=== PATIENT | female | born 1935 | race Caucasian/White ===

== ENCOUNTER 2018-06-16 13:49 | Inpatient (IN) | payer MEDICARE, BC ==
--- NOTE | 2018-06-16 14:17 | ED ---
Neurological HPI - HPI Summary HPI Summary: This patient is a 83 year old F BIBA to [facility] s/p fall that occurred at 1130. Pt states she woke up this morning and felt fine, she then went to the [facility] for lunch. Pt was seated when her right eye pulling to the middle, she felt pressure behind the eye, and she had visual changes. She states that when she shut her left eye her right was fine and when she shut her right eye her left eye was fine. She was seated playing cards at this time, without difficulty, and when she stood up to get something she felt off balance and fell over. Patient reports that she still feels off balance and that her right eye is still bothering her. Pt denies feeling light headed or a feeling of near syncope. She also denies LOC and injury on fall. Pt states she had a similar episode years ago and that it resolved quickly. Pt is on on blood thinners. She states that her wooziness is worse when she stands. - History of Current Complaint Chief Complaint: EDSyncope Stated Complaint: DIZZINESS Time Seen by Provider: 06/16/18 14:02 Hx Obtained From: Patient Onset/Duration: Started hours ago, Still Present Timing: Constant Onset Severity: Mild Current Severity: Mild Pain Intensity: 0 Pain Scale Used: 0-10 Numeric Character: Other: - off balance Syncope Context: Loss of Consciousness: No Associated Signs and Symptoms: Positive: Lightheadness. Negative: Loss of Consciousness, Dizziness - Allergy/Home Medications Allergies/Adverse Reactions: Allergies Allergy/AdvReac Type Severity Reaction Status Date / Time prednisone Allergy See Comment Verified 06/16/18 14:07 Home Medications: Home Medications Albuterol HFA INHALER* [Ventolin HFA Inhaler*] 2 puff INH Q4H PRN 06/16/18 [ History Confirmed 06/16/18] Atorvastatin* [Lipitor*] 80 mg PO DAILY 06/16/18 [History Confirmed 06/16/18] Balsalazide Sodium CAP(NF) [Colazal CAP(NF)] 750 mg PO BID 06/16/18 [History Confirmed 06/16/18] Calcium Carbonate/Vitamin D3 [Calcium 600 + Vit D Tablet] 1 tab PO DAILY [History Confirmed 06/16/18] Dofetilide CAP* [Tikosyn CAP*] 125 mcg PO BID 06/16/18 [History Confirmed ] Dulaglutide (NF) [Trulicity (NF)] 0.75 mg SUBCUT WEEKLY 06/16/18 [History Confirmed 06/16/18] Lansoprazole CAP (NF) [Prevacid CAP (NF)] 30 mg PO DAILY 06/16/18 [History Confirmed 06/16/18] Levothyroxine TAB* [Synthroid TAB*] 12.5 mcg PO DAILY 06/16/18 [History Confirmed 06/16/18] Lisinopril TAB* [Prinivil TAB*] 5 mg PO DAILY 06/16/18 [History Confirmed ] Losartan TAB* [Cozaar TAB*] 25 mg PO DAILY 06/16/18 [History Confirmed 06/16/18] Metoprolol Succinate XL TAB* [Toprol XL TAB*] 100 mg PO DAILY 06/16/18 [History Confirmed 06/16/18] Mometasone NASAL (NF) [Nasonex (NF)] 1 spray BOTH NARES DAILY 06/16/18 [History Confirmed 06/16/18] Nitrofurantoin Macrocrystals* [Macrodantin 100 mg*] 100 mg PO BID 06/16/18 [ History Confirmed 06/16/18] SitaGLIPtin (NF) [Januvia (NF)] 100 mg PO DAILY 06/16/18 [History Confirmed 11/02] Spironolactone TAB* [Aldactone TAB*] 25 mg PO DAILY 06/16/18 [History Confirmed 06/16/18] glipiZIDE TAB* [Glucotrol TAB*] 5 mg PO BID 06/16/18 [History Confirmed 06/16/18 ] PMH/Surg Hx/FS Hx/Imm Hx Endocrine/Hematology History: Reports: Hx Diabetes - ON MEDS, Hx Thyroid Disease - HYPOTHYROID, Hx Anemia - SLIGHTLY Denies: Hx Bone Marrow Disease, Hx Sickle Cell Disease Cardiovascular History: Reports: Hx Coronary Artery Disease, Hx Hypercholesterolemia, Hx Hypertension, Hx Valvular Heart Disease - MITRAL VALVE REPLACEMENT 01/2012, Other Cardiovascular Problems/Disorders - cardiac ablation X2, afib,MVR Respiratory History: Reports: Hx Asthma, Hx Pneumonia, Hx Sleep Apnea - CPAP GI History: Reports: Hx Gastroesophageal Reflux Disease, Other GI Disorders - UNCERATIVE COLITIS- IN REMISSION Musculoskeletal History: Reports: Hx Arthritis - HANDS,ELBOWS,BACK,KNEES Sensory History: Reports: Hx Contacts or Glasses - glasses, Hx Glaucoma Denies: Hx Hearing Aid Opthamlomology History: Reports: Hx Contacts or Glasses - glasses, Hx Glaucoma - Surgical History Surgery Procedure, Year, and Place: mitral valve replacement, cardiac ablation x2; hysterectomy 1975, left breast cyst removal 1975, tonsillectomy, Hx Anesthesia Reactions: No Infectious Disease History: No Infectious Disease History: Denies: Traveled Outside the [place] in Last 30 Days - Family History Known Family History: Positive: Hypertension - Social History Alcohol Use: None Substance Use Type: Reports: None Smoking Status (MU): Never Smoked Tobacco Review of Systems Constitutional: Negative - injury , Other - trouble ambulating Positive: Other - fall ENT: Other - right eye pulling to the middle, she felt pressure behind the eye , and she had visual changes Neurological: Negative - light headedness , Other - "feels woozy" Negative: Syncope All Other Systems Reviewed And Are Negative: Yes Physical Exam - Summary Physical Exam Summary: Appearance: Well-appearing, Well-nourished, lying in bed comfortably Skin: Warm, dry, no obvious rash Eyes: sclera anicteric, no conjunctival pallor ENT: mucous membranes moist, pharynx appears normal Neck: Supple, nontender Respiratory: Clear to auscultation, no signs of respiratory distress Cardiovascular: Normal S1, S2. No murmurs. Normal distal pulses in tibial and radial bilaterally. Abdomen: Soft, nontender, normal active bowel sounds present Musculoskeletal: Normal, Strength/ROM Intact Neurological: A&Ox3, there is mild fine motor ataxia as well as truncal ataxia. The fine motor ataxia is most pronounced on the right. The patient notes diplopia when gazing to the left although I do not see any definite gaze paresis. There is some horizontal nystagmus of the left eye. The remainder of the cranial nerve exam is normal. Strength in the extremities is felt to be normal, as are deep tendon reflexes. Heel to dan maneuver is normal bilaterally. The patient was able to get up to sit I needed, but upon standing she immediately became unsteady and had to be supported. She was unable to take a step. Psychiatric: affect is normal, does not appear anxious or depressed Triage Information Reviewed: Yes Vital Signs On Initial Exam: Initial Vitals Temp Pulse Resp BP Pulse Ox 98.5 F 83 16 162/95 98 06/16/18 13:55 06/16/18 13:55 06/16/18 13:55 06/16/18 13:55 06/16/18 13:55 Vital Signs Reviewed: Yes - Mariana Coma Scale Best Eye Response: 4 - Spontaneous Best Motor Response: 6 - Obeys Commands Best Verbal Response: 5 - Oriented Coma Scale Total: 15 Diagnostics - Vital Signs Vital Signs Temp Pulse Resp BP Pulse Ox 06/16/18 13:55 98.5 F 83 16 162/95 98 - Laboratory Result Diagrams: 06/16/18 15:00 06/17/18 06:01 Lab Statement: Any lab studies that have been ordered have been reviewed, and results considered in the medical decision making process. - CT CT brain CT Interpretation Completed By: Radiologist - 1. NO EVIDENCE FOR GROSS ACUTE INFARCT, MASS EFFECT OR HEMORRHAGE. 2. CONSIDER MR IMAGING FOR FURTHER EVALUATION. 3. OLD LACUNAR INFARCTS. ED physician has reviewed this radiology report. - EKG 1513 Cardiac Rate: Other Rate - Atrial- sensed ventricular paced rhythm EKG Interpretation: paced NIH Scale - NIH Scale Level of Consciousness: Alert/Keenly Responsive Ask Patient the Month and His/Her Age: Both Correct Ask Pt to Open/Close Eyes and Reformatory Attendant/Release Non-Paretic Hand: Both Correctly Best Gaze (Only Horizontal Eye Movement): Normal Visual Field Testing: Partial Hemianopia Facial Paresis-Pt to Smile & Close Eyes or Grimace Symmetry: Normal/Symmetrical Motor Function - Right Arm: No Drift-Holds 10 Seconds Motor Function - Left Arm: No Drift-Holds 10 Seconds Motor Function - Right Leg: No Drift-Holds 10 Seconds Motor Function - Left Leg: No Drift-Holds 10 Seconds Limb Ataxia-Must be out of Proportion to Weakness Present: Present in One Limb Sensory (Use Pinprick to Test Arms/Legs/Trunk/Face): Normal Best Language (Describe Picture, Name Items): No Aphasia Dysarthria (Read Several Words): Normal Extinction and Inattention: No Abnormality Total Score: 2 Course/Dx - Course Assessment/Plan: This patient is a 83 year old F BIBA to [facility] s/p fall that occurred at 1130. Pt states she woke up this morning and felt fine, she then went to the [facility] for lunch. Pt was seated when her right eye pulling to the middle, she felt pressure behind the eye, and she had visual changes. She states that when she shut her left eye her right was fine and when she shut her right eye her left eye was fine. She was seated playing cards at this time, without difficulty, and when she stood up to get something she felt off balance and fell over. Patient reports that she still feels off balance and that her right eye is still bothering her. Pt denies feeling light headed or a feeling of near syncope. She also denies LOC and injury on fall. Pt states she had a similar episode years ago and that it resolved quickly. Pt is on on blood thinners. She states that her wooziness is worse when she stands. An EKG reveals paced. CT Brain reveals, per radiologist, 1. NO EVIDENCE FOR GROSS ACUTE INFARCT, MASS EFFECT OR HEMORRHAGE. 2. CONSIDER MR IMAGING FOR FURTHER EVALUATION. 3. OLD LACUNAR INFARCTS. The patient will be admitted for CVA. The patient is agreeable with this plan. - Differential Dx Differential Diagnoses Neuro: Positive: Cerebrovascular Accident, Hypoglycemia, Labyrinthitis, Vasovagal Reaction - Diagnoses Provider Diagnoses: CVA (cerebral vascular accident) - Physician Notifications Discussed Care Of Patient With: Justa Okeefe Time Discussed With Above Provider: 15:01 Instructed by Provider To: Other - Admitted to hospitalist, obtain MRI of the brain. Neurologist will see the patient in the hospital. Discharge - Sign-Out/Discharge Documenting (check all that apply): Patient Departure - Discharge Plan Condition: Guarded Disposition: ADMITTED TO [facility] - Billing Disposition and Condition Condition: GUARDED Disposition: Admitted to [facility] - Attestation Statements Document Initiated by Renetta: Yes Documenting Scribe: Bert Lara Provider For Whom Renetta is Documenting (Include Credential): Chato Aguilera MD Scribe Attestation: Bert Chester , kassyed for Chato Aguilera MD on 06/17/18 at 1024. Scribe Documentation Reviewed: Yes Provider Attestation: The documentation as recorded by the Bert sosa accurately reflects the service I personally performed and the decisions made by me, Chato Aguilera MD
--- NOTE | 2018-06-16 14:51 | RAD ---
INDICATION: Acute ataxia, suspect cerebellar infarct. COMPARISON: There are no relevant prior studies available for comparison. TECHNIQUE: Contiguous axial sections of the brain were obtained from the skull base to the vertex without contrast. FINDINGS: The ventricles, cisterns and sulci are enlarged consistent with diffuse atrophy. There are small areas of decreased density in the subcortical and periventricular white matter suggestive of mild chronic small vessel ischemic changes. There appeared be bilateral lacunar chronic infarcts in the frontal lobes. There is no evidence for hemorrhage. No significant focal osseous abnormality is seen. The visualized portion of the paranasal sinuses and mastoid air cells appear clear. IMPRESSION: 1. NO EVIDENCE FOR GROSS ACUTE INFARCT, MASS EFFECT OR HEMORRHAGE. 2. CONSIDER MR IMAGING FOR FURTHER EVALUATION. 3. OLD LACUNAR INFARCTS.
[2018-06-16 15:16] LABS: ABS Basophils 0 10^3/ul (0-0.2); ABS Eosinophils 0.1 10^3/ul (0-0.6); ABS Monocytes 0.8 10^3/ul (0-0.8); ABS Neutrophils 5.3 10^3/ul (1.5-7.7); ABS Nucleated RBC 0 10^3/ul; Eosinophil % 1.5 % (0-6); Hematocrit 28 % (35-47); Hemoglobin 9.1 g/dl (12.0-16.0); Lymphocyte % 23.9 % (25-47); Mean Corpuscular HGB Conc 33 g/dl (31-36); Mean Corpuscular Hemoglobin 28 pg (27-31); Mean Corpuscular Volume 86 fL (80-97); Mean Platelet Volume 7.5 um3 (7.4-10.4); Nucleated Red Blood Cells % 0; Platelet Count 261 10^3/ul (150-450); Red Blood Count 3.22 10^6/ul (4.00-5.40); Red Cell Distribution Width 16 % (10.5-15); White Blood Count 8.2 10^3/ul (3.5-10.8)
[2018-06-16 15:23] LABS: INR 1.2 (0.77-1.02)
[2018-06-16 15:28] LABS: Urine Appearance Clear; Urine Blood Negative (Negative); Urine Color Yellow; Urine Ketones Negative (Negative); Urine Protein Negative (Negative); Urine Specific Gravity 1.009 (1.010-1.030); Urine Urobilinogen Negative (Negative)
[2018-06-16 15:46] LABS: EGFR Non-African American 44.4 (>60)
[2018-06-16] MEDS ORDERED: Iodixanol* (CONTRAST) 320 MG/ML 100 ML SDV IV ONE (15:53)
[2018-06-16] MEDS ORDERED: Albuterol HFA INHALER* 8 gm MDI INH PRN (16:08)
--- NOTE | 2018-06-16 16:12 | ADMNOTE ---
Subjective Date of Service: 06/16/18 Interval History: ADMISSION HISTORY AND PHYSICAL EXAM: Allergies Allergy/AdvReac Type Severity Reaction Status Date / Time prednisone Allergy See Comment Verified 06/16/18 14:07 Home Medications Medication Instructions Recorded Confirmed Type Multivitamins/Minerals TAB* [Thera 1 tab PO DAILY 08/14/12 06/16/18 History M Plus*] Rivaroxaban TAB(*) [Xarelto 20 mg] 20 mg PO DAILY 09/30/14 06/16/18 History metFORMIN* [Glucophage*] 1 tab PO BID 09/30/14 06/16/18 History Clopidogrel TAB* [Plavix TAB*] 75 mg PO DAILY 01/11/15 06/16/18 History Albuterol HFA INHALER* [Ventolin 2 puff INH Q4H PRN 06/16/18 06/16/18 History HFA Inhaler*] Atorvastatin* [Lipitor*] 80 mg PO DAILY 06/16/18 06/16/18 History Balsalazide Sodium CAP(NF) 750 mg PO BID 06/16/18 06/16/18 History [Colazal CAP(NF)] Calcium Carbonate/Vitamin D3 1 tab PO DAILY 06/16/18 06/16/18 History [Calcium 600 + Vit D Tablet] Dofetilide CAP* [Tikosyn CAP*] 125 mcg PO BID 06/16/18 06/16/18 History Dulaglutide (NF) [Trulicity (NF)] 0.75 mg SUBCUT WEEKLY 06/16/18 06/16/18 History Lansoprazole CAP (NF) [Prevacid 30 mg PO DAILY 06/16/18 06/16/18 History CAP (NF)] Levothyroxine TAB* [Synthroid TAB*] 12.5 mcg PO DAILY 06/16/18 06/16/18 History Lisinopril TAB* [Prinivil TAB*] 5 mg PO DAILY 06/16/18 06/16/18 History Losartan TAB* [Cozaar TAB*] 25 mg PO DAILY 06/16/18 06/16/18 History Metoprolol Succinate XL TAB* 100 mg PO DAILY 06/16/18 06/16/18 History [Toprol XL TAB*] Mometasone NASAL (NF) [Nasonex 1 spray BOTH NARES DAILY 06/16/18 06/16/18 History (NF)] Nitrofurantoin Macrocrystals* 100 mg PO BID 06/16/18 06/16/18 History [Macrodantin 100 mg*] SitaGLIPtin (NF) [Januvia (NF)] 100 mg PO DAILY 06/16/18 06/16/18 History Spironolactone TAB* [Aldactone 25 mg PO DAILY 06/16/18 06/16/18 History TAB*] glipiZIDE TAB* [Glucotrol TAB*] 5 mg PO BID 06/16/18 06/16/18 History HPI: The patient was in her usual state of health until today about 12:30. She was playing cards with some friends. When she got up from the table and walked a few steps she was very dizzy and fell to the left side and fell down. She had diploplia. 911 was called. She never had this feeling before. Family History: Findings - Mother had DM, father had atrial fib. Social History: Findings - No alcohol or tobacco use. . Son Simon Anderson is her SDM. Past Medical History: Findings - Mitral valve bioprosthesis 2011. Coronary stenting 2014. Ablation. Tonsillectomy, breast sx, hysterectomy, LBBB, ischemic cardiomyopathy, Review of Systems - Measurements Intake and Output: Intake and Output Last 24 Hours 06/14/18 06/15/18 06/16/18 06/17/18 06:59 06:59 06:59 06:59 Weight 164 lb - Review of Systems Constitutional Symptoms: Negative: Weight Gain, Weight Loss, Weakness, Fatigue, Fever, Night Sweats, Unexplained Falls, Other Dermatology: Positive: Normal HEENT: Positive: Normal Eyes: Positive: Double Vision Thyroid: Positive: Primary Hypothyroidism Pulmonary: Positive: Normal Cardiology: Positive: Other - PAF Gastroenterology: Positive: Normal Genital - Urinary: Positive: Normal Endocrinology: Positive: Thyroid Problems, Diabetes Mellitus Hematologic/Lymphatic: Positive: Anemia Neurology: Positive: Normal Psychiatry: Positive: Normal Allergic/Immunologic: Negative: Hx Anaphylaxis, Hx Angioedema, Hx Environmental, Hx Seasonal, Athsma, Hx HIV, Immunocompromise, Swollen Glands LymphNodes, Other Objective Vital Signs - 8 hr 06/16/18 06/16/18 06/16/18 13:55 13:56 14:00 Temperature 98.5 F Pulse Rate 83 87 84 Respiratory 16 Rate Blood Pressure 162/95 162/95 (mmHg) O2 Sat by Pulse 98 98 97 Oximetry 06/16/18 06/16/18 06/16/18 14:16 14:37 14:56 Temperature Pulse Rate 86 86 83 Respiratory 15 19 22 Rate Blood Pressure 195/77 166/92 170/69 (mmHg) O2 Sat by Pulse 94 95 95 Oximetry 06/16/18 06/16/18 15:00 15:26 Temperature Pulse Rate 81 80 Respiratory 20 15 Rate Blood Pressure 157/80 (mmHg) O2 Sat by Pulse 94 95 Oximetry Oxygen Devices in Use Now: None Appearance: Alert, partly up in bed. In good spirits. Looks comfortable. Eyes: No Scleral Icterus Ears/Nose/Mouth/Throat: Clear Oropharnyx, Mucous Membranes Moist Neck: NL Appearance and Movements; NL JVP, No Thyroid Enlargement, Masses Respiratory: Symmetrical Chest Expansion and Respiratory Effort, Clear to Auscultation, Clear to Percussion Extremities: No Edema, No Clubbing, Cyanosis, - Skin: No Rash or Ulcers, No Nodules or Sclerosis, - Neurological: Alert and Oriented x 3, NL Sensation Result Diagrams: 06/16/18 15:00 06/16/18 15:00 Assess/Plan/Problems-Billing Assessment: - Patient Problems (1) CVA (cerebral vascular accident) Current Visit: Yes Status: Acute Code(s): I63.9 - CEREBRAL INFARCTION, UNSPECIFIED SNOMED Code(s): 328836271 Comment: Dr. Okeefe to evaluate. CTA head/neck ordered. PT eval. Continue rivaroxaban. (2) Diabetes Current Visit: Yes Status: Acute Code(s): E11.9 - TYPE 2 DIABETES MELLITUS WITHOUT COMPLICATIONS SNOMED Code(s): 96181263 Comment: Continue home dose glargine insulin. Lispro by SS. Hold metformin , continue gipizide and other meds as available. (3) Hypothyroid Current Visit: Yes Status: Acute Code(s): E03.9 - HYPOTHYROIDISM, UNSPECIFIED SNOMED Code(s): 53011705 Comment: Add on TSH. Continue levothyroxine. (4) Atrial fibrillation Current Visit: Yes Status: Acute Code(s): I48.91 - UNSPECIFIED ATRIAL FIBRILLATION SNOMED Code(s): 83454140 Comment: Continue dofetilide, metoprolol, rivaroxaban.
[2018-06-16] MEDS ORDERED: NS 0.9% 1000 ML* 1,000 ML IV SCH (16:15)
--- NOTE | 2018-06-16 17:54 | RAD ---
INDICATION: Ataxia. COMPARISON: Comparison is made with a prior CT of the brain from June 16, 2018. TECHNIQUE: A CT angiogram of the head and neck was performed following intravenous injection of 80 ml of Visipaque 320 nonionic contrast. Contiguous axial sections were obtained from the thoracic inlet through the skull vertex. Images were reconstructed in the coronal and sagittal planes and in a 3-D volume rendered format. The distal cervical internal carotid artery diameter is used as the denominator for stenosis measurement. FINDINGS: RIGHT CAROTID: The common and internal carotid arteries appear patent without evidence for hemodynamically significant stenosis. There is mild calcific plaque within the carotid bulb and proximal internal carotid artery. LEFT CAROTID: The common and internal carotid arteries appear patent without evidence for hemodynamically significant stenosis. There is mild calcific plaque within the carotid bulb and proximal internal carotid artery. VERTEBRALS: The vertebral arteries appear patent without evidence for high-grade stenosis or occlusion. CTA BRAIN: ANTERIOR CIRCULATION: The internal carotid, anterior and middle cerebral arteries appear patent without evidence for high-grade stenosis or occlusion. There is moderate calcific plaque within the petrous and cavernous portions of the internal carotid arteries. POSTERIOR CIRCULATION: The vertebral, basilar and posterior cerebral arteries appear patent without evidence for high-grade stenosis or occlusion. There is moderate to severe calcific plaque present within the intracranial portions of the vertebral arteries. BRAIN PERFUSION: No gross focal perfusion abnormalities are seen. EVALUATION FOR ANEURYSM: No aneurysm or vascular malformation is seen. NECK: No significant enlarged lymph nodes are seen within the neck. The thyroid, parotid and submandibular glands appear to be within normal limits. LUNG APICES: The lung apices appear clear. SINUSES: The paranasal sinuses and mastoid air cells appear clear IMPRESSION: 1. NO EVIDENCE FOR HEMODYNAMICALLY SIGNIFICANT CAROTID STENOSIS. 2. NO EVIDENCE FOR LARGE VESSEL INTRACRANIAL THROMBUS. 3. MODERATE TO SEVERE CALCIFIC PLAQUE WITHIN THE INTRACRANIAL SEGMENT OF THE VERTEBRAL ARTERIES. CPT II Codes: 3100F
[2018-06-16] MEDS ORDERED: Acetaminophen TAB* 325 MG PO PRN (20:22)
[2018-06-16] MEDS: Dofetilide CAP* 125 MCG PO SCH (21:06)
[2018-06-16] MEDS: glipiZIDE TAB* 5 MG PO SCH (21:06)
[2018-06-16] MEDS: Nitrofurantoin Macrocrystals* 100 MG CAP PO SCH (21:06)
[2018-06-16] MEDS: PTO:Balsalazide (NF) 750 MG CAP PO SCH (21:07)
--- NOTE | 2018-06-17 00:48 | CONS ---
NEUROLOGY CONSULTATION REPORT: DATE OF CONSULT: 06/16/18 CONSULTING PROVIDER: Dr. Chato Aguilera. REASON FOR CONSULT: Unsteady gait. CHIEF COMPLAINT: Falling towards the left side. HISTORY OF PRESENT ILLNESS: Ms. Sonal Anderson is a pleasant 83-year-old right- handed who has a history of hypertension; dyslipidemia; diabetes mellitus type 2; atrial fibrillation, on Xarelto; valvular heart disease, status post mitral valve replacement; pacemaker/defibrillator implanted in 2014, who presented to [facility] with sudden onset gait imbalance. The patient was in normal state of health earlier this morning. She was going to the [employer] to play [employer]. She was fine going in at 11:30. She was actually helping set up the snack tables. The patient played for approximately 15-20 minutes. She stood up to change from one table to another when suddenly she fell. She did hit her left knee. She bruised the left knee. She did not hit her head. She did not lose consciousness. She was having trouble standing up as if every time she stood up, she would sway towards the left side. During the same time period, the patient stated that she felt some pulling sensation in the right eye. She felt that her right eye was going towards the medial aspect of her vision instead of looking out. She also had double vision, which she described as horizontal. She did not close one eye to check if the double vision will go away. She denied any double vision at this time, but still has gait imbalance. She has never had any similar episodes in the past, although she did have double vision 5 years ago that seemed to spontaneously resolve. The patient has no history of stroke. She had a CT of the head completed at 1414 that I personally reviewed. There is evidence of old lacunar infarcts. There is no evidence of an acute intracranial process; however, there is calcification involving both left greater than right vertebral arteries. PAST MEDICAL HISTORY: As per HPI and in addition, she has a history of ulcerative colitis. PAST SURGICAL HISTORY: 1. Mitral valve bioprosthesis, 2011. 2. Coronary artery stenting, 2014. 3. Pacemaker/defibrillator placement in 2014. 4. Ablation for atrial fibrillation. 5. Tonsillectomy. 6. Breast biopsy. 7. Hysterectomy. 8. Left bundle-branch block. 9. Ischemic cardiomyopathy. HOME MEDICATIONS: 1. Multivitamins. 2. Rivaroxaban 20 mg p.o. daily. 3. Metformin 1 tablet p.o. b.i.d. 4. Clopidogrel 75 mg p.o. daily. 5. Albuterol 2 puffs inhaled every 4 hours. 6. Atorvastatin 80 mg p.o. daily. 7. Balsalazide 750 mg b.i.d. 8. Calcium carbonate 1 tablet p.o. daily. 9. Dulaglutide 0.75 mg subcutaneously weekly. 10. Lansoprazole 30 mg p.o. daily. 11. Levothyroxine 12.5 mcg daily. 12. Lisinopril 5 mg p.o. daily. 13. Metoprolol 100 mg p.o. daily. 14. Mometasone spray both nares. 15. Nitrofurantoin 100 mg p.o. b.i.d. 16. Sitagliptin 100 mg p.o. daily. 17. Spironolactone 25 mg p.o. daily. 18. Glipizide 5 mg p.o. b.i.d. ALLERGIES: Questionable allergy to PREDNISONE. REVIEW OF SYSTEMS: A 14-point review of systems was obtained, were otherwise negative except for what was mentioned in the HPI. PHYSICAL EXAM: Vital Signs: Temperature 98.5, heart rate 81, respiratory rate of 15, oxygen saturation 95% on room air, blood pressure 157/80. General: Well - nourished, well-developed female, in no acute distress. Normocephalic, atraumatic without any obvious abnormality. Eyes: Conjunctivae/corneas are clear. Neck is supple and symmetrical with no carotid bruits. Lungs are clear to auscultation bilaterally. Irregular rhythm with normal rate. Normal S1, S2. Extremities: Normal range of motion with no cyanosis. There is slight laceration in the left knee region, but no bleeding. Skin: No skin lesions. Psych: Affect is broad. Neurological Examination: Mental status; awake, alert , oriented to person, place and time, and general circumstance. Speech and language including expression, naming, and repetition and comprehension were all assessed and found to be normal. Cranial nerves: Normal confrontation testing bilaterally. Pupils are mid range and reactive to light. Normal consensual response. Extraocular muscles are intact. She has no ptosis. Sensation is intact on the forehead, cheeks, and jaw region. There is a slight upper motor neuron facial droop on the left. This is very mild. Able to hear throughout the history process. Symmetrical palate elevation. Normal strength against resistance. Tongue is symmetrical and midline with no atrophy or fasciculation. Motor: Right/left, no abnormal movements or pronator drift. Normal bulk and tone throughout. No fasciculation. Strength is 5/5 in the upper and lower, distal and proximal motor regions. Reflexes, right/Left: Brachioradialis 1/1, biceps 1/2, triceps 1/2, patella 1/1, ankle 0/0, plantar flexor/flexor. Sensation is intact to light touch and pinprick throughout. There is reduced vibratory sensation, but intact proprioception at the great toes. Coordination: Mild dysmetria at the [id number] and [id number] testing on the left side. Gait and Station: Ataxia. The patient is swaying to the left side. Wide-based gait. DIAGNOSTIC STUDIES/LAB DATA: WBC 8.2, hemoglobin 9.1, hematocrit 28, platelet count 261. INR 1.20. Sodium 136, potassium 4.4, chloride 105, carbon dioxide 24. BUN of 1.16. Troponin of 0.22. Urinalysis, no pyuria. ASSESSMENT AND RECOMMENDATION: Ms. Sonal Anderson is an 83-year-old female with history of hypertension; dyslipidemia; coronary artery disease; atrial fibrillation, on Xarelto, she is also taking Plavix; ischemic cardiomyopathy, who is status post pacemaker defibrillator placement, which we suspect could possibly be MRI compatible, who presented with transient symptoms of horizontal diplopia, which has resolved but still with persistent ataxia towards the left side. The differential diagnosis here is an ischemic stroke involving the left cerebellum, left maxwell, or the right parietal hemisphere involving the right MCA distribution. NIH stroke scale of 2 due to mild left facial droop and dysmetria. She is not a candidate for IV tPA as she is outside the therapeutic window; however, we will need a stat CTA head and neck to evaluate for any posterior circulatory occlusion, especially basal artery occlusion. I doubt that given her clinical examination, but she can deteriorate rapidly if this is the case. In the meantime, I recommend admission to the hospitalist service for further stroke workup and post stroke monitoring. Neuro checks every 4 hours over the next 24 hours. Please order a 2-D transthoracic echo. I discussed this case with the bedside nurse who will call our cardiopulmonary technician and eeg tech to obtain the CTA head and neck as soon as possible. Please place her on telemetry. I will check fasting lipid panel. Continue the Plavix and Xarelto. Given that she is on anticoagulation therapy and antiplatelet therapy, please keep her systolic blood pressure range between 140 to less than 180. PT/OT/AIRCRAFT AVIONICS TECHNICIAN evaluate and treat. Please perform a bedside swallow evaluation. If she passes, then advance her diet as tolerated. Do not place a urinary catheter unless there is evidence of urinary retention. VTE prophylaxis, she is already on Xarelto. 1. Suspect acute ischemic stroke involving the posterior circulation 2. Hypertensive urgency. 3. Chronic atrial fibrillation. 4. History of coronary artery disease. 5. Diabetes. 6. Dyslipidemia. 7. Ischemic cardiomyopathy. Time Spent: 75 minutes of which more than 50% was spent obtaining history, examination, and discussing the treatment plan and recommendation as mentioned above. [id number]/CPS #: [id number] MTDD
[2018-06-17] MEDS: Levothyroxine TAB* 25 MCG TAB PO SCH (05:50)
[2018-06-17 07:21] LABS: EGFR Non-African American 143.4 (>60)
[2018-06-17] MEDS ORDERED: Clopidogrel TAB* 75 MG PO SCH (09:00)
[2018-06-17] MEDS ORDERED: Dextrose 50% Syringe 50 ML* 25 GM/50 ML SYRINGE IV PUSH PRN (09:10)
[2018-06-17] MEDS: CMC:SitaGLIPtin (NF) 100 MG TAB PO SCH (09:32)
[2018-06-17] MEDS: Losartan TAB* 25 MG PO SCH (09:33)
[2018-06-17] MEDS: glipiZIDE TAB* 5 MG PO SCH ×2 (09:33→21:19)
[2018-06-17] MEDS: Lisinopril TAB* 5 MG PO SCH (09:33)
[2018-06-17] MEDS: Dofetilide CAP* 125 MCG PO SCH ×2 (09:33→21:18)
[2018-06-17] MEDS: CMC:Pantoprazole TAB (NF) 40 MG TAB PO SCH (09:33)
[2018-06-17] MEDS: Spironolactone TAB* 25 MG PO SCH (09:33)
[2018-06-17] MEDS: Atorvastatin* 80 MG TAB PO SCH (09:34)
[2018-06-17] MEDS: Nitrofurantoin Macrocrystals* 100 MG CAP PO SCH ×2 (09:34→21:18)
[2018-06-17] MEDS: Metoprolol Succinate XL TAB* 100 MG PO SCH (09:34)
[2018-06-17] MEDS ORDERED: Magnesium Sulfate 1 GM IV* 1 GM/100 ML BAG IV ONE (10:05)
--- NOTE | 2018-06-17 10:31 | PN ---
Subjective Date of Service: 06/17/18 Length of Stay: 1 Days Neurology is following Mrs. Anderson for the evaluation and management of stroke. Interval History: She slept well last night. The TV kept flickering on and off and she thinks her was in the room. Her had past away years ago. She denied any visual or auditory hallucinations. She denied any falls. She walked around the hallway with me and was staggering. She is tolerating Xarelto and Plavix. She does have chronic numbness in her feet. She also stated that she never had a normal gait and always staggers when walking. She doesn't fall much but the times she did fall, it was due to tripping over her feet. CTA head and neck without contrast completed on 06/16/2018: no large vessel occlusion. She has calcification throughout the vertebral arteries bilaterally. Review of Systems: Denied CP, SOB, or palpitations. Family History: Findings - Mother had DM, father had atrial fib. Social History: Findings - No alcohol or tobacco use. . Son Simon Anderson is her SDM. Past Medical History: Findings - Mitral valve bioprosthesis 2011. Coronary stenting 2014. Ablation. Tonsillectomy, breast sx, hysterectomy, LBBB, ischemic cardiomyopathy, Objective Active Medications: Acetaminophen (Tylenol Tab*) 650 mg PO Q4H PRN PRN Reason: FEVER/PAIN Last Admin: 06/16/18 21:05 Dose: 650 mg Albuterol (Ventolin Hfa Inhaler*) 2 puff INH Q4H PRN PRN Reason: SHORTNESS OF BREATH Atorvastatin Calcium (Lipitor*) 80 mg PO DAILY [facility] Last Admin: 06/17/18 09:34 Dose: 80 mg Balsalazide (Balsalazide (Nf)) 750 mg PO BID [facility] Last Admin: 06/16/18 21:07 Dose: Not Given Clopidogrel Bisulfate (Plavix Tab*) 75 mg PO DAILY [facility] Last Admin: 06/17/18 09:33 Dose: 75 mg Dextrose (D50w Syringe 50 Ml*) 12.5 gm IV PUSH .FOR FS < 60 - SS PRN PRN Reason: FS < 60 Dofetilide (Tikosyn Cap*) 125 mcg PO BID [facility] Last Admin: 06/17/18 09:33 Dose: 125 mcg Glipizide (Glucotrol Tab*) 5 mg PO BID [facility] Last Admin: 06/17/18 09:33 Dose: 5 mg Sodium Chloride (Ns 0.9% 1000 Ml*) 1,000 mls @ 60 mls/hr IV .PER RATE [facility] Last Admin: 06/16/18 20:12 Dose: 60 mls/hr Magnesium Sulfate/Dextrose (Magnesium Sulfate 1 Gm Iv*) 1 gm in 100 mls @ 200 mls/hr IV ONCE ONE Stop: 06/17/18 10:34 Insulin Human Lispro (Humalog*) 0 units SUBCUT ACHS [facility]; Protocol Levothyroxine Sodium (Synthroid Tab*) 12.5 mcg PO DAILY@0600 [facility] Last Admin: 06/17/18 05:50 Dose: 12.5 mcg Lisinopril (Prinivil Tab*) 5 mg PO DAILY [facility] Last Admin: 06/17/18 09:33 Dose: 5 mg Losartan Potassium (Cozaar Tab*) 25 mg PO DAILY [facility] Last Admin: 06/17/18 09:33 Dose: 25 mg Metoprolol Succinate (Toprol Xl Tab*) 100 mg PO DAILY [facility] Last Admin: 06/17/18 09:34 Dose: 100 mg Mometasone Furoate (Nasonex (Nf)) 1 spray BOTH NARES DAILY [facility] Nitrofurantoin Macrocrystals (Macrodantin*) 100 mg PO BID [facility] Stop: 06/17/18 21:01 Last Admin: 06/17/18 09:34 Dose: 100 mg Pantoprazole Sodium (Protonix Tab (Nf)) 40 mg PO DAILY@0730 [facility]; Protocol Last Admin: 06/17/18 09:33 Dose: 40 mg Rivaroxaban (Xarelto(*)) 20 mg PO QPM [facility] Sitagliptin Phosphate (Januvia (Nf)) 100 mg PO DAILY [facility]; Protocol Last Admin: 06/17/18 09:32 Dose: 100 mg Spironolactone (Aldactone Tab*) 25 mg PO DAILY [facility] Last Admin: 06/17/18 09:33 Dose: 25 mg Vital Signs 06/16/18 06/16/18 06/16/18 13:55 13:56 14:00 Temperature 98.5 F Pulse Rate 83 87 84 Respiratory 16 Rate Blood Pressure 162/95 162/95 (mmHg) O2 Sat by Pulse 98 98 97 Oximetry 06/16/18 06/16/1818 14:16 14:37 14:56 Temperature Pulse Rate 86 86 83 Respiratory 15 19 22 Rate Blood Pressure 195/77 166/92 170/69 (mmHg) O2 Sat by Pulse 94 95 95 Oximetry 06/16/18 06/16/18 06/16/18 15:00 15:26 17:00 Temperature Pulse Rate 81 80 Respiratory 20 15 20 Rate Blood Pressure 157/80 (mmHg) O2 Sat by Pulse 94 95 Oximetry 06/16/18 06/16/18 06/16/18 18:45 20:00 22:51 Temperature 98 F 98.1 F Pulse Rate 81 76 Respiratory 20 16 16 Rate Blood Pressure 158/68 117/45 (mmHg) O2 Sat by Pulse 99 95 Oximetry 06/17/18 06/17/18 04:13 07:36 Temperature 98.0 F 97.8 F Pulse Rate 78 86 Respiratory 20 18 Rate Blood Pressure 133/54 152/64 (mmHg) O2 Sat by Pulse 95 97 Oximetry Intake and Output Last 24 Hours 06/15/18 06/16/18 06/17/18 06/18/18 06:59 06:59 06:59 06:59 Intake Total 480 Balance 480 Weight 165 lb 4.8 oz Intake: Oral 480 Other: Estimated Void Medium # Bowel Movements 0 # Voids 1 Oxygen Devices in Use Now: None Neurology Exam: General: Well nourished female in no acute distress. HEENT: Normocephelic/atraumatic, sclera anicteric, mucous membranes moist Neck: Supple Chest: Clear to auscultation bilaterally Cardiovascular: Regular rate and rhythm without murmurs, rubs, gallops Abdomen: Soft, nontender/nondistended Extremities: No clubbing, cyanosis, or edema Neurological Findings: Awake, alert and oriented to person, place, time, and situation. Cranial Nerve: PERRL, EOM-I, mild left facial asymmetry. Motor: s/s throughout, proximal and distal extremities x4 tone/bulk normal Sensation: distal to proximal sensory gradient to light-touch and pinprick demarcated at the mid dan region bilaterally. Deep Tendon Reflex: 1+ in upper extremities, 1+ on the right knee, 2+ left knee , and 0 at the ankles Finger to nose, rapid alternating movements intact without tremor Gait: wide based gait. She crosses right over left and vice versa when ambulating. Result Diagrams: 06/16/18 15:00 06/17/18 06:01 Diagnostic Imaging: CT head without contrast: personally reviewed again today. She has multiple small lacunar infarction. She has right frontal, basal ganglia and left frontal ischemic lacunar infarctions that are old. Assessment/Plan Mrs. Anderson is an 83-year-old female with history of DMII x 30 years, atrial fibrillation on Xarelto and s/p pacemaker/ICD, CAD on Plavix, who presented with sudden onset gait imbalance and fall. She was initially ataxic towards the left. She has a left facial droop. She was not a candidate for IV tPA due to being on Xarelto and was outside the window when evaluated by me. She had a STAT CTA head and neck on 06/16/2018 that showed no evidence of large vessel occlusion and chronic calcification in the vertebral arteries. Today, the patient was not lateralizing to one side but still has moderate sensory ataxia. 1. Suspect TIA or small lacunar stroke in the left cerebellar hemisphere- It is unclear if this is a thrombotic or embolic phenomenon. Work-up is still pending. - She is on Xarelto and Plavix and reports compliance - Please send out genetic testing to check for aspirin and clopidogrel resistant testing since she had this incident while on clopidogrel. I spoke with lab and they will be faxing a form to complete. The form will be mailed to [place] for further testing. - Continue Xarelto and Plavix. She is at high risk for bleeding on the combination of therapy, but clearly at a higher risk for a thromboembolic incident. - Repeat CT head without contrast today - PT/OT/FILTER TIP INSPECTOR evaluation and treatment - 2D TTE with Bubble study - Secondary stroke prevention was discussed with the patient - Pt was told to never have an MRI due to her pacemaker. 2. Hx of falls- multifactorial. The patient has evidence of polyneuropathy most likely related to diabetes and has history of lacunar strokes. 3. Diabetic polyneuropathy- B12 and TSH are normal 4. Hx of lacunar strokes- on Plavix. Keep SBP within normal range 5. Hx of atrial fibrillation- on Xarelto. She's in sinus rhythm Time Spent: 40 minutes was spent discussing the treatment plan with the patient , son, and Dr. Ortiz.
[2018-06-17] MEDS: MOMETASONE BOTH NARES SCH (10:42)
[2018-06-17] MEDS: PTO:Balsalazide (NF) 750 MG CAP PO SCH (11:03)
[2018-06-17] MEDS: BALSALAZIDE 750 MG PO SCH ×2 (11:27→21:18)
[2018-06-17] MEDS: Insulin LISPRO* 1 UNITS UNIT SUBCUT SCH ×3 (12:13→21:19)
--- NOTE | 2018-06-17 13:07 | PN ---
Subjective Date of Service: 06/17/18 Interval History: Pt feels " much better". Ataxia is improving. Is only slightly unsteady on her feet Family History: Findings - Mother had DM, father had atrial fib. Social History: Findings - No alcohol or tobacco use. . Son Simon Anderson is her SDM. Past Medical History: Findings - Mitral valve bioprosthesis 2011. Coronary stenting 2014. Ablation. Tonsillectomy, breast sx, hysterectomy, LBBB, ischemic cardiomyopathy, Objective Active Medications: Acetaminophen (Tylenol Tab*) 650 mg PO Q4H PRN PRN Reason: FEVER/PAIN Last Admin: 06/16/18 21:05 Dose: 650 mg Albuterol (Ventolin Hfa Inhaler*) 2 puff INH Q4H PRN PRN Reason: SHORTNESS OF BREATH Aspirin (Aspirin 81 Mg Chew Tab*) 81 mg PO DAILY [facility] Atorvastatin Calcium (Lipitor*) 80 mg PO DAILY [facility] Last Admin: 06/17/18 09:34 Dose: 80 mg Balsalazide (Balsalazide (Nf)) 1,500 mg PO BID [facility] Last Admin: 06/17/18 11:27 Dose: 1,500 mg Dextrose (D50w Syringe 50 Ml*) 12.5 gm IV PUSH .FOR FS < 60 - SS PRN PRN Reason: FS < 60 Dofetilide (Tikosyn Cap*) 125 mcg PO BID [facility] Last Admin: 06/17/18 09:33 Dose: 125 mcg Glipizide (Glucotrol Tab*) 5 mg PO BID [facility] Last Admin: 06/17/18 09:33 Dose: 5 mg Insulin Human Lispro (Humalog*) 0 units SUBCUT [facility]; Protocol Last Admin: 06/17/18 12:13 Dose: 2 units Levothyroxine Sodium (Synthroid Tab*) 12.5 mcg PO DAILY@0600 [facility] Last Admin: 06/17/18 05:50 Dose: 12.5 mcg Lisinopril (Prinivil Tab*) 5 mg PO DAILY [facility] Last Admin: 06/17/18 09:33 Dose: 5 mg Losartan Potassium (Cozaar Tab*) 25 mg PO DAILY [facility] Last Admin: 06/17/18 09:33 Dose: 25 mg Metoprolol Succinate (Toprol Xl Tab*) 100 mg PO DAILY [facility] Last Admin: 06/17/18 09:34 Dose: 100 mg Mometasone Furoate (Nasonex (Nf)) 1 spray BOTH NARES DAILY [facility] Last Admin: 06/17/18 10:42 Dose: 1 spray Nitrofurantoin Macrocrystals (Macrodantin*) 100 mg PO BID [facility] Stop: 06/17/18 21:01 Last Admin: 06/17/18 09:34 Dose: 100 mg Pantoprazole Sodium (Protonix Tab (Nf)) 40 mg PO DAILY@0730 [facility]; Protocol Last Admin: 06/17/18 09:33 Dose: 40 mg Rivaroxaban (Xarelto(*)) 20 mg PO QPM [facility] Sitagliptin Phosphate (Januvia (Nf)) 100 mg PO DAILY [facility]; Protocol Last Admin: 06/17/18 09:32 Dose: 100 mg Spironolactone (Aldactone Tab*) 25 mg PO DAILY [facility] Last Admin: 06/17/18 09:33 Dose: 25 mg Vital Signs - 8 hr 06/17/18 06/17/18 06/17/18 07:36 11:27 11:38 Temperature 97.8 F 97.6 F Pulse Rate 86 71 Respiratory 18 16 16 Rate Blood Pressure 152/64 130/57 (mmHg) O2 Sat by Pulse 97 98 Oximetry Oxygen Devices in Use Now: None Appearance: 83 yo F in nAD, aAOx3 Eyes: No Scleral Icterus, PERRLA Ears/Nose/Mouth/Throat: NL Teeth, Lips, Gums, Mucous Membranes Moist Neck: NL Appearance and Movements; NL JVP, Trachea Midline Respiratory: Symmetrical Chest Expansion and Respiratory Effort, Clear to Auscultation Cardiovascular: NL Sounds; No Murmurs; No JVD, RRR Abdominal: NL Sounds; No Tenderness; No Distention Lymphatic: No Cervical Adenopathy Extremities: No Edema, No Clubbing, Cyanosis Skin: No Rash or Ulcers, No Nodules or Sclerosis Neurological: Alert and Oriented x 3, - - mild flattening of left nasolalbial fold. mild ataxia. Motor 5/5 b/l, speech clear Result Diagrams: 06/16/18 15:00 06/17/18 06:01 Diagnostic Imaging: CT head without contrast: personally reviewed again today. She has multiple small lacunar infarction. She has right frontal, basal ganglia and left frontal ischemic lacunar infarctions that are old. Assess/Plan/Problems-Billing Mrs. Anderson is an 83-year-old female with history of DMII x 30 years, atrial fibrillation on Xarelto and s/p pacemaker/ICD, CAD on Plavix (Dr. Alva), who presented with sudden onset gait imbalance and fall. She was initially ataxic towards the left. She has a left facial droop. She was not a candidate for IV tPA due to being on Xarelto and was outside the window when evaluated by me. She had a STAT CTA head and neck on 06/16/2018 that showed no evidence of large vessel occlusion and chronic calcification in the vertebral arteries. - Patient Problems (1) CVA (cerebral vascular accident) Comment: Appreciate Dr. Okeefe's consult . CTA head/neck as above. Continue rivaroxaban. Unable to do MRI due to pacer. It is possible that pt may have genetic variant and does not respond to Plavix. Unfortunately genetic testing tkes several days and is not covered by insurance (as per d/w lab and DR. Okeefe) . Spoke with pt's shoes salesperson, Dr. Morse who agreed with switching to ASA from Plavix and recommends doing Plavix genetic testing as outpatient cont PT/OT, awaiting Echo with bubble (last echo inn 08/2018) showed EF 45% (2) Atrial fibrillation Comment: Continue dofetilide, metoprolol, rivaroxaban. (3) Diabetes Comment: Continue . Lispro by SS. Hold metformin, continue gipizide and other meds as available. (4) Hypothyroid Comment: TSH 4.2. Continue levothyroxine. (5) Ulcerative colitis Comment: not in exacerbation, cont balsalazide (6) UTI (urinary tract infection) Comment: E. coli UTI dx on 06/10/18, cont nitrofurantoin (7) DVT prophylaxis Comment: Xarelto Status and Disposition: inpatient
--- NOTE | 2018-06-17 13:15 | RAD ---
HISTORY: ataxia to left, resolving COMPARISONS: June 16, 2018 TECHNIQUE: Multiple contiguous axial CT scans were obtained of the head without intravenous contrast. FINDINGS: HEMORRHAGE/INFARCT: There is no hemorrhage or acute infarct. MASSES/SHIFT: There is no mass or shift. EXTRA-AXIAL SPACES: There are no extra-axial fluid collections. SULCI AND VENTRICLES: The sulci and ventricles are normal in size and position for the patient's stated age. CEREBRUM: There is mild hypoattenuation of the periventricular and subcortical white matter. There is stable chronic lacunar infarct of the right hernandez radiata. BRAINSTEM: There are no focal parenchymal abnormalities. CEREBELLUM: There are no focal parenchymal abnormalities. VESSELS: There is calcification of the cavernous segments of the internal carotid arteries bilaterally and of the distal vertebral arteries bilaterally. PARANASAL SINUSES: The paranasal sinuses are clear. ORBITS: The orbits are unremarkable. BONES AND SOFT TISSUE: No bone or soft tissue abnormalities are noted. OTHER: None IMPRESSION: NO ACUTE INTRACRANIAL PATHOLOGY. CHRONIC SMALL VESSEL ISCHEMIC CHANGE
[2018-06-17] MEDS ORDERED: Perflutren Lipid Microsphere* 3 ML VIAL ONE (14:07)
--- NOTE | 2018-06-17 16:14 | ECHO ---
Patient: DANIEL PEARL [facility] Rec#: [id number] : 1935 Date: 06/17/2018 Age: 83y Height: 163 cm / 64.2 in Weight: 75 kg / 165.3 lbs Sex: F BSA: 1.8 Room#: 438 Admit Date#: 06/16/2018 Type: Inpatient Referring: Justa Okeefe Reading: Evelyn Justin MD Kennel Technician: Yajaira Gutierrez RN RDCS CC: Vanessa Gómez Transthoracic Echocardiogram Indication: TIA BP: 152/64 Rhythm: Paced Findings History: A. fib, CAD, bioprosthetic MVR 2011, pacemaker insertion, DM, HTN, dyslipidemia, hypothyroidism, ischemic cardiomyopathy Technical Comments: The study quality is fair. Left Ventricle: The left ventricular chamber size is normal. Mild to moderate concentric left ventricular hypertrophy is observed. Global left ventricular wall motion and contractility are within normal limits. Left ventricular systolic function is at the lower limits of normal. The estimated ejection fraction is 50-55%. Ventricular septal wall motion has a post-operative appearance. There is abnormal ventricular septal wall motion consistent with right ventricular pacemaker. The assessment of diastolic function is non-diagnostic. Left Atrium: The left atrium is slightly dilated. Right Ventricle: The right ventricular cavity size is normal. The right ventricular global systolic function is normal. A pacemaker wire is visualized in the right ventricle. Right Atrium: The right atrial cavity size is normal. A pacemaker wire is visualized in the right atrium. The bubble study is negative. A patent foramen ovale is not demonstrated by agitated contrast. Aortic Valve: The aortic valve structure is not well visualized. There is mild thickening of the right coronary cusp. There is trace to mild aortic regurgitation. There is mild aortic stenosis. The mean gradient of the aortic valve is 6 mmHg. The aortic valve area, by VTI's, is calculated at 1.9 cm2. Mitral Valve: The mitral valve leaflets are mildly thickened. There is no evidence of mitral regurgitation. The mean gradient across the mitral valve is 5 mmHg. The mitral valve area, by pressure half time, is calculated at 2.2 cm2. MVA by continuity equation is 1.1 cm2. A bioprosthetic mitral valve is present. stented valve, leaflets appear thickend with good excursion. Tricuspid Valve: The tricuspid valve leaflets are normal. There is mild to moderate tricuspid regurgitation. No pulmonary hypertension is noted. There is no tricuspid stenosis. Pulmonic Valve: The pulmonic valve structure is not well visualized. There is no evidence of pulmonic regurgitation. There is no pulmonic stenosis. Pericardium: There is no significant pericardial effusion. A pericardial fat pad is visualized. Aorta: There is no dilatation of the ascending aorta. The aortic arch is not well visualized. There is no dilation of the aortic root. Pulmonary Artery: The main pulmonary artery is not well visualized. Venous: The inferior vena cava appears normal in size. There is a greater than 50% respiratory change in the inferior vena cava dimension. Contrast: Normal saline was used as contrast for the bubble study. Images 109 and 110. A total of 2 ml of diluted Definity was given IV to enhance imaging. Conclusions Mild to moderate concentric left ventricular hypertrophy is observed. Global left ventricular wall motion and contractility are within normal limits. The estimated ejection fraction is 50-55%. The right ventricular global systolic function is normal. The bubble study is negative, no evidence of cardiopulmonary shunting. There is mild thickening of the right coronary cusp. There is trace to mild aortic regurgitation. There is mild aortic stenosis: the mean gradient of the aortic valve is 6 mmHg, the aortic valve area, by VTI's, is calculated at 1.9 cm2. A bioprosthetic mitral valve is present. stented valve, leaflets appear thickend with good excursion. The mean gradient across the mitral valve is 5 mmHg. The mitral valve area, by pressure half time, is calculated at 2.2 cm2. MVA by continuity equation is 1.1 cm2. Exact type and size of valve not known limiting estimate of expected vs measured gradients and valve area, but no evidence of severe stenosis. There is mild to moderate tricuspid regurgitation. Compared with prior echo of 12/21/13, EF has improved, AI is stable, bioprosthetic leaflets appear thicker. PA pressure previously 47 mmHg. Prior echo done with HR 130 bpm. Measurements Name Value Normal Range RVIDd (AP) 2D 2.8 cm (0.9 - 2.6) RVIDd (2D) index 1.55 cm/m2 - RVDdMajor (2D) 3.5 cm (2.2 - 4.4) RAd ISD 4CH 4.8 cm (3.4 - 4.9) RA (A4C)W 3.7 cm (2.9 - 4.6) IVSd (2D) 1.4 cm (0.6 - 1) LVPWd (2D) 1.1 cm (0.6 - 1) IVS:LVPW ratio (2D) 1.27 ratio - LVIDd (2D) 4.4 cm (3.6 - 5.4) LVIDs (2D) 3.2 cm - LVIDd (2D) index 2.43 cm/m2 - LVIDs (2D) index 1.77 cm/m2 - LV FS (2D) 27 % (25 - 45) EF Teichholz (2D) 53 % - Aortic Annulus 1.8 cm (1.4 - 2.6) Ao root diameter (2D) 2.8 cm (2.1 - 3.5) Ascending Ao 3.2 cm (2.1 - 3.4) LA dimension (AP) 2D 4.5 cm (2.3 - 3.8) LA:Ao ratio (2D) 1.61 ratio - LAd ISD 4CH 4.8 cm (2.9 - 5.3) LA ISD 4CH W 3.8 cm (2.5 - 4.5) Aortic root diameter (2D1.55 cm/m2 - LA dimension (2D) index 2.49 cm/m2 - Name Value Normal Range LA ESV BP (A/L) index 27.2 ml/m2 - LV mass (2D) 203.05 g - LV mass (2D) index 112.18 g/m2 - Name Value Normal Range MV E-wave Vmax 1.6 m/sec - MV deceleration time 327 msec - MV A-wave Vmax 1.1 m/sec - MV E:A ratio 1.45 ratio - LV septal e' Vmax 0.05 m/sec - LV lateral e' Vmax 0.08 m/sec - LV average e' Vmax 0.06 m/sec - LV E:e' septal ratio 32 ratio - LV E:e' lateral ratio 20 ratio - LV average E:e' ratio 26.67 ratio - Name Value Normal Range AV Vmax 1.6 m/sec - AV VTI 31.4 cm - AV peak gradient 10 mmHg - AV mean gradient 6 mmHg - LVOT diameter 1.9 cm - LVOT Vmax 0.96 m/sec - LVOT VTI 20.5 cm - LVOT peak gradient 4 mmHg - LVOT mean gradient 2 mmHg - DOI (VTI) 0.65 ratio - DOI (Vmax) 0.6 ratio - STEPHANIA (continuity Vmax) 1.7 cm2 - STEPHANIA (continuity VTI) 1.9 cm2 - Name Value Normal Range MV Vmax 2 m/sec - MV VTI 55.1 cm - MV peak gradient 15 mmHg - MV mean gradient 5 mmHg - MV PHT 100 msec - MVA (PHT) 2.2 cm2 - MVA (continuity VTI) 1.1 cm2 - Name Value Normal Range TR Vmax 2.6 m/sec - TR peak gradient 27 mmHg - RAP 3 mmHg - RVSP 30 mmHg - IVC diameter 1.6 cm - Name Value Normal Range PV Vmax 0.81 m/sec -
[2018-06-17] MEDS ORDERED: Rivaroxaban TAB(*) 20 MG TAB PO SCH (18:00)
[2018-06-18] MEDS: Levothyroxine TAB* 25 MCG TAB PO SCH (05:31)
[2018-06-18 06:30] LABS: ABS Basophils 0 10^3/ul (0-0.2); ABS Eosinophils 0.2 10^3/ul (0-0.6); ABS Lymphocytes 2.9 10^3/ul (1.0-4.8); ABS Monocytes 0.9 10^3/ul (0-0.8); ABS Neutrophils 5.1 10^3/ul (1.5-7.7); ABS Nucleated RBC 0 10^3/ul; Eosinophil % 1.7 % (0-6); Hematocrit 27 % (35-47); Lymphocyte % 31.7 % (25-47); Mean Corpuscular HGB Conc 33 g/dl (31-36); Mean Corpuscular Hemoglobin 28 pg (27-31); Mean Corpuscular Volume 85 fL (80-97); Mean Platelet Volume 7.5 um3 (7.4-10.4); Nucleated Red Blood Cells % 0.1; Platelet Count 239 10^3/ul (150-450); Red Blood Count 3.23 10^6/ul (4.00-5.40); Red Cell Distribution Width 16 % (10.5-15); White Blood Count 9.1 10^3/ul (3.5-10.8)
[2018-06-18 06:46] LABS: EGFR Non-African American 52.7 (>60)
[2018-06-18] MEDS: CMC:Pantoprazole TAB (NF) 40 MG TAB PO SCH (07:29)
[2018-06-18] MEDS ORDERED: Aspirin 81 mg CHEW TAB* 81 MG TAB.CHEW PO SCH (09:00)
[2018-06-18] MEDS: Insulin LISPRO* 1 UNITS UNIT SUBCUT SCH ×2 (09:36→12:27)
[2018-06-18] MEDS: Metoprolol Succinate XL TAB* 100 MG PO SCH (09:37)
[2018-06-18] MEDS: Spironolactone TAB* 25 MG PO SCH (09:38)
[2018-06-18] MEDS: glipiZIDE TAB* 5 MG PO SCH (09:38)
[2018-06-18] MEDS: Dofetilide CAP* 125 MCG PO SCH (09:38)
[2018-06-18] MEDS: Lisinopril TAB* 5 MG PO SCH (09:38)
[2018-06-18] MEDS: Atorvastatin* 80 MG TAB PO SCH (09:38)
[2018-06-18] MEDS: CMC:SitaGLIPtin (NF) 100 MG TAB PO SCH (09:39)
[2018-06-18] MEDS: Losartan TAB* 25 MG PO SCH (09:39)
[2018-06-18] MEDS: MOMETASONE BOTH NARES SCH (09:40)
[2018-06-18] MEDS: BALSALAZIDE 750 MG PO SCH (09:40)
--- NOTE | 2018-06-18 10:48 | PN ---
Subjective Date of Service: 06/18/18 Length of Stay: 2 Days Neurology is following Sonal for the evaluation and management of suspected TIA. Interval History: She feels like her gait has improved but still feels off balance at times. She denied any visual disturbance. She denied any headaches, focal weakness, or paresthesias. Her daughter has a walker in which the patient will be using. Her son informed me today that when he picked the patient up to take her to the hospital, her blood glucose was over 500. The patient also informed me that her blood glucose runs extremely high in the 200-300 most of the time. Review of Systems: Denied CP, SOB, or palpitations. Family History: Findings - Mother had DM, father had atrial fib. Social History: Findings - No alcohol or tobacco use. . Son Simon Anderson is her SDM. Past Medical History: Findings - Mitral valve bioprosthesis 2011. Coronary stenting 2014. Ablation. Tonsillectomy, breast sx, hysterectomy, LBBB, ischemic cardiomyopathy, Objective Active Medications: Acetaminophen (Tylenol Tab*) 650 mg PO Q4H PRN PRN Reason: FEVER/PAIN Last Admin: 06/16/18 21:05 Dose: 650 mg Albuterol (Ventolin Hfa Inhaler*) 2 puff INH Q4H PRN PRN Reason: SHORTNESS OF BREATH Aspirin (Aspirin 81 Mg Chew Tab*) 81 mg PO DAILY [facility] Last Admin: 06/18/18 09:38 Dose: 81 mg Atorvastatin Calcium (Lipitor*) 80 mg PO DAILY [facility] Last Admin: 06/18/18 09:38 Dose: 80 mg Balsalazide (Balsalazide (Nf)) 1,500 mg PO BID [facility] Last Admin: 06/18/18 09:40 Dose: 1,500 mg Dextrose (D50w Syringe 50 Ml*) 12.5 gm IV PUSH .FOR FS < 60 - SS PRN PRN Reason: FS < 60 Dofetilide (Tikosyn Cap*) 125 mcg PO BID [facility] Last Admin: 06/18/18 09:38 Dose: 125 mcg Glipizide (Glucotrol Tab*) 5 mg PO BID [facility] Last Admin: 06/18/18 09:38 Dose: 5 mg Insulin Human Lispro (Humalog*) 0 units SUBCUT ACHS [facility]; Protocol Last Admin: 06/18/18 09:36 Dose: 1 units Levothyroxine Sodium (Synthroid Tab*) 12.5 mcg PO DAILY@0600 [facility] Last Admin: 06/18/18 05:31 Dose: 12.5 mcg Lisinopril (Prinivil Tab*) 5 mg PO DAILY [facility] Last Admin: 06/18/18 09:38 Dose: 5 mg Losartan Potassium (Cozaar Tab*) 25 mg PO DAILY [facility] Last Admin: 06/18/18 09:39 Dose: 25 mg Metoprolol Succinate (Toprol Xl Tab*) 100 mg PO DAILY [facility] Last Admin: 06/18/18 09:37 Dose: 100 mg Mometasone Furoate (Nasonex (Nf)) 1 spray BOTH NARES DAILY [facility] Last Admin: 06/18/18 09:40 Dose: 1 spray Pantoprazole Sodium (Protonix Tab (Nf)) 40 mg PO DAILY@0730 [facility]; Protocol Last Admin: 06/18/18 07:29 Dose: 40 mg Rivaroxaban (Xarelto(*)) 20 mg PO QPM [facility] Last Admin: 06/17/18 17:21 Dose: 20 mg Sitagliptin Phosphate (Januvia (Nf)) 100 mg PO DAILY [facility]; Protocol Last Admin: 06/18/18 09:39 Dose: 100 mg Spironolactone (Aldactone Tab*) 25 mg PO DAILY [facility] Last Admin: 06/18/18 09:38 Dose: 25 mg Vital Signs 06/17/18 06/17/18 06/17/18 11:27 11:38 15:40 Temperature 97.6 F 97.9 F Pulse Rate 71 74 Respiratory 16 16 20 Rate Blood Pressure 130/57 114/50 (mmHg) O2 Sat by Pulse 98 99 Oximetry 06/17/18 06/17/18 06/17/18 19:17 20:00 23:56 Temperature 98.1 F 99.0 F Pulse Rate 82 79 Respiratory 20 20 20 Rate Blood Pressure 129/47 127/57 (mmHg) O2 Sat by Pulse 97 95 Oximetry 06/18/18 06/18/18 06/18/18 03:53 07:11 07:30 Temperature 98.6 F 98.3 F Pulse Rate 80 85 Respiratory 18 20 20 Rate Blood Pressure 114/52 113/61 (mmHg) O2 Sat by Pulse 96 95 Oximetry Intake and Output Last 24 Hours 06/16/18 06/17/18 06/18/18/05/18 06:59 06:59 06:59 06:59 Intake Total 480 2644 280 Output Total 0 Balance 480 2644 280 Weight 165 lb 4.8 oz Intake: IV Fluids 846 IVPB 108 Oral 480 1690 280 Output: Urine 0 Other: Estimated Void Medium Medium # Bowel Movements 0 0 # Voids 1 2 Oxygen Devices in Use Now: None Neurology Exam: General: Well nourished female in no acute distress. HEENT: Normocephelic/atraumatic, sclera anicteric, mucous membranes moist Neck: Supple Chest: Clear to auscultation bilaterally Cardiovascular: Regular rate and rhythm without murmurs, rubs, gallops Extremities: No clubbing, cyanosis, or edema Neurological Findings: Awake, alert and oriented to person, place, time, and situation. Cranial Nerve: PERRL, EOM-I, mild left facial asymmetry. Motor: s/s throughout, proximal and distal extremities x4 tone/bulk normal Sensation: distal to proximal sensory gradient to light-touch and pinprick demarcated at the mid dan region bilaterally. Deep Tendon Reflex: 1+ in upper extremities, 1+ on the right knee, 2+ left knee , and 0 at the ankles Finger to nose, rapid alternating movements intact without tremor Gait: wide based gait. She crosses right over left and vice versa when ambulating. Result Diagrams: 06/18/18 06:02 06/18/18 06:02 Microbiology and Other Data: TTE Diagnostic Imaging: CT head without contrast: personally reviewed again today. She has multiple small lacunar infarction. She has right frontal, basal ganglia and left frontal ischemic lacunar infarctions that are old. Repeat CT head without contrast within 24 hours on 06/17/2018: no acute intracranial abnormalities. TTE completed on 06/17/2018: bubble study is negative. EF 50-55%. Mild-moderate LVH. Assessment/Plan Assessment/Plan Mrs. Anderson is an 83-year-old female with history of DMII x 30 years, atrial fibrillation on Xarelto and s/p pacemaker/ICD, CAD on Plavix, who presented with sudden onset gait imbalance and fall. She was initially ataxic towards the left. She has a left facial droop. She was not a candidate for IV tPA due to being on Xarelto and was outside the window when evaluated by me. She had a STAT CTA head and neck on 06/16/2018 that showed no evidence of large vessel occlusion and chronic calcification in the vertebral arteries. The patient's ataxia resolved within <24 hours. Therefore, the diagnosis here is: 1. Suspect TIA to the left cerebellar hemisphere- It is unclear if this is a thrombotic or embolic phenomenon. It may have been an [id number] emboli from proximal vertebral disease on the left. Other differential diagnosis include symptomatic hyperglycemia as she had a blood glucose of >500 when evaluated by EMS. - We agreed to switch Plavix to aspirin 81 mg daily to reduce her risk of hemorrhage and since she may have failed Plavix. Dr. Ortiz discussed this change with her sales warehouse driver and he agreed to do the clopidogrel resistant testing as an outpatient. - She is on Xarelto for atrial fibrillation. - Secondary stroke prevention were discussed with the patient as she has had silent strokes in the past. - Pt was told to never have an MRI due to her pacemaker, thus an MRI brain was never done during this admission. - She is ready for discharge with PT services. 2. Hx of falls- multifactorial. The patient has evidence of polyneuropathy most likely related to diabetes and has history of lacunar strokes. 3. Diabetic polyneuropathy- B12 and TSH are normal 4. Hx of lacunar strokes- will currently be on aspirin. Discontinue Plavix as the patient may have a less response to Plavix compare to aspirin. Keep SBP within normal range. Clopidogrel resistant genetic testing to be done as outpatient. 5. Hx of atrial fibrillation- on Xarelto. She's in sinus rhythm Time Spent: 35 minutes was spent discussing the treatment plan with the patient and her son who was at bedside. Neurology will sign off. She will follow-up with Dr. Baugh in 4 weeks.
--- NOTE | 2018-06-18 10:52 | PN ---
Subjective Date of Service: 06/18/18 Interval History: Pt resting comfortably in chair. Just took a walk around the floor and reports steady gait as long as she does not go too fast. Endorses mild shortness of breath as had not had home asmanex. Denies chest pain or palpitations. Denies N/ V/D. Denies dizziness, headache, or focal abnormalities. Family History: Findings - Mother had DM, father had atrial fib. Social History: Findings - No alcohol or tobacco use. . Son Simon Anderson is her SDM. Past Medical History: Findings - Mitral valve bioprosthesis 2011. Coronary stenting 2014. Ablation. Tonsillectomy, breast sx, hysterectomy, LBBB, ischemic cardiomyopathy, Objective Active Medications: Acetaminophen (Tylenol Tab*) 650 mg PO Q4H PRN PRN Reason: FEVER/PAIN Last Admin: 06/16/18 21:05 Dose: 650 mg Albuterol (Ventolin Hfa Inhaler*) 2 puff INH Q4H PRN PRN Reason: SHORTNESS OF BREATH Aspirin (Aspirin 81 Mg Chew Tab*) 81 mg PO DAILY [facility] Last Admin: 06/18/18 09:38 Dose: 81 mg Atorvastatin Calcium (Lipitor*) 80 mg PO DAILY [facility] Last Admin: 06/18/18 09:38 Dose: 80 mg Balsalazide (Balsalazide (Nf)) 1,500 mg PO BID [facility] Last Admin: 06/18/18 09:40 Dose: 1,500 mg Dextrose (D50w Syringe 50 Ml*) 12.5 gm IV PUSH .FOR FS < 60 - SS PRN PRN Reason: FS < 60 Dofetilide (Tikosyn Cap*) 125 mcg PO BID [facility] Last Admin: 06/18/18 09:38 Dose: 125 mcg Glipizide (Glucotrol Tab*) 5 mg PO BID [facility] Last Admin: 06/18/18 09:38 Dose: 5 mg Insulin Human Lispro (Humalog*) 0 units SUBCUT [facility]; Protocol Last Admin: 06/18/18 09:36 Dose: 1 units Levothyroxine Sodium (Synthroid Tab*) 12.5 mcg PO DAILY@0600 [facility] Last Admin: 06/18/18 05:31 Dose: 12.5 mcg Lisinopril (Prinivil Tab*) 5 mg PO DAILY [facility] Last Admin: 06/18/18 09:38 Dose: 5 mg Losartan Potassium (Cozaar Tab*) 25 mg PO DAILY [facility] Last Admin: 06/18/18 09:39 Dose: 25 mg Metoprolol Succinate (Toprol Xl Tab*) 100 mg PO DAILY [facility] Last Admin: 06/18/18 09:37 Dose: 100 mg Mometasone Furoate (Nasonex (Nf)) 1 spray BOTH NARES DAILY [facility] Last Admin: 06/18/18 09:40 Dose: 1 spray Pantoprazole Sodium (Protonix Tab (Nf)) 40 mg PO DAILY@0730 [facility]; Protocol Last Admin: 06/18/18 07:29 Dose: 40 mg Rivaroxaban (Xarelto(*)) 20 mg PO QPM [facility] Last Admin: 06/17/18 17:21 Dose: 20 mg Sitagliptin Phosphate (Januvia (Nf)) 100 mg PO DAILY [facility]; Protocol Last Admin: 06/18/18 09:39 Dose: 100 mg Spironolactone (Aldactone Tab*) 25 mg PO DAILY [facility] Last Admin: 06/18/18 09:38 Dose: 25 mg Vital Signs - 8 hr 06/18/18 06/18/18 06/18/18 03:53 07:11 07:30 Temperature 98.6 F 98.3 F Pulse Rate 80 85 Respiratory 18 20 20 Rate Blood Pressure 114/52 113/61 (mmHg) O2 Sat by Pulse 96 95 Oximetry Oxygen Devices in Use Now: None Eyes: No Scleral Icterus, PERRLA Ears/Nose/Mouth/Throat: NL Teeth, Lips, Gums, Clear Oropharnyx, Mucous Membranes Moist Neck: NL Appearance and Movements; NL JVP, Trachea Midline Respiratory: Symmetrical Chest Expansion and Respiratory Effort, Clear to Auscultation Cardiovascular: NL Sounds; No Murmurs; No JVD, RRR, No Edema Abdominal: NL Sounds; No Tenderness; No Distention Extremities: No Edema, No Clubbing, Cyanosis Skin: No Rash or Ulcers Neurological: Alert and Oriented x 3, NL Sensation, NL Muscle Strength and Tone , - - No facial droop appreciated Result Diagrams: 06/18/18 06:02 06/18/18 06:02 Diagnostic Imaging: CT head without contrast: personally reviewed again today. She has multiple small lacunar infarction. She has right frontal, basal ganglia and left frontal ischemic lacunar infarctions that are old. Assess/Plan/Problems-Billing Mrs. Anderson is an 83-year-old female with history of DMII x 30 years (on oral medication), Afib on Xarelto and s/p pacemaker/ICD, CAD on Plavix, hx mitral valve replacement, hypothyroidism, Ulcerative collitis who presented with sudden onset gait imbalance and fall. Upon arrival in the ED, she was ataxic towards the left and had a left facial droop. Head CT did not show any acute abnormalities.She was not a candidate for IV tPA as she was outside the window. Admitted for CVA vs TIA. - Patient Problems (1) TIA (transient ischemic attack) Current Visit: Yes Status: Acute Code(s): G45.9 - TRANSIENT CEREBRAL ISCHEMIC ATTACK, UNSPECIFIED SNOMED Code(s): 178113561 Comment: - per neurology, suspect TIA to left cerebellar hemisphere vs CVA - Pt's left facial droop and gait instability have mostly resolved. Modified Michelle score 1 - Initial head CT showed multiple small lacunar infarctions, as well as old right frontal, basal ganglia, and left frontal ischemic lacunar infarts. Repeast head CT 06/17 showed no acute intracranial abnormalities. Pt unable to have MRI as she has pacemaker. - CTA head/neck without evidence of significant carotid stenosis or large vessel intracranial thrombus. Moderate to severe calcific plaque within the intracranial segment of the vertebral arteries. - Echo with bubble study w/o evidence of PFO - Secondary stroke prevention: Continue lipitor 80mg daily (LDL <70). Pt switch from plavix to aspirin 81mg during her stay as pt may be poor plavix responder. Will follow up with cardiology as outpatient for further testing. Pt is also on xarelto for afib. - Per neurology, ready for discharge with outpatient PT services - Pt will follow up with Dr. Baugh as outpatient in 4 weeks (2) Atrial fibrillation Current Visit: Yes Status: Acute Code(s): I48.91 - UNSPECIFIED ATRIAL FIBRILLATION SNOMED Code(s): 41157321 Comment: - Currently in paced sinus rhythm with occasional PVCs. Did have episode of 7 beats of VT overnight, but pt asymptomatic. Electrolytes WNL. Follow up as outpatient - Continue rate control with metoprolol (Rate 70s-80s) - Continue rhythm control with dofetilide - Continue anticoagulation with xarelto. CHADS-VASC 9 (3) Chronic systolic (congestive) heart failure Current Visit: Yes Status: Acute Code(s): I50.22 - CHRONIC SYSTOLIC ( CONGESTIVE) HEART FAILURE SNOMED Code(s): 066064570 Comment: - Pt currently without signs of CHF exacerbation. Not rales, JVD, or lower extremity edema. - Echo from this admission showed EF 50-55% with mild-moderate LV hypertrophy, however has previously had severely reduced EF (20-25% in 2015) - Continue guideline directed management with lisinopril, losatran, metoprolol and spironolactone (4) Diabetes Current Visit: Yes Status: Acute Code(s): E11.9 - TYPE 2 DIABETES MELLITUS WITHOUT COMPLICATIONS SNOMED Code(s): 73998397 Comment: - Per EMS, pt's glucose was >500 when they brought pt in. Possibly could have contributed to pt's presenting symptoms - Glucose range as inpatient has fluctuated between 150-325 - Continue sliding scale lispto. Also continue home oral medications glipizide and januvia. Pt also takes metformin and dulaglutide at home, which are on hold. - Pt also has diabetic neuropathy, not currently on medication for this (5) Hypothyroid Current Visit: Yes Status: Acute Code(s): E03.9 - HYPOTHYROIDISM, UNSPECIFIED SNOMED Code(s): 99346089 Comment: TSH 4.2. Continue levothyroxine. (6) Ulcerative colitis Current Visit: Yes Status: Acute Code(s): K51.90 - ULCERATIVE COLITIS, UNSPECIFIED, WITHOUT COMPLICATIONS SNOMED Code(s): 41346198 Comment: Not in exacerbation- Denies N/V/D/Abdominal pain. Cont Balsalazide. (7) DVT prophylaxis Current Visit: Yes Status: Acute Code(s): XMY5846 - SNOMED Code(s): 189656697 Comment: - Pt anticoagulated with Xarelto for Afib (8) Full code status Current Visit: Yes Status: Acute Code(s): Z78.9 - OTHER SPECIFIED HEALTH STATUS SNOMED Code(s): 336740633 Status and Disposition: Discharge to home Attending: Haley Hill
[2018-06-18 12:14] VITALS: BP 129/46
--- NOTE | 2018-06-19 03:29 | DS ---
CC: Vanessa Gómez MD * DISCHARGE SUMMARY: DATE OF ADMISSION: 06/16/18 DATE OF DISCHARGE: 06/18/18 ATTENDING PHYSICIAN: Haley Hill DO * (dictated by Deepali Mcmanus NP). PRIMARY CARE PROVIDER: Vanessa Gómez MD PRIMARY DIAGNOSIS: Transient ischemic attack. SECONDARY DIAGNOSES: 1. Atrial fibrillation. 2. Congestive heart failure. 3. Diabetes. 4. Hypothyroidism. 5. Ulcerative colitis. DISCHARGE MEDICATIONS: 1. Balsalazide disodium 1500 mg p.o. b.i.d. 2. Calcium carbonate/vitamin D3 1 tab p.o. daily. 3. Trulicity 0.75 mg subcutaneous weekly. 4. Glipizide 5 mg p.o. b.i.d. 5. Losartan 25 mg p.o. daily. 6. Lipitor 80 mg p.o. daily. 7. Lisinopril 5 mg p.o. daily. 8. Dofetilide 125 mcg p.o. b.i.d. 9. Januvia 100 mg p.o. daily. 10. Albuterol 2 puffs INH q.4 h. p.r.n. 11. Prevacid 30 mg p.o. daily. 12. Synthroid 25 mcg tablet, 12.5 mcg p.o. daily. 13. Metoprolol succinate XL tab 100 mg p.o. daily. 14. Nasonex 1 spray both nares daily. 15. Multivitamin/minerals 1 tab p.o. daily. 16. Spironolactone 25 mg p.o. daily. 17. Xarelto 20 mg p.o. daily. 18. Metformin 1 tablet p.o. b.i.d. 19. Aspirin 81 mg 1 tablet p.o. daily. HOSPITAL COURSE: The patient is an 83-year-old female with a history of DM type 2 on oral glucose control medications, atrial fibrillation on Xarelto, status post pacemaker/ICD, CAD on Plavix, CHF, history of mitral valve replacement, hypothyroidism, and ulcerative colitis who presented with sudden onset gait imbalance and fall. Upon arrival in the ED, she was ataxic towards the left and had a left facial droop. Head CT showed multiple small lacunar infarcts as well as old right frontal basal ganglia and left frontal ischemic lacunar infarcts, but did not show any acute bleeding. She was not a candidate for any IV-tPA as she was outside the window. She was admitted to the hospitalist service for CPA versus TIA. Additional workup included CTA head and neck without evidence of significant carotid stenosis or large vessel intracranial thrombus. [id number] calcific plaque within the intracranial segment of the vertebral artery was appreciated. The patient unable to have an MRI as she has a pacemaker. Echo with bubble study was done and did not show any evidence of a PFO. Neurology was consulted and recommended switch from Plavix, which she was already on to aspirin, as suspect the patient could be a poor Plavix responder given she experienced the TIA while receiving treatment with Plavix. She will receive followup Plavix resistance testing with Cardiology. Additional secondary stroke prevention with Lipitor 80 mg daily. The patient states left facial droop pain and gait instability have largely resolved. The patient reports gait is near her baseline. The patient had a modified Michelle Scale of 1. Recommend outpatient PT and followup with Dr. Baugh in 4 weeks. Of note, the patient had 1 episode of 7 beats of VT overnight with heart rate in the low 100s. The patient was asymptomatic, electrolytes were within normal limits. Echo showed EF of 50% to 55% and normal LV wall motion. Recommend followup with outpatient refractory furnace designer. The patient is stable for discharge to home today. DISPOSITION: Discharge to home. DIET: Heart healthy diet recommended. ACTIVITY: As tolerated. FOLLOWUP: Please follow up with primary care provider, Dr. Gómez. An appointment has been made for 06/22/18 at 3:40 p.m. Also, please follow up with outpatient refractory furnace designer. TIME SPENT: Time for this discharge was 35 minutes and half the time was spent [id number] with the patient, discussing discharge plans and instructions. DEEPALI MCMANUS, ELVIE [id number]/[facility] #: [id number] AMNIA
== END 2018-06-18 15:54 | disposition home or self-care (01) | DRG 69 ==
LOC: ED 13:49 → MEDTELE 16:41 → OBSVTOIN 06-17 15:35
PROVIDERS: ADMIT Internal Medicine; ATTEND Hospitalist
DX: G45.9 Transient cerebral ischemic attack, unspecified (principal); K51.90 Ulcerative colitis, unspecified, without complications; N39.0 Urinary tract infection, site not specified; I50.22 Chronic systolic (congestive) heart failure; I47.2 Ventricular tachycardia; I49.3 Ventricular premature depolarization; E03.9 Hypothyroidism, unspecified; I25.10 Atherosclerotic heart disease of native coronary artery without angina pectoris; I11.0 Hypertensive heart disease with heart failure; J45.909 Unspecified asthma, uncomplicated; G47.30 Sleep apnea, unspecified; E11.39 Type 2 diabetes mellitus with other diabetic ophthalmic complication; H42 Glaucoma in diseases classified elsewhere; R40.2362 Coma scale, best motor response, obeys commands, at arrival to emergency department; R40.2142 Coma scale, eyes open, spontaneous, at arrival to emergency department; R40.2252 Coma scale, best verbal response, oriented, at arrival to emergency department; M19.042 Primary osteoarthritis, left hand; M19.041 Primary osteoarthritis, right hand; M19.022 Primary osteoarthritis, left elbow; I48.2 Chronic atrial fibrillation; I16.0 Hypertensive urgency; E11.42 Type 2 diabetes mellitus with diabetic polyneuropathy; R29.702 NIHSS score 2; E11.65 Type 2 diabetes mellitus with hyperglycemia; I44.7 Left bundle-branch block, unspecified; I25.5 Ischemic cardiomyopathy; E78.5 Hyperlipidemia, unspecified; M19.021 Primary osteoarthritis, right elbow; M17.2 Bilateral post-traumatic osteoarthritis of knee; M47.9 Spondylosis, unspecified; Z87.01 Personal history of pneumonia (recurrent); Z82.49 Family history of ischemic heart disease and other diseases of the circulatory system; Z90.710 Acquired absence of both cervix and uterus; Z95.2 Presence of prosthetic heart valve; Z88.8 Allergy status to other drugs, medicaments and biological substances; Z83.3 Family history of diabetes mellitus; Z95.5 Presence of coronary angioplasty implant and graft; Z79.84 Long term (current) use of oral hypoglycemic drugs; Z79.01 Long term (current) use of anticoagulants; Z79.82 Long term (current) use of aspirin
CPT/HCPCS: 36415; 70450; 70496; 70498; 80048; 80053; 80061; 81003; 82607; 83036; 83735; 84443; 84484; 85025; 85610; 93005; 93306; 99284; A9270-GY; C8929; G0378; G8978-GP-CH; G8978-GP-CJ; G8979-GP-CH; G8980-GP-CH; G8987-GO-CH; G8988-GO-CH; G8989-GO-CH; J3475; Q9967

== ENCOUNTER 2018-09-25 14:18 | Inpatient (IN) | payer MEDICARE, BC ==
[2018-09-25] MEDS ORDERED: NS 0.9% 1000 ML* 1,000 ML IV ONE (14:26)
--- OUTSIDE RECORDS SUMMARY | 2018-09-25 14:36 | XMS REPORT | Continuity of Care Document ---
:1935 External Reference #:[id number] Author Name Asad Donald M.D. Address [address] [place] [address] Care Team Providers Name Role Phone Vanessa Gómez MD Primary Care Physician Unavailable Payers Type Date Identification Numbers Payment Provider Subscriber Effective: Policy Number: [id number] Medicare - [facility] Sonal Anderson 2000 PayID: [id number] [facility] [place] [address] Policy Number: [id number] [facility] Sonal Anderson PayID: [id number] [address] [address] [place] [address] Advance Directives Description No Information Available Problems Date Description Provider Status Onset: Atrial fibrillation Active Onset: Essential hypertension Active Onset: Arthritis Active Onset: Gastroesophageal reflux disease Active Onset: Type 2 diabetes mellitus Active Onset: Cardiac pacemaker procedure Active Onset: 07/10/2015 Keratoconjunctivitis sicca, not Asad Donald M.D. Active specified as Sjogren's Onset: 07/10/2015 Presence of intraocular lens Asad Donald M.D. Active Onset: Ulcerative colitis Active Onset: 08/01/2016 Vitreous degeneration Asad Donald M.D. 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 ETOH Use Denies alcohol use Tobacco Use Start: Unknown Patient has never smoked Recreational Drug Use Denies Drug Use Smoking Status Reviewed: 09/22/18 Patient has never smoked Allergies, Adverse Reactions, Alerts Date Description Reaction Status Severity Comments 07/10/2015 Prednisone Active Medications Medication Date Status Form Strength Qnty SIG Indications Ordering Provider Colazal Active Capsules 750mg Unknown 000 Plavix Active Tablets 75mg 1 by Unknown 000 mouth every day @hs Metformin HCL Active Tablets 1000mg Unknown 000 Tikosyn Active Capsules 125mcg Unknown 000 Prevacid Active Capsules 30mg Unknown [address] Multivitamin Active Tablets Unknown Adult 000 Aldactone Active Tablets 25mg Unknown 000 Glyburide Active Tablets 5mg Unknown 000 Xarelto Active Tablets 20mg Unknown 000 Levothyroxine Active Tablets 25mcg Unknown Sodium 000 Calcium 500 + D3 Active Tablets 500-600mg- Unknown 000 Unit Ventolin HFA Active Aerosol 108(90Base Unknown 000 ) mcg/Act Asmanex Active Aerosol 110mcg/Inh Unknown Twisthaler 30 000 Metered Doses Lisinopril Active Tablets 5mg Unknown 000 Atorvastatin Active Tablets 80mg Unknown Calcium 000 Januvia Active Tablets 50mg Unknown 000 Carvedilol Active Tablets 25mg Unknown 000 Systane Active Solution 0.4-0.3% as Asad Donald M.D. Losartan Active Tablets 25mg Unknown Potassium 000 Immunizations Description No Information Available Vital Signs Date Vital Result Comment 08/13/2016 1:41pm BP Systolic 115 mmHg BP Diastolic 58 mmHg Heart Rate 70 /min Respiratory Rate 16 /min Results Description No Information Available Procedures Date Code Description Status 08/21/2017 87536 Scanning Computerized Opthalmic Diagnostic Posterior Seg Completed Retina 08/21/2017 12965 Determination Of Refractive State Completed 08/21/2017 18816 Est Patient Comprehensive Exam Completed 08/13/2016 46154 Remove Secondary Cataract, Laser (Yag) Completed 08/01/2016 97273 Scanning Computerized Opthalmic Diagnostic Posterior Seg Completed Retina 08/01/2016 12675 Est Patient Comprehensive Exam Completed 07/10/2015 93644 Est Patient Comprehensive Exam Completed 04/13/2014 44241 Cataract Surgery Complex Completed 04/06/2014 70705 Cataract Surgery Complex Completed 03/28/2014 24907 Scanning Computerized Opthalmic Diagnostic Posterior Seg Completed Retina 03/28/2014 71926 Ophthalmic Biometry Completed 03/28/2014 76322 Ophthalmic Biometry Completed 12/02/2013 44773 Ophthalmic Biometry Completed 12/02/2013 30912 Ophthalmic Biometry Completed 11/22/2013 68272 Scanning Computerized Opthalmic Diagnostic Posterior Seg Completed Retina 11/22/2013 61267 Est Patient Comprehensive Exam Completed 12/08/2012 55337 Est Patient Comprehensive Exam Completed 12/08/2012 524 C-Pap Goggles Completed 12/09/2011 65240 Est Patient Comprehensive Exam Completed 12/09/2011 07441 Scanning Computerized Opthalmic Diagnostic Posterior Seg Completed Retina 12/04/2010 84340 Fundus Photography With Interpretation And Report Completed 12/04/2010 99418 Determination Of Refractive State Completed 12/04/2010 36817 Est Patient Comprehensive Exam Completed 11/24/2009 89074 Scanning Laser W/Interp And Report Completed 11/24/2009 10138 Determination Of Refractive State Completed 11/24/2009 36021 Est Patient Comprehensive Exam Completed 11/30/2008 80273 Est Patient Comprehensive Exam Completed 11/30/2008 14409 Determination Of Refractive State Completed 11/30/2008 94083 Scanning Laser W/Interp And Report Completed 12/01/2007 73565 Determination Of Refractive State Completed 12/01/2007 55941 Est Patient Comprehensive Exam Completed 11/28/2006 13583 Determination Of Refractive State Completed 11/28/2006 20612 Est Patient Comprehensive Exam Completed 11/19/2005 36470 Determination Of Refractive State Completed 11/19/2005 51687 Est Patient Comprehensive Exam Completed 11/19/2004 22305 Determination Of Refractive State Completed 11/19/2004 91645 Est Patient Comprehensive Exam Completed Encounters Type Date Location Provider Dx Diagnosis Office Visit 03/28/2014 Aasd Simons, 366.16 Senile Nuclear 2:30p diana HUDSON M.D. Sclerosis / Cataract 250.50 Diabetes W/ Ophthalmic Manifestations Type II Controlled 362.01 Background Diabetic Retinopathy Office Visit 12/02/2013 12:00p Asad Simons 366.16 Senile Nuclear diana HUDSON M.D. Sclerosis / Cataract 366.16 Senile Nuclear Sclerosis / Cataract Plan of Treatment 09/22/2018 - Asad Donald M.D.E11.3293 Type 2 diabetes mellitus with mild nonproliferative diabetic retinopathy without macular edema, bilateralComments: Smoking can increase the risk of developing or worsening any eye related disease , as well as affect your overall health. If you are a smoker, we strongly recommend that you quit.If you are not a smoker, we strongly recommend that you do not start. I can detect diabetic changes in your eyes. Proper control of your diabetes is important for the health of your eyes. It is important that you keep all of your follow up appointments. Dr. Donald has sent a report to your primary care doctor, letting them know the current status of your retina.Follow up:1 Year Follow Up You can expect to have your eyes dilated at your next visit. If Dr. Donald orders any additional testing, it may require extra time. We recommend that you bring sunglasses, as dilationdrops often make you light sensitive until they wear off. We always recommend you bring someone to drive you home if you are uncomfortable driving with your eyes dilated. If you have any questions before your next visit, feel free to call our office at [phone].T14.4 Presence of intraocular lensComments:The artificial lens implants in both eyes appear to be stable at this time.H43.813 Vitreous degeneration, bilateralComments:You have a Posterior Vitreous Detachment. If you have any changes in your floaters or flashing lights, please contact this office.
--- OUTSIDE RECORDS SUMMARY | 2018-09-25 14:37 | XMS REPORT | Continuity of Care Document ---
:1935 External Reference #:[id number] Author Name Shanice Oviedoinda Care Team Providers Name Role Phone Vanessa Gómez MD Primary Care Physician Unavailable Payers Type Date Identification Numbers Payment Provider Subscriber Effective: Policy Number: [id number] Medicare Sonal Pearl 1998 PayID: [id number] [address] [place] [address] Effective: 2012 Policy Number: [id number] BS Jack Pearl Expires: 2013 PayID: [id number] [address] [address] [place] [address] Effective: 2010 Policy Number: [id number] BS Of NANDINI Pearl Expires: 2012 Group Number: [id number] [address] [address] PayID: [id number] [place] [address] Effective: 2013 Policy Number: [id number] BS Jack Pearl PayID: [id number] [address] [address] [place] [address] Advance Directives Description No Information Available Problems Date Description Provider Status Onset: 07/10/2011 Benign essential hypertension Maurice Brenner M.D. Active Onset: 11/18/2011 Rheumatic mitral regurgitation Maurice Brenner M.D. Active Onset: 11/18/2011 Atrial fibrillation Maruice Brenner M.D. Active Onset: 11/18/2011 Type 2 diabetes mellitus Maurice Brenner M.D. Active Onset: 01/15/2012 Preoperative cardiovascular Deepali Ponce D.O. Active examination Onset: 01/23/2012 Mitral valve disorder Mirtha Dumont, N.PShraddha Active Onset: 03/30/2012 Atrial flutter Mirtha Dumont N.P. Active Onset: 12/30/2013 Hypothyroidism Maurice Brenner M.D. Active Onset: 12/30/2013 Diabetes mellitus Maurice Brenner M.D. 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- Family History Date Family Member(s) Problem(s) Comments Siblings 3 Social History Type Date Description Comments Sex Unknown Marital Status Lives With Alone Occupation Retired Tobacco Use Start: Unknown Never Smoked Cigarettes Smoking Status Reviewed: 09/17/18 Never Smoked Cigarettes ETOH Use Rarely consumes wine Tobacco Use Start: Unknown Patient has never smoked Recreational Drug Use Denies Drug Use Exercise Type/Frequency Exercises regularly Allergies, Adverse Reactions, Alerts Date Description Reaction Status Severity Comments 12/16/2013 Prednisone anxiety Active at high doses 12/01/2008 NKDA Inactive Medications Medication Date Status Form Strength Qnty SIG Indications Ordering Provider Magnesium Oxide 02/23/ Active Capsules 400mg 90caps 1 by mouth Maurice 2014 every day Nona Brenner M.D. Tikosyn 12/30/ Active Capsules 125mcg 180cap 1 by mouth Maurice 2013 s twice a F. day Cornelius Brenner Levothyroxine 06/21/ Active Tablets 25mcg 30tabs 1/2 po qd Other Sodium 2013 Ordering Provider Calcium 06/21/ Active Tablets 60tabs 1 po qd Other 500/Vitamin D 2013 Ordering Provider Xarelto 06/05/ Active Tablets 20mg 90tabs 1 by mouth Maurice 2011 every day Nona Brenner M.D. Potassium 05/03/ Active Tablets ER 20Meq 30tabs 1 by mouth Maurice Chloride ER 2009 every day Nona Brenner M.D. Colazal 12/01/ Active Capsules 750mg 2 po bid 2008 ECHO Schedule Prevacid / Active Capsules 30mg 90caps 1 po qd Unknown [address] DR Multi Vitamin / Active Tablets 100tab 1 po qd Unknown 0000 s Glyburide / Active Tablets 5mg 1 tablet Unknown 0000 bid Aldactone / Active Tablets 25mg 45tabs 1/2 by Maurice 0000 mouth F. every day Cornelius Brenner Metamucil / Active prn Unknown 0000 Metformin HCL / Active Tablets 500mg 1 by mouth Unknown 0000 twice a day Ventolin HFA / Active Aerosol 108(90Base 2 puffs by Unknown 0000 ) mcg/Act mouth four times a day as needed Asmanex / Active Aerosol 220mcg/Inh inhale 1 Unknown Twisthaler 30 0000 puff once Me Tered Doses daily Losartan / Active Tablets 25mg 1 by mouth Unknown Potassium 0000 every day Carvedilol / Active Tablets 25mg 1 tab by Unknown 0000 mouth twice a day Trulicity / Active Solution 0.75mg/0.5 inject Unknown 0000 Pen-Inject ML 0.75mg once a week Lantus / Active Solution 100Unit/ML 15 units Unknown 0000 sq every in the morning Clopidogrel / Active Tablets 75mg 1 by mouth Unknown Bisulfate 0000 every day Metoprolol 03/17/ Hx Tablets ER 25mg 1/2 by Maurice Succinate ER 2013 - 24HR mouth . 04/22/ every Mauser, 2013 other day M.D. Metoprolol 12/30/ Hx Tablets 25mg 1 by mouth Other Tartrate 2013 - twice a Ordering 01/19/ day Provider 2013 Metoprolol 12/30/ Hx Tablets 25mg 60tabs 1/2 by Maurice Tartrate 2014 - mouth F. 01/20/ twice a Mauser, 2013 day M.D. Metoprolol 12/30/ Hx Tablets ER 25mg 45tabs 1/2 by Maurice Succinate ER 2013 - 24HR mouth . 03/17/ every day Elidia 2013 M.D. Simvastatin 06/21/ Hx Tablets 5mg 90tabs 1 po qd, Maurice 2012 - on hold at F. 12/30/ this time Elidia 2013 M.D. Amiodarone HCL 12/03/ Hx Tablets 200mg 90tabs 1 po qd Maurice 2012 - F. 02/18/ Elidia, 2012 M.D. Lipitor 10/29/ Hx Tablets 5mg. 30tabs 1 tab po Maurice 2012 - F. 02/18/ Elidia, 2012 M.D. Lipitor 10/15/ Hx Tablets 20mg one tab po Maurice 2012 - q hold F. 10/29/ as of use, 2012 1.31.13 M.D. Amiodarone HCL 09/01/ Hx Tablets 200mg 1/2 po qd Maurice 2011 - . user, 2012 M.D. Metoprolol 08/17/ Hx Tablets ER 25mg 60tabs 1/2 po qd. Maurice Succinate ER 2011 - 24HR F. user, 2011 M.D. Amiodarone HCL 08/14/ Hx Tablets 200mg 90tabs one po qd. Maurice 2011 - F. user, 2011 M.D. Xarelto 12/03/ Hx Tablets 20mg 90tabs 1 po qd Maurice 2011 - . user, 2011 M.D. Enoxaparin 11/17/ Hx Solution Unknown subq q12 h Maurice Sodium 2011 - F. user, 2011 M.D. Metoprolol 11/17/ Hx Tablets 25mg 180tab 1/2 po bid Maurice Tartrate 2011 - s F. user, 2011 M.D. Metoprolol 11/17/ Hx Tablets 25mg 45tabs 1 po qam Maurice Tartrate 2011 - and 1/2 po F. 08/17/ qpm user, 2011 M.D. Aspirin 05/03/ Hx Tablets DR 81mg 1 po qd Maurice 2009 - F. user, 2011 M.D. Metoprolol 05/03/ Hx Tablets 25mg 30tabs 1 po qd Maurice Tartrate 2009 - until . 12/04/ /09/07user, 2010 and then M.D. qod until 05/14 and then discontinu e. Lipitor 01/08/ Hx Tablets 20mg 90tabs one tab po Maurice 2009 - qhs . user, 2012 M.D. Lipitor 06/12/ Hx Tablets 10mg 45tabs 1/2 po qhs Maurice 2008 - F. 01/08/ Mauser, 2009 M.D. Verapamil HCL 03/07/ Hx Tablets ER 180mg 1/2 po qd Maurice CR 2008 - F. 03/13/ Agauser, 2008 M.Yong. Covera-hs 02/09/ Hx Tablets ER 180mg 90tabs 1 po qd Maurice 2008 - 24HR F. 02/09/ Agauseeleno, 2008 M.D. Verapamil HCL 02/09/ Hx Tablets ER 180mg 90tabs 1 po qd Maurice CR 2008 - F. 03/07/ Mauseeleno, 2008 MKavita. Cartizem 01/17/ Hx Caps ER 120mg 90caps 1 po qd Maurice 2008 - 24HR F. 02/09/ Agauseeleno, 2008 M.D. Lipitor 01/12/ Hx Tablets 20mg 30tabs one tab po Maurice 2008 - qhs . 06/12/ Elidia, 2008 M.D. Metoprolol 01/04/ Hx Tablets 50mg 60tabs 1/2 po qd Maurice Tartrate 2008 - x 1 week F. d/c Elidia, 200801/24/09 M.DShraddha Aspirin 12/05/ Hx Tablets 325mg 1 po qd Maurice 2008 - F. Elidia, 2009 M.D. Metoprolol 12/05/ Hx Tablets 25mg 180tab 1 po bid Maurice Tartrate 2008 - s . 12/13/ Elidia, 2008 Cornelius Calcium-Vitamin 12/01/ Hx Tablets 600mg 2 daily [place] D 2008 - ECHO 06/21/ Schedule 2013 Warfarin Sodium 12/01/ Hx Tablets 7.5mg 30tabs as [place] 2008 - directed ECHO 12/05/ Schedule 2008 Cardizem CD 12/01/ Hx Caps ER 120mg 30caps 1 po qd Qutaybeh 2008 - 24HR S. 12/05/ Gagan 2009 Cornelius Folic Acid / Hx Tablets 1mg 60tabs 1 po qd Unknown - 2009 Zantac / Hx Tablets 300mg 90tabs 1 po qd Unknown 0000 - prn 2011 Vit. E / Hx 400U 1 po qd Unknown - 2008 Multi-Day /00/ Hx Tablets 1 po qd Unknown Vitamins - 2008 Lopressor / Hx Tablets 50mg 1 po bid Unknown - 2008 Metoprolol / Hx Tablets 50mg 60tabs 1 po bid Unknown Tartrate 0000 - 2008 Toprol / Hx Dose one po bid Unknown 0000 - Unknown 2009 Buspar / Hx Tablets 5mg 30tabs 1 po qd Unknown 0000 - prn 2018 Benefiber / Hx Powder 90unit as ordered Unknown 0000 - s 2013 Onglyza / Hx Tablets 5mg 30tabs once daily Unknown 0000 - 2014 Cordarone / Hx Tablets 200mg 1 po bid Unknown 0000 - then 1 06/05/ tablet x 2 2011 weeks then D/C Altace / Hx Capsules 5mg 90caps 1 po qd Maurice 0000 - F. 12/30/ Elidia, 2013 M.Shyanne Immunizations Description No Information Available Vital Signs Date Vital Result Comment 09/17/2018 8:39am Height 65.5 inches 5'5.50" Weight 165.12 lb Heart Rate 78 /min BP Systolic 140 mmHg BP Diastolic 67 mmHg Respiratory Rate 16 /min Body Temperature 97.2 F O2 % BldC Oximetry 98 % BMI (Body Mass Index) 27.1 kg/m2 10/25/2014 3:21pm Height 65.5 inches 5'5.50" Weight 165.00 lb Heart Rate 88 /min BP Systolic 144 mmHg LA reg BP Diastolic 62 mmHg LA reg BMI (Body Mass Index) 27.0 kg/m2 10/17/2014 2:00pm Height 65.5 inches 5'5.50" Weight 165.00 lb Heart Rate 82 /min BP Systolic 140 mmHg LA reg BP Diastolic 68 mmHg LA reg BMI (Body Mass Index) 27.0 kg/m2 07/15/2014 3:13pm Height 65.5 inches 5'5.50" Weight 172.50 lb Heart Rate 90 /min BP Systolic 128 mmHg la repeat BP Diastolic 72 mmHg la repeat BP Systolic Sitting 150 mmHg LA reg cuff BP Diastolic Sitting 70 mmHg LA reg cuff Respiratory Rate 16 /min BMI (Body Mass Index) 28.3 kg/m2 07/05/2014 3:08pm Height 65.5 inches 5'5.50" Weight 175.00 lb with shoes Heart Rate 90 /min BP Systolic Sitting 150 mmHg La lg cuff BP Diastolic Sitting 80 mmHg La lg cuff Respiratory Rate 18 /min O2 % BldC Oximetry 97 % BMI (Body Mass Index) 28.7 kg/m2 04/28/2014 3:28pm Height 65.5 inches 5'5.50" Weight 174.75 lb Heart Rate 92 /min BP Systolic Sitting 140 mmHg BP Diastolic Sitting 80 mmHg BMI (Body Mass Index) 28.6 kg/m2 03/17/2014 10:57am Height 65.5 inches 5'5.50" Weight 171.50 lb Heart Rate 88 /min BP Systolic Sitting 120 mmHg BP Diastolic Sitting 62 mmHg Respiratory Rate 16 /min BMI (Body Mass Index) 28.1 kg/m2 01/20/2014 2:17pm Height 65.5 inches 5'5.50" Weight 169.00 lb with shoes Heart Rate 88 /min BP Systolic Sitting 134 mmHg LA reg cuff BP Diastolic Sitting 58 mmHg LA reg cuff BP Systolic Standing 138 mmHg LA reg cuff BP Diastolic Standing 62 mmHg LA reg cuff Respiratory Rate 17 /min BMI (Body Mass Index) 27.7 kg/m2 12/30/2013 1:56pm Height 65.5 inches 5'5.50" Heart Rate 76 /min BP Systolic Sitting 116 mmHg BP Diastolic Sitting 52 mmHg 12/16/2013 10:36am Height 65.5 inches 5'5.50" Weight 170.00 lb Heart Rate 88 /min BP Systolic Sitting 142 mmHg left arm, reg cuff BP Diastolic Sitting 56 mmHg left arm, reg cuff BP Systolic Standing 132 mmHg left arm, reg cuff BP Diastolic Standing 54 mmHg left arm, reg cuff Respiratory Rate 16 /min BMI (Body Mass Index) 27.9 kg/m2 06/21/2013 9:10am Height 65.5 inches 5'5.50" Weight 175.00 lb Heart Rate 85 /min BP Systolic 148 mmHg BP Diastolic 70 mmHg BP Systolic Sitting 134 mmHg repeat after resting. BP Diastolic Sitting 61 mmHg repeat after resting. Respiratory Rate 16 /min BMI (Body Mass Index) 28.7 kg/m2 02/18/2013 8:58am Height 65.5 inches 5'5.50" Weight 169.00 lb Heart Rate 88 /min BP Systolic 140 mmHg BP Diastolic 78 mmHg BMI (Body Mass Index) 27.7 kg/m2 12/03/2012 9:08am Height 65.5 inches 5'5.50" Weight 175.00 lb Heart Rate 96 /min BP Systolic 154 mmHg BP Diastolic 74 mmHg Respiratory Rate 16 /min BMI (Body Mass Index) 28.7 kg/m2 10/15/2012 10:14am Height 65.5 inches 5'5.50" Weight 172.00 lb Heart Rate 87 /min BP Systolic 140 mmHg BP Diastolic 74 mmHg Respiratory Rate 16 /min BMI (Body Mass Index) 28.2 kg/m2 08/26/2012 1:37pm Height 65.5 inches 5'5.50" Weight 174.00 lb Heart Rate 76 /min BP Systolic 122 mmHg BP Diastolic 60 mmHg BMI (Body Mass Index) 28.5 kg/m2 08/17/2012 1:51pm Height 65.5 inches 5'5.50" Weight 168.00 lb per pt naked Heart Rate 76 /min BP Systolic 120 mmHg BP Diastolic 60 mmHg BMI (Body Mass Index) 27.5 kg/m2 08/14/2012 11:22am Height 65.5 inches 5'5.50" Heart Rate 126 /min BP Systolic Sitting 100 mmHg BP Diastolic Sitting 80 mmHg 06/05/2012 9:44am Height 65.5 inches 5'5.50" Weight 173.00 lb Heart Rate 85 /min BP Systolic 122 mmHg BP Diastolic 76 mmHg BMI (Body Mass Index) 28.3 kg/m2 03/30/2012 8:50am Height 65.5 inches 5'5.50" Weight 168.25 lb Heart Rate 72 /min Regular BP Systolic Sitting 102 mmHg BP Diastolic Sitting 58 mmHg BMI (Body Mass Index) 27.6 kg/m2 02/26/2012 10:56am Height 65.5 inches 5'5.50" Weight 170.00 lb Heart Rate 109 /min BP Systolic 124 mmHg BP Diastolic 70 mmHg Respiratory Rate 16 /min Body Temperature 98.0 F BMI (Body Mass Index) 27.9 kg/m2 01/23/2012 1:12pm Height 65.5 inches 5'5.50" Weight 177.25 lb Heart Rate 68 /min regular BP Systolic Sitting 118 mmHg BP Diastolic Sitting 62 mmHg BMI (Body Mass Index) 29.0 kg/m2 01/15/2012 10:12am Height 65.5 inches 5'5.50" Weight 178.00 lb Heart Rate 74 /min BP Systolic Sitting 130 mmHg BP Diastolic Sitting 70 mmHg BMI (Body Mass Index) 29.2 kg/m2 12/04/2011 10:23am Height 65.5 inches 5'5.50" Weight 178.00 lb Heart Rate 66 /min BP Systolic 138 mmHg BP Diastolic 70 mmHg Respiratory Rate 16 /min BMI (Body Mass Index) 29.2 kg/m2 07/10/2011 11:15am Height 65.5 inches 5'5.50" Weight 182.00 lb Heart Rate 81 /min BP Systolic 154 mmHg BP Diastolic 70 mmHg BMI (Body Mass Index) 29.8 kg/m2 02/04/2011 1:34pm Weight 184.00 lb Heart Rate 80 /min BP Systolic Sitting 150 mmHg BP Diastolic Sitting 70 mmHg 12/13/2009 10:42am Height 66 inches 5'6" Weight 181.00 lb Heart Rate 79 /min BP Systolic Sitting 140 mmHg BP Diastolic Sitting 62 mmHg BMI (Body Mass Index) 29.2 kg/m2 05/17/2009 10:29am Height 66 inches 5'6" Weight 183.00 lb Heart Rate 83 /min BP Systolic Sitting 134 mmHg BP Diastolic Sitting 70 mmHg BMI (Body Mass Index) 29.5 kg/m2 03/07/2009 9:53am Weight 179.00 lb Heart Rate 75 /min BP Systolic Sitting 132 mmHg BP Diastolic Sitting 80 mmHg 02/09/2009 9:42am Weight 179.00 lb Heart Rate 78 /min BP Systolic Sitting 150 mmHg BP Diastolic Sitting 70 mmHg Respiratory Rate 16 /min 01/04/2009 9:08am Height 66 inches 5'6" Weight 177.00 lb Heart Rate 58 /min BP Systolic Sitting 112 mmHg L BP Diastolic Sitting 60 mmHg L BMI (Body Mass Index) 28.6 kg/m2 Results Test Date Facility Test Result H/L Range Note Basic Metabolic 10/22/2014 [facility] Sodium 132 mmol/L Low 133-145 [address] [place] [address] [phone] Potassium 4.5 mmol/L N 3.5-5.0 Chloride 99 mmol/L Low 101-111 Co2 Carbon Dioxide 26 mmol/L N 22-32 Anion Gap 7 mmol/L N 2-11 Glucose 286 mg/dL High 70-100 Blood Urea Nitrogen 19 mg/dL N 6-24 Creatinine 0.96 mg/dL High 0.51-0.95 BUN/Creatinine Ratio 19.8 N 8-20 Calcium 9.8 mg/dL N 8.6-10.3 Egfr Non- 55.8 N >60 Egfr 71.7 N >60 2 Cath Panel 10/17/2014 [facility] Activated 29.1 N 24.0-36.[address] [address] Thrombo Time [phone] Inr/Protime 10/17/2014 [facility] Inr 1.25 High 0.78-1.[address] [place] [address] [phone] Basic 10/17/2014 [facility] Sodium 136 mmol/L N 133-[address] [place] [address] [phone] Potassium 4.0 mmol/L N 3.5-5.0 Chloride 103 mmol/L N 101-111 Co2 Carbon Dioxide 24 mmol/L N 22-32 Anion Gap 9 mmol/L N 2-11 Glucose 102 mg/dL High 70-100 Blood Urea Nitrogen 21 mg/dL N 6-24 Creatinine 0.88 mg/dL N 0.51-0.95 BUN/Creatinine Ratio 23.9 High 8-20 Calcium 10.5 mg/dL High 8.6-10.3 Egfr Non- 61.7 N >60 Egfr 79.3 N >60 4 CBC Auto Diff 10/17/2014 [facility] White Blood 9.2 10^3/uL N 4.8-10.[address] [place] [address] [phone] Red Blood Count 4.21 10^6/uL N 4.0-5.4 Hemoglobin 12.0 g/dL N 12.0-16.0 Hematocrit 36 % N 35-47 Mean Corpuscular Volume 86 fL N 80-97 Mean Corpuscular Hemoglobin 28 pg N 27-31 Mean Corpuscular HGB Conc 33 g/dL N 31-36 Red Cell Distribution Width 16 % High 10.5-15 Platelet Count 267 10^3/uL N 150-450 Mean Platelet Volume 8 um3 N 7.4-10.4 Abs Neutrophils 4.9 10^3/uL N 1.5-7.7 Abs Lymphocytes 3.3 10^3/uL N 1.0-4.8 Abs Monocytes 0.9 10^3/uL High 0-0.8 Abs Eosinophils 0.1 10^3/uL N 0-0.6 Abs Basophils 0 10^3/uL N 0-0.2 Abs Nucleated RBC 0.01 10^3/uL N Granulocyte % 53.1 % N 38-83 Lymphocyte % 35.6 % N 25-47 Monocyte % 10.1 % High 1-9 Eosinophil % 0.7 % N 0-6 Basophil % 0.5 % N 0-2 Nucleated Red Blood Cells % 0.1 N Order 08/30/2014 [facility] Echocardiogram <pending> [address] [place] [address] [phone] CBC Auto 01/19/2014 [facility] White Blood Count 8.1 10^3/uL N 4.8-10. [address] [place] [address] [phone] Red Blood Count 3.80 10^6/uL Low 4.0-5.4 Hemoglobin 11.6 g/dL Low 12.0-16.0 Hematocrit 34 % Low 35-47 Mean Corpuscular Volume 88 fL N 80-97 Mean Corpuscular Hemoglobin 30 pg N 27-31 Mean Corpuscular HGB Conc 35 g/dL N 31-36 Red Cell Distribution Width 16 % High 10.5-15 Platelet Count 244 10^3/uL N 150-450 Mean Platelet Volume 8 um3 N 7.4-10.4 Abs Neutrophils 4.4 10^3/uL N 1.5-7.7 Abs Lymphocytes 2.9 10^3/uL N 1.0-4.8 Abs Monocytes 0.6 10^3/uL N 0-0.8 Abs Eosinophils 0.1 10^3/uL N 0-0.6 Abs Basophils 0 10^3/uL N 0-0.2 Abs Nucleated RBC 0 10^3/uL N Granulocyte % 54.6 % N 38-83 Lymphocyte % 36.4 % N 25-47 Monocyte % 7.9 % N 1-9 Eosinophil % 0.9 % N 0-6 Basophil % 0.2 % N 0-2 Nucleated Red Blood Cells % 0 N Basic Metabolic Panel 01/19/2014 [facility] Sodium 137 mmol/L N 133-[address] [place] [address] [phone] Potassium 4.4 mmol/L N 3.7-5.6 Chloride 102 mmol/L N 101-111 Co2 Carbon Dioxide 26 mmol/L N 22-32 Anion Gap 9 mmol/L N 2-11 Glucose 250 mg/dL High 70-100 Blood Urea Nitrogen 21 mg/dL N 6-24 Creatinine 0.95 mg/dL N 0.51-0.95 BUN/Creatinine Ratio 22.1 High 8-20 Calcium 9.8 mg/dL N 8.6-10.3 Egfr Non- 56.6 N >60 Egfr 72.8 N >60 6 Laboratory test 12/20/2013 [facility] Troponin I 0.02 ng/mL N <0.03 [address] [place] [address] [phone] Comp Metabolic 08/25/2013 [facility] Sodium 136 mmol/L 133- 145 Panel [address] [place] [address] [phone] Potassium 4.7 mmol/L 3.5-5.0 Chloride 104 mmol/L 101-111 Co2 Carbon Dioxide 23.0 mmol/L 22-32 Anion Gap 9.0 mmol/L 2-11 Glucose 174 mg/dL High 70-100 Blood Urea Nitrogen 25 mg/dL High 6-24 Creatinine 1.00 mg/dL 0.50-1.40 BUN/Creatinine Ratio 25.0 High 8-20 Calcium 10.0 mg/dL High 8.1-9.9 Total Protein 7.1 g/dL 6.2-8.1 Albumin 4.1 g/dL 3.2-5.2 Globulin 3.0 g/dL 2-4 Albumin/Globulin Ratio 1.4 1-3 Total Bilirubin 0.7 mg/dL 0.4-1.5 Alkaline Phosphatase 82 U/L 30-110 Alt 19 U/L 14-54 Ast 27 U/L 12-42 Egfr Non- 53.3 >60 Egfr 68.6 >60 8 Lipid Profile 08/25/2013 [facility] Triglycerides 144 mg/dL 40-200 (Trig/Chol/HDL) [address] [place] [address] [phone] Cholesterol 172 mg/dL Less than 200 HDL Cholesterol 46 mg/dL 40-60 9 Cholesterol/HDL Ratio 3.7 Average 1-4.44 LDL Cholesterol 97.2 Less Than 100 10 Laboratory test 08/25/2013 [facility] Creatine Kinase 75 U/L 0-200 [address] [place] [address] [phone] TSH (Thyroid Stimulating Horm) 3.35 miu/mL 0.34-5.60 12 CBC Auto Diff 08/25/2013 [facility] White Blood 9.0 10^3/uL 4.8-10.[address] [place] [address] [phone] Red Blood Count 3.96 10^6/uL Low 4.0-5.4 Hemoglobin 11.8 g/dL Low 12.0-16.0 Hematocrit 35 % 35-47 Mean Corpuscular Volume 87 fL 80-97 Mean Corpuscular Hemoglobin 30 pg 27-31 Mean Corpuscular HGB Conc 34 g/dL 31-36 Red Cell Distribution Width 15 % 10.5-15 Platelet Count 251 10^3/uL 150-450 Mean Platelet Volume 8 um3 7.4-10.4 Abs Neutrophils 5.4 10^3/uL 1.5-7.7 Abs Lymphocytes 2.6 10^3/uL 1.0-4.8 Abs Monocytes 0.8 10^3/uL 0-0.8 Abs Eosinophils 0.1 10^3/uL 0-0.6 Abs Basophils 0 10^3/uL 0-0.2 Abs Nucleated RBC 0.01 10^3/uL Granulocyte % 60.4 % 38-83 Lymphocyte % 28.8 % 25-47 Monocyte % 9.0 % 1-9 Eosinophil % 1.5 % 0-6 Basophil % 0.3 % 0-2 Nucleated Red Blood Cells % 0.1 Lipid Panel - 12/22/2012 [facility] Creatine Kinase 60 U/L 0- 200 [address] [place] [address] [phone] Lipid Profile 12/22/2012 [facility] Triglycerides 100 mg/dL 40-200 (Trig/Chol/HDL) [address] [place] [address] [phone] Cholesterol 205 mg/dL High Less than 200 HDL Cholesterol 46 mg/dL 40-60 14 Cholesterol/HDL Ratio 4.5 Average High 1-4.44 LDL Cholesterol 139.0 mg/dL High Less Than 100 15 Comp Metabolic Panel 12/22/2012 [facility] Sodium 139 mmol/L 133-[address] [place], [place] [id number] [phone] Potassium 4.4 mmol/L 3.5-5.0 Chloride 104 mmol/L 101-111 Co2 Carbon Dioxide 24.0 mmol/L 22-32 Anion Gap 11.0 mmol/L 2-11 Glucose 145 mg/dL High 70-100 Blood Urea Nitrogen 21 mg/dL 6-24 Creatinine 1.20 mg/dL 0.50-1.40 BUN/Creatinine Ratio 17.5 8-20 Calcium 9.9 mg/dL 8.1-9.9 Total Protein 6.8 g/dL 6.2-8.1 Albumin 3.8 g/dL 3.2-5.2 Globulin 3.0 g/dL 2-4 Albumin/Globulin Ratio 1.3 1-3 Total Bilirubin 0.5 mg/dL 0.4-1.5 Alkaline Phosphatase 74 U/L 30-110 Alt 15 U/L 14-54 Ast 21 U/L 12-42 Egfr Non- 43.3 >60 Egfr 55.7 >60 16 Laboratory 12/22/2012 [facility] TSH (Thyroid 7.22 High 0.34- 5.60 [address] Stimulating miu/[place] [address] Horm) [phone] Free T4 0.69 ng/mL 0.61-1.24 18 Laboratory 08/14/2012 [facility] TSH (Thyroid 8.09 High 0.34- 5.60 test finding Stimulating MIU/[place] [address] Horm) [phone] Comp Metabolic 08/14/2012 [facility] Sodium 138 mmol/L 133- 145 Panel [address] [place] [address] [phone] Potassium 4.0 mmol/L 3.5-5.0 Chloride 106 mmol/L 101-111 Co2 Carbon Dioxide 23.0 mmol/L 22-32 Anion Gap 9.0 mmol/L 2-11 Glucose 95 mg/dL 70-100 Blood Urea Nitrogen 25 mg/dL High 6-24 Creatinine 0.90 mg/dL 0.50-1.40 BUN/Creatinine Ratio 27.8 High 8-20 Calcium 10.1 mg/dL High 8.1-9.9 Total Protein 7.0 GM/DL 6.2-8.1 Albumin 4.1 GM/DL 3.2-5.2 Globulin 2.9 GM/DL 2-4 Albumin/Globulin Ratio 1.4 1-3 Total Bilirubin 0.8 mg/dL 0.4-1.5 Alkaline Phosphatase 77 U/L 30-110 Alt 17 U/L 14-54 Ast 24 U/L 12-42 Egfr Non- 60.4 >60 Egfr 77.7 >60 19 CBC No Diff 08/14/2012 [facility] White Blood 9.6 10^3/uL 4.8 -10.[address] [place] [address] [phone] Red Blood Count 4.10 10^6/uL 4.0-5.4 Hemoglobin 12.7 g/dL 12.0-16.0 Hematocrit 38 % 35-47 Mean Corpuscular Volume 93 fL 80-97 Mean Corpuscular Hemoglobin 31 pg 27-31 Mean Corpuscular HGB Conc 34 g/dL 31-36 Red Cell Distribution Width 14 % 10.5-15 Platelet Count 234 10^3/uL 150-450 Mean Platelet Volume 8 um3 7.4-10.4 CBC Auto Diff 06/11/2012 [facility] White Blood 7.6 CUMM 4.8- 10.[address] [place] [address] [phone] Red Cell Count 3.92 CUMM Low 4.2-5.4 Hemoglobin 12.0 g/dL 12.0-16.0 Hematocrit 37 % 35-47 Mean Corpuscular Volume 93 um3 79-97 Mean Corpuscular Hemoglob 31 pg 27-31 Mean Corpuscular HGB Cone 33 g/dL 32-36 Redcell Distribution WDTH 16 % High 10.5-15 Platelet Count 209 CUMM 150-450 Mean Platelet Volume 8.1 um3 7.4-10.4 Gran % 59.6 % 38-83 Lymph % 31.3 % 20-45 Mononuclear % 6.5 % 1-9 Eosinophil % 2.3 % 0-6 Basophil % 0.3 % 0-2 Abs Lymphs 2.4 1.0-4.8 Abs Mononuclear 0.5 0-0.8 Absolute Neutrophil Count 4.5 1.5-7.7 Abs Eosinophils 0.2 0-0.6 Abs Basophils 0 0-0.2 Laboratory test 06/11/2012 [facility] CPK (Creatine 65 U/L 0- [address] Kinase) [place] [address] [phone] Lipid Profile 06/11/2012 [facility] Triglyceride 119 mg/dL 40 -200 (Trig/Chol/HDL) [address] [place] [address] [phone] Cholesterol 154 mg/dL Less Than 200 21 High Density Lipoprotein 49 mg/dL 40-60 22 Cholesterol/HDL Ratio 3.14 AVERAGE 1-4.44 Low Density Lipoprotein 81 mg/dL Less Than 100 23 Comp Metabolic Panel 06/11/2012 [facility] Sodium 140 mmol/L 135-145 [address] [place] [address] [phone] Potassium 4.3 mmol/L 3.5-5.0 Chloride 105 mmol/L 101-111 Co2 (Carbon Dioxide) 27.0 mmol/L 22-32 Anion Gap 8.0 mmol/L 2-11 24 Glucose 157 mg/dL High 70-100 BUN 20 mg/dL 6-24 Creatinine 1.1 mg/dL 0.50-1.40 One Over Creatinine 0.90 BUN/Creatinine Ratio 18.2 8-20 Calcium 10.0 mg/dL High 8.1-9.9 Total Protein 6.3 GM/DL 6.2-8.1 Albumin 4.0 GM/DL 3.2-5.2 Globulin 2.3 GM/DL 2-4 Albumin/Globulin Ratio 1.7 1-3 Bilirubin Total 0.7 mg/dL 0.4-1.5 25 Alkaline Phosphatase 80 U/L 30-110 Alt (SGPT) 19 U/L 14-54 Ast (Sgot) 26 U/L 12-42 eGFR Non- 47.9 > 60 eGFR 61.6 > 60 26 Arterial Blood Gas 01/17/2012 [facility] PH 7.34 Low 7.35- 7.[address] [place] [address] [phone] Pco2 43 mmHg 35-45 Po2 49 mmHg Low 80-100 28 O2 Saturation 85.1 % Low 95-98 Base Excess -2.6 Low -2.0-2.0 Bicarbonate 22.6 mmol/L Arterial Blood Gas 01/17/2012 [facility] PH 7.40 7.35-7.[address] [place] [address] [phone] Pco2 37 mmHg 35-45 Po2 100 mmHg 80-100 O2 Saturation 98.8 % High 95-98 Base Excess -1.6 -2.0-2.0 Bicarbonate 23.7 mmol/L Venous Blood Gas 01/17/2012 [facility] PH 7.33 Low 7.35-7.[address] [place] [address] [phone] Pco2 44 mmHg 35-45 Po2 40 mmHg Low 80-100 O2 Saturation 74.1 % Low 95-98 Base Excess -2.8 Low -2.0-2.0 31 Bicarbonate 22.2 mmol/L CBC Auto Diff 01/15/2012 [facility] White Blood 8.2 CUMM 4.8- 10.[address] [place] [address] [phone] Red Cell Count 3.93 CUMM Low 4.2-5.4 Hemoglobin 12.5 g/dL 12.0-16.0 Hematocrit 36 % 35-47 Mean Corpuscular Volume 92 um3 79-97 Mean Corpuscular Hemoglob 32 pg High 27-31 Mean Corpuscular HGB Cone 35 g/dL 32-36 Redcell Distribution WDTH 14 % 10.5-15 Platelet Count 232 CUMM 150-450 Mean Platelet Volume 9.2 um3 7.4-10.4 Gran % 59.1 % 38-83 Lymph % 30.8 % 25-47 Mononuclear % 8.1 % 1-9 Eosinophil % 1.6 % 0-6 Basophil % 0.4 % 0-2 Abs Lymphs 2.5 1.0-4.8 Abs Mononuclear 0.7 0-0.8 Absolute Neutrophil Count 4.9 1.5-7.7 Abs Eosinophils 0.1 0-0.6 Abs Basophils 0 0-0.2 Basic Metabolic Panel 01/15/2012 [facility] Sodium 137 mmol/L 135-[address] [place] [address] [phone] Potassium 4.5 mmol/L 3.5-5.0 Chloride 104 mmol/L 101-111 Co2 (Carbon Dioxide) 29.0 mmol/L 22-32 Anion Gap 4.0 mmol/L 2-11 32 Glucose 268 mg/dL High 70-100 BUN 22 mg/dL 6-24 Creatinine 0.9 mg/dL 0.50-1.40 One Over Creatinine 1.11 BUN/Creatinine Ratio 24.4 High 8-20 Calcium 9.8 mg/dL 8.1-9.9 eGFR Non- 60.6 > 60 eGFR 77.9 > 60 33 Protime 01/15/2012 [facility] Inr 1.07 0.88-1.[address] [place], [place] [id number] [phone] Protime 12.8 SEC 10.3-13.5 35 Laboratory test 01/15/2012 [facility] TSH 2.77 MIU/ML 0.34- 5.[address] [place] [address] [phone] Lipid Panel - 12/25/2011 [facility] CPK 55 U/L 0-[address] ([place] [address] Kinase) [phone] Comp Metabolic 12/25/2011 [facility] Sodium 139 mmol/L 135- [address] [place], [place] [id number] [phone] Potassium 4.2 mmol/L 3.5-5.0 Chloride 104 mmol/L 101-111 Co2 (Carbon Dioxide) 27.0 mmol/L 22-32 Anion Gap 8.0 mmol/L 2-11 36 Glucose 218 mg/dL High 70-100 BUN 17 mg/dL 6-24 Creatinine 0.8 mg/dL 0.50-1.40 One Over Creatinine 1.25 BUN/Creatinine Ratio 21.3 High 8-20 Calcium 9.8 mg/dL 8.1-9.9 Total Protein 7.0 GM/DL 6.2-8.1 Albumin 4.1 GM/DL 3.2-5.2 Globulin 2.9 GM/DL 2-4 Albumin/Globulin Ratio 1.4 1-3 Bilirubin Total 0.8 mg/dL 0.4-1.5 37 Alkaline Phosphatase 83 U/L 30-110 Alt (SGPT) 31 U/L 14-54 Ast (Sgot) 43 U/L High 12-42 eGFR Non- 69.4 > 60 eGFR 89.2 > 60 38 Lipid Profile 12/25/2011 [facility] Triglyceride 149 mg/dL 40 -200 (Trig/Chol/HDL) [address] [place] [address] [phone] Cholesterol 169 mg/dL Less Than 200 39 High Density Lipoprotein 44 mg/dL 40-60 40 Cholesterol/HDL Ratio 3.84 AVERAGE 1-4.44 Low Density Lipoprotein 95 mg/dL Less Than 100 41 CBC Auto Diff 12/25/2011 [facility] White Blood 8.1 CUMM 4.8- 10.[address] [place] [address] [phone] Red Cell Count 4.12 CUMM Low 4.2-5.4 Hemoglobin 13.0 g/dL 12.0-16.0 Hematocrit 38 % 35-47 Mean Corpuscular Volume 91 um3 79-97 Mean Corpuscular Hemoglob 32 pg High 27-31 Mean Corpuscular HGB Cone 35 g/dL 32-36 Redcell Distribution WDTH 14 % 10.5-15 Platelet Count 237 CUMM 150-450 Mean Platelet Volume 9.1 um3 7.4-10.4 Gran % 52.0 % 38-83 Lymph % 38.4 % 25-47 Mononuclear % 7.2 % 1-9 Eosinophil % 2.0 % 0-6 Basophil % 0.4 % 0-2 Abs Lymphs 3.1 1.0-4.8 Abs Mononuclear 0.6 0-0.8 Absolute Neutrophil Count 4.2 1.5-7.7 Abs Eosinophils 0.2 0-0.6 Abs Basophils 0 0-0.2 MRSA/Vre Screen 10/22/2011 [facility] M <SEE [address] NOTE> [place] [address] [phone] Comp Metabolic 08/20/2011 [facility] Sodium 139 mmol/L 135-[address] [place] [address] [phone] Potassium 4.4 mmol/L 3.5-5.0 Chloride 104 mmol/L 101-111 Co2 (Carbon Dioxide) 27.0 mmol/L 22-32 Anion Gap 8.0 mmol/L 2-11 43 Glucose 212 mg/dL High 70-100 BUN 18 mg/dL 6-24 Creatinine 0.9 mg/dL 0.50-1.40 One Over Creatinine 1.11 BUN/Creatinine Ratio 20.0 8-20 Calcium 9.6 mg/dL 8.1-9.9 Total Protein 6.6 GM/DL 6.2-8.1 Albumin 4.0 GM/DL 3.2-5.2 Globulin 2.6 GM/DL 2-4 Albumin/Globulin Ratio 1.5 1-3 Bilirubin Total 0.7 mg/dL 0.4-1.5 44 Alkaline Phosphatase 80 U/L 30-110 Alt (SGPT) 29 U/L 14-54 Ast (Sgot) 38 U/L 12-42 eGFR Non- 60.6 > 60 eGFR 77.9 > 60 45 Lipid Profile 08/20/2011 [facility] Triglyceride 134 mg/dL 40 -200 (Trig/Chol/HDL) [address] [place] [address] [phone] Cholesterol 158 mg/dL Less Than 200 46 High Density Lipoprotein 45 mg/dL 40-60 47 Cholesterol/HDL Ratio 3.51 AVERAGE 1-4.44 Low Density Lipoprotein 86 mg/dL Less Than 100 48 Laboratory test 08/20/2011 [facility] CPK (Creatine 80 U/L 0- [address] Kinase) [place] [address] [phone] CBC Auto Diff 08/20/2011 [facility] White Blood 7.5 CUMM 4.8- 10.[address] [place] [address] [phone] Red Cell Count 3.93 CUMM Low 4.2-5.4 Hemoglobin 12.4 g/dL 12.0-16.0 Hematocrit 36 % 35-47 Mean Corpuscular Volume 92 um3 79-97 Mean Corpuscular Hemoglob 32 pg High 27-31 Mean Corpuscular HGB Cone 34 g/dL 32-36 Redcell Distribution WDTH 14 % 10.5-15 Platelet Count 205 CUMM 150-450 Mean Platelet Volume 9.4 um3 7.4-10.4 Gran % 51.2 % 38-83 Lymph % 38.6 % 25-47 Mononuclear % 7.8 % 1-9 Eosinophil % 2.3 % 0-6 Basophil % 0.1 % 0-2 Abs Lymphs 2.9 1.0-4.8 Abs Mononuclear 0.6 0-0.8 Absolute Neutrophil Count 3.8 1.5-7.7 Abs Eosinophils 0.2 0-0.6 Abs Basophils 0 0-0.2 Laboratory test 08/20/2011 [facility] TSH 4.42 MIU/ML 0.34- 5.60 finding [address] [place] [address] [phone] Magnesium 2.2 mg/dL 1.7-2.6 Lipid Panel 03/12/2011 [facility] Triglyceride 125 mg/dL 40- 200 [address] [place] [address] [phone] Cholesterol 158 mg/dL Less Than 200 49 High Density Lipoprotein 48 mg/dL 40-60 50 Cholesterol/HDL Ratio 3.29 AVERAGE 1-4.44 Low Density Lipoprotein 85 mg/dL Less Than 100 51 CMP Panel 03/12/2011 [facility] Sodium 139 mmol/L 135-145 [address] [place] [address] [phone] Potassium 4.3 mmol/L 3.5-5.0 Chloride 105 mmol/L 101-111 Co2 (Carbon Dioxide) 27.0 mmol/L 22-32 Anion Gap 7.0 mmol/L 2-11 52 Glucose 200 mg/dL High 70-100 BUN 21 mg/dL 6-24 Creatinine 0.90 mg/dL 0.50-1.40 One Over Creatinine 1.10 BUN/Creatinine Ratio 23.3 High 8-20 Calcium 10.1 mg/dL High 8.1-9.9 Total Protein 6.7 GM/DL 6.2-8.1 Albumin 4.2 GM/DL 3.2-5.2 Globulin 2.5 GM/DL 2-4 Albumin/Globulin Ratio 1.7 1-3 Bilirubin Total 0.9 mg/dL 0.4-1.5 53 Alkaline Phosphatase 85 U/L 30-110 Alt (SGPT) 27 U/L 14-54 Ast (Sgot) 39 U/L 12-42 eGFR Non- 60.7 > 60 eGFR 78.1 > 60 54 Lipid Panel - 03/12/2011 [facility] CPK (Creatine 104 U/L 0- [address] Kinase) [place] [address] [phone] Basic Metabolic 12/04/2010 [facility] Sodium 135 135-[address] mmol/L [place], [place] [id number] [phone] Potassium 4.2 mmol/L 3.5-5.0 Chloride 102 mmol/L 101-111 Co2 (Carbon Dioxide) 27.0 mmol/L 22-32 Anion Gap 6.0 mmol/L 2-11 55 Glucose 306 mg/dL High 70-100 BUN 20 mg/dL 6-24 Creatinine 1.00 mg/dL 0.50-1.40 One Over Creatinine 1.00 BUN/Creatinine Ratio 20.0 8-20 Calcium 9.7 mg/dL 8.1-9.9 eGFR Non- 53.8 > 60 eGFR 69.1 > 60 56 Basic Metabolic Panel 11/10/2010 [facility] Sodium 136 mmol/L 135-[address] [place] [address] [phone] Potassium 4.1 mmol/L 3.5-5.0 Chloride 101 mmol/L 101-111 Co2 (Carbon Dioxide) 27.0 mmol/L 22-32 Anion Gap 8.0 mmol/L 2-11 57 Glucose 174 mg/dL High 70-100 BUN 22 mg/dL 6-24 Creatinine 0.80 mg/dL 0.50-1.40 One Over Creatinine 1.20 BUN/Creatinine Ratio 27.5 High 8-20 Calcium 9.6 mg/dL 8.1-9.9 eGFR Non- 69.6 > 60 eGFR 89.4 > 60 58 Laboratory test 11/10/2010 [facility] Magnesium 2.1 mg/dL 1.7 -2.[address] [place] [address] [phone] Lipid Panel - 08/22/2010 [facility] CPK (Creatine 121 U/L 0- [address] Kinase) [place] [address] [phone] CMP Panel 08/22/2010 [facility] Sodium 138 mmol/L 135-[address] [place] [address] [phone] Potassium 4.4 mmol/L 3.5-5.0 Chloride 105 mmol/L 101-111 Co2 (Carbon Dioxide) 27.0 mmol/L 22-32 Anion Gap 6.0 mmol/L 2-11 59 Glucose 165 mg/dL High 70-100 60 BUN 21 mg/dL 6-24 Creatinine 0.90 mg/dL 0.50-1.40 One Over Creatinine 1.10 BUN/Creatinine Ratio 23.3 High 8-20 Calcium 9.6 mg/dL 8.1-9.9 Total Protein 7.0 GM/DL 6.2-8.1 Albumin 4.0 GM/DL 3.2-5.2 Globulin 3.0 GM/DL 2-4 Albumin/Globulin Ratio 1.3 1-3 Bilirubin Total 0.6 mg/dL 0.4-1.5 61 Alkaline Phosphatase 82 U/L 30-110 Alt (SGPT) 20 U/L 14-54 Ast (Sgot) 32 U/L 12-42 eGFR Non- 64.5 > 60 eGFR 78.1 > 60 62 Lipid Panel 08/22/2010 [facility] Triglyceride 89 mg/dL 40- 200 [address] [place] [address] [phone] Cholesterol 148 mg/dL Less Than 200 63 High Density Lipoprotein 49 mg/dL 40-60 64 Cholesterol/HDL Ratio 3.02 AVERAGE 1-4.44 Low Density Lipoprotein 81 mg/dL Less Than 100 65 Basic Metabolic Panel 06/05/2010 [facility] Sodium 139 mmol/L 135-145 [address] [place] [address] [phone] Potassium 4.2 mmol/L 3.5-5.0 Chloride 105 mmol/L 101-111 Co2 (Carbon Dioxide) 24.0 mmol/L 22-32 Anion Gap 10.0 mmol/L 2-11 66 Glucose 161 mg/dL High 70-100 67 BUN 18 mg/dL 6-24 Creatinine 0.80 mg/dL 0.50-1.40 One Over Creatinine 1.20 BUN/Creatinine Ratio 22.5 High 8-20 Calcium 9.2 mg/dL 8.1-9.9 eGFR Non- 73.9 > 60 eGFR 89.4 > 60 68 Protime 04/07/2010 [facility] Inr 2.79 High 0.97-1.03 69 [address] [place] [address] [phone] Protime 33.3 SEC High 11.5-12.2 70 CBC With 04/05/2010 [facility] White Blood 8.5 CUMM 4.8-10.8 Electronic Diff [address] [place] [address] [phone] Red Cell Count 4.01 CUMM Low 4.2-5.4 Hemoglobin 12.4 g/dL 12.0-16.0 Hematocrit 37 % 35-47 Mean Corpuscular Volume 91 um3 79-97 Mean Corpuscular Hemoglob 31 pg 27-31 Mean Corpuscular HGB Cone 34 g/dL 32-36 Redcell Distribution WDTH 15 % 10.5-15 Platelet Count 236 CUMM 150-450 Mean Platelet Volume 8.3 um3 7.4-10.4 71 Manual 04/05/2010 [facility] Polysegmented 36 % Low 38-[address] [place] [address] [phone] Lymphocyte 56 % High 25-47 Monocyte 7 % 0-13 Eosinophil 1 % 0-6 Absolute Neutrophil Count 3.0 Manual Diff Comments (SEE NOTE) 72 RBC Morphology NORMAL MRSA/Vre 04/04/2010 [facility] MRSA/Vre Culture [facility] 73, [address] [place] [address] [phone] Lipid Profile 02/16/2010 [facility] Triglyceride 84 mg/dL 40- 20 (Trig/Chol/HDL [address] 0 ) [place] [address] [phone] Cholesterol 150 mg/dL Less Than 200 75 High Density Lipoprotein 51 mg/dL 40-60 76 Cholesterol/HDL Ratio 2.94 AVERAGE 1-4.44 Low Density Lipoprotein 82 mg/dL Less Than 100 77 Comp Metabolic Panel 02/16/2010 [facility] Sodium 142 mmol/L 135-[address] [place] [address] [phone] Potassium 4.1 mmol/L 3.5-5.0 Chloride 108 mmol/L 101-111 Co2 (Carbon Dioxide) 27.0 mmol/L 22-32 Anion Gap 7.0 mmol/L 2-11 78 Glucose 154 mg/dL High 70-100 79 BUN 16 mg/dL 6-24 Creatinine 1.00 mg/dL 0.50-1.40 One Over Creatinine 1.00 BUN/Creatinine Ratio 16.0 8-20 Calcium 9.4 mg/dL 8.1-9.9 80 Total Protein 6.8 GM/DL 6.2-8.1 Albumin 4.0 GM/DL 3.2-5.2 Globulin 2.8 GM/DL 2-4 Albumin/Globulin Ratio 1.4 1-3 Bilirubin Total 0.6 mg/dL 0.4-1.5 81 Alkaline Phosphatase 74 U/L 30-110 Alt (SGPT) 18 U/L 14-54 Ast (Sgot) 35 U/L 12-42 eGFR Non- 57.3 > 60 eGFR 69.3 > 60 82 Lipid Panel - 02/16/2010 [facility] CPK (Creatine 101 U/L 0- [address] Kinase) [place] [address] [phone] Lipid Profile 08/16/2009 [facility] Triglyceride 122 mg/dL 40 -200 (Trig/Chol/HDL [address] ) [place] [address] [phone] Cholesterol 182 mg/dL Less Than 200 83 High Density Lipoprotein 48 mg/dL 40-60 84 Cholesterol/HDL Ratio 3.79 AVERAGE 1-4.44 Low Density Lipoprotein 110 mg/dL High Less Than 100 85 Comp Metabolic Panel 08/16/2009 [facility] Sodium 139 mmol/L 135-[address] [place] [address] [phone] Potassium 3.9 mmol/L 3.5-5.0 Chloride 105 mmol/L 101-111 Co2 (Carbon Dioxide) 26.0 mmol/L 22-32 Anion Gap 8.0 mmol/L 2-11 86 Glucose 149 mg/dL High 70-100 87 BUN 19 mg/dL 6-24 Creatinine 0.80 mg/dL 0.50-1.40 One Over Creatinine 1.20 BUN/Creatinine Ratio 23.8 High 8-20 Calcium 9.5 mg/dL 8.1-9.9 88 Total Protein 6.6 GM/DL 6.2-8.1 Albumin 3.9 GM/DL 3.2-5.2 Globulin 2.7 GM/DL 2-4 Albumin/Globulin Ratio 1.4 1-3 Bilirubin Total 0.6 mg/dL 0.4-1.5 89 Alkaline Phosphatase 86 U/L 30-110 Alt (SGPT) 17 U/L 14-54 Ast (Sgot) 26 U/L 12-42 eGFR Non- 74.1 > 60 eGFR 89.7 > 60 90 Lipid Panel - 08/16/2009 [facility] CPK (Creatine 105 U/L 0- [address] Kinase) [place] [address] [phone] Lipid Profile 03/15/2009 [facility] Triglyceride 147 mg/dL 40 -200 (Trig/Chol/HDL [address] ) [place], [place] [id number] [phone] Cholesterol 169 mg/dL Less Than 200 91 High Density Lipoprotein 46 mg/dL 40-60 92 Cholesterol/HDL Ratio 3.67 AVERAGE 1-4.44 Low Density Lipoprotein 94 mg/dL Less Than 100 93 Comp Metabolic Panel 03/15/2009 [facility] Sodium 139 mmol/L 135-[address] [place] [address] [phone] Potassium 4.3 mmol/L 3.5-5.0 Chloride 106 mmol/L 101-111 Co2 (Carbon Dioxide) 25.0 mmol/L 22-32 Anion Gap 8.0 mmol/L 2-11 94 Glucose 136 mg/dL High 70-100 95 BUN 16 mg/dL 6-24 Creatinine 0.80 mg/dL 0.50-1.40 One Over Creatinine 1.20 BUN/Creatinine Ratio 20.0 8-20 Calcium 9.6 mg/dL 8.1-9.9 96 Total Protein 6.6 GM/DL 6.2-8.1 Albumin 3.9 GM/DL 3.2-5.2 Globulin 2.7 GM/DL 2-4 Albumin/Globulin Ratio 1.4 1-3 Bilirubin Total 0.7 mg/dL 0.4-1.5 97 Alkaline Phosphatase 90 U/L 30-110 Alt (SGPT) 14 U/L 14-54 Ast (Sgot) 24 U/L 12-42 Lipid Panel - 03/15/2009 [facility] CPK (Creatine 74 U/L 0- [address] Kinase) [place] [address] [phone] Laboratory test 01/11/2009 [facility] Magnesium 2.1 mg/dL 1.7 -2.[address] [place] [address] [phone] CBC With Manual 01/11/2009 [facility] White Blood 6.8 CUMM 4.8-10.[address] [place] [address] [phone] Red Cell Count 3.91 CUMM Low 4.2-5.4 Hemoglobin 11.9 g/dL Low 12.0-16.0 Hematocrit 35 % 35-47 Mean Corpuscular Volume 90 um3 79-97 Mean Corpuscular Hemoglob 31 pg 27-31 Mean Corpuscular HGB Cone 34 g/dL 32-36 Redcell Distribution WDTH 15 % 10.5-15 Platelet Count 254 CUMM 150-450 Mean Platelet Volume 8.8 um3 7.4-10.4 Polysegmented Neutrophil 58 % 38-83 Lymphocyte 28 % 25-47 Monocyte 9 % 0-13 Eosenophil 4 % 0-6 Atypical Lymph 1 % 0-6 Absolute Neutrophil Count 3.9 Anisocytosis SLIGHT Laboratory test 01/11/2009 [facility] CPK (Creatine 97 U/L 0- [address] Kinase) [place] [address] [phone] Lipid Profile 01/11/2009 [facility] Triglyceride 141 mg/dL 40 -200 (Trig/Chol/HDL) [address] [place] [address] [phone] Cholesterol 215 mg/dL High Less Than 200 98 High Density Lipoprotein 44 mg/dL 40-60 99 Cholesterol/HDL Ratio 4.89 AVERAGE High 1-4.44 Low Density Lipoprotein 143 mg/dL High Less Than 100 100 Comp Metabolic Panel 01/11/2009 [facility] Sodium 141 mmol/L 135-145 [address] [place] [address] [phone] Potassium 4.2 mmol/L 3.5-5.0 Chloride 108 mmol/L 101-111 Co2 (Carbon Dioxide) 26.0 mmol/L 22-32 Anion Gap 7.0 mmol/L 2-11 101 Glucose 137 mg/dL High 70-100 102 BUN 19 mg/dL 6-24 Creatinine 0.80 mg/dL 0.50-1.40 One Over Creatinine 1.20 BUN/Creatinine Ratio 23.8 High 8-20 Calcium 9.4 mg/dL 8.1-9.9 103 Total Protein 6.5 GM/DL 6.2-8.1 Albumin 3.7 GM/DL 3.2-5.2 Globulin 2.8 GM/DL 2-4 Albumin/Globulin Ratio 1.3 1-3 Bilirubin Total 0.5 mg/dL 0.4-1.5 Alkaline Phosphatase 72 U/L 30-110 Alt (SGPT) 17 U/L 14-54 Ast (Sgot) 25 U/L 12-42 CBC With Manual 12/05/2008 [facility] White Blood 8.7 CUMM 4.8-10.8 [address] [place] [address] [phone] Red Cell Count 4.11 CUMM Low 4.2-5.4 Hemoglobin 12.5 g/dL 12.0-16.0 Hematocrit 37 % 35-47 Mean Corpuscular Volume 89 um3 79-97 Mean Corpuscular Hemoglob 30 pg 27-31 Mean Corpuscular HGB Cone 34 g/dL 32-36 Redcell Distribution WDTH 14 % 10.5-15 Platelet Count 280 CUMM 150-450 Mean Platelet Volume 8.6 um3 7.4-10.4 Polysegmented Neutrophil 77 % 38-83 Band Neutrophil 1 % 0-8 Lymphocyte 20 % Low 25-47 Monocyte 1 % 0-13 Basophil 1 % 0-2 Absolute Neutrophil Count 6.7 RBC Morphology NORMAL Comp Metabolic Panel 12/05/2008 [facility] Sodium 140 mmol/L 135-[address] [place] [address] [phone] Potassium 4.4 mmol/L 3.5-5.0 Chloride 104 mmol/L 101-111 Co2 (Carbon Dioxide) 27.0 mmol/L 22-32 Anion Gap 9.0 mmol/L 2-11 105 Glucose 144 mg/dL High 70-100 106 BUN 23 mg/dL 6-24 Creatinine 0.90 mg/dL 0.50-1.40 One Over Creatinine 1.10 BUN/Creatinine Ratio 25.6 High 8-20 Calcium 9.8 mg/dL 8.1-9.9 107 Total Protein 6.8 GM/DL 6.2-8.1 Albumin 3.9 GM/DL 3.2-5.2 Globulin 2.9 GM/DL 2-4 Albumin/Globulin Ratio 1.3 1-3 Bilirubin Total 0.6 mg/dL 0.4-1.5 Alkaline Phosphatase 75 U/L 30-110 Alt (SGPT) 15 U/L 14-54 Ast (Sgot) 25 U/L 12-[address] FARAH WITH RESULTS.. NUMBER [phone]. THANK YOU! PLEASE CALL RESULTS TO DR FARAH AT [phone] 2 Because ethnic data is not always readily available, this report includes an eGFR for both -Americans and non- Americans. The National Kidney Disease Education Program (NKDEP) does not endorse the use of the MDRD equation for patients that are not between the ages of 18 and 70, are , have extremes of body size, muscle mass, or nutritional status, or are non- or non-. According to the National Kid[employer] Foundation, irrespective of diagnosis, the stage of the disease is based on the level of kidney function: Stage Description GFR(mL/min/1.73 m(2)) 1 Kidney damage with normal or decreased GFR 90 2 Kidney damage with mild decrease in GFR 60-89 3 Moderate decrease in GFR 30-59 4 Severe decrease in GFR 15-29 5 Kidney failure <15 (or dialysis) 3 Please note: Effective October 12, 2014, the reference value for this test has changed due to the validation and activation of a new reagent lot number. 4 Because ethnic data is not always readily available, this report includes an eGFR for both -Americans and non- Americans. The National Kidney Disease Education Program (NKDEP) does not endorse the use of the MDRD equation for patients that are not between the ages of 18 and 70, are , have extremes of body size, muscle mass, or nutritional status, or are non- or non-. According to the National Kid[employer] Foundation, irrespective of diagnosis, the stage of the disease is based on the level of kidney function: Stage Description GFR(mL/min/1.73 m(2)) 1 Kidney damage with normal or decreased GFR 90 2 Kidney damage with mild decrease in GFR 60-89 3 Moderate decrease in GFR 30-59 4 Severe decrease in GFR 15-29 5 Kidney failure <15 (or dialysis) 5 fsting in 2-3 weeks ccpmd 6 Because ethnic data is not always readily available, this report includes an eGFR for both -Americans and non- Americans. The National Kidney Disease Education Program (NKDEP) does not endorse the use of the MDRD equation for patients that are not between the ages of 18 and 70, are , have extremes of body size, muscle mass, or nutritional status, or are non- or non-. According to the National Kidney Foundation, irrespective of diagnosis, the stage of the disease is based on the level of kidney function: Stage Description GFR(mL/min/1.73 m(2)) 1 Kidney damage with normal or decreased GFR 90 2 Kidney damage with mild decrease in GFR 60-89 3 Moderate decrease in GFR 30-59 4 Severe decrease in GFR 15-29 5 Kidney failure <15 (or dialysis) 7 Reference Range and Interpretation: TnI (ng/mL) Interpretation Less Than 0.03 ng/mL Not supportive of diagnosis of SD 0.03 - 0.50 ng/mL Indeterminate: suggest serial studies if clinically indicated. Greater than 0.5 ng/mL Consistent with diagnosis of SD 8 Because ethnic data is not always readily available, this report includes an eGFR for both -Americans and non- Americans. The National Kidney Disease Education Program (NKDEP) does not endorse the use of the MDRD equation for patients that are not between the ages of 18 and 70, are , have extremes of body size, muscle mass, or nutritional status, or are non- or non-. According to the National Kidney Foundation, irrespective of diagnosis, the stage of the disease is based on the level of kidney function: Stage Description GFR(mL/min/1.73 m(2)) 1 Kidney damage with normal or decreased GFR 90 2 Kidney damage with mild decrease in GFR 60-89 3 Moderate decrease in GFR 30-59 4 Severe decrease in GFR 15-29 5 Kidney failure <15 (or dialysis) 9 HDL Interpretation: Undesirable: High Risk: Less than 40 mg/dL Desirable: Low Risk: Greater than 60 mg/dL 10 LDL Interpretation: Low Risk Optimal Level: LDL Less than 100 mg/dL Near or Above Optimal: LDL 100-129 mg/dL Borderline High Risk: LDL 130-159 mg/dL High Risk: LDL 160-189 mg/dL Very High Risk: LDL Greater than 189 mg/dL 11 FASTING 12 FASTING 13 FASTING 14 HDL Interpretation: Undesirable: High Risk: Less than 40 MG/DL Desirable: Low Risk: Greater than 60 MG/DL 15 LDL Interpretation: Low Risk Optimal Level: LDL Less than 100 MG/DL Near or Above Optimal: LDL 100-129 MG/DL Borderline High Risk: LDL 130-159 MG/DL High Risk: LDL 160-189 MG/DL Very High Risk: LDL Greater than 189 MG/DL 16 Because ethnic data is not always readily available, this report includes an eGFR for both -Americans and non- Americans. The National Kidney Disease Education Program (NKDEP) does not endorse the use of the MDRD equation for patients that are not between the ages of 18 and 70, are , have extremes of body size, muscle mass, or nutritional status, or are non- or non-. According to the National Kidney Foundation, irrespective of diagnosis, the stage of the disease is based on the level of kidney function: Stage Description GFR(mL/min/1.73 m(2)) 1 Kidney damage with normal or decreased GFR 90 2 Kidney damage with mild decrease in GFR 60-89 3 Moderate decrease in GFR 30-59 4 Severe decrease in GFR 15-29 5 Kidney failure <15 (or dialysis) 17 Fasting 18 Fasting 19 Because ethnic data is not always readily available, this report includes an eGFR for both -Americans and non- Americans. The National Kidney Disease Education Program (NKDEP) does not endorse the use of the MDRD equation for patients that are not between the ages of 18 and 70, are , have extremes of body size, muscle mass, or nutritional status, or are non- or non-. According to the National Kid[employer] Foundation, irrespective of diagnosis, the stage of the disease is based on the level of kidney function: Stage Description GFR(mL/min/1.73 m(2)) 1 Kidney damage with normal or decreased GFR 90 2 Kidney damage with mild decrease in GFR 60-89 3 Moderate decrease in GFR 30-59 4 Severe decrease in GFR 15-29 5 Kidney failure <15 (or dialysis) 20 FASTING 21 CHOLESTEROL INTERPRETATION: Desirable: Less than 200 MG/DL Borderline-High Risk: 200-239 MG/DL High-Risk: 240 MG/DL and over 22 HDL INTERPRETATION: Undesirable: High Risk: Less than 40 MG/DL Desirable: Low Risk: Greater than 60 MG/DL 23 LDL INTERPRETATION: Low Risk Optimal Level: LDL Less than 100 MG/DL Near or Above Optimal: LDL 100-129 MG/DL Borderline High Risk: LDL 130-159 MG/DL High Risk: LDL 160-189 MG/DL Very High Risk: LDL Greater than 189 MG/DL 24 Anion gap measurement may be of limited value in the presence of any alkalosis, especially in a combined acid base disorder. . 25 A metabolite of Naproxen, O-desmethylnaproxen, has been shown to interfere with the [facility] method for measuring total bilirubin. Samples from patients who have taken Naproxen have shown spurious elevation in total bilirubin levels. 26 Because ethnic data is not always readily available, this report includes an eGFR for both -Americans and non- Americans. The National Kidney Disease Education Program (NKDEP) does not endorse the use of the MDRD equation for patients that are not between the ages of 18 and 70, are , have extremes of body size, muscle mass, or nutritional status, or are non- or non-. According to the National Kidney Foundation, irrespective of diagnosis, the stage of the disease is based on the level of kidney function: Stage Description GFR(mL/min/1.73 m(2)) 1 Kidney damage with normal or decreased GFR 90 2 Kidney damage with mild decrease in GFR 60-89 3 Moderate decrease in GFR 30-59 4 Severe decrease in GFR 15-29 5 Kidney failure <15 (or dialysis) 27 PA 28 VERBAL TO AIRAM BY BM at 1037 on 01/17/12 that panic result(s) have been read back accurately. 29 AORTA 30 PULMONARY ARTERY 31 REFERENCE RANGES BASED ON ROOM AIR 32 Anion gap measurement may be of limited value in the presence of any alkalosis, especially in a combined acid base disorder. . 33 Because ethnic data is not always readily available, this report includes an eGFR for both -Americans and non- Americans. The National Kidney Disease Education Program (NKDEP) does not endorse the use of the MDRD equation for patients that are not between the ages of 18 and 70, are , have extremes of body size, muscle mass, or nutritional status, or are non- or non-. According to the National Kidney Foundation, irrespective of diagnosis, the stage of the disease is based on the level of kidney function: Stage Description GFR(mL/min/1.73 m(2)) 1 Kidney damage with normal or decreased GFR 90 2 Kidney damage with mild decrease in GFR 60-89 3 Moderate decrease in GFR 30-59 4 Severe decrease in GFR 15-29 5 Kidney failure <15 (or dialysis) 34 Recommended INR for Patients on Oral Anticoagulants Prophylaxis 2.0 - 3.0 Treatment of thrombosis 2.0 - 3.0 Prevention of embolism 2.0 - 3.0 Prevention of embolism from prosthetic heart valves 2.5 - 3.5 35 DIAGNOSIS,TREATMENT,AND THERAPY MUST BE BASED ON THE INR VALUE ALONE. 36 Anion gap measurement may be of limited value in the presence of any alkalosis, especially in a combined acid base disorder. . 37 A metabolite of Naproxen, O-desmethylnaproxen, has been shown to interfere with the [facility] method for measuring total bilirubin. Samples from patients who have taken Naproxen have shown spurious elevation in total bilirubin levels. 38 Because ethnic data is not always readily available, this report includes an eGFR for both -Americans and non- Americans. The National Kidney Disease Education Program (NKDEP) does not endorse the use of the MDRD equation for patients that are not between the ages of 18 and 70, are , have extremes of body size, muscle mass, or nutritional status, or are non- or non-. According to the National Kidney Foundation, irrespective of diagnosis, the stage of the disease is based on the level of kidney function: Stage Description GFR(mL/min/1.73 m(2)) 1 Kidney damage with normal or decreased GFR 90 2 Kidney damage with mild decrease in GFR 60-89 3 Moderate decrease in GFR 30-59 4 Severe decrease in GFR 15-29 5 Kidney failure <15 (or dialysis) 39 CHOLESTEROL INTERPRETATION: Desirable: Less than 200 MG/DL Borderline-High Risk: 200-239 MG/DL High-Risk: 240 MG/DL and over 40 HDL INTERPRETATION: Undesirable: High Risk: Less than 40 MG/DL Desirable: Low Risk: Greater than 60 MG/DL 41 LDL INTERPRETATION: Low Risk Optimal Level: LDL Less than 100 MG/DL Near or Above Optimal: LDL 100-129 MG/DL Borderline High Risk: LDL 130-159 MG/DL High Risk: LDL 160-189 MG/DL Very High Risk: LDL Greater than 189 MG/DL 42 RUN DATE: 10/24/11 [facility] NMI LIVE PAGE 1 RUN TIME: 1211 Specimen Inquiry RUN USER: INTERFACE Name: SONAL PEARL Status: DIS IN Re10/22/11 Age/Sex: 76/F Unit#: [id number] Location: ICU : 33 SPEC #: [id number] ANIVAL: 10/22/11 STATUS: DELROY REQ #: [id number] RECD: 10/22/[address] [facility] [address]SE ENTR: 10/22/11 [facility] DR: Tiffany HUDSON,Asad [facility]: ORDERED: MRSA/VRE CULT ACT WKST: B 10/24/11 #1 Procedure Result Verified Site > MRSA/VRE CULTURE Final 10/24/11- 121 ML NO MRSA ISOLATED - [facility] Permit #[id number] [facility] [employer] [place] [address] DEPARTMENT OF PATHOLOGY, [facility] [address] [place], [place] [address] [facility] Permit #[id number] Han Ayala M.D. Director Susanne Jerry M.D. Lumber Inspector 43 Anion gap measurement may be of limited value in the presence of any alkalosis, especially in a combined acid base disorder. . 44 A metabolite of Naproxen, O-desmethylnaproxen, has been shown to interfere with the [facility] method for measuring total bilirubin. Samples from patients who have taken Naproxen have shown spurious elevation in total bilirubin levels. 45 Because ethnic data is not always readily available, this report includes an eGFR for both -Americans and non- Americans. The National Kidney Disease Education Program (NKDEP) does not endorse the use of the MDRD equation for patients that are not between the ages of 18 and 70, are , have extremes of body size, muscle mass, or nutritional status, or are non- or non-. According to the National Kidney Foundation, irrespective of diagnosis, the stage of the disease is based on the level of kidney function: Stage Description GFR(mL/min/1.73 m(2)) 1 Kidney damage with normal or decreased GFR 90 2 Kidney damage with mild decrease in GFR 60-89 3 Moderate decrease in GFR 30-59 4 Severe decrease in GFR 15-29 5 Kidney failure <15 (or dialysis) 46 CHOLESTEROL INTERPRETATION: Desirable: Less than 200 MG/DL Borderline-High Risk: 200-239 MG/DL High-Risk: 240 MG/DL and over 47 HDL INTERPRETATION: Undesirable: High Risk: Less than 40 MG/DL Desirable: Low Risk: Greater than 60 MG/DL 48 LDL INTERPRETATION: Low Risk Optimal Level: LDL Less than 100 MG/DL Near or Above Optimal: LDL 100-129 MG/DL Borderline High Risk: LDL 130-159 MG/DL High Risk: LDL 160-189 MG/DL Very High Risk: LDL Greater than 189 MG/DL 49 CHOLESTEROL INTERPRETATION: Desirable: Less than 200 MG/DL Borderline-High Risk: 200-239 MG/DL High-Risk: 240 MG/DL and over 50 HDL INTERPRETATION: Undesirable: High Risk: Less than 40 MG/DL Desirable: Low Risk: Greater than 60 MG/DL 51 LDL INTERPRETATION: Low Risk Optimal Level: LDL Less than 100 MG/DL Near or Above Optimal: LDL 100-129 MG/DL Borderline High Risk: LDL 130-159 MG/DL High Risk: LDL 160-189 MG/DL Very High Risk: LDL Greater than 189 MG/DL 52 Anion gap measurement may be of limited value in the presence of any alkalosis, especially in a combined acid base disorder. . 53 A metabolite of Naproxen, O-desmethylnaproxen, has been shown to interfere with the [facility] method for measuring total bilirubin. Samples from patients who have taken Naproxen have shown spurious elevation in total bilirubin levels. 54 Because ethnic data is not always readily available, this report includes an eGFR for both -Americans and non- Americans. The National Kidney Disease Education Program (NKDEP) does not endorse the use of the MDRD equation for patients that are not between the ages of 18 and 70, are , have extremes of body size, muscle mass, or nutritional status, or are non- or non-. According to the National Kidney Foundation, irrespective of diagnosis, the stage of the disease is based on the level of kidney function: Stage Description GFR(mL/min/1.73 m(2)) 1 Kidney damage with normal or decreased GFR 90 2 Kidney damage with mild decrease in GFR 60-89 3 Moderate decrease in GFR 30-59 4 Severe decrease in GFR 15-29 5 Kidney failure <15 (or dialysis) 55 Anion gap measurement may be of limited value in the presence of any alkalosis, especially in a combined acid base disorder. . 56 Because ethnic data is not always readily available, this report includes an eGFR for both -Americans and non- Americans. The National Kidney Disease Education Program (NKDEP) does not endorse the use of the MDRD equation for patients that are not between the ages of 18 and 70, are , have extremes of body size, muscle mass, or nutritional status, or are non- or non-. According to the National Kidney Foundation, irrespective of diagnosis, the stage of the disease is based on the level of kidney function: Stage Description GFR(mL/min/1.73 m(2)) 1 Kidney damage with normal or decreased GFR 90 2 Kidney damage with mild decrease in GFR 60-89 3 Moderate decrease in GFR 30-59 4 Severe decrease in GFR 15-29 5 Kidney failure <15 (or dialysis) 57 Anion gap measurement may be of limited value in the presence of any alkalosis, especially in a combined acid base disorder. . 58 Because ethnic data is not always readily available, this report includes an eGFR for both -Americans and non- Americans. The National Kidney Disease Education Program (NKDEP) does not endorse the use of the MDRD equation for patients that are not between the ages of 18 and 70, are , have extremes of body size, muscle mass, or nutritional status, or are non- or non-. According to the National Kidney Foundation, irrespective of diagnosis, the stage of the disease is based on the level of kidney function: Stage Description GFR(mL/min/1.73 m(2)) 1 Kidney damage with normal or decreased GFR 90 2 Kidney damage with mild decrease in GFR 60-89 3 Moderate decrease in GFR 30-59 4 Severe decrease in GFR 15-29 5 Kidney failure <15 (or dialysis) 59 Anion gap measurement may be of limited value in the presence of any alkalosis, especially in a combined acid base disorder. . 60 Note change in reference range as of 05/05/08. The change was based on recommendations from the [place] [employer]. 61 A metabolite of Naproxen, O-desmethylnaproxen, has been shown to interfere with the [facility] method for measuring total bilirubin. Samples from patients who have taken Naproxen have shown spurious elevation in total bilirubin levels. 62 Because ethnic data is not always readily available, this report includes an eGFR for both -Americans and non- Americans. The National Kidney Disease Education Program (NKDEP) does not endorse the use of the MDRD equation for patients that are not between the ages of 18 and 70, are , have extremes of body size, muscle mass, or nutritional status, or are non- or non-. According to the National Kidney Foundation, irrespective of diagnosis, the stage of the disease is based on the level of kidney function: Stage Description GFR(mL/min/1.73 m(2)) 1 Kidney damage with normal or decreased GFR 90 2 Kidney damage with mild decrease in GFR 60-89 3 Moderate decrease in GFR 30-59 4 Severe decrease in GFR 15-29 5 Kidney failure <15 (or dialysis) 63 CHOLESTEROL INTERPRETATION: Desirable: Less than 200 MG/DL Borderline-High Risk: 200-239 MG/DL High-Risk: 240 MG/DL and over 64 HDL INTERPRETATION: Undesirable: High Risk: Less than 40 MG/DL Desirable: Low Risk: Greater than 60 MG/DL 65 LDL INTERPRETATION: Low Risk Optimal Level: LDL Less than 100 MG/DL Near or Above Optimal: LDL 100-129 MG/DL Borderline High Risk: LDL 130-159 MG/DL High Risk: LDL 160-189 MG/DL Very High Risk: LDL Greater than 189 MG/DL 66 Anion gap measurement may be of limited value in the presence of any alkalosis, especially in a combined acid base disorder. . 67 Note change in reference range as of 05/05/08. The change was based on recommendations from the [place] [employer]. 68 Because ethnic data is not always readily available, this report includes an eGFR for both -Americans and non- Americans. The National Kidney Disease Education Program (NKDEP) does not endorse the use of the MDRD equation for patients that are not between the ages of 18 and 70, are , have extremes of body size, muscle mass, or nutritional status, or are non- or non-. According to the National Kidney Foundation, irrespective of diagnosis, the stage of the disease is based on the level of kidney function: Stage Description GFR(mL/min/1.73 m(2)) 1 Kidney damage with normal or decreased GFR 90 2 Kidney damage with mild decrease in GFR 60-89 3 Moderate decrease in GFR 30-59 4 Severe decrease in GFR 15-29 5 Kidney failure <15 (or dialysis) 69 Recommended INR for Patients on Oral Anticoagulants Prophylaxis 2.0 - 3.0 Treatment of thrombosis 2.0 - 3.0 Prevention of embolism 2.0 - 3.0 Prevention of embolism from prosthetic heart valves 2.5 - 3.5 70 DIAGNOSIS,TREATMENT,AND THERAPY MUST BE BASED ON THE INR VALUE ALONE. 71 Neutropenia % Lymphocytosis % 72 REVIEWED BY SUSANNE JERRY MD 73 COMMENTS: ICU ADMIT 74 NO MRSA ISOLATED 75 CHOLESTEROL INTERPRETATION: Desirable: Less than 200 MG/DL Borderline-High Risk: 200-239 MG/DL High-Risk: 240 MG/DL and over 76 HDL INTERPRETATION: Undesirable: High Risk: Less than 40 MG/DL Desirable: Low Risk: Greater than 60 MG/DL 77 LDL INTERPRETATION: Low Risk Optimal Level: LDL Less than 100 MG/DL Near or Above Optimal: LDL 100-129 MG/DL Borderline High Risk: LDL 130-159 MG/DL High Risk: LDL 160-189 MG/DL Very High Risk: LDL Greater than 189 MG/DL 78 Anion gap measurement may be of limited value in the presence of any alkalosis, especially in a combined acid base disorder. . 79 Note change in reference range as of 05/05/08. The change was based on recommendations from the [place] [employer]. 80 Please note change in reference range effective 08 . 81 A metabolite of Naproxen, O-desmethylnaproxen, has been shown to interfere with the [facility] method for measuring total bilirubin. Samples from patients who have taken Naproxen have shown spurious elevation in total bilirubin levels. 82 Because ethnic data is not always readily available, this report includes an eGFR for both -Americans and non- Americans. The National Kidney Disease Education Program (NKDEP) does not endorse the use of the MDRD equation for patients that are not between the ages of 18 and 70, are , have extremes of body size, muscle mass, or nutritional status, or are non- or non-. According to the National Kidney Foundation, irrespective of diagnosis, the stage of the disease is based on the level of kidney function: Stage Description GFR(mL/min/1.73 m(2)) 1 Kidney damage with normal or decreased GFR 90 2 Kidney damage with mild decrease in GFR 60-89 3 Moderate decrease in GFR 30-59 4 Severe decrease in GFR 15-29 5 Kidney failure <15 (or dialysis) 83 CHOLESTEROL INTERPRETATION: Desirable: Less than 200 MG/DL Borderline-High Risk: 200-239 MG/DL High-Risk: 240 MG/DL and over 84 HDL INTERPRETATION: Undesirable: High Risk: Less than 40 MG/DL Desirable: Low Risk: Greater than 60 MG/DL 85 LDL INTERPRETATION: Low Risk Optimal Level: LDL Less than 100 MG/DL Near or Above Optimal: LDL 100-129 MG/DL Borderline High Risk: LDL 130-159 MG/DL High Risk: LDL 160-189 MG/DL Very High Risk: LDL Greater than 189 MG/DL 86 Anion gap measurement may be of limited value in the presence of any alkalosis, especially in a combined acid base disorder. . 87 Note change in reference range as of 05/05/08. The change was based on recommendations from the [place] [employer]. 88 Please note change in reference range effective 08 . 89 A metabolite of Naproxen, O-desmethylnaproxen, has been shown to interfere with the [facility] method for measuring total bilirubin. Samples from patients who have taken Naproxen have shown spurious elevation in total bilirubin levels. 90 Because ethnic data is not always readily available, this report includes an eGFR for both -Americans and non- Americans. The National Kidney Disease Education Program (NKDEP) does not endorse the use of the MDRD equation for patients that are not between the ages of 18 and 70, are , have extremes of body size, muscle mass, or nutritional status, or are non- or non-. According to the National Kidney Foundation, irrespective of diagnosis, the stage of the disease is based on the level of kidney function: Stage Description GFR(mL/min/1.73 m(2)) 1 Kidney damage with normal or decreased GFR 90 2 Kidney damage with mild decrease in GFR 60-89 3 Moderate decrease in GFR 30-59 4 Severe decrease in GFR 15-29 5 Kidney failure <15 (or dialysis) 91 CHOLESTEROL INTERPRETATION: Desirable: Less than 200 MG/DL Borderline-High Risk: 200-239 MG/DL High-Risk: 240 MG/DL and over 92 HDL INTERPRETATION: Undesirable: High Risk: Less than 40 MG/DL Desirable: Low Risk: Greater than 60 MG/DL 93 LDL INTERPRETATION: Low Risk Optimal Level: LDL Less than 100 MG/DL Near or Above Optimal: LDL 100-129 MG/DL Borderline High Risk: LDL 130-159 MG/DL High Risk: LDL 160-189 MG/DL Very High Risk: LDL Greater than 189 MG/DL 94 Anion gap measurement may be of limited value in the presence of any alkalosis, especially in a combined acid base disorder. . 95 Note change in reference range as of 05/05/08. The change was based on recommendations from the [place] [employer]. 96 Please note change in reference range effective 08 . 97 A metabolite of Naproxen, O-desmethylnaproxen, has been shown to interfere with the [facility] method for measuring total bilirubin. Samples from patients who have taken Naproxen have shown spurious elevation in total bilirubin levels. 98 CHOLESTEROL INTERPRETATION: Desirable: Less than 200 MG/DL Borderline-High Risk: 200-239 MG/DL High-Risk: 240 MG/DL and over 99 HDL INTERPRETATION: Undesirable: High Risk: Less than 40 MG/DL Desirable: Low Risk: Greater than 60 MG/DL 100 LDL INTERPRETATION: Low Risk Optimal Level: LDL Less than 100 MG/DL Near or Above Optimal: LDL 100-129 MG/DL Borderline High Risk: LDL 130-159 MG/DL High Risk: LDL 160-189 MG/DL Very High Risk: LDL Greater than 189 MG/DL 101 Anion gap measurement may be of limited value in the presence of any alkalosis, especially in a combined acid base disorder. . 102 Note change in reference range as of 05/05/08. The change was based on recommendations from the [place] [employer]. 103 Please note change in reference range effective 08 . 104 FAX RESULTS TO HAN BYRNE MD AT FAX NUMBER [phone] 105 Anion gap measurement may be of limited value in the presence of any alkalosis, especially in a combined acid base disorder. . 106 Note change in reference range as of 05/05/08. The change was based on recommendations from the [place] [employer]. 107 Please note change in reference range effective 08 . Procedures Date Code Description Status 06/17/2018 75959 ECHO Transthorasic Realtime 2D W Doppler & Color Flow Hosp Completed 10/20/2014 64830 Left Heart Cath. Incl S/I Coronaries, Angio S/I V Gram If Completed Done 10/17/2014 90618 EKG Tracing & Interpretation Completed 09/30/2014 64924 Treadmill Interp/Report Only Completed 09/30/2014 59747 Stress Test Supervsn W/Out I/R Completed 08/30/2014 40869 ECHO Transthoracic, Real-Time 2D With Doppler And Color Completed Flow 07/15/2014 71980 EKG Tracing & Interpretation Completed 03/17/2014 66250 EKG Tracing & Interpretation Completed 02/11/2014 39751 EKG Tracing & Interpretation Completed 01/12/2014 73011 Holter Monitoring 24 HR New Completed 01/10/2014 28650 ECHO Transthoracic, Real-Time 2D With Doppler And Color Completed Flow 12/30/2013 72955 EKG Tracing & Interpretation Completed 12/24/2013 34766 EKG, Interpretation Only Completed 12/23/2013 83250 EKG, Interpretation Only Completed 12/22/2013 26885 EKG, Interpretation Only Completed 12/21/2013 74977 Cardioversion Completed 12/21/2013 94629 EKG, Interpretation Only Completed 12/21/2013 05838 ECHO Transthoracic, Real-Time 2D With Doppler And Color Completed Flow 12/16/2013 21195 EKG Tracing & Interpretation Completed 12/04/2013 28945 Cardioversion Completed 07/01/2013 40891 ECHO Transthoracic, Real-Time 2D With Doppler And Color Completed Flow 06/21/2013 54476 EKG Tracing & Interpretation Completed 02/18/2013 98372 EKG Tracing & Interpretation Completed 12/03/2012 19094 EKG Tracing & Interpretation Completed 12/01/2012 65770 Cardioversion Completed 10/15/2012 65431 EKG Tracing & Interpretation Completed 09/03/2012 54355 EKG Tracing & Interpretation Completed 08/26/2012 98964 EKG Tracing & Interpretation Completed 08/17/2012 69604 EKG Tracing & Interpretation Completed 08/14/2012 77089 EKG Tracing & Interpretation Completed 08/14/2012 02798 Cardioversion Completed 06/22/2012 50018 Mobile Cardiovascular Telemetry Over 24 HR Up To 30 Days Completed 06/05/2012 59469 EKG Tracing & Interpretation Completed 05/12/2012 14151 Mobile Cardiovascular Telemetry Over 24 HR Up To 30 Days Completed 04/30/2012 27261 Holter Monitoring 24 HR New Completed 03/13/2012 35315 EKG Tracing & Interpretation Completed 02/26/2012 01902 EKG Tracing & Interpretation Completed 01/17/2012 83146 RT & LT HRT Cath W/Inj For Ventriculography I/S And Interp Completed If Don 01/17/2012 75589 EKG, Interpretation Only Completed 01/15/2012 91582 EKG Tracing & Interpretation Completed 12/04/2011 65794 EKG Tracing & Interpretation Completed 11/18/2011 45295 ECHO Stress Test Incl Perf Contiuous ekg Monitoring W/Phys Completed Superv 10/31/2011 87606 ECHO Transthoracic, Real-Time 2D With Doppler And Color Completed Flow 10/23/2011 23182 Color Flow Doppler/Interp & Reprt Completed 10/23/2011 60203 Pulse Wave/Continuous-Interp.RPT Completed 10/23/2011 50625 Echocardiography, Transesophageal, Real Time W/Image 2D Completed W/W/O M-M 10/23/2011 41785 EKG, Interpretation Only Completed 10/23/2011 38867 Cardioversion Completed 07/10/2011 37668 EKG Tracing & Interpretation Completed 04/08/2011 45033 ECHO Transthoracic, Real-Time 2D With Doppler And Color Completed Flow 02/04/2011 79539 EKG Tracing & Interpretation Completed 02/04/2011 96968 EKG, Interpretation Only Completed 12/18/2010 68244 Treadmill Interp/Report Only Completed 12/18/2010 05760 Stress Test Supervsn W/Out I/R Completed 11/07/2010 59421 ECHO Transthoracic, Real-Time 2D With Doppler And Color Completed Flow 11/06/2010 16290 EKG, Interpretation Only Completed 05/03/2010 50382 EKG Tracing & Interpretation Completed 04/04/2010 66105 Cardioversion Completed 04/04/2010 73434 Echocardiography, Transesophageal, Real Time W/Image 2D Completed W/W/O M-M 04/04/2010 00907 Pulse Wave/Continuous-Interp.RPT Completed 04/04/2010 15857 Color Flow Doppler/Interp & Reprt Completed 12/13/2009 09697 EKG Tracing & Interpretation Completed 05/17/2009 94177 EKG Tracing & Interpretation Completed 03/07/2009 84874 EKG Tracing & Interpretation Completed 01/04/2009 07211 EKG Tracing & Interpretation Completed 12/05/2008 38207 ECHO Stress Test Incl Perf Contiuous ekg Monitoring W/Phys Completed Superv 12/01/2008 15372 EKG Tracing & Interpretation Completed 11/30/2008 36947 Holter Monitor Completed 11/27/2008 21208 ECHO Transthorasic Realtime 2D W Doppler & Color Flow Hosp Completed Encounters Type Date Location Provider Dx Diagnosis Office Visit 06/18/2018 [facility] Justa Okeefe MD G45.9 Transient 7:00a cerebral ischemic attack, unspecified I16.0 Hypertensive urgency R29.6 Repeated falls Z79.01 care home (current) use of anticoagulants Office Visit 06/18/2018 [facility] Deepali G45.9 Transient 11:46a Assoc,diana Hope NP cerebral ischemic Hospitalists attack, unspecified I48.91 Unspecified atrial fibrillation E11.9 Type 2 diabetes mellitus without complications E03.9 Hypothyroidism, unspecified Office Visit 06/17/2018 [facility] Okeefe G45.9 Transient 7:00a Clinic cerebral ischemic attack, unspecified I16.0 Hypertensive urgency R29.6 Repeated falls Z79.01 care home (current) use of anticoagulants Office Visit 06/17/2018 [facility] Ellie Ortiz, I63.9 Cerebral 11:46a Assdiana wilkins M.D. infarction, Hospitalists unspecified I48.91 Unspecified atrial fibrillation E11.9 Type 2 diabetes mellitus without complications E03.9 Hypothyroidism, unspecified Office Visit 06/16/2018 Neurohospitalist Justa Okeefe G45.9 Transient 7:00a Clinic cerebral ischemic attack, unspecified I16.0 Hypertensive urgency R29.702 Nihss score 2 Z79.01 care home (current) use of anticoagulants Office Visit 06/16/2018 11:45a [facility] Espinoza I63.9 Cerebral Assoc,diana Oquendo M.D. infarction, Hospitalists unspecified I48.91 Unspecified atrial fibrillation E11.9 Type 2 diabetes mellitus without complications E03.9 Hypothyroidism, unspecified Office Visit 10/25/2014 3:40p [facility] Qutaybeh S. 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 786.09 Dyspnea & Respiratory Abnormalities Other 414.01 Coronary Atherosclerosis [place] Office Visit 09/30/2014 9:30a [facility] Maurice Castellano 786.05 Shortness Of Cornelius Brenner Breath Office Visit 07/15/2014 3:20p [facility] Maurice Castellano 780.4 Dizziness & Cornelius Brenner Giddiness 327.23 Obstructive Sleep Apnea Adult & Pediatric 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 786.09 Dyspnea & Respiratory Abnormalities Other 135 Sarcoidosis Office 07/05/2014 Pulmonology And Cir[place] 327.23 Obstructive Sleep Visit 3:15p Sleep Services SULMA Humphrey, Apnea Adult & Of [facility] RN, ASSISTANT SCIENTIST-BC Pediatric Office 04/28/2014 KAYLA Peter 794.31 Electrocardiogram Visit 3:00p Cardiology (ECG) (EKG) Abnormal 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 250.90 Diabetes W/ Unspec Compl Type II Or Unspec Controlled 427.31 Atrial Fibrillation 424.0 Mitral Valve Disorder Office Visit 03/17/2014 11:00a [facility] Maurice Castellano 424.0 Mitral Valve Cornelius Brenner Disorder 427.31 Atrial Fibrillation 250.90 Diabetes W/ Unspec Compl Type II Or Unspec Controlled 401.1 Hypertension Benign Office Visit 01/20/2014 2:30p KAYLA Peter 427.31 Atrial Cardiology Fibrillation Office Visit 12/30/2013 2:00p [place] Maurice Castellano 427.31 Atrial Cardiology Cornelius Brenner Fibrillation 244.9 Hypothyroidism Other Unspec 250.90 Diabetes W/ Unspec Compl Type II Or Unspec Controlled 401.1 Hypertension Benign 424.0 Mitral Valve Disorder 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 Office Visit 12/25/2013 [facility] Ellie Ortiz, 427.31 Atrial 3:43p Assoc,diana Shields Fibrillation Hospitalists 244.9 Hypothyroidism Other Unspec 250.90 Diabetes W/ Unspec Compl Type II Or Unspec Controlled Office Visit 12/25/2013 Ildefonso Hannon 427.31 Atrial Fibrillation 10:14a Cardiology Kenny Gee M.D., [facility] FACC, FASNC Office Visit 12/24/2013 [place] Charmaine Ulrich 794.31 Electrocardiogram 10:46a Cardiology Gagan (ECG) (EKG) Abnormal MJelena 427.31 Atrial Fibrillation 401.1 Hypertension Benign 272.4 Hyperlipidemia Other Unspec Office Visit 12/24/2013 [facility] Ellie Hohn, 427.31 Atrial 3:42p diana Duke M.D. Fibrillation Hospitalists 244.9 Hypothyroidism Other Unspec 250.90 Diabetes W/ Unspec Compl Type II Or Unspec Controlled Office 12/23/2013 [place] Carlos Eduardoybeh S. 794.31 Electrocardiogram Visit 10:38a Cardiology Cornelius Farah (ECG) (EKG) Abnormal 427.31 Atrial Fibrillation 424.0 Mitral Valve Disorder Office Visit 12/23/2013 [facility] Ellie Hohn, 427.31 Atrial 3:42p diana Duke M.D. Fibrillation Hospitalists 244.9 Hypothyroidism Other Unspec 250.90 Diabetes W/ Unspec Compl Type II Or Unspec Controlled Office 12/22/2013 [place] Homabessy S. 794.31 Electrocardiogram Visit 9:47a Alondra Farah M.D. (ECG) (EKG) Abnormal 427.31 Atrial Fibrillation 401.1 Hypertension Benign Office Visit 12/22/2013 [facility] Ellie Hohn, 427.31 Atrial 3:42p diana Duke M.D. Fibrillation Hospitalists 244.9 Hypothyroidism Other Unspec 250.90 Diabetes W/ Unspec Compl Type II Or Unspec Controlled Office Visit 12/21/2013 [facility] Ellie Hohn, 427.31 Atrial 3:41p diana Duke M.D. Fibrillation Hospitalists 244.9 Hypothyroidism Other Unspec 250.90 Diabetes W/ Unspec Compl Type II Or Unspec Controlled Office Visit 12/21/2013 [facility] Miguel Ángel Kimble 427.31 Atrial 11:17a Of Benitez Yanez M.D. Fibrillation Office Visit 12/20/2013 [facility] Carlos 427.31 Atrial 3:40p Assdiana wilkins Fibrillation Hospitalists N.P. 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 Office Visit 12/04/2011 10:20a Alexandru Castellano 394.1 Rheumatic Mitral Cardiology Cornelius Brenner Insufficiency 424.0 Mitral Valve Disorder 394.0 Mitral Stenosis Office Visit 11/18/2011 10:30a Alexandru Castellano 394.1 Rheumatic Mitral Cardiology Cornelius Brenner Insufficiency 427.31 Atrial Fibrillation 250.00 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 414.01 Coronary Atherosclerosis [place] Office Visit 10/23/2011 2:22p Alexandru Castellano 427.31 Atrial Cardiology Cornelius Brenner Fibrillation 427.32 Atrial Flutter 394.0 Mitral Stenosis 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 250.00 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 Office Visit 10/22/2011 Alexandru Castellano 427.32 Atrial Flutter 2:31p Cardiology Cornelius Brenner Office Visit 07/10/2011 Alexandru Castellano 414.01 Coronary 11:40a Cardiology Cornelius Brenner Atherosclerosis [place] 427.31 Atrial Fibrillation 401.1 Hypertension Benign 272.0 Hypercholesterolemia Pure Office Visit 02/04/2011 1:40p Alexandru Castellano 427.31 Atrial Cardiology Cornelius Brenner Fibrillation 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 401.9 Hypertension Unspec Office Visit 11/06/2010 10:47a [place] Alondra Castellano 250.00 Diabetes Cornelius Brenner Mellitus W/O Compl Type II Or Unspec Controlled 427.31 Atrial Fibrillation Office Visit 05/03/2010 10:40a [place] Maurice Castellano 427.31 Atrial Cardiology Cornelius Brenner Fibrillation 401.1 Hypertension Benign 414.01 Coronary Atherosclerosis [place] 250.00 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 Office Visit 04/04/2010 12:30p [place] Maurice Castellano 427.31 Atrial Cardiology Cornelius Brenner Fibrillation 414.01 Coronary Atherosclerosis [place] 394.2 Mitral Stenosis W/ Insufficiency 250.00 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 Office Visit 12/13/2009 10:40a [place] Maurice Castellano 427.31 Atrial Cardiology Cornelius Brenner Fibrillation 401.1 Hypertension Benign 414.01 Coronary Atherosclerosis [place] Office Visit 05/17/2009 10:10a [place] Maurice Castellano 427.31 Atrial Cardiology Cornelius Brenner Fibrillation 401.1 Hypertension Benign 414.01 Coronary Atherosclerosis [place] 250.00 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 Office Visit 03/07/2009 9:30a [facility] Nurse Visit 427.31 Atrial Fibrillation cc 401.1 Hypertension Benign 414.01 Coronary Atherosclerosis [place] Office Visit 02/09/2009 9:40a [facility] Maurice Castellano 250.00 Diabetes Cornelius Brenner Mellitus W/O Compl Type II Or Unspec Controlled 427.31 Atrial Fibrillation 401.1 Hypertension Benign 414.01 Coronary Atherosclerosis [place] Office Visit 01/04/2009 9:10a [facility] Maurice Castellano 250.00 Diabetes Cornelius Brenner Mellitus W/O Compl Type II Or Unspec Controlled 427.31 Atrial Fibrillation 401.1 Hypertension Benign 414.01 Coronary Atherosclerosis [place] Plan of Treatment Future Appointment(s):12/17/2018 11:00 am - Lukas Cedeno MD at [facility] [id number]/05/2019 8:30 am - Virgilio Baugh M.D. 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
--- NOTE | 2018-09-25 14:54 | ED ---
Neurological HPI - HPI Summary HPI Summary: This patient is a 83 year old F brought in by EMS with a chief complaint of stroke symptoms since 13:30. At about 13:00, the patient noticed facial droop, LEGGETT, and slurred speech. Denies fever. She was brought in as a code carmichael at 14: 17. The patient rates the pain 8/10 in severity. Upon arrival at the ED, no facial droop is detected. The doctor first saw the patient at 14:19. She was taken to get a CT at 14:22. She returned at 14:31. NIH: 1 for extinction on the left side - History of Current Complaint Chief Complaint: EDAltMentalStatus Stated Complaint: POSSIBEL CODE CARMICHAEL Time Seen by Provider: 09/25/18 14:22 Hx Obtained From: Patient Onset/Duration: Sudden Onset Pain Intensity: 8 Pain Scale Used: 0-10 Numeric Character: Impaired Speech Aggravating: Headaches Associated Signs and Symptoms: Positive: Impaired Speech - Additional Pertinent History Primary Care Physician: NELY - Allergy/Home Medications Allergies/Adverse Reactions: Allergies Allergy/AdvReac Type Severity Reaction Status Date / Time prednisone Allergy See Comment Verified 06/16/18 14:07 Home Medications: Home Medications Albuterol HFA INHALER* [Ventolin HFA Inhaler*] 2 puff INH Q4H PRN 09/25/18 [ History Confirmed 09/25/18] Aspirin EC TAB* [Ecotrin EC Low Dose 81 MG*] 81 mg PO DAILY 09/25/18 [History Confirmed 09/25/18] Balsalazide Sodium CAP(NF) [Colazal CAP(NF)] 1,500 mg PO BID 09/25/18 [History Confirmed 09/25/18] Carvedilol TAB* [Coreg TAB*] 25 mg PO BID WITH MEALS 09/25/18 [History Confirmed 09/25/18] Dulaglutide (NF) [Trulicity (NF)] 0.75 mg SUBCUT WEEKLY 09/25/18 [History Confirmed 09/25/18] Insulin Glargine,Hum.rec.anlog [Michaelaglmaribel Phelan U-100] 15 unit SUBCUT QAM 09/25 [History Confirmed 09/25/18] Lansoprazole SOLUTAB* [Prevacid Solutab*] 30 mg SL DAILY 09/25/18 [History Confirmed 09/25/18] Mometasone 220 MCG MDI * [Asmanex 220 MCG MDI *] 2 puff INH BID 09/25/18 [ History Confirmed 09/25/18] Mometasone NASAL (NF) [Nasonex (NF)] 2 spray BOTH NARES BID 09/25/18 [History Confirmed 09/25/18] Rivaroxaban TAB(*) [Xarelto 20 mg] 20 mg PO DAILY 09/25/18 [History Confirmed ] Spironolactone TAB* [Aldactone TAB*] 25 mg PO DAILY 09/25/18 [History Confirmed 09/25/18] glipiZIDE TAB* [Glucotrol TAB*] 10 mg PO BID 09/25/18 [History Confirmed ] metFORMIN* [Glucophage 500 MG TAB *] 500 mg PO BID 09/25/18 [History Confirmed 09/25/18] PMH/Surg Hx/FS Hx/Imm Hx Endocrine/Hematology History: Reports: Hx Diabetes, Hx Thyroid Disease - HYPOTHYROID, Hx Anemia - SLIGHTLY Denies: Hx Bone Marrow Disease, Hx Sickle Cell Disease Cardiovascular History: Reports: Hx Auto Implanted Cardiovert Defib - 2014, Hx Coronary Artery Disease, Hx Hypercholesterolemia, Hx Hypertension, Hx Valvular Heart Disease - MITRAL VALVE REPLACEMENT 01/2012, Other Cardiovascular Problems/ Disorders - cardiac ablation X2, afib,MVR Respiratory History: Reports: Hx Asthma, Hx Pneumonia, Hx Sleep Apnea - CPAP GI History: Reports: Hx Gastroesophageal Reflux Disease, Other GI Disorders - UNCERATIVE COLITIS- IN REMISSION Musculoskeletal History: Reports: Hx Arthritis - HANDS,ELBOWS,BACK,KNEES Sensory History: Reports: Hx Contacts or Glasses - glasses, Hx Glaucoma Denies: Hx Hearing Aid Opthamlomology History: Reports: Hx Contacts or Glasses - glasses, Hx Glaucoma - Surgical History Surgery Procedure, Year, and Place: mitral valve replacement, cardiac ablation x2; hysterectomy 1975, left breast cyst removal 1975, tonsillectomy, Hx Anesthesia Reactions: No Infectious Disease History: No Infectious Disease History: Denies: Traveled Outside the [place] in Last 30 Days - Family History Known Family History: Positive: Hypertension - Social History Alcohol Use: None Substance Use Type: Reports: None Smoking Status (MU): Never Smoked Tobacco Review of Systems Negative: Fever Neurological: Other - facial droop Positive: Headache, Slurred Speech All Other Systems Reviewed And Are Negative: Yes Physical Exam - Summary Physical Exam Summary: Appearance: The patient is well-nourished in no acute distress and in no acute pain. Skin: The skin is warm and dry and skin color reflects adequate perfusion. HEENT: The head is normocephalic and atraumatic. The pupils are equal and reactive. The conjunctivae are clear and without drainage. Nares are patent and without drainage. Mouth reveals moist mucous membranes and the throat is without erythema and exudate. The external ears are intact. The ear canals are patent and without drainage. The tympanic membranes are intact. Neck: The neck is supple with full range of motion and non-tender. There are no carotid bruits. There is no neck vein distension. Respiratory: Chest is non-tender. Lungs are clear to auscultation and breath sounds are symmetrical and equal. Cardiovascular: Heart is regular rate and rhythm. There is no murmur or rub auscultated. There is no peripheral edema and pulses are symmetrical and equal. Abdomen: The abdomen is soft and non-tender. There are normal bowel sounds heard in all four quadrants and there is no organomegaly palpated. Musculoskeletal: There is no back tenderness noted. Extremities are non-tender with full range of motion. There is good capillary refill. There is no peripheral edema or calf tenderness elicited. Neurological: Patient is alert and oriented to person, place and time. The patient has symmetrical motor strength in all four extremities. Cranial nerves are grossly intact. Deep tendon reflexes are symmetrical and equal in all four extremities. Psychiatric: The patient has an appropriate affect and does not exhibit any anxiety or depression. NIH: 1 for extinction on the left side GCS: 15 Triage Information Reviewed: Yes Vital Signs On Initial Exam: Initial Vitals Temp Pulse Resp BP Pulse Ox 98.1 F 72 16 150/96 96 09/25/18 14:44 09/25/18 14:44 09/25/18 14:44 09/25/18 14:44 09/25/18 14:44 Vital Signs Reviewed: Yes Diagnostics - Vital Signs Vital Signs Temp Pulse Resp BP Pulse Ox 09/25/18 14:44 98.1 F 72 16 150/96 96 - Laboratory Result Diagrams: 09/25/18 14:45 09/25/18 14:45 Lab Statement: Any lab studies that have been ordered have been reviewed, and results considered in the medical decision making process. - Radiology CXR Radiology Interpretation Completed By: Radiologist Summary of Radiographic Findings: Stigmata of obstructive lung disease and cardiac disease. No acute pulmonary or cardiac process evident. ED physician has reviewed this report. - CT Brain CT Interpretation Completed By: Radiologist Summary of CT Findings: Chronic ischemic White matter change with no evidence of intracranial mass or hemorrhage is noted. ED physician has reviewed this report - EKG 15:38 Cardiac Rate: NL - 85 bpm EKG Rhythm: Atrial Fibrillation NIH Scale - NIH Scale Level of Consciousness: Alert/Keenly Responsive Ask Patient the Month and His/Her Age: Both Correct Ask Pt to Open/Close Eyes and Staffing Director/Release Non-Paretic Hand: Both Correctly Best Gaze (Only Horizontal Eye Movement): Normal Visual Field Testing: No Visual Loss Facial Paresis-Pt to Smile & Close Eyes or Grimace Symmetry: Normal/Symmetrical Motor Function - Right Arm: No Drift-Holds 10 Seconds Motor Function - Left Arm: No Drift-Holds 10 Seconds Motor Function - Right Leg: No Drift-Holds 10 Seconds Motor Function - Left Leg: No Drift-Holds 10 Seconds Limb Ataxia-Must be out of Proportion to Weakness Present: Absent Sensory (Use Pinprick to Test Arms/Legs/Trunk/Face): Normal Best Language (Describe Picture, Name Items): No Aphasia Dysarthria (Read Several Words): Normal Extinction and Inattention: Inattention Total Score: 1 Course/Dx - Course Course Of Treatment: Ms. Anderson presented by EMS as a code carmichael. The only thing I found on my initial NIH stroke scale was a mild extinction on the right. Nevertheless the code was continued and she immediately went to CT scan. She returned to room 17. Dr. Okeefe met her and began his evaluation in the CT scanner and continued in room 17. At that point she was complaining of a headache and a the only thing he found was some dysarthria. He recommended continued workup and admission to the hospitalists service. I spoke with who agreed to evaluate her. - Diagnoses Provider Diagnoses: CVA (cerebral vascular accident) - Physician Notifications Discussed Care Of Patient With: Justa Okeefe Time Discussed With Above Provider: 15:05 Instructed by Provider To: Admit As Inpatient Discharge - Sign-Out/Discharge Documenting (check all that apply): Patient Departure - admission - Discharge Plan Condition: Fair Disposition: ADMITTED TO [facility] Referrals: Vanessa Gómez MD [Primary Care Provider] - - Billing Disposition and Condition Condition: FAIR Disposition: Admitted to [facility] - Attestation Statements Document Initiated by Renetta: Yes Documenting Scribe: Ish Colin Provider For Whom Krystae is Documenting (Include Credential): Chato Pruitt MD Scribe Attestation: IIsh, scribed for Chato Pruitt MD on 09/25/18 at 1747. Scribe Documentation Reviewed: Yes Provider Attestation: The documentation as recorded by the Ish sosa accurately reflects the service I personally performed and the decisions made by me, Chato Pruitt MD Status of Scribe Document: Viewed Consult Consult: Discussed patient care at 15:[address] Guzman, hospitalist, and they recommended admission
[2018-09-25 14:59] LABS: ABS Basophils 0 10^3/ul (0-0.2); ABS Eosinophils 0.1 10^3/ul (0-0.6); ABS Lymphocytes 2.2 10^3/ul (1.0-4.8); ABS Monocytes 0.8 10^3/ul (0-0.8); ABS Neutrophils 4.5 10^3/ul (1.5-7.7); ABS Nucleated RBC 0 10^3/ul; Eosinophil % 1.5 %; Hematocrit 26 % (35-47); Hemoglobin 8.7 g/dl (12.0-16.0); Lymphocyte % 29.3 %; Mean Corpuscular HGB Conc 34 g/dl (31-36); Mean Corpuscular Hemoglobin 29 pg (27-31); Mean Corpuscular Volume 86 fL (80-97); Mean Platelet Volume 7.4 fL (7.4-10.4); Nucleated Red Blood Cells % 0; Platelet Count 235 10^3/ul (150-450); Red Blood Count 2.99 10^6/ul (4.00-5.40); Red Cell Distribution Width 17 % (10.5-15); White Blood Count 7.6 10^3/ul (3.5-10.8)
[2018-09-25] MEDS ORDERED: Acetaminophen TAB* 325 MG PO ONE (14:59)
[2018-09-25] MEDS ORDERED: Magnesium Sulfate 1 GM IV* 1 GM/100 ML BAG IV ONE ×2 (14:59→15:00)
[2018-09-25 15:13] LABS: Activated Partial Thrombo Time 28.4 seconds (26.0-36.3); INR 1.28 (0.77-1.02)
[2018-09-25 15:26] LABS: Albumin 4.2 g/dL (3.2-5.2); Albumin/Globulin Ratio 1.5 (1-3); BUN/Creatinine Ratio 21.2 (8-20); Calcium 9.7 mg/dL (8.6-10.3); EGFR Non-African American 36.6 (>60); Globulin 2.8 g/dL (2-4); HDL Cholesterol 44.5 mg/dL; Total Bilirubin 0.3 mg/dL (0.2-1.0)
[2018-09-25] MEDS ORDERED: ED ONCE IVPB ONE (16:00)
[2018-09-25] MEDS ORDERED: MAGNESIUM SULFATE 2 GM IVPB ONE (16:00)
[2018-09-25 17:08] LABS: C Reactive Protein 8.59 mg/L (<8.01)
[2018-09-25 17:30] LABS: Erythrocyte Sed Rate 48 mm/Hr (0-40)
[2018-09-25 18:03] LABS: Urine Appearance Clear; Urine Bilirubin Negative (Negative); Urine Blood Negative (Negative); Urine Color Straw; Urine Glucose 2+(150 mg/dL) (Negative); Urine Ketones Negative (Negative); Urine Nitrite Negative (Negative); Urine Protein Negative (Negative); Urine Specific Gravity 1.009 (1.010-1.030); Urine Urobilinogen Negative (Negative)
[2018-09-25] MEDS ORDERED: Albuterol HFA INHALER* 8 gm MDI INH PRN (18:22)
[2018-09-25] MEDS ORDERED: Dextrose 50% Syringe 50 ML* 25 GM/50 ML SYRINGE IV PUSH PRN (18:28)
--- NOTE | 2018-09-25 18:52 | CONS ---
CONSULTATION REPORT: DATE OF CONSULT: 09/25/18 CONSULTING PROVIDER: Dr. Chato Pruitt. REASON FOR CONSULT: Stroke like symptoms. CHIEF COMPLAINT: Headache. HISTORY OF PRESENT ILLNESS: Mrs. Sonal Anderson is an 83-year-old female with a complicated medical history who is known to me from a previous admission on 11/02. In June 2018, the patient presented with falling towards the left side. She was diagnosed with possible left cerebellar TIA. The patient has a past medical history of hypertension; dyslipidemia; diabetes mellitus, type 2; atrial fibrillation, on Xarelto; valvular heart disease, status post mitral valve replacement; pacemaker/defibrillator implanted in 2014, who has an MRI compatible pacemaker, but has cardiac leads that are not compatible with MRI. Therefore, we were unable to obtain an MRI during the June admission. However, her symptoms resolved. I did change the Plavix that she was taking to aspirin to reduce her risk of any possible complications including bleeding on Plavix and Xarelto. Her blood glucose during the previous admission on June 2018 was over 500 and it seems like after correcting that blood glucose, her symptoms slowly improved. Therefore, again she was diagnosed with possible TIA, possible metabolic causes of her neurological disturbance. However, today, the patient was in normal state of health. She does complain of chronic headaches, which she gets every other day for years. She was walking in [place] with her brother shopping when approximately at 1-1:30 when she went home, she noticed a sudden onset of left frontal headache. The headache was 8/10 in severity. The headache did not radiate. It was a sharp pulsating pain. It was associated with photophobia, but no phonophobia or nausea. Sneezing, straining, or coughing did not worsen the headache. She did have some lacrimation associated with the headache. According to her [id number] , the patient had mild left facial droop and slurred speech that was new and very similar to a previous admission for possible stroke. A stroke call was activated. The patient was immediately assessed in the emergency room. A stat CT head showed no evidence of acute intracranial abnormality, but there was some evidence of an old lacunar stroke specifically located at the left frontal periventricular area. She has no evidence of intracranial hemorrhage. A CTA was not done today as it was recently done on June 2018 and it showed no large vessel stenosis or occlusion in the intracranial or extracranial vasculature. The patient stated complete compliance to Xarelto. Her main complaints today are the headaches. PAST MEDICAL HISTORY: Mitral valve prosthesis in 2011, coronary artery disease , stent in 2014, pacemaker/defibrillator placement in 2014, ablation for atrial fibrillation, tonsillectomy, breast biopsy, hysterectomy, left bundle branch block, ischemic cardiomyopathy. HOME MEDICATIONS: 1. Multivitamin. 2. Losartan 25 mg p.o. daily. 3. Atorvastatin 80 mg p.o. daily. 4. Tikosyn 125 mcg p.o. b.i.d. 5. Levothyroxine 12.5 mcg p.o. q.a.m. 6. Spironolactone 25 mg p.o. daily. 7. Xarelto 20 mg p.o. daily. 8. Lansoprazole 30 mg daily. 9. Metformin 500 mg p.o. b.i.d. 10. Nasonex 2 sprays both nares b.i.d. 11. Insulin 15 units subcutaneous in the morning. 12. Glipizide 10 mg p.o. b.i.d. 13. Carvedilol 25 mg p.o. b.i.d. 14. Aspirin 81 mg daily. 15. Albuterol 2 puffs inhale every 4 hours p.r.n. ALLERGIES: Questionable allergy to PREDNISONE. SOCIAL HISTORY: The patient denied any alcohol or tobacco use. The patient lives with other family members. REVIEW OF SYSTEMS: A 14-point review of systems was obtained and otherwise negative except for what was mentioned in the HPI. PHYSICAL EXAM: Vitals: Temperature 98.1, pulse of 89, respiratory rate of 17, oxygen saturation of 97%, blood pressure of 151/72. General: Slightly ill- appearing elderly female, in no acute distress. Head: Normal superficial temporalis artery pulsation, but slight tenderness in the left frontotemporal region. Eyes: Conjunctivae/corneas are clear. She does have lacrimation. Undilated fundoscopic examination revealed sharp disc margin with no areas of disc edema. Neck is supple and symmetrical with no carotid bruit. Negative Brudzinski and Kernig's signs bilaterally. Lungs are clear to auscultation bilaterally. Cardiovascular: Regular rate and rhythm. Pacemaker/defibrillator in place. Extremities: Normal range of motion with no cyanosis, no hammertoes. Skin: No skin lesions or lacerations. Psych: Affect is broad and normal mood. The patient was having trouble with naming objects. She did require her bifocal lenses, but still was having trouble naming. Neurological Examination: The patient is awake, alert, and oriented to person, place, time, and general circumstances. She does have slight mild dysarthria. Cranial Nerves: Normal confrontation testing bilaterally. Pupils are mid range and reactive to light. Normal consensual response. Sensation is intact on the forehead, cheeks, and jaw region bilaterally. There is no facial droop. She is able to hear throughout the history process. Symmetrical palatal elevation. Normal strength against resistance. Tongue is symmetrical and midline with no atrophy or fasciculation. Motor Strength: She is able to elevate all 4 extremities against resistance and gravity. There is no focal area of weakness. Reflexes: 1+ throughout with 0 at the ankles bilaterally. Flexor plantar response bilaterally. Sensation is intact to light touch throughout. Coordination: Normal [id number]-ca-[id number] bilaterally. Gait and Station: Narrow based. NIH stroke scale of 2, 1 for dysarthria and 1 for naming difficulty. DIAGNOSTIC STUDIES/LAB DATA: Labs, imaging, and diagnostic testing. CT head as mentioned above. Labs are WBC of 7.6, hemoglobin 8.7, hematocrit of 26, platelet count of 235. INR 1.28. Sodium 137, potassium 5, chloride 104, BUN 29 , creatinine 1.37. Cholesterol 131, LDL is 38. ESR and C-reactive protein were ordered. ASSESSMENT: Mrs. Sonal Anderson is an 83-year-old female with a complicated medical history that includes diabetes mellitus, type 2; atrial fibrillation, on Xarelto; coronary artery disease, on aspirin, who presented with new symptoms of headaches and reported slurred speech and facial droop. I was unable to appreciate a facial droop; however, she does have mild slurred speech and naming difficulty. The patient's main complaint today are headaches. 1. Headaches. There is a concern that the patient given her age may have possible giant cell arteritis. She has no visual disturbance. We will check an ESR and CRP. The patient is allergic to PREDNISONE. This will be need to be confirmed and recheck, especially if the ESR is high and we would need to start her on PREDNISONE for possibly suspected giant cell arteritis. However, she has had chronic headaches in the past, which sounds like tension like headaches that improve with acetaminophen. Therefore, other differential diagnosis include tension-like headache and rarely especially for her age cluster headaches given the lacrimation. I do not suspect subarachnoid hemorrhage given the negative CT head within the first few hours of her symptoms onset. 2. Slurred speech and reported left facial droop. It is unclear and unlikely that the patient would have a stroke on both Xarelto and aspirin, but it is not impossible. She cannot have an MRI due to the pacer wires and the pacemaker is compatible, but not the wires. We will continue therapy and control her blood pressure and blood glucose given there is no other interventions to be done. She is not a candidate for IV TPA given she is on Xarelto. She is not a candidate for thrombectomy because I do not suspect she has large vessel occlusion, especially given her low NIH stroke scale. 3. Chronic atrial fibrillation, on Xarelto. 4. Hypertension. 5. Remote history of lacunar infarct. 6. Diabetic polyneuropathy. 7. History of falls, this is multifactorial and it is likely related to her history of lacunar stroke as well as the polyneuropathy. 8. Coronary artery disease. The patient was supposed to have clopidogrel- resistant genetic testing to be done as an outpatient. The patient's daughter in law will obtain records from the trimmer and reinforcer's office. RECOMMENDATIONS: Please start magnesium 2 g x1 for her headache. Please do a swallow evaluation. If she passes, provide acetaminophen 650 mg x1. Please order ESR and CRP. Continue neuro checks every 4 hours. Admit to the hospitalists service. No need for DVT prophylaxis as she is on Xarelto. Consult speech therapist, PT/OT. Keep her blood glucose less than 200. Allow for slight permissive hypertension, but less than systolic blood pressure less than 160 since she is on anticoagulation therapy. TIME SPENT: Sixty minutes of critical care time was spent interviewing the patient, examining the patient, reviewing the previous history as well as current history and discussing the treatment plan with the patient, her daughter -in-law, and Dr. Pruitt at bedside. [id number]/[facility] #: [id number] AMINA
[2018-09-25 19:01] LABS: TSH (Thyroid Stimulating Horm) 3.92 mcIU/mL (0.34-5.60)
[2018-09-25] MEDS: Acetaminophen TAB* 325 MG PO PRN (19:55)
[2018-09-25] MEDS: BALSALAZIDE SODIUM 750 MG PO SCH (21:21)
[2018-09-25] MEDS: Insulin LISPRO* 1 UNITS UNIT SUBCUT SCH (21:22)
[2018-09-25] MEDS: Dofetilide CAP* 125 MCG PO SCH (21:22)
--- NOTE | 2018-09-26 00:17 | HP ---
AMENDED REPORT NOW INCLUDES DESIGNATED COSIGNER CC: Dr. Morse * HISTORY AND PHYSICAL: DATE OF ADMISSION: 09/25/18. PRIMARY CARE PROVIDER: Dr. Gómez.* ATTENDING WHILE IN THE HOSPITAL: Dr Hill, (DICTATED BY IRWIN VALENCIA, COMMUNICATIONS DEPARTMENT CHAIR) OUTPATIENT SENIOR FINANCE MANAGER: Dr. Morse with [facility]. CHIEF COMPLAINT: Gait disturbances, facial droop, headache, slurred speech. HISTORY OF PRESENT ILLNESS: Ms. Anderson is an 83-year-old female, who was brought in by EMS with a chief complaint of stroke symptoms since about 1300. Per report, around 1300, the patient was noted to have a facial droop, complaining of headache, and also had slurred speech. In addition, her brother who was with her noticed a gait disturbance. She was brought to the emergency room and a Code Brown was called. Per ED report, upon arrival to the ED, there was no facial droop detected. The patient was evaluated further with a brain CT , which revealed chronic ischemic white matter change with no evidence of intracranial mass or hemorrhage noted. The patient was further evaluated by Dr. Okeefe from Neurology, who also was unable to appreciate a facial droop, but did note mild slurred speech and naming difficulty. Due to the patient's symptoms and previous medical history, we were asked to evaluate for admission. PAST MEDICAL HISTORY: 1. Diabetes. 2. Thyroid disorder. 3. Anemia. 4. Defib/pacer. 5. CAD. 6. History of ND x1. 7. Hypertension. 8. Hyperlipidemia. 9. Mitral valve replacement. 10. Ablation x2. 11. Asthma. 12. Pneumonia. 13. Sleep apnea with CPAP. 14. GERD. 15. Ulcerative colitis. 16. Arthritis. 17. TIA. MEDICATIONS: 1. Aldactone 25 mg p.o. daily. 2. Xarelto 20 mg p.o. daily. 3. Multivitamin 1 tab p.o. daily. 4. Prevacid SoluTab 30 mg p.o. daily. 5. Metformin 500 mg p.o. b.i.d. 6. Nasonex 2 sprays both nares b.i.d. 7. Asmanex 2 puffs inhalation b.i.d. 8. Losartan 25 mg p.o. daily. 9. Levothyroxine 12.5 mg p.o. q.a.m. 10. Insulin glargine 15 units subcu q.a.m. 11. Glipizide 10 mg p.o. b.i.d. 13. Trulicity 0.75 mg subcu weekly. 14. Tikosyn 125 mg p.o. b.i.d. 15. Coreg 25 mg p.o. b.i.d. with meals. 16. Colazal 1500 mg p.o. b.i.d. 17. Calcium carbonate/vitamin D3 one tab p.o. daily. 18. Lipitor 80 mg p.o. daily. 19. Aspirin 81 mg p.o. daily. 20. Albuterol inhaler 2 puffs inhalation q.4 hours p.r.n. ALLERGIES: PREDNISONE: The patient's son, who is a bacteriology technician reports that the patient had a reaction to "very high doses" of PREDNISONE. He reports his reaction was her converting into AFib. FAMILY HISTORY: Mother had a history of diabetes. Father had a history of atrial fibrillation. SOCIAL HISTORY: The patient denies tobacco use. Reports she smoked socially as a teenager. The patient denies alcohol use. The patient denies drug use. The patient is retired. The patient lives alone with her dog. Her adult children are involved in her care. The patient does her ADLs independently, and her son and pnfyblcw-on-ryl check on her frequently. REVIEW OF SYSTEMS: Constitutional: No fevers, no anorexia. Cardiac: No chest pain, no edema, no palpitations, no shortness of breath with exertion. Respiratory: No cough, no hemoptysis, no shortness of breath. GI: No nausea or vomiting, no diarrhea, no abdominal pain. : No gross hematuria. No dysuria. No increase in frequency. Neuro: No focal weakness or sensory loss. The patient does report trouble finding words. Eyes: No visual complaints. ENT: No difficulty swallowing, no pain with swallowing, no nasal congestion. Musculoskeletal: No arthralgias or myalgias. Skin: No rashes or lesions. Psych: No psychosis, anxiety or depression. PHYSICAL EXAMINATION GENERAL APPEARANCE: Alert, pleasant, in no distress. VITAL SIGNS: BP 150/96, HR 72, RR 16, O2 saturation 96% on room air, temp 98.1. HEENT: Eyes: PERRLA. EOMs intact. Conjunctivae pink. ENT: External ears and nose are normal. Lips within normal limits. Dentition good. Oropharynx is clear. Mucous membranes moist without lesions. LYMPHATIC: No cervical or supraclavicular lymphadenopathy. RESPIRATORY: No accessory muscle use. Lungs are clear to auscultation. CARDIAC: S1, S2 present. No murmurs, rubs or gallops. ABDOMEN: Soft, nontender, nondistended. Bowel sounds x4. EXTREMITIES: No lower extremity edema. Pedal pulses 2+ bilaterally. MUSCULOSKELETAL: No clubbing or cyanosis. No abnormalities, full range of motion. SKIN: No rashes or abnormalities. NEUROLOGIC: Cranial nerves II through XII are intact. Moves all extremities. Sensation intact to light touch. Coordination intact. No slurred speech noted. The patient is observed having difficulty finding correct words at times and/or recalling history. PSYCH: Alert and oriented x3. No anxiety or depression. DIAGNOSTIC STUDIES/LAB DATA: WBC 7.6, hemoglobin 8.7, hematocrit 26, platelets 235,000. ESR 48. Chemistry: Sodium 137, potassium 5.0, chloride 104 , BUN 29, creatinine 1.37, glucose 135, CRP 1.59. Urine specific gravity 1.009. Positive for glucose. All others are negative. EKG: Atrial fibrillation with a rate of 85. Brain CT: Chronic ischemic white matter change with no evidence of intracranial mass or hemorrhages noted. Chest x-ray: Stigmata of obstructive lung disease and no cardiac disease, no acute pulmonary or cardiac process evident. ASSESSMENT AND PLAN: 1. Neuro deficits: The patient was brought in by ambulance due to onset of gait disturbance, slurred speech, headache. As previously mentioned, there is no appreciation of a facial droop by evaluating providers. There is some slurred speech noted. The patient continues to complain of the headache, which is responding mildly to Tylenol. It was also noted that the patient is having some difficulty naming/finding words/recalling history. The patient was evaluated by Neurology and we very much appreciate his input. 2. CRP and ESR are mildly elevated. The patient is nontender to the left side of her temporal area. 3. TIA: Transient ischemic attack remains on the differential. It should be mentioned that the patient was previously on Plavix and had a transient ischemic attack in June and therefore, was switched to aspirin. The patient' s [id number] states that she contacted the patient's airplane cabin attendant and they state the patient did not have the genetic tests completed regarding Plavix. The patient underwent a brain CT as mentioned above. She did not undergo a CTA as this was completed in June and showed no large vessel stenosis or occlusion. In addition in June the patient had a TTE and with negative bubble study. We were hoping to get an MRI, but per reports from [facility], the patient's pacemaker is MRI compatible, but the leads are not. I personally contacted [facility], who verified that the patient's atrial lead is not compatible with an MRI. 4. Headaches: As previously mentioned, the patient's rated headache as an 8/ 10 on presentation. After Tylenol she reports headache as 6/10 Differential includes tension headache and cluster headache as she reported lacrimation to Dr. Okeefe. 5. Diabetes: I will hold the patient's oral medications to have tighter control of her diabetes and placed her on sliding scale insulin. In addition, I will hold the patient's long-acting insulin of 15 units q.a.m. until I can trend her blood sugars further. She will be placed on a consistent carb diet with thickened liquids until she is evaluated by Speech. 6. Thyroid disorder: Continue the patient's levothyroxine 12.5 mcg p.o. daily. The patient's TSH is 3.92. 7. Anemia: The patient is noted to be normocytic anemia at 8.7 and 26. This appears to be around the patient's baseline. I have ordered a stool guaiac to rule out any other causes. 8. Coronary artery disease: The patient is to continue aspirin and statin. 9. Hypertension: We are to allow some permissive hypertension but keep systolic blood pressure less than 160. I have continued the patient's Coreg. I have held her Aldactone and losartan as she is near goal systolic blood pressure. Those could be added back in as the patient tolerates. 10. High cholesterol: The patient to continue statin. 11. Mitral valve replacement: The patient will be on telemetry and is to continue cardiac medications. 12. Atrial fibrillation: The patient will be on telemetry. She is to continue Xarelto at a renal dose of 15 mg p.o. daily. In addition, the patient to continue Tikosyn 125 mg p.o. b.i.d. 13. Asthma: The patient will have Ventolin inhaler 2 puffs inhalation q.4 hours p.r.n. 14. Sleep apnea: I have ordered the patient use of CPAP. 15. Ulcerative colitis: The patient may continue Colazal as previously ordered. 16. FEN: The patient passed a nursing bedside swallow evaluation, therefore she has been taking pills without difficulty. I have ordered the patient a consistent carb diet with thickened liquids until she can be evaluated by Speech Therapy. 17. Code status: The patient is a full code. 18. DVT prophylaxis: The patient is currently on Xarelto. 19. Therapy: I have ordered PT/OT to evaluate the patient. 20. Disposition: The patient will remain on inpatient status for further evaluation and treatment. I have discussed this plan with my attending, Dr. Hill, who agrees with my plan. TIME SPENT: Approximately 60 minutes were spent on this admission, greater than half of the time was spent [id number] with the patient completing my assessment and obtaining history IRWIN VALENCIA, ELVIE [id number]/[facility] #: [id number] AMINA
[2018-09-26] MEDS: Acetaminophen TAB* 325 MG PO PRN ×2 (02:35→08:38)
[2018-09-26 05:19] LABS: ABS Basophils 0 10^3/ul (0-0.2); ABS Eosinophils 0.1 10^3/ul (0-0.6); ABS Lymphocytes 2.5 10^3/ul (1.0-4.8); ABS Monocytes 0.8 10^3/ul (0-0.8); ABS Nucleated RBC 0 10^3/ul; Eosinophil % 1.6 %; Hematocrit 23 % (35-47); Hemoglobin 7.6 g/dl (12.0-16.0); Lymphocyte % 29.8 %; Mean Corpuscular HGB Conc 33 g/dl (31-36); Mean Corpuscular Hemoglobin 28 pg (27-31); Mean Corpuscular Volume 84 fL (80-97); Mean Platelet Volume 7.3 fL (7.4-10.4); Nucleated Red Blood Cells % 0; Platelet Count 209 10^3/ul (150-450); Red Blood Count 2.72 10^6/ul (4.00-5.40); Red Cell Distribution Width 17 % (10.5-15); White Blood Count 8.5 10^3/ul (3.5-10.8)
[2018-09-26] MEDS: Levothyroxine TAB* 25 MCG TAB PO SCH (05:26)
[2018-09-26 05:39] LABS: Anion Gap 5 mmol/L (2-11); Blood Urea Nitrogen 22 mg/dL (6-24); CO2 Carbon Dioxide 25 mmol/L (22-32); Calcium 9.1 mg/dL (8.6-10.3); Chloride 109 mmol/L (101-111); Cholesterol 117 mg/dL; EGFR Non-African American 44.4 (>60); Glucose 108 mg/dL (70-100); HDL Cholesterol 40.4 mg/dL; LDL Cholesterol 58 mg/dL; Magnesium 2.2 mg/dL (1.9-2.7); Potassium 4.3 mmol/L (3.5-5.0); Sodium 139 mmol/L (135-145); Triglycerides 95 mg/dL
[2018-09-26] MEDS ORDERED: NS 0.9% 1000 ML* 1,000 ML IV SCH (08:15)
[2018-09-26] MEDS: Insulin LISPRO* 1 UNITS UNIT SUBCUT SCH ×4 (08:32→21:44)
[2018-09-26] MEDS: Carvedilol TAB* 25 MG PO SCH ×2 (08:33→18:21)
[2018-09-26] MEDS: Calcium/Vitamin D TAB 250/125* TAB PO SCH (08:34)
[2018-09-26] MEDS: Aspirin EC TAB* 81 MG TAB.EC PO SCH (08:34)
[2018-09-26] MEDS: Multivitamins/Minerals TAB PO SCH (08:34)
[2018-09-26] MEDS: Pantoprazole TAB * 40 MG TAB PO SCH (08:35)
[2018-09-26] MEDS: Atorvastatin* 80 MG TAB PO SCH (08:35)
[2018-09-26] MEDS: BALSALAZIDE SODIUM 750 MG PO SCH ×2 (08:36→21:44)
[2018-09-26] MEDS: Dofetilide CAP* 125 MCG PO SCH ×2 (08:39→21:44)
[2018-09-26] MEDS ORDERED: Rivaroxaban TAB(*) 15 MG PO SCH (09:00)
[2018-09-26 09:28] LABS: Corrected Retic Count 0.7 % (0.5-1.5); Hematocrit for Retic CNT 23 % (35-47); Immature Retic Fraction 0.53; RBC Retic Count 2.76 10^6/ul (4.6-6.2)
[2018-09-26 09:35] LABS: Iron 24 ug/dL (50-212); Total Iron Binding Capacity 388 mcg/dL (250-450); Transferrin 277 mg/dL (203-362)
[2018-09-26] MEDS ORDERED: Cyclobenzaprine TAB* 10 MG PO ONE (09:37)
[2018-09-26] MEDS ORDERED: HYDROcodone/ACETAMIN 5-325 MG* 1 TAB PO PRN (09:39)
[2018-09-26 09:57] LABS: Ferritin 8.9 ng/mL (11-307)
[2018-09-26 10:00] LABS: Folate > 20.00 ng/mL (>3.99)
[2018-09-26] MEDS ORDERED: HYDROcodone/ACETAMIN 5-325 MG* 1 TAB ONE (10:38)
[2018-09-26] MEDS ORDERED: Iodixanol* (CONTRAST) 320 MG/ML 100 ML SDV IV ONE (11:49)
[2018-09-26] MEDS ORDERED: Iodixanol 320 (CONTRAST) 100 ML SDV IV ONE ×2 (12:21→13:06)
--- NOTE | 2018-09-26 12:48 | PN ---
Subjective Date of Service: 09/26/18 Length of Stay: 1 Days Interval History: Admission H&P as well as Neurology consult reviewed. The patient is an 83 year old, admitted previously in June 2018 with possible TIA, work up at that time was negative for acute stroke, although the patient cannot have MRI due to PM with incompatible leads. She has multiple risk factors including DM, AF on Xarelto and Coumadin, HTN. She notes being compliant with her medications. She does have a long history of headaches, typically frontal in nature which she states she gets quite frequently. Yesterday, after returning home from [facility] , she developed an intense LEGGETT, left side above the eye, deep, sharp, 8/10, no vision loss but phonophobia. Valsalva did not worsen symptoms. Her family felt she might have a left facial droop and slurred speech was was similar to prior presentation for TIA. Head CT in the ER showed no acute changes. She was given conservative therapy and Magnesium. There was some concern for TA although ESR, CRP only slightly elevated and she denies any tenderness in the voodoo area. This morning, she reports a similar headache, rated 7/10, dull aching, no photophonia or phonophobia. She denies any neck pain or tenderness and denies any vision loss, N/V or focal numbness, tingling weakness. The nurse noted that she seemed slightly confused this am and could not recall three words she had been given. She is alert and oriented with me this morning. The nurse also reported some peripheral vision loss bilaterally. Otherwise, there have been no acute changes overnight and her headache persists Objective Active Medications: Acetaminophen (Tylenol Tab*) 650 mg PO Q4H PRN PRN Reason: FEVER/PAIN Last Admin: 09/26/18 08:38 Dose: 650 mg Albuterol (Ventolin Hfa Inhaler*) 2 puff INH Q4H PRN PRN Reason: SHORTNESS OF BREATH Aspirin (Aspirin Ec Tab*) 81 mg PO DAILY [facility] Last Admin: 09/26/18 08:34 Dose: 81 mg Atorvastatin Calcium (Lipitor*) 80 mg PO DAILY [facility] Last Admin: 09/26/18 08:35 Dose: 80 mg Balsalazide (Colazal Cap(Nf)) 1,500 mg PO BID [facility]; Protocol Last Admin: 09/26/18 08:36 Dose: Not Given Calcium/Vitamin D (Oscal D Tab 250/125*) 1 tab PO DAILY [facility] Last Admin: 09/26/18 08:34 Dose: 1 tab Carvedilol (Coreg Tab*) 25 mg PO BID WITH MEALS [facility] Last Admin: 09/26/18 08:33 Dose: 25 mg Dextrose (D50w Syringe 50 Ml*) 12.5 gm IV PUSH .FOR FS < 60 - SS PRN PRN Reason: FS < 60 Dofetilide (Tikosyn Cap*) 125 mcg PO BID [facility] Last Admin: 09/26/18 08:39 Dose: 125 mcg Insulin Human Lispro (Humalog*) 0 units SUBCUT ACHS [facility]; Protocol Last Admin: 09/26/18 08:32 Dose: 2 unit Levothyroxine Sodium (Synthroid Tab*) 12.5 mcg PO 0600 [facility] Last Admin: 09/26/18 05:26 Dose: 12.5 mcg Multivitamins/Minerals (Theragran/Minerals Tab*) 1 tab PO DAILY [facility] Last Admin: 09/26/18 08:34 Dose: 1 tab Pantoprazole Sodium (Protonix Tab (Nf)) 40 mg PO DAILY [facility] Last Admin: 09/26/18 08:35 Dose: 40 mg Rivaroxaban (Xarelto(*)) 15 mg PO DAILY [facility] Last Admin: 09/26/18 08:35 Dose: 15 mg Vital Signs 09/25/18 09/25/18 09/25/18 14:42 14:44 14:46 Temperature 98.1 F Pulse Rate 81 72 75 Respiratory 21 16 20 Rate Blood Pressure 150/96 150/96 (mmHg) O2 Sat by Pulse 96 96 97 Oximetry 09/25/18 09/25/18 09/25/18 15:00 15:17 15:46 Temperature Pulse Rate 79 84 Respiratory 18 17 12 Rate Blood Pressure 151/72 170/67 (mmHg) O2 Sat by Pulse 97 100 Oximetry 09/25/18 09/25/18 09/25/18 16:00 16:16 16:46 Temperature Pulse Rate 76 74 73 Respiratory 12 15 14 Rate Blood Pressure 143/63 129/57 (mmHg) O2 Sat by Pulse 96 100 100 Oximetry 09/25/18 09/25/18 09/25/18 17:00 17:16 17:46 Temperature Pulse Rate 70 74 74 Respiratory 16 16 14 Rate Blood Pressure 135/66 143/60 (mmHg) O2 Sat by Pulse 99 100 100 Oximetry 09/25/18 09/25/18 09/25/18 18:00 18:16 18:46 Temperature Pulse Rate 75 72 70 Respiratory 17 12 18 Rate Blood Pressure 147/89 150/66 (mmHg) O2 Sat by Pulse 100 100 100 Oximetry 09/25/18 09/25/18 09/25/18 18:59 19:15 19:20 Temperature 98.9 F 97.4 F 97.4 F Pulse Rate 77 74 74 Respiratory 16 16 16 Rate Blood Pressure 150/66 166/67 166/67 (mmHg) O2 Sat by Pulse 99 97 97 Oximetry 09/25/18 09/25/18 09/26/18 20:00 23:05 03:10 Temperature 97.9 F 98.2 F Pulse Rate 81 76 Respiratory 16 16 16 Rate Blood Pressure 138/51 121/45 (mmHg) O2 Sat by Pulse 97 99 98 Oximetry 09/26/18 09/26/18 07:41 07:55 Temperature 97.7 F Pulse Rate 73 Respiratory 16 16 Rate Blood Pressure 136/57 (mmHg) O2 Sat by Pulse 92 98 Oximetry Intake and Output Last 24 Hours 09/24/18 09/25/18 09/26/18 09/27/18 06:59 06:59 06:59 06:59 Intake Total 0 360 Balance 0 360 Weight 166 lb Intake: Oral 0 360 Other: Estimated Void Medium # Bowel Movements 1 Estimated Stool Amount Medium # Voids 0 1 Oxygen Devices in Use Now: None Neurology Exam: General: HEENT: Normocephalic/atraumatic, sclera anicteric, mucous membranes moist, no palpable cords in the temples, no pain with palpation, no erythema Neck: Supple, no meningismus, Negative Kernigs Chest: Clear to auscultation bilaterally Cardiovascular: Irreg irreg, no M/G/R Abdomen: Soft, nontender/nondistended Extremities: No clubbing, cyanosis, or edema, skin is warm and dry Neurological Findings: Awake, Alert, Oriented x3, recall of recent and remote events appears intact Speech: fluent without dysarthria, repetition intact, recall intact Cranial Nerve: PEERL, EOM intact, no nystagmus, Mild left lower asymmetry, facial sensation intact, hearing intact to finger rub bilaterally, palate elevates symmetrically, tongue midline, SCM and Trapezius 5/5. VF: On confrontation, she notes some difficulty seeing movement in all visual jose on the right but when I moved my fingers toward the midline, she was unable to see in all right quadrants. Blink is intact to threat. Motor: 5/5 throughout, proximal and distal extremities x4 tone/bulk normal Sensation: intact to LT/PP bilaterally upper and lower extremities Deep Tendon Reflex: 1+ symmetric in the upper/lower extremities, Babinski - down going Finger to nose, rapid alternating movements intact without tremor, no ataxia, past-pointing Gait: Not tested Result Diagrams: 09/27/18 07:14 09/27/18 07:14 Microbiology and Other Data: Microbiology 09/26/18 07:35 Stool Occult Blood ([facility]) - Final Stool Assessment/Plan 83 year old with multiple stroke risk factors including AF on Xarelto and ASA, valvular heart disease s/p MV repair, HTN, DM, Hypercholesterolemia. History of chronic headaches, typically frontal in nature presents with 8/10-->now 7/10 headache over the left eye, negative tenderness in the area. She typically gets a headache every other day responsive to Tylenol. She received Magnesium in the ER without benefit. Family reports possible left facial droop with slurred speech. Exam is generally non-focal with some apparent visual field loss on the right side, difficult exam, and some mild left lower facial weakness. No palpable cords, tenderness or erythema over the left voodoo. ESR , CRP only slightly elevated. 1. Headaches: She has a long history of headaches but this is somewhat atypical for her normal pattern. My suspicion for Temporal Arteritis is very low with only slight elevation in ESR, CRP and no tenderness. She is allergic to steroids but I see no indication to give them at this point. The headaches are not characteristically migrainous in nature and her typical headache pattern is more tension-type in nature. DDX also includes an unusual presentation of TGN is always possible but this would be very atypical and is more diagnosis of exclusion. Tension type headache, although again, atypical given presentation, Hemicrania continua, SUNCT, LUI (reported lacrimation) but treatment for these typically consists of Indomethacin which I would not want to give her due to vascular history and possible TIA. CTA in June was negative for acute issues, my suspicion for aneurysm is very low. Presentation would be very unusual for SAH and initially CT negative (plan to repeat CT today ). My suspicion for infectious cause is very low (afebrile, normal WBC, no meningisms) and there is no indication for LP at this point. I suspect this headache is likely an atypical presentation of her normal headaches. Would treat conservatively. We are limited in what we can give. We could try some low dose narcotic for several doses to see how she responds. Could also consider low dose muscle relaxant fo her headache. 2. TIA/Stroke: Facial droop and question vision loss. She had previously noted left NLF flattening in June. My suspicion for acute stroke is low. Will repeat CT to look for evolution. If negative, continue secondary stroke risk factor reduction. Possible right HH? Could indicate new stroke. Repeat CT pending. Watch BP, DM, follow cholesterol, continue Xarelto and ASA for now
--- NOTE | 2018-09-26 13:14 | PN ---
Subjective Date of Service: 09/26/18 Interval History: Pt c/o left temporal headache, that is now "not so bad". She is nauseated. Feels that her vision is impaired when looking to right. Gait unsteady, leaning to left Had 12 beats of V. tach -asymptomatic Objective Active Medications: Acetaminophen (Tylenol Tab*) 650 mg PO Q4H PRN PRN Reason: FEVER/PAIN Last Admin: 09/26/18 08:38 Dose: 650 mg Albuterol (Ventolin Hfa Inhaler*) 2 puff INH Q4H PRN PRN Reason: SHORTNESS OF BREATH Aspirin (Aspirin Ec Tab*) 81 mg PO DAILY [facility] Last Admin: 09/26/18 08:34 Dose: 81 mg Atorvastatin Calcium (Lipitor*) 80 mg PO DAILY [facility] Last Admin: 09/26/18 08:35 Dose: 80 mg Balsalazide (Colazal Cap(Nf)) 1,500 mg PO BID [facility]; Protocol Last Admin: 09/26/18 08:36 Dose: Not Given Calcium/Vitamin D (Oscal D Tab 250/125*) 1 tab PO DAILY [facility] Last Admin: 09/26/18 08:34 Dose: 1 tab Carvedilol (Coreg Tab*) 25 mg PO BID WITH MEALS [facility] Last Admin: 09/26/18 08:33 Dose: 25 mg Dextrose (D50w Syringe 50 Ml*) 12.5 gm IV PUSH .FOR FS < 60 - SS PRN PRN Reason: FS < 60 Dofetilide (Tikosyn Cap*) 125 mcg PO BID [facility] Last Admin: 09/26/18 08:39 Dose: 125 mcg Insulin Human Lispro (Humalog*) 0 units SUBCUT ACHS [facility]; Protocol Last Admin: 09/26/18 12:42 Dose: 4 unit Iodixanol (Visipaque 320 (Contrast)) 80 ml IV ONCE ONE Stop: 09/26/18 13:07 Last Admin: 09/26/18 13:07 Dose: 80 ml Levothyroxine Sodium (Synthroid Tab*) 12.5 mcg PO 0600 [facility] Last Admin: 09/26/18 05:26 Dose: 12.5 mcg Multivitamins/Minerals (Theragran/Minerals Tab*) 1 tab PO DAILY [facility] Last Admin: 09/26/18 08:34 Dose: 1 tab Pantoprazole Sodium (Protonix Tab (Nf)) 40 mg PO DAILY [facility] Last Admin: 09/26/18 08:35 Dose: 40 mg Rivaroxaban (Xarelto(*)) 15 mg PO DAILY [facility] Last Admin: 09/26/18 08:35 Dose: 15 mg Vital Signs - 8 hr 09/26/18 09/26/18 09/26/18 07:41 07:55 12:59 Temperature 97.7 F Pulse Rate 73 Respiratory 16 16 16 Rate Blood Pressure 136/57 (mmHg) O2 Sat by Pulse 92 98 Oximetry Oxygen Devices in Use Now: None Appearance: 83 yo F in nAD, AAOx3 Eyes: No Scleral Icterus, PERRLA Ears/Nose/Mouth/Throat: NL Teeth, Lips, Gums, Mucous Membranes Moist Neck: NL Appearance and Movements; NL JVP, Trachea Midline Respiratory: Symmetrical Chest Expansion and Respiratory Effort, Clear to Auscultation Cardiovascular: NL Sounds; No Murmurs; No JVD, - - irregular Abdominal: NL Sounds; No Tenderness; No Distention, No Hepatosplenomegaly Lymphatic: No Cervical Adenopathy Extremities: No Edema, No Clubbing, Cyanosis Skin: No Rash or Ulcers, No Nodules or Sclerosis Neurological: Alert and Oriented x 3, - - left facial droop, R hemianopsia, ataxia. Motor 5/5 b/l, speech clear, flat affect Result Diagrams: 09/26/18 05:01 09/26/18 05:01 Microbiology and Other Data: Microbiology 09/26/18 07:35 Stool Occult Blood ([facility]) - Final Stool Assess/Plan/Problems-Billing 83 year old with multiple stroke risk factors including AF on Xarelto and ASA, valvular heart disease s/p MV repair, HTN, DM, Hypercholesterolemia. History of chronic headaches, typically frontal in nature presents with 8/10-->now 7/10 headache over the left eye, negative tenderness in the area. She typically gets a headache every other day responsive to Tylenol. Family reports possible left facial droop with slurred speech. - Patient Problems (1) CVA (cerebral vascular accident) Comment: Appreciate Dr. Baugh's consult . CTA head/neck pending. Continue rivaroxaban/ASA Unable to do MRI due to pacer. Echo with bubble neg in 07/02 cont PT/OT LDL optimal at 58-cont lipitor (2) Atrial fibrillation Comment: - Currently in paced sinus rhythm with occasional PVCs. - Continue rate control with metoprolol (Rate 70s-80s) - Continue rhythm control with dofetilide - Continue anticoagulation with xarelto. CHADS-VASC 9 (3) Diabetes Comment: - Continue sliding scale lispro. Holding metformin/ glipizide .Restart Lantus at a lower home dose (4) Hypothyroid Comment: TSH 3.9. Continue levothyroxine. (5) Chronic systolic (congestive) heart failure Comment: - Pt currently without signs of CHF exacerbation. - Echo from 07/02 showed EF 50-55% with mild-moderate LV hypertrophy, however has previously had severely reduced EF (20-25% in 2015) (6) Ulcerative colitis Comment: Not in exacerbation- Denies N/V/D/Abdominal pain. Cont Balsalazide. (7) Ventricular tachycardia Comment: had 12 beats on 09/26/18, lytes WNL, cont telem. (8) Normocytic anemia Comment: stool heme- liklely ACD, but will tx with iron also (9) DVT prophylaxis Comment: - Pt anticoagulated with Xarelto for Afib Status and Disposition: inpatient
[2018-09-26] MEDS ORDERED: PROCHLORPERAZINE INJ 5 MG/ML 2 ML VIAL IV PRN (14:01)
[2018-09-26] MEDS: Scopolamine 1.5 mg* PATCH TRANSDERM SCH (15:39)
[2018-09-26] MEDS: Insulin GLARGINE(*) 1 UNITS UNIT SUBCUT SCH (15:39)
[2018-09-26] MEDS: Ferrous Sulfate TAB* 325 MG PO SCH (21:44)
[2018-09-27] MEDS: Levothyroxine TAB* 25 MCG TAB PO SCH (05:22)
[2018-09-27 07:38] LABS: ABS Basophils 0 10^3/ul (0-0.2); ABS Eosinophils 0 10^3/ul (0-0.6); ABS Monocytes 0.7 10^3/ul (0-0.8); ABS Neutrophils 6.9 10^3/ul (1.5-7.7); ABS Nucleated RBC 0 10^3/ul; Eosinophil % 0.1 %; Hematocrit 24 % (35-47); Hemoglobin 7.7 g/dl (12.0-16.0); Lymphocyte % 20.6 %; Mean Corpuscular HGB Conc 33 g/dl (31-36); Mean Corpuscular Hemoglobin 27 pg (27-31); Mean Corpuscular Volume 84 fL (80-97); Mean Platelet Volume 7.6 fL (7.4-10.4); Nucleated Red Blood Cells % 0; Platelet Count 210 10^3/ul (150-450); Red Cell Distribution Width 17 % (10.5-15); White Blood Count 9.6 10^3/ul (3.5-10.8)
[2018-09-27] MEDS: Pantoprazole TAB * 40 MG TAB PO SCH (08:21)
[2018-09-27] MEDS: Atorvastatin* 80 MG TAB PO SCH (08:21)
[2018-09-27] MEDS: Insulin LISPRO* 1 UNITS UNIT SUBCUT SCH ×4 (08:21→22:07)
[2018-09-27] MEDS: Carvedilol TAB* 25 MG PO SCH ×2 (08:21→16:53)
[2018-09-27] MEDS: Ferrous Sulfate TAB* 325 MG PO SCH ×2 (08:21→22:07)
[2018-09-27] MEDS: Calcium/Vitamin D TAB 250/125* TAB PO SCH (08:21)
[2018-09-27] MEDS: Multivitamins/Minerals TAB PO SCH (08:21)
[2018-09-27] MEDS: Dofetilide CAP* 125 MCG PO SCH ×2 (08:21→22:07)
[2018-09-27] MEDS: Aspirin EC TAB* 81 MG TAB.EC PO SCH (08:21)
[2018-09-27 08:23] LABS: Calcium 9.6 mg/dL (8.6-10.3); EGFR Non-African American 40.7 (>60); Potassium 4.5 mmol/L (3.5-5.0)
[2018-09-27] MEDS: BALSALAZIDE SODIUM 750 MG PO SCH ×2 (08:24→22:12)
--- NOTE | 2018-09-27 09:28 | PN ---
Subjective Date of Service: 09/27/18 Length of Stay: 2 Days Neurology is following for Headache, stroke Interval History: Overnight she fell, hit her head on the bathroom door, some emesis and bowel movement. She was confused overnight as well. Repeat head CT showed no evidence of hemorrhagic conversion. This morning she seems back to baseline with no real confusion. She notes that her headache is 4/10 down from 7/10 yesterday, remains in the left frontal region. She is unaware of any vision loss on the right side until it is brought to her attention. She denies any new issues or complaints this am. She knows not to get out of bed without assistance and is wearing bed alarm. Xarelto was stopped yesterday due to the size of the posterior stroke. Aspirin was continued CT last night: Stable hypodensity in the left occipital lobe, no hemorrhage. C /W subacute infarct. CTA: Left P4 segment dimunition, no acute occlusion. 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 Objective Active Medications: Acetaminophen (Tylenol Tab*) 650 mg PO Q4H PRN PRN Reason: FEVER/PAIN Last Admin: 09/26/18 08:38 Dose: 650 mg Hydrocodone Bitart/Acetaminophen (Ossian 5-325 Tab*) 1 tab PO Q6H PRN PRN Reason: PAIN Albuterol (Ventolin Hfa Inhaler*) 2 puff INH Q4H PRN PRN Reason: SHORTNESS OF BREATH Aspirin (Aspirin Ec Tab*) 81 mg PO DAILY [facility] Last Admin: 09/27/18 08:21 Dose: 81 mg Atorvastatin Calcium (Lipitor*) 80 mg PO DAILY [facility] Last Admin: 09/27/18 08:21 Dose: 80 mg Balsalazide (Colazal Cap(Nf)) 1,500 mg PO BID [facility]; Protocol Last Admin: 09/27/18 08:24 Dose: Not Given Calcium/Vitamin D (Oscal D Tab 250/125*) 1 tab PO DAILY [facility] Last Admin: 09/27/18 08:21 Dose: 1 tab Carvedilol (Coreg Tab*) 25 mg PO BID WITH MEALS [facility] Last Admin: 09/27/18 08:21 Dose: 25 mg Dextrose (D50w Syringe 50 Ml*) 12.5 gm IV PUSH .FOR FS < 60 - SS PRN PRN Reason: FS < 60 Dofetilide (Tikosyn Cap*) 125 mcg PO BID [facility] Last Admin: 09/27/18 08:21 Dose: 125 mcg Ferrous Sulfate (Ferrous Sulfate Tab*) 325 mg PO BID [facility] Last Admin: 09/27/18 08:21 Dose: 325 mg Heparin Sodium (Porcine) (Heparin Vial(*)) 5,000 units SUBCUT Q8HR [facility] Insulin Glargine (Lantus(*)) 10 units SUBCUT Q24H [facility] Last Admin: 09/26/18 15:39 Dose: 10 unit Insulin Human Lispro (Humalog*) 0 units SUBCUT ACHS [facility]; Protocol Last Admin: 09/27/18 08:21 Dose: 1 unit Levothyroxine Sodium (Synthroid Tab*) 12.5 mcg PO 0600 [facility] Last Admin: 09/27/18 05:22 Dose: 12.5 mcg Multivitamins/Minerals (Theragran/Minerals Tab*) 1 tab PO DAILY [facility] Last Admin: 09/27/18 08:21 Dose: 1 tab Pantoprazole Sodium (Protonix Tab (Nf)) 40 mg PO DAILY [facility] Last Admin: 09/27/18 08:21 Dose: 40 mg Scopolamine (Transderm-Scop 1.5 Mg Patch*) 1 patch TRANSDERM Q72H [facility] Last Admin: 09/26/18 15:39 Dose: 1 patch Vital Signs 09/26/18 09/26/18 09/26/18 11:31 12:59 15:10 Temperature 97.8 F 97.6 F Pulse Rate 72 70 Respiratory 18 16 16 Rate Blood Pressure 123/51 127/50 (mmHg) O2 Sat by Pulse 94 96 Oximetry 09/26/18 09/26/18 09/26/18 16:29 19:31 20:00 Temperature 97.4 F 98.3 F Pulse Rate 71 80 Respiratory 16 16 16 Rate Blood Pressure 159/63 139/48 (mmHg) O2 Sat by Pulse 97 100 100 Oximetry 09/26/18 09/27/18 09/27/18 23:12 00:36 03:17 Temperature 100.0 F 99.5 F 99.8 F Pulse Rate 80 88 Respiratory 16 16 Rate Blood Pressure 141/51 144/51 (mmHg) O2 Sat by Pulse 91 95 Oximetry 09/27/18 09/27/18 09/27/18 04:33 04:49 05:03 Temperature 98.3 F 98.8 F 98.6 F Pulse Rate 83 80 76 Respiratory 16 14 Rate Blood Pressure 177/58 141/50 132/49 (mmHg) O2 Sat by Pulse 94 92 92 Oximetry 09/27/18 09/27/18 09/27/18 05:19 05:47 06:22 Temperature 98.7 F 98.5 F 98.9 F Pulse Rate 78 78 74 Respiratory 16 14 16 Rate Blood Pressure 136/46 132/53 122/50 (mmHg) O2 Sat by Pulse 90 92 91 Oximetry 09/27/18 09/27/18 07:26 07:50 Temperature 99.1 F Pulse Rate 79 Respiratory 18 16 Rate Blood Pressure 140/49 (mmHg) O2 Sat by Pulse 97 Oximetry Intake and Output Last 24 Hours 09/25/18 09/26/18 09/27/18 09/28/18 06:59 06:59 06:59 06:59 Intake Total 0 1799 Output Total 0 Balance 0 1799 Weight 166 lb Intake: IV Fluids 999 NS (0.9%) 999 Oral 0 800 Output: Urine 0 Other: Estimated Void Medium # Bowel Movements 1 Estimated Stool Amount Medium # Voids 0 1 Oxygen Devices in Use Now: None Neurology Exam: General: HEENT: Normocephalic/atraumatic, sclera anicteric, mucous membranes moist Neck: Supple, no meningismus Chest: Clear to auscultation bilaterally Cardiovascular: Regular this am Abdomen: Soft, nontender/nondistended Extremities: No clubbing, cyanosis, or edema, skin is warm and dry Neurological Findings: Awake, Alert, Oriented x3 Speech: fluent without dysarthria, repetition intact, recall intact Cranial Nerve: PEERL, EOM intact, Right HH, no nystagmus, Mild left lower asymmetry, facial sensation intact, hearing intact to finger rub bilaterally, palate elevates symmetrically, tongue midline, SCM and Trapezius 5/5. VF: Motor: No focal weakness, good resistance, tone normal Sensation: intact to LT/PP bilaterally upper and lower extremities Deep Tendon Reflex: 1+ symmetric in the upper/lower extremities, Babinski - down going Finger to nose, rapid alternating movements intact without tremor, no ataxia, past-pointing No neglect Gait: wide based, slow, using walker Result Diagrams: 09/27/18 07:14 09/27/18 07:14 Microbiology and Other Data: Microbiology 09/26/18 07:35 Stool Occult Blood ([facility]) - Final Stool Assessment/Plan 83 year old with multiple stroke risk factors including AF on Xarelto and ASA, valvular heart disease s/p MV repair, HTN, DM, Hypercholesterolemia. History of chronic headaches, typically frontal in nature presents with 8/10--> 7/10-->4 /10 headache over the left eye, negative tenderness in the area. She typically gets a headache every other day responsive to Tylenol. She received Magnesium in the ER without benefit. Family reports possible left facial droop with slurred speech. Exam is generally non-focal with some apparent visual field loss on the right side, difficult exam, and some mild left lower facial weakness. No palpable cords, tenderness or erythema over the left roman catholic. ESR , CRP only slightly elevated. 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 Fall last night with repeat Head CT negative for bleed. Now off of Xarelto. 1. Stroke: New stroke on CT, looks last acute, early subacute. --I discontinued Xarelto yesterday give the relative size of the stroke and the fact that it is posterior circulation. --We will continue ASA for now. --Given the relative narrowing of P4 segment as well as vertebral artery disease , I would allow her blood pressure to run no the higher end of normal: goal 130s /80s. --Continue cholesterol control with goal LDL < 70. --Continue DM control. --She is a non smoker --Plan to repeat Echo to make sure there is no evidence of thrombus --I would hold Xarelto for 2 weeks prior to starting. The patient is aware of the risk of bleeding on Xarelto vs. risk of stroke with A.fib but I think at this point, the risks of Xarelto outweigh the risk off of medication for several weeks. I do not think this stroke is cardioembolic but likely perfusion related. --She will need PT/OT, may be a good candidate for inpatient rehab --If she has any change in her condition, repeat CT to rule out any changes in her stroke 2. Headache: This is improving. I suspect this is an atypical presentation of her normal, baseline headaches. Concern for secondary headache is very low. Would continue conservative management, avoiding narcotics as much as possible. 3. Confusion: Likely some mild multifactorial delirium. No evidence of stroke extension or hemorrhagic conversion. She did get hydrocodone yesterday which may have contributed. --minimize pain meds as much as possible --Bed alarm, ambulate with I will continue to follow along
--- NOTE | 2018-09-27 09:31 | PN ---
Subjective Date of Service: 09/27/18 Interval History: Pt fell last night when she was trying to go to the bathroom. Appeared more confused last night. Repeat CT head -no change. this AM left sided headache is at 4/10. Pt has no more nausea and stated that she ate breakfast. appears much more comfortable Objective Active Medications: Acetaminophen (Tylenol Tab*) 650 mg PO Q4H PRN PRN Reason: FEVER/PAIN Last Admin: 09/26/18 08:38 Dose: 650 mg Hydrocodone Bitart/Acetaminophen ([place] 5-325 Tab*) 1 tab PO Q6H PRN PRN Reason: PAIN Albuterol (Ventolin Hfa Inhaler*) 2 puff INH Q4H PRN PRN Reason: SHORTNESS OF BREATH Aspirin (Aspirin Ec Tab*) 81 mg PO DAILY [facility] Last Admin: 09/27/18 08:21 Dose: 81 mg Atorvastatin Calcium (Lipitor*) 80 mg PO DAILY [facility] Last Admin: 09/27/18 08:21 Dose: 80 mg Balsalazide (Colazal Cap(Nf)) 1,500 mg PO BID [facility]; Protocol Last Admin: 09/27/18 08:24 Dose: Not Given Calcium/Vitamin D (Oscal D Tab 250/125*) 1 tab PO DAILY [facility] Last Admin: 09/27/18 08:21 Dose: 1 tab Carvedilol (Coreg Tab*) 25 mg PO BID WITH MEALS [facility] Last Admin: 09/27/18 08:21 Dose: 25 mg Dextrose (D50w Syringe 50 Ml*) 12.5 gm IV PUSH .FOR FS < 60 - SS PRN PRN Reason: FS < 60 Dofetilide (Tikosyn Cap*) 125 mcg PO BID [facility] Last Admin: 09/27/18 08:21 Dose: 125 mcg Ferrous Sulfate (Ferrous Sulfate Tab*) 325 mg PO BID [facility] Last Admin: 09/27/18 08:21 Dose: 325 mg Heparin Sodium (Porcine) (Heparin Vial(*)) 5,000 units SUBCUT Q8HR [facility] Sodium Chloride (Ns 0.9% 1000 Ml*) 1,000 mls @ 75 mls/hr IV PER RATE [facility] Insulin Glargine (Lantus(*)) 10 units SUBCUT Q24H [facility] Last Admin: 09/26/18 15:39 Dose: 10 unit Insulin Human Lispro (Humalog*) 0 units SUBCUT ACHS [facility]; Protocol Last Admin: 09/27/18 08:21 Dose: 1 unit Levothyroxine Sodium (Synthroid Tab*) 12.5 mcg PO 0600 [facility] Last Admin: 09/27/18 05:22 Dose: 12.5 mcg Multivitamins/Minerals (Theragran/Minerals Tab*) 1 tab PO DAILY [facility] Last Admin: 09/27/18 08:21 Dose: 1 tab Pantoprazole Sodium (Protonix Tab (Nf)) 40 mg PO DAILY [facility] Last Admin: 09/27/18 08:21 Dose: 40 mg Scopolamine (Transderm-Scop 1.5 Mg Patch*) 1 patch TRANSDERM Q72H [facility] Last Admin: 09/26/18 15:39 Dose: 1 patch Vital Signs - 8 hr 09/27/18 09/27/18 09/27/18 03:17 04:33 04:49 Temperature 99.8 F 98.3 F 98.8 F Pulse Rate 88 83 80 Respiratory 16 16 14 Rate Blood Pressure 144/51 177/58 141/50 (mmHg) O2 Sat by Pulse 95 94 92 Oximetry 09/27/18 09/27/18 09/27/18 05:03 05:19 05:47 Temperature 98.6 F 98.7 F 98.5 F Pulse Rate 76 78 78 Respiratory 16 14 Rate Blood Pressure 132/49 136/46 132/53 (mmHg) O2 Sat by Pulse 92 90 92 Oximetry 09/27/18 09/27/18 09/27/18 06:22 07:26 07:50 Temperature 98.9 F 99.1 F Pulse Rate 74 79 Respiratory 16 18 16 Rate Blood Pressure 122/50 140/49 (mmHg) O2 Sat by Pulse 91 97 Oximetry Oxygen Devices in Use Now: None Appearance: 83 yo F in nAD, aAOx3 Eyes: No Scleral Icterus, PERRLA Ears/Nose/Mouth/Throat: NL Teeth, Lips, Gums, Mucous Membranes Moist Neck: NL Appearance and Movements; NL JVP, Trachea Midline Respiratory: Symmetrical Chest Expansion and Respiratory Effort, Clear to Auscultation Cardiovascular: NL Sounds; No Murmurs; No JVD, No Edema Abdominal: NL Sounds; No Tenderness; No Distention Lymphatic: No Cervical Adenopathy Extremities: No Clubbing, Cyanosis Skin: No Rash or Ulcers, No Nodules or Sclerosis Neurological: Alert and Oriented x 3, NL Muscle Strength and Tone, - - left facial droop appears to have resolved, still R homonymous hemianopsia Result Diagrams: 09/27/18 07:14 09/27/18 07:14 Microbiology and Other Data: Microbiology 09/26/18 07:35 Stool Occult Blood ([facility]) - Final Stool Assess/Plan/Problems-Billing 83 year old with multiple stroke risk factors including AF on Xarelto and ASA, valvular heart disease s/p MV repair, HTN, DM, Hypercholesterolemia. History of chronic headaches, typically frontal in nature presents with 8/10-headache over the left eye, negative tenderness in the area. Family reported possible left facial droop with slurred speech. CT shows subacute [employer]ER CVA. - Patient Problems (1) CVA (cerebral vascular accident) Comment: Appreciate Dr. Baugh's consult . CTA head/neck shows left WOOD[employer] IN[employer] REPAIRER CVA. 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 cont ASA. Unable to do MRI due to pacer. Echo with bubble neg in 07/02, as per neurology will repeat. cont PT/OT LDL optimal at 58-cont lipitor (2) Atrial fibrillation Comment: - Currently in paced sinus rhythm with occasional PVCs. - Continue rate control with metoprolol (Rate 70s-80s) - Continue rhythm control with dofetilide (3) Diabetes Comment: - Continue sliding scale lispro. Holding metformin/ glipizide . cont Lantus at a lower than home dose (4) Hypothyroid Comment: TSH 3.9. Continue levothyroxine. (5) Chronic systolic (congestive) heart failure Comment: - Pt currently without signs of CHF exacerbation. - Echo from 07/02 showed EF 50-55% with mild-moderate LV hypertrophy, however has previously had severely reduced EF (20-25% in 2015) (6) Ulcerative colitis Comment: Not in exacerbation- Denies N/V/D/Abdominal pain. Cont Balsalazide. (7) Ventricular tachycardia Comment: had 12 beats on 09/26/18, lytes WNL, cont telem. (8) Normocytic anemia Comment: stool heme- likely ACD, but will tx with iron also (9) DVT prophylaxis Comment: HSQ when off Xarelto Status and Disposition: inpatient
[2018-09-27] MEDS: NS 0.9% 1000 ML* 1,000 ML IV SCH (09:42)
[2018-09-27] MEDS: Acetaminophen TAB* 325 MG PO PRN (11:52)
[2018-09-27] MEDS: Heparin VIAL(*) 5000 UNITS/ML VIAL (FIVE THOUSAND) SUBCUT SCH ×3 (11:52→22:07)
[2018-09-27] MEDS: Insulin GLARGINE(*) 1 UNITS UNIT SUBCUT SCH (14:28)
--- NOTE | 2018-09-27 18:15 | CONS ---
GASTROENTEROLOGY CONSULT: DATE OF CONSULT: 09/27/18 REASON FOR CONSULTATION: Severe iron deficiency anemia with background of GERD and ulcerative colitis. HISTORY: This 83-year-old woman with ulcerative colitis, severe in the past ( her 20s to 50s) with lead pipe type bowel and also GERD, for which she was started on PPI 10 or 12 years ago, was admitted with a posterior circulation CVA. Her Xarelto is being held, though she continues on low-dose aspirin. She was just seen a week ago and a significant anemia noticed with hemoglobin 8.3, MCV 86. An iron panel was sent and her level was 34, saturation 8%. At the time of the office appointment, she had no acute complaint and said her appetite was good and bowel habit is regular daily without any bleeding. She was normal on digital rectal with heme-negative stool. It had been decided some years ago not to have anymore surveillance colonoscopies checking for dysplasia. She has been on PPI for many years. PAST MEDICAL HISTORY: 1. Ulcerative colitis - severe and required multiple courses of prednisone. She was on 6-MP for a number of years and stopped 6 to 7 yrs ago. Her colon is extensively scarred, but no dysplasia has never been demonstrated. 2. GERD - moderate hiatal hernia. on PPI 25 yrs 3. History of hysterectomy. 4. Atrial fibrillation - paroxysmal without syncope. She has been on Xarelto recently. 5. Mitral regurgitation with mitral valve replacement in January 2012. 6. History of cardiac ablation. 7. Tonsillectomy at age 3. 8. Hypothyroidism. 9. AODM. 10. Coronary artery disease - cardiac catheterization in January 2012 showing noncritical lesions under 50% and ejection fraction then of 60%. 11. Sleep apnea in 2009. MEDICATIONS: Currently as an outpatient: 1. Spironolactone. 2. Losartan 25. 3. Carvedilol. 4. Tikosyn 125 b.i.d. 5. Atorvastatin. 6. Aspirin 81. 7. Xarelto 20. 8. Metformin 500 b.i.d. 9. Trulicity 0.75 weekly. 10. Prevacid 30. SOCIAL HISTORY: She is a , living alone. She loves arts and crafts and taking care of her grandchildren and great-grandchildren. Her son, Simon lives nearby and looks in on her frequently. REVIEW OF SYSTEMS: No recent history of vomiting, dysphagia, loss of appetite, weight loss, overt rectal bleeding, hemoptysis, syncope, hepatitis, jaundice, abnormal liver function, or dysuria. EXAM: She is elderly woman, sitting in a chair, mild facial droop on the left. She is alert, oriented. Denies any headache. She is afebrile. Blood pressure 134/47, pulse 75. HEENT exam is otherwise unremarkable. Her lungs are clear. Heart sounds are irregular, but crisp. Abdomen is mildly protuberant , soft and nontender. Rectal: Deferred. Extremities show no edema. Mild weakness, left arm. LABORATORY DATA: Most recent B12 is 559 on 09/26/18. Albumin is 4.2. IMPRESSION: This 83-year-old woman with posterior circulation CVA, had brief inability to eat from this. Currently, doing better with scopolamine patch 1.5 mg. A moderate iron deficiency is present and a cautious oral iron supplement approach is appropriate. While as an inpatient, an intravenous course of iron treatment would be convenient and probably better tolerated than trying to strongly enhance oral intake. Her ulcerative colitis is in full clinical relation and she was heme-negative in the office 10 days ago and heme-negative today and I do not think the background of ulcerative colitis will influence any of treatment decisions currently, although I would try to maintain balsalazide at current doses. My recollection is that prednisone had been given in the past during complex events including severe flares of ulcerative colitis and perception of allergy related to the complexity of those events and not a true allergy. [id number] #: [id number] MTDD
[2018-09-28] MEDS: NS 0.9% 1000 ML* 1,000 ML IV SCH (02:00)
[2018-09-28] MEDS: Levothyroxine TAB* 25 MCG TAB PO SCH (05:19)
[2018-09-28] MEDS: Heparin VIAL(*) 5000 UNITS/ML VIAL (FIVE THOUSAND) SUBCUT SCH ×3 (05:19→21:04)
[2018-09-28 05:34] LABS: Hematocrit 21 % (35-47); Hemoglobin 6.9 g/dl (12.0-16.0)
[2018-09-28 05:53] LABS: BUN/Creatinine Ratio 16.2 (8-20); EGFR Non-African American 38.9 (>60); Potassium 4.1 mmol/L (3.5-5.0)
--- NOTE | 2018-09-28 08:23 | PN ---
Subjective Date of Service: 09/28/18 Length of Stay: 3 Days Neurology is following for headache and stroke Interval History: No new events overnight. Her H/H continues to drop. GI note reviewed. She continues to have significant right sided vision loss, although she is largely unaware of this. She states that her headache is improved from yesterday so she is getting better. No N/V, no dizziness. Ambulating cautiously with assist only. No new focal symptoms overnight. Objective Active Medications: Acetaminophen (Tylenol Tab*) 650 mg PO Q4H PRN PRN Reason: FEVER/PAIN Last Admin: 09/27/18 11:52 Dose: 650 mg Hydrocodone Bitart/Acetaminophen ([place] 5-325 Tab*) 1 tab PO Q6H PRN PRN Reason: PAIN Albuterol (Ventolin Hfa Inhaler*) 2 puff INH Q4H PRN PRN Reason: SHORTNESS OF BREATH Aspirin (Aspirin Ec Tab*) 81 mg PO DAILY [facility] Last Admin: 09/27/18 08:21 Dose: 81 mg Atorvastatin Calcium (Lipitor*) 80 mg PO DAILY [facility] Last Admin: 09/27/18 08:21 Dose: 80 mg Balsalazide (Colazal Cap(Nf)) 1,500 mg PO BID [facility]; Protocol Last Admin: 09/27/18 22:12 Dose: Not Given Calcium/Vitamin D (Oscal D Tab 250/125*) 1 tab PO DAILY [facility] Last Admin: 09/27/18 08:21 Dose: 1 tab Carvedilol (Coreg Tab*) 25 mg PO BID WITH MEALS [facility] Last Admin: 09/27/18 16:53 Dose: 25 mg Dextrose (D50w Syringe 50 Ml*) 12.5 gm IV PUSH .FOR FS < 60 - SS PRN PRN Reason: FS < 60 Dofetilide (Tikosyn Cap*) 125 mcg PO BID [facility] Last Admin: 09/27/18 22:07 Dose: 125 mcg Ferrous Sulfate (Ferrous Sulfate Tab*) 325 mg PO BID [facility] Last Admin: 09/27/18 22:07 Dose: 325 mg Heparin Sodium (Porcine) (Heparin Vial(*)) 5,000 units SUBCUT Q8HR [facility] Last Admin: 09/28/18 05:19 Dose: 5,000 units Sodium Chloride (Ns 0.9% 1000 Ml*) 1,000 mls @ 75 mls/hr IV PER RATE [facility] Last Admin: 09/28/18 02:00 Dose: 75 mls/hr Insulin Glargine (Lantus(*)) 10 units SUBCUT Q24H [facility] 234 [facility] Last Admin: 09/27/18 14:28 Dose: 10 unit Insulin Human Lispro (Humalog*) 0 units SUBCUT ACHS [facility] 234 [facility]S [facility]; Protocol Last Admin: 09/27/18 22:07 Dose: 2 unit Levothyroxine Sodium (Synthroid Tab*) 12.5 mcg PO 0600 [facility] Last Admin: 09/28/18 05:19 Dose: 12.5 mcg Multivitamins/Minerals (Theragran/Minerals Tab*) 1 tab PO DAILY [facility] Last Admin: 09/27/18 08:21 Dose: 1 tab Pantoprazole Sodium (Protonix Tab (Nf)) 40 mg PO DAILY [facility] 234 [facility] Last Admin: 09/27/18 08:21 Dose: 40 mg Scopolamine (Transderm-Scop 1.5 Mg Patch*) 1 patch TRANSDERM Q72H [facility] 234 [facility]S [facility] Last Admin: 09/26/18 15:39 Dose: 1 patch Vital Signs 09/27/18 09/27/18 09/27/18 08:17 11:12 13:54 Temperature 99.5 F 98.3 F Pulse Rate 78 75 74 Respiratory 16 16 Rate Blood Pressure 125/47 134/47 (mmHg) O2 Sat by Pulse 91 95 95 Oximetry 09/27/18 09/27/18 09/27/18 15:17 19:15 20:25 Temperature 98.7 F 99.5 F Pulse Rate 76 76 Respiratory 16 14 14 Rate Blood Pressure 127/50 132/47 (mmHg) O2 Sat by Pulse 94 93 93 Oximetry 09/27/18 09/28/18 23:29 03:39 Temperature 97.8 F 98.6 F Pulse Rate 72 79 Respiratory 20 20 Rate Blood Pressure 147/49 126/41 (mmHg) O2 Sat by Pulse 97 97 Oximetry Intake and Output Last 24 Hours 09/26/18 09/27/18 09/28/18 09/29/18 06:59 06:59 06:59 06:59 Intake Total 0 9 1839 Output Total 0 0 Balance 0 1798 183 Weight 166 lb Intake: IV Fluids 999 1219 NS (0.9%) 999 1219 Oral 0 800 620 Output: Urine 0 0 Other: Estimated Void Medium Medium # Bowel Movements 1 Estimated Stool Amount Medium Medium # Voids 0 1 1 Oxygen Devices in Use Now: None Neurology Exam: General: Pale HEENT: Normocephalic/atraumatic, sclera anicteric, mucous membranes moist Neck: Supple Chest: Clear to auscultation bilaterally Cardiovascular: Regular rate and rhythm without murmurs Abdomen: Soft, nontender/nondistended Extremities: No clubbing, cyanosis, or edema Neurological Findings: Awake, Alert, Oriented x3 Speech: fluent without dysarthria Cranial Nerve: PEERL, EOM intact, Dense HH on the right no nystagmus, mild left lower facial droop, hearing intact to finger rub bilaterally, palate elevates symmetrically, tongue midline Motor: Good resistance throughout, no focal deficits. Tone is normal Sensation: No focal deficits noted Deep Tendon Reflex: Down throughout, symmetric Finger to nose, rapid alternating movements intact without tremor. No resting tremor Result Diagrams: 09/28/18 05:18 09/28/18 05:18 Microbiology and Other Data: Microbiology 09/26/18 07:35 Stool Occult Blood ([facility]) - Final Stool Assessment/Plan 83 year old with multiple stroke risk factors including AF on Xarelto and ASA, valvular heart disease s/p MV repair, HTN, DM, Hypercholesterolemia. History of chronic headaches, typically frontal in nature presents with headache over the left eye 810--> 710-->4/10 -->improved this am, negative tenderness in the area. She typically gets a headache every other day responsive to Tylenol. She received Magnesium in the ER without benefit. Family reports possible left facial droop with slurred speech. Exam is generally non-focal with some apparent visual field loss on the right side, difficult exam, and some mild left lower facial weakness. No palpable cords, tenderness or erythema over the left buddhist. ESR, CRP only slightly elevated. This morning, VF loss on the right more distinct and repeat CT scan yesterday shows late acute, early subacute left HEEL NAIL RASPER stroke. Fall last night with repeat Head CT negative for bleed. Now off of Xarelto. 1. Stroke: left HEEL NAIL RASPER stroke --Off Xarelto, would hold for 2 weeks, continue ASA --Would strive for upper limits of normal with BP --Continue cholesterol control with goal LDL < 70. --Continue DM control. --She is a non smoker --Follow up Echo. If there is evidence of thrombus, we will need to reconsider anticoagulation. --She will need PT/OT, may be a good candidate for inpatient rehab --If she has any change in her condition, repeat CT to rule out any changes in her stroke 2. Headache: Continues to improve. Suspect this was atypical presentation of her baseline, no further workup or intervention at this point. 3. Confusion: Resolved 4. Anemia: Workup and treatment per Primary team. She is to get 2 U of PRBC this am. Would try to keep her Hgb > 8. I will sign off for now but would like to see the patient in follow up as outpatient. Please call me with any new issues or new developments.
[2018-09-28] MEDS: Insulin LISPRO* 1 UNITS UNIT SUBCUT SCH ×4 (08:26→21:03)
[2018-09-28] MEDS: Multivitamins/Minerals TAB PO SCH (08:28)
[2018-09-28] MEDS: Atorvastatin* 80 MG TAB PO SCH (08:28)
[2018-09-28] MEDS: Carvedilol TAB* 25 MG PO SCH ×2 (08:28→18:12)
[2018-09-28] MEDS: Calcium/Vitamin D TAB 250/125* TAB PO SCH (08:28)
[2018-09-28] MEDS: Pantoprazole TAB * 40 MG TAB PO SCH (08:28)
[2018-09-28] MEDS: Aspirin EC TAB* 81 MG TAB.EC PO SCH (08:29)
[2018-09-28] MEDS: Ferrous Sulfate TAB* 325 MG PO SCH ×2 (08:29→21:01)
[2018-09-28] MEDS: BALSALAZIDE SODIUM 750 MG PO SCH ×2 (08:30→21:09)
[2018-09-28] MEDS: Dofetilide CAP* 125 MCG PO SCH ×2 (08:30→21:01)
[2018-09-28] MEDS ORDERED: Spironolactone TAB* 25 MG PO SCH (09:00)
--- NOTE | 2018-09-28 10:47 | ECHO ---
Patient: DANIEL PEARL [facility] Rec#: [id number] : 1935 Date: 09/28/2018 Age: 83y Height: 163 cm / 64.2 in Weight: 75 kg / 165.3 lbs Sex: F BSA: 1.81 Room#: 434 Admit Date#: 09/25/2018 Type: Inpatient Referring: Ellie Ortiz MD Reading: Miguel Ángel Yanez MD Supervisor [employer]: Mirtha Urias,RODRIGOCS,RDMS CC: Vanessa Gómez Transthoracic Echocardiogram Indication: CVA BP: 126/41 HR: 86 Rhythm: NSR with PVCs Findings History: AICD, CAD, NC, HTN, HLD, MV replacement, FRANCES Technical Comments: The study quality is good. Left Ventricle: The left ventricular chamber size is normal. Mild concentric left ventricular hypertrophy is observed. Global left ventricular wall motion and contractility are within normal limits. Left ventricular systolic function is at the lower limits of normal. The estimated ejection fraction is 50-55%. There is abnormal ventricular septal wall motion consistent with right ventricular pacemaker. The assessment of diastolic function is non-diagnostic. Left Atrium: The left atrium is mildly dilated. Right Ventricle: The right ventricular chamber size and systolic function are within normal limits. Right Atrium: The right atrium is mildly dilated. The bubble study is negative. A patent foramen ovale is not demonstrated with color Doppler and agitated contrast. Aortic Valve: The aortic valve is trileaflet. The aortic valve leaflets are mildly thickened. Systolic excursion of the aortic valve is normal. There is aortic annular calcification. There is a trace of aortic regurgitation. Mitral Valve: The mitral valve leaflets are mildly thickened. There is a trace of mitral regurgitation. The mean gradient across the mitral valve is 6 mmHg. The mitral valve area, by pressure half time, is calculated at 2 cm2. A bioprosthetic mitral valve is present. Tricuspid Valve: The tricuspid valve leaflets are normal. There is trace to mild tricuspid regurgitation. There is evidence of mild pulmonary hypertension. Pulmonic Valve: The pulmonic valve appears normal. There is no evidence of pulmonic regurgitation. Pericardium: There is no significant pericardial effusion. Aorta: The aortic root appears normal. There is no dilatation of the aortic arch. Pulmonary Artery: The main pulmonary artery is not well visualized. Venous: The inferior vena cava appears normal in size. There is less than 50% respiratory change in the inferior vena cava dimension. Contrast: Intravenous agitated saline contrast was used to assess intracardiac shunting. Summary: There are no significant changes when compared to the previous study done on 06/17/18 Conclusions Mild concentric left ventricular hypertrophy is observed. Left ventricular systolic function is at the lower limits of normal. The estimated ejection fraction is 50-55%. There is abnormal ventricular septal wall motion consistent with right ventricular pacemaker. The right ventricular chamber size and systolic function are within normal limits. A patent foramen ovale is not demonstrated with color Doppler and agitated contrast. The aortic valve leaflets are mildly thickened. There is a trace of aortic regurgitation. A bioprosthetic mitral valve is present. Normal function There is trace to mild tricuspid regurgitation. There is no significant pericardial effusion. There are no significant changes when compared to the previous study done on 06/17/18 Measurements Name Value Normal Range RVIDd (AP) 2D 2.6 cm (0.9 - 2.6) RVDdMajor (2D) 3.1 cm (2.2 - 4.4) RAd ISD 4CH 5.2 cm (3.4 - 4.9) RA (A4C)W 3.3 cm (2.9 - 4.6) IVSd (2D) 1.1 cm (0.6 - 1) LVPWd (2D) 1 cm (0.6 - 1) LVIDd (2D) 4.9 cm (3.6 - 5.4) LVIDs (2D) 3.5 cm - LV FS (2D) 29 % (25 - 45) Aortic Annulus 2 cm (1.4 - 2.6) Ao root diameter (2D) 3.3 cm (2.1 - 3.5) Ascending Ao 2.8 cm (2.1 - 3.4) Aortic arch 2.3 cm (1.8 - 3.4) LA dimension (AP) 2D 4.6 cm (2.3 - 3.8) LAd ISD 4CH 5 cm (2.9 - 5.3) LA ISD 4CH W 4.6 cm (2.5 - 4.5) Name Value Normal Range LA ESV BP (A/L) index 38 ml/m2 - Name Value Normal Range MV E-wave Vmax 2.1 m/sec - MV deceleration time 238 msec - MV A-wave Vmax 0.9 m/sec - MV E:A ratio 2.3 ratio - LV septal e' Vmax 0.07 m/sec - LV lateral e' Vmax 0.07 m/sec - LV E:e' septal ratio 30 ratio - LV E:e' lateral ratio 30 ratio - Name Value Normal Range AV Vmax 1.8 m/sec - AV VTI 36 cm - AV peak gradient 13 mmHg - AV mean gradient 7 mmHg - LVOT diameter 2 cm - LVOT Vmax 1.3 m/sec - LVOT VTI 27 cm - LVOT peak gradient 7 mmHg - LVOT mean gradient 3 mmHg - STEPHANIA (continuity Vmax) 2.3 cm2 - STEPHANIA (continuity VTI) 2.4 cm2 - KHOA Vmax 0.07 m/sec - Name Value Normal Range MV Vmax 2.3 m/sec - MV VTI 57 cm - MV peak gradient 21 mmHg - MV mean gradient 6 mmHg - MV PHT 113 msec - MVA (PHT) 2 cm2 - MVA (continuity VTI) 1.5 cm2 - Name Value Normal Range TR Vmax 2.8 m/sec - TR peak gradient 32 mmHg - RAP 3 mmHg - RVSP 35 mmHg - IVC diameter 1 cm - Name Value Normal Range PV Vmax 0.9 m/sec - PV peak gradient 3.2 mmHg -
--- NOTE | 2018-09-28 12:32 | PN ---
Subjective Date of Service: 09/28/18 Interval History: pt feels much better. Ataxia and headache are resolving Objective Active Medications: Acetaminophen (Tylenol Tab*) 650 mg PO Q4H PRN PRN Reason: FEVER/PAIN Last Admin: 09/27/18 11:52 Dose: 650 mg Hydrocodone Bitart/Acetaminophen ([place] 5-325 Tab*) 1 tab PO Q6H PRN PRN Reason: PAIN Albuterol (Ventolin Hfa Inhaler*) 2 puff INH Q4H PRN PRN Reason: SHORTNESS OF BREATH Aspirin (Aspirin Ec Tab*) 81 mg PO DAILY [facility] Last Admin: 09/28/18 08:29 Dose: 81 mg Atorvastatin Calcium (Lipitor*) 80 mg PO DAILY [facility] Last Admin: 09/28/18 08:28 Dose: 80 mg Balsalazide (Colazal Cap(Nf)) 1,500 mg PO BID [facility]; Protocol Last Admin: 09/28/18 08:30 Dose: Not Given Calcium/Vitamin D (Oscal D Tab 250/125*) 1 tab PO DAILY [facility] Last Admin: 09/28/18 08:28 Dose: 1 tab Carvedilol (Coreg Tab*) 25 mg PO BID WITH MEALS [facility] Last Admin: 09/28/18 08:28 Dose: 25 mg Dextrose (D50w Syringe 50 Ml*) 12.5 gm IV PUSH .FOR FS < 60 - SS PRN PRN Reason: FS < 60 Dofetilide (Tikosyn Cap*) 125 mcg PO BID [facility] Last Admin: 09/28/18 08:30 Dose: 125 mcg Ferrous Sulfate (Ferrous Sulfate Tab*) 325 mg PO BID [facility] Last Admin: 09/28/18 08:29 Dose: 325 mg Heparin Sodium (Porcine) (Heparin Vial(*)) 5,000 units SUBCUT Q8HR [facility] Last Admin: 09/28/18 05:19 Dose: 5,000 units Ferric Sodium Gluconate Complex 125 mg/ Sodium Chloride 110 mls @ 110 mls/hr IVPB DAILY [facility] Insulin Glargine (Lantus(*)) 10 units SUBCUT Q24H [facility] Last Admin: 09/27/18 14:28 Dose: 10 unit Insulin Human Lispro (Humalog*) 0 units SUBCUT ACHS [facility]; Protocol Last Admin: 09/28/18 12:25 Dose: 2 unit Levothyroxine Sodium (Synthroid Tab*) 12.5 mcg PO 0600 [facility] Last Admin: 09/28/18 05:19 Dose: 12.5 mcg Multivitamins/Minerals (Theragran/Minerals Tab*) 1 tab PO DAILY [facility] Last Admin: 09/28/18 08:28 Dose: 1 tab Pantoprazole Sodium (Protonix Tab (Nf)) 40 mg PO DAILY [facility] Last Admin: 09/28/18 08:28 Dose: 40 mg Scopolamine (Transderm-Scop 1.5 Mg Patch*) 1 patch TRANSDERM Q72H [facility] Last Admin: 09/26/18 15:39 Dose: 1 patch Spironolactone (Aldactone Tab*) 25 mg PO DAILY [facility] Last Admin: 09/28/18 10:10 Dose: 25 mg Vital Signs - 8 hr 09/28/18 09/28/18 09/28/18 07:47 08:00 10:00 Temperature 99.4 F 97.9 F Pulse Rate 70 70 Respiratory 14 14 16 Rate Blood Pressure 149/45 146/51 (mmHg) O2 Sat by Pulse 97 97 95 Oximetry 09/28/18 10:20 Temperature 98.2 F Pulse Rate 69 Respiratory 16 Rate Blood Pressure 147/54 (mmHg) O2 Sat by Pulse 96 Oximetry Oxygen Devices in Use Now: None Appearance: 83 yo F in nAD, aAOx3 Eyes: No Scleral Icterus, PERRLA Ears/Nose/Mouth/Throat: NL Teeth, Lips, Gums, Mucous Membranes Moist Neck: NL Appearance and Movements; NL JVP, Trachea Midline Respiratory: Symmetrical Chest Expansion and Respiratory Effort, Clear to Auscultation Cardiovascular: NL Sounds; No Murmurs; No JVD, RRR Abdominal: NL Sounds; No Tenderness; No Distention Lymphatic: No Cervical Adenopathy Extremities: No Edema, No Clubbing, Cyanosis Skin: No Rash or Ulcers, No Nodules or Sclerosis Neurological: Alert and Oriented x 3, - - mild flattening of left naso-labial fold. R homonymous hemianopsia noted Result Diagrams: 09/28/18 05:18 09/28/18 05:18 Microbiology and Other Data: Microbiology 09/26/18 07:35 Stool Occult Blood ([facility]ISSON) - Final Stool Assess/Plan/Problems-Billing 83 year old with multiple stroke risk factors including AF on Xarelto and ASA, valvular heart disease s/p MV repair, HTN, DM, Hypercholesterolemia. History of chronic headaches, typically frontal in nature presents with 8/10--> 7/10-->4 /10 headache over the left eye, negative tenderness in the area, r hemianopsia , ataxia and posterior circulation ischemic CVA noted on CTA - Patient Problems (1) CVA (cerebral vascular accident) Comment: Appreciate Dr. Baugh's consult . CTA head/neck shows left [employer] CVA. 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 cont ASA. Unable to do MRI due to pacer. Echo with bubble neg in 07/02, as per neurology will repeat today cont PT/OT. clinically she is improving slowly. Still significant vision deficit , but ataxia is resolving. today she had flattening on left nasolabial fold again LDL optimal at 58-cont lipitor (2) Atrial fibrillation Comment: - Currently in paced sinus rhythm with occasional PVCs. - Continue rate control with metoprolol (Rate 70s-80s) - Continue rhythm control with dofetilide (3) Diabetes Comment: - Continue sliding scale lispro. Holding metformin/ glipizide . cont Lantus at a lower than home dose (4) Hypothyroid Comment: TSH 3.9. Continue levothyroxine. (5) Chronic systolic (congestive) heart failure Comment: - Pt currently without signs of CHF exacerbation. - Echo from 07/02 showed EF 50-55% with mild-moderate LV hypertrophy, however has previously had severely reduced EF (20-25% in 2015) (6) Ulcerative colitis Comment: Not in exacerbation- Denies N/V/D/Abdominal pain. Cont Balsalazide. (7) Ventricular tachycardia Comment: had 12 beats on 09/26/18, lytes WNL, cont telem. (8) Normocytic anemia Comment: stool heme- likely ACD, but will tx with iron also. today Hb down to 6/9-at least part of it is due to dilution. appreciate DR. Campuzano 's consult. cont Iron infusion, transfuse 2 U PRBC. (9) DVT prophylaxis Comment: HSQ when off Xarelto (10) BENJAMIN (acute kidney injury) Comment: likely mild dehydration. cont to f/u creat levels. IVF stoped when pt receives transfusion Status and Disposition: inpatient
--- NOTE | 2018-09-28 13:25 | CONS ---
CONSULTATION REPORT: DATE OF CONSULT: 09/28/17 REFERRING PHYSICIAN: Dr. Ortiz. PRIMARY CARE PHYSICIAN: Dr. Gómez. CARDIOLOGY: Dr. Morse at [facility]. NEUROLOGY: Dr. Baugh GI: Dr. Cedeno. HISTORY OF PRESENT ILLNESS: An 83-year-old female who is brought to the emergency room on 09/25/18 with symptoms of stroke. She had facial droop, exacerbation of chronic headache, slurred speech. Her brother also noted a gait disturbance. At presentation, she had a nonfocal exam and a CT scan, which showed chronic white matter changes, but no acute embolic changes. She subsequently had a CT scan on the 09/26/18, which showed a subacute infarct in the left occipital lobe with mild local mass effect and without hemorrhage. She has been managed conservatively. She has had a history of multiple strokes in the past, managed with aspirin and Xarelto 15 mg p.o. twice a day. On admission, Xarelto is now held to reduce risk of hemorrhagic conversion from her acute event. She has long-standing anemia. Review of CBC shows hemoglobin of 12 to 13 at baseline through 2002, going down to 11 to 12 in 2012 to 2014. She had a hemoglobin of 9.1 in June 2018 then 8.3 on 09/17/18, has dropped to 6.9 during this admission. Other red blood cell indices include MCV, which is 84, slightly down from baseline of 93; normal white count and differential and platelet count of 210,000. She has a retic count sent that was 1.4, corrected 0.7. An ESR with 48 and she had extensive serologic studies for anemia done on 09/17/18. At that time, she was found to have B12 of 559, iron saturation at 6%, ferritin 8.9, erythropoietin level of 19, negative SPEP. She has long-standing renal insufficiency with a creatinine of 1.4 to 1.16 through early 2007, increased to 1.2 to 1.3 during this admission. On exam today, the patient denies specific stroke like symptoms. She does report progressive weakness over several weeks. She just did not know why. She also has had chronic headache, which she still has today, which she describe as 6/10 in intensity. PAST MEDICAL HISTORY: 1. Diabetes. 2. Hypothyroidism. 3. Atrial fibrillation and supraventricular tachycardia. 4. She has had ablation twice and now has a defibrillator pacemaker place. She has been on chronic anticoagulation. 5. History of coronary artery disease and myocardial infarction. 6. Mitral valve replacement. 7. Hypertension. 8. Hyperlipidemia. 9. Sleep apnea, on CPAP. 10. GERD. 11. Ulcerative colitis. She is followed by Dr. Cedeno, but decision had been made some time ago to not have repeat colonoscopies. Last procedure report on [facility] system is from 2011. She is on chronic nonsteroidal inflammatories. PAST SURGICAL HISTORY: She denies surgeries. I do not see anything in our system. She had a pacemaker AICD placement in [place]. ALLERGIES: She has had a very poor reaction to prednisone in the past. SOCIAL HISTORY: Alone in the hospital room when I saw her today. She states she never smoked, and does not drink. She is retired and lives alone, takes care of her dog. She does have adult children per history and physical, who are involved in her care. She has been independent of the ADLs. REVIEW OF SYSTEMS: General: She is tired, but denies fevers, chills, or night sweats. Heart: She has chronic atrial fibrillation, she is on anticoagulation. She denies any chest pain or palpitations. Breathing: Denies shortness of breath, cough. GI: She has had diarrhea, it has been well controlled. She denies abdominal pain. She does have history of heartburn. : Urinates frequently, but otherwise negative. Neurologic: She has got the headache. Denies focal symptoms. She does not recall word finding difficulties. Skin: Negative. Lymph Nodes: She has not felt any palpable nodes or swollen glands. PHYSICAL EXAM: Temperature 99.4, BP 149/45, heart rate 70, respirations 14, O2 sat 97%. Telemetry shows sinus rhythm during this hospital stay. HEENT: Conjunctiva pale. Oral mucosa slightly dry. No oral lesions. No cervical or supraclavicular lymphadenopathy. Lungs: Clear to auscultation. Heart: Regular rage and rhythm. S1, S2. Slight diastolic murmur. 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 Good bowel sounds, mildly obese. Nodes: No inguinal or axillary lymphadenopathy. No head neck lymphadenopathy. Extremities: She has trace edema, good pulses. Skin: No significant bruising. No bleeding from her IV sites. Neurologic: She is conversational, although poor recall. I did not do a full neurologic exam today. LABS: As noted in HPI, but today her hemoglobin is 6.9, white count 9.6, platelets 210. ASSESSMENT AND PLAN: An 83-year-old female with progressive anemia, mildly microcytic. I suspect anemia is multifactorial, but there is a clear contribution of iron deficiency, potential renal insufficiency and chronic disease. No evidence of marrow dysfunction at this time. Source of iron loss is likely GI despite negative guaiac studies. Given severity of anemia and progression over this past year, it is likely contributing to her fatigue and I agree with Dr. Ortiz's plan for transfusion of packed red blood cells today. 1. Transfuse packed red blood cells and start IV iron, Ferrlecit 125 mg daily during admission. We can attempt oral therapy on discharge with Poly-Iron 150 mg p.o. daily. 2. We will review manual blood film. She has had SPEP and B12 done recently. No other serologic studies will be ordered at this time. 3. She has normal white count and platelets, if red blood cells increase substantially with iron, we will defer her additional studies such as bone marrow biopsy. 4. We will plan followup in1 to 2 weeks after discharge. 5. I agree with holding the Xarelto. Given her increased renal insufficiency, Eliquis would likely be more suitable long-term agent for her as it is 75% metabolized by the liver. 6. If she is refractory to IV or oral iron therapy, we will consider additional GI evaluation, can also treat her with IV iron as an outpatient if needed. [id number]/[facility] #: [id number] [facility]ERYong
[2018-09-28] MEDS: Insulin GLARGINE(*) 1 UNITS UNIT SUBCUT SCH (14:58)
[2018-09-28] MEDS: Ferric Gluconate IV* 125 MG in NS 0.9% 100 ML* 100 ML IVPB SCH (18:13)
[2018-09-28 19:26] LABS: Urine Appearance Clear; Urine Bacteria Absent (Absent); Urine Bilirubin Negative (Negative); Urine Blood Negative (Negative); Urine Color Yellow; Urine Glucose 1+(50 mg/dL) (Negative); Urine Ketones Negative (Negative); Urine Nitrite Negative (Negative); Urine Protein Negative (Negative); Urine Red Blood Cell 1+(3-5/hpf) (Absent); Urine Specific Gravity 1.016 (1.010-1.030); Urine Urobilinogen Negative (Negative); Urine White Blood Cell Trace(0-5/hpf) (Absent)
[2018-09-29] MEDS: Levothyroxine TAB* 25 MCG TAB PO SCH (05:30)
[2018-09-29] MEDS: Heparin VIAL(*) 5000 UNITS/ML VIAL (FIVE THOUSAND) SUBCUT SCH ×3 (05:30→21:56)
[2018-09-29 05:36] LABS: ABS Basophils 0 10^3/ul (0-0.2); ABS Eosinophils 0.1 10^3/ul (0-0.6); ABS Lymphocytes 2.6 10^3/ul (1.0-4.8); ABS Monocytes 1.4 10^3/ul (0-0.8); ABS Nucleated RBC 0 10^3/ul; Eosinophil % 0.4 %; Hematocrit 28 % (35-47); Hemoglobin 9.4 g/dl (12.0-16.0); Lymphocyte % 19.8 %; Mean Corpuscular HGB Conc 33 g/dl (31-36); Mean Corpuscular Hemoglobin 28 pg (27-31); Mean Corpuscular Volume 85 fL (80-97); Mean Platelet Volume 7.3 fL (7.4-10.4); Nucleated Red Blood Cells % 0.1; Platelet Count 194 10^3/ul (150-450); Red Blood Count 3.32 10^6/ul (4.00-5.40); Red Cell Distribution Width 16 % (10.5-15); White Blood Count 13.1 10^3/ul (3.5-10.8)
[2018-09-29 05:52] LABS: BUN/Creatinine Ratio 16.4 (8-20); Calcium 9.4 mg/dL (8.6-10.3); EGFR Non-African American 44.4 (>60); Potassium 3.9 mmol/L (3.5-5.0)
[2018-09-29] MEDS: Multivitamins/Minerals TAB PO SCH (08:05)
[2018-09-29] MEDS: Insulin LISPRO* 1 UNITS UNIT SUBCUT SCH ×4 (08:05→21:55)
[2018-09-29] MEDS: Pantoprazole TAB * 40 MG TAB PO SCH (08:05)
[2018-09-29] MEDS: Dofetilide CAP* 125 MCG PO SCH ×2 (08:06→21:56)
[2018-09-29] MEDS: Atorvastatin* 80 MG TAB PO SCH (08:06)
[2018-09-29] MEDS: Ferrous Sulfate TAB* 325 MG PO SCH ×2 (08:06→21:56)
[2018-09-29] MEDS: Calcium/Vitamin D TAB 250/125* TAB PO SCH (08:06)
[2018-09-29] MEDS: Carvedilol TAB* 25 MG PO SCH ×2 (08:07→17:53)
[2018-09-29] MEDS: BALSALAZIDE SODIUM 750 MG PO SCH ×2 (08:07→21:56)
[2018-09-29] MEDS: Aspirin EC TAB* 81 MG TAB.EC PO SCH (08:07)
[2018-09-29] MEDS: Ferric Gluconate IV* 125 MG in NS 0.9% 100 ML* 100 ML IVPB SCH (09:22)
[2018-09-29] MEDS ORDERED: Furosemide IV* 10 MG/ML VIAL (40 MG) IV ONE (09:46)
--- NOTE | 2018-09-29 10:27 | PN ---
Subjective Date of Service: 09/29/18 Interval History: Pt was noted to have more difficulty with word finding last night and it continues today. after transfusion and IV iron t need be placed on 02 this AM. right now pt denies CP/SOB. Appears that she has problems with expressing what she ants to say Objective Active Medications: Acetaminophen (Tylenol Tab*) 650 mg PO Q4H PRN PRN Reason: FEVER/PAIN Last Admin: 09/27/18 11:52 Dose: 650 mg Hydrocodone Bitart/Acetaminophen ([place] 5-325 Tab*) 1 tab PO Q6H PRN PRN Reason: PAIN Albuterol (Ventolin Hfa Inhaler*) 2 puff INH Q4H PRN PRN Reason: SHORTNESS OF BREATH Aspirin (Aspirin Ec Tab*) 81 mg PO DAILY [facility] Last Admin: 09/29/18 08:07 Dose: 81 mg Atorvastatin Calcium (Lipitor*) 80 mg PO DAILY [facility] Last Admin: 09/29/18 08:06 Dose: 80 mg Balsalazide (Colazal Cap(Nf)) 1,500 mg PO BID [facility]; Protocol Last Admin: 09/29/18 08:07 Dose: Not Given Calcium/Vitamin D (Oscal D Tab 250/125*) 1 tab PO DAILY [facility] Last Admin: 09/29/18 08:06 Dose: 1 tab Carvedilol (Coreg Tab*) 25 mg PO BID WITH MEALS [facility] Last Admin: 09/29/18 08:07 Dose: 25 mg Dextrose (D50w Syringe 50 Ml*) 12.5 gm IV PUSH .FOR FS < 60 - SS PRN PRN Reason: FS < 60 Dofetilide (Tikosyn Cap*) 125 mcg PO BID [facility] Last Admin: 09/29/18 08:06 Dose: 125 mcg Ferrous Sulfate (Ferrous Sulfate Tab*) 325 mg PO BID [facility] Last Admin: 09/29/18 08:06 Dose: 325 mg Heparin Sodium (Porcine) (Heparin Vial(*)) 5,000 units SUBCUT Q8HR [facility] Last Admin: 09/29/18 05:30 Dose: 5,000 units Ferric Sodium Gluconate Complex 125 mg/ Sodium Chloride 110 mls @ 110 mls/hr IVPB DAILY [facility] Last Admin: 09/29/18 09:22 Dose: 110 mls/hr Insulin Glargine (Lantus(*)) 10 units SUBCUT Q24H [facility] Last Admin: 09/28/18 14:58 Dose: 10 unit Insulin Human Lispro (Humalog*) 0 units SUBCUT ACHS [facility]; Protocol Last Admin: 09/29/18 08:05 Dose: 2 unit Levothyroxine Sodium (Synthroid Tab*) 12.5 mcg PO 0600 [facility] Last Admin: 09/29/18 05:30 Dose: 12.5 mcg Multivitamins/Minerals (Theragran/Minerals Tab*) 1 tab PO DAILY [facility] Last Admin: 09/29/18 08:05 Dose: 1 tab Pantoprazole Sodium (Protonix Tab (Nf)) 40 mg PO DAILY [facility] Last Admin: 09/29/18 08:05 Dose: 40 mg Scopolamine (Transderm-Scop 1.5 Mg Patch*) 1 patch TRANSDERM Q72H [facility] Last Admin: 09/26/18 15:39 Dose: 1 patch Vital Signs - 8 hr 09/29/18 09/29/18 03:48 07:22 Temperature 98.5 F 99.1 F Pulse Rate 70 73 Respiratory 20 16 Rate Blood Pressure 149/51 148/49 (mmHg) O2 Sat by Pulse 90 90 Oximetry Oxygen Devices in Use Now: None Appearance: 83 yo F in nAD,oriented to self, able to tell me she is in [place] in a "center", knows her , knows month and year, not day Eyes: No Scleral Icterus, PERRLA Ears/Nose/Mouth/Throat: NL Teeth, Lips, Gums, Mucous Membranes Moist Neck: NL Appearance and Movements; NL JVP, Trachea Midline Respiratory: Symmetrical Chest Expansion and Respiratory Effort, - - rales at b/ l bases Cardiovascular: NL Sounds; No Murmurs; No JVD, RRR Abdominal: NL Sounds; No Tenderness; No Distention Lymphatic: No Cervical Adenopathy Extremities: No Edema, No Clubbing, Cyanosis Skin: No Rash or Ulcers, No Nodules or Sclerosis Neurological: - - oriented x2, r homonymous hemianopisia still presesent, slight flattening of left nasolabial fold. mild expressive aphasia Result Diagrams: 09/29/18 05:27 09/29/18 05:27 Microbiology and Other Data: Microbiology 09/26/18 07:35 Stool Occult Blood ([facility]) - Final Stool Assess/Plan/Problems-Billing 83 year old with multiple stroke risk factors including AF on Xarelto and ASA, valvular heart disease s/p MV repair, HTN, DM, Hypercholesterolemia. History of chronic headaches, typically frontal in nature presents with 8/10--> 7/10--> /10 headache over the left eye, negative tenderness in the area, r hemianopsia , ataxia and posterior circulation ischemic CVA noted on CTA - Patient Problems (1) CVA (cerebral vascular accident) Comment: Appreciate Dr. Baugh's consult . CTA head/neck shows left [employer] CVA. 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 cont ASA. Unable to do MRI due to pacer. Last night pt developed more expressive aphasia. UA unremarkable. mild leukocytosis-suspect trelated to transfusion 09/28/18. Will get another brain CT, ask neurology to re-visit Echo with bubble neg in 07/02 and on 09/28/18 cont PT/OT. clinically she is improving slowly. Still significant vision deficit , but ataxia is resolving. flattening on left nasolabial fold seen intermittnely. expressive aphasia-began LDL optimal at 58-cont lipitor (2) Atrial fibrillation Comment: - Currently in paced sinus rhythm with occasional PVCs. - Continue rate control with metoprolol (Rate 70s-80s) - Continue rhythm control with dofetilide (3) Diabetes Comment: - Continue sliding scale lispro. Holding metformin/ glipizide . cont Lantus at a lower than home dose (4) Hypothyroid Comment: TSH 3.9. Continue levothyroxine. (5) Chronic systolic (congestive) heart failure Comment: - with signs of sacute diastolic CHF exacerbation after transfusion . will tx with a dose of Lasix 40 mg today. - Echo from 07/02 showed EF 50-55% with mild-moderate LV hypertrophy, however has previously had severely reduced EF (20-25% in 2015) (6) Ulcerative colitis Comment: Not in exacerbation- Denies N/V/D/Abdominal pain. Cont Balsalazide. (7) Ventricular tachycardia Comment: had 12 beats on 09/26/18, lytes WNL, cont telem. (8) Normocytic anemia Comment: stool heme- likely ACD, but will tx with iron also. Hb down to 6/9- on 1/14/19, s/p 2 PRBC transfusion and cont IV iron. appreciate oncology consult (9) BENJAMIN (acute kidney injury) Comment: likely mild dehydration. Resolving Aldactone held. Tx with Lasix IV for CHF today (10) DVT prophylaxis Comment: HSQ when off Xarelto Status and Disposition: inpatient
--- NOTE | 2018-09-29 12:18 | PN ---
<Duane Barragan - Last Filed: 09/29/18 12:48> Subjective Date of Service: 09/29/18 Length of Stay: 4 Days Neurology is following Mrs Anderson for the evaluation and management of CVA Interval History: CC- AMS, Slurred speech, Asked by Dr Ortiz to re-evaluate patient today given increasing confusion and slurred speech. Pt examined at the bedside she denies chest pain and denies sob. She states denies headache and says its much improved. She denies blurry or double vision. Denies sob and chest pain. ROS-denies fever, denies chills, denies chest pain, denies nausea, denies vomiting, denies lightheadedness, denies loc, denies abdominal pain, states her headache is improved. Objective Active Medications: Acetaminophen (Tylenol Tab*) 650 mg PO Q4H PRN Hydrocodone Bitart/Acetaminophen ([place] 5-325 Tab*) 1 tab PO Q6H PRN Albuterol (Ventolin Hfa Inhaler*) 2 puff INH Q4H PRN Aspirin (Aspirin Ec Tab*) 81 mg PO DAILY [facility] Atorvastatin Calcium (Lipitor*) 80 mg PO DAILY [facility] Balsalazide (Colazal Cap(Nf)) 1,500 mg PO BID [facility]; Protocol Calcium/Vitamin D (Oscal D Tab 250/125*) 1 tab PO DAILY [facility] Carvedilol (Coreg Tab*) 25 mg PO BID WITH MEALS [facility] Dextrose (D50w Syringe 50 Ml*) 12.5 gm IV PUSH .FOR FS < 60 - SS PRN Dofetilide (Tikosyn Cap*) 125 mcg PO BID [facility] Ferrous Sulfate (Ferrous Sulfate Tab*) 325 mg PO BID [facility] Heparin Sodium (Porcine) (Heparin Vial(*)) 5,000 units SUBCUT Q8HR [facility] Ferric Sodium Gluconate Complex 125 mg/ Sodium Chloride 110 mls @ 110 mls/hr IVPB DAILY [facility] Insulin Glargine (Lantus(*)) 10 units SUBCUT Q24H [facility] Insulin Human Lispro (Humalog*) 0 units SUBCUT ACHS [facility]; Protocol Levothyroxine Sodium (Synthroid Tab*) 12.5 mcg PO 0600 [facility] Multivitamins/Minerals (Theragran/Minerals Tab*) 1 tab PO DAILY [facility] Pantoprazole Sodium (Protonix Tab (Nf)) 40 mg PO DAILY [facility] Scopolamine (Transderm-Scop 1.5 Mg Patch*) 1 patch TRANSDERM Q72H [facility] Vital Signs 09/28/18 09/28/18 09/28/18 12:39 13:30 13:40 Temperature 98.7 F 98 F 98.6 F Pulse Rate 65 73 70 Respiratory 16 16 16 Rate Blood Pressure 142/49 153/50 156/49 (mmHg) O2 Sat by Pulse 100 98 97 Oximetry 09/28/18 09/28/18 09/28/18 14:19 19:20 20:11 Temperature 98 F 98.1 F Pulse Rate 70 70 Respiratory 16 16 18 Rate Blood Pressure 160/57 158/56 (mmHg) O2 Sat by Pulse 96 96 94 Oximetry 09/28/18 09/29/18 09/29/18 23:39 03:48 07:22 Temperature 98.0 F 98.5 F 99.1 F Pulse Rate 64 70 73 Respiratory 18 20 16 Rate Blood Pressure 154/66 149/51 148/49 (mmHg) O2 Sat by Pulse 93 90 90 Oximetry 09/29/18 08:00 Temperature Pulse Rate Respiratory 18 Rate Blood Pressure (mmHg) O2 Sat by Pulse 90 Oximetry Intake and Output Last 24 Hours 09/27/18 09/28/18 09/29/18 09/30/18 06:59 06:59 06:59 06:59 Intake Total 1799 1839 597 Output Total 0 0 250 Balance 1799 1839 347 Intake: IV Fluids 999 1219 397 Blood Products 287 Ferric Gluconate 110 NS (0.9%) 999 1219 Oral 800 620 200 Output: Urine 0 0 250 Other: Estimated Void Medium Medium # Bowel Movements 1 3 Estimated Stool Amount Medium Medium Large # Voids 1 1 2 Oxygen Devices in Use Now: Nasal Cannula Neurology Exam: General: Awake, Alert, Oriented x3 HEENT: Normocephalic/atraumatic, sclera anicteric, mucous membranes moist Neck: Supple Chest: Clear to auscultation bilaterally Cardiovascular: Regular rate and rhythm without murmurs, rubs, gallops Abdomen: Soft, nontender/nondistended Extremities: No clubbing, cyanosis, or edema Neurological Findings: Awake, Alert, Oriented x3 states her name and is able to say shes in [place], [place] at the [facility], she knows its September, she thinks its Friday Speech: slurring noted at first when talking with patient but by end of examine improved back to baseline per daughter able to repeat no if ands or buts, able to count backwards from 10, Cranial Nerve: PEERL, EOM intact, Right sided hemianopsia no nystagmus, left sided facial droop noted remains unchanged facial sensation intact, hearing intact to finger rub bilaterally, palate elevates symmetrically, tongue midline , SCM and Trapezius s/s. Motor: 5/5 throughout, proximal and distal extremities x4 tone/bulk normal, however RUE extremity and RLE drift noted Sensation: intact to LT/PP bilaterally upper and lower extremities Deep Tendon Reflex: 2+ symmetric in the upper/lower extremities, Babinski - down going Finger to nose, rapid alternating movements intact without tremor, no dysdiadochokinesia Gait: used a walker was noted to be wide based gait noted, Result Diagrams: 09/29/18 05:27 09/29/18 05:27 Microbiology and Other Data: Microbiology 09/26/18 07:35 Stool Occult Blood ([facility]) - Final Stool Assessment/Plan 83 year old with multiple stroke risk factors including AF on Xarelto and ASA, valvular heart disease s/p MV repair, HTN, DM, Hypercholesterolemia. History of chronic headaches, typically frontal in nature presents with headache over the left eye 10--> 03/24-->410 -->improved this am, negative tenderness in the area. She typically gets a headache every other day responsive to Tylenol. She received Magnesium in the ER without benefit. Family reports possible left facial droop with slurred speech. Exam is focal with some apparent visual field loss on the right side, and drift noted to RUE and RLE difficult exam, and some mild left lower facial weakness. This morning, asked to re-evaluate for worsening speech 1. 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 Ortiz and Pt daughter the risk of hemmoragic conversion is high and no thrombus noted on echo as well no afib noted on monitor, at this point will continue to hold xarleto, after two weeks would use eliquis given lower bleed risk profile --Would strive for upper limits of normal with BP --Continue cholesterol control with goal LDL < 70. --Continue DM control. --She is a non smoker --Follow up Echo shows no thrombus --She will need PT/OT, may be a good candidate for inpatient rehab --If she has any change in her condition, repeat CT to rule out any changes in her stroke 2. Headache: Continues to improve. Suspect this was atypical presentation of her baseline, no further workup or intervention at this point. 3. AMS/Dysarthria; Etiology remains unclear today (09/29) she had another brain CT which does not show conversion or worsening stroke. At time of initially eval she did have slurred speech but improved during exam. Suspect multifactorial, noted to be mildy hypoxic this am suspect this is from blood transfusions yesterday and also it was reported that she may have been off her CPAP. This may have contributed to AMS and slurred speech. Keep o2 sats > 94 percent and make sure cpap is on at night. New stroke is a concern however given she improved unlikely. If she develops new symptoms of CVA that are in another vascular distribution one may consider embolic disease from a cardiac source unfortunately we can not obtain another MRI to eval for a new smaller cva , in the interiem one could repeat echo to eval for a cardiac source or even consider EULALIA but a EULALIA would be high risk in this patient. For now given the waxing and weaning of her symptoms would observe would not put on DOAC at this point given the risk of hemorragic conversion and given the location of the CVA. This was discussed with Dr Ortiz, Dr Baugh and the patient, and her family. For now treat reversible causes the hypoxia and wearing CPAP, U/A not concerning for UTI. Would give lasix with caution maintain BP systolic > 140. 4. Anemia: Workup and treatment per Primary team. She is to get 2 U of PRBC this am. Would try to keep her Hgb > 8. I will sign off for now but would like to see the patient in follow up as outpatient. Please call me with any new issues or new developments. <Moy Baugh - Last Filed: 09/29/18 14:37> Subjective Length of Stay: 4 Days Neurology is following [] for the evaluation and management of [] Review of Systems: Denied CP, SOB, or palpitations. Objective Active Medications: Acetaminophen (Tylenol Tab*) 650 mg PO Q4H PRN PRN Reason: FEVER/PAIN Last Admin: 09/27/18 11:52 Dose: 650 mg Hydrocodone Bitart/Acetaminophen ([place] 5-325 Tab*) 1 tab PO Q6H PRN PRN Reason: PAIN Albuterol (Ventolin Hfa Inhaler*) 2 puff INH Q4H PRN PRN Reason: SHORTNESS OF BREATH Aspirin (Aspirin Ec Tab*) 81 mg PO DAILY [facility] Last Admin: 09/29/18 08:07 Dose: 81 mg Atorvastatin Calcium (Lipitor*) 80 mg PO DAILY [facility] Last Admin: 09/29/18 08:06 Dose: 80 mg Balsalazide (Colazal Cap(Nf)) 1,500 mg PO BID [facility]; Protocol Last Admin: 09/29/18 08:07 Dose: Not Given Calcium/Vitamin D (Oscal D Tab 250/125*) 1 tab PO DAILY [facility] Last Admin: 09/29/18 08:06 Dose: 1 tab Carvedilol (Coreg Tab*) 25 mg PO BID WITH MEALS [facility] Last Admin: 09/29/18 08:07 Dose: 25 mg Dextrose (D50w Syringe 50 Ml*) 12.5 gm IV PUSH .FOR FS < 60 - SS PRN PRN Reason: FS < 60 Dofetilide (Tikosyn Cap*) 125 mcg PO BID [facility] Last Admin: 09/29/18 08:06 Dose: 125 mcg Ferrous Sulfate (Ferrous Sulfate Tab*) 325 mg PO BID [facility] Last Admin: 09/29/18 08:06 Dose: 325 mg Heparin Sodium (Porcine) (Heparin Vial(*)) 5,000 units SUBCUT Q8HR [facility] Last Admin: 09/29/18 05:30 Dose: 5,000 units Ferric Sodium Gluconate Complex 125 mg/ Sodium Chloride 110 mls @ 110 mls/hr IVPB DAILY [facility] Last Admin: 09/29/18 09:22 Dose: 110 mls/hr Insulin Glargine (Lantus(*)) 10 units SUBCUT Q24H [facility] Last Admin: 09/28/18 14:58 Dose: 10 unit Insulin Human Lispro (Humalog*) 0 units SUBCUT ACHS [facility]; Protocol Last Admin: 09/29/18 11:57 Dose: 2 unit Levothyroxine Sodium (Synthroid Tab*) 12.5 mcg PO 0600 [facility] Last Admin: 09/29/18 05:30 Dose: 12.5 mcg Multivitamins/Minerals (Theragran/Minerals Tab*) 1 tab PO DAILY [facility] Last Admin: 09/29/18 08:05 Dose: 1 tab Pantoprazole Sodium (Protonix Tab (Nf)) 40 mg PO DAILY [facility] Last Admin: 09/29/18 08:05 Dose: 40 mg Scopolamine (Transderm-Scop 1.5 Mg Patch*) 1 patch TRANSDERM Q72H [facility] Last Admin: 09/26/18 15:39 Dose: 1 patch Vital Signs 09/28/18 09/28/18 09/28/18 19:20 20:11 23:39 Temperature 98.1 F 98.0 F Pulse Rate 70 64 Respiratory 16 18 18 Rate Blood Pressure 158/56 154/66 (mmHg) O2 Sat by Pulse 96 94 93 Oximetry 09/29/18 09/29/18 09/29/18 03:48 07:22 08:00 Temperature 98.5 F 99.1 F Pulse Rate 70 73 Respiratory 20 16 18 Rate Blood Pressure 149/51 148/49 (mmHg) O2 Sat by Pulse 90 90 90 Oximetry Intake and Output Last 24 Hours 09/27/18 09/28/18 09/29/18 09/30/18 06:59 06:59 06:59 06:59 Intake Total 1799 1839 597 0 Output Total 0 0 250 Balance 1799 1839 347 0 Intake: IV Fluids 999 1219 397 Blood Products 287 Ferric Gluconate 110 NS (0.9%) 999 1219 Oral 800 620 200 0 Output: Urine 0 0 250 Other: Estimated Void Medium Medium # Bowel Movements 1 3 Estimated Stool Amount Medium Medium Large # Voids 1 1 2 Neurology Exam: General: Awake, Alert, Oriented x3 HEENT: Normocephalic/atraumatic, sclera anicteric, mucous membranes moist Neck: Supple Chest: Clear to auscultation bilaterally Cardiovascular: Regular rate and rhythm without murmurs, rubs, gallops Abdomen: Soft, nontender/nondistended Extremities: No clubbing, cyanosis, or edema Neurological Findings: Awake, Alert, Oriented x3 Speech: fluent without dysrhythmia, repetition intact Cranial Nerve: PEERL, EOM intact, VFF, no nystagmus, face symmetric bilaterally , facial sensation intact, hearing intact to finger rub bilaterally, palate elevates symmetrically, tongue midline, SCM and Trapezius s/s. Motor: s/s throughout, proximal and distal extremities x4 tone/bulk normal Sensation: intact to LT/PP bilaterally upper and lower extremities Deep Tendon Reflex: 2+ symmetric in the upper/lower extremities, Babinski - down going Finger to nose, rapid alternating movements intact without tremor, no dysdiadochokinesia Gait: intact with good arm swing and stride Result Diagrams: 09/29/18 05:27 09/29/18 05:27 Microbiology and Other Data: Microbiology 09/26/18 07:35 Stool Occult Blood ([facility]) - Final Stool Assessment/Plan I have seen and evaluated the patient with Duane Barragan this morning. We have discussed the case and I agree with the plans as outlined above. Attending: Moy Baugh
--- NOTE | 2018-09-29 14:53 | PN ---
Subjective Length of Stay: 4 Days Neurology is following [] for the evaluation and management of [] Review of Systems: Denied CP, SOB, or palpitations. Objective Active Medications: Acetaminophen (Tylenol Tab*) 650 mg PO Q4H PRN PRN Reason: FEVER/PAIN Last Admin: 09/27/18 11:52 Dose: 650 mg Hydrocodone Bitart/Acetaminophen ([place] 5-325 Tab*) 1 tab PO Q6H PRN PRN Reason: PAIN Albuterol (Ventolin Hfa Inhaler*) 2 puff INH Q4H PRN PRN Reason: SHORTNESS OF BREATH Aspirin (Aspirin Ec Tab*) 81 mg PO DAILY [facility] Last Admin: 09/29/18 08:07 Dose: 81 mg Atorvastatin Calcium (Lipitor*) 80 mg PO DAILY [facility] Last Admin: 09/29/18 08:06 Dose: 80 mg Balsalazide (Colazal Cap(Nf)) 1,500 mg PO BID [facility]; Protocol Last Admin: 09/29/18 08:07 Dose: Not Given Calcium/Vitamin D (Oscal D Tab 250/125*) 1 tab PO DAILY [facility] Last Admin: 09/29/18 08:06 Dose: 1 tab Carvedilol (Coreg Tab*) 25 mg PO BID WITH MEALS [facility] Last Admin: 09/29/18 08:07 Dose: 25 mg Dextrose (D50w Syringe 50 Ml*) 12.5 gm IV PUSH .FOR FS < 60 - SS PRN PRN Reason: FS < 60 Dofetilide (Tikosyn Cap*) 125 mcg PO BID [facility] Last Admin: 09/29/18 08:06 Dose: 125 mcg Ferrous Sulfate (Ferrous Sulfate Tab*) 325 mg PO BID [facility] Last Admin: 09/29/18 08:06 Dose: 325 mg Heparin Sodium (Porcine) (Heparin Vial(*)) 5,000 units SUBCUT Q8HR [facility] Last Admin: 09/29/18 05:30 Dose: 5,000 units Ferric Sodium Gluconate Complex 125 mg/ Sodium Chloride 110 mls @ 110 mls/hr IVPB DAILY [facility] Last Admin: 09/29/18 09:22 Dose: 110 mls/hr Insulin Glargine (Lantus(*)) 10 units SUBCUT Q24H [facility] Last Admin: 09/28/18 14:58 Dose: 10 unit Insulin Human Lispro (Humalog*) 0 units SUBCUT ACHS [facility]; Protocol Last Admin: 09/29/18 11:57 Dose: 2 unit Levothyroxine Sodium (Synthroid Tab*) 12.5 mcg PO 0600 [facility] Last Admin: 09/29/18 05:30 Dose: 12.5 mcg Multivitamins/Minerals (Theragran/Minerals Tab*) 1 tab PO DAILY [facility] Last Admin: 09/29/18 08:05 Dose: 1 tab Pantoprazole Sodium (Protonix Tab (Nf)) 40 mg PO DAILY [facility] Last Admin: 09/29/18 08:05 Dose: 40 mg Scopolamine (Transderm-Scop 1.5 Mg Patch*) 1 patch TRANSDERM Q72H [facility] Last Admin: 09/26/18 15:39 Dose: 1 patch Vital Signs 09/28/18 09/28/18 09/28/18 19:20 20:11 23:39 Temperature 98.1 F 98.0 F Pulse Rate 70 64 Respiratory 16 18 18 Rate Blood Pressure 158/56 154/66 (mmHg) O2 Sat by Pulse 96 94 93 Oximetry 09/29/18 09/29/18 09/29/18 03:48 07:22 08:00 Temperature 98.5 F 99.1 F Pulse Rate 70 73 Respiratory 20 16 18 Rate Blood Pressure 149/51 148/49 (mmHg) O2 Sat by Pulse 90 90 90 Oximetry Intake and Output Last 24 Hours 09/27/18 09/28/18 09/29/18 09/30/18 06:59 06:59 06:59 06:59 Intake Total 1799 1839 597 120 Output Total 0 0 250 Balance 1799 1839 347 120 Intake: IV Fluids 999 1219 397 Blood Products 287 Ferric Gluconate 110 NS (0.9%) 999 1219 Oral 800 620 200 120 Output: Urine 0 0 250 Other: Estimated Void Medium Medium # Bowel Movements 1 3 Estimated Stool Amount Medium Medium Large # Voids 1 1 2 2 Oxygen Devices in Use Now: Nasal Cannula Neurology Exam: General: Awake, Alert, Oriented x3 HEENT: Normocephalic/atraumatic, sclera anicteric, mucous membranes moist Neck: Supple Chest: Clear to auscultation bilaterally Cardiovascular: Regular rate and rhythm without murmurs, rubs, gallops Abdomen: Soft, nontender/nondistended Extremities: No clubbing, cyanosis, or edema Neurological Findings: Awake, Alert, Oriented x3 Speech: fluent without dysrhythmia, repetition intact Cranial Nerve: PEERL, EOM intact, VFF, no nystagmus, face symmetric bilaterally , facial sensation intact, hearing intact to finger rub bilaterally, palate elevates symmetrically, tongue midline, SCM and Trapezius s/s. Motor: s/s throughout, proximal and distal extremities x4 tone/bulk normal Sensation: intact to LT/PP bilaterally upper and lower extremities Deep Tendon Reflex: 2+ symmetric in the upper/lower extremities, Babinski - down going Finger to nose, rapid alternating movements intact without tremor, no dysdiadochokinesia Gait: intact with good arm swing and stride Result Diagrams: 09/29/18 05:27 09/29/18 05:27 Microbiology and Other Data: Microbiology 09/26/18 07:35 Stool Occult Blood ([facility]) - Final Stool Assessment/Plan I have seen and evaluated the patient with Duane Barragan this morning. We have discussed the case and I agree with the plans as outlined above.
[2018-09-29] MEDS: Scopolamine 1.5 mg* PATCH TRANSDERM SCH (16:13)
[2018-09-29] MEDS: Insulin GLARGINE(*) 1 UNITS UNIT SUBCUT SCH (16:13)
[2018-09-30] MEDS: Levothyroxine TAB* 25 MCG TAB PO SCH (05:44)
[2018-09-30] MEDS: Heparin VIAL(*) 5000 UNITS/ML VIAL (FIVE THOUSAND) SUBCUT SCH ×3 (05:45→21:03)
[2018-09-30 05:49] LABS: Hematocrit 28 % (35-47); Hemoglobin 9.3 g/dl (12.0-16.0); Mean Corpuscular HGB Conc 33 g/dl (31-36); Mean Corpuscular Hemoglobin 28 pg (27-31); Mean Corpuscular Volume 84 fL (80-97); Mean Platelet Volume 7.6 fL (7.4-10.4); Platelet Count 201 10^3/ul (150-450); Red Blood Count 3.35 10^6/ul (4.00-5.40); Red Cell Distribution Width 16 % (10.5-15); White Blood Count 11.4 10^3/ul (3.5-10.8)
[2018-09-30 06:08] LABS: BUN/Creatinine Ratio 18.7 (8-20); Calcium 9.6 mg/dL (8.6-10.3); EGFR Non-African American 37.6 (>60); Potassium 3.8 mmol/L (3.5-5.0)
--- NOTE | 2018-09-30 07:28 | PN ---
Subjective Date of Service: 09/30/18 Length of Stay: 5 Days Interval History: I spoke with the am nurse, no major issues reported overnight. She wore her CPAP all night. She did have 2 episodes of bowel incontinence but per the patient, she was on her way to the bathroom and could not get there in time. No reported episodes of confusion. Tele shows A.fib, paced. She notes some weakness this am on the right side but present yesterday and when questioned, she feels like she has had it for some time. Otherwise, she notes no problems. She states her headaches have resolved. The nurse notes that when she tried to ambulate her, she was having trouble seeing out of the right side (known issue) and was leaning to the right side. When she stood up, she seemed to get more confused in the bathroom, was dropping some things. Repeat CT yesterday: evolving left MAP COMPILER stroke with mild edema, unchanged, no new issues. Review of Systems: ROS: No chest pain, SOB, N/V, pain. Headache resolved. No new vision issues. Family History: Findings Social History: Findings Past Medical History: Findings Objective Active Medications: Acetaminophen (Tylenol Tab*) 650 mg PO Q4H PRN PRN Reason: FEVER/PAIN Last Admin: 09/27/18 11:52 Dose: 650 mg Hydrocodone Bitart/Acetaminophen ([place] 5-325 Tab*) 1 tab PO Q6H PRN PRN Reason: PAIN Albuterol (Ventolin Hfa Inhaler*) 2 puff INH Q4H PRN PRN Reason: SHORTNESS OF BREATH Aspirin (Aspirin Ec Tab*) 81 mg PO DAILY [facility] Last Admin: 09/29/18 08:07 Dose: 81 mg Atorvastatin Calcium (Lipitor*) 80 mg PO DAILY [facility] Last Admin: 09/29/18 08:06 Dose: 80 mg Balsalazide (Colazal Cap(Nf)) 1,500 mg PO BID [facility]; Protocol Last Admin: 09/29/18 21:56 Dose: Not Given Calcium/Vitamin D (Oscal D Tab 250/125*) 1 tab PO DAILY [facility] Last Admin: 09/29/18 08:06 Dose: 1 tab Carvedilol (Coreg Tab*) 25 mg PO BID WITH MEALS [facility] Last Admin: 09/29/18 17:53 Dose: 25 mg Dextrose (D50w Syringe 50 Ml*) 12.5 gm IV PUSH .FOR FS < 60 - SS PRN PRN Reason: FS < 60 Dofetilide (Tikosyn Cap*) 125 mcg PO BID [facility] Last Admin: 09/29/18 21:56 Dose: 125 mcg Ferrous Sulfate (Ferrous Sulfate Tab*) 325 mg PO BID [facility] Last Admin: 09/29/18 21:56 Dose: 325 mg Heparin Sodium (Porcine) (Heparin Vial(*)) 5,000 units SUBCUT Q8HR [facility] Last Admin: 09/30/18 05:45 Dose: 5,000 units Ferric Sodium Gluconate Complex 125 mg/ Sodium Chloride 110 mls @ 110 mls/hr IVPB DAILY [facility] Last Admin: 09/29/18 09:22 Dose: 110 mls/hr Insulin Glargine (Lantus(*)) 10 units SUBCUT Q24H [facility] Last Admin: 09/29/18 16:13 Dose: 10 unit Insulin Human Lispro (Humalog*) 0 units SUBCUT ACHS [facility]; Protocol Last Admin: 09/29/18 21:55 Dose: 2 unit Levothyroxine Sodium (Synthroid Tab*) 12.5 mcg PO 0600 [facility] Last Admin: 09/30/18 05:44 Dose: 12.5 mcg Multivitamins/Minerals (Theragran/Minerals Tab*) 1 tab PO DAILY [facility] Last Admin: 09/29/18 08:05 Dose: 1 tab Pantoprazole Sodium (Protonix Tab (Nf)) 40 mg PO DAILY [facility] Last Admin: 09/29/18 08:05 Dose: 40 mg Scopolamine (Transderm-Scop 1.5 Mg Patch*) 1 patch TRANSDERM Q72H [facility] Last Admin: 09/29/18 16:13 Dose: 1 patch Vital Signs 09/29/18 09/29/18 09/29/18 08:00 11:25 15:03 Temperature 98.5 F 98.1 F Pulse Rate 70 69 Respiratory 18 16 16 Rate Blood Pressure 137/46 109/46 (mmHg) O2 Sat by Pulse 90 95 97 Oximetry 09/29/18 09/29/18 09/29/18 20:00 20:12 23:44 Temperature 98.5 F 98.6 F Pulse Rate 70 69 Respiratory 16 20 20 Rate Blood Pressure 111/55 142/56 (mmHg) O2 Sat by Pulse 93 99 Oximetry 09/30/18 03:35 Temperature 98.1 F Pulse Rate 136 Respiratory 20 Rate Blood Pressure 113/50 (mmHg) O2 Sat by Pulse 97 Oximetry Intake and Output Last 24 Hours 09/28/18 09/29/18 09/30/18 10/01/18 06:59 06:59 06:59 06:59 Intake Total 1839 597 950 Output Total 0 250 900 Balance 1839 347 50 Intake: IV Fluids 1219 397 Blood Products 287 Ferric Gluconate 110 NS (0.9%) 1219 IVPB 110 Ferric Gluconate 110 Oral 620 200 840 Output: Urine 0 250 900 Other: Estimated Void Medium # Bowel Movements 3 1 Estimated Stool Amount Medium Large Small # Voids 1 2 0 Oxygen Devices in Use Now: Nasal Cannula Neurology Exam: General: HEENT: Normocephalic/atraumatic, sclera anicteric, mucous membranes moist Neck: Supple Chest: Clear to auscultation bilaterally Cardiovascular: Irreg irreg Abdomen: Soft Extremities: No clubbing, cyanosis, or edema Neurological Findings: Awake, Alert, Oriented x to person and place, time Speech: Speech is clear, no dysarthria. Cranial Nerve: PEERL, EOM intact, Right sided homonymous hemianopsia no nystagmus, left sided facial droop noted remains unchanged, , palate elevates symmetrically, tongue midline Motor: 5/5 throughout, proximal and distal extremities x4 tone with some giveway in the proximal RLE and drift after 5 seconds (dropped her leg). Mild drift in the RUE Sensation: intact to LT/PP bilaterally upper and lower extremities Finger to nose, rapid alternating movements intact without tremor Gait: slow, using walker, leans to the right, unsteady Result Diagrams: 09/30/18 05:30 09/30/18 05:30 Microbiology and Other Data: Microbiology 09/28/18 18:35 Urine Culture - Final Urine 09/26/18 07:35 Stool Occult Blood ([facility]) - Final Stool Assessment/Plan 83 year old with multiple stroke risk factors including AF on Xarelto and ASA, valvular heart disease s/p MV repair, HTN, DM, Hypercholesterolemia. History of chronic headaches, typically frontal in nature presents with headache over the left eye 04/24--> 03/24-->12/23 -->resolved this am, new left MAP COMPILER stroke with right HH, some waxing and waning neurologic symptoms, slurred speech and confusion yesterday, now resolved. Got confused this morning when she stood up. 1. Stroke: left MAP COMPILER stroke --Off Xarelto, would hold for 2 weeks, continue ASA, discussed with Dr. Ortiz and Pt daughter the risk of hemmoragic conversion is high and no thrombus noted on echo as well no afib noted on monitor, at this point will continue to hold xarleto, after two weeks would use eliquis given lower bleed risk profile --Would strive for upper limits of normal with BP Check Orthostatics --Continue cholesterol control with goal LDL < 70. --Continue DM control. --She is a non smoker --Follow up Echo shows no thrombus --repeat CTs show now changes. --She will need PT/OT, may be a good candidate for inpatient rehab --Given the acute change she had this morning when standing, I wonder if she is getting orthostatic and may have some decreased perfusion when her blood pressure is low. We are going to check orthostatics this am. Her Right sided weakness seems to be the same as yesterday. My concern for new strokes is very low as she continues to have the same recurring findings that are intermittent. With cardioembolic TIAs or strokes, I would expect some new symptoms as well. With that said, I think it is reasonable to continue off anticoagulation for now, only antiplatelet, for 2 weeks and then resume Eliquis which has a slightly lower risk of bleeding. We will repeat CT with any new neurologic deficits. 2. Headache: Resolved at this point 3. Anemia: Would try to keep her Hgb > 8.
[2018-09-30] MEDS: Insulin LISPRO* 1 UNITS UNIT SUBCUT SCH ×4 (09:11→21:03)
[2018-09-30] MEDS: Atorvastatin* 80 MG TAB PO SCH (09:11)
[2018-09-30] MEDS: Ferric Gluconate IV* 125 MG in NS 0.9% 100 ML* 100 ML IVPB SCH (09:11)
[2018-09-30] MEDS: Multivitamins/Minerals TAB PO SCH (09:11)
[2018-09-30] MEDS: Dofetilide CAP* 125 MCG PO SCH ×2 (09:12→21:02)
[2018-09-30] MEDS: Pantoprazole TAB * 40 MG TAB PO SCH (09:12)
[2018-09-30] MEDS: Ferrous Sulfate TAB* 325 MG PO SCH ×2 (09:12→21:02)
[2018-09-30] MEDS: BALSALAZIDE SODIUM 750 MG PO SCH ×2 (09:12→21:04)
[2018-09-30] MEDS: Aspirin EC TAB* 81 MG TAB.EC PO SCH (09:12)
[2018-09-30] MEDS: Calcium/Vitamin D TAB 250/125* TAB PO SCH (09:12)
[2018-09-30] MEDS: Carvedilol TAB* 25 MG PO SCH (09:19)
[2018-09-30] MEDS: Acetaminophen TAB* 325 MG PO PRN (11:41)
[2018-09-30] MEDS ORDERED: Insulin GLARGINE(*) 1 UNITS UNIT SUBCUT SCH (14:35)
[2018-09-30] MEDS: Insulin GLARGINE(*) 1 UNITS UNIT SUBCUT SCH (14:57)
--- NOTE | 2018-09-30 15:03 | PN ---
Subjective Date of Service: 09/30/18 Interval History: No c/o. No pain. Appetite OK. Family History: Findings Social History: Findings Past Medical History: Findings Objective Active Medications: Acetaminophen (Tylenol Tab*) 650 mg PO Q4H PRN PRN Reason: FEVER/PAIN Last Admin: 09/30/18 11:41 Dose: 650 mg Hydrocodone Bitart/Acetaminophen ([place] 5-325 Tab*) 1 tab PO Q6H PRN PRN Reason: PAIN Albuterol (Ventolin Hfa Inhaler*) 2 puff INH Q4H PRN PRN Reason: SHORTNESS OF BREATH Aspirin (Aspirin Ec Tab*) 81 mg PO DAILY [facility] Last Admin: 09/30/18 09:12 Dose: 81 mg Atorvastatin Calcium (Lipitor*) 80 mg PO DAILY [facility] Last Admin: 09/30/18 09:11 Dose: 80 mg Balsalazide (Colazal Cap(Nf)) 1,500 mg PO BID [facility]; Protocol Last Admin: 09/30/18 09:12 Dose: Not Given Calcium/Vitamin D (Oscal D Tab 250/125*) 1 tab PO DAILY [facility] Last Admin: 09/30/18 09:12 Dose: 1 tab Dextrose (D50w Syringe 50 Ml*) 12.5 gm IV PUSH .FOR FS < 60 - SS PRN PRN Reason: FS < 60 Dofetilide (Tikosyn Cap*) 125 mcg PO BID [facility] Last Admin: 09/30/18 09:12 Dose: 125 mcg Ferrous Sulfate (Ferrous Sulfate Tab*) 325 mg PO BID [facility] Last Admin: 09/30/18 09:12 Dose: 325 mg Heparin Sodium (Porcine) (Heparin Vial(*)) 5,000 units SUBCUT Q8HR [facility] Last Admin: 09/30/18 14:54 Dose: 5,000 units Ferric Sodium Gluconate Complex 125 mg/ Sodium Chloride 110 mls @ 110 mls/hr IVPB DAILY [facility] Last Admin: 09/30/18 09:11 Dose: 110 mls/hr Insulin Glargine (Lantus(*)) 15 units SUBCUT Q24H [facility] Last Admin: 09/30/18 14:54 Dose: 15 units Insulin Human Lispro (Humalog*) 0 units SUBCUT ACHS [facility]; Protocol Last Admin: 09/30/18 12:01 Dose: 6 unit Levothyroxine Sodium (Synthroid Tab*) 12.5 mcg PO 0600 [facility] Last Admin: 09/30/18 05:44 Dose: 12.5 mcg Midodrine (Midodrine (Nf)) 5 mg PO TID [facility]; Protocol Multivitamins/Minerals (Theragran/Minerals Tab*) 1 tab PO DAILY [facility] Last Admin: 09/30/18 09:11 Dose: 1 tab Pantoprazole Sodium (Protonix Tab (Nf)) 40 mg PO DAILY [facility] Last Admin: 09/30/18 09:12 Dose: 40 mg Scopolamine (Transderm-Scop 1.5 Mg Patch*) 1 patch TRANSDERM Q72H [facility] Last Admin: 09/29/18 16:13 Dose: 1 patch Vital Signs - 8 hr 09/30/18 09/30/18 09/30/18 07:28 07:56 08:00 Temperature 98.3 F Pulse Rate 70 75 Respiratory 20 18 Rate Blood Pressure 135/49 75/55 (mmHg) O2 Sat by Pulse 94 100 Oximetry 09/30/18 10:58 Temperature 99.2 F Pulse Rate 70 Respiratory 20 Rate Blood Pressure 143/95 (mmHg) O2 Sat by Pulse 100 Oximetry Oxygen Devices in Use Now: Nasal Cannula Appearance: Alert, partly up in bed. In good spirits. Looks comfortable. Neck: NL Appearance and Movements; NL JVP, No Thyroid Enlargement, Masses Respiratory: Symmetrical Chest Expansion and Respiratory Effort, Clear to Auscultation, Clear to Percussion Cardiovascular: NL Sounds; No Murmurs; No JVD, RRR, No Edema, - Extremities: No Edema, No Clubbing, Cyanosis, - Skin: No Rash or Ulcers, No Nodules or Sclerosis, - Neurological: NL Sensation, - - Speech clear and fluent. R hemianopsia. R leg lifts off bed but weaker than L. Hand rn registry almost equal, R very sl weaker. Result Diagrams: 09/30/18 05:30 09/30/18 05:30 Microbiology and Other Data: Microbiology 09/28/18 18:35 Urine Culture - Final Urine 09/26/18 07:35 Stool Occult Blood ([facility]) - Final Stool Assess/Plan/Problems-Billing 83 year old with multiple stroke risk factors including AF on Xarelto and ASA, valvular heart disease s/p MV repair, HTN, DM, Hypercholesterolemia. History of chronic headaches, typically frontal in nature presents with headache over the left eye 04/24--> 03/24-->12/23 -->resolved this am, new left PRICING STRATEGIST stroke with right HH, some waxing and waning neurologic symptoms, slurred speech and confusion yesterday, now resolved. Got confused this morning when she stood up. 1. Stroke: left PRICING STRATEGIST stroke --Off Xarelto, would hold for 2 weeks, continue ASA, discussed with Dr. Ortiz and Pt daughter the risk of hemmoragic conversion is high and no thrombus noted on echo as well no afib noted on monitor, at this point will continue to hold xarleto, after two weeks would use eliquis given lower bleed risk profile --Would strive for upper limits of normal with BP Check Orthostatics --Continue cholesterol control with goal LDL < 70. --Continue DM control. --She is a non smoker --Follow up Echo shows no thrombus --repeat CTs show now changes. --She will need PT/OT, may be a good candidate for inpatient rehab --Given the acute change she had this morning when standing, I wonder if she is getting orthostatic and may have some decreased perfusion when her blood pressure is low. We are going to check orthostatics this am. Her Right sided weakness seems to be the same as yesterday. My concern for new strokes is very low as she continues to have the same recurring findings that are intermittent. With cardioembolic TIAs or strokes, I would expect some new symptoms as well. With that said, I think it is reasonable to continue off anticoagulation for now, only antiplatelet, for 2 weeks and then resume Eliquis which has a slightly lower risk of bleeding. We will repeat CT with any new neurologic deficits. 2. Headache: Resolved at this point 3. Anemia: Would try to keep her Hgb > 8. - Patient Problems (1) CVA (cerebral vascular accident) Current Visit: No Status: Acute Code(s): I63.9 - CEREBRAL INFARCTION, UNSPECIFIED SNOMED Code(s): 531514495 Comment: Xarelto was held. cont ASA. Discussed with Dr. Baugh 09/30. Patient has orthostatic hypotension and this will limit her ability to stand. Carvediolol d/c's AM 09/30, midodrine started PM 09/30. cont PT/OT. clinically she is improving slowly. Still significant vision deficit , but ataxia is resolving. flattening on left nasolabial fold seen intermittently. expressive aphasia-began LDL optimal at 58-cont lipitor (2) Iron deficiency anemia Current Visit: Yes Status: Acute Code(s): D50.9 - IRON DEFICIENCY ANEMIA, UNSPECIFIED SNOMED Code(s): 38599900 Comment: Continue ferrous sulfate and IV ferric gluconate as per Dr. Campuzano. (3) Ulcerative colitis Current Visit: No Status: Acute Code(s): K51.90 - ULCERATIVE COLITIS, UNSPECIFIED, WITHOUT COMPLICATIONS SNOMED Code(s): 42417935 Comment: Not in exacerbation- Denies N/V/D/Abdominal pain. Cont Balsalazide. (4) Atrial fibrillation Current Visit: No Status: Acute Code(s): I48.91 - UNSPECIFIED ATRIAL FIBRILLATION SNOMED Code(s): 08775727 Comment: - Currently in dual-paced rhythm with occasional PVCs. - Continue rhythm control with dofetilide Off BB as of 09/30 AM. (5) Diabetes Current Visit: No Status: Acute Code(s): E11.9 - TYPE 2 DIABETES MELLITUS WITHOUT COMPLICATIONS SNOMED Code(s): 40007924 Comment: Continue sliding scale lispro. Holding metformin/ glipizide. Increase Lantus to 15 U start 09/30 4 PM. Status and Disposition: inpatient
[2018-09-30] MEDS: CMC:Midodrine (NF) 5 MG TAB PO SCH ×2 (15:22→21:02)
[2018-10-01] MEDS: Levothyroxine TAB* 25 MCG TAB PO SCH (06:11)
[2018-10-01] MEDS: Heparin VIAL(*) 5000 UNITS/ML VIAL (FIVE THOUSAND) SUBCUT SCH (06:12)
[2018-10-01 07:58] VITALS: BP 153/57
[2018-10-01] MEDS: BALSALAZIDE SODIUM 750 MG PO SCH (08:38)
[2018-10-01] MEDS: CMC:Midodrine (NF) 5 MG TAB PO SCH (08:50)
[2018-10-01] MEDS: Calcium/Vitamin D TAB 250/125* TAB PO SCH (08:50)
[2018-10-01] MEDS: Pantoprazole TAB * 40 MG TAB PO SCH (08:50)
[2018-10-01] MEDS: Aspirin EC TAB* 81 MG TAB.EC PO SCH (08:50)
[2018-10-01] MEDS: Ferrous Sulfate TAB* 325 MG PO SCH (08:50)
[2018-10-01] MEDS: Insulin LISPRO* 1 UNITS UNIT SUBCUT SCH (08:50)
[2018-10-01] MEDS: Multivitamins/Minerals TAB PO SCH (08:50)
[2018-10-01] MEDS: Dofetilide CAP* 125 MCG PO SCH (08:50)
[2018-10-01] MEDS: Atorvastatin* 80 MG TAB PO SCH (08:50)
[2018-10-01] MEDS: Ferric Gluconate IV* 125 MG in NS 0.9% 100 ML* 100 ML IVPB SCH (09:19)
--- NOTE | 2018-10-01 10:09 | DCNOTE ---
Subjective Date of Service: 10/01/18 Interval History: C/O fatigue, states she slept welll last night. No new c/o. Family History: Findings Social History: Findings Past Medical History: Findings Objective Active Medications: Acetaminophen (Tylenol Tab*) 650 mg PO Q4H PRN PRN Reason: FEVER/PAIN Last Admin: 09/30/18 11:41 Dose: 650 mg Hydrocodone Bitart/Acetaminophen ([place] 5-325 Tab*) 1 tab PO Q6H PRN PRN Reason: PAIN Albuterol (Ventolin Hfa Inhaler*) 2 puff INH Q4H PRN PRN Reason: SHORTNESS OF BREATH Aspirin (Aspirin Ec Tab*) 81 mg PO DAILY [facility] Last Admin: 10/01/18 08:50 Dose: 81 mg Atorvastatin Calcium (Lipitor*) 80 mg PO DAILY [facility] Last Admin: 10/01/18 08:50 Dose: 80 mg Balsalazide (Colazal Cap(Nf)) 1,500 mg PO BID [facility]; Protocol Last Admin: 10/01/18 08:38 Dose: Not Given Calcium/Vitamin D (Oscal D Tab 250/125*) 1 tab PO DAILY [facility] Last Admin: 10/01/18 08:50 Dose: 1 tab Dextrose (D50w Syringe 50 Ml*) 12.5 gm IV PUSH .FOR FS < 60 - SS PRN PRN Reason: FS < 60 Dofetilide (Tikosyn Cap*) 125 mcg PO BID [facility] Last Admin: 10/01/18 08:50 Dose: 125 mcg Ferrous Sulfate (Ferrous Sulfate Tab*) 325 mg PO BID [facility] Last Admin: 10/01/18 08:50 Dose: 325 mg Heparin Sodium (Porcine) (Heparin Vial(*)) 5,000 units SUBCUT Q8HR [facility] Last Admin: 10/01/18 06:12 Dose: 5,000 units Ferric Sodium Gluconate Complex 125 mg/ Sodium Chloride 110 mls @ 110 mls/hr IVPB DAILY [facility] Last Admin: 10/01/18 09:19 Dose: 110 mls/hr Insulin Glargine (Lantus(*)) 15 units SUBCUT Q24H [facility] Last Admin: 09/30/18 14:54 Dose: 15 units Insulin Human Lispro (Humalog*) 0 units SUBCUT ACHS [facility]; Protocol Last Admin: 10/01/18 08:50 Dose: 2 unit Levothyroxine Sodium (Synthroid Tab*) 12.5 mcg PO 0600 [facility] Last Admin: 10/01/18 06:11 Dose: 12.5 mcg Midodrine (Midodrine (Nf)) 5 mg PO TID [facility]; Protocol Last Admin: 10/01/18 08:50 Dose: 5 mg Multivitamins/Minerals (Theragran/Minerals Tab*) 1 tab PO DAILY [facility] Last Admin: 10/01/18 08:50 Dose: 1 tab Pantoprazole Sodium (Protonix Tab (Nf)) 40 mg PO DAILY [facility] Last Admin: 10/01/18 08:50 Dose: 40 mg Scopolamine (Transderm-Scop 1.5 Mg Patch*) 1 patch TRANSDERM Q72H [facility] Last Admin: 09/29/18 16:13 Dose: 1 patch Vital Signs - 8 hr 10/01/18 10/01/18 10/01/18 03:28 07:36 08:00 Temperature 98.3 F 97.8 F Pulse Rate 70 70 Respiratory 20 18 18 Rate Blood Pressure 153/54 153/57 (mmHg) O2 Sat by Pulse 94 99 Oximetry Oxygen Devices in Use Now: Nasal Cannula Appearance: Alert, partly up in bed. In fair spirits. Looks comfortable but weak. Eyes: No Scleral Icterus Neurological: Alert and Oriented x 3, NL Sensation - No facial assymetry. PARTHA. Knows her age, present month. Result Diagrams: 09/30/18 05:30 09/30/18 05:30 Microbiology and Other Data: Microbiology 09/28/18 18:35 Urine Culture - Final Urine 09/26/18 07:35 Stool Occult Blood ([facility]) - Final Stool Assess/Plan/Problems-Billing 83 year old with multiple stroke risk factors including AF on Xarelto and ASA, valvular heart disease s/p MV repair, HTN, DM, Hypercholesterolemia. 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 Got confused this morning when she stood up. 1. 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 Ortiz and Pt daughter the risk of hemmoragic conversion is high and no thrombus noted on echo as well no afib noted on monitor, at this point will continue to hold xarleto, after two weeks would use eliquis given lower bleed risk profile --Would strive for upper limits of normal with BP Check Orthostatics --Continue cholesterol control with goal LDL < 70. --Continue DM control. --She is a non smoker --Follow up Echo shows no thrombus --repeat CTs show now changes. --She will need PT/OT, may be a good candidate for inpatient rehab --Given the acute change she had this morning when standing, I wonder if she is getting orthostatic and may have some decreased perfusion when her blood pressure is low. We are going to check orthostatics this am. Her Right sided weakness seems to be the same as yesterday. My concern for new strokes is very low as she continues to have the same recurring findings that are intermittent. With cardioembolic TIAs or strokes, I would expect some new symptoms as well. With that said, I think it is reasonable to continue off anticoagulation for now, only antiplatelet, for 2 weeks and then resume Eliquis which has a slightly lower risk of bleeding. We will repeat CT with any new neurologic deficits. 2. Headache: Resolved at this point 3. Anemia: Would try to keep her Hgb > 8. - Patient Problems (1) CVA (cerebral vascular accident) Current Visit: No Status: Acute Code(s): I63.9 - CEREBRAL INFARCTION, UNSPECIFIED SNOMED Code(s): 121359203 Comment: Xarelto was held. cont ASA. Discussed with Dr. Baugh 09/30. Patient has orthostatic hypotension and this will limit her ability to stand. Carvediolol d/c's AM 09/30, midodrine started PM 09/30. Tolerating midodrine as of 10/01. (2) Iron deficiency anemia Current Visit: Yes Status: Acute Code(s): D50.9 - IRON DEFICIENCY ANEMIA, UNSPECIFIED SNOMED Code(s): 63751057 Comment: Continue ferrous sulfate and IV ferric gluconate as per Dr. Campuzano. (3) Ulcerative colitis Current Visit: No Status: Acute Code(s): K51.90 - ULCERATIVE COLITIS, UNSPECIFIED, WITHOUT COMPLICATIONS SNOMED Code(s): 25405043 Comment: Not in exacerbation- Denies N/V/D/Abdominal pain. Cont Balsalazide. (4) Atrial fibrillation Current Visit: No Status: Acute Code(s): I48.91 - UNSPECIFIED ATRIAL FIBRILLATION SNOMED Code(s): 95754322 Comment: - Currently in dual-paced rhythm with occasional PVCs. - Continue rhythm control with dofetilide Off BB as of 09/30 AM. (5) Diabetes Current Visit: No Status: Acute Code(s): E11.9 - TYPE 2 DIABETES MELLITUS WITHOUT COMPLICATIONS SNOMED Code(s): 16354461 Comment: Continue sliding scale lispro. Holding metformin/ glipizide. Continuee Lantus 15 U daily. (6) Renal insufficiency Current Visit: Yes Status: Acute Code(s): N28.9 - DISORDER OF KIDNEY AND URETER, UNSPECIFIED SNOMED Code(s): 138538847 Comment: Repeat BMP 10/02. Status and Disposition: inpatient
--- NOTE | 2018-10-01 10:37 | PN ---
Progress Note - Progress Note Date of Service: 10/01/18 Note: Time spent on discharge including exam of patient, discussion with patient, CM, Dr. Moody, nurse, Dr. Cody, review of EMR and preparation of discharge documents is 45 minutes.
--- NOTE | 2018-10-01 13:42 | TRS ---
CC: Dr. Vanessa Gómez * DATE OF ADMISSION: 09/25/2018. DATE OF TRANSFER: 10/01/2018. HISTORY OF PRESENT ILLNESS AND HOSPITAL COURSE: This 83-year-old woman presented with facial droop, headache, slurred speech, and difficulty walking. The history is detailed in the admission note. She cannot have an MRI because she has a pacemaker. She was evaluated by Neurology. She had four CAT scans of the head. The last one on 09/29/2018 showed a subacute ischemic infarct in the left posterior cerebral artery distribution without significant change and mild mass effect. It was negative for intracranial hemorrhage. Her Rivaroxaban was discontinued on admission in view of the large size of the stroke. It was felt that it should be not continued for two weeks from the onset of the stroke. She was continued on aspirin, however. She had fluctuating symptoms felt to be related to orthostatic hypotension. They would come and go very rapidly and were definitely related to her position. She was seen by Dr. Campuzano and found to have iron deficiency anemia and was started on a combination of oral and intravenous iron supplementation. Her Metformin and Glipizide are on hold, but these could probably be restarted at any time. Due to her orthostatic hypotension, her Carvedilol was discontinued. She remained in pace rhythm at about 70 to 72. She should continue on her Dofetilide for rhythm control. Midodrine was added because even after stopping the Carvedilol, she continued to have orthostatic hypotension with exacerbation of her neurologic deficit. She seemed to tolerate the initial dose of Midodrine 5 mg t.i.d. quite well, and I would observe her on this for indefinitely. FINAL DIAGNOSES: 1. Cerebral vascular accident. 2. Iron deficiency anemia. 3. Ulcerative colitis. 4. Atrial fibrillation. 5. Diabetes. MEDICATIONS ON TRANSFER: 1. Acetaminophen 650 mg every 4 hours prn. 2. Albuterol inhaler two puffs every 4 hours prn. 3. Aspirin 81 mg daily. 4. Atorvastatin 80 mg daily. 5. Balsalazide 1,500 mg b.i.d. 6. Calcium with vitamin D one tablet daily. 7. Dofetilide 125 mcg b.i.d. 8. Ferric Gluconate 125 mg IV daily. 9. Heparin 5,000 units subcu every 8 hours. 10. Glargine insulin 15 units subcu daily. 11. Levothyroxine 12.5 mcg daily. 12. Midodrine 5 mg t.i.d. 13. Multivitamin with mineral one daily. 14. Pantoprazole 40 mg daily. 15. Scopolamine 1.5 mg patch every 72 hours. CONDITION ON TRANSFER: stable DISPOSITION ON TRANSFER: transfer to [facility] [id number]/[facility] #: [id number] [facility]
== END 2018-10-01 11:28 | DRG 65 ==
LOC: ED 14:18 → MEDTELE 19:43
PROVIDERS: ADMIT Nurse Practitioner; ATTEND Internal Medicine
PROC: 30233N1 Transfusion of Nonautologous Red Blood Cells into Peripheral Vein, Percutaneous Approach (ICD-10-PCS; principal; 2018-09-28)
DX: I63.532 Cerebral infarction due to unspecified occlusion or stenosis of left posterior cerebral artery (principal); K51.90 Ulcerative colitis, unspecified, without complications; G81.91 Hemiplegia, unspecified affecting right dominant side; I50.22 Chronic systolic (congestive) heart failure; I47.2 Ventricular tachycardia; N17.9 Acute kidney failure, unspecified; E78.5 Hyperlipidemia, unspecified; E11.9 Type 2 diabetes mellitus without complications; R51 Headache; I25.10 Atherosclerotic heart disease of native coronary artery without angina pectoris; I44.7 Left bundle-branch block, unspecified; I25.5 Ischemic cardiomyopathy; R47.81 Slurred speech; R29.810 Facial weakness; I48.2 Chronic atrial fibrillation; E11.42 Type 2 diabetes mellitus with diabetic polyneuropathy; D50.9 Iron deficiency anemia, unspecified; K21.9 Gastro-esophageal reflux disease without esophagitis; E03.9 Hypothyroidism, unspecified; G47.30 Sleep apnea, unspecified; N28.9 Disorder of kidney and ureter, unspecified; R26.2 Difficulty in walking, not elsewhere classified; I95.1 Orthostatic hypotension; Z79.82 Long term (current) use of aspirin; R29.701 NIHSS score 1; J45.909 Unspecified asthma, uncomplicated; R40.2412 Glasgow coma scale score 13-15, at arrival to emergency department; R15.9 Full incontinence of feces; I11.0 Hypertensive heart disease with heart failure; I25.2 Old myocardial infarction; Z79.01 Long term (current) use of anticoagulants; Z88.8 Allergy status to other drugs, medicaments and biological substances; Z95.5 Presence of coronary angioplasty implant and graft; Z95.2 Presence of prosthetic heart valve; Z95.810 Presence of automatic (implantable) cardiac defibrillator; Z82.49 Family history of ischemic heart disease and other diseases of the circulatory system; Z90.710 Acquired absence of both cervix and uterus; Z79.4 Long term (current) use of insulin
CPT/HCPCS: 36415; 70450; 70496; 70498; 71045; 80048; 80053; 80061; 81003; 81015; 82270; 82607; 82728; 82746; 83036; 83540; 83550; 83605; 83735; 84443; 84484; 85014; 85018; 85025; 85027; 85045; 85610; 85652; 85730; 86140; 86850; 86900; 86901; 86922; 87086; 93005; 93306; 97530; 99223; 99284; A9270-GY; G0515-GO; G8978-GP-CK; G8979-GP-CI; G8987-GO-CK; G8987-GO-CM; G8988-GO-CI; J1644; J1940; J2916; J3475; P9040; Q9967

== ENCOUNTER 2018-10-01 10:05 | Inpatient (IN) | payer MEDICARE, BC ==
[2018-10-01] MEDS ORDERED: Magnesium Hydroxide LIQ* 30 ML UDC PO PRN (12:42)
[2018-10-01] MEDS ORDERED: Senna TAB PO PRN (12:42)
[2018-10-01] MEDS ORDERED: Midodrine (NF) 5 MG TAB PO SCH (14:00)
[2018-10-01] MEDS: CMC: Midodrine (NF) 5 MG TAB PO SCH ×2 (17:12→18:34)
[2018-10-01] MEDS: Insulin LISPRO* 1 UNITS UNIT SUBCUT SCH ×2 (17:17→22:14)
[2018-10-01] MEDS: Heparin VIAL(*) 5000 UNITS/ML VIAL (FIVE THOUSAND) SUBCUT SCH ×2 (17:18→22:14)
--- NOTE | 2018-10-01 18:56 | HP ---
ADMISSION HISTORY AND PHYSICAL: DATE OF ADMISSION: 10/01/18 REASON FOR ADMISSION: Left posterior cerebral artery CVA. HISTORY OF ILLNESS: Sonal Anderson is an 83-year-old female. She lives independently in a trailer at [place]. She was with her son on . She started complaining of a headache and had slurred speech. Her son called his [id number] who works for [employer], who advised him to call 911. She was brought to the emergency room and a code zee was called. Upon arrival to the ED, no facial droop was seen. A CT scan of the brain was done which showed chronic white matter changes, but no evidence of a new intracranial hemorrhage or stroke. She was evaluated by Dr. Okeefe from Neurology. The patient was admitted acutely to the medical service. She was noted to have word -finding difficulty. She had a neurology consult as mentioned, done by Dr. Okeefe. Dr. Okeefe thought she might have temporal arteritis and recommended checking a sed rate. He also noted that she cannot have an MRI because of her pacemaker, but felt she was not a candidate for TPA because she was on Xarelto for her atrial fibrillation. The patient was admitted. She was seen in followup by Dr. Baugh. Her sed rate was normal, so Dr. Baugh did not feel she had temporal arteritis. She did have a followup CAT scan showing hypodensity in the left occipital lobe consistent with a left posterior cerebral artery stroke. 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 Baugh recommended holding her Xarelto for 2 weeks because of the size of her stroke. He was worried about a hemorrhagic transformation. He recommended continuing on her aspirin and continuing blood sugar control. After 2 weeks, she could have another CAT scan and then restart her Xarelto. Her headache started slowly to improve. The patient had some confusion as well as some difficulty with vision and naming. It is felt that she has physical therapy, occupational therapy, and speech therapy needs. She is now being admitted for inpatient rehab so that she might return to independent living. Of note, the patient became very orthostatic on the medical service. She was started on midodrine to help raise her blood pressure. [place] is now being [place] inpatient [place]hab so that she might return to independent living. PAST MEDICAL HISTORY: Significant for diabetes. She has a history of ulcerative colitis, iron deficiency anemia for which she is getting iron supplementation, atrial fibrillation. She has, in addition, a history of having had a pacemaker placed, coronary artery disease, myocardial infarct in the past, mitral valve replacement, sleep apnea with CPAP, and gastroesophageal reflux disease. CURRENT MEDICATIONS: Include: 1. Aspirin. 2. Lipitor. 3. Colazal for ulcerative colitis. 4. She is on Tikosyn. 5. Lantus insulin. 6. Humalog. 7. Synthroid. 8. Midodrine. 9. Protonix. ALLERGIES: PREDNISONE, although her reaction was that she went into atrial fibrillation. SOCIAL HISTORY: She lives by herself in a trailer at [place]. She is a nonsmoker, nondrinker. She has 2 children living in the area. There are 3 steps to enter. REVIEW OF SYSTEMS: The patient reports no current shortness of breath or chest pain. PHYSICAL EXAMINATION VITAL SIGNS: The patient's temperature is 98.1, blood pressure is 165/66, pulse 74, respirations 18. HEENT: Her extraocular movements are intact. Tongue is midline. NECK: Supple. LUNGS: Sound clear to auscultation bilaterally. HEART: Sounds are regular. S1 and S2 were audible. ABDOMEN: Soft and nontender. EXTREMITIES: Showed normal muscle bulk and tone. Peripheral pulses were intact. NEUROLOGIC: The patient appears to have a visual field cut to the right. She also has trouble visualizing anything below her waist. Her muscle strength test is pretty good on both the left and the right side. I did not detect much weakness or facial droop. FUNCTIONAL EXAM: The patient transfers with minimal amount of assistance. 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 PLAN: Integrate her into a comprehensive and therapeutic rehab program with the following goals: 1. Physical Therapy will see the patient. They are going to work on functional transfer training, ambulation training. 2. Occupational Therapy will see the patient, work on her activities of daily living including toileting and toilet transfers. 3. Speech Therapy will see the patient and work on her word finding problems. 4. Heparin for DVT prophylaxis. 5. For orthostatic hypotension, we will continue her midodrine. We are going to stop her scopolamine patch which was started on the acute service. 6. For her diabetes, we will continue Lantus and sliding scale, but may go back to her oral medications which include metformin and glipizide. 7. For her atrial fibrillation, we will continue her on Tikosyn. She may go back on Coreg if her blood pressure allows it. After 2 weeks, we will restart her Xarelto. 8. For her iron deficiency anemia, we will continue iron supplementations. 9. Family training as appropriate. 10. Horticultural Agent will be closely involved to make sure that any services and equipment that the patient requires are in place prior to discharge. 11. Home with appropriate services. ESTIMATED LENGTH OF STAY: 2 weeks. [id number]/[facility] #: [id number] AM[facility]
[2018-10-01] MEDS ORDERED: Insulin GLARGINE(*) 1 UNITS UNIT SUBCUT SCH (20:00)
[2018-10-01] MEDS ORDERED: QUEtiapine TAB* 25 MG PO ONE (22:00)
[2018-10-01] MEDS: Dofetilide CAP* 125 MCG PO SCH (22:15)
[2018-10-01] MEDS: BALSALAZIDE SODIUM 750 MG PO SCH (22:16)
[2018-10-01] MEDS: Docusate CAP* 100 MG PO SCH (22:16)
[2018-10-02] MEDS: CMC: Midodrine (NF) 5 MG TAB PO SCH ×2 (00:10→10:37)
[2018-10-02] MEDS: Heparin VIAL(*) 5000 UNITS/ML VIAL (FIVE THOUSAND) SUBCUT SCH ×3 (05:54→21:38)
[2018-10-02] MEDS: Levothyroxine TAB* 25 MCG TAB PO SCH (05:55)
[2018-10-02 06:53] LABS: ABS Basophils 0 10^3/ul (0-0.2); ABS Eosinophils 0.2 10^3/ul (0-0.6); ABS Lymphocytes 2.8 10^3/ul (1.0-4.8); ABS Monocytes 1.3 10^3/ul (0-0.8); ABS Neutrophils 6.6 10^3/ul (1.5-7.7); ABS Nucleated RBC 0 10^3/ul; Eosinophil % 1.5 %; Hematocrit 30 % (35-47); Lymphocyte % 25.4 %; Mean Corpuscular HGB Conc 34 g/dl (31-36); Mean Corpuscular Hemoglobin 29 pg (27-31); Mean Corpuscular Volume 85 fL (80-97); Nucleated Red Blood Cells % 0.1; Platelet Count 233 10^3/ul (150-450); Red Blood Count 3.47 10^6/ul (4.00-5.40); Red Cell Distribution Width 17 % (10.5-15); White Blood Count 10.9 10^3/ul (3.5-10.8)
[2018-10-02 07:11] LABS: Albumin 3.4 g/dL (3.2-5.2); BUN/Creatinine Ratio 20.5 (8-20); Calcium 9.8 mg/dL (8.6-10.3); EGFR African American 55.9 (>60); EGFR Non-African American 46.2 (>60); Globulin 3.5 g/dL (2-4); Potassium 3.9 mmol/L (3.5-5.0); Total Bilirubin 0.5 mg/dL (0.2-1.0); Total Protein 6.9 g/dL (6.4-8.9)
[2018-10-02] MEDS: Insulin LISPRO* 1 UNITS UNIT SUBCUT SCH ×4 (10:34→20:47)
[2018-10-02] MEDS: Calcium/Vitamin D TAB 250/125* TAB PO SCH (10:36)
[2018-10-02] MEDS: Aspirin EC TAB* 81 MG TAB.EC PO SCH (10:36)
[2018-10-02] MEDS: Pantoprazole TAB * 40 MG TAB PO SCH (10:37)
[2018-10-02] MEDS: Ferrous Sulfate TAB* 325 MG PO SCH (10:37)
[2018-10-02] MEDS: Docusate CAP* 100 MG PO SCH ×2 (10:37→20:47)
[2018-10-02] MEDS: Dofetilide CAP* 125 MCG PO SCH ×2 (10:37→20:46)
[2018-10-02] MEDS: BALSALAZIDE SODIUM 750 MG PO SCH ×2 (10:38→20:47)
[2018-10-02] MEDS: Acetaminophen TAB* 325 MG PO PRN (11:25)
--- NOTE | 2018-10-02 13:00 | PMRUTEAM ---
PMRU: Team Meeting Current Status: Nursing: Current Status Skin Deviation Description [ none none] Physical Therapy: Current Status Bed Mobility Assistance Min Assist Transfer Mobility Assistance Min Assist Transfer/Bed Mobility Rolling Walker Recommended Devices Ambulation Assistance Min Assist Ambulation Assistive Devices Rolling Walker Number of Feet Patient 120 Ambulated Stairs Assistance Not Tested Stairs Recommended Devices Two Rails Number of Stairs 3 Occupational Therapy: Current Status Upper Body Dressing Mod Assist,Max Asst Lower Body Dressing Max Asst Bathing Mod Assist Toileting Max Asst Toilet Transfer Min Assist Eating Min Assist Rec Therapy: Current Status Summary of Assessment and Pt. had a difficult time answering questions and Clinical Impression carrying on a conversation about her leisure interests and involvement. Pt. did agree to many activities listed and information that was obtained by pt.'s [id number]. Pt. participated in pet therapy. Pt. declined other activities for enjoyment and diversion. Treatment Goals Pt. will engage in leisure activities while on the unit. Treatment Plan Provide RT services and encourage involvement. Social Work: Current Status Discharge Plan return to the community with family support and community services as needed Potential for Family Training TBD Anticipated Discharge Assisted Living Destination Anticipated Discharge pt's family are uncertain of her discharge Destination Comment disposition Discharge With family support and community services as needed SPEECH LANGUAGE PATHOLOGY: Word finding difficulties. STM problems, Swallowing is functional, right visual field cut, reading some functional reading, only in context Goals: Physical Therapy: Initial Goals Bed Mobility Assistance Supervision Transfer Mobility Assistance Supervision Transfer/Bed Mobility Rolling Walker Recommended Devices Ambulation Supervision Ambulation Recommended Devices Rolling Walker Ambulation Distance 150 Stairs Assistance Supervision Stair Recommended Devices One Rail Number of Stairs 12 Physical Therapy: Updated Goals Transfer/Bed Mobility Rolling Walker Recommended Devices Occupational Therapy: Initial Goals Goals to be Completed in (Days 14-21 ) Upper Body Bathing Routine Supervision/Set Up Lower Body Bathing Routine Supervision/Set Up Upper Body Dressing Routine Supervision/Set Up Lower Body Dressing Routine Supervision/Set Up Toilet Hygeine and Clothing Supervision/Set Up Management Routine Toilet Transfer Routine Supervision/Set Up Tub Transfer Routine Supervision/Set Up Functional Transfers for ADL Supervision/Set Up Grooming Routine Supervision/Set Up Feeding Routine Supervision/Set Up Social Work: Goals Discharge Plan return to the community with family support and community services as needed Potential for Family Training TBD Anticipated Discharge Assisted Living Destination Anticipated Discharge pt's family are uncertain of her discharge Destination Comment disposition Discharge With family support and community services as needed Care Plan: Care Plan ADL's - Improve/Maintain Start: 10/02/18 08:47 Freq: DAILY Status: Active Target: Protocol: Activity Type Activity Date Activity User E-Sign Co-Sign Detail Recorded Client Recorded Date Recorded By Document 10/02/18 08:48 [id number] 10/02/18 08:49 [id number] 10/02/18 08:48 PMRU Outcome: ADL's/ADL Transfers Orders/Interventions Occupational Therapy Evaluation & Treatment Communication Tool in Patient Room Device Yes Address Deficits Secondary To: CVA Patient to receive OT 5x/wk for 60-120 Therex min/day Self Care Management Group Therapy Neuromuscular ReEducation UE/LE ADL's with Assist Yes: supervision ADL Transfers with Assist Yes: supervision Toileting: Transfers,Clothing Management Yes: ,Hygeine w/Assist supervision Light Kitchen/Laundry w/Assist No Progression Toward Outcome/Goals Progressing Outcome/Goals Met Pt with difficulty maintaining eyes open, moving much more slowly this am, decreased attention noted to RUE when standing from commode requiring physical and v/ c's to place right hand on walker. Unsafe to attempt breakfast with pt at this time due to decreased SAMPSON, CLERK OF WORKS/RN aware. Communication-Improve/Maintain Start: 10/01/18 12:54 Freq: DAILY Status: Active Target: Protocol: Activity Type Activity Date Activity User E-Sign Co-Sign Detail Recorded Client Recorded Date Recorded By Document 10/02/18 01:25 [id number] [id number] 10/02/18 01:26 [id number] 10/02/18 01:25 PMRU Outcome: Communication/Cognitive Status Outcome/Goals Use Comm Tools/ Devices Makes Needs Known Effectively Progression Toward Outcomes/Goals Not Progressing DVT Prophylaxis- Improve/Maintain Start: 10/01/18 12:54 Freq: QSHIFT Status: Active Target: Protocol: Activity Type Activity Date Activity User E-Sign Co-Sign Detail Recorded Client Recorded Date Recorded By Document 10/02/18 01:26 [id number] 10/02/18 01:27 [id number] 10/02/18 01:26 PMRU Outcome: DVT Prophylaxis Outcome/Goals Remains Free of DVT Complies with DVT Prophylaxis /Treatment Demonstrates Knowledge of DVT Prevention/ Treatment TEDS Stockings on Every AM, Off at HS Progression Toward Outcome/Goals Progressing Discharge Planning - Improve/Maintain Start: 10/01/18 12:54 Freq: DAILY Status: Active Target: Protocol: Activity Type Activity Date Activity User E-Sign Co-Sign Detail Recorded Client Recorded Date Recorded By Document 10/02/18 01:25 [id number] 10/02/18 01:26 [id number] 10/02/18 01:25 PMRU Outcome: Discharge Planning Update Patient Family No Outcome/Goals Demonstrates Understanding of Discharge Plan Progression Toward Outcome/Goals Not Progressing Education-Improve/Maintain Start: 10/01/18 12:54 Freq: QSHIFT Status: Active Target: Protocol: Activity Type Activity Date Activity User E-Sign Co-Sign Detail Recorded Client Recorded Date Recorded By Document 10/02/18 01:26 [id number] 10/02/18 01:27 [id number] 10/02/18 01:26 PMRU Outcome: Education Outcome/Goals Encourage Questions Progression Toward Outcome/Goals Progressing /GI-Improve/Maintain Start: 10/01/18 12:54 Freq: QSHIFT Status: Active Target: Protocol: Activity Type Activity Date Activity User E-Sign Co-Sign Detail Recorded Client Recorded Date Recorded By Document 10/02/18 01:26 [id number] 10/02/18 01:27 [id number] 10/02/18 01:26 PMRU Outcome: Genitourinary/ Gastrointestinal Genitourinary- Outcome/Goals Maintain/ Achieve Urinary Continence Remain Free of Hospital- Acquired UTI Gastrointestinal-Outcome/Goals Maintain/ Achieve Bowel Regularity in Accordance with Pt's Baseline Prevent Constipation Laxatives as Ordered Progression Toward Outcome/Goals - Progressing Progression Toward Outcome/Goals - GI Progressing Medication Administration Start: 10/01/18 12:54 Freq: QSHIFT Status: Active Target: Protocol: Activity Type Activity Date Activity User E-Sign Co-Sign Detail Recorded Client Recorded Date Recorded By Document 10/02/18 01:26 [id number] 10/02/18 01:27 10/02/18 01:26 PMRU Outcome: Medication Administration Assess Patient Knowledge/Teach Med Yes Education for all Meds Outcome/Goals Patient Independent with Medication Administration at Home Demonstrates Understanding Is Patient Going Home on Lovenox? No Metabolic Status- Improve/Maintain Start: 10/01/18 12:54 Freq: QSHIFT Status: Active Target: Protocol: Activity Type Activity Date Activity User E-Sign Co-Sign Detail Recorded Client Recorded Date Recorded By Document 10/02/18 01:26 [id number] 10/02/18 01:27 [id number] 10/02/18 01:26 PMRU Outcome: Metabolic Status Have Fingersticks Been Ordered Yes Fingerstick Order Frequency AC & HS Outcome/Goals Maintain/ Improve Metabolic Status Demonstrate Knowledge of Prevention/ Treatment of Metabolic Imbalances Progression Toward Outcome/Goals Progressing Mobility- Improve/Maintain Start: 10/01/18 16:49 Freq: DAILY Status: Active Target: Protocol: Activity Type Activity Date Activity User E-Sign Co-Sign Detail Recorded Client Recorded Date Recorded By Document 10/01/18 16:49 [id number] 10/01/18 16:50 [id number] 10/01/18 16:49 PMRU Outcome: Mobility Physical Therapy Evaluation and Yes Treatment Activity OOB with Assistance Yes Device Yes: FWW Assistance Yes: Min A Patient to be seen 5x/wk for 60-120 min/ Therex day for: Mobility Training Gait Training Balance Outcome/Goals Maintain/ Achieve Baseline Mobility Status Improve Mobility Status Demonstrates Proper Use of Assistive Devices Free from Complications of Immobility Bed Mobility Yes: Supervision Transfers Yes: S with FWW Gait x ft Yes: S with [id number] Up/Down Stairs Yes: S with 1 rail x1 flight With HEP Yes: Supervision Neurological- Improve/Maintain Start: 10/01/18 12:54 Freq: QSHIFT Status: Active Target: Protocol: Activity Type Activity Date Activity User E-Sign Co-Sign Detail Recorded Client Recorded Date Recorded By Document 10/02/18 01:26 [id number] 10/02/18 01:27 [id number] 10/02/18 01:26 PMRU Outcome: Neurological Weakness/Aphasia Weakness Outcome/Goals Maintain/ Achieve Baseline Neurological Status Improve Neurological Status Prevent Avoidable Neurological Decline Maintain/ Improve Strength/ROM Progression Toward Outcome/Goals Progressing Safety- Improve/Maintain Start: 10/01/18 12:54 Freq: QSHIFT Status: Active Target: Protocol: Activity Type Activity Date Activity User E-Sign Co-Sign Detail Recorded Client Recorded Date Recorded By Document 10/02/18 01:26 [id number] 10/02/18 01:27 [id number] 10/02/18 01:26 PMRU Outcome: Safety Outcome/Goals Remain Free of Injury or Harm Cooperates with Safety Measures for Least Restrictive Environment Prevent Falls/ Injury Progression Toward Outcome/Goals Progressing Medicine Note: Length of Stay: 3 weeks Anticipated Discharge Destination: Assisted Living Tentative Discharge Date: 10/23/18 Discharged to: [facility]
[2018-10-02] MEDS: CMCS: Midodrine (NF) 5 MG TAB PO SCH ×2 (13:30→20:58)
[2018-10-02] MEDS ORDERED: LORazepam TAB(*) 0.5 MG PO PRN (15:22)
--- NOTE | 2018-10-02 15:32 | PN ---
Progress Note Date of Service: 10/02/18 Note: DANIEL PEARL was visited. Therapy notes read and reviewed. She was discussed in interdisciplinary plan of care rounds. She had a rough night last night and became very agitated and confused. An order of Seroquel, 12.5 mg was given. Patient settled down, but had difficulty waking this am. Her BP is better, will lower Midodrine, perhaps Scopolamine contributed to orthostasis Current Medications: Active Medications Generic Name Dose Route Start Last Admin Trade Name Freq PRN Reason Stop Dose Admin Acetaminophen 650 mg 10/01/18 12:42 10/02/18 11:25 Tylenol Tab* PO 650 mg Q6H PRN Administration FEVER/HEADACHE Aspirin 81 mg 10/02/18 09:00 10/02/18 10:36 Aspirin Ec Tab* PO 81 mg DAILY ARIES Administration Atorvastatin Calcium 80 mg 10/02/18 17:00 Lipitor* PO 1700 ARIES Balsalazide 1,500 mg 10/01/18 21:00 10/02/18 10:38 Colazal Cap(Nf) PO Not Given BID [facility] Protocol Calcium/Vitamin D 1 tab 10/02/18 09:00 10/02/18 10:36 Oscal D Tab 250/125* PO 1 tab DAILY ARIES Administration Docusate Sodium 100 mg 10/01/18 21:00 10/02/18 10:37 Colace Cap* PO 100 mg BID ARIES Administration Dofetilide 125 mcg 10/01/18 21:00 10/02/18 10:37 Tikosyn Cap* PO 125 mcg BID ARIES Administration Ferrous Sulfate 325 mg 10/02/18 09:00 10/02/18 10:37 Ferrous Sulfate Tab* PO 325 mg DAILY ARIES Administration Glipizide 2.5 mg 10/02/18 17:00 Glucotrol Tab* PO 0800,1700 [facility] Heparin Sodium (Porcine) 5,000 units 10/01/18 14:00 10/02/18 13:30 Heparin Vial(*) SUBCUT 5,000 units Q8HR ARIES Administration Insulin Glargine 10 units 10/02/18 15:25 Lantus(*) SUBCUT Q24H ARIES Insulin Human Lispro 0 units 10/01/18 16:30 10/02/18 13:30 Humalog* SUBCUT 2 units ACHS ARIES Administration Protocol Levothyroxine Sodium 12.5 mcg 10/02/18 06:00 10/02/18 05:55 Synthroid Tab* PO 12.5 mcg DAILY@0600 ARIES Administration Lorazepam 0.5 mg 10/02/18 15:22 Ativan Tab(*) PO Q6H PRN AGITATION Magnesium Hydroxide 30 ml 10/01/18 12:42 Milk Of Magnesia Liq* PO Q6H PRN CONSTIPATION Metformin HCl 500 mg 10/02/18 17:00 Glucophage* PO 0800,1700 ARIES Midodrine 2.5 mg 10/02/18 14:00 10/02/18 13:30 Midodrine (Nf) PO 2.5 mg TID ARIES Administration Protocol Pantoprazole Sodium 40 mg 10/02/18 09:00 10/02/18 10:37 Protonix Tab (Nf) PO 40 mg DAILY ARIES Administration Senna 2 tab 10/01/18 12:42 Senokot Tab* PO BEDTIME PRN CONSTIPATION Vital Signs: Vital Signs Temp Pulse Resp BP Pulse Ox 98.6 F 73 16 148/52 98 10/02/18 05:49 10/02/18 05:49 10/02/18 05:49 10/02/18 06:00 10/02/18 08:00 Lab Results: Laboratory Results - last 24 hr 10/01/18 10/01/18 10/02/18 16:47 20:24 06:28 WBC 10.9 H RBC 3.47 L Hgb 10.0 L Hct 30 L MCV 85 MCH 29 MCHC 34 RDW 17 H Plt Count 233 MPV 8.0 Neut % (Auto) 61.0 Lymph % (Auto) 25.4 [place] % (Auto) 11.7 Eos % (Auto) 1.5 Baso % (Auto) 0.4 Absolute Neuts (auto) 6.6 Absolute Lymphs (auto) 2.8 Absolute Monos (auto) 1.3 H Absolute Eos (auto) 0.2 Absolute Basos (auto) 0 Absolute Nucleated RBC 0 Nucleated RBC % 0.1 Sodium Potassium Chloride Carbon Dioxide Anion Gap BUN Creatinine Est GFR ( Amer) Est GFR (Non-Af Amer) BUN/Creatinine Ratio Glucose POC Glucose (mg/dL) 235 H 259 H Calcium Total Bilirubin AST ALT Alkaline Phosphatase Total Protein Albumin Globulin Albumin/Globulin Ratio 10/02/18 10/02/18 10/02/18 06:28 07:40 11:42 WBC RBC Hgb Hct MCV MCH MCHC RDW Plt Count MPV Neut % (Auto) Lymph % (Auto) [place] % (Auto) Eos % (Auto) Baso % (Auto) Absolute Neuts (auto) Absolute Lymphs (auto) Absolute Monos (auto) Absolute Eos (auto) Absolute Basos (auto) Absolute Nucleated RBC Nucleated RBC % Sodium 136 Potassium 3.9 Chloride 104 Carbon Dioxide 24 Anion Gap 8 BUN 23 Creatinine 1.12 H Est GFR ( Amer) 55.9 Est GFR (Non-Af Amer) 46.2 BUN/Creatinine Ratio 20.5 H Glucose 134 H POC Glucose (mg/dL) 150 H 162 H Calcium 9.8 Total Bilirubin 0.50 AST 27 ALT 14 Alkaline Phosphatase 83 Total Protein 6.9 Albumin 3.4 Globulin 3.5 Albumin/Globulin Ratio 1.0 Exam: HEENT: Head NC/AT, EOMI LUNGS: Clear HEART: regular rhythm ABDOMEN: Soft EXTREMITIES: peripheral pulses intact. Normal tone NEUROLOGIC: Rt homonymous hemianopsia, has trouble with visual field below waist. Motor strength good Assessment/Plan: 10/02/18 15:32 1. 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 ASA, will resume NOAC in [address] of head neg 2. Diabetes: Resume Metformin and glipizide,, start glipizide at 2.5, cut back Lantus 3. Delirium: Seroquel helped but sedated. Try Ativan if needed 4. Atrial fibrillation: On Tikosyn; will resume NOAC in 12 days 5. Orthostasis: Resolved. Will see if she still needs Midodrine. WIll cut back 6. Hypothyroid: Synthroid 7. DVT Prophylaxis: Heparin S/Q 8. Ulcerative Colitis: Colazol 9. Iron Deficiency Anemia: Iron Supplement 10. Advance Directives: Son is HCP. Full code 10/02/18 15:38 10/02/18 15:39 10/02/18 15:40
[2018-10-02] MEDS: Insulin GLARGINE(*) 1 UNITS UNIT SUBCUT SCH (16:00)
[2018-10-02] MEDS: glipiZIDE TAB* 5 MG PO SCH (17:03)
[2018-10-02] MEDS: Atorvastatin* 80 MG TAB PO SCH (17:03)
[2018-10-02] MEDS: metFORMIN* 500 MG TAB PO SCH (17:04)
[2018-10-03] MEDS: Heparin VIAL(*) 5000 UNITS/ML VIAL (FIVE THOUSAND) SUBCUT SCH ×3 (05:49→21:00)
[2018-10-03] MEDS: Levothyroxine TAB* 25 MCG TAB PO SCH (05:49)
[2018-10-03] MEDS: glipiZIDE TAB* 5 MG PO SCH ×2 (07:45→17:24)
[2018-10-03] MEDS: metFORMIN* 500 MG TAB PO SCH ×2 (07:46→17:23)
[2018-10-03] MEDS: Insulin LISPRO* 1 UNITS UNIT SUBCUT SCH ×4 (07:46→21:00)
[2018-10-03] MEDS: CMCS: Midodrine (NF) 5 MG TAB PO SCH ×2 (09:00→14:43)
[2018-10-03] MEDS: Docusate CAP* 100 MG PO SCH ×2 (09:01→20:58)
[2018-10-03] MEDS: Dofetilide CAP* 125 MCG PO SCH ×2 (09:01→20:58)
[2018-10-03] MEDS: Aspirin EC TAB* 81 MG TAB.EC PO SCH (09:02)
[2018-10-03] MEDS: Calcium/Vitamin D TAB 250/125* TAB PO SCH (09:02)
[2018-10-03] MEDS: Ferrous Sulfate TAB* 325 MG PO SCH (09:02)
[2018-10-03] MEDS: Pantoprazole TAB * 40 MG TAB PO SCH (09:02)
[2018-10-03] MEDS: BALSALAZIDE SODIUM 750 MG PO SCH ×2 (09:04→20:58)
[2018-10-03] MEDS: Acetaminophen TAB* 325 MG PO PRN (12:23)
--- NOTE | 2018-10-03 14:15 | PN ---
Progress Note Date of Service: 10/03/18 Note: DANIEL PEARL was visited. Therapy notes read and reviewed. She was able to walk fairly well with staff today. She did fairly well. A little sedate this am. Current Medications: Active Medications Generic Name Dose Route Start Last Admin Trade Name Freq PRN Reason Stop Dose Admin Acetaminophen 650 mg 10/01/18 12:42 10/03/18 12:23 Tylenol Tab* PO 650 mg Q6H PRN Administration FEVER/HEADACHE Aspirin 81 mg 10/02/18 09:00 10/03/18 09:02 Aspirin Ec Tab* PO 81 mg DAILY [facility] Administration Atorvastatin Calcium 80 mg 10/02/18 17:00 10/02/18 17:03 Lipitor* PO 80 mg 1700 [facility] Administration Balsalazide 1,500 mg 10/01/18 21:00 10/03/18 09:04 Colazal Cap(Nf) PO Not Given BID [facility] Protocol Calcium/Vitamin D 1 tab 10/02/18 09:00 10/03/18 09:02 Oscal D Tab 250/125* PO 1 tab DAILY [facility] Administration Docusate Sodium 100 mg 10/01/18 21:00 10/03/18 09:01 Colace Cap* PO 100 mg BID [facility] Administration Dofetilide 125 mcg 10/01/18 21:00 10/03/18 09:01 Tikosyn Cap* PO 125 mcg BID [facility] Administration Ferrous Sulfate 325 mg 10/02/18 09:00 10/03/18 09:02 Ferrous Sulfate Tab* PO 325 mg DAILY [facility] Administration Glipizide 5 mg 10/03/18 17:00 Glucotrol Tab* PO 0800,1700 [facility] Heparin Sodium (Porcine) 5,000 units 10/01/18 14:00 10/03/18 05:49 Heparin Vial(*) SUBCUT 5,000 units Q8HR [facility] Administration Insulin Glargine 10 units 10/02/18 15:30 10/02/18 16:00 Lantus(*) SUBCUT 10 units Q24H [facility] Administration Insulin Human Lispro 0 units 10/01/18 16:30 10/03/18 11:27 Humalog* SUBCUT 4 units ACHS [facility] Administration Protocol Levothyroxine Sodium 12.5 mcg 10/02/18 06:00 10/03/18 05:49 Synthroid Tab* PO 12.5 mcg DAILY@0600 [facility] Administration Lorazepam 0.5 mg 10/02/18 15:22 Ativan Tab(*) PO Q6H PRN AGITATION Magnesium Hydroxide 30 ml 10/01/18 12:42 Milk Of Magnesia Liq* PO Q6H PRN CONSTIPATION Metformin HCl 500 mg 10/02/18 17:00 10/03/18 07:46 Glucophage* PO 500 mg 0800,1700 [facility] Administration Midodrine 2.5 mg 10/02/18 14:00 10/03/18 09:00 Midodrine (Nf) PO 2.5 mg TID [facility] Administration Protocol Pantoprazole Sodium 40 mg 10/02/18 09:00 10/03/18 09:02 Protonix Tab (Nf) PO 40 mg DAILY [facility] Administration Senna 2 tab 10/01/18 12:42 Senokot Tab* PO BEDTIME PRN CONSTIPATION Vital Signs: Vital Signs Temp Pulse Resp BP Pulse Ox 97.6 F 76 18 158/65 98 10/03/18 08:00 10/03/18 12:48 10/03/18 08:00 10/03/18 08:00 10/03/18 08:00 Lab Results: Laboratory Results - last 24 hr 10/02/18 10/02/18 10/03/18 16:38 20:22 07:34 POC Glucose (mg/dL) 208 H 213 H 205 H 10/03/18 11:18 POC Glucose (mg/dL) 250 H Exam: HEENT: Head NC/AT, EOMI LUNGS: Clear HEART: regular rhythm ABDOMEN: Soft EXTREMITIES: peripheral pulses intact. Normal tone NEUROLOGIC: Rt homonymous hemianopsia, has trouble with visual field below waist. 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 ASA, will resume NOAC in [address] of head neg 2. Diabetes: Resume Metformin and glipizide, increase glipizide to 5, have cut back Lantus 3. Delirium: Seroquel helped but sedated. Try Ativan if needed 4. Atrial fibrillation: On Tikosyn; will resume NOAC in 11 days 5. Orthostasis: Resolved. Will stop Midodrine. It may have been due to Scopolamine 6. Hypothyroid: Synthroid 7. DVT Prophylaxis: Heparin S/Q 8. Ulcerative Colitis: Colazol 9. Iron Deficiency Anemia: Iron Supplement 10. Advance Directives: Son is HCP. Full code 10/03/18 14:16
[2018-10-03] MEDS: Atorvastatin* 80 MG TAB PO SCH (17:23)
[2018-10-03] MEDS: Insulin GLARGINE(*) 1 UNITS UNIT SUBCUT SCH ×2 (17:30→21:01)
[2018-10-04] MEDS: Levothyroxine TAB* 25 MCG TAB PO SCH (05:37)
[2018-10-04] MEDS: Heparin VIAL(*) 5000 UNITS/ML VIAL (FIVE THOUSAND) SUBCUT SCH ×3 (05:39→21:31)
[2018-10-04] MEDS: Ferrous Sulfate TAB* 325 MG PO SCH (08:03)
[2018-10-04] MEDS: Pantoprazole TAB * 40 MG TAB PO SCH (08:04)
[2018-10-04] MEDS: Dofetilide CAP* 125 MCG PO SCH ×2 (08:04→21:35)
[2018-10-04] MEDS: metFORMIN* 500 MG TAB PO SCH ×2 (08:04→16:40)
[2018-10-04] MEDS: Calcium/Vitamin D TAB 250/125* TAB PO SCH (08:05)
[2018-10-04] MEDS: Docusate CAP* 100 MG PO SCH ×2 (08:05→21:35)
[2018-10-04] MEDS: Aspirin EC TAB* 81 MG TAB.EC PO SCH (08:05)
[2018-10-04] MEDS: glipiZIDE TAB* 5 MG PO SCH ×2 (08:05→16:40)
[2018-10-04] MEDS: BALSALAZIDE SODIUM 750 MG PO SCH ×2 (08:10→21:35)
[2018-10-04] MEDS: Insulin LISPRO* 1 UNITS UNIT SUBCUT SCH ×4 (08:11→21:33)
--- NOTE | 2018-10-04 15:11 | PN ---
Progress Note Date of Service: 10/04/18 Note: DANIEL PEARL was visited. Nursing notes read and reviewed. She has visual problems but has remained calm since the other night. Current Medications: Active Medications Generic Name Dose Route Start Last Admin Trade Name Freq PRN Reason Stop Dose Admin Acetaminophen 650 mg 10/01/18 12:42 10/03/18 12:23 Tylenol Tab* PO 650 mg Q6H PRN Administration FEVER/HEADACHE Aspirin 81 mg 10/02/18 09:00 10/04/18 08:05 Aspirin Ec Tab* PO 81 mg DAILY [facility] Administration Atorvastatin Calcium 80 mg 10/02/18 17:00 10/03/18 17:23 Lipitor* PO 80 mg 1700 [facility] Administration Balsalazide 1,500 mg 10/01/18 21:00 10/04/18 08:10 Colazal Cap(Nf) PO 1,500 mg BID [facility] Administration Protocol Calcium/Vitamin D 1 tab 10/02/18 09:00 10/04/18 08:05 Oscal D Tab 250/125* PO 1 tab DAILY [facility] Administration Docusate Sodium 100 mg 10/01/18 21:00 10/04/18 08:05 Colace Cap* PO 100 mg BID [facility] Administration Dofetilide 125 mcg 10/01/18 21:00 10/04/18 08:04 Tikosyn Cap* PO 125 mcg BID [facility] Administration Ferrous Sulfate 325 mg 10/02/18 09:00 10/04/18 08:03 Ferrous Sulfate Tab* PO 325 mg DAILY [facility] Administration Glipizide 5 mg 10/03/18 17:00 10/04/18 08:05 Glucotrol Tab* PO 5 mg 0800,1700 [facility] Administration Heparin Sodium (Porcine) 5,000 units 10/01/18 14:00 10/04/18 13:35 Heparin Vial(*) SUBCUT 5,000 units Q8HR [facility] Administration Insulin Glargine 10 units 10/03/18 20:00 10/03/18 21:01 Lantus(*) SUBCUT 10 units 2000 [facility] Administration Insulin Human Lispro 0 units 10/01/18 16:30 10/04/18 11:52 Humalog* SUBCUT 4 units ACHS [facility] Administration Protocol Levothyroxine Sodium 12.5 mcg 10/02/18 06:00 10/04/18 05:37 Synthroid Tab* PO 12.5 mcg DAILY@0600 [facility] Administration Lorazepam 0.5 mg 10/02/18 15:22 Ativan Tab(*) PO Q6H PRN AGITATION Magnesium Hydroxide 30 ml 10/01/18 12:42 Milk Of Magnesia Liq* PO Q6H PRN CONSTIPATION Metformin HCl 500 mg 10/02/18 17:00 10/04/18 08:04 Glucophage* PO 500 mg 0800,1700 [facility] Administration Pantoprazole Sodium 40 mg 10/02/18 09:00 10/04/18 08:04 Protonix Tab (Nf) PO 40 mg DAILY [facility] Administration Senna 2 tab 10/01/18 12:42 Senokot Tab* PO BEDTIME PRN CONSTIPATION Vital Signs: Vital Signs Temp Pulse Resp BP Pulse Ox 97.8 F 75 19 150/60 98 10/04/18 08:00 10/04/18 09:00 10/04/18 08:00 10/04/18 08:00 10/04/18 08:00 Lab Results: Laboratory Results - last 24 hr 10/03/18 10/03/18 10/04/18 16:24 19:56 07:42 POC Glucose (mg/dL) 125 H 233 H 188 H 10/04/18 11:28 POC Glucose (mg/dL) 203 H Exam: HEENT: Head NC/AT, EOMI LUNGS: Clear HEART: regular rhythm ABDOMEN: Soft EXTREMITIES: peripheral pulses intact. Normal tone NEUROLOGIC: Rt homonymous hemianopsia, has trouble with visual field below waist. 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 ASA, will resume NOAC in [address] of head neg 2. Diabetes: Resume Metformin and glipizide, increased glipizide to 5, have cut back Lantus, BS ok 3. Delirium: Seroquel helped but sedated. Try Ativan if needed 4. Atrial fibrillation: On Tikosyn; will resume NOAC in 10 days 5. Orthostasis: Resolved. Off Midodrine. It may have been due to Scopolamine 6. Hypothyroid: Synthroid 7. DVT Prophylaxis: Heparin S/Q 8. Ulcerative Colitis: Colazol 9. Iron Deficiency Anemia: Iron Supplement 10. Advance Directives: Son is HCP. Full code 10/04/18 15:11 10/04/18 15:12
[2018-10-04] MEDS: Atorvastatin* 80 MG TAB PO SCH (16:40)
[2018-10-04] MEDS: Insulin GLARGINE(*) 1 UNITS UNIT SUBCUT SCH (21:34)
[2018-10-05] MEDS: Levothyroxine TAB* 25 MCG TAB PO SCH (06:15)
[2018-10-05] MEDS: Heparin VIAL(*) 5000 UNITS/ML VIAL (FIVE THOUSAND) SUBCUT SCH ×3 (06:16→21:57)
[2018-10-05] MEDS: glipiZIDE TAB* 5 MG PO SCH ×2 (08:49→16:58)
[2018-10-05] MEDS: Ferrous Sulfate TAB* 325 MG PO SCH (08:49)
[2018-10-05] MEDS: Docusate CAP* 100 MG PO SCH ×2 (08:49→20:36)
[2018-10-05] MEDS: Calcium/Vitamin D TAB 250/125* TAB PO SCH (08:49)
[2018-10-05] MEDS: Dofetilide CAP* 125 MCG PO SCH ×2 (08:50→21:53)
[2018-10-05] MEDS: metFORMIN* 500 MG TAB PO SCH ×2 (08:51→16:58)
[2018-10-05] MEDS: Aspirin EC TAB* 81 MG TAB.EC PO SCH (08:51)
[2018-10-05] MEDS: Pantoprazole TAB * 40 MG TAB PO SCH (08:51)
[2018-10-05] MEDS: BALSALAZIDE SODIUM 750 MG PO SCH ×2 (08:52→21:52)
[2018-10-05] MEDS: Insulin LISPRO* 1 UNITS UNIT SUBCUT SCH ×4 (08:53→21:53)
[2018-10-05] MEDS: Acetaminophen TAB* 325 MG PO PRN (09:37)
[2018-10-05] MEDS: Atorvastatin* 80 MG TAB PO SCH (16:58)
[2018-10-05] MEDS ORDERED: Loperamide CAP* 2 MG PO PRN (17:52)
--- NOTE | 2018-10-05 17:53 | PN ---
Progress Note Date of Service: 10/05/18 Note: DANIEL PEARL was visited. Therapy notes read and reviewed. She doesn't feel well and she has just started to have diarrhea. Otherwise she had a headache earlier today. Blood sugars are better Current Medications: Active Medications Generic Name Dose Route Start Last Admin Trade Name Freq PRN Reason Stop Dose Admin Acetaminophen 650 mg 10/01/18 12:42 10/05/18 09:37 Tylenol Tab* PO 650 mg Q6H PRN Administration FEVER/HEADACHE Aspirin 81 mg 10/02/18 09:00 10/05/18 08:51 Aspirin Ec Tab* PO 81 mg DAILY [facility] Administration Atorvastatin Calcium 80 mg 10/02/18 17:00 10/05/18 16:58 Lipitor* PO 80 mg 1700 [facility] Administration Balsalazide 1,500 mg 10/01/18 21:00 10/05/18 08:52 Colazal Cap(Nf) PO 1,500 mg BID [facility] Administration Protocol Calcium/Vitamin D 1 tab 10/02/18 09:00 10/05/18 08:49 Oscal D Tab 250/125* PO 1 tab DAILY [facility] Administration Docusate Sodium 100 mg 10/01/18 21:00 10/05/18 08:49 Colace Cap* PO 100 mg BID [facility] Administration Dofetilide 125 mcg 10/01/18 21:00 10/05/18 08:50 Tikosyn Cap* PO 125 mcg BID [facility] Administration Ferrous Sulfate 325 mg 10/02/18 09:00 10/05/18 08:49 Ferrous Sulfate Tab* PO 325 mg DAILY [facility] Administration Glipizide 5 mg 10/03/18 17:00 10/05/18 16:58 Glucotrol Tab* PO 5 mg 0800,1700 [facility] Administration Heparin Sodium (Porcine) 5,000 units 10/01/18 14:00 10/05/18 14:00 Heparin Vial(*) SUBCUT 5,000 units Q8HR [facility] Administration Insulin Glargine 10 units 10/03/18 20:00 10/04/18 21:34 Lantus(*) SUBCUT 10 units 2000 [facility] Administration Insulin Human Lispro 0 units 10/01/18 16:30 10/05/18 16:03 Humalog* SUBCUT Not Given ACHS [facility] Protocol Levothyroxine Sodium 12.5 mcg 10/02/18 06:00 10/05/18 06:15 Synthroid Tab* PO 12.5 mcg DAILY@0600 [facility] Administration Lorazepam 0.5 mg 10/02/18 15:22 Ativan Tab(*) PO Q6H PRN AGITATION Magnesium Hydroxide 30 ml 10/01/18 12:42 Milk Of Magnesia Liq* PO Q6H PRN CONSTIPATION Metformin HCl 500 mg 10/02/18 17:00 10/05/18 16:58 Glucophage* PO 500 mg 0800,1700 [facility] Administration Pantoprazole Sodium 40 mg 10/02/18 09:00 10/05/18 08:51 Protonix Tab (Nf) PO 40 mg DAILY [facility] Administration Senna 2 tab 10/01/18 12:42 Senokot Tab* PO BEDTIME PRN CONSTIPATION Vital Signs: Vital Signs Temp Pulse Resp BP Pulse Ox 97.5 F 70 20 135/61 96 10/05/18 16:03 10/05/18 16:03 10/05/18 16:03 10/05/18 16:03 10/05/18 16:03 Lab Results: Laboratory Results - last 24 hr 10/04/18 10/04/18 10/05/18 16:11 20:44 07:46 POC Glucose (mg/dL) 234 H 153 H 196 H 10/05/18 10/05/18 12:10 16:00 POC Glucose (mg/dL) 148 H 118 H Exam: HEENT: Head NC/AT, EOMI LUNGS: Clear HEART: regular rhythm ABDOMEN: Soft EXTREMITIES: peripheral pulses intact. Normal tone NEUROLOGIC: Rt homonymous hemianopsia, has trouble with visual field below waist. 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 ASA, will resume NOAC in [address] of head neg 2. Diabetes: Resume Metformin and glipizide, increased glipizide to 5, have stopped Lantus, BS ok 3. Delirium: Seroquel helped but sedated. Try Ativan if needed 4. Atrial fibrillation: On Tikosyn; will resume NOAC in 9 days 5. Orthostasis: Resolved. Off Midodrine. It may have been due to Scopolamine 6. Hypothyroid: Synthroid 7. DVT Prophylaxis: Heparin S/Q 8. Ulcerative Colitis: Colazol 9. Iron Deficiency Anemia: Iron Supplement 10. Advance Directives: Son is HCP. Full code 11. Diarrhea: Imodium PRN 10/05/18 17:53 10/05/18 17:54
[2018-10-05] MEDS ORDERED: Trimethobenzamide CAP* 300 MG PO PRN (17:56)
[2018-10-06] MEDS: Heparin VIAL(*) 5000 UNITS/ML VIAL (FIVE THOUSAND) SUBCUT SCH ×3 (05:48→21:10)
[2018-10-06] MEDS: Levothyroxine TAB* 25 MCG TAB PO SCH (05:49)
[2018-10-06] MEDS: Insulin LISPRO* 1 UNITS UNIT SUBCUT SCH ×4 (07:58→21:08)
[2018-10-06] MEDS: glipiZIDE TAB* 5 MG PO SCH ×2 (07:59→16:56)
[2018-10-06] MEDS: Aspirin EC TAB* 81 MG TAB.EC PO SCH (07:59)
[2018-10-06] MEDS: metFORMIN* 500 MG TAB PO SCH ×2 (07:59→16:56)
[2018-10-06] MEDS: BALSALAZIDE SODIUM 750 MG PO SCH ×2 (07:59→21:04)
[2018-10-06] MEDS: Calcium/Vitamin D TAB 250/125* TAB PO SCH (08:01)
[2018-10-06] MEDS: Docusate CAP* 100 MG PO SCH ×2 (08:02→20:56)
[2018-10-06] MEDS: Dofetilide CAP* 125 MCG PO SCH ×2 (08:02→21:07)
[2018-10-06] MEDS: Ferrous Sulfate TAB* 325 MG PO SCH (08:57)
[2018-10-06] MEDS: Pantoprazole TAB * 40 MG TAB PO SCH (08:58)
[2018-10-06] MEDS: Acetaminophen TAB* 325 MG PO PRN ×3 (08:58→21:06)
--- NOTE | 2018-10-06 12:47 | PMRUTEAM ---
PMRU: Team Meeting Current Status: Nursing: Current Status Skin Deviation Description [ No deviations noted none] Physical Therapy: Current Status Bed Mobility Assistance Supervision Transfer Mobility Assistance Supervision,Contact Guard Assist Transfer/Bed Mobility Rolling Walker Recommended Devices Ambulation Assistance Contact Guard Assist Ambulation Assistive Devices Rolling Walker Number of Feet Patient 150 Ambulated Ambulation Comment requiring cues and steadying assist Stairs Assistance Not Tested Stairs Recommended Devices Two Rails Number of Stairs 3 Objective Comments Sitting in chair in gym practicing scanning environment, pt having most difficulty with lower visual field and R periphery, needing to turn head and eyes in order to see objects. Occupational Therapy: Current Status Upper Body Dressing Supervision,Min Assist Lower Body Dressing Mod Assist Bathing Min Assist Toileting Mod Assist Toilet Transfer Min Assist Shower Transfer Progress TBA Eating Min Assist Instrumental ADL unsafe to attempt IADLs at this time Rec Therapy: Current Status Summary of Assessment and RT assessment complete and pt. is aware of RT Clinical Impression services. Pt. has leisure activities in her room and often has visitors during the afternoon. Treatment Goals Pt. will engage in leisure activities while on the unit. Treatment Plan Provide RT services and encourage involvement. Social Work: Current Status Discharge Plan return to the community with family support and community services as needed Potential for Family Training TBD Anticipated Discharge Assisted Living Destination Anticipated Discharge pt's family are uncertain of her discharge Destination Comment disposition Discharge With family support and community services as needed Nutrition: Current Status Monitoring consult request per family. Will visit later today. FS mid-upper 100s recent A1c 7.7% consistent carb, mech soft diet Speech: Current Status Assessment Patient is progressing as expected. Patient spontaneously searched right of center to name faces in photos. Speech Current Status Goal 1 Moderate Speech Goal 2 Current Status Moderate Speech Goal 3 Current Status Moderate Goals: Physical Therapy: Initial Goals Bed Mobility Assistance Supervision Transfer Mobility Assistance Supervision Transfer/Bed Mobility Rolling Walker Recommended Devices Ambulation Supervision Ambulation Recommended Devices Rolling Walker Ambulation Distance 150 Stairs Assistance Supervision Stair Recommended Devices One Rail Number of Stairs 12 Physical Therapy: Updated Goals Transfer/Bed Mobility Rolling Walker Recommended Devices Occupational Therapy: Initial Goals Goals to be Completed in (Days 14-21 ) Upper Body Bathing Routine Supervision/Set Up Lower Body Bathing Routine Supervision/Set Up Upper Body Dressing Routine Supervision/Set Up Lower Body Dressing Routine Supervision/Set Up Toilet Hygeine and Clothing Supervision/Set Up Management Routine Toilet Transfer Routine Supervision/Set Up Tub Transfer Routine Supervision/Set Up Functional Transfers for ADL Supervision/Set Up Grooming Routine Supervision/Set Up Feeding Routine Supervision/Set Up Nutrition: Goals Intervention Goals 1. Tolerates least restrictive texture w/o evidence of difficulty swallowing. 2. Maintains adequate glycemic control per inpatient parameters w/consideration for advanced age. 3. Maintains adequate oral intake (>60%) to support maintenance of lean body mass. 4. Maintains regular bowel pattern w/o constipation or diarrhea. Speech: Goals Speech Goal 1 Language Expression Speech Evaluation Status Goal Moderate-Severe 1 Speech Current Status Goal 1 Moderate Goal 1 Comments Language Expression Long-Term Goal: Pt will use conversational repair strategies to cooperatively find words in structured conversation, 100% accuracy, given extra time, Independently. Status: Progressing slowly as expected Short-Term Goal: Pt will use conversational repair strategies to cooperatively find words in structured language activities, 75% accuracy, given Maximal skilled instruction and cueing. Status: Progressing as expected. COGNOS REPORT DEVELOPER presented selected pictures and text in two columns. Patient matched pictures on the left and right, given demonstration, verbal instruction and moderate cueing to point to each stimulus with her index finger, to feel along the Right edge of the book as she scanned the Right column, and to turn her head and point her nose to the far Right of what she was looking at. Patient required moderate cueing to name simple object pictures. Patient responded best to prompts to say what you do with object, most often naming the object spontaneously after trhe verb; but showed poor awareness of task and goal, as she did not acknowledge the technique, only te resulting specifics. Speech Goal 2 Language Comprehension Speech Goal 2 Evaluation Moderate Status Speech Goal 2 Current Status Moderate Speech Goal 2 Comments Language Comprehension Long-Term Goal: Pt will use compensatory strategies to demonstrate comprehension of 2-part verbal and written information of moderate complexity, 90% accuracy, Independently. Status: Progressing slowly as expected. Short-Term Goal: Pt will use compensatory strategies to demonstrate comprehension of complex , 2-part verbal and written information, 75 accuracy, given moderate extra time, and Maximum skilled instruction and cueing. Status: Progressing slowly as expected. Given verbal directions and modertae cueing, patient identified pictures by description on both sides of the page. for example, shown a boxed picture of "Cup above Pie" on the upper left, patient found "Pie above Cup" on the lower right. Speech Goal 3 Memory Speech Goal 3 Evaluation Moderate Status Speech Goal 3 Current Status Moderate Speech Goal 3 Comments Memory Goals: Long-Term Memory Goal: Pt will use compensatory strategies to encode and retrieve 4/4 new items after delay of 30 minutes, Independently, for independence in mobility safety, ADLs and community access. Status: Progressing slowly as expected. Short-term Memory Goal: Pt will use compensatory strategies to encode and retrieve 3/4 new items after delay of 5 minutes, given Moderate skilled instruction and cueing. Status: Progressing slowly as expected. Patient named her visiting brother Good, and named her great grandchildren and children in photos given minimal cueing with spaced retrieval after distraction. Social Work: Goals Discharge Plan return to the community with family support and community services as needed Potential for Family Training TBD Anticipated Discharge Assisted Living Destination Anticipated Discharge pt's family are uncertain of her discharge Destination Comment disposition Discharge With family support and community services as needed Care Plan: Care Plan ADL's - Improve/Maintain Start: 10/02/18 08:47 Freq: DAILY Status: Active Target: Protocol: Activity Type Activity Date Activity User E-Sign Co-Sign Detail Recorded Client Recorded Date Recorded By Document 10/02/18 08:48 [id number] [email or web address] 10/02/18 08:49 [id number] 10/02/18 08:48 PMRU Outcome: ADL's/ADL Transfers Orders/Interventions Occupational Therapy Evaluation & Treatment Communication Tool in Patient Room Device Yes Address Deficits Secondary To: CVA Patient to receive OT 5x/wk for 60-120 Therex min/day Self Care Management Group Therapy Neuromuscular ReEducation UE/LE ADL's with Assist Yes: supervision ADL Transfers with Assist Yes: supervision Toileting: Transfers,Clothing Management Yes: ,Hygeine w/Assist supervision Light Kitchen/Laundry w/Assist No Progression Toward Outcome/Goals Progressing Outcome/Goals Met Pt with difficulty maintaining eyes open, moving much more slowly this am, decreased attention noted to RUE when standing from commode requiring physical and v/ c's to place right hand on walker. Unsafe to attempt breakfast with pt at this time due to decreased SAMPSON, WOOD SHINGLE ROOFER/RN aware. Communication-Improve/Maintain Start: 10/01/18 12:54 Freq: DAILY Status: Active Target: Protocol: Activity Type Activity Date Activity User E-Sign Co-Sign Detail Recorded Client Recorded Date Recorded By Document 10/05/18 23:39 [id number] 10/05/18 23:39 [id number] 10/05/18 23:39 PMRU Outcome: Communication/Cognitive Status Outcome/Goals Makes Needs Known Effectively Other Outcomes/Goals Language Expression Long-Term Goal: Pt will use conversational repair strategies to cooperatively find words in structured conversation, 100% accuracy, given extra time, Independently. Short-Term Goal : Pt will use conversational repair strategies to cooperatively find words in structured language activities, 75% accuracy, given Maximal skilled instruction and cueing. Language Comprehension Long-Term Goal: Pt will use compensatory strategies to demonstrate comprehension of 2-part verbal and written information of moderate complexity, 90% accuracy, Independently. Status: Initial assessment completed. Short-Term Goal : Pt will use compensatory strategies to demonstrate comprehension of complex, 2- part verbal and written information, 75 accuracy, given moderate extra time, and Maximum skilled instruction and cueing. Status: Initial assessment completed. Memory Goals: Long-Term Memory Goal: Pt will use compensatory strategies to encode and retrieve 4/4 new items after delay of 30 minutes, Independently, for independence in mobility safety, ADLs and community access. Status: Initial assessment completed. Short-term Memory Goal: Pt will use compensatory strategies to encode and retrieve 3/4 new items after delay of 5 minutes, given Moderate skilled instruction and cueing. Progression Toward Outcomes/Goals Goals Adjusted DVT Prophylaxis- Improve/Maintain Start: 10/01/18 12:54 Freq: QSHIFT Status: Active Target: Protocol: Activity Type Activity Date Activity User E-Sign Co-Sign Detail Recorded Client Recorded Date Recorded By Document 10/05/18 23:39 [id number] [email or web address] 10/05/18 23:39 [id number] 10/05/18 23:39 PMRU Outcome: DVT Prophylaxis Outcome/Goals Remains Free of DVT Complies with DVT Prophylaxis /Treatment Demonstrates Knowledge of DVT Prevention/ Treatment TEDS Stockings on Every AM, Off at HS Progression Toward Outcome/Goals Progressing Discharge Planning - Improve/Maintain Start: 10/01/18 12:54 Freq: DAILY Status: Active Target: Protocol: Activity Type Activity Date Activity User E-Sign Co-Sign Detail Recorded Client Recorded Date Recorded By Document 10/05/18 23:39 [id number] [email or web address] 10/05/18 23:39 [id number] 10/05/18 23:39 PMRU Outcome: Discharge Planning Update Patient Family No Outcome/Goals Demonstrates Understanding of Discharge Plan Education-Improve/Maintain Start: 10/01/18 12:54 Freq: QSHIFT Status: Active Target: Protocol: Activity Type Activity Date Activity User E-Sign Co-Sign Detail Recorded Client Recorded Date Recorded By Document 10/05/18 23:39 [id number] [id number] 10/05/18 23:39 [id number] 10/05/18 23:39 PMRU Outcome: Education Outcome/Goals Encourage Questions Progression Toward Outcome/Goals Progressing /GI-Improve/Maintain Start: 10/01/18 12:54 Freq: QSHIFT Status: Active Target: Protocol: Activity Type Activity Date Activity User E-Sign Co-Sign Detail Recorded Client Recorded Date Recorded By Document 10/05/18 23:39 [id number] [email or web address] 10/05/18 23:39 [id number] 10/05/18 23:39 PMRU Outcome: Genitourinary/ Gastrointestinal Genitourinary- Outcome/Goals Maintain/ Achieve Urinary Continence Remain Free of Hospital- Acquired UTI Gastrointestinal-Outcome/Goals Maintain/ Achieve Bowel Regularity in Accordance with Pt's Baseline Prevent Constipation Laxatives as Ordered Progression Toward Outcome/Goals - Progressing Progression Toward Outcome/Goals - GI Progressing Medication Administration Start: 10/01/18 12:54 Freq: QSHIFT Status: Active Target: Protocol: Activity Type Activity Date Activity User E-Sign Co-Sign Detail Recorded Client Recorded Date Recorded By Document 10/05/18 23:39 [id number] [email or web address] 10/05/18 23:39 [id number] 10/05/18 23:39 PMRU Outcome: Medication Administration Assess Patient Knowledge/Teach Med Yes Education for all Meds Outcome/Goals Patient Independent with Medication Administration at Home Demonstrates Understanding Progression Towards Outcome/Goals Progressing Is Patient Going Home on Lovenox? No Metabolic Status- Improve/Maintain Start: 10/01/18 12:54 Freq: QSHIFT Status: Active Target: Protocol: Activity Type Activity Date Activity User E-Sign Co-Sign Detail Recorded Client Recorded Date Recorded By Document 10/05/18 23:39 [id number] [email or web address] 10/05/18 23:39 [id number] 10/05/18 23:39 PMRU Outcome: Metabolic Status Have Fingersticks Been Ordered Yes Fingerstick Order Frequency AC & HS Outcome/Goals Maintain/ Improve Metabolic Status Demonstrate Knowledge of Prevention/ Treatment of Metabolic Imbalances Progression Toward Outcome/Goals Progressing Mobility- Improve/Maintain Start: 10/01/18 16:49 Freq: DAILY Status: Active Target: Protocol: Activity Type Activity Date Activity User E-Sign Co-Sign Detail Recorded Client Recorded Date Recorded By Document 10/01/18 16:49 [id number] 10/01/18 16:50 [id number] 10/01/18 16:49 PMRU Outcome: Mobility Physical Therapy Evaluation and Yes Treatment Activity OOB with Assistance Yes Device Yes: FWW Assistance Yes: Min A Patient to be seen 5x/wk for 60-120 min/ Therex day for: Mobility Training Gait Training Balance Outcome/Goals Maintain/ Achieve Baseline Mobility Status Improve Mobility Status Demonstrates Proper Use of Assistive Devices Free from Complications of Immobility Bed Mobility Yes: Supervision Transfers Yes: S with FWW Gait x ft Yes: S with [id number] Up/Down Stairs Yes: S with 1 rail x1 flight With HEP Yes: Supervision Neurological- Improve/Maintain Start: 10/01/18 12:54 Freq: QSHIFT Status: Active Target: Protocol: Activity Type Activity Date Activity User E-Sign Co-Sign Detail Recorded Client Recorded Date Recorded By Document 10/05/18 23:39 [id number] [email or web address] 10/05/18 23:39 [id number] 10/05/18 23:39 PMRU Outcome: Neurological Weakness/Aphasia Weakness Outcome/Goals Maintain/ Achieve Baseline Neurological Status Improve Neurological Status Prevent Avoidable Neurological Decline Maintain/ Improve Strength/ROM Progression Toward Outcome/Goals Progressing Outcome/Goals Met Comment c/o headache today, Dr Moody aware Safety- Improve/Maintain Start: 10/01/18 12:54 Freq: QSHIFT Status: Active Target: Protocol: Activity Type Activity Date Activity User E-Sign Co-Sign Detail Recorded Client Recorded Date Recorded By Document 10/05/18 23:39 [id number] [email or web address] 10/05/18 23:39 [id number] 10/05/18 23:39 PMRU Outcome: Safety Outcome/Goals Remain Free of Injury or Harm Cooperates with Safety Measures for Least Restrictive Environment Prevent Falls/ Injury Progression Toward Outcome/Goals Progressing Outcome/Goals Met Comment BA and PA x2 in use Medicine Note: Length of Stay: 2 weeks Anticipated Discharge Destination: Assisted Living Tentative Discharge Date: 10/20/18 Discharged to: Home vs SNF
[2018-10-06] MEDS: Atorvastatin* 80 MG TAB PO SCH (16:56)
--- NOTE | 2018-10-06 18:40 | PN ---
Progress Note Date of Service: 10/06/18 Note: DANIEL PEARL was visited. Therapy notes read and reviewed. She was discussed in interdisciplinary team rounds. She has memory problems which are preventing her from making progress to compensate for her hemianopsia Current Medications: Active Medications Generic Name Dose Route Start Last Admin Trade Name Freq PRN Reason Stop Dose Admin Acetaminophen 650 mg 10/01/18 12:42 10/06/18 14:13 Tylenol Tab* PO 650 mg Q6H PRN Administration FEVER/HEADACHE Aspirin 81 mg 10/02/18 09:00 10/06/18 07:59 Aspirin Ec Tab* PO 81 mg DAILY [facility] Administration Atorvastatin Calcium 80 mg 10/02/18 17:00 10/06/18 16:56 Lipitor* PO 80 mg 1700 [facility] Administration Balsalazide 1,500 mg 10/01/18 21:00 10/06/18 07:59 Colazal Cap(Nf) PO 1,500 mg BID [facility] Administration Protocol Calcium/Vitamin D 1 tab 10/02/18 09:00 10/06/18 08:01 Oscal D Tab 250/125* PO 1 tab DAILY [facility] Administration Docusate Sodium 100 mg 10/01/18 21:00 10/06/18 08:02 Colace Cap* PO Not Given BID [facility] Dofetilide 125 mcg 10/01/18 21:00 10/06/18 08:02 Tikosyn Cap* PO 125 mcg BID [facility] Administration Ferrous Sulfate 325 mg 10/02/18 09:00 10/06/18 08:57 Ferrous Sulfate Tab* PO 325 mg DAILY [facility] Administration Glipizide 5 mg 10/03/18 17:00 10/06/18 16:56 Glucotrol Tab* PO 5 mg 0800,1700 [facility] Administration Heparin Sodium (Porcine) 5,000 units 10/01/18 14:00 10/06/18 14:20 Heparin Vial(*) SUBCUT 5,000 units Q8HR [facility] Administration Insulin Human Lispro 0 units 10/01/18 16:30 10/06/18 16:55 Humalog* SUBCUT Not Given ACHS [facility] Protocol Levothyroxine Sodium 12.5 mcg 10/02/18 06:00 10/06/18 05:49 Synthroid Tab* PO 12.5 mcg DAILY@0600 [facility] Administration Loperamide HCl 2 mg 10/05/18 17:52 Imodium Cap* PO .SEE DIRECTIONS PRN DIARRHEA Lorazepam 0.5 mg 10/02/18 15:22 Ativan Tab(*) PO Q6H PRN AGITATION Magnesium Hydroxide 30 ml 10/01/18 12:42 Milk Of Magnesia Liq* PO Q6H PRN CONSTIPATION Metformin HCl 500 mg 10/02/18 17:00 10/06/18 16:56 Glucophage* PO 500 mg 0800,1700 [facility] Administration Pantoprazole Sodium 40 mg 10/02/18 09:00 10/06/18 08:58 Protonix Tab (Nf) PO 40 mg DAILY [facility] Administration Senna 2 tab 10/01/18 12:42 Senokot Tab* PO BEDTIME PRN CONSTIPATION Sertraline HCl 25 mg 10/07/18 09:00 Zoloft* PO DAILY [facility] Trimethobenzamide HCl 300 mg 10/05/18 17:56 Tigan Cap* PO Q8H PRN NAUSEA Vital Signs: Vital Signs Temp Pulse Resp BP Pulse Ox 98.0 F 73 14 121/61 100 10/06/18 05:48 10/06/18 10:39 10/06/18 10:39 10/06/18 10:39 10/06/18 10:39 Lab Results: Laboratory Results - last 24 hr 10/05/18 10/06/18 10/06/18 21:40 07:32 12:37 POC Glucose (mg/dL) 149 H 172 H 148 H 10/06/18 16:39 POC Glucose (mg/dL) 108 H Exam: HEENT: Head NC/AT, EOMI LUNGS: Clear HEART: regular rhythm ABDOMEN: Soft EXTREMITIES: peripheral pulses intact. Normal tone NEUROLOGIC: Rt homonymous hemianopsia, has trouble with visual field below waist. 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 Diabetes: Resume Metformin and glipizide, increased glipizide to 5, have stopped Lantus, BS ok, increase glipizide to 10 3. Delirium: Seroquel helped but sedated. Try Ativan if needed 4. Atrial fibrillation: On Tikosyn; will resume NOAC in 8 days 5. Orthostasis: Resolved. Off Midodrine. It may have been due to Scopolamine 6. Hypothyroid: Synthroid 7. DVT Prophylaxis: Heparin S/Q 8. Ulcerative Colitis: Colazol 9. Iron Deficiency Anemia: Iron Supplement 10. Advance Directives: Son is HCP. Full code 11. Diarrhea: Imodium PRN 10/06/18 18:40
[2018-10-07] MEDS: Levothyroxine TAB* 25 MCG TAB PO SCH (05:33)
[2018-10-07] MEDS: Heparin VIAL(*) 5000 UNITS/ML VIAL (FIVE THOUSAND) SUBCUT SCH ×3 (05:33→22:00)
[2018-10-07] MEDS: Insulin LISPRO* 1 UNITS UNIT SUBCUT SCH ×4 (12:04→22:06)
[2018-10-07] MEDS: BALSALAZIDE SODIUM 750 MG PO SCH ×2 (12:05→22:06)
[2018-10-07] MEDS: glipiZIDE TAB* 5 MG PO SCH ×2 (12:05→18:04)
[2018-10-07] MEDS: Aspirin EC TAB* 81 MG TAB.EC PO SCH (12:05)
[2018-10-07] MEDS: metFORMIN* 500 MG TAB PO SCH ×2 (12:05→18:05)
[2018-10-07] MEDS: Pantoprazole TAB * 40 MG TAB PO SCH (12:06)
[2018-10-07] MEDS: Docusate CAP* 100 MG PO SCH ×2 (12:06→21:23)
[2018-10-07] MEDS: Calcium/Vitamin D TAB 250/125* TAB PO SCH (12:06)
[2018-10-07] MEDS: Dofetilide CAP* 125 MCG PO SCH ×2 (12:06→22:01)
[2018-10-07] MEDS: Ferrous Sulfate TAB* 325 MG PO SCH (12:06)
[2018-10-07] MEDS: Sertraline* 25 MG TAB PO SCH (12:07)
[2018-10-07] MEDS ORDERED: Trimethobenzamide IM* 100 MG/ML 2 ml VIAL IM PRN (14:46)
[2018-10-07] MEDS: D5NS 0.9% 1000 ML BAG* 1,000 ML IV SCH (15:45)
[2018-10-07] MEDS ORDERED: Acetaminophen SUPP* 650 MG SUPP PR PRN (17:02)
[2018-10-07 17:20] LABS: Urine Appearance Cloudy; Urine Bacteria 1+ (Absent); Urine Bilirubin Negative (Negative); Urine Blood Negative (Negative); Urine Color Yellow; Urine Glucose 1+(50 mg/dL) (Negative); Urine Ketones 1+ (Negative); Urine Nitrite Negative (Negative); Urine Protein 1+(30 mg/dL) (Negative); Urine Red Blood Cell 1+(3-5/hpf) (Absent); Urine Specific Gravity 1.023 (1.010-1.030); Urine Urobilinogen Negative (Negative); Urine White Blood Cell 3+(>20/hpf) (Absent)
[2018-10-07] MEDS: Atorvastatin* 80 MG TAB PO SCH (18:04)
--- NOTE | 2018-10-07 18:58 | PN ---
Progress Note Date of Service: 10/07/18 Note: DANIEL PEARL was visited. Therapy notes read and reviewed. She has not felt well all day. She had nausea and some vomiting early this morning. She also had chills. She has not wanted to take pills or eat or drink. IV fluids were started and she had a mild temperature elevation of 100.4. A U/A was sent and looks dirty. Current Medications: Active Medications Generic Name Dose Route Start Last Admin Trade Name Freq PRN Reason Stop Dose Admin Acetaminophen 650 mg 10/01/18 12:42 10/06/18 21:06 Tylenol Tab* PO 650 mg Q6H PRN Administration FEVER/HEADACHE Acetaminophen 650 mg 10/07/18 17:02 10/07/18 18:09 Tylenol Supp* [place] 650 mg Q6H PRN Administration HEADACHE/DISCOMFORT Aspirin 81 mg 10/02/18 09:00 10/07/18 12:05 Aspirin Ec Tab* PO Not Given DAILY [facility] Atorvastatin Calcium 80 mg 10/02/18 17:00 10/07/18 18:04 Lipitor* PO Not Given 1700 [facility] Balsalazide 1,500 mg 10/01/18 21:00 10/07/18 12:05 Colazal Cap(Nf) PO Not Given BID [facility] Protocol Calcium/Vitamin D 1 tab 10/02/18 09:00 10/07/18 12:06 Oscal D Tab 250/125* PO Not Given DAILY [facility] Docusate Sodium 100 mg 10/01/18 21:00 10/07/18 12:06 Colace Cap* PO Not Given BID [facility] Dofetilide 125 mcg 10/01/18 21:00 10/07/18 12:06 Tikosyn Cap* PO Not Given BID [facility] Ferrous Sulfate 325 mg 10/02/18 09:00 10/07/18 12:06 Ferrous Sulfate Tab* PO Not Given DAILY [facility] Glipizide 10 mg 10/07/18 08:00 10/07/18 18:04 Glucotrol Tab* PO Not Given 0800,1700 [facility] Heparin Sodium (Porcine) 5,000 units 10/01/18 14:00 10/07/18 16:15 Heparin Vial(*) SUBCUT 5,000 units Q8HR [facility] Administration Dextrose/Sodium Chloride 1,000 mls @ 75 mls/hr 10/07/18 13:00 D5ns 0.9% 1000 Ml Bag* IV 10/09/18 02:19 PER RATE [facility] Insulin Human Lispro 0 units 10/01/18 16:30 10/07/18 17:02 Humalog* SUBCUT Not Given ACHS [facility] Protocol Levothyroxine Sodium 12.5 mcg 10/02/18 06:00 10/07/18 05:33 Synthroid Tab* PO 12.5 mcg DAILY@0600 [facility] Administration Loperamide HCl 2 mg 10/05/18 17:52 Imodium Cap* PO .SEE DIRECTIONS PRN DIARRHEA Lorazepam 0.5 mg 10/02/18 15:22 Ativan Tab(*) PO Q6H PRN AGITATION Magnesium Hydroxide 30 ml 10/01/18 12:42 Milk Of Magnesia Liq* PO Q6H PRN CONSTIPATION Metformin HCl 500 mg 10/02/18 17:00 10/07/18 18:05 Glucophage* PO Not Given 0800,1700 [facility] Pantoprazole Sodium 40 mg 10/02/18 09:00 10/07/18 12:06 Protonix Tab (Nf) PO Not Given DAILY [facility] Senna 2 tab 10/01/18 12:42 Senokot Tab* PO BEDTIME PRN CONSTIPATION Sertraline HCl 25 mg 10/07/18 09:00 10/07/18 12:07 Zoloft* PO Not Given DAILY [facility] Trimethobenzamide HCl 300 mg 10/05/18 17:56 Tigan Cap* PO Q8H PRN NAUSEA Trimethobenzamide HCl 200 mg 10/07/18 14:46 Tigan Im* IM Q8H PRN NAUSEA Vital Signs: Vital Signs Temp Pulse Resp BP Pulse Ox 100.4 F 73 18 143/50 96 10/07/18 17:22 10/07/18 16:21 10/07/18 16:21 10/07/18 16:21 10/07/18 18:36 Lab Results: Laboratory Results - last 24 hr 10/06/18 10/07/18 10/07/18 20:51 08:09 11:58 POC Glucose (mg/dL) 157 H 192 H 260 H Urine Color Urine Appearance Urine pH Ur Specific Dyke Urine Protein Urine Ketones Urine Blood Urine Nitrate Urine Bilirubin Urine Urobilinogen Ur Leukocyte Esterase Urine WBC (Auto) Urine RBC (Auto) Urine Bacteria Urine Glucose Urine Ascorbic Acid 10/07/18 10/07/18 16:44 16:50 POC Glucose (mg/dL) 231 H Urine Color Yellow Urine Appearance Cloudy Urine pH 5.0 Ur Specific Dyke 1.023 Urine Protein 1+(30 mg/dl) A Urine Ketones 1+ A Urine Blood Negative Urine Nitrate Negative Urine Bilirubin Negative Urine Urobilinogen Negative Ur Leukocyte Esterase 3+ A Urine WBC (Auto) 3+(>20/hpf) A Urine RBC (Auto) 1+(3-5/hpf) A Urine Bacteria 1+ A Urine Glucose 1+(50 mg/dl) A Urine Ascorbic Acid * A Exam: HEENT: Head NC/AT, EOMI LUNGS: Clear HEART: regular rhythm ABDOMEN: Soft EXTREMITIES: peripheral pulses intact. Normal tone NEUROLOGIC: Rt homonymous hemianopsia, has trouble with visual field below waist. Motor strength good Assessment/Plan: 1. 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 ASA, will resume NOAC in [address] of head neg 2. Diabetes: Resume Metformin and glipizide, increased glipizide to 5, have stopped Lantus, BS ok, increase glipizide to 10 3. Delirium: Seroquel helped but sedated. Try Ativan if needed 4. Atrial fibrillation: On Tikosyn; will resume NOAC in 7 days 5. Orthostasis: Resolved. Off Midodrine. It may have been due to Scopolamine 6. Hypothyroid: Synthroid 7. DVT Prophylaxis: Heparin S/Q 8. Ulcerative Colitis: Colazol 9. Iron Deficiency Anemia: Iron Supplement 10. Advance Directives: Son is HCP. Full code 11. N/V: Tigan. Can't have Zofran or Compazine with Tikosyn 12. UTI: Ceftriaxone once a day until she can take PO 10/07/18 18:59
[2018-10-07] MEDS: cefTRIAXone(*) 1 GM in NS 0.9% 50 ML* 50 ML IVPB SCH (20:09)
[2018-10-08 04:56] LABS: ABS Basophils 0.1 10^3/ul (0-0.2); ABS Eosinophils 0 10^3/ul (0-0.6); ABS Lymphocytes 3.5 10^3/ul (1.0-4.8); ABS Monocytes 1.2 10^3/ul (0-0.8); ABS Neutrophils 7.1 10^3/ul (1.5-7.7); ABS Nucleated RBC 0 10^3/ul; Eosinophil % 0.2 %; Hematocrit 32 % (35-47); Hemoglobin 10.3 g/dl (12.0-16.0); Lymphocyte % 29.9 %; Mean Corpuscular HGB Conc 32 g/dl (31-36); Mean Corpuscular Hemoglobin 28 pg (27-31); Mean Corpuscular Volume 88 fL (80-97); Mean Platelet Volume 7.6 fL (7.4-10.4); Nucleated Red Blood Cells % 0; Platelet Count 247 10^3/ul (150-450); Red Blood Count 3.64 10^6/ul (4.00-5.40); Red Cell Distribution Width 18 % (10.5-15); White Blood Count 11.8 10^3/ul (3.5-10.8)
[2018-10-08] MEDS: Levothyroxine TAB* 25 MCG TAB PO SCH (05:34)
[2018-10-08] MEDS: Acetaminophen TAB* 325 MG PO PRN ×2 (05:35→12:54)
[2018-10-08] MEDS: Heparin VIAL(*) 5000 UNITS/ML VIAL (FIVE THOUSAND) SUBCUT SCH ×3 (05:35→21:01)
[2018-10-08] MEDS: D5NS 0.9% 1000 ML BAG* 1,000 ML IV SCH (07:25)
[2018-10-08] MEDS: metFORMIN* 500 MG TAB PO SCH ×2 (10:27→18:00)
[2018-10-08] MEDS: glipiZIDE TAB* 5 MG PO SCH ×2 (10:27→18:17)
[2018-10-08] MEDS: Aspirin EC TAB* 81 MG TAB.EC PO SCH (10:27)
[2018-10-08] MEDS: Insulin LISPRO* 1 UNITS UNIT SUBCUT SCH ×4 (10:27→21:00)
[2018-10-08] MEDS: BALSALAZIDE SODIUM 750 MG PO SCH ×2 (10:28→20:11)
[2018-10-08] MEDS: Docusate CAP* 100 MG PO SCH ×2 (10:29→20:15)
[2018-10-08] MEDS: Calcium/Vitamin D TAB 250/125* TAB PO SCH (10:29)
[2018-10-08] MEDS: Ferrous Sulfate TAB* 325 MG PO SCH (10:30)
[2018-10-08] MEDS: Pantoprazole TAB * 40 MG TAB PO SCH (10:30)
[2018-10-08] MEDS: Sertraline* 25 MG TAB PO SCH (10:30)
[2018-10-08] MEDS: Dofetilide CAP* 125 MCG PO SCH ×2 (10:34→20:11)
--- NOTE | 2018-10-08 16:34 | PN ---
Progress Note Date of Service: 10/08/18 Note: DANIEL PEARL was visited. Therapy notes read and reviewed. Her urine grew out enterococcus and she is on IV ceftriaxone. A better day today. More alert after the fluids. She did have several loose BMs last night. Was able to eat today, take pills. Current Medications: Active Medications Generic Name Dose Route Start Last Admin Trade Name Freq PRN Reason Stop Dose Admin Acetaminophen 650 mg 10/01/18 12:42 10/08/18 12:54 Tylenol Tab* PO 650 mg Q6H PRN Administration FEVER/HEADACHE Acetaminophen 650 mg 10/07/18 17:02 10/07/18 18:09 Tylenol Supp* [place] 650 mg Q6H PRN Administration HEADACHE/DISCOMFORT Aspirin 81 mg 10/02/18 09:00 10/08/18 10:27 Aspirin Ec Tab* PO 81 mg DAILY ARIES Administration Atorvastatin Calcium 80 mg 10/02/18 17:00 10/07/18 18:04 Lipitor* PO Not Given 1700 ARIES Balsalazide 1,500 mg 10/01/18 21:00 10/08/18 10:28 Colazal Cap(Nf) PO 1,500 mg BID ARIES Administration Protocol Calcium/Vitamin D 1 tab 10/02/18 09:00 10/08/18 10:29 Oscal D Tab 250/125* PO 1 tab DAILY ARIES Administration Docusate Sodium 100 mg 10/01/18 21:00 10/08/18 10:29 Colace Cap* PO Not Given BID ARIES Dofetilide 125 mcg 10/01/18 21:00 10/08/18 10:34 Tikosyn Cap* PO 125 mcg BID ARIES Administration Ferrous Sulfate 325 mg 10/02/18 09:00 10/08/18 10:30 Ferrous Sulfate Tab* PO 325 mg DAILY ARIES Administration Glipizide 10 mg 10/07/18 08:00 10/08/18 10:27 Glucotrol Tab* PO 10 mg 0800,1700 ARIES Administration Heparin Sodium (Porcine) 5,000 units 10/01/18 14:00 10/08/18 14:31 Heparin Vial(*) SUBCUT 5,000 units Q8HR ARIES Administration Dextrose/Sodium Chloride 1,000 mls @ 75 mls/hr 10/07/18 13:00 10/08/18 07:25 D5ns 0.9% 1000 Ml Bag* IV 10/09/18 02:19 75 mls/hr PER RATE ARIES Administration Ceftriaxone Sodium 1 gm/ 50 mls @ 200 mls/hr 10/07/18 20:00 10/07/18 20:09 Sodium Chloride IVPB 200 mls/hr Q24H ARIES Administration Insulin Human Lispro 0 units 10/01/18 16:30 10/08/18 13:41 Humalog* SUBCUT 8 units ACHS ARIES Administration Protocol Levothyroxine Sodium 12.5 mcg 10/02/18 06:00 10/08/18 05:34 Synthroid Tab* PO 12.5 mcg DAILY@0600 ARIES Administration Loperamide HCl 2 mg 10/05/18 17:52 Imodium Cap* PO .SEE DIRECTIONS PRN DIARRHEA Lorazepam 0.5 mg 10/02/18 15:22 Ativan Tab(*) PO Q6H PRN AGITATION Magnesium Hydroxide 30 ml 10/01/18 12:42 Milk Of Magnesia Liq* PO Q6H PRN CONSTIPATION Metformin HCl 500 mg 10/02/18 17:00 10/08/18 10:27 Glucophage* PO 500 mg 0800,1700 ARIES Administration Pantoprazole Sodium 40 mg 10/02/18 09:00 10/08/18 10:30 Protonix Tab (Nf) PO 40 mg DAILY ARIES Administration Senna 2 tab 10/01/18 12:42 Senokot Tab* PO BEDTIME PRN CONSTIPATION Sertraline HCl 25 mg 10/07/18 09:00 10/08/18 10:30 Zoloft* PO 25 mg DAILY ARIES Administration Trimethobenzamide HCl 300 mg 10/05/18 17:56 10/08/18 05:42 Tigan Cap* PO 300 mg Q8H PRN Administration NAUSEA Trimethobenzamide HCl 200 mg 10/07/18 14:46 Tigan Im* IM Q8H PRN NAUSEA Vital Signs: Vital Signs Temp Pulse Resp BP Pulse Ox 98.1 F 70 22 156/62 96 10/08/18 05:19 10/08/18 05:19 10/08/18 08:00 10/08/18 05:19 10/08/18 13:44 Lab Results: Laboratory Results - last 24 hr 10/07/18 10/07/18 10/07/18 16:44 16:50 20:13 WBC RBC Hgb Hct MCV MCH MCHC RDW Plt Count MPV Neut % (Auto) Lymph % (Auto) [place] % (Auto) Eos % (Auto) Baso % (Auto) Absolute Neuts (auto) Absolute Lymphs (auto) Absolute Monos (auto) Absolute Eos (auto) Absolute Basos (auto) Absolute Nucleated RBC Nucleated RBC % POC Glucose (mg/dL) 231 H 216 H Urine Color Yellow Urine Appearance Cloudy Urine pH 5.0 Ur Specific [place] 1.023 Urine Protein 1+(30 mg/dl) A Urine Ketones 1+ A Urine Blood Negative Urine Nitrate Negative Urine Bilirubin Negative Urine Urobilinogen Negative Ur Leukocyte Esterase 3+ A Urine WBC (Auto) 3+(>20/hpf) A Urine RBC (Auto) 1+(3-5/hpf) A Urine Bacteria 1+ A Urine Glucose 1+(50 mg/dl) A Urine Ascorbic Acid * A 10/08/18 10/08/18 10/08/18 04:44 08:13 12:00 WBC 11.8 H RBC 3.64 L Hgb 10.3 L Hct 32 L MCV 88 MCH 28 MCHC 32 RDW 18 H Plt Count 247 MPV 7.6 Neut % (Auto) 59.8 Lymph % (Auto) 29.9 [place] % (Auto) 9.7 Eos % (Auto) 0.2 Baso % (Auto) 0.4 Absolute Neuts (auto) 7.1 Absolute Lymphs (auto) 3.5 Absolute Monos (auto) 1.2 H Absolute Eos (auto) 0 Absolute Basos (auto) 0.1 Absolute Nucleated RBC 0 Nucleated RBC % 0 POC Glucose (mg/dL) 268 H 305 H Urine Color Urine Appearance Urine pH Ur Specific [place] Urine Protein Urine Ketones Urine Blood Urine Nitrate Urine Bilirubin Urine Urobilinogen Ur Leukocyte Esterase Urine WBC (Auto) Urine RBC (Auto) Urine Bacteria Urine Glucose Urine Ascorbic Acid Exam: HEENT: Head NC/AT, EOMI LUNGS: Clear HEART: regular rhythm ABDOMEN: Soft EXTREMITIES: peripheral pulses intact. Normal tone NEUROLOGIC: Rt homonymous hemianopsia, has trouble with visual field below waist. Motor strength good Assessment/Plan: 1. 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 ASA, will resume NOAC in [address] of head neg 2. Diabetes: Resume Metformin and glipizide, BS ok, increased glipizide to 10 3. Delirium: Seroquel helped but sedated. Try Ativan if needed 4. Atrial fibrillation: On Tikosyn; will resume NOAC in 6 days 5. Orthostasis: Resolved. Off Midodrine. It may have been due to Scopolamine 6. Hypothyroid: Synthroid 7. DVT Prophylaxis: Heparin S/Q 8. Ulcerative Colitis: Colazol 9. Iron Deficiency Anemia: Iron Supplement 10. Advance Directives: Son is HCP. Full code 11. N/V: Tigan. Can't have Zofran or Compazine with Tikosyn 12. UTI: Ceftriaxone once a day until she can take PO 10/08/18 16:36
[2018-10-08] MEDS: Atorvastatin* 80 MG TAB PO SCH (18:00)
[2018-10-08] MEDS ORDERED: glipiZIDE TAB* 5 MG PO ONE (18:15)
[2018-10-08] MEDS: cefTRIAXone(*) 1 GM in NS 0.9% 50 ML* 50 ML IVPB SCH (20:13)
[2018-10-09 04:50] LABS: ABS Basophils 0 10^3/ul (0-0.2); ABS Eosinophils 0.2 10^3/ul (0-0.6); ABS Lymphocytes 2.7 10^3/ul (1.0-4.8); ABS Monocytes 0.7 10^3/ul (0-0.8); ABS Neutrophils 6.3 10^3/ul (1.5-7.7); ABS Nucleated RBC 0 10^3/ul; Eosinophil % 1.7 %; Hematocrit 30 % (35-47); Lymphocyte % 27.3 %; Mean Corpuscular HGB Conc 34 g/dl (31-36); Mean Corpuscular Hemoglobin 29 pg (27-31); Mean Corpuscular Volume 88 fL (80-97); Mean Platelet Volume 7.5 fL (7.4-10.4); Nucleated Red Blood Cells % 0; Platelet Count 225 10^3/ul (150-450); Red Blood Count 3.41 10^6/ul (4.00-5.40); Red Cell Distribution Width 17 % (10.5-15); White Blood Count 9.8 10^3/ul (3.5-10.8)
[2018-10-09 05:15] LABS: Albumin 3.2 g/dL (3.2-5.2); Calcium 9.5 mg/dL (8.6-10.3); EGFR African American 63.8 (>60); EGFR Non-African American 52.7 (>60); Globulin 3.2 g/dL (2-4); Potassium 3.9 mmol/L (3.5-5.0); Total Bilirubin 0.4 mg/dL (0.2-1.0); Total Protein 6.4 g/dL (6.4-8.9)
[2018-10-09] MEDS: Levothyroxine TAB* 25 MCG TAB PO SCH (06:09)
[2018-10-09] MEDS: Heparin VIAL(*) 5000 UNITS/ML VIAL (FIVE THOUSAND) SUBCUT SCH ×3 (06:09→21:28)
[2018-10-09] MEDS: Sertraline* 25 MG TAB PO SCH (08:26)
[2018-10-09] MEDS: metFORMIN* 500 MG TAB PO SCH ×2 (08:27→17:18)
[2018-10-09] MEDS: Pantoprazole TAB * 40 MG TAB PO SCH (08:27)
[2018-10-09] MEDS: Aspirin EC TAB* 81 MG TAB.EC PO SCH (08:28)
[2018-10-09] MEDS: glipiZIDE TAB* 5 MG PO SCH ×2 (08:28→17:18)
[2018-10-09] MEDS: Ferrous Sulfate TAB* 325 MG PO SCH (08:29)
[2018-10-09] MEDS: Calcium/Vitamin D TAB 250/125* TAB PO SCH (08:29)
[2018-10-09] MEDS: Docusate CAP* 100 MG PO SCH ×2 (08:29→19:43)
[2018-10-09] MEDS: BALSALAZIDE SODIUM 750 MG PO SCH ×2 (08:30→19:42)
[2018-10-09] MEDS: Insulin LISPRO* 1 UNITS UNIT SUBCUT SCH ×4 (08:50→21:28)
[2018-10-09] MEDS: Dofetilide CAP* 125 MCG PO SCH ×2 (08:50→19:42)
[2018-10-09] MEDS: Acetaminophen TAB* 325 MG PO PRN (09:55)
[2018-10-09] MEDS: Amoxicillin PO (*) 500 MG CAP PO SCH ×2 (13:28→19:41)
[2018-10-09] MEDS: Atorvastatin* 80 MG TAB PO SCH (17:18)
--- NOTE | 2018-10-09 17:40 | PN ---
Progress Note Date of Service: 10/09/18 Note: DANIEL PEARL was visited. Therapy notes read and reviewed. She is doing better. Her IV Ceftriaxone was stopped and she is now on Amoxicillin. Her urine sens to amox. She is back to where she was before she got sick. Current Medications: Active Medications Generic Name Dose Route Start Last Admin Trade Name Freq PRN Reason Stop Dose Admin Acetaminophen 650 mg 10/01/18 12:42 10/09/18 09:55 Tylenol Tab* PO 650 mg Q6H PRN Administration FEVER/HEADACHE Acetaminophen 650 mg 10/07/18 17:02 10/07/18 18:09 Tylenol Supp* [place] 650 mg Q6H PRN Administration HEADACHE/DISCOMFORT Amoxicillin 500 mg 10/09/18 14:00 10/09/18 13:28 Amoxicillin Po (*) PO 500 mg TID ARIES Administration Aspirin 81 mg 10/02/18 09:00 10/09/18 08:28 Aspirin Ec Tab* PO 81 mg DAILY ARIES Administration Atorvastatin Calcium 80 mg 10/02/18 17:00 10/09/18 17:18 Lipitor* PO 80 mg 1700 ARIES Administration Balsalazide 1,500 mg 10/01/18 21:00 10/09/18 08:30 Colazal Cap(Nf) PO 1,500 mg BID ARIES Administration Protocol Calcium/Vitamin D 1 tab 10/02/18 09:00 10/09/18 08:29 Oscal D Tab 250/125* PO 1 tab DAILY ARIES Administration Docusate Sodium 100 mg 10/01/18 21:00 10/09/18 08:29 Colace Cap* PO 100 mg BID ARIES Administration Dofetilide 125 mcg 10/01/18 21:00 10/09/18 08:50 Tikosyn Cap* PO 125 mcg BID ARIES Administration Ferrous Sulfate 325 mg 10/02/18 09:00 10/09/18 08:29 Ferrous Sulfate Tab* PO 325 mg DAILY ARIES Administration Glipizide 10 mg 10/09/18 08:00 10/09/18 17:18 Glucotrol Tab* PO 10 mg 0800,1700 ARIES Administration Heparin Sodium (Porcine) 5,000 units 10/01/18 14:00 10/09/18 13:31 Heparin Vial(*) SUBCUT 5,000 units Q8HR ARIES Administration Insulin Human Lispro 0 units 10/01/18 16:30 10/09/18 17:19 Humalog* SUBCUT 2 units ACHS ARIES Administration Protocol Levothyroxine Sodium 12.5 mcg 10/02/18 06:00 10/09/18 06:09 Synthroid Tab* PO 12.5 mcg DAILY@0600 ARIES Administration Loperamide HCl 2 mg 10/05/18 17:52 Imodium Cap* PO .SEE DIRECTIONS PRN DIARRHEA Lorazepam 0.5 mg 10/02/18 15:22 Ativan Tab(*) PO Q6H PRN AGITATION Magnesium Hydroxide 30 ml 10/01/18 12:42 Milk Of Magnesia Liq* PO Q6H PRN CONSTIPATION Metformin HCl 500 mg 10/02/18 17:00 10/09/18 17:18 Glucophage* PO 500 mg 0800,1700 ARIES Administration Pantoprazole Sodium 40 mg 10/02/18 09:00 10/09/18 08:27 Protonix Tab (Nf) PO 40 mg DAILY ARIES Administration Senna 2 tab 10/01/18 12:42 Senokot Tab* PO BEDTIME PRN CONSTIPATION Sertraline HCl 25 mg 10/07/18 09:00 10/09/18 08:26 Zoloft* PO 25 mg DAILY ARIES Administration Trimethobenzamide HCl 300 mg 10/05/18 17:56 10/08/18 05:42 Tigan Cap* PO 300 mg Q8H PRN Administration NAUSEA Trimethobenzamide HCl 200 mg 10/07/18 14:46 Tigan Im* IM Q8H PRN NAUSEA Vital Signs: Vital Signs Temp Pulse Resp BP Pulse Ox 97.9 F 71 18 140/58 97 10/09/18 05:45 10/09/18 05:45 10/09/18 05:45 10/09/18 05:45 10/09/18 05:45 Lab Results: Laboratory Results - last 24 hr 10/08/18 10/09/18 10/09/18 20:15 04:36 04:36 WBC 9.8 RBC 3.41 L Hgb 10.0 L Hct 30 L MCV 88 MCH 29 MCHC 34 RDW 17 H Plt Count 225 MPV 7.5 Neut % (Auto) 63.8 Lymph % (Auto) 27.3 [place] % (Auto) 6.9 Eos % (Auto) 1.7 Baso % (Auto) 0.3 Absolute Neuts (auto) 6.3 Absolute Lymphs (auto) 2.7 Absolute Monos (auto) 0.7 Absolute Eos (auto) 0.2 Absolute Basos (auto) 0 Absolute Nucleated RBC 0 Nucleated RBC % 0 Sodium 136 Potassium 3.9 Chloride 105 Carbon Dioxide 22 Anion Gap 9 BUN 21 Creatinine 1.00 H Est GFR ( Amer) 63.8 Est GFR (Non-Af Amer) 52.7 BUN/Creatinine Ratio 21.0 H Glucose 161 H POC Glucose (mg/dL) 178 H Calcium 9.5 Total Bilirubin 0.40 AST 33 ALT 17 Alkaline Phosphatase 73 Total Protein 6.4 Albumin 3.2 Globulin 3.2 Albumin/Globulin Ratio 1.0 10/09/18 10/09/18 10/09/18 08:26 11:39 16:52 WBC RBC Hgb Hct MCV MCH MCHC RDW Plt Count MPV Neut % (Auto) Lymph % (Auto) [place] % (Auto) Eos % (Auto) Baso % (Auto) Absolute Neuts (auto) Absolute Lymphs (auto) Absolute Monos (auto) Absolute Eos (auto) Absolute Basos (auto) Absolute Nucleated RBC Nucleated RBC % Sodium Potassium Chloride Carbon Dioxide Anion Gap BUN Creatinine Est GFR ( Amer) Est GFR (Non-Af Amer) BUN/Creatinine Ratio Glucose POC Glucose (mg/dL) 198 H 183 H 152 H Calcium Total Bilirubin AST ALT Alkaline Phosphatase Total Protein Albumin Globulin Albumin/Globulin Ratio Exam: HEENT: Head NC/AT, EOMI LUNGS: Clear HEART: regular rhythm ABDOMEN: Soft EXTREMITIES: peripheral pulses intact. Normal tone NEUROLOGIC: Rt homonymous hemianopsia, has trouble with visual field below waist. Motor strength good Assessment/Plan: 1. 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 Diabetes: Resume Metformin and glipizide, BS ok, increased glipizide to 10 3. Delirium: Seroquel helped but sedated. Try Ativan if needed 4. Atrial fibrillation: On Tikosyn; will resume NOAC in 5 days 5. Hypothyroid: Synthroid 6. DVT Prophylaxis: Heparin S/Q 7. Ulcerative Colitis: Colazol 8. Iron Deficiency Anemia: Iron Supplement 9. Advance Directives: Son is HCP. Full code 10. N/V: Tigan. Can't have Zofran or Compazine with Tikosyn 11. UTI: Ceftriaxone stopped, now on Amox, day 110/09/18 17:40
[2018-10-10] MEDS: Heparin VIAL(*) 5000 UNITS/ML VIAL (FIVE THOUSAND) SUBCUT SCH ×3 (05:35→21:14)
[2018-10-10] MEDS: Levothyroxine TAB* 25 MCG TAB PO SCH (05:35)
[2018-10-10] MEDS: Docusate CAP* 100 MG PO SCH ×2 (08:54→21:08)
[2018-10-10] MEDS: metFORMIN* 500 MG TAB PO SCH ×2 (08:56→17:12)
[2018-10-10] MEDS: Amoxicillin PO (*) 500 MG CAP PO SCH ×3 (08:56→21:06)
[2018-10-10] MEDS: glipiZIDE TAB* 5 MG PO SCH ×2 (08:56→17:13)
[2018-10-10] MEDS: Aspirin EC TAB* 81 MG TAB.EC PO SCH (08:57)
[2018-10-10] MEDS: BALSALAZIDE SODIUM 750 MG PO SCH ×2 (08:57→21:07)
[2018-10-10] MEDS: Ferrous Sulfate TAB* 325 MG PO SCH (08:57)
[2018-10-10] MEDS: Dofetilide CAP* 125 MCG PO SCH ×2 (08:57→21:09)
[2018-10-10] MEDS: Pantoprazole TAB * 40 MG TAB PO SCH (08:57)
[2018-10-10] MEDS: Sertraline* 25 MG TAB PO SCH (08:57)
[2018-10-10] MEDS: Calcium/Vitamin D TAB 250/125* TAB PO SCH (08:57)
[2018-10-10] MEDS: Insulin LISPRO* 1 UNITS UNIT SUBCUT SCH ×4 (10:23→21:12)
[2018-10-10] MEDS: Acetaminophen TAB* 325 MG PO PRN (11:10)
--- NOTE | 2018-10-10 15:00 | PN ---
Progress Note Date of Service: 10/10/18 Note: DANIEL PEARL was visited. Nursing notes read and reviewed. She was able to walk with the nursing staff and did okay. Still with homonymous hemianopsia Current Medications: Active Medications Generic Name Dose Route Start Last Admin Trade Name Freq PRN Reason Stop Dose Admin Acetaminophen 650 mg 10/01/18 12:42 10/10/18 11:10 Tylenol Tab* PO 650 mg Q6H PRN Administration FEVER/HEADACHE Acetaminophen 650 mg 10/07/18 17:02 10/07/18 18:09 Tylenol Supp* [place] 650 mg Q6H PRN Administration HEADACHE/DISCOMFORT Amoxicillin 500 mg 10/09/18 14:00 10/10/18 13:22 Amoxicillin Po (*) PO 10/13/18 23:59 500 mg TID ARIES Administration Aspirin 81 mg 10/02/18 09:00 10/10/18 08:57 Aspirin Ec Tab* PO 81 mg DAILY ARIES Administration Atorvastatin Calcium 80 mg 10/02/18 17:00 10/09/18 17:18 Lipitor* PO 80 mg 1700 ARIES Administration Balsalazide 1,500 mg 10/01/18 21:00 10/10/18 08:57 Colazal Cap(Nf) PO 1,500 mg BID ARIES Administration Protocol Calcium/Vitamin D 1 tab 10/02/18 09:00 10/10/18 08:57 Oscal D Tab 250/125* PO 1 tab DAILY ARIES Administration Docusate Sodium 100 mg 10/01/18 21:00 10/10/18 08:54 Colace Cap* PO Not Given BID ARIES Dofetilide 125 mcg 10/01/18 21:00 10/10/18 08:57 Tikosyn Cap* PO 125 mcg BID ARIES Administration Ferrous Sulfate 325 mg 10/02/18 09:00 10/10/18 08:57 Ferrous Sulfate Tab* PO 325 mg DAILY ARIES Administration Glipizide 10 mg 10/09/18 08:00 10/10/18 08:56 Glucotrol Tab* PO 10 mg 0800,1700 ARIES Administration Heparin Sodium (Porcine) 5,000 units 10/01/18 14:00 10/10/18 13:18 Heparin Vial(*) SUBCUT 5,000 units Q8HR ARIES Administration Insulin Human Lispro 0 units 10/01/18 16:30 10/10/18 13:17 Humalog* SUBCUT 1 units ACHS ARIES Administration Protocol Levothyroxine Sodium 12.5 mcg 10/02/18 06:00 10/10/18 05:35 Synthroid Tab* PO 12.5 mcg DAILY@0600 ARIES Administration Loperamide HCl 2 mg 10/05/18 17:52 Imodium Cap* PO .SEE DIRECTIONS PRN DIARRHEA Lorazepam 0.5 mg 10/02/18 15:22 Ativan Tab(*) PO Q6H PRN AGITATION Magnesium Hydroxide 30 ml 10/01/18 12:42 Milk Of Magnesia Liq* PO Q6H PRN CONSTIPATION Metformin HCl 500 mg 10/02/18 17:00 10/10/18 08:56 Glucophage* PO 500 mg 0800,1700 ARIES Administration Pantoprazole Sodium 40 mg 10/02/18 09:00 10/10/18 08:57 Protonix Tab (Nf) PO 40 mg DAILY ARIES Administration Senna 2 tab 10/01/18 12:42 Senokot Tab* PO BEDTIME PRN CONSTIPATION Sertraline HCl 25 mg 10/07/18 09:00 10/10/18 08:57 Zoloft* PO 25 mg DAILY ARIES Administration Trimethobenzamide HCl 300 mg 10/05/18 17:56 10/08/18 05:42 Tigan Cap* PO 300 mg Q8H PRN Administration NAUSEA Trimethobenzamide HCl 200 mg 10/07/18 14:46 Tigan Im* IM Q8H PRN NAUSEA Vital Signs: Vital Signs Temp Pulse Resp BP Pulse Ox 98.1 F 70 18 144/58 98 10/10/18 05:41 10/10/18 05:41 10/10/18 05:41 10/10/18 05:41 10/10/18 05:41 Lab Results: Laboratory Results - last 24 hr 10/09/18 10/09/18 10/10/18 16:52 20:29 07:25 POC Glucose (mg/dL) 152 H 145 H 174 H Exam: HEENT: Head NC/AT, EOMI LUNGS: Clear HEART: regular rhythm ABDOMEN: Soft EXTREMITIES: peripheral pulses intact. Normal tone NEUROLOGIC: Rt homonymous hemianopsia, has trouble with visual field looking down. Motor strength good Assessment/Plan: 1. 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 ASA, will resume NOAC in [address] of head neg 2. Diabetes: Resume Metformin and glipizide, BS ok 3. Delirium: Seroquel helped but sedated. Try Ativan if needed 4. Atrial fibrillation: On Tikosyn; will resume NOAC in 4 days 5. Hypothyroid: Synthroid 6. DVT Prophylaxis: Heparin S/Q 7. Ulcerative Colitis: Colazol 8. Iron Deficiency Anemia: Iron Supplement 9. Advance Directives: Son is HCP. Has MOLST. DNR 10. N/V: Tigan. Can't have Zofran or Compazine with Tikosyn 11. UTI: Amox, day 10/2010/10/18 15:01
[2018-10-10] MEDS: Atorvastatin* 80 MG TAB PO SCH (17:12)
[2018-10-11] MEDS: Levothyroxine TAB* 25 MCG TAB PO SCH (05:53)
[2018-10-11] MEDS: Heparin VIAL(*) 5000 UNITS/ML VIAL (FIVE THOUSAND) SUBCUT SCH ×3 (05:53→21:15)
[2018-10-11] MEDS: glipiZIDE TAB* 5 MG PO SCH ×2 (09:27→17:37)
[2018-10-11] MEDS: Insulin LISPRO* 1 UNITS UNIT SUBCUT SCH ×4 (09:27→21:09)
[2018-10-11] MEDS: metFORMIN* 500 MG TAB PO SCH ×2 (09:28→17:37)
[2018-10-11] MEDS: Aspirin EC TAB* 81 MG TAB.EC PO SCH (09:28)
[2018-10-11] MEDS: Amoxicillin PO (*) 500 MG CAP PO SCH ×3 (09:29→21:08)
[2018-10-11] MEDS: Sertraline* 25 MG TAB PO SCH (09:30)
[2018-10-11] MEDS: Calcium/Vitamin D TAB 250/125* TAB PO SCH (09:30)
[2018-10-11] MEDS: Pantoprazole TAB * 40 MG TAB PO SCH (09:30)
[2018-10-11] MEDS: Dofetilide CAP* 125 MCG PO SCH ×2 (09:31→21:08)
[2018-10-11] MEDS: Docusate CAP* 100 MG PO SCH ×2 (09:31→21:08)
[2018-10-11] MEDS: BALSALAZIDE SODIUM 750 MG PO SCH ×2 (09:34→21:07)
[2018-10-11] MEDS: Acetaminophen TAB* 325 MG PO PRN (09:35)
[2018-10-11] MEDS: Ferrous Sulfate TAB* 325 MG PO SCH (09:36)
--- NOTE | 2018-10-11 15:29 | PN ---
Progress Note Date of Service: 10/11/18 Note: DANIEL PEARL was visited. Nursing notes read and reviewed. Her appearance is really good. She is eating and drinking fairly well. Current Medications: Active Medications Generic Name Dose Route Start Last Admin Trade Name Freq PRN Reason Stop Dose Admin Acetaminophen 650 mg 10/01/18 12:42 10/11/18 09:35 Tylenol Tab* PO 650 mg Q6H PRN Administration FEVER/HEADACHE Acetaminophen 650 mg 10/07/18 17:02 10/07/18 18:09 Tylenol Supp* [place] 650 mg Q6H PRN Administration HEADACHE/DISCOMFORT Amoxicillin 500 mg 10/09/18 14:00 10/11/18 13:33 Amoxicillin Po (*) PO 10/13/18 23:59 500 mg TID ARIES Administration Aspirin 81 mg 10/02/18 09:00 10/11/18 09:28 Aspirin Ec Tab* PO 81 mg DAILY ARIES Administration Atorvastatin Calcium 80 mg 10/02/18 17:00 10/10/18 17:12 Lipitor* PO 80 mg 1700 ARIES Administration Balsalazide 1,500 mg 10/01/18 21:00 10/11/18 09:34 Colazal Cap(Nf) PO 1,500 mg BID ARIES Administration Protocol Calcium/Vitamin D 1 tab 10/02/18 09:00 10/11/18 09:30 Oscal D Tab 250/125* PO 1 tab DAILY ARIES Administration Docusate Sodium 100 mg 10/01/18 21:00 10/11/18 09:31 Colace Cap* PO Not Given BID ARIES Dofetilide 125 mcg 10/01/18 21:00 10/11/18 09:31 Tikosyn Cap* PO 125 mcg BID ARIES Administration Ferrous Sulfate 325 mg 10/02/18 09:00 10/11/18 09:36 Ferrous Sulfate Tab* PO 325 mg DAILY ARIES Administration Glipizide 10 mg 10/09/18 08:00 10/11/18 09:27 Glucotrol Tab* PO 10 mg 0800,1700 ARIES Administration Heparin Sodium (Porcine) 5,000 units 10/01/18 14:00 10/11/18 13:33 Heparin Vial(*) SUBCUT 5,000 units Q8HR ARIES Administration Insulin Human Lispro 0 units 10/01/18 16:30 10/11/18 13:33 Humalog* SUBCUT 2 units ACHS ARIES Administration Protocol Levothyroxine Sodium 12.5 mcg 10/02/18 06:00 10/11/18 05:53 Synthroid Tab* PO 12.5 mcg DAILY@0600 ARIES Administration Loperamide HCl 2 mg 10/05/18 17:52 Imodium Cap* PO .SEE DIRECTIONS PRN DIARRHEA Lorazepam 0.5 mg 10/02/18 15:22 Ativan Tab(*) PO Q6H PRN AGITATION Magnesium Hydroxide 30 ml 10/01/18 12:42 Milk Of Magnesia Liq* PO Q6H PRN CONSTIPATION Metformin HCl 500 mg 10/02/18 17:00 10/11/18 09:28 Glucophage* PO 500 mg 0800,1700 ARIES Administration Pantoprazole Sodium 40 mg 10/02/18 09:00 10/11/18 09:30 Protonix Tab (Nf) PO 40 mg DAILY ARIES Administration Senna 2 tab 10/01/18 12:42 Senokot Tab* PO BEDTIME PRN CONSTIPATION Sertraline HCl 25 mg 10/07/18 09:00 10/11/18 09:30 Zoloft* PO 25 mg DAILY ARIES Administration Trimethobenzamide HCl 300 mg 10/05/18 17:56 10/08/18 05:42 Tigan Cap* PO 300 mg Q8H PRN Administration NAUSEA Trimethobenzamide HCl 200 mg 10/07/18 14:46 Tigan Im* IM Q8H PRN NAUSEA Vital Signs: Vital Signs Temp Pulse Resp BP Pulse Ox 97.6 F 87 16 137/57 99 10/11/18 05:51 10/11/18 05:51 10/11/18 05:51 10/11/18 05:51 10/11/18 08:00 Lab Results: Laboratory Results - last 24 hr 10/10/18 10/10/18 10/10/18 12:13 16:42 20:55 POC Glucose (mg/dL) 143 H 98 195 H 10/11/18 10/11/18 08:00 12:13 POC Glucose (mg/dL) 171 H 190 H Exam: HEENT: Head NC/AT, EOMI LUNGS: Clear HEART: regular rhythm ABDOMEN: Soft EXTREMITIES: peripheral pulses intact. Normal tone NEUROLOGIC: Rt homonymous hemianopsia, has trouble with visual field looking down. Motor strength good Assessment/Plan: 1. 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 Diabetes: Metformin and glipizide, BS ok 3. Delirium: Ativan if needed 4. Atrial fibrillation: On Tikosyn; will resume NOAC in 3 days 5. Hypothyroid: Synthroid 6. DVT Prophylaxis: Heparin S/Q 7. Ulcerative Colitis: Colazol 8. Iron Deficiency Anemia: Iron Supplement 9. Advance Directives: Son is HCP. Has MOLST. DNR 10. N/V: Tigan. Can't have Zofran or Compazine with Tikosyn 11. UTI: Amox, day 3/10/11/18 15:29
[2018-10-11] MEDS: Atorvastatin* 80 MG TAB PO SCH (17:37)
[2018-10-12] MEDS: Levothyroxine TAB* 25 MCG TAB PO SCH (05:59)
[2018-10-12] MEDS: Heparin VIAL(*) 5000 UNITS/ML VIAL (FIVE THOUSAND) SUBCUT SCH ×3 (05:59→21:57)
[2018-10-12] MEDS: Docusate CAP* 100 MG PO SCH ×2 (07:31→20:25)
[2018-10-12] MEDS: glipiZIDE TAB* 5 MG PO SCH ×2 (07:42→17:05)
[2018-10-12] MEDS: metFORMIN* 500 MG TAB PO SCH ×2 (07:42→17:05)
[2018-10-12] MEDS: Aspirin EC TAB* 81 MG TAB.EC PO SCH (09:21)
[2018-10-12] MEDS: Calcium/Vitamin D TAB 250/125* TAB PO SCH (09:21)
[2018-10-12] MEDS: Pantoprazole TAB * 40 MG TAB PO SCH (09:21)
[2018-10-12] MEDS: Ferrous Sulfate TAB* 325 MG PO SCH (09:21)
[2018-10-12] MEDS: Amoxicillin PO (*) 500 MG CAP PO SCH ×3 (09:22→20:24)
[2018-10-12] MEDS: BALSALAZIDE SODIUM 750 MG PO SCH ×2 (09:23→20:24)
[2018-10-12] MEDS: Sertraline* 25 MG TAB PO SCH (09:24)
[2018-10-12] MEDS: Dofetilide CAP* 125 MCG PO SCH ×2 (09:25→20:25)
[2018-10-12] MEDS: Insulin LISPRO* 1 UNITS UNIT SUBCUT SCH ×4 (09:26→20:25)
[2018-10-12] MEDS: Atorvastatin* 80 MG TAB PO SCH (17:05)
--- NOTE | 2018-10-12 17:36 | PN ---
Progress Note Date of Service: 10/12/18 Note: DANIEL EPARL was visited. Therapy notes read and reviewed. Her memory is still poor but she looks a lot better. Still with LOB and Right HH Current Medications: Active Medications Generic Name Dose Route Start Last Admin Trade Name Freq PRN Reason Stop Dose Admin Acetaminophen 650 mg 10/01/18 12:42 10/11/18 09:35 Tylenol Tab* PO 650 mg Q6H PRN Administration FEVER/HEADACHE Acetaminophen 650 mg 10/07/18 17:02 10/07/18 18:09 Tylenol Supp* [place] 650 mg Q6H PRN Administration HEADACHE/DISCOMFORT Amoxicillin 500 mg 10/09/18 14:00 10/12/18 14:29 Amoxicillin Po (*) PO 10/13/18 23:59 500 mg TID ARIES Administration Aspirin 81 mg 10/02/18 09:00 10/12/18 09:21 Aspirin Ec Tab* PO 81 mg DAILY ARIES Administration Atorvastatin Calcium 80 mg 10/02/18 17:00 10/12/18 17:05 Lipitor* PO 80 mg 1700 ARIES Administration Balsalazide 1,500 mg 10/01/18 21:00 10/12/18 09:23 Colazal Cap(Nf) PO 1,500 mg BID ARIES Administration Protocol Calcium/Vitamin D 1 tab 10/02/18 09:00 10/12/18 09:21 Oscal D Tab 250/125* PO 1 tab DAILY ARIES Administration Docusate Sodium 100 mg 10/01/18 21:00 10/12/18 07:31 Colace Cap* PO Not Given BID ARIES Dofetilide 125 mcg 10/01/18 21:00 10/12/18 09:25 Tikosyn Cap* PO 125 mcg BID ARIES Administration Ferrous Sulfate 325 mg 10/02/18 09:00 10/12/18 09:21 Ferrous Sulfate Tab* PO 325 mg DAILY ARIES Administration Glipizide 10 mg 10/09/18 08:00 10/12/18 17:05 Glucotrol Tab* PO 10 mg 0800,1700 ARIES Administration Heparin Sodium (Porcine) 5,000 units 10/01/18 14:00 10/12/18 14:30 Heparin Vial(*) SUBCUT 5,000 units Q8HR ARIES Administration Insulin Human Lispro 0 units 10/01/18 16:30 10/12/18 17:05 Humalog* SUBCUT 2 units ACHS ARIES Administration Protocol Levothyroxine Sodium 12.5 mcg 10/02/18 06:00 10/12/18 05:59 Synthroid Tab* PO 12.5 mcg DAILY@0600 ARIES Administration Loperamide HCl 2 mg 10/05/18 17:52 Imodium Cap* PO .SEE DIRECTIONS PRN DIARRHEA Lorazepam 0.5 mg 10/02/18 15:22 Ativan Tab(*) PO Q6H PRN AGITATION Magnesium Hydroxide 30 ml 10/01/18 12:42 Milk Of Magnesia Liq* PO Q6H PRN CONSTIPATION Metformin HCl 500 mg 10/02/18 17:00 10/12/18 17:05 Glucophage* PO 500 mg 0800,1700 ARIES Administration Pantoprazole Sodium 40 mg 10/02/18 09:00 10/12/18 09:21 Protonix Tab (Nf) PO 40 mg DAILY ARIES Administration Senna 2 tab 10/01/18 12:42 Senokot Tab* PO BEDTIME PRN CONSTIPATION Sertraline HCl 25 mg 10/07/18 09:00 10/12/18 09:24 Zoloft* PO 25 mg DAILY ARIES Administration Trimethobenzamide HCl 300 mg 10/05/18 17:56 10/08/18 05:42 Tigan Cap* PO 300 mg Q8H PRN Administration NAUSEA Trimethobenzamide HCl 200 mg 10/07/18 14:46 Tigan Im* IM Q8H PRN NAUSEA Vital Signs: Vital Signs Temp Pulse Resp BP Pulse Ox 97.5 F 68 16 142/54 97 10/12/18 16:10 10/12/18 16:10 10/12/18 16:10 10/12/18 16:10 10/12/18 16:10 Lab Results: Laboratory Results - last 24 hr 10/11/18 10/11/18 10/12/18 17:17 21:00 07:40 POC Glucose (mg/dL) 132 H 172 H 164 H 10/12/18 10/12/18 11:41 16:36 POC Glucose (mg/dL) 122 H 175 H Exam: HEENT: Head NC/AT, EOMI LUNGS: Clear HEART: regular rhythm ABDOMEN: Soft EXTREMITIES: peripheral pulses intact. Normal tone NEUROLOGIC: Rt homonymous hemianopsia, has trouble with visual field looking down. Motor strength good Assessment/Plan: 1. 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 ASA, will resume NOAC in [address] of head neg 2. Diabetes: Metformin and glipizide, BS ok 3. Delirium: Ativan if needed 4. Atrial fibrillation: On Tikosyn; will resume NOAC in 2 days 5. Hypothyroid: Synthroid 6. DVT Prophylaxis: Heparin S/Q 7. Ulcerative Colitis: Colazol 8. Iron Deficiency Anemia: Iron Supplement 9. Advance Directives: Son is HCP. Has MOLST. DNR 10. N/V: Tigan. Can't have Zofran or Compazine with Tikosyn 11. UTI: Amox, day 4/5 10/12/18 17:38
[2018-10-13] MEDS: Levothyroxine TAB* 25 MCG TAB PO SCH (06:00)
[2018-10-13] MEDS: Heparin VIAL(*) 5000 UNITS/ML VIAL (FIVE THOUSAND) SUBCUT SCH ×3 (06:00→20:58)
[2018-10-13] MEDS: Insulin LISPRO* 1 UNITS UNIT SUBCUT SCH ×4 (08:52→20:48)
[2018-10-13] MEDS: Dofetilide CAP* 125 MCG PO SCH ×2 (08:54→20:54)
[2018-10-13] MEDS: Pantoprazole TAB * 40 MG TAB PO SCH (08:54)
[2018-10-13] MEDS: Sertraline* 25 MG TAB PO SCH (08:54)
[2018-10-13] MEDS: BALSALAZIDE SODIUM 750 MG PO SCH ×2 (08:54→20:54)
[2018-10-13] MEDS: metFORMIN* 500 MG TAB PO SCH ×2 (08:55→17:03)
[2018-10-13] MEDS: Amoxicillin PO (*) 500 MG CAP PO SCH ×3 (08:55→20:54)
[2018-10-13] MEDS: glipiZIDE TAB* 5 MG PO SCH ×2 (08:55→17:03)
[2018-10-13] MEDS: Aspirin EC TAB* 81 MG TAB.EC PO SCH (08:55)
[2018-10-13] MEDS: Calcium/Vitamin D TAB 250/125* TAB PO SCH (08:55)
[2018-10-13] MEDS: Ferrous Sulfate TAB* 325 MG PO SCH (08:55)
[2018-10-13] MEDS: Docusate CAP* 100 MG PO SCH ×2 (08:59→19:13)
--- NOTE | 2018-10-13 12:46 | PMRUTEAM ---
PMRU: Team Meeting Current Status: Nursing: Current Status Skin Deviations [Abdomen] Bruise Skin Deviation Description [ no deviations noted none] Skin Deviation Description [ multiple bruises in varipus stages of healing Abdomen] Bladder Current Status voiding in br Bowel Current Status incontinent of bm this am. colace held Nutrition Current Status appetite fair Medication Current Status no pain meds given Physical Therapy: Current Status Bed Mobility Assistance Min Assist,Mod Assist Transfer Mobility Assistance Contact Guard Assist,Min Assist Transfer/Bed Mobility Rolling Walker Recommended Devices Ambulation Assistance Contact Guard Assist,Min Assist Ambulation Assistive Devices Rolling Walker Number of Feet Patient 120 Ambulated Ambulation Comment requiring cues and steadying assist Stairs Assistance Not Tested Stairs Recommended Devices Two Rails Number of Stairs 3 Objective Comments Pt requires frequent cues to stay on task with activity. Pt moving more slowly during today's tx session, nsg informed. Occupational Therapy: Current Status Upper Body Dressing Min Assist Lower Body Dressing Min Assist Bathing Min Assist Toileting Min Assist Toilet Transfer Contact Guard Assist,Min Assist Shower Transfer Contact Guard Assist Shower Transfer Progress TBA Eating Supervision,Min Assist Instrumental ADL unsafe to attempt IADLs at this time Rec Therapy: Current Status Summary of Assessment and RT assessment complete and pt. is aware of RT Clinical Impression services. Pt. has leisure activities in her room and often has visitors during the afternoon. Treatment Goals Pt. will engage in leisure activities while on the unit. Treatment Plan Provide RT services and encourage involvement. Social Work: Current Status Discharge Plan return home with home care svs and family support Potential for Family Training pt's family are involved and supportive Anticipated Discharge Home Destination Anticipated Discharge pt's family are uncertain of her discharge Destination Comment disposition Discharge With home care svs and family support Nutrition: Current Status Monitoring 1530: pt visited; no family present, pt soundly asleep. IVF @ 75ml/hr to provide hydration following n.v yesterday w/little po intake. Pt feeling better today; ate 40% of lunch meal, so appears to be improving. BGs still elevated (216- 305). Glipizide added 10/03, and is now up to home dose (10mg BID). However, insulin and oral agents not given yesterday due to n/v and no po intake. Afebrile since 1722 yesterday (100.4F). Glucerna Shakes remain available in unit pantry for supplemental kcals/prot. Speech: Current Status Assessment Patient is not progressing as expected. Concentation may have been affected by headache. Patient continues to require moderate or greater cueing to name or hint at the names of common objects and needs, to read letter and words, to initiate following directions, and to attend to items to the Right of midline. FIELD APPRAISER observed and informed OT that patient did not track or shift her eyes left or right, but held her gaze forward and turned her head to scan, which further restricts her field of vision. Speech Current Status Goal 1 Moderate Speech Goal 2 Current Status Moderate Speech Goal 3 Current Status Moderate Goals: Physical Therapy: Initial Goals Bed Mobility Assistance Supervision Transfer Mobility Assistance Supervision Transfer/Bed Mobility Rolling Walker Recommended Devices Ambulation Supervision Ambulation Recommended Devices Rolling Walker Ambulation Distance 150 Stairs Assistance Supervision Stair Recommended Devices One Rail Number of Stairs 12 Physical Therapy: Updated Goals Transfer/Bed Mobility Rolling Walker Recommended Devices Occupational Therapy: Initial Goals Goals to be Completed in (Days 14-21 ) Upper Body Bathing Routine Supervision/Set Up Lower Body Bathing Routine Supervision/Set Up Upper Body Dressing Routine Supervision/Set Up Lower Body Dressing Routine Supervision/Set Up Toilet Hygeine and Clothing Supervision/Set Up Management Routine Toilet Transfer Routine Supervision/Set Up Tub Transfer Routine Supervision/Set Up Functional Transfers for ADL Supervision/Set Up Grooming Routine Supervision/Set Up Feeding Routine Supervision/Set Up Nursing: Goals Bladder Goal supervision Bowel Goal supervision Nutrition Goal 100% of all meals Medication Goal supervision Nutrition: Goals Intervention Goals 1. Tolerates least-restrictive texture w/o evidence of difficulty swallowing. 2. Maintains adequate glycemic control per inpatient parameters w/consideration for advanced age. 3. Maintains adequate oral intake (>60%) to support maintenance of lean body mass. 4. Maintains regular bowel pattern w/o constipation or diarrhea. Speech: Goals Speech Goal 1 Language Expression Speech Evaluation Status Goal Moderate-Severe 1 Speech Current Status Goal 1 Moderate Goal 1 Comments Language Expression Long-Term Goal: Pt will use conversational repair strategies to cooperatively find words in structured conversation, 100% accuracy, given extra time, Independently. Status: Progressing slowly as expected Short-Term Goal: Pt will use conversational repair strategies to cooperatively find words in structured language activities, 75% accuracy, given Maximal skilled instruction and cueing. Status: Progressing as expected. Patient required moderate cueing to name objects and pictures. Given maximal prompts to say "what you do with it," patient responded with a verb and then named the object in her sentence. Patiet contnued to show poor awareness of task and goal, and did not initiate conversational repair by use of description or verb. Speech Goal 2 Language Comprehension Speech Goal 2 Evaluation Moderate Status Speech Goal 2 Current Status Moderate Speech Goal 2 Comments Language Comprehension Long-Term Goal: Pt will use compensatory strategies to demonstrate comprehension of 2-part verbal and written information of moderate complexity, 90% accuracy, Independently. Status: Progressing slowly as expected. Short-Term Goal: Pt will use compensatory strategies to demonstrate comprehension of complex , 2-part verbal and written information, 75 accuracy, given moderate extra time, and Maximum skilled instruction and cueing. Status: Progressing slowly as expected. FIELD APPRAISER presented a large book with two-column pages with matching pictureds, text ad pictures, or pairs of pictures in boxes. Patient required maximal verbal, visual and tactile cueing to attend to the page in front of her, point to name pictures, and find items on the right side. Patient attended best to reading text on the left, and demonstrated improved reading decoding skills . Speech Goal 3 Memory Speech Goal 3 Evaluation Moderate Status Speech Goal 3 Current Status Moderate Speech Goal 3 Comments Memory Goals: Long-Term Memory Goal: Pt will use compensatory strategies to encode and retrieve 4/4 new items after delay of 30 minutes, Independently, for independence in mobility safety, ADLs and community access. Status: Progressing slowly as expected. Short-term Memory Goal: Pt will use compensatory strategies to encode and retrieve 3/4 new items after delay of 5 minutes, given Moderate skilled instruction and cueing. Status: Progressing slowly as expected. Patient required moderate cueing to name the children and great grandchildren she had previously named in photos. FIELD APPRAISER provided maximal skilled instruction to use visual strategies: feeling the Right edge of book or tray, and of turning her head and "pointing her nose" to the right to find items right of center. After 8x repetitions with similar tasks, patient did not spontaneously use techniques or recall them verbally. Social Work: Goals Discharge Plan return home with home care svs and family support Potential for Family Training pt's family are involved and supportive Anticipated Discharge Home Destination Anticipated Discharge pt's family are uncertain of her discharge Destination Comment disposition Discharge With home care svs and family support Care Plan: Care Plan ADL's - Improve/Maintain Start: 10/02/18 08:47 Freq: DAILY Status: Active Target: Protocol: Activity Type Activity Date Activity User E-Sign Co-Sign Detail Recorded Client Recorded Date Recorded By Document 10/13/18 11:44 [id number] 10/13/18 11:45 [id number] 10/13/18 11:44 PMRU Outcome: ADL's/ADL Transfers Orders/Interventions Occupational Therapy Evaluation & Treatment Communication Tool in Patient Room Device Yes Address Deficits Secondary To: CVA Patient to receive OT 5x/wk for 60-120 Therex min/day Self Care Management Group Therapy Neuromuscular ReEducation UE/LE ADL's with Assist Yes: supervision ADL Transfers with Assist Yes: supervision Toileting: Transfers,Clothing Management Yes: ,Hygeine w/Assist supervision Light Kitchen/Laundry w/Assist No Progression Toward Outcome/Goals Progressing Outcome/Goals Met Pt able to participate in session this date, continues to be limited due to visual field cut and decreased memory of current limitations, which limit her ability to compensate for those deficits. Communication-Improve/Maintain Start: 10/01/18 12:54 Freq: DAILY Status: Active Target: Protocol: Activity Type Activity Date Activity User E-Sign Co-Sign Detail Recorded Client Recorded Date Recorded By Document 10/12/18 23:38 [id number] 10/12/18 23:38 [id number] 10/12/18 23:38 PMRU Outcome: Communication/Cognitive Status Outcome/Goals Makes Needs Known Effectively Progression Toward Outcomes/Goals Progressing DVT Prophylaxis- Improve/Maintain Start: 10/01/18 12:54 Freq: QSHIFT Status: Active Target: Protocol: Activity Type Activity Date Activity User E-Sign Co-Sign Detail Recorded Client Recorded Date Recorded By Document 10/13/18 08:30 [id number] 10/13/18 11:30 [id number] 10/13/18 08:30 PMRU Outcome: DVT Prophylaxis Outcome/Goals Remains Free of DVT Complies with DVT Prophylaxis /Treatment Demonstrates Knowledge of DVT Prevention/ Treatment TEDS Stockings on Every AM, Off at HS Progression Toward Outcome/Goals Progressing Discharge Planning - Improve/Maintain Start: 10/01/18 12:54 Freq: DAILY Status: Active Target: Protocol: Activity Type Activity Date Activity User E-Sign Co-Sign Detail Recorded Client Recorded Date Recorded By Document 10/12/18 23:38 [id number] 10/12/18 23:38 [id number] 10/12/18 23:38 PMRU Outcome: Discharge Planning Update Patient Family No Outcome/Goals Demonstrates Understanding of Discharge Plan Progression Toward Outcome/Goals Progressing Education-Improve/Maintain Start: 10/01/18 12:54 Freq: QSHIFT Status: Active Target: Protocol: Activity Type Activity Date Activity User E-Sign Co-Sign Detail Recorded Client Recorded Date Recorded By Document 10/13/18 08:30 [id number] 10/13/18 11:30 [id number] 10/13/18 08:30 PMRU Outcome: Education Outcome/Goals Encourage Questions Progression Toward Outcome/Goals Progressing /GI-Improve/Maintain Start: 10/01/18 12:54 Freq: QSHIFT Status: Active Target: Protocol: Activity Type Activity Date Activity User E-Sign Co-Sign Detail Recorded Client Recorded Date Recorded By Document 10/13/18 08:30 [id number] 10/13/18 11:30 [id number] 10/13/18 08:30 PMRU Outcome: Genitourinary/ Gastrointestinal Genitourinary- Outcome/Goals Maintain/ Achieve Urinary Continence Remain Free of Hospital- Acquired UTI Gastrointestinal-Outcome/Goals Maintain/ Achieve Bowel Regularity in Accordance with Pt's Baseline Prevent Constipation Laxatives as Ordered Progression Toward Outcome/Goals - Progressing Progression Toward Outcome/Goals - GI Progressing Medication Administration Start: 10/01/18 12:54 Freq: QSHIFT Status: Active Target: Protocol: Activity Type Activity Date Activity User E-Sign Co-Sign Detail Recorded Client Recorded Date Recorded By Document 10/13/18 08:30 [id number] 10/13/18 11:30 [id number] 10/13/18 08:30 PMRU Outcome: Medication Administration Assess Patient Knowledge/Teach Med Yes Education for all Meds Outcome/Goals Patient Independent with Medication Administration at Home Demonstrates Understanding Progression Towards Outcome/Goals Progressing Is Patient Going Home on Lovenox? No Metabolic Status- Improve/Maintain Start: 10/01/18 12:54 Freq: QSHIFT Status: Active Target: Protocol: Activity Type Activity Date Activity User E-Sign Co-Sign Detail Recorded Client Recorded Date Recorded By Document 10/13/18 08:30 [id number] 10/13/18 11:30 [id number] 10/13/18 08:30 PMRU Outcome: Metabolic Status Have Fingersticks Been Ordered Yes Fingerstick Order Frequency AC & HS Outcome/Goals Maintain/ Improve Metabolic Status Demonstrate Knowledge of Prevention/ Treatment of Metabolic Imbalances Progression Toward Outcome/Goals Progressing Mobility- Improve/Maintain Start: 10/01/18 16:49 Freq: DAILY Status: Active Target: Protocol: Activity Type Activity Date Activity User E-Sign Co-Sign Detail Recorded Client Recorded Date Recorded By Document 10/01/18 16:49 [id number] 10/01/18 16:50 [id number] 10/01/18 16:49 PMRU Outcome: Mobility Physical Therapy Evaluation and Yes Treatment Activity OOB with Assistance Yes Device Yes: FWW Assistance Yes: Min A Patient to be seen 5x/wk for 60-120 min/ Therex day for: Mobility Training Gait Training Balance Outcome/Goals Maintain/ Achieve Baseline Mobility Status Improve Mobility Status Demonstrates Proper Use of Assistive Devices Free from Complications of Immobility Bed Mobility Yes: Supervision Transfers Yes: S with FWW Gait x ft Yes: S with [id number] Up/Down Stairs Yes: S with 1 rail x1 flight With HEP Yes: Supervision Neurological- Improve/Maintain Start: 10/01/18 12:54 Freq: QSHIFT Status: Active Target: Protocol: Activity Type Activity Date Activity User E-Sign Co-Sign Detail Recorded Client Recorded Date Recorded By Document 10/13/18 08:30 [id number] 10/13/18 11:30 [id number] 10/13/18 08:30 PMRU Outcome: Neurological Weakness/Aphasia Weakness Outcome/Goals Maintain/ Achieve Baseline Neurological Status Improve Neurological Status Prevent Avoidable Neurological Decline Maintain/ Improve Strength/ROM Progression Toward Outcome/Goals Progressing Safety- Improve/Maintain Start: 10/01/18 12:54 Freq: QSHIFT Status: Active Target: Protocol: Activity Type Activity Date Activity User E-Sign Co-Sign Detail Recorded Client Recorded Date Recorded By Document 10/13/18 08:30 [id number] 10/13/18 11:30 [id number] 10/13/18 08:30 PMRU Outcome: Safety Outcome/Goals Remain Free of Injury or Harm Cooperates with Safety Measures for Least Restrictive Environment Prevent Falls/ Injury Progression Toward Outcome/Goals Progressing Outcome/Goals Met Comment BA armed when in bed, PA on while oob Medicine Note: Length of Stay: 1 week Anticipated Discharge Destination: Home Tentative Discharge Date: 10/20/18 Discharged to: Home
[2018-10-13] MEDS: Acetaminophen TAB* 325 MG PO PRN (16:19)
[2018-10-13] MEDS: Atorvastatin* 80 MG TAB PO SCH (17:03)
--- NOTE | 2018-10-13 18:38 | PN ---
Progress Note Date of Service: 10/13/18 Note: DANIEL PEARL was visited. Therapy notes read and reviewed. She was discussed in interdisciplinary team rounds today. Stroke education happened this afternoon. The family would like to take her home but 24 hour care may be too much for them. Current Medications: Active Medications Generic Name Dose Route Start Last Admin Trade Name Freq PRN Reason Stop Dose Admin Acetaminophen 650 mg 10/01/18 12:42 10/13/18 16:19 Tylenol Tab* PO 650 mg Q6H PRN Administration FEVER/HEADACHE Acetaminophen 650 mg 10/07/18 17:02 10/07/18 18:09 Tylenol Supp* DE 650 mg Q6H PRN Administration HEADACHE/DISCOMFORT Amoxicillin 500 mg 10/09/18 14:00 10/13/18 13:38 Amoxicillin Po (*) PO 10/13/18 23:59 500 mg TID ARIES Administration Aspirin 81 mg 10/02/18 09:00 10/13/18 08:55 Aspirin Ec Tab* PO 81 mg DAILY ARIES Administration Atorvastatin Calcium 80 mg 10/02/18 17:00 10/13/18 17:03 Lipitor* PO 80 mg 1700 ARIES Administration Balsalazide 1,500 mg 10/01/18 21:00 10/13/18 08:54 Colazal Cap(Nf) PO 1,500 mg BID ARIES Administration Protocol Calcium/Vitamin D 1 tab 10/02/18 09:00 10/13/18 08:55 Oscal D Tab 250/125* PO 1 tab DAILY ARIES Administration Docusate Sodium 100 mg 10/01/18 21:00 10/13/18 08:59 Colace Cap* PO Not Given BID ARIES Dofetilide 125 mcg 10/01/18 21:00 10/13/18 08:54 Tikosyn Cap* PO 125 mcg BID ARIES Administration Ferrous Sulfate 325 mg 10/02/18 09:00 10/13/18 08:55 Ferrous Sulfate Tab* PO 325 mg DAILY ARIES Administration Glipizide 10 mg 10/09/18 08:00 10/13/18 17:03 Glucotrol Tab* PO 10 mg 0800,1700 ARIES Administration Heparin Sodium (Porcine) 5,000 units 10/01/18 14:00 10/13/18 13:33 Heparin Vial(*) SUBCUT 5,000 units Q8HR ARIES Administration Insulin Human Lispro 0 units 10/01/18 16:30 10/13/18 16:25 Humalog* SUBCUT Not Given ACHS [facility] Protocol Levothyroxine Sodium 12.5 mcg 10/02/18 06:00 10/13/18 06:00 Synthroid Tab* PO 12.5 mcg DAILY@0600 ARIES Administration Loperamide HCl 2 mg 10/05/18 17:52 Imodium Cap* PO .SEE DIRECTIONS PRN DIARRHEA Lorazepam 0.5 mg 10/02/18 15:22 Ativan Tab(*) PO Q6H PRN AGITATION Magnesium Hydroxide 30 ml 10/01/18 12:42 Milk Of Magnesia Liq* PO Q6H PRN CONSTIPATION Metformin HCl 500 mg 10/02/18 17:00 10/13/18 17:03 Glucophage* PO 500 mg 0800,1700 ARIES Administration Pantoprazole Sodium 40 mg 10/02/18 09:00 10/13/18 08:54 Protonix Tab (Nf) PO 40 mg DAILY ARIES Administration Senna 2 tab 10/01/18 12:42 Senokot Tab* PO BEDTIME PRN CONSTIPATION Sertraline HCl 25 mg 10/07/18 09:00 10/13/18 08:54 Zoloft* PO 25 mg DAILY ARIES Administration Trimethobenzamide HCl 300 mg 10/05/18 17:56 10/08/18 05:42 Tigan Cap* PO 300 mg Q8H PRN Administration NAUSEA Trimethobenzamide HCl 200 mg 10/07/18 14:46 Tigan Im* IM Q8H PRN NAUSEA Vital Signs: Vital Signs Temp Pulse Resp BP Pulse Ox 97.3 F 80 18 151/50 99 10/13/18 17:17 10/13/18 16:20 10/13/18 16:20 10/13/18 16:20 10/13/18 17:10 Lab Results: Laboratory Results - last 24 hr 10/12/18 10/13/18 10/13/18 20:21 07:28 12:08 POC Glucose (mg/dL) 110 H 172 H 150 H Exam: HEENT: Head NC/AT, EOMI LUNGS: Clear HEART: regular rhythm ABDOMEN: Soft EXTREMITIES: peripheral pulses intact. Normal tone NEUROLOGIC: Rt homonymous hemianopsia, has trouble with visual field looking down. 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 ASA, will resume NOAC in 1 day 2. Diabetes: Metformin and glipizide, BS ok 3. Delirium: Ativan if needed 4. Atrial fibrillation: On Tikosyn; will resume NOAC tomorrow 5. Hypothyroid: Synthroid 6. DVT Prophylaxis: Heparin S/Q 7. Ulcerative Colitis: Colazol 8. Iron Deficiency Anemia: Iron Supplement 9. Advance Directives: Son is HCP. Has MOLST. DNR 10. N/V: Tigan. Can't have Zofran or Compazine with Tikosyn 11. UTI: Amox, day 01/1710/13/18 18:38 10/13/18 18:39
[2018-10-13] MEDS: Carvedilol TAB* 3.125 MG PO SCH (20:54)
[2018-10-14 05:06] LABS: Calcium 10.8 mg/dL (8.6-10.3); Potassium 4.2 mmol/L (3.5-5.0)
[2018-10-14 05:11] LABS: BUN/Creatinine Ratio 16.8 (8-20); EGFR African American 55.4 (>60); EGFR Non-African American 45.8 (>60)
[2018-10-14] MEDS: Acetaminophen TAB* 325 MG PO PRN ×2 (05:40→13:30)
[2018-10-14] MEDS: Levothyroxine TAB* 25 MCG TAB PO SCH (05:41)
[2018-10-14] MEDS: Apixaban* 2.5 MG TAB PO SCH ×2 (07:44→19:53)
[2018-10-14] MEDS: Insulin LISPRO* 1 UNITS UNIT SUBCUT SCH ×4 (08:08→22:35)
[2018-10-14] MEDS: Dofetilide CAP* 125 MCG PO SCH ×2 (08:09→19:52)
[2018-10-14] MEDS: Pantoprazole TAB * 40 MG TAB PO SCH (08:09)
[2018-10-14] MEDS: metFORMIN* 500 MG TAB PO SCH ×2 (08:09→17:33)
[2018-10-14] MEDS: Sertraline* 25 MG TAB PO SCH (08:09)
[2018-10-14] MEDS: glipiZIDE TAB* 5 MG PO SCH ×2 (08:09→17:32)
[2018-10-14] MEDS: Calcium/Vitamin D TAB 250/125* TAB PO SCH (08:09)
[2018-10-14] MEDS: Aspirin EC TAB* 81 MG TAB.EC PO SCH (08:09)
[2018-10-14] MEDS: Ferrous Sulfate TAB* 325 MG PO SCH (08:09)
[2018-10-14] MEDS: BALSALAZIDE SODIUM 750 MG PO SCH ×2 (08:10→19:53)
[2018-10-14] MEDS: Carvedilol TAB* 3.125 MG PO SCH (08:10)
[2018-10-14] MEDS: Docusate CAP* 100 MG PO SCH ×2 (09:25→19:16)
[2018-10-14] MEDS: Atorvastatin* 80 MG TAB PO SCH (17:32)
--- NOTE | 2018-10-14 20:00 | PN ---
Progress Note Date of Service: 10/14/18 Note: DANIEL PEARL was visited. Therapy notes read and reviewed. She has no complaints. She restarted her Coreg at a low dose and had a lot more balance difficulties. Started Eliquis. Will hold Coreg a few days Current Medications: Active Medications Generic Name Dose Route Start Last Admin Trade Name Freq PRN Reason Stop Dose Admin Acetaminophen 650 mg 10/01/18 12:42 10/14/18 13:30 Tylenol Tab* PO 650 mg Q6H PRN Administration FEVER/HEADACHE Acetaminophen 650 mg 10/07/18 17:02 10/07/18 18:09 Tylenol Supp* ID 650 mg Q6H PRN Administration HEADACHE/DISCOMFORT Apixaban 2.5 mg 10/14/18 09:00 10/14/18 19:53 Eliquis* PO 2.5 mg BID ARIES Administration Aspirin 81 mg 10/02/18 09:00 10/14/18 08:09 Aspirin Ec Tab* PO 81 mg DAILY ARIES Administration Atorvastatin Calcium 80 mg 10/02/18 17:00 10/14/18 17:32 Lipitor* PO 80 mg 1700 ARIES Administration Balsalazide 1,500 mg 10/01/18 21:00 10/14/18 19:53 Colazal Cap(Nf) PO 1,500 mg BID ARIES Administration Protocol Calcium/Vitamin D 1 tab 10/02/18 09:00 10/14/18 08:09 Oscal D Tab 250/125* PO 1 tab DAILY ARIES Administration Docusate Sodium 100 mg 10/01/18 21:00 10/14/18 19:16 Colace Cap* PO Not Given BID ARIES Dofetilide 125 mcg 10/01/18 21:00 10/14/18 19:52 Tikosyn Cap* PO 125 mcg BID ARIES Administration Ferrous Sulfate 325 mg 10/02/18 09:00 10/14/18 08:09 Ferrous Sulfate Tab* PO 325 mg DAILY ARIES Administration Glipizide 10 mg 10/09/18 08:00 10/14/18 17:32 Glucotrol Tab* PO 10 mg 0800,1700 ARIES Administration Insulin Human Lispro 0 units 10/01/18 16:30 10/14/18 16:34 Humalog* SUBCUT Not Given ACHS [facility] Protocol Levothyroxine Sodium 12.5 mcg 10/02/18 06:00 10/14/18 05:41 Synthroid Tab* PO 12.5 mcg DAILY@0600 ARIES Administration Loperamide HCl 2 mg 10/05/18 17:52 Imodium Cap* PO .SEE DIRECTIONS PRN DIARRHEA Lorazepam 0.5 mg 10/02/18 15:22 Ativan Tab(*) PO Q6H PRN AGITATION Magnesium Hydroxide 30 ml 10/01/18 12:42 Milk Of Magnesia Liq* PO Q6H PRN CONSTIPATION Metformin HCl 500 mg 10/02/18 17:00 10/14/18 17:33 Glucophage* PO 500 mg 0800,1700 ARIES Administration Pantoprazole Sodium 40 mg 10/02/18 09:00 10/14/18 08:09 Protonix Tab (Nf) PO 40 mg DAILY ARIES Administration Senna 2 tab 10/01/18 12:42 Senokot Tab* PO BEDTIME PRN CONSTIPATION Sertraline HCl 25 mg 10/07/18 09:00 10/14/18 08:09 Zoloft* PO 25 mg DAILY ARIES Administration Trimethobenzamide HCl 300 mg 10/05/18 17:56 10/08/18 05:42 Tigan Cap* PO 300 mg Q8H PRN Administration NAUSEA Trimethobenzamide HCl 200 mg 10/07/18 14:46 Tigan Im* IM Q8H PRN NAUSEA Vital Signs: Vital Signs Temp Pulse Resp BP Pulse Ox 97.5 F 67 18 157/57 97 10/14/18 17:58 10/14/18 17:58 10/14/18 17:58 10/14/18 17:58 10/14/18 17:58 Lab Results: Laboratory Results - last 24 hr 10/13/18 10/13/18 10/14/18 16:24 20:36 04:47 Sodium 136 Potassium 4.2 Chloride 102 Carbon Dioxide 25 Anion Gap 9 BUN 19 Creatinine 1.13 H Est GFR ( Amer) 55.4 Est GFR (Non-Af Amer) 45.8 BUN/Creatinine Ratio 16.8 Glucose 169 H POC Glucose (mg/dL) 109 H 123 H Calcium 10.8 H 10/14/18 10/14/18 10/14/18 07:31 12:11 16:32 Sodium Potassium Chloride Carbon Dioxide Anion Gap BUN Creatinine Est GFR ( Amer) Est GFR (Non-Af Amer) BUN/Creatinine Ratio Glucose POC Glucose (mg/dL) 171 H 124 H 130 H Calcium Exam: HEENT: Head NC/AT, EOMI LUNGS: Clear HEART: regular rhythm ABDOMEN: Soft EXTREMITIES: peripheral pulses intact. Normal tone NEUROLOGIC: Rt homonymous hemianopsia, has trouble with visual field looking down. Motor strength good Assessment/Plan: 1. 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 ASA, resumed NOAC 2. Diabetes: Metformin and glipizide, BS ok 3. Delirium: Ativan if needed 4. Atrial fibrillation: On Tikosyn; eliquis 5. Hypothyroid: Synthroid 6. DVT Prophylaxis: Heparin S/Q 7. Ulcerative Colitis: Colazol 8. Iron Deficiency Anemia: Iron Supplement 9. Advance Directives: Son is HCP. Has MOLST. DNR 10. N/V: Tigan. Can't have Zofran or Compazine with Tikosyn 10/14/18 20:00
[2018-10-15] MEDS: Levothyroxine TAB* 25 MCG TAB PO SCH (05:47)
[2018-10-15 06:08] VITALS: BP 152/70
[2018-10-15] MEDS: Acetaminophen TAB* 325 MG PO PRN (07:40)
[2018-10-15] MEDS: Ferrous Sulfate TAB* 325 MG PO SCH (07:47)
[2018-10-15] MEDS: Pantoprazole TAB * 40 MG TAB PO SCH (07:47)
[2018-10-15] MEDS: glipiZIDE TAB* 5 MG PO SCH (07:47)
[2018-10-15] MEDS: Dofetilide CAP* 125 MCG PO SCH (07:47)
[2018-10-15] MEDS: Apixaban* 2.5 MG TAB PO SCH (07:47)
[2018-10-15] MEDS: Sertraline* 25 MG TAB PO SCH (07:48)
[2018-10-15] MEDS: Calcium/Vitamin D TAB 250/125* TAB PO SCH (07:48)
[2018-10-15] MEDS: metFORMIN* 500 MG TAB PO SCH (07:48)
[2018-10-15] MEDS: Aspirin EC TAB* 81 MG TAB.EC PO SCH (07:48)
[2018-10-15] MEDS: BALSALAZIDE SODIUM 750 MG PO SCH (07:49)
[2018-10-15] MEDS: Docusate CAP* 100 MG PO SCH (07:55)
[2018-10-15] MEDS: Insulin LISPRO* 1 UNITS UNIT SUBCUT SCH ×2 (08:50→13:33)
[2018-10-15 13:46] LABS: ABS Basophils 0 10^3/ul (0-0.2); ABS Eosinophils 0.1 10^3/ul (0-0.6); ABS Lymphocytes 2.3 10^3/ul (1.0-4.8); ABS Monocytes 0.8 10^3/ul (0-0.8); ABS Nucleated RBC 0 10^3/ul; Eosinophil % 0.7 %; Hematocrit 34 % (35-47); Hemoglobin 11.4 g/dl (12.0-16.0); Mean Corpuscular HGB Conc 34 g/dl (31-36); Mean Corpuscular Hemoglobin 30 pg (27-31); Mean Corpuscular Volume 88 fL (80-97); Mean Platelet Volume 7.6 fL (7.4-10.4); Nucleated Red Blood Cells % 0.1; Platelet Count 260 10^3/ul (150-450); Red Blood Count 3.89 10^6/ul (4.00-5.40); Red Cell Distribution Width 18 % (10.5-15); White Blood Count 9.2 10^3/ul (3.5-10.8)
[2018-10-15 14:02] LABS: BUN/Creatinine Ratio 15.9 (8-20); EGFR Non-African American 45.8 (>60)
[2018-10-15 14:03] LABS: Albumin 3.9 g/dL (3.2-5.2); Albumin/Globulin Ratio 1.3 (1-3); Calcium 10.4 mg/dL (8.6-10.3); EGFR African American 55.4 (>60); Total Bilirubin 0.4 mg/dL (0.2-1.0); Total Protein 6.9 g/dL (6.4-8.9)
--- NOTE | 2018-10-15 21:20 | DS ---
DISCHARGE SUMMARY: DATE OF ADMISSION: 10/01/18 DATE OF DISCHARGE: 10/15/18 DISCHARGE DIAGNOSES: 1. 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 2. Diabetes mellitus. 3. Delirium. 4. Atrial fibrillation. 5. Hypothyroidism. 6. Urinary tract infection. 7. Ulcerative colitis. HISTORY OF ILLNESS AND HOSPITAL COURSE: For complete history of the events leading up to her rehab stay, please see the history and physical dictated by me on 10/01/17. While on the rehab unit, the patient had a lot of difficulty with visual problems and memory. She had a right homonymous hemianopsia as a result of her stroke. Her blood sugars improved after her oral medications were resumed. On 10/07/18, the patient was quite lethargic. She was given IV normal saline and she had a mild temperature elevation. Urinalysis was done, which showed a urinary tract infection. She was given 2 doses of IV ceftriaxone followed by 5 days of oral amoxicillin. The patient improved a great deal after the IV fluids. For the patient's atrial fibrillation, her anticoagulation was initially held, but it was resumed on the morning of . She was started on Eliquis. That same morning, she seemed to be having more difficulty with her balance. On the morning of 10/15/18, she had even greater difficulty with her balance and some speech problems. A stat CAT scan of her head was done, which showed hemorrhagic transformation of her stroke. Her Eliquis was immediately discontinued. Neurology and Neurosurgery were consulted. She was moved to the intensive care unit. Her aspirin was discontinued. DISCHARGE DIET: Per the hospitalist team. DISCHARGE MEDICATIONS: Per the hospitalist team. The patient was going to get a dose of IV and platelet transfusion. [id number]/[facility] #: [id number] MTDD
== END 2018-10-15 14:10 | disposition short-term general hospital (02) | DRG 56 ==
LOC: PMRU 11:34
PROVIDERS: ADMIT Physical Medicine & Rehabilitation; ATTEND Physical Medicine & Rehabilitation
PROC: F07Z5ZZ Bed Mobility Treatment (ICD-10-PCS; principal; 2018-10-01)
PROC: F07Z9ZZ Gait Training/Functional Ambulation Treatment (ICD-10-PCS; 2018-10-01)
PROC: F07Z8ZZ Transfer Training Treatment (ICD-10-PCS; 2018-10-01)
PROC: F08Z0ZZ Bathing/Showering Techniques Treatment (ICD-10-PCS; 2018-10-01)
PROC: F08Z1ZZ Dressing Techniques Treatment (ICD-10-PCS; 2018-10-01)
PROC: F08Z3ZZ Feeding/Eating Treatment (ICD-10-PCS; 2018-10-01)
PROC: F06ZBZZ Receptive/Expressive Language Treatment (ICD-10-PCS; 2018-10-01)
PROC: F06Z6ZZ Communicative/Cognitive Integration Skills Treatment (ICD-10-PCS; 2018-10-01)
DX: I69.398 Other sequelae of cerebral infarction (principal); I63.542 Cerebral infarction due to unspecified occlusion or stenosis of left cerebellar artery; I61.8 Other nontraumatic intracerebral hemorrhage; N39.0 Urinary tract infection, site not specified; K51.90 Ulcerative colitis, unspecified, without complications; H53.461 Homonymous bilateral field defects, right side; I48.91 Unspecified atrial fibrillation; I69.311 Memory deficit following cerebral infarction; I69.318 Other symptoms and signs involving cognitive functions following cerebral infarction; I25.10 Atherosclerotic heart disease of native coronary artery without angina pectoris; E11.9 Type 2 diabetes mellitus without complications; I95.1 Orthostatic hypotension; D50.9 Iron deficiency anemia, unspecified; E03.9 Hypothyroidism, unspecified; B95.2 Enterococcus as the cause of diseases classified elsewhere; R41.0 Disorientation, unspecified; G47.30 Sleep apnea, unspecified; K21.9 Gastro-esophageal reflux disease without esophagitis; Z95.2 Presence of prosthetic heart valve; Z79.84 Long term (current) use of oral hypoglycemic drugs; Z79.82 Long term (current) use of aspirin; Z79.4 Long term (current) use of insulin; Z79.899 Other long term (current) drug therapy; Z88.8 Allergy status to other drugs, medicaments and biological substances; I25.2 Old myocardial infarction
CPT/HCPCS: 36415; 70450; 80048; 80053; 81003; 81015; 85025; 86850; 86900; 86901; 87077; 87086; 87186; A9270-GY; G0515-GO; J0696; J1644; J3250

== ENCOUNTER 2018-10-15 14:23 | Inpatient (IN) | payer MEDICARE, BC ==
[2018-10-15] MEDS ORDERED: Acetaminophen TAB* 325 MG PO PRN (14:47)
[2018-10-15 15:27] LABS: INR 1.13 (0.77-1.02)
[2018-10-15] MEDS ORDERED: levETIRAcetam IV* 1,000 MG in NS 0.9% 100 ML* 100 ML IVPB ONE (16:00)
[2018-10-15] MEDS: NS 0.9% 1000 ML** 1,000 ML IV SCH (19:02)
--- NOTE | 2018-10-15 21:54 | CONS ---
CONSULTATION REPORT: DATE OF CONSULT: 10/15/18 PATIENT OF: Saranya Seymour, ELVIE, and Dr. Krishnamurthy. 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 She presented on 09/25/18 with headache and some slurred speech, and the initial CAT scan was normal; however, repeat CT scan showed new onset of stroke in the left occipital lobe, in the left posterior cerebral artery stroke distribution. A CTA showed left vertebral artery stenosis. She had a right field cut and was transferred to rehab on 10/01/18 for word finding problems, memory changes, and right field cut. She was started on Eliquis and she has received 3 doses with the last dose being early this morning. She had been maintained on aspirin throughout her hospitalization. Yesterday, she was felt to be somewhat more tired and confused. Today, she was clearly having more difficulty walking with an asymmetry to her gait that was not noticed before and she had some further word findings difficulties. A CT scan was obtained and showed a bleed. Of note, she had had a prior stroke in June [address] and was seen by Dr. Okeefe at that point and was thought to have posterior circulation stroke then. PAST MEDICAL HISTORY: She has a history of mitral valve bioprosthesis in 2011, coronary artery stenting 2014, pacemaker defibrillator placement 2014, ablation for atrial fibrillation, tonsillectomy, breast biopsy, hysterectomy, left bundle branch block, and ischemic cardiomyopathy. MEDICATIONS: She had been on: 1. Synthroid. 2. Humalog. 3. Lantus insulin. 4. Tikosyn. 5. Colazal. 6. Lipitor. 7. Aspirin and then the Eliquis have been at 2.5 twice a day and the aspirin dose had been 81 mg. 8. She is also on midodrine and Protonix. ALLERGIES: She is apparently allergic to PREDNISONE. SOCIAL HISTORY: She lived by herself prior to this hospitalization with 2 children living in the area. She is a nonsmoker, nondrinker. REVIEW OF SYSTEMS: Negative review of systems other than in the HPI in 14 spheres. PHYSICAL EXAM: Temperature 98.2, pulse 80, respirations 15, blood pressure 159/ 84. She is alert. She knows her name. She was confused as to where she was and she thought she was 83. She had some mild word finding difficulties. She had a trace right facial weakness. She had a mild right pronator drift, but strength in arm and leg was intact. [id number] was clumsy on the right side compared to the left, but this was mildly so. Chest: Irregular rate and rhythm. Abdomen: Soft with positive bowel sounds. DIAGNOSTIC STUDIES/LAB DATA: I reviewed both her CT scan from today and her prior CT scan. There is evidence for new bleeding in the area of her most recent stroke in the left occipital area. This is more than petechial hemorrhage, but there is no significant shift. Her labs include an INR of 1.13. CBC from today included hematocrit of 34, platelets of 260,000, white count of 9.2. Chemistry today was normal other than a creatinine of 1.13. IMPRESSION/PLAN: I discussed with Dr. Moody that she needed to be transferred to the ICU and that Neurosurgery needed to be contacted. We have discontinued her Eliquis and aspirin, and she is getting Kcentra and platelet transfusion. She will be having frequent neuro checks tonight and then a CT scan in the morning. Even though this is unlikely to precipitate seizures, it is still a consideration, and after discussing with Dr. Krishnamurthy, we are loading her with Keppra 1000 mg now and then 500 twice a day. Thank you for sharing her case. [id number]/[facility] #: [id number] AMINA
[2018-10-15 22:56] LABS: Mean Platelet Volume 7.6 fL (7.4-10.4); Platelet Count 261 10^3/ul (150-450)
[2018-10-15 23:41] LABS: Urine Appearance Clear; Urine Bilirubin Negative (Negative); Urine Blood Negative (Negative); Urine Color Yellow; Urine Glucose 1+(50 mg/dL) (Negative); Urine Ketones Negative (Negative); Urine Nitrite Negative (Negative); Urine Protein Negative (Negative); Urine Urobilinogen Negative (Negative)
[2018-10-15] MEDS ORDERED: Magnesium Hydroxide LIQ* 30 ML UDC PO PRN (23:47)
[2018-10-15] MEDS ORDERED: Trimethobenzamide IM* 100 MG/ML 2 ml VIAL IM PRN (23:47)
[2018-10-15] MEDS ORDERED: Senna TAB PO PRN (23:47)
[2018-10-15] MEDS ORDERED: Trimethobenzamide CAP* 300 MG PO PRN (23:47)
[2018-10-15] MEDS ORDERED: Dextrose 50% Syringe 50 ML* 25 GM/50 ML SYRINGE IV PUSH PRN (23:49)
[2018-10-16] MEDS: Insulin LISPRO* 1 UNITS UNIT SUBCUT SCH ×5 (00:53→23:39)
[2018-10-16] MEDS ORDERED: levETIRAcetam IV* 1,000 MG in NS 0.9% 100 ML* 100 ML IVPB SCH (04:00)
[2018-10-16 04:31] LABS: ABS Basophils 0 10^3/ul (0-0.2); ABS Eosinophils 0.1 10^3/ul (0-0.6); ABS Monocytes 0.7 10^3/ul (0-0.8); ABS Neutrophils 5.6 10^3/ul (1.5-7.7); ABS Nucleated RBC 0 10^3/ul; Eosinophil % 0.9 %; Hematocrit 31 % (35-47); Hemoglobin 10.3 g/dl (12.0-16.0); Lymphocyte % 23.9 %; Mean Corpuscular HGB Conc 34 g/dl (31-36); Mean Corpuscular Hemoglobin 30 pg (27-31); Mean Corpuscular Volume 88 fL (80-97); Mean Platelet Volume 7.6 fL (7.4-10.4); Nucleated Red Blood Cells % 0; Platelet Count 257 10^3/ul (150-450); Red Blood Count 3.49 10^6/ul (4.00-5.40); Red Cell Distribution Width 18 % (10.5-15); White Blood Count 8.4 10^3/ul (3.5-10.8)
[2018-10-16] MEDS: levETIRAcetam 500 MG IVPREMIX* 500 MG/100 ML BAG IV SCH ×2 (04:33→15:31)
[2018-10-16 04:35] LABS: INR 1.02 (0.77-1.02)
[2018-10-16 04:46] LABS: BUN/Creatinine Ratio 14.6 (8-20); Calcium 10.1 mg/dL (8.6-10.3); EGFR African American 61.6 (>60); EGFR Non-African American 50.9 (>60); Potassium 3.9 mmol/L (3.5-5.0)
--- NOTE | 2018-10-16 04:54 | HP ---
CC: Dr. Lubin; Dr. Krishnamurthy * HISTORY AND PHYSICAL: DATE OF ADMISSION: 10/15/18 PROVIDER: Saranya Seymour NP PRIMARY CARE PROVIDER: Dr. Vanessa Gómez, Dr. Morse. ATTENDING PHYSICIAN WHILE IN THE HOSPITAL: Dr. Vilma Ely * (dictated by Saranya Seymour NP). CHIEF COMPLAINT: Change in mental status. HISTORY OF PRESENT ILLNESS: Ms. Anderson is an 83-year-old female with a past medical history of coronary artery disease with stenting in 2014, pacemaker defibrillator placed in 2014, history of atrial fibrillation with ablation, mitral valve bioprosthesis in 2011, ischemic cardiomyopathy, who was currently in [facility] and had a change in mental status, so they got a CAT scan of her head, which showed a hemorrhagic stroke. The patient was initially admitted on with complaints of headache and slurred speech. She had initial CAT scan that was normal; however, repeat CAT scan showed new onset of a stroke in the left occipital lobe. The CTA showed left vertebral artery stenosis. The patient was transferred to [facility] rehab on 10/01/18 due to symptoms as a result of her stroke, memory changes, trouble with word finding, and difficulty with right eye vision. Her initial consultation by Neurology had recommended holding anticoagulation therapy for 2 weeks and then changing from Xarelto to Eliquis. The patient was started on Eliquis yesterday and had received a total of 3 doses, last dose being at 7:30 this morning. The patient has been maintained on aspirin throughout the hospitalization yesterday at [facility]. It was felt that she was more tired and confused today. The patient was clearly having more difficulty with walking and having further difficulty with word finding. A CAT scan of her head was obtained, which showed a bleed. Due to the bleeding on the CAT scan, we were asked to see and admit her to the hospital. PAST MEDICAL HISTORY: Significant for: 1. Atrial fibrillation. 2. Diabetes. 3. Thyroid disorder. 4. Anemia. 5. Pacemaker defibrillator. 6. Coronary artery disease, history of an DC x1. 7. Hypertension. 8. Hyperlipidemia. 9. Mitral valve replacement. 10. Ablation for atrial fibrillation x2. 11. Asthma. 13. History of sleep apnea, with CPAP. PAST SURGICAL HISTORY: 1. Mitral valve replacement with porcine valve. 2. Breast surgery. 3. Tonsillectomy. 4. Hysterectomy. 5. Ablation for atrial fibrillation. 6. History of cardioversion. HOME MEDICATIONS: 1. Levothyroxine 12.5 mcg p.o. daily. 2. Zoloft 25 mg p.o. daily. 3. Senna 2 tabs p.o. at bedtime. 4. Metformin 500 mg p.o. b.i.d. 5. Pantoprazole 40 mg p.o. daily. 6. Milk of magnesia 30 mL q.6 hours as needed for constipation. 7. Imodium 2 mg p.o. b.i.d. as needed for diarrhea. 8. Ativan 0.5 mg p.o. q.6 hours as needed for anxiety. 9. Tigan 300 mg p.o. q.8 hours as needed for nausea. 10. Humalog sliding scale a.c. and h.s. 11. Glipizide 10 mg p.o. b.i.d. 12. Ferrous sulfate 325 mg p.o. daily. 13. Tikosyn 125 mcg p.o. b.i.d. 14. Colace 100 mg p.o. b.i.d. 15. Calcium with vitamin D one tablet p.o. daily. 16. Colazal 1500 mg p.o. b.i.d. 17. Atorvastatin 80 mg p.o. daily. 18. Aspirin 81 mg p.o. daily. 19. Eliquis 2.5 mg p.o. b.i.d. 20. Acetaminophen 650 mg p.o. q.6 hours as needed. ALLERGIES TO MEDICATIONS: Allergy to PREDNISONE. FAMILY HISTORY: Mother with a history of diabetes. Father with a history of atrial fibrillation. SOCIAL HISTORY: The patient denies any tobacco use. Reports smoked socially as teenager. The patient denies any illicit drug use or alcohol use. The patient is currently residing at [facility]. Surrogate decision maker in the event she is unable to make her own decisions is her son. She is a DNR/DNI. REVIEW OF SYSTEMS: There has been no documented fever. No significant weight change. No double vision. No ear discharge. No rhinorrhea. No sore throat. No thyroid enlargement. No chest pain. No orthopnea. No nocturnal dyspnea. There was no abdominal pain. No nausea, vomiting, or diarrhea. No urinary frequency or urgency. No seizures or loss of consciousness. The patient did have increased fatigue and trouble with word finding. Review of 14 systems was completed; all others were negative. PHYSICAL EXAMINATION GENERAL: At this time, the patient is confused, lying on the stretcher in the ICU. She does not appear to be in any acute distress. VITAL SIGNS: Temperature was 98.2, heart rate 78, respirations 14, blood pressure 156/83, O2 saturation was 97% on room air. HEENT: Head is atraumatic, normocephalic. Eyes: EOMs are intact. Sclerae anicteric and not pale. Oral mucosa appeared to be moist. No oropharyngeal erythema. NECK: Supple. LUNGS: Clear to auscultation bilaterally. No wheezes, rales, or rhonchi. CARDIAC: S1, S2. Regular rate and rhythm. ABDOMEN: Soft and nontender. Bowel sounds are present x4. EXTREMITIES: Pulses are +2 bilaterally. She is able to move all 4 extremities with 5/5 strength. NEUROLOGIC: She is awake. She is confused to place and time. Handgrips are equal. Speech is clear. She does have right pronator drift. The patient does have difficulty with [id number] on the right when compared to the left but is mild. Bilateral lower extremity strength is intact. SKIN: Intact. DIAGNOSTIC STUDIES/LAB DATA: WBCs are 9.2, RBCs 3.89, hemoglobin 11.4, hematocrit was 34, platelet count was 261. INR was 1.13. Sodium 136, potassium 4.0, chloride 102, carbon dioxide was 27, anion gap was 7, creatinine 1.13, glucose was 118, calcium 10.4. ASTs were 26, ALTs were 11. Albumin was 3.9. Urine was yellow; clear; pH was 6.0; specific gravity of 1.010; urine protein, ketones, blood, nitrites, bilirubin, urobilinogen, and leukocyte esterase were all negative; urine glucose was 1+. CT of the brain, radiologist's impression: There has been interval hemorrhagic conversion of the left SECURITY OFFICER territory infarct without shift. ASSESSMENT AND PLAN: Ms. Anderson is an 83-year-old female, who was transferred from [facility] to ICU due to hemorrhagic stroke. She will be admitted inpatient for: 1. Hemorrhagic stroke. At this point, I will stop her Eliquis and hold her aspirin. She will be given Kcentra IV and 1 unit of platelets. She will have neuro checks q.2 hours. She will have a repeat CT of the brain in the a.m. I have consulted Dr. Lubin from Neurology and Dr. Krishnamurthy from Neurosurgery, who have recommended the Kcentra and 1 unit of platelets. The patient will also be given Keppra 1000 mg IV as per Neurology's recommendation. 2. Diabetes. I will place her on Accu-Cheks a.c. 3. Hypertension. We will continue to monitor. 4. Atrial fibrillation. She will continue on Tikosyn 125 mcg p.o. b.i.d. We will hold Eliquis and aspirin at this time. 5. Depression. She will continue on sertraline 25 mg p.o. daily. 6. Hypothyroid. She will continue on 12.5 mcg of levothyroxine p.o. daily. 7. DVT prophylaxis. She will have SCDs. Chemical DVT prophylaxis is contraindicated as the patient does have a hemorrhagic stroke at this time. 8. Code status. She is a DNR/DNI. 9. Fluid, electrolytes, and nutrition. She can have a heart healthy, consistent carb diet. TIME SPENT: Time spent on this admission was 60 minutes, greater than half that time was spent [id number] with the patient and her family obtaining my history and physical, the other half time was spent going over the plan of care and implementing my plan of care. I have discussed this with my attending, Dr. Vilma Ely; she is in agreement with my plan. SARANYA SEYMOUR, BATCH AND FURNACE OPERATOR [id number]/[facility] #: [id number] AMINA
[2018-10-16] MEDS: Levothyroxine TAB* 25 MCG TAB PO SCH (06:21)
[2018-10-16] MEDS: Docusate CAP* 100 MG PO SCH ×2 (09:11→20:27)
[2018-10-16] MEDS: Sertraline* 25 MG TAB PO SCH (09:11)
[2018-10-16] MEDS: Pantoprazole TAB * 40 MG TAB PO SCH (09:11)
[2018-10-16] MEDS: BALSALAZIDE SODIUM 750 MG PO SCH ×2 (09:12→20:26)
[2018-10-16] MEDS: Dofetilide CAP* 125 MCG PO SCH ×2 (09:12→20:27)
--- NOTE | 2018-10-16 09:47 | CONS ---
CONSULTATION NOTE: DATE OF CONSULT: 10/16/18 HISTORY OF PRESENT ILLNESS: The patient is a very pleasant 83-year-old female who presented on 09/25/18 with complaints of headache and speech difficulties. The patient was diagnosed with a left PHOTOSTATIC COPY MAKER stroke with left vertebral artery stenosis. The patient was transferred to rehab on 10/01/18 and initially was started on Eliquis. After 3 doses, the patient had started to have changes in her mental status and CT scan of the brain revealed hemorrhagic conversion of the left PHOTOSTATIC COPY MAKER stroke. Requested to see the patient by Dr. Moody because of progressive findings. The patient . PAST MEDICAL HISTORY: Mitral valve surgery, coronary artery stenting, fibrillator ablation, tonsillectomy, breast biopsy, hysterectomy, ischemic cardiomyopathy, left bundle branch block. MEDICATIONS: The patient was on: 1. Synthroid. 2. Humalog. 3. Lantus. 4. Tikosyn. 5. Colazal. 6. Lipitor. 7. Aspirin 81 mg. 8. Eliquis 2.5 b.i.d. 9. Protonix. ALLERGIES: The patient is allergic to PREDNISONE. SOCIAL HISTORY: Tobacco negative, alcohol negative, recreational use negative. The patient was living independently prior to the onset of stroke. According to her [id number]-avo, patient had previous several episodes of CVA. PHYSICAL EXAM: The patient is in no acute distress. She is awake and alert. She is oriented x3. Her pupils are equal and reactive. Cranial nerves II through XII are grossly intact with the exception of visual field deficit. Motor 4/5 to 5/5 in all extremities with mild right pronator drift. Sensory grossly intact to light touch. Deep tendon reflexes +1 bilaterally. No clonus , no Babinski. Sullivan is negative. DIAGNOSTIC STUDIES: The patient had a CT of the brain revealing hemorrhagic conversion of a left PHOTOSTATIC COPY MAKER stroke without evidence of hydrocephalus or mass effect. ASSESSMENT: The patient is a very pleasant 83-year-old female, who has hemorrhagic conversion of the left posterior cerebral artery stroke. PLAN: The patient was admitted to the ICU. We recommend close monitoring of vital signs, neuro checks, and monitoring hypertension. The patient will receive some platelets as well as Kcentra. Also, hematology consultation will be considered and a repeat CT scan of the brain was also felt warranted. Discussed . Discussed with the patient's [id number] who is a volunteer here in the hospital. It is clear that the family wishes were to avoid aggressive treatment. Family would like to avoid surgical intervention or placement of if it is needed, while they will discuss regarding the patient's code status. Final decision will be made by her proxy who is the patient's son, who was not available with her at that time. The patient's family was offered the option of . Thank you very much for allowing us to participate in the case of this patient. Please do not hesitate to contact our office in case you have any further questions or concerns regarding the care of this patient. [id number]/[facility] #: [id number] AMINA
--- NOTE | 2018-10-16 10:13 | PN ---
Subjective Date of Service: 10/16/18 Interval History: HOSPITALIST PROGRESS NOTE Patient seen and examined at bedside. Care reviewed and d/d Mali Kruse RN. She feels well today. Denies pain, offers no complaints. Speech is slow and takes awhile to answer, but making sense. Family History: Unchanged from Admission Social History: Unchanged from Admission Past Medical History: Unchanged from Admission Objective Active Medications: Acetaminophen (Tylenol Tab*) 650 mg PO Q6H PRN PRN Reason: FEVER/HEADACHE Atorvastatin Calcium (Lipitor*) 80 mg PO DAILY@1700 [facility] Balsalazide (Colazal Cap(Nf)) 1,500 mg PO BID [facility]; Protocol Last Admin: 10/16/18 09:12 Dose: Not Given Dextrose (D50w Syringe 50 Ml*) 12.5 gm IV PUSH .FOR FS < 60 - SS PRN PRN Reason: FS < 60 Docusate Sodium (Colace Cap*) 100 mg PO BID [facility] Last Admin: 10/16/18 09:11 Dose: 100 mg Dofetilide (Tikosyn Cap*) 125 mcg PO BID [facility] Last Admin: 10/16/18 09:12 Dose: 125 mcg Sodium Chloride (Ns 0.9% 1000 Ml) 1,000 mls @ 75 mls/hr IV PER RATE [facility] Last Admin: 10/15/18 19:02 Dose: 75 mls/hr Levetiracetam (Keppra Iv Premix*) 500 mg in 100 mls @ 400 mls/hr IV Q12H [facility] Last Admin: 10/16/18 04:33 Dose: 400 mls/hr Insulin Human Lispro (Humalog*) 0 units SUBCUT Q6HR [facility]; Protocol Last Admin: 10/16/18 06:21 Dose: 1 unit Levothyroxine Sodium (Synthroid Tab*) 12.5 mcg PO DAILY@0600 [facility] Last Admin: 10/16/18 06:21 Dose: Not Given Magnesium Hydroxide (Milk Of Magnesia Liq*) 30 ml PO Q6H PRN PRN Reason: CONSTIPATION Pantoprazole Sodium (Protonix Tab*) 40 mg PO DAILY [facility] Last Admin: 10/16/18 09:11 Dose: 40 mg Senna (Senokot Tab*) 2 tab PO BEDTIME PRN PRN Reason: CONSTIPATION Sertraline HCl (Zoloft*) 25 mg PO DAILY [facility] Last Admin: 10/16/18 09:11 Dose: 25 mg Trimethobenzamide HCl (Tigan Cap*) 300 mg PO Q8H PRN PRN Reason: NAUSEA Trimethobenzamide HCl (Tigan Im*) 200 mg IM Q8HR PRN PRN Reason: NAUSEA Vital Signs - 8 hr 10/16/18 10/16/18 10/16/18 03:00 04:00 04:08 Temperature 99.3 F 49.8 F Pulse Rate 70 66 Respiratory 15 16 Rate Blood Pressure 138/66 (mmHg) O2 Sat by Pulse 92 97 Oximetry 10/16/18 10/16/18 10/16/18 05:00 05:10 06:00 Temperature 98.6 F 98.4 F 98.6 F Pulse Rate 81 74 86 Respiratory 19 13 17 Rate Blood Pressure 145/84 138/81 (mmHg) O2 Sat by Pulse 96 97 95 Oximetry 10/16/18 10/16/18 10/16/18 07:00 08:00 09:00 Temperature 98.6 F 98.8 F 98.8 F Pulse Rate 79 72 68 Respiratory 15 23 14 Rate Blood Pressure 156/72 159/67 148/68 (mmHg) O2 Sat by Pulse 96 92 97 Oximetry 10/16/18 10/16/18 10/16/18 09:59 10:00 10:02 Temperature 99.1 F 99.1 F 99.1 F Pulse Rate 79 80 75 Respiratory 16 19 20 Rate Blood Pressure 149/57 129/62 (mmHg) O2 Sat by Pulse 95 93 93 Oximetry Oxygen Devices in Use Now: None Appearance: Elderly lady lying in bed in NAD. Eyes: No Scleral Icterus Ears/Nose/Mouth/Throat: Mucous Membranes Moist Neck: Trachea Midline Respiratory: Symmetrical Chest Expansion and Respiratory Effort, Clear to Auscultation Cardiovascular: RRR - Normal S1 and S2 Abdominal: NL Sounds; No Tenderness; No Distention Neurological: - - AAOx2 (self and place), speech is clear but slow and she takes a long time to answer, mild right hemiparesis arm>leg Nutrition: Taking PO's Result Diagrams: 10/16/18 04:15 10/16/18 04:15 Assess/Plan/Problems-Billing Assessment: Mrs Anderson is an 83yo F with PMH of Afib s/p ablation x2, type 2 DM, hypothyroidism, anemia, s/p pacemaker/ICD, CAD, HTN, HLD, s/p MVR, asthma, FRANCES on CPAP, ulcerative colitis, recent admission 10/03 with left posterior circulation ischemic CVA, now complicated with hemorrhagic transformation. - Patient Problems (1) Hemorrhagic cerebrovascular accident (CVA) Comment: - Ischemic CVA earlier this month, now with hemorrhagic conversion in the setting of Aspirin and Eliquis use. - S/p KCentra and platelet transfusion. - F/u CT brain shows bleeding is stable, despite some mental status fluctuation. - Neurosurgery input appreciated - recommended monitoring in ICU for 72h as this is the average time for clot stabilization. Continue seizure prophylaxis with Keppra. Goal SBP 140-160. - Continue neuro checks. (2) Atrial fibrillation Comment: - Continue dofetilide. - Off Aspirin and Eliquis in the setting of hemorrhagic CVA. (3) HTN (hypertension) Comment: - Goal SBP 140-160 - continue to monitor. (4) Diabetes Comment: - Controlled - continue Lispro sliding scale. (5) Depression Comment: - Continue sertraline. (6) Hypothyroid Comment: - Continue levothyroxine. (7) DVT prophylaxis Comment: - Pharmacological prophylaxis contraindicated in the setting of hemorrhagic CVA. - SCDs only. (8) DNR (do not resuscitate) Status and Disposition: Inpatient.
[2018-10-16] MEDS: NS 0.9% 1000 ML** 1,000 ML IV SCH (11:48)
--- NOTE | 2018-10-16 13:44 | PN ---
NEUROLOGICAL FOLLOWUP: DATE OF VISIT: 10/16/18 HISTORY: This is an 83-year-old woman who has had a hemorrhagic conversion in a left occipital stroke. She has no headache and has no complaints. This morning there has been some fluctuation in her status. There has been a little bit of pronator drift and she could not remember her date, so repeat CT scan was just done within the past hour and she had a CT scan earlier today. She has received her platelets and Kcentra. There are no other complaints. MEDICATIONS: Medication include 1. Lipitor 80 mg daily. 2. Colazal 1500 mg b.i.d. 3. Tikosyn 125 b.i.d. 4. Humalog. 5. Keppra 500 b.i.d. 6. Synthroid 12.5 mg daily. 7. Protonix 40 mg daily. 8. Senokot p.r.n. constipation. 9. Zoloft 25 mg daily. 10. Tigan 300 p.r.n. nausea. PHYSICAL EXAMINATION: Temperature 99.1, pulse 74, respiration 20, blood pressure 129/62. She was alert. She knew her name. She did not know her birthday. She spoke briefly. Speech was unchanged from yesterday. She still has a slight right facial palsy. She had a slight pronator drift today, but less so than yesterday for me. 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 Chest: Clear. Cardiovascular: Regular rate and rhythm. Abdomen: Soft with positive bowel sounds. DIAGNOSTIC AND LABORATORY DATA: I reviewed her CT scan as from 09:30 as well as 6 o'clock and compared it to the prior scan. There was no significant mass effect. No midline shift. No substantial change in hemorrhage size. To my eye , there may have been a minimal change, but nothing significantly. It is read unchanged by the radiologist effect. There is no meaningful change here. Her CBC was normal other than a hematocrit of 31. INR 1.02, glucose 144, creatinine 1.03. BMP otherwise normal. IMPRESSION/PLAN: I spoke with the family and the nurse. Sonal has been clinically stable since yesterday with a CT scan that is unchanged. I discussed with the family that, at this acute point, we are looking for interval changes and would expect from fluctuations in her symptoms, but at this point since she is stabilizing, this has been good so far and this is an encouraging sign, although it is too soon to be sure that there would not be progression of bleeding. Dr. Cheng is on this weekend. I have signed her case out to him for followup. She should be having a CT scan tomorrow and she should continue on the Keppra as is. Thank you for sharing her case. [id number]/[facility] #: [id number] AMINA
--- NOTE | 2018-10-16 14:43 | PN ---
Progress Note - Progress Note Date of Service: 10/16/18 SOAP: Subjective: []No events ON. In ICU. Objective: []VSS AAOx2, AJ, CN II-XII grossly intact, vision difficult to assess because of poor cooperation. Motor: Pramod well Sensor grossly intact to light touch. 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
[2018-10-16] MEDS: Atorvastatin* 80 MG TAB PO SCH (16:48)
[2018-10-17] MEDS: levETIRAcetam 500 MG IVPREMIX* 500 MG/100 ML BAG IV SCH ×2 (03:29→17:11)
[2018-10-17] MEDS: Acetaminophen TAB* 325 MG PO PRN (03:37)
[2018-10-17] MEDS ORDERED: hydrALAZINE IV* 20 MG/ML VIAL IV SLOW PU PRN (03:41)
[2018-10-17] MEDS: Insulin LISPRO* 1 UNITS UNIT SUBCUT SCH ×4 (05:37→23:49)
[2018-10-17] MEDS: Dofetilide CAP* 125 MCG PO SCH ×2 (09:17→20:14)
[2018-10-17] MEDS: Levothyroxine TAB* 25 MCG TAB PO SCH (09:17)
[2018-10-17] MEDS: Sertraline* 25 MG TAB PO SCH (09:17)
[2018-10-17] MEDS: Pantoprazole TAB * 40 MG TAB PO SCH (09:17)
[2018-10-17] MEDS: Docusate CAP* 100 MG PO SCH ×2 (09:18→20:17)
[2018-10-17] MEDS: BALSALAZIDE SODIUM 750 MG PO SCH ×2 (09:25→20:14)
--- NOTE | 2018-10-17 11:04 | PN ---
Progress Note - Progress Note Date of Service: 10/17/18 SOAP: Subjective: [Pt denies headache, nausea Unable to provide much history Answers some questions ] Objective: [ Vital Signs: Temp Pulse Resp BP Pulse Ox 98.4 F 73 16 156/105 95 10/17/18 08:00 10/17/18 08:00 10/17/18 09:00 10/17/18 08:00 10/17/18 08:00 General: Sitting up in chair, drowsy Neuro: Moves all extremities, sensation intact. Oriented to person only. Speech is clear. No facial droop. CN II-XII intact. PERRL. 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 Follow up CT in AM 2. Continue neuro checks]
--- NOTE | 2018-10-17 15:06 | CONS ---
NEUROLOGY FOLLOWUP CONSULTATION: DATE OF CONSULT: 10/17/18 HOSPITALIST: Dr. Ely LOCATION: She is an inpatient ICU bed 9. CHIEF COMPLAINT: Left posterior cerebral artery hemorrhagic infarction. HISTORY OF PRESENT ILLNESS: Since yesterday, Sonal apparently is about the same. I spoke with her nu rse, Courtney, who said that she is able to be aroused, but she falls back to sleep pretty quickly. She was able to eat something earlier today. She has to be frequently cued to stay awake to finish eati ng. Sonal when asked to say how is her headache thinks for a few minutes and then says "yes" and then drifts off to sleep again. She otherwise states she feels well. MEDICATIONS: Reviewed and she is on, 1. Lipitor 80 mg p.o. daily. 2. Balsalazide 1500 mg p.o. b.i.d. 3. Colace 100 mg p.o. b.i.d. 4. Tikosyn 125 mcg p.o. b.i.d. 5. Hydralazine 5 mg IV q.6 hours p.r.n., systolic blood pressure over 150. 6. Insulin sliding scale. 7. Keppra 500 mg IV q.12 hours. 8. Levothyroxine 12.5 mg p.o. daily. 9. Protonix 40 mg p.o. daily. 10. Senna. 11. Sertraline 25 mg p.o. daily. 12. Tigan 300 mg p.o. q.8 hours p.r.n. nausea. PHYSICAL EXAMINATION: Most recent vital signs temperature 98.4 by Cortés, blood pressure 156/105, hea rt rate in the 70s, respiratory rate is 12, and oxygen saturation is 95% on room air. Heart is in a regular rhythm to my auscultation. I do not have any murmurs. Neck is supple. There are no cervica l bruits. Skin is warm and dry. Neurological Exam: She is very drowsy, but I can wake her up with reasonably loud voice. She says "hello" and initially says she is fine when asked how she is doing t li. She is very drowsy and if the conversation is not maintained, she closes her eyes and goes radhika k to sleep again. The pupils are reactive about 3 down to 2.5 mm to bright light. Eye movements are not sustained very well, but she has a pretty gaze to her right. I can get her to respond to visual threat from the right side, but I cannot get her to count fingers either. The patient's musculature looks symmetric. Nasal tickle response is present bilaterally, but a low brisker on the right than t he left. I do not see any facial asymmetry. She does international nurse to command with both hands pretty strongl y. DIAGNOSTIC STUDIES/LABORATORY DATA: Laboratory data notable for a stable CBC yesterday, stable chemi stry profile, no blood test this morning. No blood test this morning. Last CT scan of the brain was reviewed as well as her older CT scans. It was from yesterday. It was some yesterday and reveals a hemorrhagic infarction in the left occipital distribution. IMPRESSION AND PLAN: Impression is hemorrhagic transformation of a cerebral infarction. She was off anticoagulation when she first presented and then put back it appropriately while in rehab. Current ly, the only drug which she is on is antiplatelet effect are sertraline and atorvastatin. I would st op the sertraline for now as it is only 25 mg since she is very somnolent and I doubt it is having an y significant benefit. She was loaded with Keppra when she deteriorated and was transferred to the [facility], but she has not had any seizures. I would maybe continue that for about 7 days altogether and t hen taper her off of it, perhaps after checking another EEG. It can sometimes be a quite sedating in the elderly. I will continue to follow along with you. [id number]/[facility] #: [id number]
--- NOTE | 2018-10-17 15:43 | PN ---
Subjective Date of Service: 10/17/18 Interval History: Awake and alert at time of exam this am.Waxes and wanes Family History: Unchanged from Admission Social History: Unchanged from Admission Past Medical History: Unchanged from Admission Objective Active Medications: Acetaminophen (Tylenol Tab*) 650 mg PO Q6H PRN PRN Reason: FEVER/HEADACHE Last Admin: 10/17/18 03:37 Dose: 325 mg Amlodipine Besylate (Norvasc Tab*) 5 mg PO DAILY [facility] Atorvastatin Calcium (Lipitor*) 80 mg PO DAILY@1700 [facility] Last Admin: 10/16/18 16:48 Dose: 80 mg Balsalazide (Colazal Cap(Nf)) 1,500 mg PO BID [facility]; Protocol Last Admin: 10/17/18 09:25 Dose: 1,500 mg Dextrose (D50w Syringe 50 Ml*) 12.5 gm IV PUSH .FOR FS < 60 - SS PRN PRN Reason: FS < 60 Docusate Sodium (Colace Cap*) 100 mg PO BID [facility] Last Admin: 10/17/18 09:18 Dose: Not Given Dofetilide (Tikosyn Cap*) 125 mcg PO BID [facility] Last Admin: 10/17/18 09:17 Dose: 125 mcg Hydralazine HCl (Apresoline Iv*) 5 mg IV SLOW PU Q6H PRN PRN Reason: HTN Last Admin: 10/17/18 03:48 Dose: 5 mg Levetiracetam (Keppra Iv Premix*) 500 mg in 100 mls @ 400 mls/hr IV Q12H [facility] Last Admin: 10/17/18 03:29 Dose: 400 mls/hr Insulin Human Lispro (Humalog*) 0 units SUBCUT Q6HR [facility]; Protocol Last Admin: 10/17/18 12:08 Dose: 2 unit Levothyroxine Sodium (Synthroid Tab*) 12.5 mcg PO DAILY@0600 [facility] Last Admin: 10/17/18 09:17 Dose: 12.5 mcg Magnesium Hydroxide (Milk Of Magnesia Liq*) 30 ml PO Q6H PRN PRN Reason: CONSTIPATION Pantoprazole Sodium (Protonix Tab*) 40 mg PO DAILY [facility] Last Admin: 10/17/18 09:17 Dose: 40 mg Senna (Senokot Tab*) 2 tab PO BEDTIME PRN PRN Reason: CONSTIPATION Trimethobenzamide HCl (Tigan Cap*) 300 mg PO Q8H PRN PRN Reason: NAUSEA Trimethobenzamide HCl (Tigan Im*) 200 mg IM Q8HR PRN PRN Reason: NAUSEA Vital Signs - 8 hr 10/17/18 10/17/18 10/17/18 08:00 09:00 09:51 Temperature 98.4 F 99.0 F Pulse Rate 73 75 Respiratory 12 16 18 Rate Blood Pressure 156/105 158/55 (mmHg) O2 Sat by Pulse 95 95 Oximetry 10/17/18 10/17/18 10/17/18 10:00 10:01 11:00 Temperature 99.0 F 99.0 F 98.8 F Pulse Rate 76 75 109 Respiratory 15 15 20 Rate Blood Pressure 145/77 (mmHg) O2 Sat by Pulse 95 96 95 Oximetry 10/17/18 10/17/18 10/17/18 11:01 12:00 13:00 Temperature 98.8 F 98.8 F 98.8 F Pulse Rate 86 72 79 Respiratory 18 16 17 Rate Blood Pressure 136/64 153/62 163/104 (mmHg) O2 Sat by Pulse 96 94 95 Oximetry 10/17/18 10/17/18 14:00 14:01 Temperature 98.8 F 98.8 F Pulse Rate 70 71 Respiratory 17 17 Rate Blood Pressure 137/70 (mmHg) O2 Sat by Pulse 93 93 Oximetry Oxygen Devices in Use Now: None Eyes: No Scleral Icterus Ears/Nose/Mouth/Throat: NL Teeth, Lips, Gums Neck: NL Appearance and Movements; NL JVP Respiratory: Symmetrical Chest Expansion and Respiratory Effort Cardiovascular: NL Sounds; No Murmurs; No JVD, - - Irregularly irregular Abdominal: NL Sounds; No Tenderness; No Distention Extremities: No Edema Neurological: Alert and Oriented x 3, - - awake during exam.able to move all 4 extremities.Strength not tested Result Diagrams: 10/16/18 04:15 10/16/18 04:15 Microbiology and Other Data: Microbiology 10/15/18 15:12 Nasal Screen MRSA (PCR) - Final Nasal Mrsa Not Detected Assess/Plan/Problems-Billing Assessment: Mrs Anderson is an 83yo F with PMH of Afib s/p ablation x2, type 2 DM, hypothyroidism, anemia, s/p pacemaker/ICD, CAD, HTN, HLD, s/p MVR, asthma, FRANCES on CPAP, ulcerative colitis, recent admission 10/03 with left posterior circulation ischemic CVA, now complicated with hemorrhagic transformation. - Patient Problems (1) Hemorrhagic cerebrovascular accident (CVA) Current Visit: Yes Status: Acute Code(s): I61.9 - NONTRAUMATIC INTRACEREBRAL HEMORRHAGE, UNSPECIFIED SNOMED Code(s): 805599195 Comment: - Ischemic CVA earlier this month, now with hemorrhagic conversion in the setting of Aspirin and Eliquis use. - S/p KCentra and platelet transfusion. - F/u CT brain shows bleeding is stable, despite some mental status fluctuation. - Neurosurgery input appreciated - recommended monitoring in ICU for 72h as this is the average time for clot stabilization. Continue seizure prophylaxis with Keppra. Goal SBP 140-160. - Continue neuro checks. -Neuro input appreciated (2) Atrial fibrillation Current Visit: Yes Status: Acute Code(s): I48.91 - UNSPECIFIED ATRIAL FIBRILLATION SNOMED Code(s): 23646717 Comment: - Continue dofetilide. - Off Aspirin and Eliquis in the setting of hemorrhagic CVA. (3) DVT prophylaxis Current Visit: Yes Status: Acute Code(s): [id number] - SNOMED Code(s): 430260037 Comment: - Pharmacological prophylaxis contraindicated in the setting of hemorrhagic CVA. - SCDs only. (4) Depression Current Visit: Yes Status: Acute Code(s): F32.9 - MAJOR DEPRESSIVE DISORDER , SINGLE EPISODE, UNSPECIFIED SNOMED Code(s): 93901481 Comment: -hold sertraline per neuro (5) Diabetes Current Visit: Yes Status: Acute Code(s): E11.9 - TYPE 2 DIABETES MELLITUS WITHOUT COMPLICATIONS SNOMED Code(s): 58259870 Comment: - Controlled - continue Lispro sliding scale. (6) HTN (hypertension) Current Visit: Yes Status: Acute Code(s): I10 - ESSENTIAL (PRIMARY) HYPERTENSION SNOMED Code(s): 49951599 Comment: - Goal SBP 140-160 - continue to monitor. -PRN Hydralazine -BP increasing -Will add Amlodipine 5 mg as pt not on routine BP meds and titrate (7) Hypothyroid Current Visit: Yes Status: Acute Code(s): E03.9 - HYPOTHYROIDISM, UNSPECIFIED SNOMED Code(s): 22537075 Comment: - Continue levothyroxine. (8) DNR (do not resuscitate) Current Visit: Yes Status: Acute Status and Disposition: Inpatient.
[2018-10-17] MEDS: amLODIPine TAB* 5 MG PO SCH (16:47)
[2018-10-17] MEDS: Atorvastatin* 80 MG TAB PO SCH (16:47)
[2018-10-18] MEDS: levETIRAcetam 500 MG IVPREMIX* 500 MG/100 ML BAG IV SCH ×2 (03:51→15:45)
[2018-10-18 05:44] LABS: ABS Basophils 0 10^3/ul (0-0.2); ABS Eosinophils 0.1 10^3/ul (0-0.6); ABS Lymphocytes 2.3 10^3/ul (1.0-4.8); ABS Neutrophils 7.1 10^3/ul (1.5-7.7); ABS Nucleated RBC 0 10^3/ul; Eosinophil % 1.1 %; Hematocrit 34 % (35-47); Lymphocyte % 21.9 %; Mean Corpuscular HGB Conc 33 g/dl (31-36); Mean Corpuscular Hemoglobin 29 pg (27-31); Mean Corpuscular Volume 89 fL (80-97); Mean Platelet Volume 7.7 fL (7.4-10.4); Nucleated Red Blood Cells % 0; Platelet Count 231 10^3/ul (150-450); Red Blood Count 3.77 10^6/ul (4.00-5.40); Red Cell Distribution Width 19 % (10.5-15); White Blood Count 10.5 10^3/ul (3.5-10.8)
[2018-10-18] MEDS: Levothyroxine TAB* 25 MCG TAB PO SCH (05:48)
[2018-10-18 06:03] LABS: BUN/Creatinine Ratio 25.2 (8-20); Calcium 10.2 mg/dL (8.6-10.3); EGFR African American 61.6 (>60); EGFR Non-African American 50.9 (>60); Potassium 3.8 mmol/L (3.5-5.0)
[2018-10-18] MEDS: Insulin LISPRO* 1 UNITS UNIT SUBCUT SCH ×3 (07:12→17:57)
[2018-10-18] MEDS: Docusate CAP* 100 MG PO SCH ×2 (08:55→21:22)
--- NOTE | 2018-10-18 09:12 | PN ---
Progress Note - Progress Note Date of Service: 10/18/18 SOAP: Subjective: [Patient seen and evaluated at 0900. Pt with hemorrhagic conversion of left PVC CVA. Denies headache, nausea. Unable to provide history of events since yesterday. Nurse reports stable stable neuro checks. ] Objective: [ Vital Signs: Temp Pulse Resp BP Pulse Ox 98.2 F 70 15 180/64 97 10/18/18 08:03 10/18/18 08:03 10/18/18 08:03 10/18/18 08:03 10/18/18 08:03 General: More alert this morning. NAD Neuro: Oriented to person. Moves all extremities. PERRL. Able to stand and transfer with assistance. Sensation intact throughout. CT brain obtained this morning is unchanged from previous study. ] Assessment: [Stable. 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 No neurosurgical intervention, we will sign off and are available if needed. 2. Ok to transfer to floor from neurosurgical standpoint, will likely need rehab ]
[2018-10-18] MEDS: BALSALAZIDE SODIUM 750 MG PO SCH ×2 (09:29→21:23)
[2018-10-18] MEDS: Pantoprazole TAB * 40 MG TAB PO SCH (09:29)
[2018-10-18] MEDS: amLODIPine TAB* 5 MG PO SCH (09:29)
[2018-10-18 09:46] LABS: Magnesium 1.6 mg/dL (1.9-2.7)
[2018-10-18] MEDS: Dofetilide CAP* 125 MCG PO SCH ×2 (10:10→21:22)
--- NOTE | 2018-10-18 11:05 | PN ---
Subjective Date of Service: 10/18/18 Interval History: More awake and oriented today.Denies any complaints Family History: Unchanged from Admission Social History: Unchanged from Admission Past Medical History: Unchanged from Admission Objective Active Medications: Acetaminophen (Tylenol Tab*) 650 mg PO Q6H PRN PRN Reason: FEVER/HEADACHE Last Admin: 10/17/18 03:37 Dose: 325 mg Amlodipine Besylate (Norvasc Tab*) 5 mg PO DAILY [facility] Last Admin: 10/18/18 09:29 Dose: 5 mg Atorvastatin Calcium (Lipitor*) 80 mg PO DAILY@1700 [facility] Last Admin: 10/17/18 16:47 Dose: 80 mg Balsalazide (Colazal Cap(Nf)) 1,500 mg PO BID [facility]; Protocol Last Admin: 10/18/18 09:29 Dose: 1,500 mg Dextrose (D50w Syringe 50 Ml*) 12.5 gm IV PUSH .FOR FS < 60 - SS PRN PRN Reason: FS < 60 Docusate Sodium (Colace Cap*) 100 mg PO BID [facility] Last Admin: 10/18/18 08:55 Dose: Not Given Dofetilide (Tikosyn Cap*) 125 mcg PO BID [facility] Last Admin: 10/18/18 10:10 Dose: 125 mcg Hydralazine HCl (Apresoline Iv*) 5 mg IV SLOW PU Q6H PRN PRN Reason: HTN Last Admin: 10/17/18 03:48 Dose: 5 mg Levetiracetam (Keppra Iv Premix*) 500 mg in 100 mls @ 400 mls/hr IV Q12H [facility] Last Admin: 10/18/18 03:51 Dose: 400 mls/hr Insulin Human Lispro (Humalog*) 0 units SUBCUT Q6HR [facility]; Protocol Last Admin: 10/18/18 07:12 Dose: 1 unit Levothyroxine Sodium (Synthroid Tab*) 12.5 mcg PO DAILY@0600 [facility] Last Admin: 10/18/18 05:48 Dose: 12.5 mcg Magnesium Hydroxide (Milk Of Magnesia Liq*) 30 ml PO Q6H PRN PRN Reason: CONSTIPATION Pantoprazole Sodium (Protonix Tab*) 40 mg PO DAILY [facility] Last Admin: 10/18/18 09:29 Dose: 40 mg Senna (Senokot Tab*) 2 tab PO BEDTIME PRN PRN Reason: CONSTIPATION Trimethobenzamide HCl (Tigan Cap*) 300 mg PO Q8H PRN PRN Reason: NAUSEA Trimethobenzamide HCl (Tigan Im*) 200 mg IM Q8HR PRN PRN Reason: NAUSEA Vital Signs - 8 hr 10/18/18 10/18/18 10/18/18 04:00 05:00 06:00 Temperature 98.4 F 98.1 F Pulse Rate 70 80 Respiratory 14 18 16 Rate Blood Pressure 130/83 155/63 (mmHg) O2 Sat by Pulse 97 94 Oximetry 10/18/18 10/18/18 10/18/18 06:15 07:00 08:00 Temperature 97.9 F 98.1 F 98.4 F Pulse Rate 69 71 69 Respiratory 12 12 18 Rate Blood Pressure (mmHg) O2 Sat by Pulse 94 96 96 Oximetry 10/18/18 10/18/18 10/18/18 08:03 09:00 10:00 Temperature 98.2 F 98.4 F 98.4 F Pulse Rate 70 86 83 Respiratory 15 17 18 Rate Blood Pressure 180/64 (mmHg) O2 Sat by Pulse 97 95 96 Oximetry 10/18/18 10:01 Temperature 96.6 F Pulse Rate 104 Respiratory 13 Rate Blood Pressure 130/108 (mmHg) O2 Sat by Pulse 96 Oximetry Oxygen Devices in Use Now: None Eyes: No Scleral Icterus Ears/Nose/Mouth/Throat: Clear Oropharnyx Neck: NL Appearance and Movements; NL JVP Respiratory: Symmetrical Chest Expansion and Respiratory Effort, Clear to Auscultation Cardiovascular: NL Sounds; No Murmurs; No JVD, RRR Abdominal: NL Sounds; No Tenderness; No Distention Extremities: No Edema Neurological: Alert and Oriented x 3, - - able to move all 4 extremities, gait not tested,cranial nerves intact Result Diagrams: 10/18/18 05:30 10/18/18 05:30 Microbiology and Other Data: Microbiology 10/15/18 15:12 Nasal Screen MRSA (PCR) - Final Nasal Mrsa Not Detected Assess/Plan/Problems-Billing Assessment: Mrs Anderson is an 83yo F with PMH of Afib s/p ablation x2, type 2 DM, hypothyroidism, anemia, s/p pacemaker/ICD, CAD, HTN, HLD, s/p MVR, asthma, FRANCES on CPAP, ulcerative colitis, recent admission 10/03 with left posterior circulation ischemic CVA, now complicated with hemorrhagic transformation. - Patient Problems (1) Hemorrhagic cerebrovascular accident (CVA) Current Visit: Yes Status: Acute Code(s): I61.9 - NONTRAUMATIC INTRACEREBRAL HEMORRHAGE, UNSPECIFIED SNOMED Code(s): 845881898 Comment: - Ischemic CVA earlier this month, now with hemorrhagic conversion in the setting of Aspirin and Eliquis use. - S/p KCentra and platelet transfusion. - F/u CT brain shows bleeding is stable, despite some mental status fluctuation. - Neurosurgery input appreciated - recommended monitoring in ICU for 72h as this is the average time for clot stabilization. Continue seizure prophylaxis with Keppra. Goal SBP 140-160. - Continue neuro checks. -Neuro input appreciated -Plan for transfer out of ICU today (2) Atrial fibrillation Current Visit: Yes Status: Acute Code(s): I48.91 - UNSPECIFIED ATRIAL FIBRILLATION SNOMED Code(s): 47066981 Comment: - Continue dofetilide. - Off Aspirin and Eliquis in the setting of hemorrhagic CVA. (3) DVT prophylaxis Current Visit: Yes Status: Acute Code(s): [id number] - SNOMED Code(s): 763984858 Comment: - Pharmacological prophylaxis contraindicated in the setting of hemorrhagic CVA. - SCDs only. (4) Depression Current Visit: Yes Status: Acute Code(s): F32.9 - MAJOR DEPRESSIVE DISORDER , SINGLE EPISODE, UNSPECIFIED SNOMED Code(s): 24565254 Comment: -hold sertraline per neuro (5) Diabetes Current Visit: Yes Status: Acute Code(s): E11.9 - TYPE 2 DIABETES MELLITUS WITHOUT COMPLICATIONS SNOMED Code(s): 89427303 Comment: - Controlled - continue Lispro sliding scale. (6) HTN (hypertension) Current Visit: Yes Status: Acute Code(s): I10 - ESSENTIAL (PRIMARY) HYPERTENSION SNOMED Code(s): 19139088 Comment: - Goal SBP 140-160 - continue to monitor. -PRN Hydralazine -BP increasing -Will add Amlodipine 5 mg as pt not on routine BP meds and titrate (7) Hypothyroid Current Visit: Yes Status: Acute Code(s): E03.9 - HYPOTHYROIDISM, UNSPECIFIED SNOMED Code(s): 69539672 Comment: - Continue levothyroxine. (8) DNR (do not resuscitate) Current Visit: Yes Status: Acute Status and Disposition: Inpatient.
[2018-10-18] MEDS: Atorvastatin* 80 MG TAB PO SCH (16:50)
[2018-10-18] MEDS: Acetaminophen TAB* 325 MG PO PRN (16:50)
[2018-10-19] MEDS: Insulin LISPRO* 1 UNITS UNIT SUBCUT SCH ×4 (00:48→18:40)
[2018-10-19] MEDS: levETIRAcetam 500 MG IVPREMIX* 500 MG/100 ML BAG IV SCH ×2 (04:29→15:37)
[2018-10-19] MEDS: Levothyroxine TAB* 25 MCG TAB PO SCH (05:33)
[2018-10-19 06:19] LABS: ABS Basophils 0 10^3/ul (0-0.2); ABS Eosinophils 0.2 10^3/ul (0-0.6); ABS Lymphocytes 2.1 10^3/ul (1.0-4.8); ABS Monocytes 0.7 10^3/ul (0-0.8); ABS Neutrophils 6.5 10^3/ul (1.5-7.7); ABS Nucleated RBC 0 10^3/ul; Eosinophil % 1.8 %; Hematocrit 32 % (35-47); Hemoglobin 10.8 g/dl (12.0-16.0); Lymphocyte % 21.8 %; Mean Corpuscular HGB Conc 34 g/dl (31-36); Mean Corpuscular Hemoglobin 30 pg (27-31); Mean Corpuscular Volume 89 fL (80-97); Mean Platelet Volume 7.6 fL (7.4-10.4); Nucleated Red Blood Cells % 0; Platelet Count 202 10^3/ul (150-450); Red Blood Count 3.59 10^6/ul (4.00-5.40); Red Cell Distribution Width 19 % (10.5-15); White Blood Count 9.6 10^3/ul (3.5-10.8)
[2018-10-19 06:44] LABS: BUN/Creatinine Ratio 25.5 (8-20); Calcium 9.8 mg/dL (8.6-10.3); EGFR African American 57.1 (>60); EGFR Non-African American 47.2 (>60); Potassium 3.8 mmol/L (3.5-5.0)
[2018-10-19] MEDS: amLODIPine TAB* 5 MG PO SCH (08:06)
[2018-10-19] MEDS: Pantoprazole TAB * 40 MG TAB PO SCH (08:06)
[2018-10-19] MEDS: Docusate CAP* 100 MG PO SCH ×2 (08:06→21:34)
[2018-10-19] MEDS: Dofetilide CAP* 125 MCG PO SCH ×3 (08:06→21:34)
[2018-10-19 08:40] LABS: Magnesium 1.7 mg/dL (1.9-2.7)
[2018-10-19] MEDS ORDERED: Magnesium Sulfate 2 GM IV* 2 GM/50 ML BAG IVPB ONE (08:51)
[2018-10-19] MEDS: BALSALAZIDE SODIUM 750 MG PO SCH ×2 (09:15→21:37)
--- NOTE | 2018-10-19 15:38 | PN ---
Subjective Date of Service: 10/19/18 Interval History: Patient seen and examined at bedside. Denies fever, chills, shortness of breath , chest discomfort, N/V/D. Family reports excoriated leah area, [facility] staff have been using cream containing zinc. Patient is reporting left calf discomfort. [facility] staff report that she is more lethargic this afternoon. No new neurological deficits. Pts family report that she is often tired in the afternoons and fatigued. Son is concerned that [employer]Dy[employer]os[employer] may not be working anymore. He will discuss this with her Rfid Engineer, Dr. Roberts. The family is upset regarding the food she is getting, will discuss this with dietary. Tele: Paced, rate 70's Family History: Unchanged from Admission Social History: Unchanged from Admission Past Medical History: Unchanged from Admission Objective Active Medications: Acetaminophen (Tylenol Tab*) 650 mg PO Q6H PRN Reason: FEVER/HEADACHE Amlodipine Besylate (Norvasc Tab*) 5 mg PO DAILY [facility] Atorvastatin Calcium (Lipitor*) 80 mg PO DAILY@1700 [facility] Balsalazide (Colazal Cap(Nf)) 1,500 mg PO BID [facility]; Protocol Dextrose (D50w Syringe 50 Ml*) 12.5 gm IV PUSH .FOR FS < 60 - SS PRN Reason: FS < 60 Docusate Sodium (Colace Cap*) 100 mg PO BID [facility] Dofetilide (Tikosyn Cap*) 125 mcg PO BID [facility] Hydralazine HCl (Apresoline Iv*) 5 mg IV SLOW PU Q6H PRN Reason: HTN Levetiracetam (Keppra Iv Premix*) 500 mg in 100 mls @ 400 mls/hr IV Q12H [facility] Insulin Human Lispro (Humalog*) 0 units SUBCUT Q6HR [facility]; Protocol Levothyroxine Sodium (Synthroid Tab*) 12.5 mcg PO DAILY@0600 [facility] Magnesium Hydroxide (Milk Of Magnesia Liq*) 30 ml PO Q6H PRN Reason: CONSTIPATION Pantoprazole Sodium (Protonix Tab*) 40 mg PO DAILY [facility] Senna (Senokot Tab*) 2 tab PO BEDTIME PRN Reason: CONSTIPATION Trimethobenzamide HCl (Tigan Cap*) 300 mg PO Q8H PRN Reason: NAUSEA Trimethobenzamide HCl (Tigan Im*) 200 mg IM Q8HR PRN Reason: NAUSEA Vital Signs - 8 hr 10/19/18 10/19/18 10/19/18 07:44 08:00 08:06 Temperature 97.6 F Pulse Rate 70 Respiratory 16 16 Rate Blood Pressure 123/41 180/78 (mmHg) O2 Sat by Pulse 96 Oximetry 10/19/18 11:13 Temperature 98.4 F Pulse Rate 77 Respiratory 18 Rate Blood Pressure 130/48 (mmHg) O2 Sat by Pulse 95 Oximetry Oxygen Devices in Use Now: None Appearance: NAD, laying in bed Ears/Nose/Mouth/Throat: Mucous Membranes Moist Respiratory: Symmetrical Chest Expansion and Respiratory Effort, Clear to Auscultation Cardiovascular: NL Sounds; No Murmurs; No JVD, RRR Abdominal: NL Sounds; No Tenderness; No Distention Extremities: No Edema, - - Tenderness to left posterior calf Skin: No Rash or Ulcers Neurological: Alert and Oriented x 3, NL Muscle Strength and Tone Nutrition: Taking PO's Result Diagrams: 10/19/18 06:02 10/19/18 06:02 Microbiology and Other Data: Microbiology 10/15/18 15:12 Nasal Screen MRSA (PCR) - Final Nasal Mrsa Not Detected Assess/Plan/Problems-Billing Assessment: Ms. Anderson is an 83 yo F with PMH of Afib s/p ablation x2, type 2 DM, hypothyroidism, anemia, s/p pacemaker/ICD, CAD, HTN, HLD, s/p MVR, asthma, FRANCES on CPAP, ulcerative colitis, recent admission 10/03 with left posterior circulation ischemic CVA, now complicated with hemorrhagic transformation. - Patient Problems (1) Hemorrhagic cerebrovascular accident (CVA) Code(s): I61.9 - NONTRAUMATIC INTRACEREBRAL HEMORRHAGE, UNSPECIFIED SNOMED Code(s): 034914959 Comment: - Ischemic CVA earlier this month, now with hemorrhagic conversion in the setting of Aspirin and Eliquis use - S/P KCentra and platelet transfusion - F/U CT brain shows bleeding is stable, despite some mental status fluctuation - Neurosurgery and neurology input appreciated - Continue seizure prophylaxis with Keppra - Goal SBP 140-160 - Continue neuro checks (2) Atrial fibrillation Code(s): I48.91 - UNSPECIFIED ATRIAL FIBRILLATION SNOMED Code(s): 15792991 Comment: - Heart rate paced on tele today - Continue dofetilide - Off Aspirin and Eliquis in the setting of hemorrhagic CVA (3) Diabetes Current Visit: Yes Status: Acute Code(s): E11.9 - TYPE 2 DIABETES MELLITUS WITHOUT COMPLICATIONS SNOMED Code(s): 80130505 Comment: - Glucose 180-230's - Continue Lispro sliding scale - Continue to hold metformin and glipizide (4) HTN (hypertension) Current Visit: Yes Status: Acute Code(s): I10 - ESSENTIAL (PRIMARY) HYPERTENSION SNOMED Code(s): 07241026 Comment: - Mostly normotensive, SBP 120-130's. 1 SBP 180 today. - Goal SBP 140-160 - Continue Amlodipine 5 mg and PRN Hydralazine (5) Depression Code(s): F32.9 - MAJOR DEPRESSIVE DISORDER, SINGLE EPISODE, UNSPECIFIED SNOMED Code(s): 06982788 Comment: - Hold sertraline per neuro (6) Chronic systolic (congestive) heart failure Code(s): I50.22 - CHRONIC SYSTOLIC (CONGESTIVE) HEART FAILURE SNOMED Code(s): 077596671 Comment: - No signs of acute diastolic CHF exacerbation at this time - Echo from 07/02 showed EF 50-55% with mild-moderate LV hypertrophy, however has previously had severely reduced EF (20-25% in 2015) - Not currently on diuretics - Daily weights and strict I+O's (7) Hypothyroid Code(s): E03.9 - HYPOTHYROIDISM, UNSPECIFIED SNOMED Code(s): 34333150 Comment: - TSH 3.92 on 09/25/18 - Continue levothyroxine (8) Iron deficiency anemia Code(s): D50.9 - IRON DEFICIENCY ANEMIA, UNSPECIFIED SNOMED Code(s): 67123834 Comment: - Resume ferrous sulfate (9) DVT prophylaxis Code(s): YKP2497 - SNOMED Code(s): 777964398 Comment: - Pharmacological prophylaxis contraindicated in the setting of hemorrhagic CVA - SCDs only (10) DNR (do not resuscitate) Status and Disposition: Inpatient. Attending: Phoenix Harper
[2018-10-19] MEDS: Atorvastatin* 80 MG TAB PO SCH (18:40)
[2018-10-20] MEDS: Insulin LISPRO* 1 UNITS UNIT SUBCUT SCH ×4 (00:33→18:24)
[2018-10-20] MEDS: levETIRAcetam 500 MG IVPREMIX* 500 MG/100 ML BAG IV SCH ×2 (04:08→16:38)
[2018-10-20] MEDS: Levothyroxine TAB* 25 MCG TAB PO SCH (05:55)
--- NOTE | 2018-10-20 08:33 | PN ---
Subjective Date of Service: 10/20/18 Interval History: Patient seen and examined at bedside. Denies fever, chills, shortness of breath , chest discomfort, N/V/D. She is much more alert this morning than she wsa yesterday afternoon/evening. Tele: Sinus rhythm, intermittent paced. Rate 70-80's. Noted to have 8 beat run of vtach overnight. Family History: Unchanged from Admission Social History: Unchanged from Admission Past Medical History: Unchanged from Admission Objective Active Medications: Acetaminophen (Tylenol Tab*) 650 mg PO Q6H PRN Reason: FEVER/HEADACHE Amlodipine Besylate (Norvasc Tab*) 5 mg PO DAILY [facility] Atorvastatin Calcium (Lipitor*) 80 mg PO DAILY@1700 [facility] Balsalazide (Colazal Cap(Nf)) 1,500 mg PO BID [facility]; Protocol Dextrose (D50w Syringe 50 Ml*) 12.5 gm IV PUSH .FOR FS < 60 - SS PRN Reason: FS < 60 Docusate Sodium (Colace Cap*) 100 mg PO BID [facility] Dofetilide (Tikosyn Cap*) 125 mcg PO BID [facility] Ferrous Sulfate (Ferrous Sulfate Tab*) 325 mg PO DAILY [facility] Hydralazine HCl (Apresoline Iv*) 5 mg IV SLOW PU Q6H PRN Reason: HTN Levetiracetam (Keppra Iv Premix*) 500 mg in 100 mls @ 400 mls/hr IV Q12H [facility] Insulin Human Lispro (Humalog*) 0 units SUBCUT Q6HR [facility]; Protocol Levothyroxine Sodium (Synthroid Tab*) 12.5 mcg PO DAILY@0600 [facility] Magnesium Hydroxide (Milk Of Magnesia Liq*) 30 ml PO Q6H PRN Reason: CONSTIPATION Pantoprazole Sodium (Protonix Tab*) 40 mg PO DAILY [facility] Senna (Senokot Tab*) 2 tab PO BEDTIME PRN Reason: CONSTIPATION Trimethobenzamide HCl (Tigan Cap*) 300 mg PO Q8H PRN Reason: NAUSEA Trimethobenzamide HCl (Tigan Im*) 200 mg IM Q8HR PRN Reason: NAUSEA Vital Signs - 8 hr 10/20/18 10/20/18 10/20/18 04:36 07:28 07:36 Temperature 98.3 F 98.0 F Pulse Rate 71 73 Respiratory 16 16 16 Rate Blood Pressure 141/47 118/51 (mmHg) O2 Sat by Pulse 94 95 Oximetry Oxygen Devices in Use Now: None Appearance: NAD, sitting up in bed Ears/Nose/Mouth/Throat: Mucous Membranes Moist Respiratory: Symmetrical Chest Expansion and Respiratory Effort, Clear to Auscultation Cardiovascular: NL Sounds; No Murmurs; No JVD, RRR Abdominal: NL Sounds; No Tenderness; No Distention Extremities: No Edema Neurological: Alert and Oriented x 3, NL Muscle Strength and Tone Nutrition: Taking PO's Result Diagrams: 10/19/18 06:02 10/20/18 08:03 Microbiology and Other Data: Microbiology 10/15/18 15:12 Nasal Screen MRSA (PCR) - Final Nasal Mrsa Not Detected Assess/Plan/Problems-Billing Assessment: Ms. Anderson is an 83 yo F with PMH of Afib s/p ablation x2, type 2 DM, hypothyroidism, anemia, s/p pacemaker/ICD, CAD, HTN, HLD, s/p MVR, asthma, FRANCES on CPAP, ulcerative colitis, recent admission 10/03 with left posterior circulation ischemic CVA, now complicated with hemorrhagic transformation. - Patient Problems (1) Hemorrhagic cerebrovascular accident (CVA) Code(s): I61.9 - NONTRAUMATIC INTRACEREBRAL HEMORRHAGE, UNSPECIFIED SNOMED Code(s): 859940109 Comment: - Ischemic CVA earlier this month, now with hemorrhagic conversion in the setting of Aspirin and Eliquis use - S/P KCentra and platelet transfusion - F/U CT brain shows bleeding is stable, despite some mental status fluctuation - Neurosurgery and neurology input appreciated - Continue seizure prophylaxis with Keppra (for 1 week) - Goal SBP 140-160 - Continue neuro checks (2) Atrial fibrillation Code(s): I48.91 - UNSPECIFIED ATRIAL FIBRILLATION SNOMED Code(s): 72162564 Comment: - Heart rate intermittent paced on tele today - Continue dofetilide - Off Aspirin and Eliquis in the setting of hemorrhagic CVA (3) Ventricular tachycardia Code(s): I47.2 - VENTRICULAR TACHYCARDIA SNOMED Code(s): 54712035 Comment: - Had 8 beats overnight on 10/19/18 - Continue to monitor on tele - Labs pending for this AM (4) Pain of left calf Code(s): M79.662 - PAIN IN LEFT LOWER LEG SNOMED Code(s): 971862604 Comment: - Resolved - No redness or swelling - Venous doppler negative for DVT (5) Diabetes Current Visit: Yes Status: Acute Code(s): E11.9 - TYPE 2 DIABETES MELLITUS WITHOUT COMPLICATIONS SNOMED Code(s): 02584313 Comment: - Glucose 180-200's - Continue Lispro sliding scale - Continue to hold metformin and glipizide (6) HTN (hypertension) Current Visit: Yes Status: Acute Code(s): I10 - ESSENTIAL (PRIMARY) HYPERTENSION SNOMED Code(s): 31033002 Comment: - Mostly normotensive, SBP 110-140's - Goal SBP 140-160 - Continue Amlodipine 5 mg and PRN Hydralazine (7) Depression Code(s): F32.9 - MAJOR DEPRESSIVE DISORDER, SINGLE EPISODE, UNSPECIFIED SNOMED Code(s): 81781868 Comment: - Hold sertraline per neuro (8) Chronic systolic (congestive) heart failure Code(s): I50.22 - CHRONIC SYSTOLIC (CONGESTIVE) HEART FAILURE SNOMED Code(s): 894623727 Comment: - No signs of acute diastolic CHF exacerbation at this time - Echo from 07/02 showed EF 50-55% with mild-moderate LV hypertrophy, however has previously had severely reduced EF (20-25% in 2015) - Not currently on diuretics - Daily weights and strict I+O's (9) Hypothyroid Code(s): E03.9 - HYPOTHYROIDISM, UNSPECIFIED SNOMED Code(s): 05422316 Comment: - TSH 3.92 on 09/25/18 - Continue levothyroxine (10) Iron deficiency anemia Code(s): D50.9 - IRON DEFICIENCY ANEMIA, UNSPECIFIED SNOMED Code(s): 85936582 Comment: - Continue ferrous sulfate (11) DVT prophylaxis Code(s): AWQ3914 - SNOMED Code(s): 618600911 Comment: - Pharmacological prophylaxis contraindicated in the setting of hemorrhagic CVA - SCDs only (12) DNR (do not resuscitate) Status and Disposition: Inpatient. Suspect she will need RIK at discharge. Attending: Phoneix Harper
[2018-10-20 08:44] LABS: BUN/Creatinine Ratio 20.9 (8-20); EGFR African American 57.1 (>60); EGFR Non-African American 47.2 (>60); Magnesium 2.1 mg/dL (1.9-2.7)
[2018-10-20] MEDS: Ferrous Sulfate TAB* 325 MG PO SCH (08:55)
[2018-10-20] MEDS: Pantoprazole TAB * 40 MG TAB PO SCH (08:55)
[2018-10-20] MEDS: amLODIPine TAB* 5 MG PO SCH (08:55)
[2018-10-20] MEDS: Dofetilide CAP* 125 MCG PO SCH ×2 (09:08→22:30)
[2018-10-20] MEDS: Docusate CAP* 100 MG PO SCH ×2 (09:09→22:30)
[2018-10-20] MEDS: BALSALAZIDE SODIUM 750 MG PO SCH ×2 (09:09→22:31)
[2018-10-20] MEDS: Atorvastatin* 80 MG TAB PO SCH (16:37)
[2018-10-21] MEDS: Insulin LISPRO* 1 UNITS UNIT SUBCUT SCH ×4 (00:39→21:57)
[2018-10-21] MEDS: levETIRAcetam 500 MG IVPREMIX* 500 MG/100 ML BAG IV SCH ×2 (04:17→18:06)
[2018-10-21] MEDS: Levothyroxine TAB* 25 MCG TAB PO SCH (05:49)
[2018-10-21] MEDS: Dofetilide CAP* 125 MCG PO SCH ×2 (08:45→21:57)
[2018-10-21] MEDS: amLODIPine TAB* 5 MG PO SCH (08:46)
[2018-10-21] MEDS: Ferrous Sulfate TAB* 325 MG PO SCH (08:46)
[2018-10-21] MEDS: BALSALAZIDE SODIUM 750 MG PO SCH ×2 (08:47→21:59)
[2018-10-21] MEDS: Pantoprazole TAB * 40 MG TAB PO SCH (08:47)
[2018-10-21] MEDS: Docusate CAP* 100 MG PO SCH ×2 (08:47→21:57)
[2018-10-21] MEDS ORDERED: Metoprolol Tartrate IV* 1 MG/ML 5 ML VIAL IV ONE (09:00)
[2018-10-21] MEDS ORDERED: Metoprolol Tartrate IV* 1 MG/ML 5 ML VIAL ONE (09:00)
[2018-10-21] MEDS: Metoprolol Tartrate TAB* 25 MG PO SCH ×2 (11:07→21:56)
[2018-10-21 11:12] LABS: ABS Basophils 0 10^3/ul (0-0.2); ABS Eosinophils 0.1 10^3/ul (0-0.6); ABS Lymphocytes 2.2 10^3/ul (1.0-4.8); ABS Monocytes 0.8 10^3/ul (0-0.8); ABS Nucleated RBC 0 10^3/ul; Eosinophil % 0.9 %; Hematocrit 36 % (35-47); Lymphocyte % 21.9 %; Mean Corpuscular HGB Conc 33 g/dl (31-36); Mean Corpuscular Hemoglobin 29 pg (27-31); Mean Corpuscular Volume 89 fL (80-97); Mean Platelet Volume 8.1 fL (7.4-10.4); Nucleated Red Blood Cells % 0; Platelet Count 207 10^3/ul (150-450); Red Blood Count 4.08 10^6/ul (4.00-5.40); Red Cell Distribution Width 19 % (10.5-15); White Blood Count 10.1 10^3/ul (3.5-10.8)
[2018-10-21 11:34] LABS: BUN/Creatinine Ratio 22.1 (8-20); Calcium 10.3 mg/dL (8.6-10.3); EGFR African American 55.4 (>60); EGFR Non-African American 45.8 (>60); Magnesium 1.8 mg/dL (1.9-2.7); Potassium 3.7 mmol/L (3.5-5.0)
--- NOTE | 2018-10-21 11:58 | PN ---
Subjective Date of Service: 10/21/18 Length of Stay: 6 Days Neurology is following for the evaluation and management recommendation of stroke. Interval History: Review of the previous history: The patient was evaluated by me on 09/25/2018 for headaches. She was found to have a large left MANUFACTURING TECHNICIAN vascular territory ischemic infarction. She was not a candidate for IV tPA or mechanical thrombectomy due to being on anticoagulation and there was no suspected proximal large vessel occlusion. The anticoagulation therapy was held. She went to acute rehabilitation. She was restarted on Eliquis 2 weeks post stroke. She developed increase in confusion and a repeat CT head showed hemorrhagic conversion of the infarcted left MANUFACTURING TECHNICIAN territory stroke. The patient has fixed right homonymous hemianopsia. She is currently off all antiplatelet and anticoagulation therapy. S: The patient was reported to be conversing this morning. She fed herself. She still reports chronic headaches. She is exhibiting aphasia that waxes and wanes according to Timothy (brother) and Nikolai (son). She had a run of atrial fibrillation today and was given metoprolol. Review of Systems: Denied CP, SOB, or palpitations. Family History: Unchanged from Admission Social History: Unchanged from Admission Past Medical History: Unchanged from Admission Objective Active Medications: Acetaminophen (Tylenol Tab*) 650 mg PO Q6H PRN PRN Reason: FEVER/HEADACHE Last Admin: 10/18/18 16:50 Dose: 650 mg Amlodipine Besylate (Norvasc Tab*) 5 mg PO DAILY [facility] Last Admin: 10/21/18 08:46 Dose: 5 mg Atorvastatin Calcium (Lipitor*) 80 mg PO DAILY@1700 [facility] Last Admin: 10/20/18 16:37 Dose: 80 mg Balsalazide (Colazal Cap(Nf)) 1,500 mg PO BID [facility]; Protocol Last Admin: 10/21/18 08:47 Dose: 1,500 mg Dextrose (D50w Syringe 50 Ml*) 12.5 gm IV PUSH .FOR FS < 60 - SS PRN PRN Reason: FS < 60 Docusate Sodium (Colace Cap*) 100 mg PO BID [facility] Last Admin: 10/21/18 08:47 Dose: 100 mg Dofetilide (Tikosyn Cap*) 125 mcg PO BID [facility] Last Admin: 10/21/18 08:45 Dose: 125 mcg Ferrous Sulfate (Ferrous Sulfate Tab*) 325 mg PO DAILY [facility] Last Admin: 10/21/18 08:46 Dose: 325 mg Hydralazine HCl (Apresoline Iv*) 5 mg IV SLOW PU Q6H PRN PRN Reason: HTN Last Admin: 10/17/18 03:48 Dose: 5 mg Levetiracetam (Keppra Iv Premix*) 500 mg in 100 mls @ 400 mls/hr IV Q12H [facility] Last Admin: 10/21/18 04:17 Dose: 400 mls/hr Insulin Human Lispro (Humalog*) 0 units SUBCUT Q6HR [facility]; Protocol Last Admin: 10/21/18 05:48 Dose: 4 unit Levothyroxine Sodium (Synthroid Tab*) 12.5 mcg PO DAILY@0600 [facility] Last Admin: 10/21/18 05:49 Dose: 12.5 mcg Magnesium Hydroxide (Milk Of Magnesia Liq*) 30 ml PO Q6H PRN PRN Reason: CONSTIPATION Metoprolol Tartrate (Lopressor Tab*) 25 mg PO BID [facility] Last Admin: 10/21/18 11:07 Dose: 25 mg Pantoprazole Sodium (Protonix Tab*) 40 mg PO DAILY [facility] Last Admin: 10/21/18 08:47 Dose: 40 mg Senna (Senokot Tab*) 2 tab PO BEDTIME PRN PRN Reason: CONSTIPATION Trimethobenzamide HCl (Tigan Cap*) 300 mg PO Q8H PRN PRN Reason: NAUSEA Trimethobenzamide HCl (Tigan Im*) 200 mg IM Q8HR PRN PRN Reason: NAUSEA Vital Signs 10/21/18 10/21/18 10/21/18 03:46 08:00 08:04 Temperature 97.5 F 97.8 F Pulse Rate 72 48 Respiratory 16 15 15 Rate Blood Pressure 128/52 146/44 (mmHg) O2 Sat by Pulse 92 92 Oximetry 10/21/18 11:09 Temperature Pulse Rate 104 Respiratory Rate Blood Pressure 125/60 (mmHg) O2 Sat by Pulse 95 Oximetry Intake and Output Last 24 Hours 10/19/18 10/20/18 10/21/18 10/22/18 06:59 06:59 06:59 06:59 Intake Total 240 820 Output Total 785 1800 0 Balance -545 -980 0 Weight 164 lb 8 oz 162 lb 3.2 oz Intake: Oral 240 820 Output: Cortés 785 1800 0 Liquid Stool 0 Other: Date of Last Bowel 10/18/18 Movement # Bowel Movements 1 1 1 1 Estimated Stool Amount Large Small Medium Medium Oxygen Devices in Use Now: None Neurology Exam: General: Ill appearing elderly female in no acute distress. Resting comfortable. HEENT: Normocephalic/atraumatic, sclera anicteric, mucous membranes moist Neck: Supple Chest: Clear to auscultation bilaterally Cardiovascular: Regular rate and rhythm without murmurs, rubs, gallops Extremities: No clubbing, cyanosis, or edema Neurological Findings: Alert to self, place, but not time or year. She did recognize her brother but not son at bedside. She has Speech: mild spastic dysarthria. Cranial Nerve: PERRL, EOM-I, mild left facial droop. Motor: she moves all four limbs to command with mild weakness on the right graded as 4/5 throughout. She had a mild pronator drift on the right. Sensation: intact to LT/PP bilaterally upper and lower extremities Deep Tendon Reflex: 2+ symmetric in the upper/lower extremities, Babinski - down going Finger to nose, rapid alternating movements intact without tremor, no dysdiadochokinesia Gait: ambulates with walker. Wide based with on person assist. Result Diagrams: 10/21/18 10:45 10/21/18 10:45 Microbiology and Other Data: Microbiology 10/15/18 15:12 Nasal Screen MRSA (PCR) - Final Nasal Mrsa Not Detected Assessment/Plan 1. Subacute-chronic left MANUFACTURING TECHNICIAN vascular territory ischemic infarct with hemorrhagic conversion Recommendations: - Reduce the atorvastatin to 40 mg nightly given her normal lipid panel and the increase risk of ICH with statin therapy in the elderly (LDL and triglycerides are within normal level). - She is not a candidate for anticoagulation therapy at this time. However, if she continues to improve clinically, and a repeat CT head shows resolution of the hemorrhagic infarct, we may be able to consider starting coumadin with close monitoring of the INR and having a lower range of therapeutic level (INR 2 -<2.5). - If she continues to show clinical improvement, We will repeat a CT head during the end of the week before restarting aspirin 81 mg daily. - Reduce levetiracetam to 250 mg twice daily. - Neuro checks every 4 hours - Continue supportive care Time spent: 40 minutes of which >50% spent reviewing the electronic medical records, interviewing the patient, examination, education and counseling, and discussing the treatment plan with the patient and Nikolai at bedside.
[2018-10-21] MEDS ORDERED: Potassium Chloride LIQUID* 20 MEQ PACKET PO ONE (14:20)
[2018-10-21] MEDS ORDERED: Magnesium Sulfate 2 GM IV* 2 GM/50 ML BAG IVPB ONE (14:20)
--- NOTE | 2018-10-21 16:37 | PN ---
Subjective Date of Service: 10/21/18 Interval History: Patient is feeling better today, Family is very pleased with how she is doing. Patient had an episode of tachycardia this Am with palpitations which responded to BB. Patient denies CP, SOB, dizziness, palpitations, weakness, F/C, abdominal pain, or other pain. Family History: Unchanged from Admission Social History: Unchanged from Admission Past Medical History: Unchanged from Admission Objective Active Medications: Acetaminophen (Tylenol Tab*) 650 mg PO Q6H PRN PRN Reason: FEVER/HEADACHE Last Admin: 10/18/18 16:50 Dose: 650 mg Amlodipine Besylate (Norvasc Tab*) 5 mg PO DAILY [facility] Last Admin: 10/21/18 08:46 Dose: 5 mg Atorvastatin Calcium (Lipitor*) 80 mg PO DAILY@1700 [facility] Last Admin: 10/20/18 16:37 Dose: 80 mg Balsalazide (Colazal Cap(Nf)) 1,500 mg PO BID [facility]; Protocol Last Admin: 10/21/18 08:47 Dose: 1,500 mg Dextrose (D50w Syringe 50 Ml*) 12.5 gm IV PUSH .FOR FS < 60 - SS PRN PRN Reason: FS < 60 Docusate Sodium (Colace Cap*) 100 mg PO BID [facility] Last Admin: 10/21/18 08:47 Dose: 100 mg Dofetilide (Tikosyn Cap*) 125 mcg PO BID [facility] Last Admin: 10/21/18 08:45 Dose: 125 mcg Ferrous Sulfate (Ferrous Sulfate Tab*) 325 mg PO DAILY [facility] Last Admin: 10/21/18 08:46 Dose: 325 mg Hydralazine HCl (Apresoline Iv*) 5 mg IV SLOW PU Q6H PRN PRN Reason: HTN Last Admin: 10/17/18 03:48 Dose: 5 mg Levetiracetam (Keppra Iv Premix*) 500 mg in 100 mls @ 400 mls/hr IV Q12H [facility] Last Admin: 10/21/18 04:17 Dose: 400 mls/hr Insulin Human Lispro (Humalog*) 0 units SUBCUT Q6HR [facility]; Protocol Last Admin: 10/21/18 12:33 Dose: 6 unit Levothyroxine Sodium (Synthroid Tab*) 12.5 mcg PO DAILY@0600 [facility] Last Admin: 10/21/18 05:49 Dose: 12.5 mcg Magnesium Hydroxide (Milk Of Magnesia Liq*) 30 ml PO Q6H PRN PRN Reason: CONSTIPATION Metoprolol Tartrate (Lopressor Tab*) 25 mg PO BID [facility] Last Admin: 10/21/18 11:07 Dose: 25 mg Pantoprazole Sodium (Protonix Tab*) 40 mg PO DAILY [facility] Last Admin: 10/21/18 08:47 Dose: 40 mg Senna (Senokot Tab*) 2 tab PO BEDTIME PRN PRN Reason: CONSTIPATION Trimethobenzamide HCl (Tigan Cap*) 300 mg PO Q8H PRN PRN Reason: NAUSEA Trimethobenzamide HCl (Tigan Im*) 200 mg IM Q8HR PRN PRN Reason: NAUSEA Vital Signs - 8 hr 10/21/18 10/21/18 11:09 15:09 Temperature 97.6 F Pulse Rate 104 102 Respiratory 16 Rate Blood Pressure 125/60 133/73 (mmHg) O2 Sat by Pulse 95 98 Oximetry Oxygen Devices in Use Now: None Appearance: Patient is an 83yo female who appears stated age and is sitting in the bed in [facility]. Eyes: No Scleral Icterus, PERRLA Ears/Nose/Mouth/Throat: NL Teeth, Lips, Gums, Clear Oropharnyx, Mucous Membranes Moist Neck: NL Appearance and Movements; NL JVP, Trachea Midline Respiratory: Symmetrical Chest Expansion and Respiratory Effort, Clear to Auscultation Cardiovascular: NL Sounds; No Murmurs; No JVD, RRR, No Edema Abdominal: NL Sounds; No Tenderness; No Distention, No Hepatosplenomegaly Lymphatic: No Cervical Adenopathy Extremities: No Edema, No Clubbing, Cyanosis Skin: No Rash or Ulcers, No Nodules or Sclerosis Neurological: Alert and Oriented x 3, NL Sensation, NL Muscle Strength and Tone , - - CN II-XII intact. Result Diagrams: 10/21/18 10:45 10/21/18 10:45 Microbiology and Other Data: Microbiology 10/15/18 15:12 Nasal Screen MRSA (PCR) - Final Nasal Mrsa Not Detected Assess/Plan/Problems-Billing 1. 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 - She is not a candidate for anticoagulation therapy at this time. However, if she continues to improve clinically, and a repeat CT head shows resolution of the hemorrhagic infarct, we may be able to consider starting coumadin with close monitoring of the INR and having a lower range of therapeutic level (INR 2 -<2.5). - If she continues to show clinical improvement, We will repeat a CT head during the end of the week before restarting aspirin 81 mg daily. - Reduce levetiracetam to 250 mg twice daily. - Neuro checks every 4 hours - Continue supportive care Time spent: 40 minutes of which >50% spent reviewing the electronic medical records, interviewing the patient, examination, education and counseling, and discussing the treatment plan with the patient and Nikolai at bedside. End Neuro Progress Note Assessment: Patient is an 83yo f with a PMH for Afib/flutter S/P several abalations, CAD, CVA x2 who is admitted with hemorrhagic conversion of her SPARE FIXER stroke who is now developing intermittent afib. - Patient Problems (1) Hemorrhagic cerebrovascular accident (CVA) Current Visit: Yes Status: Acute Code(s): I61.9 - NONTRAUMATIC INTRACEREBRAL HEMORRHAGE, UNSPECIFIED SNOMED Code(s): 410555072 Comment: - Ischemic CVA earlier this month, now with hemorrhagic conversion in the setting of Aspirin and Eliquis use - S/P KCentra and platelet transfusion - F/U CT brain shows bleeding is stable, despite some mental status fluctuation - Neurosurgery and neurology input appreciated - Continue seizure prophylaxis with Keppra (for 1 week) - Goal SBP 140-160 - Continue neuro checks - PT/OT (2) Diabetes Current Visit: Yes Status: Acute Code(s): E11.9 - TYPE 2 DIABETES MELLITUS WITHOUT COMPLICATIONS SNOMED Code(s): 97524805 Comment: - Glucose 180-200's - Continue Lispro sliding scale - Continue to hold metformin and glipizide - Adjust to add on mealtime insulin starting tomorrow. (3) HTN (hypertension) Current Visit: Yes Status: Acute Code(s): I10 - ESSENTIAL (PRIMARY) HYPERTENSION SNOMED Code(s): 29776507 Comment: - Mostly normotensive, SBP 110-140's - Goal SBP 140-160 - Continue Amlodipine 5 mg and PRN Hydralazine (4) Ventricular tachycardia Current Visit: Yes Status: Acute Code(s): I47.2 - VENTRICULAR TACHYCARDIA SNOMED Code(s): 80706234 Comment: - Had 8 beats overnight on 10/19/18 - Continue to monitor on tele - Continue Dofetilide - Optimize electrolytes, Monomorphic, no changes recommended by superintendent tests. (5) Atrial fibrillation Current Visit: Yes Status: Chronic Code(s): I48.91 - UNSPECIFIED ATRIAL FIBRILLATION SNOMED Code(s): 85239430 Comment: - Afib with RVR vs possibly AVNRT on tele today. - Heart rate near 100 with pacing and no discernable P waves - Continue dofetilide - Discussed with outpatient superintendent tests who recommended against cardioversion, to continue dofetilide, and rate control with metoprolol - Off Aspirin and Eliquis in the setting of hemorrhagic CVA (6) Chronic systolic (congestive) heart failure Current Visit: Yes Status: Chronic Code(s): I50.22 - CHRONIC SYSTOLIC ( CONGESTIVE) HEART FAILURE SNOMED Code(s): 268314507 Comment: - No signs of acute diastolic CHF exacerbation at this time - Echo from 07/02 showed EF 50-55% with mild-moderate LV hypertrophy, however has previously had severely reduced EF (20-25% in 2015) - Not currently on diuretics - Daily weights and strict I+O's (7) Iron deficiency anemia Current Visit: Yes Status: Chronic Code(s): D50.9 - IRON DEFICIENCY ANEMIA, UNSPECIFIED SNOMED Code(s): 96379061 Comment: - Continue ferrous sulfate (8) Ulcerative colitis Current Visit: No Status: Acute Code(s): K51.90 - ULCERATIVE COLITIS, UNSPECIFIED, WITHOUT COMPLICATIONS SNOMED Code(s): 76583921 Comment: - Not in exacerbation - Cont Balsalazide. (9) DVT prophylaxis Current Visit: Yes Status: Acute Code(s): UUV3122 - SNOMED Code(s): 154729539 Comment: - Pharmacological prophylaxis contraindicated in the setting of hemorrhagic CVA - SCDs only (10) DNR (do not resuscitate) Current Visit: Yes Status: Acute Status and Disposition: Inpatient. Suspect she will need RIK at discharge.
[2018-10-21] MEDS: Atorvastatin* 80 MG TAB PO SCH (18:06)
[2018-10-22] MEDS: levETIRAcetam 500 MG IVPREMIX* 500 MG/100 ML BAG IV SCH (03:58)
[2018-10-22] MEDS: Levothyroxine TAB* 25 MCG TAB PO SCH (06:22)
[2018-10-22 07:31] LABS: BUN/Creatinine Ratio 21.1 (8-20); EGFR African American 67.6 (>60); EGFR Non-African American 55.9 (>60); Magnesium 2.1 mg/dL (1.9-2.7); Potassium 4.3 mmol/L (3.5-5.0)
[2018-10-22] MEDS: Ferrous Sulfate TAB* 325 MG PO SCH (09:05)
[2018-10-22] MEDS: Pantoprazole TAB * 40 MG TAB PO SCH (09:05)
[2018-10-22] MEDS: Docusate CAP* 100 MG PO SCH ×2 (09:05→21:37)
[2018-10-22] MEDS: amLODIPine TAB* 5 MG PO SCH (09:06)
[2018-10-22] MEDS: Dofetilide CAP* 125 MCG PO SCH ×2 (09:07→21:37)
[2018-10-22] MEDS: Metoprolol Tartrate TAB* 25 MG PO SCH ×2 (09:07→21:37)
[2018-10-22] MEDS: BALSALAZIDE SODIUM 750 MG PO SCH ×2 (09:09→21:38)
[2018-10-22] MEDS: Insulin LISPRO* 1 UNITS UNIT SUBCUT SCH ×7 (09:13→21:40)
--- NOTE | 2018-10-22 13:47 | PN ---
Subjective Date of Service: 10/22/18 Length of Stay: 7 Days Neurology is following for stroke. Interval History: She seems more drowsy and gibberish after the levetiracetam according to the bedside nurse. Before she received the levetiracetam, she was communicating better with the bedside aide. She denied any headache or visual disturbance. She denied any paresthesia. She has no appetite and does not want to try her breakfast. Review of Systems: Denied CP, SOB, or palpitations. Family History: Unchanged from Admission Social History: Unchanged from Admission Past Medical History: Unchanged from Admission Objective Active Medications: Acetaminophen (Tylenol Tab*) 650 mg PO Q6H PRN PRN Reason: FEVER/HEADACHE Last Admin: 10/18/18 16:50 Dose: 650 mg Amlodipine Besylate (Norvasc Tab*) 5 mg PO DAILY [facility] Last Admin: 10/22/18 09:06 Dose: 5 mg Atorvastatin Calcium (Lipitor*) 80 mg PO DAILY@1700 [facility] Last Admin: 10/21/18 18:06 Dose: 80 mg Balsalazide (Colazal Cap(Nf)) 1,500 mg PO BID [facility]; Protocol Last Admin: 10/22/18 09:09 Dose: 1,500 mg Dextrose (D50w Syringe 50 Ml*) 12.5 gm IV PUSH .FOR FS < 60 - SS PRN PRN Reason: FS < 60 Docusate Sodium (Colace Cap*) 100 mg PO BID [facility] Last Admin: 10/22/18 09:05 Dose: 100 mg Dofetilide (Tikosyn Cap*) 125 mcg PO BID [facility] Last Admin: 10/22/18 09:07 Dose: 125 mcg Ferrous Sulfate (Ferrous Sulfate Tab*) 325 mg PO DAILY [facility] Last Admin: 10/22/18 09:05 Dose: 325 mg Hydralazine HCl (Apresoline Iv*) 5 mg IV SLOW PU Q6H PRN PRN Reason: HTN Last Admin: 10/17/18 03:48 Dose: 5 mg Insulin Human Lispro (Humalog*) 5 units SUBCUT AC [facility] Last Admin: 10/22/18 12:41 Dose: 5 units Insulin Human Lispro (Humalog*) 0 units SUBCUT ACHS [facility]; Protocol Last Admin: 10/22/18 12:42 Dose: 4 units Levothyroxine Sodium (Synthroid Tab*) 12.5 mcg PO DAILY@0600 [facility] Last Admin: 10/22/18 06:22 Dose: 12.5 mcg Magnesium Hydroxide (Milk Of Magnesia Liq*) 30 ml PO Q6H PRN PRN Reason: CONSTIPATION Metoprolol Tartrate (Lopressor Tab*) 50 mg PO BID [facility] Last Admin: 10/22/18 09:07 Dose: 50 mg Pantoprazole Sodium (Protonix Tab*) 40 mg PO DAILY [facility] Last Admin: 10/22/18 09:05 Dose: 40 mg Senna (Senokot Tab*) 2 tab PO BEDTIME PRN PRN Reason: CONSTIPATION Trimethobenzamide HCl (Tigan Cap*) 300 mg PO Q8H PRN PRN Reason: NAUSEA Trimethobenzamide HCl (Tigan Im*) 200 mg IM Q8HR PRN PRN Reason: NAUSEA Last Admin: 10/22/18 10:07 Dose: 200 mg Vital Signs 10/21/18 10/21/18 10/21/18 15:09 19:22 20:00 Temperature 97.6 F 97.2 F Pulse Rate 102 108 Respiratory 16 16 16 Rate Blood Pressure 133/73 141/69 (mmHg) O2 Sat by Pulse 98 97 Oximetry 10/21/18 10/22/18 10/22/18 23:44 03:40 07:34 Temperature 97.6 F 97.9 F Pulse Rate 107 106 109 Respiratory 16 18 Rate Blood Pressure 126/55 122/57 117/75 (mmHg) O2 Sat by Pulse 94 93 99 Oximetry 10/22/18 10/22/18 10/22/18 07:35 08:00 08:31 Temperature Pulse Rate 104 109 Respiratory 16 16 Rate Blood Pressure 117/75 134/74 (mmHg) O2 Sat by Pulse 99 96 Oximetry 10/22/18 10/22/18 09:40 10:40 Temperature Pulse Rate 105 108 Respiratory 16 Rate Blood Pressure 114/65 83/46 (mmHg) O2 Sat by Pulse 98 98 Oximetry Intake and Output Last 24 Hours 10/20/18 10/21/18 10/22/18 10/23/18 06:59 06:59 06:59 06:59 Intake Total 820 50 Output Total 1800 0 Balance -980 0 50 Weight 164 lb 8 oz 162 lb 3.2 oz 154 lb 1.6 oz Intake: Oral 820 50 Output: [place] 1800 0 Liquid Stool 0 Other: # Bowel Movements 1 1 1 Estimated Stool Amount Small Medium Medium Oxygen Devices in Use Now: None Neurology Exam: General: Ill appearing elderly female in no acute distress. Resting comfortable. HEENT: Normocephalic/atraumatic, sclera anicteric, mucous membranes moist Neck: Supple Chest: Clear to auscultation bilaterally Cardiovascular: Regular rate and rhythm without murmurs, rubs, gallops Extremities: No clubbing, cyanosis, or edema Neurological Findings: Alert to self, but not place or time. She did recognize her brother but not son at bedside. Speech: mild spastic dysarthria. Cranial Nerve: PERRL, EOM-I, mild left facial droop. Motor: she moves all four limbs to command with mild weakness on the right graded as 4/5 throughout. She had a mild pronator drift on the right. Sensation: intact to LT/PP bilaterally upper and lower extremities Deep Tendon Reflex: 2+ symmetric in the upper/lower extremities, Babinski - down going Finger to nose, rapid alternating movements intact without tremor, no dysdiadochokinesia Gait: did not ambulate today due to increase confusion. Result Diagrams: 10/21/18 10:45 10/22/18 06:46 Microbiology and Other Data: Microbiology 10/15/18 15:12 Nasal Screen MRSA (PCR) - Final Nasal Mrsa Not Detected Assessment/Plan 1. Subacute-chronic left [employer]ISH[employer] vascular territory ischemic infarct with hemorrhagic conversion 2. Acute encephalopathy with waxing and waning delirium related to medications, stroke, or hospitalization induced. Recommendations: - Reduced atorvastatin to 40 mg nightly. High dose statin therapy can cause cognitive decline and increase risk for ICH. - She is not a candidate for anticoagulation therapy at this time. However, if she continues to improve clinically, and a repeat CT head shows resolution of the hemorrhagic infarct, we may be able to consider starting coumadin with close monitoring of the INR and having a lower range of therapeutic level (INR 2 -<2.5). - If she continues to show clinical improvement, We will repeat a CT head the end of the week before restarting aspirin 81 mg daily. - Reduced levetiracetam to 250 mg twice daily. If EEG shows seizures or epileptiform discharges, we may need to keep her on this dose, or the previous high dose. If EEG shows no epileptiform abnormalities, I will continue to wean off levetiracetam within the next 3 days (250/250 x 1 day, 250 mg on Friday, then discontinue). - Neuro checks every 4 hours - Continue supportive care - PT/OT treatments Time spent: 20 minutes.
[2018-10-22] MEDS ORDERED: Digoxin IV* 0.5 MG/2 ML AMP (0.25 MG/ML) IV SLOW PU ONE (15:44)
--- NOTE | 2018-10-22 15:48 | PN ---
Subjective Date of Service: 10/22/18 Interval History: Patient is feeling like she has less energy than yesterday. Patient feels as if she has improving strength, but just feels very tired. Patient denies palpitations, CP, SOB, F/C, dysuria, abdominal pain, or other pain. Family History: Unchanged from Admission Social History: Unchanged from Admission Past Medical History: Unchanged from Admission Objective Active Medications: Acetaminophen (Tylenol Tab*) 650 mg PO Q6H PRN PRN Reason: FEVER/HEADACHE Last Admin: 10/18/18 16:50 Dose: 650 mg Amlodipine Besylate (Norvasc Tab*) 5 mg PO DAILY [facility] Last Admin: 10/22/18 09:06 Dose: 5 mg Atorvastatin Calcium (Lipitor*) 40 mg PO DAILY@1700 [facility] Balsalazide (Colazal Cap(Nf)) 1,500 mg PO BID [facility]; Protocol Last Admin: 10/22/18 09:09 Dose: 1,500 mg Dextrose (D50w Syringe 50 Ml*) 12.5 gm IV PUSH .FOR FS < 60 - SS PRN PRN Reason: FS < 60 Docusate Sodium (Colace Cap*) 100 mg PO BID [facility] Last Admin: 10/22/18 09:05 Dose: 100 mg Dofetilide (Tikosyn Cap*) 125 mcg PO BID [facility] Last Admin: 10/22/18 09:07 Dose: 125 mcg Ferrous Sulfate (Ferrous Sulfate Tab*) 325 mg PO DAILY [facility] Last Admin: 10/22/18 09:05 Dose: 325 mg Hydralazine HCl (Apresoline Iv*) 5 mg IV SLOW PU Q6H PRN PRN Reason: HTN Last Admin: 10/17/18 03:48 Dose: 5 mg Insulin Human Lispro (Humalog*) 5 units SUBCUT AC [facility] Last Admin: 10/22/18 12:41 Dose: 5 units Insulin Human Lispro (Humalog*) 0 units SUBCUT ACHS [facility]; Protocol Last Admin: 10/22/18 12:42 Dose: 4 units Levetiracetam (Keppra Tab*) 250 mg PO BID [facility] Levothyroxine Sodium (Synthroid Tab*) 12.5 mcg PO DAILY@0600 [facility] Last Admin: 10/22/18 06:22 Dose: 12.5 mcg Magnesium Hydroxide (Milk Of Magnesia Liq*) 30 ml PO Q6H PRN PRN Reason: CONSTIPATION Metoprolol Tartrate (Lopressor Tab*) 50 mg PO BID [facility] Last Admin: 10/22/18 09:07 Dose: 50 mg Pantoprazole Sodium (Protonix Tab*) 40 mg PO DAILY [facility] Last Admin: 10/22/18 09:05 Dose: 40 mg Senna (Senokot Tab*) 2 tab PO BEDTIME PRN PRN Reason: CONSTIPATION Trimethobenzamide HCl (Tigan Cap*) 300 mg PO Q8H PRN PRN Reason: NAUSEA Trimethobenzamide HCl (Tigan Im*) 200 mg IM Q8HR PRN PRN Reason: NAUSEA Last Admin: 10/22/18 10:07 Dose: 200 mg Vital Signs - 8 hr 10/22/18 10/22/18 10/22/18 08:00 08:31 09:40 Pulse Rate 109 105 Respiratory 16 Rate Blood Pressure 134/74 114/65 (mmHg) O2 Sat by Pulse 96 98 Oximetry 10/22/18 10:40 Pulse Rate 108 Respiratory 16 Rate Blood Pressure 83/46 (mmHg) O2 Sat by Pulse 98 Oximetry Oxygen Devices in Use Now: None Appearance: Patient is an 83yo female who appears stated age and is sitting in the bed in [facility]. Eyes: No Scleral Icterus, PERRLA Ears/Nose/Mouth/Throat: NL Teeth, Lips, Gums, Clear Oropharnyx, - - Dry Mucus Membranes Neck: NL Appearance and Movements; NL JVP, Trachea Midline Respiratory: Symmetrical Chest Expansion and Respiratory Effort, Clear to Auscultation Cardiovascular: NL Sounds; No Murmurs; No JVD, - - Tachycardic, trace edema. Abdominal: NL Sounds; No Tenderness; No Distention, No Hepatosplenomegaly Lymphatic: No Cervical Adenopathy Extremities: No Clubbing, Cyanosis Skin: No Rash or Ulcers, No Nodules or Sclerosis Neurological: NL Sensation, - Result Diagrams: 10/21/18 10:45 10/22/18 06:46 Microbiology and Other Data: Microbiology 10/15/18 15:12 Nasal Screen MRSA (PCR) - Final Nasal Mrsa Not Detected Assess/Plan/Problems-Billing 1. Subacute-chronic left LINING SCRUBBER vascular territory ischemic infarct with hemorrhagic conversion 2. Acute encephalopathy with waxing and waning delirium related to medications, stroke, or hospitalization induced. Recommendations: - Reduced atorvastatin to 40 mg nightly. High dose statin therapy can cause cognitive decline and increase risk for ICH. - She is not a candidate for anticoagulation therapy at this time. However, if she continues to improve clinically, and a repeat CT head shows resolution of the hemorrhagic infarct, we may be able to consider starting coumadin with close monitoring of the INR and having a lower range of therapeutic level (INR 2 -<2.5). - If she continues to show clinical improvement, We will repeat a CT head the end of the week before restarting aspirin 81 mg daily. - Reduced levetiracetam to 250 mg twice daily. If EEG shows seizures or epileptiform discharges, we may need to keep her on this dose, or the previous high dose. If EEG shows no epileptiform abnormalities, I will continue to wean off levetiracetam within the next 3 days (250/250 x 1 day, 250 mg on Friday, then discontinue). - Neuro checks every 4 hours - Continue supportive care - PT/OT treatments Time spent: 20 minutes. - Patient Problems (1) Hemorrhagic cerebrovascular accident (CVA) Current Visit: Yes Status: Acute Code(s): I61.9 - NONTRAUMATIC INTRACEREBRAL HEMORRHAGE, UNSPECIFIED SNOMED Code(s): 155370765 Comment: - Ischemic CVA earlier this month, now with hemorrhagic conversion in the setting of Aspirin and Eliquis use - S/P KCentra and platelet transfusion - F/U CT brain shows bleeding is stable, despite some mental status fluctuation - Repeat CT tomorrow per neurology and may then restart ASA. - Neurosurgery and neurology input appreciated - Continue seizure prophylaxis with Keppra (for 1 week), will stop tomorrow - Goal SBP 140-160 - Continue neuro checks - PT/OT/Speech (2) Diabetes Current Visit: Yes Status: Acute Code(s): E11.9 - TYPE 2 DIABETES MELLITUS WITHOUT COMPLICATIONS SNOMED Code(s): 84325807 Comment: - Glucose 200-250s - Continue Lispro sliding scale - Continue to hold metformin and glipizide - Adjust to add on mealtime insulin and adjust recursively. (3) HTN (hypertension) Current Visit: Yes Status: Acute Code(s): I10 - ESSENTIAL (PRIMARY) HYPERTENSION SNOMED Code(s): 73630877 Comment: - Mostly normotensive, SBP 100-140's - Stop Amlodipine 5 mg and PRN Hydralazine - Metoprolol 50mg PO BID, Borderline hypotensive (4) Ventricular tachycardia Current Visit: Yes Status: Acute Code(s): I47.2 - VENTRICULAR TACHYCARDIA SNOMED Code(s): 65285762 Comment: - Had 8 beats overnight on 10/19/18 - Continue to monitor on tele - Continue Dofetilide - Optimize electrolytes, Monomorphic, no changes recommended by fire warden. (5) Atrial fibrillation Current Visit: Yes Status: Chronic Code(s): I48.91 - UNSPECIFIED ATRIAL FIBRILLATION SNOMED Code(s): 09705252 Comment: - Afib with RVR vs possibly AVNRT on tele, not likely in AVNRT based on tele review - Heart rate near 100 with pacing and no discernable P waves - Continue dofetilide - Discussed with outpatient fire warden who recommended against cardioversion, to continue dofetilide, and rate control with metoprolol - Off Aspirin and Eliquis in the setting of hemorrhagic CVA - Resume aspirin tomorrow - Give Digoxin now, check level in the AM and consider cardiology consult if no response. (6) Chronic systolic (congestive) heart failure Current Visit: Yes Status: Chronic Code(s): I50.22 - CHRONIC SYSTOLIC ( CONGESTIVE) HEART FAILURE SNOMED Code(s): 647248202 Comment: - No signs of acute diastolic CHF exacerbation at this time - Echo from 07/02 showed EF 50-55% with mild-moderate LV hypertrophy, however has previously had severely reduced EF (20-25% in 2015) - Not currently on diuretics - Daily weights and strict I+O's (7) Iron deficiency anemia Current Visit: Yes Status: Chronic Code(s): D50.9 - IRON DEFICIENCY ANEMIA, UNSPECIFIED SNOMED Code(s): 43310419 Comment: - Continue ferrous sulfate - Excellent response (8) Ulcerative colitis Current Visit: No Status: Acute Code(s): K51.90 - ULCERATIVE COLITIS, UNSPECIFIED, WITHOUT COMPLICATIONS SNOMED Code(s): 20893339 Comment: - Not in exacerbation - Cont Balsalazide. (9) DVT prophylaxis Current Visit: Yes Status: Acute Code(s): DGE0476 - SNOMED Code(s): 983531869 Comment: - Pharmacological prophylaxis contraindicated in the setting of hemorrhagic CVA - SCDs only (10) DNR (do not resuscitate) Current Visit: Yes Status: Acute Status and Disposition: Inpatient. Suspect she will need RIK at discharge.
--- NOTE | 2018-10-22 16:23 | EEG ---
ELECTROENCEPHALOGRAPHY: DATE OF STUDY: 10/22/18 - ROOM #449 DATE READ: 10/22/18 ORDERED BY: Dr. Justa Okeefe. MEDICATIONS: 1. Colazal. 2. Humalog. 3. Levetiracetam. 4. Atorvastatin. 5. Docusate. 6. Dofetilide. 7. Metoprolol. 8. Levothyroxine. 9. Amlodipine. 10. Ferrous sulfate. 11. Pantoprazole. 12. Acetaminophen. 13. Hydralazine. 14. Milk of magnesium. 15. Senna. 16. Trimethobenzamide. INDICATION: Mrs. Sonal Anderson is an 83-year-old female with history of left MIG TIG WELDER vascular territory ischemic stroke with hemorrhagic conversion, with intermittent delirium. She is on levetiracetam. This EEG was obtained to evaluate for epileptiform abnormalities and to see if we can slowly wean off her levetiracetam without the risk of seizures. CLINICAL STATE: Waking. REPORT: The background lacked organization of clearly defined anterior- posterior voltage and frequency gradients. There was a poorly defined posterior dominant rhythm of about 7 Hz which was asymmetric and predominantly seen over the left hemisphere. The background consisted mostly of diffuse medium amplitude polymorphic 3-7 Hz delta and theta slowing with superimposed diffuse 1-2 Hz slowing that lasted 1-5 seconds. There was no clinical correlation with the diffuse slowing. Hyperventilation and photic stimulation were not performed. Single electrode EKG showed a regular rhythm with a rate of 90 beats per minute. CLINICAL IMPRESSION: This is an abnormal EEG due to the presence of diffuse reactive slowing. These findings are suggestive of a nonspecific mild-moderate diffuse encephalopathy. There was no evidence of epileptiform discharges or electrographic seizures. [id number] #: [id number] [facility]
[2018-10-22] MEDS: Atorvastatin* 40 MG TAB PO SCH (17:25)
[2018-10-22] MEDS: levETIRAcetam TAB* 500 MG PO SCH (21:38)
[2018-10-23] MEDS: Levothyroxine TAB* 25 MCG TAB PO SCH (05:25)
[2018-10-23 07:04] LABS: BUN/Creatinine Ratio 21.9 (8-20); EGFR African American 60.3 (>60); EGFR Non-African American 49.8 (>60); Magnesium 1.9 mg/dL (1.9-2.7); Potassium 4.3 mmol/L (3.5-5.0)
[2018-10-23 07:39] LABS: Digoxin 1.1 ng/ml (0.8-2.0)
[2018-10-23 08:08] LABS: ABS Basophils 0 10^3/ul (0-0.2); ABS Eosinophils 0.2 10^3/ul (0-0.6); ABS Monocytes 0.9 10^3/ul (0-0.8); ABS Neutrophils 6.1 10^3/ul (1.5-7.7); ABS Nucleated RBC 0 10^3/ul; Eosinophil % 2.2 %; Hematocrit 34 % (35-47); Hemoglobin 11.6 g/dl (12.0-16.0); Mean Corpuscular HGB Conc 34 g/dl (31-36); Mean Corpuscular Hemoglobin 30 pg (27-31); Mean Corpuscular Volume 87 fL (80-97); Mean Platelet Volume 8.6 fL (7.4-10.4); Nucleated Red Blood Cells % 0.1; Platelet Count 183 10^3/ul (150-450); Red Cell Distribution Width 19 % (10.5-15); White Blood Count 9.2 10^3/ul (3.5-10.8)
[2018-10-23] MEDS ORDERED: NS 0.9% 1000 ML** 1,000 ML IV SCH (09:15)
[2018-10-23] MEDS ORDERED: Digoxin IV* 0.5 MG/2 ML AMP (0.25 MG/ML) IV SLOW PU ONE (09:45)
[2018-10-23] MEDS ORDERED: Metoprolol Tartrate TAB* 25 MG PO SCH ×2 (10:00→11:30)
[2018-10-23] MEDS: Insulin LISPRO* 1 UNITS UNIT SUBCUT SCH ×7 (10:18→20:12)
[2018-10-23] MEDS: Pantoprazole TAB * 40 MG TAB PO SCH (10:19)
[2018-10-23] MEDS: Dofetilide CAP* 125 MCG PO SCH (10:19)
[2018-10-23] MEDS: levETIRAcetam TAB* 500 MG PO SCH ×2 (10:19→20:02)
[2018-10-23] MEDS: Ferrous Sulfate TAB* 325 MG PO SCH (10:19)
[2018-10-23] MEDS: BALSALAZIDE SODIUM 750 MG PO SCH ×2 (10:20→20:02)
[2018-10-23] MEDS: Docusate CAP* 100 MG PO SCH ×2 (10:21→20:02)
[2018-10-23] MEDS: Metoprolol Tartrate TAB* 25 MG PO SCH (10:35)
--- NOTE | 2018-10-23 13:25 | PN ---
Subjective Date of Service: 10/23/18 Interval History: Patient is feeling tired today. Patient denies palpitations, CP, SOB, abdominal pain, dysuria, presyncope, diarrhea, or other pain. Family History: Unchanged from Admission Social History: Unchanged from Admission Past Medical History: Unchanged from Admission Objective Active Medications: Acetaminophen (Tylenol Tab*) 650 mg PO Q6H PRN PRN Reason: FEVER/HEADACHE Last Admin: 10/18/18 16:50 Dose: 650 mg Atorvastatin Calcium (Lipitor*) 40 mg PO DAILY@1700 [facility] Last Admin: 10/22/18 17:25 Dose: 40 mg Balsalazide (Colazal Cap(Nf)) 1,500 mg PO BID [facility]; Protocol Last Admin: 10/23/18 10:20 Dose: 1,500 mg Dextrose (D50w Syringe 50 Ml*) 12.5 gm IV PUSH .FOR FS < 60 - SS PRN PRN Reason: FS < 60 Docusate Sodium (Colace Cap*) 100 mg PO BID [facility] Last Admin: 10/23/18 10:21 Dose: 100 mg Dofetilide (Tikosyn Cap*) 125 mcg PO BID [facility] Last Admin: 10/23/18 10:19 Dose: 125 mcg Ferrous Sulfate (Ferrous Sulfate Tab*) 325 mg PO DAILY [facility] Last Admin: 10/23/18 10:19 Dose: 325 mg Hydralazine HCl (Apresoline Iv*) 5 mg IV SLOW PU Q6H PRN PRN Reason: HTN Last Admin: 10/17/18 03:48 Dose: 5 mg Sodium Chloride (Ns 0.9% 1000 Ml) 1,000 mls @ 75 mls/hr IV PER RATE [facility] Insulin Glargine (Lantus(*)) 5 units SUBCUT Q24H [facility] Insulin Human Lispro (Humalog*) 5 units SUBCUT AC [facility] Last Admin: 10/23/18 13:12 Dose: 5 units Insulin Human Lispro (Humalog*) 0 units SUBCUT ACHS [facility]; Protocol Last Admin: 10/23/18 13:12 Dose: 4 units Levetiracetam (Keppra Tab*) 250 mg PO BID [facility] Last Admin: 10/23/18 10:19 Dose: 250 mg Levothyroxine Sodium (Synthroid Tab*) 12.5 mcg PO DAILY@0600 [facility] Last Admin: 10/23/18 05:25 Dose: 12.5 mcg Magnesium Hydroxide (Milk Of Magnesia Liq*) 30 ml PO Q6H PRN PRN Reason: CONSTIPATION Metoprolol Tartrate (Lopressor Tab*) 25 mg PO Q6H [facility] Last Admin: 10/23/18 11:57 Dose: 25 mg Pantoprazole Sodium (Protonix Tab*) 40 mg PO DAILY [facility] Last Admin: 10/23/18 10:19 Dose: 40 mg Senna (Senokot Tab*) 2 tab PO BEDTIME PRN PRN Reason: CONSTIPATION Trimethobenzamide HCl (Tigan Cap*) 300 mg PO Q8H PRN PRN Reason: NAUSEA Trimethobenzamide HCl (Tigan Im*) 200 mg IM Q8HR PRN PRN Reason: NAUSEA Last Admin: 10/22/18 10:07 Dose: 200 mg Vital Signs - 8 hr 10/23/18 10/23/18 10/23/18 07:28 08:00 10:16 Temperature 97.9 F Pulse Rate 114 118 Respiratory 16 20 Rate Blood Pressure 136/62 (mmHg) O2 Sat by Pulse 95 Oximetry 10/23/18 12:09 Temperature 97.4 F Pulse Rate 114 Respiratory 20 Rate Blood Pressure 109/56 (mmHg) O2 Sat by Pulse 97 Oximetry Oxygen Devices in Use Now: None Appearance: Patient is an 83yo female who appears stated age and is sitting in the bed in [facility]. Eyes: No Scleral Icterus, PERRLA Ears/Nose/Mouth/Throat: NL Teeth, Lips, Gums, Clear Oropharnyx, Mucous Membranes Moist Neck: NL Appearance and Movements; NL JVP, Trachea Midline Respiratory: Symmetrical Chest Expansion and Respiratory Effort, Clear to Auscultation Cardiovascular: NL Sounds; No Murmurs; No JVD, No Edema, - - Tachycardia, regular rhythm, Abdominal: NL Sounds; No Tenderness; No Distention, No Hepatosplenomegaly Lymphatic: No Cervical Adenopathy Extremities: No Edema, No Clubbing, Cyanosis Skin: No Rash or Ulcers, No Nodules or Sclerosis Neurological: Alert and Oriented x 3 Result Diagrams: 10/23/18 06:29 10/23/18 06:29 Microbiology and Other Data: Microbiology 10/15/18 15:12 Nasal Screen MRSA (PCR) - Final Nasal Mrsa Not Detected Assess/Plan/Problems-Billing 1. 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 Acute encephalopathy with waxing and waning delirium related to medications, stroke, or hospitalization induced. Recommendations: - Reduced atorvastatin to 40 mg nightly. High dose statin therapy can cause cognitive decline and increase risk for ICH. - She is not a candidate for anticoagulation therapy at this time. However, if she continues to improve clinically, and a repeat CT head shows resolution of the hemorrhagic infarct, we may be able to consider starting coumadin with close monitoring of the INR and having a lower range of therapeutic level (INR 2 -<2.5). - If she continues to show clinical improvement, We will repeat a CT head the end of the week before restarting aspirin 81 mg daily. - Reduced levetiracetam to 250 mg twice daily. If EEG shows seizures or epileptiform discharges, we may need to keep her on this dose, or the previous high dose. If EEG shows no epileptiform abnormalities, I will continue to wean off levetiracetam within the next 3 days (250/250 x 1 day, 250 mg on Friday, then discontinue). - Neuro checks every 4 hours - Continue supportive care - PT/OT treatments Time spent: 20 minutes. - Patient Problems (1) Hemorrhagic cerebrovascular accident (CVA) Current Visit: Yes Status: Acute Code(s): I61.9 - NONTRAUMATIC INTRACEREBRAL HEMORRHAGE, UNSPECIFIED SNOMED Code(s): 059679828 Comment: - Ischemic CVA earlier this month, now with hemorrhagic conversion in the setting of Aspirin and Eliquis use - S/P KCentra and platelet transfusion - F/U CT brain shows bleeding is stable, despite some mental status fluctuation - Repeat CT from today shows continued evolution of bleed, Restarted ASA with concurrence of both cardiac and neuro - Neurosurgery and neurology input appreciated - Continue seizure prophylaxis with Keppra (for 1 week), will stop friday - Goal SBP 110-130 to keep perfusion with minimal risk of bleeding - Continue neuro checks - PT/OT/Speech (2) Atrial fibrillation Current Visit: Yes Status: Chronic Code(s): I48.91 - UNSPECIFIED ATRIAL FIBRILLATION SNOMED Code(s): 64994227 Comment: - Afib with RVR vs possibly AVNRT on tele, not likely in AVNRT based on tele review - Appreciate cardiology consult - Patient appears to currently be in atypical flutter with HR 110s-120s - Continue dofetilide - Discussed with outpatient inside sales associate and inpatient cardiology who recommend against cardioversion, to continue dofetilide, and rate control with metoprolol and digoxin - Resume aspirin - Loaded with Digoxin with no response to HR, continue daily (3) Diabetes Current Visit: Yes Status: Acute Code(s): E11.9 - TYPE 2 DIABETES MELLITUS WITHOUT COMPLICATIONS SNOMED Code(s): 05059734 Comment: - Glucose 150s-200 - Continue Lispro sliding scale - Continue to hold metformin and glipizide - Adjust to add on mealtime insulin and adjust recursively. - Add low dose lantus for morning hypoglycemia. (4) HTN (hypertension) Current Visit: Yes Status: Acute Code(s): I10 - ESSENTIAL (PRIMARY) HYPERTENSION SNOMED Code(s): 91812339 Comment: - Mostly normotensive, SBP 100-140's - Metoprolol 25mg PO Q6H - Goal SBP 110-130 (5) Ventricular tachycardia Current Visit: Yes Status: Acute Code(s): I47.2 - VENTRICULAR TACHYCARDIA SNOMED Code(s): 82689833 Comment: - Had 8 beats overnight on 10/19/18 - Continue to monitor on tele - Continue Dofetilide - Optimize electrolytes, Monomorphic, no changes recommended by inside sales associate. (6) Chronic systolic (congestive) heart failure Current Visit: Yes Status: Chronic Code(s): I50.22 - CHRONIC SYSTOLIC ( CONGESTIVE) HEART FAILURE SNOMED Code(s): 510039680 Comment: - No signs of acute diastolic CHF exacerbation at this time - Echo from 07/02 showed EF 50-55% with mild-moderate LV hypertrophy, however has previously had severely reduced EF (20-25% in 2014) - Not currently on diuretics - Daily weights and strict I+O's (7) Iron deficiency anemia Current Visit: Yes Status: Chronic Code(s): D50.9 - IRON DEFICIENCY ANEMIA, UNSPECIFIED SNOMED Code(s): 23890040 Comment: - Continue ferrous sulfate - Excellent response (8) Ulcerative colitis Current Visit: No Status: Acute Code(s): K51.90 - ULCERATIVE COLITIS, UNSPECIFIED, WITHOUT COMPLICATIONS SNOMED Code(s): 94530951 Comment: - Not in exacerbation - Cont Balsalazide. (9) DVT prophylaxis Current Visit: Yes Status: Acute Code(s): CYN6230 - SNOMED Code(s): 299620488 Comment: - Pharmacological prophylaxis contraindicated in the setting of hemorrhagic CVA - SCDs only (10) DNR (do not resuscitate) Current Visit: Yes Status: Acute Status and Disposition: Inpatient. Suspect she will need RIK at discharge.
[2018-10-23] MEDS ORDERED: Insulin GLARGINE(*) 1 UNITS UNIT SUBCUT SCH (14:00)
--- NOTE | 2018-10-23 15:27 | PN ---
Subjective Date of Service: 10/23/18 Length of Stay: 8 Days Neurology is following Mrs. Anderson for stroke. Interval History: She is still confused this morning. She has stool all over her right hand. She does not alert staff when she needs to use the restroom. She is down due to her condition. She denied any headache or visual disturbance. Reviewed the repeat CT head without contrast. There is evolution of hemorrhagic infarction in the left occipital lobe. There is still moderate size hemorrhage in the left occipital region. Review of Systems: Denied CP, SOB, or palpitations. Family History: Unchanged from Admission Social History: Unchanged from Admission Past Medical History: Unchanged from Admission Objective Active Medications: Acetaminophen (Tylenol Tab*) 650 mg PO Q6H PRN PRN Reason: FEVER/HEADACHE Last Admin: 10/18/18 16:50 Dose: 650 mg Atorvastatin Calcium (Lipitor*) 40 mg PO DAILY@1700 [facility] Last Admin: 10/22/18 17:25 Dose: 40 mg Balsalazide (Colazal Cap(Nf)) 1,500 mg PO BID [facility]; Protocol Last Admin: 10/23/18 10:20 Dose: 1,500 mg Dextrose (D50w Syringe 50 Ml*) 12.5 gm IV PUSH .FOR FS < 60 - SS PRN PRN Reason: FS < 60 Digoxin (Lanoxin Tab*) 0.25 mg PO 1700 [facility] Docusate Sodium (Colace Cap*) 100 mg PO BID [facility] Last Admin: 10/23/18 10:21 Dose: 100 mg Ferrous Sulfate (Ferrous Sulfate Tab*) 325 mg PO DAILY [facility] Last Admin: 10/23/18 10:19 Dose: 325 mg Hydralazine HCl (Apresoline Iv*) 5 mg IV SLOW PU Q6H PRN PRN Reason: HTN Last Admin: 10/17/18 03:48 Dose: 5 mg Sodium Chloride (Ns 0.9% 1000 Ml) 1,000 mls @ 75 mls/hr IV PER RATE [facility] Insulin Glargine (Lantus(*)) 5 units SUBCUT Q24H [facility] Insulin Human Lispro (Humalog*) 5 units SUBCUT AC [facility] Last Admin: 10/23/18 13:12 Dose: 5 units Insulin Human Lispro (Humalog*) 0 units SUBCUT ACHS [facility]; Protocol Last Admin: 10/23/18 13:12 Dose: 4 units Levetiracetam (Keppra Tab*) 250 mg PO BID [facility] Last Admin: 10/23/18 10:19 Dose: 250 mg Levothyroxine Sodium (Synthroid Tab*) 12.5 mcg PO DAILY@0600 [facility] Last Admin: 10/23/18 05:25 Dose: 12.5 mcg Magnesium Hydroxide (Milk Of Magnesia Liq*) 30 ml PO Q6H PRN PRN Reason: CONSTIPATION Metoprolol Tartrate (Lopressor Iv*) 2.5 mg IV Q6H PRN PRN Reason: BLOOD PRESSURE Pantoprazole Sodium (Protonix Tab*) 40 mg PO DAILY [facility] Last Admin: 10/23/18 10:19 Dose: 40 mg Senna (Senokot Tab*) 2 tab PO BEDTIME PRN PRN Reason: CONSTIPATION Trimethobenzamide HCl (Tigan Cap*) 300 mg PO Q8H PRN PRN Reason: NAUSEA Trimethobenzamide HCl (Tigan Im*) 200 mg IM Q8HR PRN PRN Reason: NAUSEA Last Admin: 10/22/18 10:07 Dose: 200 mg Vital Signs 10/22/18 10/22/18 10/22/18 15:22 17:21 19:22 Temperature 97.3 F 98.3 F Pulse Rate 111 112 110 Respiratory 16 16 Rate Blood Pressure 106/64 119/52 (mmHg) O2 Sat by Pulse 96 95 Oximetry 10/22/18 10/23/18 10/23/18 20:00 00:06 03:43 Temperature 96.7 F 97.5 F Pulse Rate 108 112 Respiratory 16 16 16 Rate Blood Pressure 126/66 133/66 (mmHg) O2 Sat by Pulse 94 97 Oximetry 10/23/18 10/23/18 10/23/18 07:28 08:00 10:16 Temperature 97.9 F Pulse Rate 114 118 Respiratory 16 20 Rate Blood Pressure 136/62 (mmHg) O2 Sat by Pulse 95 Oximetry 10/23/18 12:09 Temperature 97.4 F Pulse Rate 114 Respiratory 20 Rate Blood Pressure 109/56 (mmHg) O2 Sat by Pulse 97 Oximetry Intake and Output Last 24 Hours 10/21/18 10/22/18 10/23/18 10/24/18 06:59 06:59 06:59 06:59 Intake Total 50 50 120 Output Total 0 Balance 0 50 50 120 Weight 162 lb 3.2 oz 154 lb 1.6 oz 155 lb 11.2 oz Intake: Oral 50 50 120 Output: Cortés 0 Other: Estimated Void Large # Bowel Movements 1 1 Estimated Stool Amount Medium Medium # Voids 2 Oxygen Devices in Use Now: None Neurology Exam: General: Ill appearing elderly female in no acute distress. Resting comfortable. HEENT: Normocephalic/atraumatic, sclera anicteric, mucous membranes moist Neck: Supple Chest: Clear to auscultation bilaterally Cardiovascular: Regular rate and rhythm without murmurs, rubs, gallops Extremities: No clubbing, cyanosis, or edema Neurological Findings: Alert to self, but not place or time. Flat affect. Depressed mood. Disoriented. Cooperative. Speech: mild spastic dysarthria. Cranial Nerve: PERRL, EOM-I, right homonymous hemianopsia. Mild left facial droop. Motor: she moves all four limbs to command with mild weakness on the right graded as 4/5 throughout. She had a mild pronator drift on the right. Sensation: intact to LT/PP bilaterally upper and lower extremities Deep Tendon Reflex: 1+ symmetric in the upper/lower extremities, Babinski - down going Finger to nose, rapid alternating movements intact without tremor, no dysdiadochokinesia Gait: did not ambulate today due to increase confusion. Result Diagrams: 10/23/18 06:29 10/23/18 06:29 Microbiology and Other Data: Microbiology 10/15/18 15:12 Nasal Screen MRSA (PCR) - Final Nasal Mrsa Not Detected Assessment/Plan 1. Subacute-chronic left [employer] vascular territory ischemic infarct with hemorrhagic conversion- evolution of infarct seen on most recent CT head which was form today. 2. Acute encephalopathy with waxing and waning delirium related to medications, stroke, and hospitalization induced. Recommendations: - Hold off from restarting any anti-platelet or anticoagulation therapy given the CT head results. Plan to repeat CT head on Friday to make further decision restarting an antithrombotic agent. - Continue weaning off levetiracetam to hopefully improve her cognition. - Neuro checks every 4 hours - Continue supportive care - PT/OT treatments Time spent: 20 minutes. Called Savannah (patient's daughter) at 1520 and left her a message asking her to call me back. Dr. Baugh will be covering the neurology service starting at 5 pm today.
[2018-10-23] MEDS: Atorvastatin* 40 MG TAB PO SCH (16:10)
[2018-10-23] MEDS ORDERED: Digoxin TAB* 0.125 MG PO SCH (17:00)
[2018-10-23] MEDS ORDERED: Metoprolol Tartrate IV* 1 MG/ML 5 ML VIAL IV PRN (17:30)
--- NOTE | 2018-10-23 17:40 | CONS ---
CC: Dr. Vaenssa Gómez; Dr. Morse CARDIOLOGY CONSULTATION NOTE: DATE OF CONSULT: 10/23/18 REFERRING PHYSICIAN: KAYLA Prajapati, of the hospitalist medicine service. REASON FOR CARDIOLOGY CONSULTATION: Heart rate control in patient with recurrent atrial fibrillation while trying to avoid hypoperfusion as thge patient is post stroke. HISTORY OF PRESENT ILLNESS: Ms. Anderson is a pleasant 83-year-old woman with an extensive cardiac and neurological history. The patient herself denies chest pain or palpitations at rest. She also feels that her breathing is good. The patient was admitted to [facility] on 09/25/18 with complaints of headache and slurred speech with a CAT scan that showed ischemic stroke in the left occipital lobe. That was despite being on Xarelto and aspirin. She was changed from Xarelto to Eliquis and then developed a hemorrhagic stroke on 10/15/18 while on PMRU and was readmitted to [facility]. Further history provisions from the patient is limited given her memory impairment, felt related to recent stroke plus/minus Keppra. PAST CARDIAC HISTORY: Includes paroxysmal atrial fibrillation including multiple AF and AFl ablations. She has a [employer] ICD pacemaker. Her transportation design engineer is Dr. Morse of the [employer] system whom she follows with. She has a history also of atypical atrial flutter, coronary artery disease with bypass surgery in the past with reported known 50% left main disease with multiple PCIs and MARY to the RCA and LAD in October 2014 as well as MARY to OM1 on 01/12/15. Moderate cardiomyopathy. In the past, she has had recurrent AF/ AFL resulting in decreased LVEF and moderate- to-severe MR by report. Other past medical history includes hypothyroidism, chronic kidney disease, diabetes, hypertension, ulcerative colitis. The patient also with a history of hyperlipidemia, mitral valve replacement, and anemia.She had been on Tikosyn, which has been discontinued on my advice as we were concerned about chemically cardioverting a patient who is not a candidate for anticoagulation at this time with recent ischemic stroke with hemorrhagic conversion. CURRENT CARDIAC MEDICATIONS: 1. Lipitor 40 mg once a day. 2. Digoxin 0.25 mg once a day. Other medications include: 1. Insulin. 2. Keppra 250 mg p.o. b.i.d. 3. Synthroid 12.5 mcg once a day. 4. Lopressor 2.5 mg IV q.6 hours p.r.n. 5. Senokot p.r.n. ALLERGIES TO MEDICATIONS: Reported as PREDNISONE at high doses. Family history, social history, review of systems unable to obtain from the patient. Apparently, the patient's surrogate decision maker in the event that she is unable to make her own decisions is her son. She is DNR/DNI status. PHYSICAL EXAM: On general exam, she is intermittently confused, but quite pleasant, in no acute distress at rest. Vital Signs: Pulse is 112, blood pressure 109/56, temperature 97.4 degrees Fahrenheit, O2 saturation 97%. HEENT shows the cranium is normocephalic and atraumatic. She has dry mucosal membranes. Neck veins are not distended. There are no carotid bruits. Visible skin is warm and perfused. Affect is appropriate. She appears oriented. Mild kyphoscoliosis on seated back exam. Lungs are clear to auscultation. No wheezes, no rales. Cardiac Exam: S1, S2. Irregular rate controlled. Soft holosystolic murmur heard without radiation. There is no rub or gallop. PMI is nondisplaced. Abdomen: Soft, appears nondistended. Extremities: Without significant edema. Neurological exam appears grossly nonfocal, although again the patient appears quite forgetful and somewhat distracted; however, other neurologists were also consulting on the patient. Pulses appear grossly intact. LABORATORY DATA: Blood work, 9.2, hematocrit 34, platelet count 183. Sodium 135, potassium 4.3, chloride 102, bicarbonate 24, BUN 24, creatinine 1.05, magnesium 1.9. IMPRESSION: Ms. Anderson is a pleasant 83-year-old woman admitted after hemorrhagic conversion of recent ischemic stroke, felt to be contraindicated from using for at least some time anticoagulation. The neurologist did write that in the future they could consider starting her on Coumadin with goal INRs in the 2 to 2.5 range. In any case, the biggest concern is trying to avoid further hypoperfusion. Her heart rate actually appears fairly well controlled in her current atrial fibrillation at average of 112 BPM and she seems asymptomatic. Again, we have stopped Tikosyn because we were concerned about inducing another stroke by chemically cardioverting the patient as she is back in sustained atrial fibrillation. Her heart rate does seem to be responding fairly well to recent digoxin start, which will need to be careful with given her reported chronic kidney disease stage 3. Cardiac boyd, the patient appears fairly well compensated at least at this time. RECOMMENDATIONS: The patient will continue digoxin 0.25 mg po once a day after having received a total of 0.75 mg IV over the past 24 hours. We will discontinue metoprolol other than p.r.n. as concern that her blood pressure does drop quite significantly after she received it and we are concerned about potentiating her stroke by hypoperfusion. Also, she cannot receive anticoagulation at this time, but that can be potentially readdressed in the future in consultation with her neurologist. Tikosyn has been stopped as above. I feel it is reasonable to discontinue telemetry monitoring now given that her heart rate has been well controlled for the past 24 hours with use of digoxin and she has a pacer-ICD cardiac device. Would recommend checking trough digoxin level in 7 to 10 days. The patient should follow up with her primary transportation design engineer, Dr. Morse, following discharge. If the patient were reported to have refractory accelerated heart rates with concomitant congestive heart failure, could consider referral for semi-urgent AV ara ablation, but that does not appear required at this time. The above has been discussed in detail with Mr. Meeks as well. Dear Mr. Stanislaw Meeks, many thanks for asking me to participate in the cardiovascular consultative care of Ms. Anderson. Please do not hesitate to contact me if you have any questions or concerns regarding the patient's cardiovascular consultative care. [id number]/[facility] #: [id number] MTDYong
[2018-10-23] MEDS: Metoprolol Tartrate IV* 1 MG/ML 5 ML VIAL IV SCH ×2 (20:05→23:52)
[2018-10-24] MEDS: Levothyroxine TAB* 25 MCG TAB PO SCH (05:38)
[2018-10-24] MEDS: Metoprolol Tartrate IV* 1 MG/ML 5 ML VIAL IV SCH ×3 (05:39→13:01)
[2018-10-24 08:34] LABS: BUN/Creatinine Ratio 26.3 (8-20); EGFR African American 54.8 (>60); EGFR Non-African American 45.3 (>60); Magnesium 1.9 mg/dL (1.9-2.7); Potassium 4.1 mmol/L (3.5-5.0)
[2018-10-24] MEDS: Insulin LISPRO* 1 UNITS UNIT SUBCUT SCH ×7 (08:56→21:41)
[2018-10-24] MEDS: Docusate CAP* 100 MG PO SCH ×2 (08:57→20:08)
[2018-10-24] MEDS: Ferrous Sulfate TAB* 325 MG PO SCH (08:58)
[2018-10-24] MEDS: levETIRAcetam TAB* 500 MG PO SCH (08:58)
[2018-10-24] MEDS: BALSALAZIDE SODIUM 750 MG PO SCH ×2 (08:59→20:09)
[2018-10-24] MEDS: Pantoprazole TAB * 40 MG TAB PO SCH (09:00)
[2018-10-24] MEDS: Insulin GLARGINE(*) 1 UNITS UNIT SUBCUT SCH (10:22)
--- NOTE | 2018-10-24 10:52 | PN ---
Subjective Date of Service: 10/24/18 Length of Stay: 9 Days Interval History: Records reviewed: She has a history of large left MIRROR PAINTER territory infarction, developed hemorrhagic conversion after anticoagulation was restarted, now off off all anticoagulants, antiplatelets. Initially placed on Keppra for suspected seizures, most recent EEG showed no seizure activity and it was felt that her AMS and agitation was likely multifactorial in nature but could be related to the Keppra as well. Dr. Okeefe has been weaning her off of the Keppra over the last few days. She continues to wax and wane with intermittent confusion and somnolence but no seizure activity reported and no new focal deficits. Review of Telemetry shows some tachycardia, no currrent A.fib Family History: Unchanged from Admission Social History: Unchanged from Admission Past Medical History: Unchanged from Admission Objective Active Medications: Acetaminophen (Tylenol Tab*) 650 mg PO Q6H PRN PRN Reason: FEVER/HEADACHE Last Admin: 10/18/18 16:50 Dose: 650 mg Atorvastatin Calcium (Lipitor*) 40 mg PO DAILY@1700 [facility] Last Admin: 10/23/18 16:10 Dose: 40 mg Balsalazide (Colazal Cap(Nf)) 1,500 mg PO BID [facility]; Protocol Last Admin: 10/24/18 08:59 Dose: 1,500 mg Dextrose (D50w Syringe 50 Ml*) 12.5 gm IV PUSH .FOR FS < 60 - SS PRN PRN Reason: FS < 60 Digoxin (Lanoxin Tab*) 0.125 mg PO 1700 [facility] Docusate Sodium (Colace Cap*) 100 mg PO BID [facility] Last Admin: 10/24/18 08:57 Dose: 100 mg Ferrous Sulfate (Ferrous Sulfate Tab*) 325 mg PO DAILY [facility] Last Admin: 10/24/18 08:58 Dose: 325 mg Hydralazine HCl (Apresoline Iv*) 5 mg IV SLOW PU Q6H PRN PRN Reason: HTN Last Admin: 10/17/18 03:48 Dose: 5 mg Sodium Chloride (Ns 0.9% 1000 Ml) 1,000 mls @ 75 mls/hr IV PER RATE [facility] Stop: 10/24/18 22:34 Insulin Glargine (Lantus(*)) 10 units SUBCUT Q24H [facility] Last Admin: 10/24/18 10:22 Dose: 10 units Insulin Human Lispro (Humalog*) 5 units SUBCUT AC [facility] Last Admin: 10/24/18 08:56 Dose: 5 units Insulin Human Lispro (Humalog*) 0 units SUBCUT ACHS [facility]; Protocol Last Admin: 10/24/18 08:56 Dose: 4 units Levothyroxine Sodium (Synthroid Tab*) 12.5 mcg PO DAILY@0600 [facility] Last Admin: 10/24/18 05:38 Dose: 12.5 mcg Magnesium Hydroxide (Milk Of Magnesia Liq*) 30 ml PO Q6H PRN PRN Reason: CONSTIPATION Metoprolol Tartrate (Lopressor Iv*) 2.5 mg IV Q6H [facility] Last Admin: 10/24/18 05:39 Dose: 2.5 mg Pantoprazole Sodium (Protonix Tab*) 40 mg PO DAILY [facility] Last Admin: 10/24/18 09:00 Dose: 40 mg Senna (Senokot Tab*) 2 tab PO BEDTIME PRN PRN Reason: CONSTIPATION Trimethobenzamide HCl (Tigan Cap*) 300 mg PO Q8H PRN PRN Reason: NAUSEA Trimethobenzamide HCl (Tigan Im*) 200 mg IM Q8HR PRN PRN Reason: NAUSEA Last Admin: 10/22/18 10:07 Dose: 200 mg Vital Signs 10/23/18 10/23/18 10/23/18 12:09 15:38 19:47 Temperature 97.4 F 97.8 F 97.0 F Pulse Rate 114 112 116 Respiratory 20 18 18 Rate Blood Pressure 109/56 126/67 123/66 (mmHg) O2 Sat by Pulse 97 96 97 Oximetry 10/23/18 10/23/18 10/24/18 20:39 23:43 03:19 Temperature 98.3 F 98.8 F Pulse Rate 52 93 Respiratory 18 16 18 Rate Blood Pressure 128/89 105/87 (mmHg) O2 Sat by Pulse 94 100 Oximetry 10/24/18 07:13 Temperature 97.4 F Pulse Rate 116 Respiratory 16 Rate Blood Pressure 130/65 (mmHg) O2 Sat by Pulse 95 Oximetry Intake and Output Last 24 Hours 10/22/18 10/23/18 10/24/18 10/25/18 06:59 06:59 06:59 06:59 Intake Total 50 50 240 Output Total 100 Balance 50 50 140 Weight 154 lb 1.6 oz 155 lb 11.2 oz 155 lb 3.2 oz Intake: Oral 50 50 240 Output: Urine 100 Other: Estimated Void Large # Bowel Movements 1 1 Estimated Stool Amount Medium Small # Voids 2 Oxygen Devices in Use Now: None Neurology Exam: General: Awake, sitting up in bed, very pleasantly confused this am on my visit. Denies any problems or concerns HEENT: Normocephalic/atraumatic, sclera anicteric, mucous membranes moist Neck: Supple Chest: Clear to auscultation bilaterally Cardiovascular: Regular rate and rhythm currently Extremities: No clubbing, cyanosis, or edema Neurological Findings: Alert to person only. Confused Speech: appears intact today Cranial Nerve: right homonymous hemianopsia. Mild left facial droop. Motor: Moving all extremities to command, no obvious drift this am Sensation: intact to LT/PP bilaterally upper and lower extremities Deep Tendon Reflex: 1+ symmetric in the upper/lower extremities, Babinski - down going No tremors on exam today Result Diagrams: 10/23/18 06:29 10/24/18 08:10 Microbiology and Other Data: Microbiology 10/15/18 15:12 Nasal Screen MRSA (PCR) - Final Nasal Mrsa Not Detected Assessment/Plan 1. 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 Evolving. --Holding anticoagulation at this point --Plan to repeat CT scan next week and will weigh in on when to start anticoagulation 2. Encephalopathy: Multifactorial delirium. No reported seizures. In the process of weaning Keppra: --Continue Keppra wean, should be off tomorrow --Watch for seizures, neuro checks. 3. Continue supportive care, PT/OT. Time spent: 30 minutes.
--- NOTE | 2018-10-24 13:31 | PN ---
Subjective Date of Service: 10/24/18 Interval History: Patient was letharigc this Am but without new neurological deficits. Patient was able to be aroused at all times and was able to answer questions with baseline confusion. Patient later was more alert and denies CP, Palpitations, SOB, F/C, dysuria, abdominal pain, presyncope, or other pain. Family History: Unchanged from Admission Social History: Unchanged from Admission Past Medical History: Unchanged from Admission Objective Active Medications: Acetaminophen (Tylenol Tab*) 650 mg PO Q6H PRN PRN Reason: FEVER/HEADACHE Last Admin: 10/18/18 16:50 Dose: 650 mg Atorvastatin Calcium (Lipitor*) 40 mg PO DAILY@1700 [facility] Last Admin: 10/23/18 16:10 Dose: 40 mg Balsalazide (Colazal Cap(Nf)) 1,500 mg PO BID [facility]; Protocol Last Admin: 10/24/18 08:59 Dose: 1,500 mg Dextrose (D50w Syringe 50 Ml*) 12.5 gm IV PUSH .FOR FS < 60 - SS PRN PRN Reason: FS < 60 Digoxin (Lanoxin Tab*) 0.125 mg PO 1700 [facility]PL[facility]ED BY [facility] Docusate Sodium (Colace Cap*) 100 mg PO BID [facility]PL[facility] Last Admin: 10/24/18 08:57 Dose: 100 mg Ferrous Sulfate (Ferrous Sulfate Tab*) 325 mg PO DAILY REPLACED BY [facility] Last Admin: 10/24/18 08:58 Dose: 325 mg Hydralazine HCl (Apresoline Iv*) 5 mg IV SLOW PU Q6H PRN PRN Reason: HTN Last Admin: 10/17/18 03:48 Dose: 5 mg Sodium Chloride (Ns 0.9% 1000 Ml) 1,000 mls @ 75 mls/hr IV PER RATE REPLACED BY [facility] Stop: 10/24/18 22:34 Insulin Glargine (Lantus(*)) 10 units SUBCUT Q24H REPLACED BY [facility] Last Admin: 10/24/18 10:22 Dose: 10 units Insulin Human Lispro (Humalog*) 5 units SUBCUT AC REPLACED BY [facility] Last Admin: 10/24/18 12:06 Dose: 5 units Insulin Human Lispro (Humalog*) 0 units SUBCUT ACHS REPLACED BY [facility]; Protocol Last Admin: 10/24/18 12:07 Dose: 8 units Levothyroxine Sodium (Synthroid Tab*) 12.5 mcg PO DAILY@0600 [facility] Last Admin: 10/24/18 05:38 Dose: 12.5 mcg Magnesium Hydroxide (Milk Of Magnesia Liq*) 30 ml PO Q6H PRN PRN Reason: CONSTIPATION Metoprolol Tartrate (Lopressor Iv*) 2.5 mg IV Q6H REPLACED BY [facility] Last Admin: 10/24/18 13:01 Dose: 2.5 mg Pantoprazole Sodium (Protonix Tab*) 40 mg PO DAILY REPLACED BY [facility] Last Admin: 10/24/18 09:00 Dose: 40 mg Senna (Senokot Tab*) 2 tab PO BEDTIME PRN PRN Reason: CONSTIPATION Trimethobenzamide HCl (Tigan Cap*) 300 mg PO Q8H PRN PRN Reason: NAUSEA Trimethobenzamide HCl (Tigan Im*) 200 mg IM Q8HR PRN PRN Reason: NAUSEA Last Admin: 10/22/18 10:07 Dose: 200 mg Vital Signs - 8 hr 10/24/18 10/24/18 07:13 08:00 Temperature 97.4 F Pulse Rate 116 Respiratory 16 16 Rate Blood Pressure 130/65 (mmHg) O2 Sat by Pulse 95 Oximetry Oxygen Devices in Use Now: None Appearance: Patient is an 83yo female who appears stated age and is sitting in the bed in [facility]. Eyes: No Scleral Icterus, PERRLA Ears/Nose/Mouth/Throat: NL Teeth, Lips, Gums, Clear Oropharnyx, Mucous Membranes Moist Neck: NL Appearance and Movements; NL JVP, Trachea Midline Respiratory: Symmetrical Chest Expansion and Respiratory Effort, Clear to Auscultation Cardiovascular: NL Sounds; No Murmurs; No JVD, No Edema, - - Tachycardia Abdominal: NL Sounds; No Tenderness; No Distention, No Hepatosplenomegaly Lymphatic: No Cervical Adenopathy Extremities: No Edema, No Clubbing, Cyanosis Skin: No Rash or Ulcers, No Nodules or Sclerosis Neurological: - - Alert and oriented only to self. Right sided weakness unchanged from previous exams. Result Diagrams: 10/23/18 06:29 10/24/18 08:10 Microbiology and Other Data: Microbiology 10/15/18 15:12 Nasal Screen MRSA (PCR) - Final Nasal Mrsa Not Detected Assess/Plan/Problems-Billing 1. 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 Evolving. --Holding anticoagulation at this point --Plan to repeat CT scan next week and will weigh in on when to start anticoagulation 2. Encephalopathy: Multifactorial delirium. No reported seizures. In the process of weaning Keppra: --Continue Keppra wean, should be off tomorrow --Watch for seizures, neuro checks. 3. Continue supportive care, PT/OT. Time spent: 30 minutes. - Patient Problems (1) Hemorrhagic cerebrovascular accident (CVA) Current Visit: Yes Status: Acute Code(s): I61.9 - NONTRAUMATIC INTRACEREBRAL HEMORRHAGE, UNSPECIFIED SNOMED Code(s): 662468662 Comment: - Ischemic CVA earlier this month, now with hemorrhagic conversion in the setting of Aspirin and Eliquis use - S/P KCentra and platelet transfusion - F/U CT brain shows bleeding is stable, despite some mental status fluctuation - Repeat CT from today shows continued evolution of bleed - Delayed restarting ASA per neuro based on discussion of brain bleed evolution with radiologist, will likely restart Friday. - Neurosurgery and neurology input appreciated - Continue seizure prophylaxis with Keppra (for 1 week), will stop today - Goal SBP 110-130 to keep perfusion with minimal risk of bleeding - Continue neuro checks - PT/OT/Speech (2) Atrial fibrillation Current Visit: Yes Status: Chronic Code(s): I48.91 - UNSPECIFIED ATRIAL FIBRILLATION SNOMED Code(s): 60512398 Comment: - Appreciate cardiology consult - Patient appears to currently be in atypical flutter with HR 110s-120s - Stop Dofetilide Per Cardiology as chemical conversion may provoke CVA given duration of flutter. - Discussed with outpatient software technician and inpatient cardiology who recommend against cardioversion, to continue dofetilide, and rate control with metoprolol and digoxin - Resume aspirin when indicated as above - Loaded with Digoxin with no response to HR, continue daily (3) Diabetes Current Visit: Yes Status: Acute Code(s): E11.9 - TYPE 2 DIABETES MELLITUS WITHOUT COMPLICATIONS SNOMED Code(s): 52395203 Comment: - Glucose 150s-200 - Continue Lispro sliding scale - Continue to hold metformin and glipizide - Adjust to add on mealtime insulin and adjust recursively. - Increase lantus for morning hyperglycemia. (4) HTN (hypertension) Current Visit: Yes Status: Acute Code(s): I10 - ESSENTIAL (PRIMARY) HYPERTENSION SNOMED Code(s): 67974183 Comment: - Mostly normotensive, SBP 100-140's - Metoprolol 2.5mg IV Q6H - Goal SBP 110-130 (5) Ventricular tachycardia Current Visit: Yes Status: Acute Code(s): I47.2 - VENTRICULAR TACHYCARDIA SNOMED Code(s): 22310318 Comment: - Had 8 beats overnight on 10/19/18 - Continue to monitor on tele - Optimize electrolytes (6) Iron deficiency anemia Current Visit: Yes Status: Chronic Code(s): D50.9 - IRON DEFICIENCY ANEMIA, UNSPECIFIED SNOMED Code(s): 65375354 Comment: - Continue ferrous sulfate - Excellent response (7) Ulcerative colitis Current Visit: No Status: Acute Code(s): K51.90 - ULCERATIVE COLITIS, UNSPECIFIED, WITHOUT COMPLICATIONS SNOMED Code(s): 31251961 Comment: - Not in exacerbation - Cont Balsalazide. (8) DVT prophylaxis Current Visit: Yes Status: Acute Code(s): [id number] - SNOMED Code(s): 899560791 Comment: - Pharmacological prophylaxis contraindicated in the setting of hemorrhagic CVA - SCDs only (9) DNR (do not resuscitate) Current Visit: Yes Status: Acute Status and Disposition: Inpatient. Suspect she will need RIK at discharge, hopefully early next week.
[2018-10-24] MEDS ORDERED: Magnesium Sulfate 2 GM IV* 2 GM/50 ML BAG IVPB ONE (14:30)
[2018-10-24] MEDS ORDERED: Metoprolol Tartrate IV* 1 MG/ML 5 ML VIAL IV ONE (16:35)
[2018-10-24] MEDS ORDERED: Metoprolol Tartrate TAB* 25 MG PO SCH (17:00)
[2018-10-24] MEDS ORDERED: Digoxin TAB* 0.25 MG PO SCH (17:00)
[2018-10-24] MEDS: Atorvastatin* 40 MG TAB PO SCH (17:05)
[2018-10-24] MEDS: Digoxin TAB* 0.125 MG PO SCH (17:05)
[2018-10-24 19:38] LABS: Urine Appearance Clear; Urine Bacteria Absent (Absent); Urine Bilirubin Negative (Negative); Urine Blood Negative (Negative); Urine Color Yellow; Urine Glucose 1+(50 mg/dL) (Negative); Urine Ketones Negative (Negative); Urine Nitrite Negative (Negative); Urine Protein Negative (Negative); Urine Red Blood Cell Trace(0-2/hpf) (Absent); Urine Specific Gravity 1.018 (1.010-1.030); Urine Squamous Epithelial Cell Present (Absent); Urine Urobilinogen Negative (Negative); Urine White Blood Cell 2+(11-20/hpf) (Absent)
[2018-10-24] MEDS: Metoprolol Tartrate TAB* 25 MG PO SCH (20:08)
[2018-10-25] MEDS: Metoprolol Tartrate TAB* 25 MG PO SCH ×4 (01:45→19:52)
[2018-10-25] MEDS: Levothyroxine TAB* 25 MCG TAB PO SCH (05:12)
[2018-10-25 07:28] LABS: ABS Basophils 0 10^3/ul (0-0.2); ABS Eosinophils 0.2 10^3/ul (0-0.6); ABS Lymphocytes 2.3 10^3/ul (1.0-4.8); ABS Monocytes 0.8 10^3/ul (0-0.8); ABS Neutrophils 4.9 10^3/ul (1.5-7.7); ABS Nucleated RBC 0 10^3/ul; Eosinophil % 1.9 %; Hematocrit 33 % (35-47); Hemoglobin 11.1 g/dl (12.0-16.0); Lymphocyte % 27.9 %; Mean Corpuscular HGB Conc 33 g/dl (31-36); Mean Corpuscular Hemoglobin 30 pg (27-31); Mean Corpuscular Volume 88 fL (80-97); Mean Platelet Volume 7.9 fL (7.4-10.4); Nucleated Red Blood Cells % 0; Platelet Count 158 10^3/ul (150-450); Red Blood Count 3.76 10^6/ul (4.00-5.40); Red Cell Distribution Width 20 % (10.5-15); White Blood Count 8.1 10^3/ul (3.5-10.8)
[2018-10-25 07:43] LABS: BUN/Creatinine Ratio 21.1 (8-20); Calcium 9.9 mg/dL (8.6-10.3); EGFR African American 54.8 (>60); EGFR Non-African American 45.3 (>60); Magnesium 2.2 mg/dL (1.9-2.7); Potassium 4.1 mmol/L (3.5-5.0)
[2018-10-25] MEDS: Insulin LISPRO* 1 UNITS UNIT SUBCUT SCH ×7 (08:50→19:49)
[2018-10-25] MEDS: Insulin GLARGINE(*) 1 UNITS UNIT SUBCUT SCH (08:51)
[2018-10-25] MEDS: Pantoprazole TAB * 40 MG TAB PO SCH (08:52)
[2018-10-25] MEDS: Docusate CAP* 100 MG PO SCH ×2 (08:52→19:52)
[2018-10-25] MEDS: Ferrous Sulfate TAB* 325 MG PO SCH (08:52)
[2018-10-25] MEDS: BALSALAZIDE SODIUM 750 MG PO SCH ×2 (08:56→19:53)
--- NOTE | 2018-10-25 14:29 | PN ---
Subjective Date of Service: 10/25/18 Interval History: Patient is much more alert today. Patient is weeping this AM because she believes her life is near to being over and she is never going to go home. Patient denies F/C, N/V, abdominal pain, palpitations, diarrhea, dysuria, CP, SOB, new weakness, or other pain. Patient feels in a much better place after being able to go visit her dog. Family History: Unchanged from Admission Social History: Unchanged from Admission Past Medical History: Unchanged from Admission Objective Active Medications: Acetaminophen (Tylenol Tab*) 650 mg PO Q6H PRN PRN Reason: FEVER/HEADACHE Last Admin: 10/18/18 16:50 Dose: 650 mg Atorvastatin Calcium (Lipitor*) 40 mg PO DAILY@1700 [facility] Last Admin: 10/24/18 17:05 Dose: 40 mg Balsalazide (Colazal Cap(Nf)) 1,500 mg PO BID [facility]; Protocol Last Admin: 10/25/18 08:56 Dose: 1,500 mg Dextrose (D50w Syringe 50 Ml*) 12.5 gm IV PUSH .FOR FS < 60 - SS PRN PRN Reason: FS < 60 Digoxin (Lanoxin Tab*) 0.125 mg PO 1700 [facility] Last Admin: 10/24/18 17:05 Dose: 0.125 mg Docusate Sodium (Colace Cap*) 100 mg PO BID [facility] Last Admin: 10/25/18 08:52 Dose: 100 mg Ferrous Sulfate (Ferrous Sulfate Tab*) 325 mg PO DAILY [facility] Last Admin: 10/25/18 08:52 Dose: 325 mg Hydralazine HCl (Apresoline Iv*) 5 mg IV SLOW PU Q6H PRN PRN Reason: HTN Last Admin: 10/17/18 03:48 Dose: 5 mg Insulin Glargine (Lantus(*)) 10 units SUBCUT Q24H [facility] Last Admin: 10/25/18 08:51 Dose: 10 units Insulin Human Lispro (Humalog*) 5 units SUBCUT AC [facility] Last Admin: 10/25/18 12:31 Dose: 5 units Insulin Human Lispro (Humalog*) 0 units SUBCUT ACHS [facility]; Protocol Last Admin: 10/25/18 12:31 Dose: 4 units Levothyroxine Sodium (Synthroid Tab*) 12.5 mcg PO DAILY@0600 [facility] Last Admin: 10/25/18 05:12 Dose: 12.5 mcg Magnesium Hydroxide (Milk Of Magnesia Liq*) 30 ml PO Q6H PRN PRN Reason: CONSTIPATION Metoprolol Tartrate (Lopressor Tab*) 25 mg PO Q6H [facility] Last Admin: 10/25/18 08:52 Dose: 25 mg Pantoprazole Sodium (Protonix Tab*) 40 mg PO DAILY [facility] Last Admin: 10/25/18 08:52 Dose: 40 mg Senna (Senokot Tab*) 2 tab PO BEDTIME PRN PRN Reason: CONSTIPATION Trimethobenzamide HCl (Tigan Cap*) 300 mg PO Q8H PRN PRN Reason: NAUSEA Trimethobenzamide HCl (Tigan Im*) 200 mg IM Q8HR PRN PRN Reason: NAUSEA Last Admin: 10/22/18 10:07 Dose: 200 mg Vital Signs - 8 hr 10/25/18 10/25/18 10/25/18 07:40 08:26 12:33 Temperature 97.6 F 97.6 F Pulse Rate 79 105 Respiratory 16 16 16 Rate Blood Pressure 140/75 114/74 (mmHg) O2 Sat by Pulse 97 97 Oximetry Oxygen Devices in Use Now: None Appearance: Chaparrita is an 83yo female who appears stated age and is sitting in the bed in [facility]. Eyes: No Scleral Icterus, PERRLA Ears/Nose/Mouth/Throat: NL Teeth, Lips, Gums, Clear Oropharnyx, Mucous Membranes Moist Neck: NL Appearance and Movements; NL JVP, Trachea Midline Respiratory: Symmetrical Chest Expansion and Respiratory Effort, Clear to Auscultation Cardiovascular: NL Sounds; No Murmurs; No JVD, No Edema, - - Tachycardic Abdominal: NL Sounds; No Tenderness; No Distention, No Hepatosplenomegaly Lymphatic: No Cervical Adenopathy Extremities: No Edema, No Clubbing, Cyanosis Skin: No Rash or Ulcers, No Nodules or Sclerosis Neurological: NL Sensation, - - Alert and oriented to self and place. Occasionally makes non-sensical statements. 4/5 strength in LUE and LLE. Reflexes normal. Dysmetria with left hand. Result Diagrams: 10/25/18 06:58 10/25/18 06:58 Microbiology and Other Data: Microbiology 10/15/18 15:12 Nasal Screen MRSA (PCR) - Final Nasal Mrsa Not Detected Assess/Plan/Problems-Billing 1. 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 Evolving. --Holding anticoagulation at this point --Plan to repeat CT scan next week and will weigh in on when to start anticoagulation 2. Encephalopathy: Multifactorial delirium. No reported seizures. In the process of weaning Keppra: --Continue Keppra wean, should be off tomorrow --Watch for seizures, neuro checks. 3. Continue supportive care, PT/OT. Time spent: 30 minutes. - Patient Problems (1) Hemorrhagic cerebrovascular accident (CVA) Current Visit: Yes Status: Acute Code(s): I61.9 - NONTRAUMATIC INTRACEREBRAL HEMORRHAGE, UNSPECIFIED SNOMED Code(s): 210453736 Comment: - Ischemic CVA earlier this month, now with hemorrhagic conversion in the setting of Aspirin and Eliquis use - S/P KCentra and platelet transfusion - Repeat CT from 10/23 shows continued evolution of bleed - Delayed restarting ASA per neuro based on discussion of brain bleed evolution with radiologist, will likely restart Friday after repeat brain CT. - Neurosurgery and neurology input appreciated - Goal SBP 110-130 to keep perfusion with minimal risk of bleeding - Continue neuro checks - PT/OT/Speech - Rehab at D/C. (2) Atrial fibrillation Current Visit: Yes Status: Chronic Code(s): I48.91 - UNSPECIFIED ATRIAL FIBRILLATION SNOMED Code(s): 93647332 Comment: - Appreciate cardiology consult - Patient appears to currently be in atypical flutter with HR 110s-120s - Stop Dofetilide Per Cardiology as chemical conversion may provoke CVA given duration of flutter. - Discussed with outpatient diesel scoop operator and inpatient cardiology who recommend against cardioversion, to continue dofetilide, and rate control with metoprolol and digoxin - Resume aspirin when indicated as above - Loaded with Digoxin with no response to HR, continue daily. Recheck level today. - Increased bursts of afib with RVR after tikosyn discontinuation, now back to HR around 105 with minimal fluctuation (3) Diabetes Current Visit: Yes Status: Acute Code(s): E11.9 - TYPE 2 DIABETES MELLITUS WITHOUT COMPLICATIONS SNOMED Code(s): 98945743 Comment: - Glucose 150s-200 - Continue Lispro sliding scale - Continue to hold metformin and glipizide - Adjust to add on mealtime insulin and adjust recursively. - Increase lantus for morning hyperglycemia. (4) HTN (hypertension) Current Visit: Yes Status: Acute Code(s): I10 - ESSENTIAL (PRIMARY) HYPERTENSION SNOMED Code(s): 13261561 Comment: - Mostly normotensive, SBP 100-140's - Metoprolol 25mg IV Q6H - Goal SBP 110-130 (5) Ventricular tachycardia Current Visit: Yes Status: Acute Code(s): I47.2 - VENTRICULAR TACHYCARDIA SNOMED Code(s): 76051360 Comment: - Had 8 beats overnight on 10/19/18 - Continue to monitor on tele - Optimize electrolytes - ICD present (6) Iron deficiency anemia Current Visit: Yes Status: Chronic Code(s): D50.9 - IRON DEFICIENCY ANEMIA, UNSPECIFIED SNOMED Code(s): 22502982 Comment: - Continue ferrous sulfate - Excellent response (7) Ulcerative colitis Current Visit: No Status: Acute Code(s): K51.90 - ULCERATIVE COLITIS, UNSPECIFIED, WITHOUT COMPLICATIONS SNOMED Code(s): 80514956 Comment: - Not in exacerbation - Cont Balsalazide. (8) DVT prophylaxis Current Visit: Yes Status: Acute Code(s): PDI4812 - SNOMED Code(s): 782302906 Comment: - Pharmacological prophylaxis contraindicated in the setting of hemorrhagic CVA - SCDs only (9) DNR (do not resuscitate) Current Visit: Yes Status: Acute Status and Disposition: Inpatient. Suspect she will need RIK at discharge, hopefully early next week.
[2018-10-25] MEDS: metFORMIN* 500 MG TAB PO SCH (17:21)
[2018-10-25] MEDS: Digoxin TAB* 0.125 MG PO SCH (17:21)
[2018-10-25] MEDS: Atorvastatin* 40 MG TAB PO SCH (17:29)
[2018-10-26] MEDS: Metoprolol Tartrate TAB* 25 MG PO SCH ×4 (02:32→20:46)
[2018-10-26] MEDS: Levothyroxine TAB* 25 MCG TAB PO SCH (05:14)
[2018-10-26 06:44] LABS: BUN/Creatinine Ratio 19.3 (8-20); Calcium 10.1 mg/dL (8.6-10.3); EGFR African American 57.7 (>60); EGFR Non-African American 47.7 (>60); Magnesium 1.9 mg/dL (1.9-2.7); Potassium 4.1 mmol/L (3.5-5.0)
--- NOTE | 2018-10-26 08:01 | PN ---
Subjective Date of Service: 10/26/18 Length of Stay: 11 Days Interval History: No issues overnight. Stable. Sleeping this am. Tele continues to show A.fib/ tachycardia. She denies any problems. Yesterday she because somewhat tearful saying "I'm ready to go home." She was able to see her dog yesterday with brightened her spirits. I spoke with her son yesterday and updated him on the plan. Family History: Unchanged from Admission Social History: Unchanged from Admission Past Medical History: Unchanged from Admission Objective Active Medications: Acetaminophen (Tylenol Tab*) 650 mg PO Q6H PRN PRN Reason: FEVER/HEADACHE Last Admin: 10/18/18 16:50 Dose: 650 mg Atorvastatin Calcium (Lipitor*) 40 mg PO DAILY@1700 [facility] Last Admin: 10/25/18 17:29 Dose: 40 mg Balsalazide (Colazal Cap(Nf)) 1,500 mg PO BID [facility]; Protocol Last Admin: 10/25/18 19:53 Dose: 1,500 mg Dextrose (D50w Syringe 50 Ml*) 12.5 gm IV PUSH .FOR FS < 60 - SS PRN PRN Reason: FS < 60 Digoxin (Lanoxin Tab*) 0.125 mg PO 1700 [facility] Last Admin: 10/25/18 17:21 Dose: 0.125 mg Docusate Sodium (Colace Cap*) 100 mg PO BID [facility] Last Admin: 10/25/18 19:52 Dose: 100 mg Ferrous Sulfate (Ferrous Sulfate Tab*) 325 mg PO DAILY [facility] Last Admin: 10/25/18 08:52 Dose: 325 mg Hydralazine HCl (Apresoline Iv*) 5 mg IV SLOW PU Q6H PRN PRN Reason: HTN Last Admin: 10/17/18 03:48 Dose: 5 mg Insulin Glargine (Lantus(*)) 10 units SUBCUT Q24H [facility] Last Admin: 10/25/18 08:51 Dose: 10 units Insulin Human Lispro (Humalog*) 5 units SUBCUT AC [facility] Last Admin: 10/25/18 17:21 Dose: 5 units Insulin Human Lispro (Humalog*) 0 units SUBCUT ACHS [facility]; Protocol Last Admin: 10/25/18 19:49 Dose: Not Given Levothyroxine Sodium (Synthroid Tab*) 12.5 mcg PO DAILY@0600 [facility] Last Admin: 10/26/18 05:14 Dose: 12.5 mcg Magnesium Hydroxide (Milk Of Magnesia Liq*) 30 ml PO Q6H PRN PRN Reason: CONSTIPATION Metformin HCl (Glucophage*) 500 mg PO 0800,1700 [facility] Last Admin: 10/25/18 17:21 Dose: 500 mg Metoprolol Tartrate (Lopressor Tab*) 25 mg PO Q6H [facility] Last Admin: 10/26/18 02:32 Dose: 25 mg Pantoprazole Sodium (Protonix Tab*) 40 mg PO DAILY [facility] Last Admin: 10/25/18 08:52 Dose: 40 mg Senna (Senokot Tab*) 2 tab PO BEDTIME PRN PRN Reason: CONSTIPATION Trimethobenzamide HCl (Tigan Cap*) 300 mg PO Q8H PRN PRN Reason: NAUSEA Trimethobenzamide HCl (Tigan Im*) 200 mg IM Q8HR PRN PRN Reason: NAUSEA Last Admin: 10/22/18 10:07 Dose: 200 mg Vital Signs 10/25/18 10/25/18 10/25/18 08:26 12:33 15:52 Temperature 97.6 F 97.6 F 97.9 F Pulse Rate 79 105 103 Respiratory 16 16 18 Rate Blood Pressure 140/75 114/74 136/51 (mmHg) O2 Sat by Pulse 97 97 94 Oximetry 10/25/18 10/25/18 10/25/18 17:21 19:31 20:00 Temperature 97.3 F Pulse Rate 83 106 Respiratory 17 16 Rate Blood Pressure 131/59 (mmHg) O2 Sat by Pulse 96 Oximetry 10/26/18 10/26/18 00:07 02:48 Temperature 97.8 F 98.1 F Pulse Rate 104 108 Respiratory 16 16 Rate Blood Pressure 125/63 133/66 (mmHg) O2 Sat by Pulse 96 94 Oximetry Intake and Output Last 24 Hours 10/24/18 10/25/18 10/26/18 10/27/18 06:59 06:59 06:59 06:59 Intake Total 240 590 360 Output Total 100 250 Balance 140 590 110 Weight 155 lb 3.2 oz 167 lb 6.4 oz 156 lb 14.4 oz Intake: Oral 240 590 360 Output: Urine 100 250 Other: Estimated Void Large Medium # Bowel Movements 1 1 Estimated Stool Amount Small Small # Voids 1 1 Oxygen Devices in Use Now: None Neurology Exam: General: Sleeping but awakens easily. Pleasantly confused. Denies any problems or concerns HEENT: Normocephalic/atraumatic, sclera anicteric, mucous membranes moist Neck: Supple Chest: Clear to auscultation bilaterally Cardiovascular: Irreg irreg, tachycardic Extremities: No clubbing, cyanosis, or edema Neurological Findings: Alert to person, "hospital." Speech: Intact, no significant dysarthria. Following commands, conversant. Cranial Nerve: right homonymous hemianopsia. Mild left facial droop. Unchanged Motor: Moving all extremities to command, no drift Sensation: intact to LT/PP bilaterally upper and lower extremities Deep Tendon Reflex: 1+ symmetric in the upper/lower extremities, Babinski - down going No resting or intention tremors Result Diagrams: 10/25/18 06:58 10/26/18 06:14 Microbiology and Other Data: Microbiology 10/15/18 15:12 Nasal Screen MRSA (PCR) - Final Nasal Mrsa Not Detected Assessment/Plan 1. 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 Evolving. --Plan to repeat CT today. If stable, we will likely re-start baby-ASA only. --Placement may be necessary. Will need outpatient PT/OT/ST as well. --A.fib/flutter: Cards following. ASA when indicated. --DM/HTN control 2. Encephalopathy: Multifactorial delirium. No reported seizures. In the process of weaning Keppra: --Now off Keppra, no seizures reported. Continue to follow --Neurochecks 3. Continue supportive care, PT/OT. Time spent: 20 minutes.
[2018-10-26] MEDS: Insulin LISPRO* 1 UNITS UNIT SUBCUT SCH ×7 (08:22→20:46)
[2018-10-26] MEDS: Pantoprazole TAB * 40 MG TAB PO SCH (08:23)
[2018-10-26] MEDS: Docusate CAP* 100 MG PO SCH ×2 (08:24→20:46)
[2018-10-26] MEDS: metFORMIN* 500 MG TAB PO SCH ×2 (08:24→17:05)
[2018-10-26] MEDS: Ferrous Sulfate TAB* 325 MG PO SCH (08:24)
[2018-10-26] MEDS: Insulin GLARGINE(*) 1 UNITS UNIT SUBCUT SCH ×2 (10:14→10:18)
[2018-10-26] MEDS: BALSALAZIDE SODIUM 750 MG PO SCH ×2 (10:17→20:46)
--- NOTE | 2018-10-26 16:00 | PN ---
Subjective Date of Service: 10/26/18 Interval History: Patient is in a good mood today. Noticible improvement in mental state again. Patient has decrease episodes of distractibility. Patient denies complaint including F/C, CP, SOB, N/V, abdominal pain, diarrhea, dysuria, or other pain. Patient states she feels more steady on her feet when ambulating. Family History: Unchanged from Admission Social History: Unchanged from Admission Past Medical History: Unchanged from Admission Objective Active Medications: Acetaminophen (Tylenol Tab*) 650 mg PO Q6H PRN PRN Reason: FEVER/HEADACHE Last Admin: 10/18/18 16:50 Dose: 650 mg Atorvastatin Calcium (Lipitor*) 40 mg PO DAILY@1700 [facility] Last Admin: 10/25/18 17:29 Dose: 40 mg Balsalazide (Colazal Cap(Nf)) 1,500 mg PO BID [facility]; Protocol Last Admin: 10/26/18 10:17 Dose: 1,500 mg Dextrose (D50w Syringe 50 Ml*) 12.5 gm IV PUSH .FOR FS < 60 - SS PRN PRN Reason: FS < 60 Digoxin (Lanoxin Tab*) 0.125 mg PO 1700 [facility] Last Admin: 10/25/18 17:21 Dose: 0.125 mg Docusate Sodium (Colace Cap*) 100 mg PO BID [facility] Last Admin: 10/26/18 08:24 Dose: 100 mg Ferrous Sulfate (Ferrous Sulfate Tab*) 325 mg PO DAILY [facility] Last Admin: 10/26/18 08:24 Dose: 325 mg Hydralazine HCl (Apresoline Iv*) 5 mg IV SLOW PU Q6H PRN PRN Reason: HTN Last Admin: 10/17/18 03:48 Dose: 5 mg Insulin Glargine (Lantus(*)) 15 units SUBCUT Q24H [facility] Last Admin: 10/26/18 10:14 Dose: 15 unit Insulin Human Lispro (Humalog*) 5 units SUBCUT AC [facility] Last Admin: 10/26/18 11:47 Dose: 5 units Insulin Human Lispro (Humalog*) 0 units SUBCUT ACHS [facility]; Protocol Last Admin: 10/26/18 11:47 Dose: 2 units Levothyroxine Sodium (Synthroid Tab*) 12.5 mcg PO DAILY@0600 [facility] Last Admin: 10/26/18 05:14 Dose: 12.5 mcg Magnesium Hydroxide (Milk Of Magnesia Liq*) 30 ml PO Q6H PRN PRN Reason: CONSTIPATION Metformin HCl (Glucophage*) 500 mg PO 0800,1700 [facility] Last Admin: 10/26/18 08:24 Dose: 500 mg Metoprolol Tartrate (Lopressor Tab*) 25 mg PO Q6H [facility] Last Admin: 10/26/18 14:17 Dose: 25 mg Pantoprazole Sodium (Protonix Tab*) 40 mg PO DAILY [facility] Last Admin: 10/26/18 08:23 Dose: 40 mg Senna (Senokot Tab*) 2 tab PO BEDTIME PRN PRN Reason: CONSTIPATION Trimethobenzamide HCl (Tigan Cap*) 300 mg PO Q8H PRN PRN Reason: NAUSEA Trimethobenzamide HCl (Tigan Im*) 200 mg IM Q8HR PRN PRN Reason: NAUSEA Last Admin: 10/22/18 10:07 Dose: 200 mg Vital Signs - 8 hr 10/26/18 10/26/18 10/26/18 08:01 10:50 11:27 Temperature 97.4 F 97.9 F 97.5 F Pulse Rate 107 107 106 Respiratory 17 15 16 Rate Blood Pressure 125/51 134/75 126/85 (mmHg) O2 Sat by Pulse 97 98 99 Oximetry 10/26/18 10/26/18 14:52 15:32 Temperature 96.9 F 97.7 F Pulse Rate 107 106 Respiratory 16 17 Rate Blood Pressure 124/59 133/68 (mmHg) O2 Sat by Pulse 96 99 Oximetry Oxygen Devices in Use Now: None Appearance: Patient is an 83yo female who appears stated age and is sitting in the chair in [facility]. Eyes: No Scleral Icterus, PERRLA Ears/Nose/Mouth/Throat: NL Teeth, Lips, Gums, Clear Oropharnyx, Mucous Membranes Moist Neck: NL Appearance and Movements; NL JVP, Trachea Midline Respiratory: Symmetrical Chest Expansion and Respiratory Effort, Clear to Auscultation Cardiovascular: NL Sounds; No Murmurs; No JVD, RRR, No Edema Abdominal: NL Sounds; No Tenderness; No Distention, No Hepatosplenomegaly Lymphatic: No Cervical Adenopathy Extremities: No Edema, No Clubbing, Cyanosis Skin: No Rash or Ulcers, No Nodules or Sclerosis Neurological: NL Sensation, - - A/Ox2, Stable right sided weakness. Result Diagrams: 10/25/18 06:58 10/26/18 06:14 Microbiology and Other Data: Microbiology 10/15/18 15:12 Nasal Screen MRSA (PCR) - Final Nasal Mrsa Not Detected Assess/Plan/Problems-Billing 1. 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 Evolving. --Plan to repeat CT today. If stable, we will likely re-start baby-ASA only. --Placement may be necessary. Will need outpatient PT/OT/ST as well. --A.fib/flutter: Cards following. ASA when indicated. --DM/HTN control 2. Encephalopathy: Multifactorial delirium. No reported seizures. In the process of weaning Keppra: --Now off Keppra, no seizures reported. Continue to follow --Neurochecks 3. Continue supportive care, PT/OT. Time spent: 20 minutes. - Patient Problems (1) Hemorrhagic cerebrovascular accident (CVA) Current Visit: Yes Status: Acute Code(s): I61.9 - NONTRAUMATIC INTRACEREBRAL HEMORRHAGE, UNSPECIFIED SNOMED Code(s): 102301929 Comment: - Ischemic CVA earlier this month, now with hemorrhagic conversion in the setting of Aspirin and Eliquis use - S/P KCentra and platelet transfusion - Repeat CT from 10/23 shows continued evolution of bleed, repeat from 10/26 shows no progression - Restart ASA 81mg daily. Monitor closely. - Neurosurgery and neurology input appreciated - Goal SBP 110-130 to keep perfusion with minimal risk of bleeding - Continue neuro checks - PT/OT/Speech - Rehab at D/C. (2) Atrial fibrillation Current Visit: Yes Status: Chronic Code(s): I48.91 - UNSPECIFIED ATRIAL FIBRILLATION SNOMED Code(s): 00290961 Comment: - Appreciate cardiology consult - Patient appears to currently be in atypical flutter with HR 105-110 - Stop Dofetilide Per Cardiology as chemical conversion may provoke CVA given duration of flutter. - Discussed with outpatient can dryer and inpatient cardiology who recommend against cardioversion, to continue dofetilide, and rate control with metoprolol and digoxin - Resume aspirin, Extreme care with further anticoagulation. - Loaded with Digoxin with no response to HR, continue daily. Recheck level therapeutic. (3) Diabetes Current Visit: Yes Status: Acute Code(s): E11.9 - TYPE 2 DIABETES MELLITUS WITHOUT COMPLICATIONS SNOMED Code(s): 19138205 Comment: - Glucose 150s-200 - Continue Lispro sliding scale - Resume metformin - Continue to hold glipizide - Adjust to add on mealtime insulin and adjust recursively. - Increase lantus for morning hyperglycemia. (4) HTN (hypertension) Current Visit: Yes Status: Acute Code(s): I10 - ESSENTIAL (PRIMARY) HYPERTENSION SNOMED Code(s): 47979209 Comment: - Mostly normotensive, SBP 100-140's - Metoprolol 25mg PO Q6H - Goal SBP 110-130 (5) Ventricular tachycardia Current Visit: Yes Status: Acute Code(s): I47.2 - VENTRICULAR TACHYCARDIA SNOMED Code(s): 39217318 Comment: - Had 8 beats overnight on 10/19/18 - Continue to monitor on tele - Optimize electrolytes - ICD present (6) Iron deficiency anemia Current Visit: Yes Status: Chronic Code(s): D50.9 - IRON DEFICIENCY ANEMIA, UNSPECIFIED SNOMED Code(s): 44904827 Comment: - Continue ferrous sulfate - Excellent response (7) Ulcerative colitis Current Visit: No Status: Acute Code(s): K51.90 - ULCERATIVE COLITIS, UNSPECIFIED, WITHOUT COMPLICATIONS SNOMED Code(s): 97859722 Comment: - Not in exacerbation - Cont Balsalazide. (8) DVT prophylaxis Current Visit: Yes Status: Acute Code(s): JFV1249 - SNOMED Code(s): 942246151 Comment: - ASA and SCDs only (9) DNR (do not resuscitate) Current Visit: Yes Status: Acute Status and Disposition: Inpatient. Suspect she will need RIK at discharge. Hopeful discharge in 1-2 days.
[2018-10-26] MEDS: Atorvastatin* 40 MG TAB PO SCH (17:05)
[2018-10-26] MEDS: Digoxin TAB* 0.125 MG PO SCH (17:06)
[2018-10-26] MEDS: Aspirin EC TAB* 81 MG TAB.EC PO SCH (18:01)
[2018-10-27] MEDS: Metoprolol Tartrate TAB* 25 MG PO SCH ×4 (01:46→21:11)
[2018-10-27] MEDS: Levothyroxine TAB* 25 MCG TAB PO SCH (05:07)
[2018-10-27 06:00] LABS: ABS Basophils 0 10^3/ul (0-0.2); ABS Eosinophils 0.2 10^3/ul (0-0.6); ABS Lymphocytes 2.4 10^3/ul (1.0-4.8); ABS Monocytes 0.8 10^3/ul (0-0.8); ABS Neutrophils 4.7 10^3/ul (1.5-7.7); ABS Nucleated RBC 0 10^3/ul; Eosinophil % 2.6 %; Hematocrit 33 % (35-47); Hemoglobin 10.9 g/dl (12.0-16.0); Lymphocyte % 29.6 %; Mean Corpuscular HGB Conc 33 g/dl (31-36); Mean Corpuscular Hemoglobin 29 pg (27-31); Mean Corpuscular Volume 89 fL (80-97); Mean Platelet Volume 7.8 fL (7.4-10.4); Nucleated Red Blood Cells % 0; Platelet Count 147 10^3/ul (150-450); Red Blood Count 3.75 10^6/ul (4.00-5.40); Red Cell Distribution Width 20 % (10.5-15); White Blood Count 8.2 10^3/ul (3.5-10.8)
[2018-10-27 06:14] LABS: Calcium 10.2 mg/dL (8.6-10.3); Magnesium 1.8 mg/dL (1.9-2.7); Potassium 3.9 mmol/L (3.5-5.0)
[2018-10-27 06:20] LABS: BUN/Creatinine Ratio 18.8 (8-20); EGFR Non-African American 52.1 (>60)
[2018-10-27] MEDS ORDERED: Magnesium Sulfate 2 GM IV* 2 GM/50 ML BAG IVPB ONE (08:37)
[2018-10-27] MEDS ORDERED: Potassium Chlor TAB* 20 MEQ TAB.ER PO ONE (08:37)
[2018-10-27] MEDS: Insulin LISPRO* 1 UNITS UNIT SUBCUT SCH ×7 (09:53→20:37)
[2018-10-27] MEDS: Ferrous Sulfate TAB* 325 MG PO SCH (09:54)
[2018-10-27] MEDS: metFORMIN* 500 MG TAB PO SCH ×2 (09:54→15:59)
[2018-10-27] MEDS: Aspirin EC TAB* 81 MG TAB.EC PO SCH (09:54)
[2018-10-27] MEDS: Docusate CAP* 100 MG PO SCH ×2 (09:54→21:10)
[2018-10-27] MEDS: Pantoprazole TAB * 40 MG TAB PO SCH (09:54)
[2018-10-27] MEDS: Insulin GLARGINE(*) 1 UNITS UNIT SUBCUT SCH (09:55)
[2018-10-27] MEDS: BALSALAZIDE SODIUM 750 MG PO SCH ×2 (10:33→21:11)
[2018-10-27] MEDS: Metoprolol Tartrate IV* 1 MG/ML 5 ML VIAL IV PRN ×2 (11:22→16:46)
[2018-10-27] MEDS: Atorvastatin* 40 MG TAB PO SCH (15:58)
[2018-10-27] MEDS: Digoxin TAB* 0.125 MG PO SCH (15:58)
--- NOTE | 2018-10-27 18:50 | PN ---
Subjective Date of Service: 10/27/18 Interval History: Resting in chair with family at bedside. Family reports overall improvement in status. Nurse called reporting occasionally tachycardia up to 130s when ambulating. No new orders at this time. Patient denies chest pain, palpitations, nausea, vomiting, sob, abd pain, urinary symptoms, headache, fever, chills Family History: Unchanged from Admission Social History: Unchanged from Admission Past Medical History: Unchanged from Admission Objective Active Medications: Acetaminophen (Tylenol Tab*) 650 mg PO Q6H PRN PRN Reason: FEVER/HEADACHE Last Admin: 10/18/18 16:50 Dose: 650 mg Aspirin (Aspirin Ec Tab*) 81 mg PO DAILY [facility] Last Admin: 10/27/18 09:54 Dose: 81 mg Atorvastatin Calcium (Lipitor*) 40 mg PO DAILY@1700 [facility] Last Admin: 10/27/18 15:58 Dose: 40 mg Balsalazide (Colazal Cap(Nf)) 1,500 mg PO BID [facility]; Protocol Last Admin: 10/27/18 10:33 Dose: 1,500 mg Dextrose (D50w Syringe 50 Ml*) 12.5 gm IV PUSH .FOR FS < 60 - SS PRN PRN Reason: FS < 60 Digoxin (Lanoxin Tab*) 0.125 mg PO 1700 [facility] Last Admin: 10/27/18 15:58 Dose: 0.125 mg Docusate Sodium (Colace Cap*) 100 mg PO BID [facility] Last Admin: 10/27/18 09:54 Dose: 100 mg Ferrous Sulfate (Ferrous Sulfate Tab*) 325 mg PO DAILY [facility] Last Admin: 10/27/18 09:54 Dose: 325 mg Hydralazine HCl (Apresoline Iv*) 5 mg IV SLOW PU Q6H PRN PRN Reason: HTN Last Admin: 10/17/18 03:48 Dose: 5 mg Insulin Glargine (Lantus(*)) 15 units SUBCUT Q24H [facility] Last Admin: 10/27/18 09:55 Dose: 15 unit Insulin Human Lispro (Humalog*) 5 units SUBCUT AC [facility] Last Admin: 10/27/18 17:44 Dose: 5 units Insulin Human Lispro (Humalog*) 0 units SUBCUT ACHS [facility]; Protocol Last Admin: 10/27/18 17:44 Dose: 2 units Levothyroxine Sodium (Synthroid Tab*) 12.5 mcg PO DAILY@0600 [facility] Last Admin: 10/27/18 05:07 Dose: 12.5 mcg Magnesium Hydroxide (Milk Of Magnesia Liq*) 30 ml PO Q6H PRN PRN Reason: CONSTIPATION Metformin HCl (Glucophage*) 500 mg PO 0800,1700 [facility] Last Admin: 10/27/18 15:59 Dose: 500 mg Metoprolol Tartrate (Lopressor Tab*) 25 mg PO Q6H [facility] Last Admin: 10/27/18 15:59 Dose: 25 mg Metoprolol Tartrate (Lopressor Iv*) 2.5 mg IV Q6H PRN PRN Reason: TACHYCARDIA Last Admin: 10/27/18 16:46 Dose: 2.5 mg Pantoprazole Sodium (Protonix Tab*) 40 mg PO DAILY [facility] Last Admin: 10/27/18 09:54 Dose: 40 mg Senna (Senokot Tab*) 2 tab PO BEDTIME PRN PRN Reason: CONSTIPATION Trimethobenzamide HCl (Tigan Cap*) 300 mg PO Q8H PRN PRN Reason: NAUSEA Trimethobenzamide HCl (Tigan Im*) 200 mg IM Q8HR PRN PRN Reason: NAUSEA Last Admin: 10/22/18 10:07 Dose: 200 mg Vital Signs - 8 hr 10/27/18 10/27/18 10/27/18 12:02 15:47 15:58 Temperature 97.6 F 97.0 F Pulse Rate 79 83 135 Respiratory 16 16 Rate Blood Pressure 114/48 100/66 (mmHg) O2 Sat by Pulse 97 98 Oximetry Oxygen Devices in Use Now: None Appearance: Comfortable, NAD Eyes: No Scleral Icterus Ears/Nose/Mouth/Throat: Clear Oropharnyx, Mucous Membranes Moist Neck: NL Appearance and Movements; NL JVP Respiratory: Symmetrical Chest Expansion and Respiratory Effort, Clear to Auscultation Cardiovascular: NL Sounds; No Murmurs; No JVD, RRR, No Edema Abdominal: NL Sounds; No Tenderness; No Distention Lymphatic: No Cervical Adenopathy Extremities: No Edema Skin: No Rash or Ulcers Neurological: Alert and Oriented x 3, NL Muscle Strength and Tone, - - Coordination intact Nutrition: Taking PO's Result Diagrams: 10/27/18 05:40 10/27/18 05:40 Additional Lab and Data: Laboratory Results - last 24 hr 10/26/18 10/27/18 10/27/18 20:18 05:40 05:40 WBC 8.2 RBC 3.75 L Hgb 10.9 L Hct 33 L MCV 89 MCH 29 MCHC 33 RDW 20 H Plt Count 147 L MPV 7.8 Neut % (Auto) 57.0 Lymph % (Auto) 29.6 [place] % (Auto) 10.4 Eos % (Auto) 2.6 Baso % (Auto) 0.4 Absolute Neuts (auto) 4.7 Absolute Lymphs (auto) 2.4 Absolute Monos (auto) 0.8 Absolute Eos (auto) 0.2 Absolute Basos (auto) 0 Absolute Nucleated RBC 0 Nucleated RBC % 0 Sodium 139 Potassium 3.9 Chloride 106 Carbon Dioxide 24 Anion Gap 9 BUN 19 Creatinine 1.01 H Est GFR ( Amer) 63.0 Est GFR (Non-Af Amer) 52.1 BUN/Creatinine Ratio 18.8 Glucose 166 H POC Glucose (mg/dL) 209 H Calcium 10.2 Magnesium 1.8 L 10/27/18 10/27/18 10/27/18 07:36 13:05 17:16 WBC RBC Hgb Hct MCV MCH MCHC RDW Plt Count MPV Neut % (Auto) Lymph % (Auto) [place] % (Auto) Eos % (Auto) Baso % (Auto) Absolute Neuts (auto) Absolute Lymphs (auto) Absolute Monos (auto) Absolute Eos (auto) Absolute Basos (auto) Absolute Nucleated RBC Nucleated RBC % Sodium Potassium Chloride Carbon Dioxide Anion Gap BUN Creatinine Est GFR ( Amer) Est GFR (Non-Af Amer) BUN/Creatinine Ratio Glucose POC Glucose (mg/dL) 175 H 128 H 158 H Calcium Magnesium Microbiology and Other Data: Microbiology 10/24/18 18:32 Urine Urine Culture - Final Enterococcus Faecalis Gayle Albicans 10/15/18 15:12 Nasal Nasal Screen MRSA (PCR) - Final Mrsa Not Detected Assess/Plan/Problems-Billing 1. 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 Evolving. --Plan to repeat CT today. If stable, we will likely re-start baby-ASA only. --Placement may be necessary. Will need outpatient PT/OT/ST as well. --A.fib/flutter: Cards following. ASA when indicated. --DM/HTN control 2. Encephalopathy: Multifactorial delirium. No reported seizures. In the process of weaning Keppra: --Now off Keppra, no seizures reported. Continue to follow --Neurochecks 3. Continue supportive care, PT/OT. Time spent: 20 minutes. - Patient Problems (1) UTI (urinary tract infection) Comment: - Urine culture revealed Entercoccus Faecalis - given recent tachycardia and urine culture, patient will be initiated on Ampicillin (2) Diabetes Comment: - Glucose 150s-200 - Continue Lispro sliding scale - Resume metformin - Continue to hold glipizide - Adjust to add on mealtime insulin and adjust recursively. - Increase lantus for morning hyperglycemia. (3) HTN (hypertension) Comment: - Mostly normotensive, SBP 100-140's - Metoprolol 25mg PO Q6H - Goal SBP 110-130 (4) Hemorrhagic cerebrovascular accident (CVA) Comment: - Ischemic CVA earlier this month, now with hemorrhagic conversion in the setting of Aspirin and Eliquis use - S/P KCentra and platelet transfusion - Repeat CT from 10/23 shows continued evolution of bleed, repeat from 10/26 shows no progression - Restart (10/26/18) ASA 81mg daily. Monitor closely. - Neurosurgery and neurology input appreciated - Goal SBP 110-130 to keep perfusion with minimal risk of bleeding - Continue neuro checks - PT/OT/Speech - Rehab at D/C. (5) Ventricular tachycardia Comment: - Had 8 beats overnight on 10/19/18 - Continue to monitor on tele - Optimize electrolytes - ICD present (6) Atrial fibrillation Comment: - Appreciate cardiology consult - Patient appears to currently be in atypical flutter with HR 105-110 - Stop Dofetilide Per Cardiology as chemical conversion may provoke CVA given duration of flutter. - Discussed with outpatient admitting counselor and inpatient cardiology who recommend against cardioversion, to discontinue dofetilide, and rate control with metoprolol and digoxin - Resume aspirin, Extreme care with further anticoagulation. - Loaded with Digoxin with no response to HR, continue daily. Recheck level therapeutic. (7) Iron deficiency anemia Comment: - Continue ferrous sulfate (8) Ulcerative colitis Comment: - Not in exacerbation - Cont Balsalazide. (9) DNR (do not resuscitate) (10) DVT prophylaxis Comment: - ASA and SCDs only Status and Disposition: Inpatient. Suspect she will need RIK at discharge. Hopeful discharge in 1-2 days. Attending: Howard Oquendo
[2018-10-27] MEDS: Ampicillin CAP* 500 MG PO SCH (21:10)
[2018-10-28] MEDS: Metoprolol Tartrate TAB* 25 MG PO SCH ×4 (01:49→21:41)
[2018-10-28] MEDS: Levothyroxine TAB* 25 MCG TAB PO SCH (05:29)
[2018-10-28 06:32] LABS: Hematocrit 33 % (35-47); Mean Corpuscular HGB Conc 34 g/dl (31-36); Mean Corpuscular Hemoglobin 30 pg (27-31); Mean Corpuscular Volume 88 fL (80-97); Mean Platelet Volume 7.8 fL (7.4-10.4); Platelet Count 153 10^3/ul (150-450); Red Blood Count 3.71 10^6/ul (4.00-5.40); Red Cell Distribution Width 20 % (10.5-15); White Blood Count 8.2 10^3/ul (3.5-10.8)
[2018-10-28 06:47] LABS: Potassium 4.1 mmol/L (3.5-5.0)
[2018-10-28 06:53] LABS: BUN/Creatinine Ratio 18.4 (8-20); EGFR African American 54.8 (>60); EGFR Non-African American 45.3 (>60)
[2018-10-28] MEDS: Insulin LISPRO* 1 UNITS UNIT SUBCUT SCH ×8 (08:26→21:26)
[2018-10-28] MEDS: Ferrous Sulfate TAB* 325 MG PO SCH (09:11)
[2018-10-28] MEDS: Docusate CAP* 100 MG PO SCH ×2 (09:11→21:42)
[2018-10-28] MEDS: Pantoprazole TAB * 40 MG TAB PO SCH (09:11)
[2018-10-28] MEDS: Aspirin EC TAB* 81 MG TAB.EC PO SCH (09:11)
[2018-10-28] MEDS: Ampicillin CAP* 500 MG PO SCH ×3 (09:38→21:40)
[2018-10-28] MEDS: BALSALAZIDE SODIUM 750 MG PO SCH ×2 (09:39→21:40)
[2018-10-28] MEDS: Insulin GLARGINE(*) 1 UNITS UNIT SUBCUT SCH (09:41)
[2018-10-28] MEDS: metFORMIN* 500 MG TAB PO SCH (09:56)
[2018-10-28] MEDS ORDERED: Metoprolol Tartrate TAB* 25 MG PO SCH (16:00)
--- NOTE | 2018-10-28 18:20 | PN ---
Subjective Date of Service: 10/28/18 Interval History: I have received 2 calls from RN today that patient has breif episodes of increase heart rate into 130s to 150s. Patient asymptomatic. I discusses with telecommunication operator and it appears it occurs when patient is getting ready to stand. In addition it only last approx 5 mintues and occurs once every 3 to 4 hours. Patient is sitting in recliner on assessment. Denies chest pain, palpitations, sob, nausea, vomiting, diarrhea, fever, chills , dizziness, headache, weakness. Family History: Unchanged from Admission Social History: Unchanged from Admission Past Medical History: Unchanged from Admission Objective Active Medications: Acetaminophen (Tylenol Tab*) 650 mg PO Q6H PRN PRN Reason: FEVER/HEADACHE Last Admin: 10/18/18 16:50 Dose: 650 mg Ampicillin (Ampicillin Cap*) 500 mg PO TID [facility] Last Admin: 10/28/18 13:05 Dose: 500 mg Aspirin (Aspirin Ec Tab*) 81 mg PO DAILY [facility] Last Admin: 10/28/18 09:11 Dose: 81 mg Atorvastatin Calcium (Lipitor*) 40 mg PO DAILY@1700 [facility] Last Admin: 10/27/18 15:58 Dose: 40 mg Balsalazide (Colazal Cap(Nf)) 1,500 mg PO BID [facility]; Protocol Last Admin: 10/28/18 09:39 Dose: 1,500 mg Dextrose (D50w Syringe 50 Ml*) 12.5 gm IV PUSH .FOR FS < 60 - SS PRN PRN Reason: FS < 60 Digoxin (Lanoxin Tab*) 0.125 mg PO 1700 [facility] Last Admin: 10/27/18 15:58 Dose: 0.125 mg Docusate Sodium (Colace Cap*) 100 mg PO BID [facility] Last Admin: 10/28/18 09:11 Dose: 100 mg Ferrous Sulfate (Ferrous Sulfate Tab*) 325 mg PO DAILY [facility] Last Admin: 10/28/18 09:11 Dose: 325 mg Hydralazine HCl (Apresoline Iv*) 5 mg IV SLOW PU Q6H PRN PRN Reason: HTN Last Admin: 10/17/18 03:48 Dose: 5 mg Insulin Glargine (Lantus(*)) 15 units SUBCUT Q24H [facility] Last Admin: 10/28/18 09:41 Dose: 15 unit Insulin Human Lispro (Humalog*) 5 units SUBCUT AC [facility] Last Admin: 10/28/18 13:04 Dose: 5 units Insulin Human Lispro (Humalog*) 0 units SUBCUT ACHS [facility]; Protocol Last Admin: 10/28/18 13:04 Dose: 6 units Levothyroxine Sodium (Synthroid Tab*) 12.5 mcg PO DAILY@0600 [facility] Last Admin: 10/28/18 05:29 Dose: 12.5 mcg Magnesium Hydroxide (Milk Of Magnesia Liq*) 30 ml PO Q6H PRN PRN Reason: CONSTIPATION Metformin HCl (Glucophage*) 500 mg PO 0800,1700 [facility] Metoprolol Tartrate (Lopressor Tab*) 25 mg PO Q6H [facility] Last Admin: 10/28/18 13:06 Dose: 25 mg Pantoprazole Sodium (Protonix Tab*) 40 mg PO DAILY [facility] Last Admin: 10/28/18 09:11 Dose: 40 mg Senna (Senokot Tab*) 2 tab PO BEDTIME PRN PRN Reason: CONSTIPATION Trimethobenzamide HCl (Tigan Cap*) 300 mg PO Q8H PRN PRN Reason: NAUSEA Trimethobenzamide HCl (Tigan Im*) 200 mg IM Q8HR PRN PRN Reason: NAUSEA Last Admin: 10/22/18 10:07 Dose: 200 mg Vital Signs - 8 hr 10/28/18 11:36 Temperature 98.3 F Pulse Rate 79 Respiratory 16 Rate Blood Pressure 134/58 (mmHg) O2 Sat by Pulse 95 Oximetry Oxygen Devices in Use Now: None Appearance: Comfortable Eyes: PERRLA Ears/Nose/Mouth/Throat: Clear Oropharnyx, Mucous Membranes Moist Respiratory: Symmetrical Chest Expansion and Respiratory Effort, Clear to Auscultation Cardiovascular: NL Sounds; No Murmurs; No JVD, RRR, No Edema, - Abdominal: NL Sounds; No Tenderness; No Distention Lymphatic: No Cervical Adenopathy Extremities: No Edema Skin: No Rash or Ulcers Neurological: - - Alert to self and place. Stable right sided weakness. Nutrition: Taking PO's Result Diagrams: 10/28/18 06:12 10/28/18 06:12 Additional Lab and Data: Laboratory Results - last 24 hr 10/27/18 10/28/18 10/28/18 20:19 06:12 06:12 WBC 8.2 RBC 3.71 L Hgb 11.0 L Hct 33 L MCV 88 MCH 30 MCHC 34 RDW 20 H Plt Count 153 MPV 7.8 Sodium 137 Potassium 4.1 Chloride 105 Carbon Dioxide 23 Anion Gap 9 BUN 21 Creatinine 1.14 H Est GFR ( Amer) 54.8 Est GFR (Non-Af Amer) 45.3 BUN/Creatinine Ratio 18.4 Glucose 153 H POC Glucose (mg/dL) 85 Calcium 10.0 Magnesium 2.0 10/28/18 10/28/18 10/28/18 08:13 12:06 16:26 WBC RBC Hgb Hct MCV MCH MCHC RDW Plt Count MPV Sodium Potassium Chloride Carbon Dioxide Anion Gap BUN Creatinine Est GFR ( Amer) Est GFR (Non-Af Amer) BUN/Creatinine Ratio Glucose POC Glucose (mg/dL) 170 H 290 H 104 H Calcium Magnesium Microbiology and Other Data: Microbiology 10/24/18 18:32 Urine Urine Culture - Final Enterococcus Faecalis Gayle Albicans 10/15/18 15:12 Nasal Nasal Screen MRSA (PCR) - Final Mrsa Not Detected Assess/Plan/Problems-Billing 1. 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 Evolving. --Plan to repeat CT today. If stable, we will likely re-start baby-ASA only. --Placement may be necessary. Will need outpatient PT/OT/ST as well. --A.fib/flutter: Cards following. ASA when indicated. --DM/HTN control 2. Encephalopathy: Multifactorial delirium. No reported seizures. In the process of weaning Keppra: --Now off Keppra, no seizures reported. Continue to follow --Neurochecks 3. Continue supportive care, PT/OT. Time spent: 20 minutes. - Patient Problems (1) UTI (urinary tract infection) Comment: - Urine culture revealed Entercoccus Faecalis - Given recent tachycardia and urine culture, patient will be initiated on Ampicillin (2) Diabetes Comment: - Glucose 150s-200 - Continue Lispro sliding scale - Resume metformin - Continue to hold glipizide (3) HTN (hypertension) Comment: - Metoprolol 25mg PO Q6H - Goal SBP 110-130 which she is maintaining (4) Hemorrhagic cerebrovascular accident (CVA) Comment: - Ischemic CVA earlier this month, now with hemorrhagic conversion in the setting of Aspirin and Eliquis use - S/P KCentra and platelet transfusion - Repeat CT from 10/23 shows continued evolution of bleed, repeat from 10/26 shows no progression - Restarted (10/26/18) ASA 81mg daily. Monitor closely. - Neurosurgery and neurology input appreciated - Goal SBP 110-130 to keep perfusion with minimal risk of bleeding - Continue neuro checks - PT/OT/Speech - Rehab at D/C. (5) Ventricular tachycardia Comment: - Had 8 beats overnight on 10/19/18 - Continue to monitor on tele - Optimize electrolytes - ICD present (6) Atrial fibrillation Comment: - Appreciate cardiology consult - Patient appears to currently be in atypical flutter with HR 105-110 - Stop Dofetilide Per Cardiology as chemical conversion may provoke CVA given duration of flutter. - Discussed with outpatient chief engineer production and inpatient cardiology who recommend against cardioversion, to discontinue dofetilide, and rate control with metoprolol and digoxin - Resume aspirin, Extreme care with further anticoagulation. - Loaded with Digoxin with no response to HR, continue daily. Recheck level therapeutic. (7) Iron deficiency anemia Comment: - Continue ferrous sulfate (8) Ulcerative colitis Comment: - Not in exacerbation - Cont Balsalazide. (9) DNR (do not resuscitate) (10) DVT prophylaxis Comment: - ASA and SCDs only Status and Disposition: Inpatient. Suspect she will need RIK at discharge. Hopeful discharge in 1-2 days. Attending: Howard Oquendo
[2018-10-28] MEDS: Digoxin TAB* 0.125 MG PO SCH (19:42)
[2018-10-28] MEDS: Atorvastatin* 40 MG TAB PO SCH (19:42)
[2018-10-29] MEDS: Metoprolol Tartrate TAB* 25 MG PO SCH ×4 (03:13→23:55)
[2018-10-29] MEDS: Levothyroxine TAB* 25 MCG TAB PO SCH (06:25)
[2018-10-29 07:11] LABS: BUN/Creatinine Ratio 15.2 (8-20); Calcium 10.3 mg/dL (8.6-10.3); EGFR African American 55.9 (>60); EGFR Non-African American 46.2 (>60); Potassium 4.2 mmol/L (3.5-5.0)
[2018-10-29 07:12] LABS: Digoxin 1.2 ng/ml (0.8-2.0)
[2018-10-29] MEDS: Insulin LISPRO* 1 UNITS UNIT SUBCUT SCH ×7 (08:53→23:54)
[2018-10-29] MEDS: Insulin GLARGINE(*) 1 UNITS UNIT SUBCUT SCH (08:54)
[2018-10-29] MEDS: Pantoprazole TAB * 40 MG TAB PO SCH (08:55)
[2018-10-29] MEDS: Docusate CAP* 100 MG PO SCH ×2 (08:55→23:56)
[2018-10-29] MEDS: metFORMIN* 500 MG TAB PO SCH ×2 (08:55→17:07)
[2018-10-29] MEDS: Ferrous Sulfate TAB* 325 MG PO SCH (08:55)
[2018-10-29] MEDS: Aspirin EC TAB* 81 MG TAB.EC PO SCH (08:56)
[2018-10-29] MEDS: Ampicillin CAP* 500 MG PO SCH ×3 (09:04→23:56)
[2018-10-29] MEDS: BALSALAZIDE SODIUM 750 MG PO SCH ×2 (09:04→23:55)
--- NOTE | 2018-10-29 11:12 | PN ---
Subjective Date of Service: 10/29/18 Interval History: Pt states she is generally feeling well. She does state she feels "lost." She tells me she is tired and just came in last night (she did not remember that she had been in the hospital in total for weeks). She feels her strength is unchanged and strong. Objective Active Medications: Acetaminophen (Tylenol Tab*) 650 mg PO Q6H PRN PRN Reason: FEVER/HEADACHE Last Admin: 10/18/18 16:50 Dose: 650 mg Ampicillin (Ampicillin Cap*) 500 mg PO TID [facility] Last Admin: 10/29/18 09:04 Dose: 500 mg Aspirin (Aspirin Ec Tab*) 81 mg PO DAILY [facility] Last Admin: 10/29/18 08:56 Dose: 81 mg Atorvastatin Calcium (Lipitor*) 40 mg PO DAILY@1700 [facility] Last Admin: 10/28/18 19:42 Dose: 40 mg Balsalazide (Colazal Cap(Nf)) 1,500 mg PO BID [facility]; Protocol Last Admin: 10/29/18 09:04 Dose: 1,500 mg Dextrose (D50w Syringe 50 Ml*) 12.5 gm IV PUSH .FOR FS < 60 - SS PRN PRN Reason: FS < 60 Digoxin (Lanoxin Tab*) 0.125 mg PO 1700 [facility] Last Admin: 10/28/18 19:42 Dose: 0.125 mg Docusate Sodium (Colace Cap*) 100 mg PO BID [facility] Last Admin: 10/29/18 08:55 Dose: 100 mg Ferrous Sulfate (Ferrous Sulfate Tab*) 325 mg PO DAILY [facility] Last Admin: 10/29/18 08:55 Dose: 325 mg Insulin Glargine (Lantus(*)) 17 units SUBCUT Q24H [facility] Insulin Human Lispro (Humalog*) 5 units SUBCUT AC [facility] Last Admin: 10/29/18 08:53 Dose: 5 units Insulin Human Lispro (Humalog*) 0 units SUBCUT ACHS [facility]; Protocol Last Admin: 10/29/18 08:54 Dose: 2 units Levothyroxine Sodium (Synthroid Tab*) 12.5 mcg PO DAILY@0600 [facility] Last Admin: 10/29/18 06:25 Dose: 12.5 mcg Magnesium Hydroxide (Milk Of Magnesia Liq*) 30 ml PO Q6H PRN PRN Reason: CONSTIPATION Metformin HCl (Glucophage*) 500 mg PO 0800,1700 [facility] Last Admin: 10/29/18 08:55 Dose: 500 mg Metoprolol Tartrate (Lopressor Tab*) 37.5 mg PO Q6H [facility] Pantoprazole Sodium (Protonix Tab*) 40 mg PO DAILY [facility] Last Admin: 10/29/18 08:55 Dose: 40 mg Senna (Senokot Tab*) 2 tab PO BEDTIME PRN PRN Reason: CONSTIPATION Vital Signs - 8 hr 10/29/18 10/29/18 10/29/18 03:26 07:53 08:02 Temperature 98.5 F 98.1 F Pulse Rate 120 117 118 Respiratory 16 18 Rate Blood Pressure 136/74 141/77 (mmHg) O2 Sat by Pulse 95 95 99 Oximetry 10/29/18 08:58 Temperature Pulse Rate Respiratory Rate Blood Pressure 140/76 (mmHg) O2 Sat by Pulse Oximetry Oxygen Devices in Use Now: None Appearance: Elderly female sitting up in bed, NAD Eyes: No Scleral Icterus Ears/Nose/Mouth/Throat: Mucous Membranes Moist Respiratory: Symmetrical Chest Expansion and Respiratory Effort, Clear to Auscultation - few bibasilar crackles Cardiovascular: NL Sounds; No Murmurs; No JVD, No Edema, - - tachycardic and regular Abdominal: NL Sounds; No Tenderness; No Distention Extremities: No Clubbing, Cyanosis Skin: No Nodules or Sclerosis Neurological: Alert and Oriented x 3 Result Diagrams: 10/28/18 06:12 10/29/18 06:02 Additional Lab and Data: Laboratory Results - last 24 hr 10/27/18 10/28/18 10/28/18 20:19 06:12 06:12 WBC 8.2 RBC 3.71 L Hgb 11.0 L Hct 33 L MCV 88 MCH 30 MCHC 34 RDW 20 H Plt Count 153 MPV 7.8 Sodium 137 Potassium 4.1 Chloride 105 Carbon Dioxide 23 Anion Gap 9 BUN 21 Creatinine 1.14 H Est GFR ( Amer) 54.8 Est GFR (Non-Af Amer) 45.3 BUN/Creatinine Ratio 18.4 Glucose 153 H POC Glucose (mg/dL) 85 Calcium 10.0 Magnesium 2.0 10/28/18 10/28/18 10/28/18 08:13 12:06 16:26 WBC RBC Hgb Hct MCV MCH MCHC RDW Plt Count MPV Sodium Potassium Chloride Carbon Dioxide Anion Gap BUN Creatinine Est GFR ( Amer) Est GFR (Non-Af Amer) BUN/Creatinine Ratio Glucose POC Glucose (mg/dL) 170 H 290 H 104 H Calcium Magnesium Microbiology and Other Data: Microbiology 10/24/18 18:32 Urine Urine Culture - Final Enterococcus Faecalis Gayle Albicans 10/15/18 15:12 Nasal Nasal Screen MRSA (PCR) - Final Mrsa Not Detected Assess/Plan/Problems-Billing Ms Anderson is an 83 yo F who has a h/o afib, DM and HTN who presented initially in Sep 2018 with c/o stroke like symptoms and was diagnosed with a CVA and discharged to [facility]. She was restarted on eliquis and after 3 doses had hemorrhagic conversion of CVA and was readmitted to the hospitalist service, now she is needing to go to [facility]. - Patient Problems (1) CVA (cerebral vascular accident) Current Visit: Yes Status: Acute Code(s): I63.9 - CEREBRAL INFARCTION, UNSPECIFIED SNOMED Code(s): 248422398 Comment: The patient developed hemorrhagic transformation of her initial ischemic CVA. Her CTs have been stable and therefore has been restarted on low dose ASA. She can not return to [facility] and will need to go to [facility] on d/c which should be in the next 24-36hr. Continue lipitor. She was on keppra but this has been weaned off. (2) Atrial fibrillation Current Visit: Yes Status: Chronic Code(s): I48.91 - UNSPECIFIED ATRIAL FIBRILLATION SNOMED Code(s): 17265138 Comment: HR is now routinely greater than 100. Will increase metoprolol to 37.5mg q6hr for today and then change to BID dosing. No anticoagulation at this time due to hemorrhage. (3) Diabetes Current Visit: Yes Status: Acute Code(s): E11.9 - TYPE 2 DIABETES MELLITUS WITHOUT COMPLICATIONS SNOMED Code(s): 18880791 Comment: Sugars are mildly elevated. Will increase lantus to 17units daily. Continue metformin. (4) HTN (hypertension) Current Visit: Yes Status: Acute Code(s): I10 - ESSENTIAL (PRIMARY) HYPERTENSION SNOMED Code(s): 98347539 Comment: BP is stable. Will monitor with increased dose of metoprolol. (5) Depression Current Visit: Yes Status: Acute Code(s): F32.9 - MAJOR DEPRESSIVE DISORDER , SINGLE EPISODE, UNSPECIFIED SNOMED Code(s): 24428360 Comment: Sertraline was placed on hold. Will resume sertraline. (6) Hypothyroid Current Visit: Yes Status: Acute Code(s): E03.9 - HYPOTHYROIDISM, UNSPECIFIED SNOMED Code(s): 53659969 Comment: Continue current dose of synthroid. (7) Ulcerative colitis Current Visit: Yes Status: Acute Code(s): K51.90 - ULCERATIVE COLITIS, UNSPECIFIED, WITHOUT COMPLICATIONS SNOMED Code(s): 78532378 Comment: Continue balsalazide. (8) DVT prophylaxis Current Visit: Yes Status: Acute Code(s): SWI5667 - SNOMED Code(s): 176453629 Comment: SCDs (9) DNR (do not resuscitate) Current Visit: Yes Status: Acute Status and Disposition: .
[2018-10-29] MEDS: Digoxin TAB* 0.125 MG PO SCH (17:07)
[2018-10-29] MEDS: Atorvastatin* 40 MG TAB PO SCH (17:07)
[2018-10-30] MEDS: Metoprolol Tartrate TAB* 25 MG PO SCH ×3 (00:23→10:09)
[2018-10-30] MEDS: Levothyroxine TAB* 25 MCG TAB PO SCH (05:47)
[2018-10-30] MEDS ORDERED: Insulin GLARGINE(*) 1 UNITS UNIT SUBCUT SCH (09:00)
[2018-10-30] MEDS ORDERED: Sertraline* 25 MG TAB PO SCH (09:00)
[2018-10-30] MEDS: Pantoprazole TAB * 40 MG TAB PO SCH (09:03)
[2018-10-30] MEDS: Ferrous Sulfate TAB* 325 MG PO SCH (09:03)
[2018-10-30] MEDS: metFORMIN* 500 MG TAB PO SCH (09:03)
[2018-10-30] MEDS: Insulin LISPRO* 1 UNITS UNIT SUBCUT SCH ×4 (09:03→12:20)
[2018-10-30] MEDS: Docusate CAP* 100 MG PO SCH (09:03)
[2018-10-30] MEDS: Aspirin EC TAB* 81 MG TAB.EC PO SCH (09:03)
[2018-10-30] MEDS: Ampicillin CAP* 500 MG PO SCH ×2 (09:12→13:25)
[2018-10-30] MEDS: BALSALAZIDE SODIUM 750 MG PO SCH (09:13)
--- NOTE | 2018-10-30 11:46 | PN ---
Subjective Date of Service: 10/30/18 Interval History: Pt is feeling wiped out. She just got back from taking a shower. She denies any pain or SOB. Objective Active Medications: Acetaminophen (Tylenol Tab*) 650 mg PO Q6H PRN PRN Reason: FEVER/HEADACHE Last Admin: 10/18/18 16:50 Dose: 650 mg Ampicillin (Ampicillin Cap*) 500 mg PO TID [facility] Last Admin: 10/30/18 09:12 Dose: 500 mg Aspirin (Aspirin Ec Tab*) 81 mg PO DAILY [facility] Last Admin: 10/30/18 09:03 Dose: 81 mg Atorvastatin Calcium (Lipitor*) 40 mg PO DAILY@1700 [facility] Last Admin: 10/29/18 17:07 Dose: 40 mg Balsalazide (Colazal Cap(Nf)) 1,500 mg PO BID [facility]; Protocol Last Admin: 10/30/18 09:13 Dose: 1,500 mg Dextrose (D50w Syringe 50 Ml*) 12.5 gm IV PUSH .FOR FS < 60 - SS PRN PRN Reason: FS < 60 Digoxin (Lanoxin Tab*) 0.125 mg PO 1700 [facility] Last Admin: 10/29/18 17:07 Dose: 0.125 mg Docusate Sodium (Colace Cap*) 100 mg PO BID [facility] Last Admin: 10/30/18 09:03 Dose: 100 mg Ferrous Sulfate (Ferrous Sulfate Tab*) 325 mg PO DAILY [facility] Last Admin: 10/30/18 09:03 Dose: 325 mg Insulin Glargine (Lantus(*)) 17 units SUBCUT Q24H [facility] Last Admin: 10/30/18 09:03 Dose: 17 units Insulin Human Lispro (Humalog*) 5 units SUBCUT AC [facility] Last Admin: 10/30/18 09:03 Dose: 5 units Insulin Human Lispro (Humalog*) 0 units SUBCUT ACHS [facility]; Protocol Last Admin: 10/30/18 09:04 Dose: 2 units Levothyroxine Sodium (Synthroid Tab*) 12.5 mcg PO DAILY@0600 [facility] Last Admin: 10/30/18 05:47 Dose: 12.5 mcg Magnesium Hydroxide (Milk Of Magnesia Liq*) 30 ml PO Q6H PRN PRN Reason: CONSTIPATION Metformin HCl (Glucophage*) 500 mg PO 0800,1700 [facility] Last Admin: 10/30/18 09:03 Dose: 500 mg Metoprolol Tartrate (Lopressor Tab*) 75 mg PO Q12HR [facility] Pantoprazole Sodium (Protonix Tab*) 40 mg PO DAILY [facility] Last Admin: 10/30/18 09:03 Dose: 40 mg Senna (Senokot Tab*) 2 tab PO BEDTIME PRN PRN Reason: CONSTIPATION Sertraline HCl (Zoloft*) 25 mg PO DAILY [facility] Last Admin: 10/30/18 09:03 Dose: 25 mg Vital Signs - 8 hr 10/30/18 10/30/18 03:46 08:10 Temperature 97.6 F 98.6 F Pulse Rate 106 107 Respiratory 16 16 Rate Blood Pressure 128/62 139/70 (mmHg) O2 Sat by Pulse 93 93 Oximetry Oxygen Devices in Use Now: None Appearance: Elderly female lying in bed, NAD Eyes: No Scleral Icterus Ears/Nose/Mouth/Throat: Mucous Membranes Moist Respiratory: Symmetrical Chest Expansion and Respiratory Effort, Clear to Auscultation Cardiovascular: NL Sounds; No Murmurs; No JVD, No Edema, - - HR is slightly tachycardic Abdominal: NL Sounds; No Tenderness; No Distention Extremities: No Clubbing, Cyanosis Skin: No Nodules or Sclerosis Neurological: - - alert, slightly confused Result Diagrams: 10/28/18 06:12 10/29/18 06:02 Additional Lab and Data: Laboratory Results - last 24 hr 10/27/18 10/28/18 10/28/18 20:19 06:12 06:12 WBC 8.2 RBC 3.71 L Hgb 11.0 L Hct 33 L MCV 88 MCH 30 MCHC 34 RDW 20 H Plt Count 153 MPV 7.8 Sodium 137 Potassium 4.1 Chloride 105 Carbon Dioxide 23 Anion Gap 9 BUN 21 Creatinine 1.14 H Est GFR ( Amer) 54.8 Est GFR (Non-Af Amer) 45.3 BUN/Creatinine Ratio 18.4 Glucose 153 H POC Glucose (mg/dL) 85 Calcium 10.0 Magnesium 2.0 10/28/18 10/28/18 10/28/18 08:13 12:06 16:26 WBC RBC Hgb Hct MCV MCH MCHC RDW Plt Count MPV Sodium Potassium Chloride Carbon Dioxide Anion Gap BUN Creatinine Est GFR ( Amer) Est GFR (Non-Af Amer) BUN/Creatinine Ratio Glucose POC Glucose (mg/dL) 170 H 290 H 104 H Calcium Magnesium Microbiology and Other Data: Microbiology 10/24/18 18:32 Urine Urine Culture - Final Enterococcus Faecalis Gayle Albicans 10/15/18 15:12 Nasal Nasal Screen MRSA (PCR) - Final Mrsa Not Detected Assess/Plan/Problems-Billing Ms Anderson is an 83 yo F who has a h/o afib, DM and HTN who presented initially in Sep 2018 with c/o stroke like symptoms and was diagnosed with a CVA and discharged to [facility]. She was restarted on eliquis and after 3 doses had hemorrhagic conversion of CVA and was readmitted to the hospitalist service, now she is needing to go to STR. - Patient Problems (1) CVA (cerebral vascular accident) Current Visit: Yes Status: Acute Code(s): I63.9 - CEREBRAL INFARCTION, UNSPECIFIED SNOMED Code(s): 329667748 Comment: The patient developed hemorrhagic transformation of her initial ischemic CVA. Her CTs have been stable and therefore has been restarted on low dose ASA. She can not return to PM and will need to go to [facility] on d/c which should be in the next 24-36hr. Continue lipitor. She was on keppra but this has been weaned off. CT repeated yesterday due to family's concern that she seemed to have worsened in the prior 24hr. CT scan showed a stable bleed. (2) Atrial fibrillation Current Visit: Yes Status: Chronic Code(s): I48.91 - UNSPECIFIED ATRIAL FIBRILLATION SNOMED Code(s): 74375011 Comment: HR is improved today but still not less than 100. I will be following the patient at [facility] and will adjust her metoprolol dose if her HR does not come down below 100. (3) Diabetes Current Visit: Yes Status: Acute Code(s): E11.9 - TYPE 2 DIABETES MELLITUS WITHOUT COMPLICATIONS SNOMED Code(s): 16862795 Comment: Continue current regimen and monitor FSBG. Will adjust at [facility] as needed. (4) HTN (hypertension) Current Visit: Yes Status: Acute Code(s): I10 - ESSENTIAL (PRIMARY) HYPERTENSION SNOMED Code(s): 92329254 Comment: BP is stable with the increased dose of metoprolol. (5) Depression Current Visit: Yes Status: Acute Code(s): F32.9 - MAJOR DEPRESSIVE DISORDER , SINGLE EPISODE, UNSPECIFIED SNOMED Code(s): 09488026 Comment: Continue sertraline. (6) Hypothyroid Current Visit: Yes Status: Acute Code(s): E03.9 - HYPOTHYROIDISM, UNSPECIFIED SNOMED Code(s): 38813769 Comment: Continue current dose of synthroid. (7) Ulcerative colitis Current Visit: Yes Status: Acute Code(s): K51.90 - ULCERATIVE COLITIS, UNSPECIFIED, WITHOUT COMPLICATIONS SNOMED Code(s): 44147969 Comment: Continue balsalazide. (8) DVT prophylaxis Current Visit: Yes Status: Acute Code(s): XYT8189 - SNOMED Code(s): 469518953 Comment: SCDs (9) DNR (do not resuscitate) Current Visit: Yes Status: Acute Status and Disposition: .
[2018-10-30] MEDS: Acetaminophen TAB* 325 MG PO PRN (14:22)
[2018-10-30 16:32] VITALS: BP 126/54
[2018-10-30] MEDS ORDERED: Metoprolol Tartrate TAB* 25 MG PO SCH (21:00)
--- NOTE | 2018-10-30 23:08 | DS ---
CC: Dr. Vanessa Gómez * DISCHARGE SUMMARY: DATE OF ADMISSION: 10/15/18. DATE OF DISCHARGE: 10/30/18. PRIMARY CARE PROVIDER: Dr. Vanessa Gómez. WIG MAKER: Dr. Morse. PRINCIPAL DIAGNOSIS: Hemorrhagic transformation of ischemic cerebrovascular accident. SECONDARY DIAGNOSES: 1. Delirium - hospital acquired. 2. Atrial fibrillation. 3. Type 2 diabetes. 4. Hypertension. 5. Depression. 6. Hypothyroidism. 7. Ulcerative colitis. DISCHARGE MEDICATIONS: 1. Levothyroxine 12.5 mcg p.o. daily. 2. Sertraline 25 mg p.o. daily. 3. Senna 2 tabs p.o. q.h.s. p.r.n. constipation. 4. Metformin 500 mg p.o. b.i.d. 5. Protonix 40 mg p.o. daily. 6. Ferrous sulfate 325 mg p.o. daily. 7. Colace 100 mg p.o. b.i.d. 8. Calcium carbonate plus D 1 tablet p.o. daily. 9. Balsalazide 1500 mg p.o. b.i.d. 10. Lipitor 80 mg p.o. daily. 11. Aspirin 81 mg p.o. daily. 12. Tylenol 650 mg p.o. q.6 hours p.r.n. pain. 13. Metoprolol tartrate 75 mg p.o. q.12 hours. 14. Lispro 5 units subcutaneous q.a.c. 15. Lantus 17 units subcutaneous daily at 0900. 16. Digoxin 0.125 mg p.o. daily. 17. Ampicillin 500 mg p.o. t.i.d. x12 more doses. HOSPITAL COURSE: Ms. Anderson is an 83-year-old female who was initially admitted to [facility] on 09/25/18 through 10/01/18 where she was diagnosed with an ischemic CVA. The patient was discharged to [facility] on 10/01/18 where she was undergoing physical therapy. The patient was restarted on Eliquis for stroke prevention in the setting of known atrial fibrillation. Unfortunately on 10/15/18, the patient was noted to be altered in terms of her mental status and CT scan performed at that time revealed hemorrhagic transformation of her initial ischemic CVA after initiating Eliquis just three doses prior. The patient was shortly seen after admission by Dr. Krishnamurthy from Neurosurgery. Previously, she was given Kcentra. Surgery was not initially recommended. The patient was also seen again by Dr. Lubin from Neurology, who recommended followup CAT scan and to continue on Keppra for stroke prevention. The patient was again seen by Neurosurgery later on 10/16/18. It was recommended to get a CT scan in 2 days from that time to ensure that her bleed was stable. The patient had steady improvement in her overall condition. She ultimately was weaned off the Keppra as she had no evidence of seizures. She did have an EEG on 10/22/18 that revealed diffuse reactive slowing, which were suggestive of a nonspecific mild to moderate diffuse encephalopathy without any evidence of epileptiform discharges or electrographic seizures. The patient began working with physical therapy again. She has had some waxing and waning mental status and periods of confusion over the last week or so. It is suspected that this now waxing and waning mental status is secondary to delirium. The patient did undergo final repeat CT scan on 10/29/18 due to the patient's family being concerned that she had worsened further. This revealed that the bleed was stable and unchanged. At this point, full anticoagulation for her atrial fibrillation is being held off. Discussion with Neurology will need to be had as to when to resume this. The patient will need to follow up with Neurology as an outpatient. The patient during this hospitalization also had rapid atrial fibrillation. She was seen in consultation by Dr. Gee. The patient was started on digoxin, which has not had a significant effect on heart rate control. Her metoprolol dose has been modified to 75 mg twice daily. With this, her heart rate is under better control, though she is still slightly tachycardic. I will follow up early next week while she is at [facility] and make further adjustments in her metoprolol dose to ensure that her heart rate comes under good control. As above, she is off anticoagulation indefinitely for now. The patient was diagnosed with possible urinary tract infection on 08/26/18 as her urine from 08/23/18 grew Enterococcus faecalis. She has been started on ampicillin and will continue this for another 4 days. In terms of the patient's type 2 diabetes, in general, her sugars have been under fair control. She will continue on metformin 500 mg twice daily and Lantus 17 units daily along with lispro 5 units with each meal. Her sugars will be monitored at [facility] and further adjustments will be made in her diabetes regimen as needed. FOLLOWUP CONCERNS: The patient is being discharged to [facility] today, 10/30. Activity level is as tolerated. Diet is diabetic. CONDITION ON DISCHARGE: Stable. TIME SPENT: Thirty-five minutes was spent discharging this patient. [id number]/[facility] #: [id number]
== END 2018-10-30 17:15 | DRG 64 ==
LOC: ICU 14:46 → MEDTELE 10-18 11:32
PROVIDERS: ADMIT Internal Medicine; ATTEND Hospitalist
PROC: 30233R1 Transfusion of Nonautologous Platelets into Peripheral Vein, Percutaneous Approach (ICD-10-PCS; 2018-10-15)
PROC: 30283B1 Transfusion of Nonautologous 4-Factor Prothrombin Complex Concentrate into Vein, Percutaneous Approach (ICD-10-PCS; 2018-10-15)
PROC: 4A00X4Z Measurement of Central Nervous Electrical Activity, External Approach (ICD-10-PCS; principal; 2018-10-22)
DX: I63.532 Cerebral infarction due to unspecified occlusion or stenosis of left posterior cerebral artery (principal); I61.9 Nontraumatic intracerebral hemorrhage, unspecified; K51.90 Ulcerative colitis, unspecified, without complications; I50.22 Chronic systolic (congestive) heart failure; I13.0 Hypertensive heart and chronic kidney disease with heart failure and stage 1 through stage 4 chronic kidney disease, or unspecified chronic kidney disease; I47.2 Ventricular tachycardia; F05 Delirium due to known physiological condition; G93.49 Other encephalopathy; N39.0 Urinary tract infection, site not specified; E11.649 Type 2 diabetes mellitus with hypoglycemia without coma; B95.2 Enterococcus as the cause of diseases classified elsewhere; I25.10 Atherosclerotic heart disease of native coronary artery without angina pectoris; I65.02 Occlusion and stenosis of left vertebral artery; J45.909 Unspecified asthma, uncomplicated; F32.9 Major depressive disorder, single episode, unspecified; E03.9 Hypothyroidism, unspecified; Z66 Do not resuscitate; R47.81 Slurred speech; I48.0 Paroxysmal atrial fibrillation; E11.22 Type 2 diabetes mellitus with diabetic chronic kidney disease; N18.9 Chronic kidney disease, unspecified; G47.33 Obstructive sleep apnea (adult) (pediatric); D50.9 Iron deficiency anemia, unspecified; M79.662 Pain in left lower leg; R47.01 Aphasia; E78.5 Hyperlipidemia, unspecified; I44.7 Left bundle-branch block, unspecified; I25.5 Ischemic cardiomyopathy; I25.2 Old myocardial infarction; Z95.2 Presence of prosthetic heart valve; Z95.5 Presence of coronary angioplasty implant and graft; Z95.810 Presence of automatic (implantable) cardiac defibrillator; Z90.710 Acquired absence of both cervix and uterus; Z88.8 Allergy status to other drugs, medicaments and biological substances; Z83.3 Family history of diabetes mellitus; Z82.49 Family history of ischemic heart disease and other diseases of the circulatory system; Z79.4 Long term (current) use of insulin; Z79.82 Long term (current) use of aspirin
CPT/HCPCS: 36415; 70450; 71046; 80048; 80162; 81003; 81015; 83735; 85025; 85027; 85049; 85610; 87077; 87086; 87106; 87186; 87641; 93005; 95816; A9270-GY; C9132; G8978-GP-CM; G8979-GP-CK; G8987-GO-CM; G8988-GO-CJ; J0360; J1160; J3250; J3475; J3490; P9035

== ENCOUNTER 2018-12-07 16:02 | Inpatient (IN) | payer MEDICARE, BC ==
--- OUTSIDE RECORDS SUMMARY | 2018-12-07 16:10 | XMS REPORT | Continuity of Care Document ---
:1935 External Reference #:[id number] Author Name Shannan Braun Care Team Providers Name Role Phone Vanessa Gómez MD Primary Care Physician Unavailable Payers Date Identification Numbers Payment Provider Subscriber Effective: 1998 Policy Number: [id number] Medicare Sonal Pearl PayID: [id number] [address] [place] [address] Effective: 2012 Policy Number: [id number] Jack Pearl Expires: 2013 PayID: [id number] [address] [address] [place] [address] Effective: 2010 Policy Number: [id number] BS Of NANDINI Pearl Expires: 2012 Group Number: [id number] [address] [address] PayID: [id number] [place] [address] Effective: 2013 Policy Number: [id number] BS Jack Pearl PayID: [id number] [address] [address] [place] [address] Advance Directives Description No Information Available Problems Date Description Provider Status Onset: 07/10/2011 Benign essential hypertension Maurice Brenner M.D. Active Onset: 11/18/2011 Rheumatic mitral regurgitation Maurice Brenner M.D. Active Onset: 11/18/2011 Atrial fibrillation Maurice Brenner M.D. Active Onset: 11/18/2011 Type 2 diabetes mellitus Maurice Brenner M.D. Active Onset: 01/15/2012 Preoperative cardiovascular Deepali Ponce D.O. Active examination Onset: 01/23/2012 Mitral valve disorder Mirtha Dumont N.P. Active Onset: 03/30/2012 Atrial flutter Mirtha Dumont N.P. Active Onset: 12/30/2013 Hypothyroidism Maurice Brenner M.D. Active Onset: 12/30/2013 Diabetes mellitus Maurice Brenner M.D. 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 Active episode, unspecified Onset: 11/30/2018 Cerebral hemorrhage Carlos Barragan N.P. 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 Active Family History Date Family Member(s) Observation Comments : (1970) Father due to Heart Disease Siblings 3 Social History Type Date Description Comments Sex Unknown Marital Status Lives With Alone Occupation Retired Tobacco Use Start: Unknown Never Smoked Cigarettes Smoking Status Reviewed: 11/30/18 Never Smoked Cigarettes ETOH Use Rarely consumes wine Tobacco Use Start: Unknown Patient has never smoked Recreational Drug Use Denies Drug Use Exercise Type/Frequency Exercises regularly Allergies, Adverse Reactions, Alerts Date Description Reaction Status Severity Comments 12/16/2013 Prednisone anxiety Active at high doses 12/01/2008 NKDA Inactive Medications Medication Date Status Form Strength Qnty SIG Indications Ordering Provider Fluoxetine HCL 11/30/ Active Capsules 10mg 30caps 1 tablet I63.9 Carlos (PMDD) 2019 at bedtime Yung N.P. Calcium 06/21/ Active Tablets 60tabs 1 po qd Other 500/Vitamin D 2012 Ordering Provider Metformin HCL / Active Tablets 500mg 1 by mouth Unknown 0000 twice a day Digox / Active Tablets 125mcg 1 by mouth Unknown 0000 every day Aspirin Adult / Active Tablets DR 81mg 1 by mouth Unknown Low Dose 0000 every day Levothyroxine / Active Tablets 25mcg 1/2 tab by Unknown Sodium 0000 mouth every day Lipitor / Active Tablets 80mg 1 by mouth Unknown 0000 every day Protonix / Active Tablets DR 40mg 1 by mouth Unknown 0000 every day Metoprolol / Active Tablets 75mg 1 by mouth Unknown Tartrate 0000 twice a day Humalog / Active Solution 100Unit/ML inject 5 Unknown 0000 units Senna / Active Tablets 8.6mg take 2 Unknown 0000 tablets by mouth every day as needed Magnesium Oxide 02/23/ Hx Capsules 400mg 90caps 1 by mouth Maurice 2014 - every day F. 11/29/ Mause2018 M.D. Metoprolol 03/17/ Hx Tablets ER 25mg 1/2 by Maurice Succinate ER 2013 - 24HR mouth . 04/22/ every Mauser2013 other day M.D. Metoprolol 12/30/ Hx Tablets 25mg 1 by mouth Other Tartrate 2013 - twice a Ordering day Provider 2013 Tikosyn 12/30/ Hx Capsules 125mcg 180cap 1 by mouth Maurice 2013 - s twice a . day Mause, 2018 M.D. Metoprolol 12/30/ Hx Tablets 25mg 60tabs 1/2 by Maurice Tartrate 2014 - mouth F. 01/20/ twice a Mauser2013 day M.D. Metoprolol 12/30/ Hx Tablets ER 25mg 45tabs 1/2 by Maurice Succinate ER 2014 - 24HR mouth . 03/17/ every day Elidia, 2013 M.D. Levothyroxine 06/21/ Hx Tablets 25mcg 30tabs 1/2 po qd Other Sodium 2012 - Ordering 11/29/ Provider 2019 Simvastatin 06/21/ Hx Tablets 5mg 90tabs 1 po qd, Maurice 2012 - on hold at . 12/30/ this time Elidia 2013 M.D. Amiodarone HCL 12/03/ Hx Tablets 200mg 90tabs 1 po qd Maurice 2012 - F. 02/18/ Elidia, 2012 M.D. Lipitor 10/29/ Hx Tablets 5mg. 30tabs 1 tab po Maurice 2012 - hs F. 02/18/ Elidia, 2012 M.D. Lipitor 10/15/ Hx Tablets 20mg one tab po Maurice 2012 - qhs hold F. 10/29/ as of Elidia, 2012 1.31.13 M.D. Amiodarone HCL 09/01/ Hx Tablets 200mg 1/2 po qd Maurice 2011 - . Elidia, 2012 M.D. Metoprolol 08/17/ Hx Tablets ER 25mg 60tabs 1/2 po qd. Maurice Succinate ER 2011 - 24HR F. Elidia, 2011 M.D. Amiodarone HCL 08/14/ Hx Tablets 200mg 90tabs one po qd. Maurice 2011 - . Elidia, 2011 M.D. Xarelto 06/05/ Hx Tablets 20mg 90tabs 1 by mouth Maurice 2011 - every day F. Elidia, 2018 M.D. Xarelto 12/03/ Hx Tablets 20mg 90tabs 1 po qd Maurice 2011 - . Elidia, 2011 M.D. Enoxaparin 11/17/ Hx Solution Unknown subq q12 h Maurice Sodium 2011 - . Elidia, 2011 M.D. Metoprolol 11/17/ Hx Tablets 25mg 180tab 1/2 po bid Maurice Tartrate 2011 - s adolfo, 2011 M.D. Metoprolol 11/17/ Hx Tablets 25mg 45tabs 1 po qam Maurice Tartrate 2011 - and 1/2 po F. 08/17/ qpm Elidia, 2011 M.D. Aspirin 05/03/ Hx Tablets DR 81mg 1 po qd Maurice 2009 - . Elidia, 2011 M.D. Metoprolol 05/03/ Hx Tablets 25mg 30tabs 1 po qd Maurice Tartrate 2009 - until . 12/04/ /09/07 Elidia, 2010 and then M.D. qod until 05/14 and then discontinu e. Potassium 05/03/ Hx Tablets ER 20Meq 30tabs 1 by mouth Maurice Chloride ER 2009 - every day . Elidia, 2018 M.D. Lipitor 01/08/ Hx Tablets 20mg 90tabs one tab po Maurice 2009 - qhs F. 10/15/ user, 2012 M.D. Lipitor 06/12/ Hx Tablets 10mg 45tabs 1/2 po qhs Maurice 2008 - . user, 2009 M.D. Verapamil HCL 03/07/ Hx Tablets ER 180mg 1/2 po qd Maurice CR 2008 - . user, 2008 M.Yong. Covera-hs 02/09/ Hx Tablets ER 180mg 90tabs 1 po qd Maurice 2008 - 24HR F. user, 2008 M.D. Verapamil HCL 02/09/ Hx Tablets ER 180mg 90tabs 1 po qd Maurice CR 2008 - . user, 2008 Twin.Yong. Cartizem 01/17/ Hx Caps ER 120mg 90caps 1 po qd Maurice 2008 - 24HR F. user, 2008 M.D. Lipitor 01/12/ Hx Tablets 20mg 30tabs one tab po Maurice 2008 - qhs . user, 2008 M.D. Metoprolol 01/04/ Hx Tablets 50mg 60tabs 1/2 po qd Maurice Tartrate 2008 - x 1 week F. d/c Agauser, 200801/24/09 M.D. Aspirin 12/05/ Hx Tablets 325mg 1 po qd Maurice 2008 - . user, 2009 M.D. Metoprolol 12/05/ Hx Tablets 25mg 180tab 1 po bid Maurice Tartrate 2008 - s . user, 2008 M.D. Colazal 12/01/ Hx Capsules 750mg 2 po bid 2008 - ECHO 11/29/ Schedule 2018 Calcium-Vitamin 12/01/ Hx Tablets 600mg 2 daily 2008 - ECHO 06/21/ Schedule 2012 Warfarin Sodium 12/01/ Hx Tablets 7.5mg 30tabs as [place] 2008 - directed ECHO Schedule 2008 Cardizem CD 12/01/ Hx Caps ER 120mg 30caps 1 po qd Charmaine 2008 - 24HR S. 12/05/ Gagan Jarvis M.D. Folic Acid 00/00/ Hx Tablets 1mg 60tabs 1 po qd Unknown 0000 - 2009 Zantac /00/ Hx Tablets 300mg 90tabs 1 po qd Unknown 0000 - prn 2011 Vit. E / Hx 400U 1 po qd Unknown - 2008 Multi-Day 00/00/ Hx Tablets 1 po qd Unknown Vitamins - 2008 Prevacid / Hx Capsules 30mg 90caps 1 po qd Unknown 0000 - DR 2018 Lopressor / Hx Tablets 50mg 1 po bid Unknown - 2008 Metoprolol / Hx Tablets 50mg 60tabs 1 po bid Unknown Tartrate - 2008 Multi Vitamin / Hx Tablets 100tab 1 po qd Unknown 0000 - s 2018 Toprol / Hx Dose one po bid Unknown 0000 - Unknown 2009 Glyburide / Hx Tablets 5mg 1 tablet Unknown 0000 - bid 2018 Buspar / Hx Tablets 5mg 30tabs 1 po qd Unknown 0000 - prn 2018 Aldactone / Hx Tablets 25mg 45tabs 1/2 by Maurice 0000 - mouth F. 11/29/ every day Chelle Brenner M.D. Benefiber / Hx Powder 90unit as ordered Unknown 0000 - s 2013 Onglyza 00/ Hx Tablets 5mg 30tabs once daily Unknown - 2014 Cordarone / Hx Tablets 200mg 1 po bid Unknown 0000 - then 1 06/05/ tablet x 2 2011 weeks then D/C Altace / Hx Capsules 5mg 90caps 1 po qd Maurice 0000 - F. 12/30/ Elidia 2013 Cornelius Metamucil / Hx prn Unknown - 2018 Ventolin HFA / Hx Aerosol 108(90Base 2 puffs by Unknown 0000 - ) mcg/Act mouth four 11/29/ times a 2019 day as needed Asmanex / Hx Aerosol 220mcg/Inh inhale 1 Unknown Twisthaler 30 0000 - puff once Me Tered Doses 03/17/ daily 2019 Losartan 00/00/ Hx Tablets 25mg 1 by mouth Unknown Potassium 0000 - every day 2018 Carvedilol / Hx Tablets 25mg 1 tab by Unknown 0000 - mouth twice a 2018 day Trulicity / Hx Solution 0.75mg/0.5 inject Unknown 0000 - Pen-Inject ML 0.75mg once a 2018 week Lantus / Hx Solution 100Unit/ML 15 units Unknown 0000 - sq every 11/29/ in the 2018 morning Clopidogrel / Hx Tablets 75mg 1 by mouth Unknown Bisulfate 0000 - every day 2018 Immunizations Description No Information Available Vital Signs Date Vital Result Comment 11/30/2018 2:10pm Height 65 inches 5'5" Weight 150.25 lb Heart Rate 70 /min BP Systolic 120 mmHg BP Diastolic 72 mmHg BMI (Body Mass Index) 25.0 kg/m2 11/19/2018 11:35am Weight 151.00 lb Heart Rate 72 /min BP Systolic 126 mmHg BP Diastolic 76 mmHg Respiratory Rate 16 /min 09/17/2018 8:39am Height 65.5 inches 5'5.50" Weight [...] Date Facility Test Result H/L Range Note Urinalysis Profile 11/23/2018 [facility] Urine Color Yellow [address] [place] [address] [phone] Urine Appearance Clear Urine Specific [place] 1.018 N 1.010-1.030 Urine pH 6.0 N 5-9 Urine Urobilinogen Negative Negative Urine Ketones Negative Negative Urine Protein Negative Negative Urine Leukocytes Negative Negative Urine Blood Negative Negative * * Abnormal Negative 1 Urine Nitrite Negative Negative Urine Bilirubin Negative Negative Urine Glucose 2+(150 mg/dL) Abnormal Negative Urine Culture And 11/23/2018 [facility] Urine Culture SEE RESULT [address] [place] [address] [phone] CBC Auto Diff 11/23/2018 [facility] White Blood 9.9 10^3/uL N 3.5-[address] Count .8 [place] [address] [phone] Red Blood Count 3.42 10^6/uL Low 4.00-5.40 Hemoglobin 10.5 g/dL Low 12.0-16.0 Hematocrit 31 % Low 35-47 Mean Corpuscular Volume 90 fL N 80-97 Mean Corpuscular Hemoglobin 31 pg N 27-31 Mean Corpuscular HGB Conc 34 g/dL N 31-36 Red Cell Distribution Width 20 % High 10.5-15 Platelet Count 194 10^3/uL N 150-450 Mean Platelet Volume 8.7 fL N 7.4-10.4 Abs Neutrophils 6.0 10^3/uL N 1.5-7.7 Abs Lymphocytes 2.7 10^3/uL N 1.0-4.8 Abs Monocytes 1.0 10^3/uL High 0-0.8 Abs Eosinophils 0.2 10^3/uL N 0-0.6 Abs Basophils 0 10^3/uL N 0-0.2 Abs Nucleated RBC 0 10^3/uL Granulocyte % 60.7 % Lymphocyte % 27.5 % Monocyte % 9.8 % Eosinophil % 1.7 % Basophil % 0.3 % Nucleated Red Blood Cells % 0 Basic Metabolic Panel 11/23/2018 [facility] Sodium 138 mmol/L N 135-[address] [place] [address] [phone] Potassium 4.2 mmol/L N 3.5-5.0 Chloride 103 mmol/L N 101-111 Co2 Carbon Dioxide 24 mmol/L N 22-32 Anion Gap 11 mmol/L N 2-11 Glucose 111 mg/dL High 70-100 Blood Urea Nitrogen 21 mg/dL N 6-24 Creatinine 1.03 mg/dL High 0.51-0.95 BUN/Creatinine Ratio 20.4 High 8-20 Calcium 9.7 mg/dL N 8.6-10.3 Egfr Non- 50.9 >60 Egfr 61.6 >60 4 Laboratory test 11/23/2018 [facility] C Reactive 18.46 mg/L High <8.01 5 [place] [address] [phone] Urinalysis 11/06/2018 [facility] [place] [address] [phone] Urine Appearance Cloudy Urine Specific [place] 1.020 N 1.010-1.030 Urine pH 5.0 N 5-9 Urine Urobilinogen Negative Negative Urine Ketones Negative Negative Urine Protein Negative Negative Urine Leukocytes Negative Negative Urine Blood Negative Negative * * Abnormal Negative 6 Urine Nitrite Negative Negative Urine Bilirubin Negative Negative Urine Glucose 1+(50 mg/dL) Abnormal Negative Laboratory 09/17/2018 [facility] Erythropoietin 18.8 Abnormal 2.6 - 7 test finding [facility] mIU/mL 18.5 [place] [address] [phone] Lipid Profile 09/17/2018 [facility] Triglycerides 78 mg/dL 8 (Trig/Chol/HDL ) [place] [address] [phone] Cholesterol 125 mg/dL 9 HDL Cholesterol 44.7 mg/dL 10 LDL Cholesterol 65 mg/dL 11 Protein 09/17/2018 [facility] Total 7.0 g/dL 6.3 - Electrophoresis [facility] Protein(Pep) 7.9 [place] [address] [phone] Albumin 3.4 g/dL 3.4-4.7 Alpha-1 Globulin 0.2 g/dL 0.1-0.3 Alpha-2 Globulin 1.1 g/dL Abnormal 0.6-1.0 Beta Globulin 1.4 g/dL Abnormal 0.7-1.2 Gamma Globulin 0.9 g/dL 0.6-1.6 Albumin/Globulin Ratio 0.95 Impression See Comment 12 Laboratory test finding 09/17/2018 [facility] LDH 213 U/L N 140-271 [place] [address] [phone] Iron & Iron Binding 09/17/2018 [facility] Iron 34 g/dL Low 50-212 [place] [address] [phone] Unsaturated Iron Binding < 432 g/dL Total Iron Binding Capacity 447 g/dL N 250-450 Transferrin 319 mg/dL N 203-362 % Iron Saturation 8 % Low 15-55 Laboratory test 09/17/2018 [facility] C Reactive 9.73 mg/L High <8.[address] [place] [address] [phone] Ferritin 10.4 ng/mL Low 11-307 Hemoglobin A1c (Glyco HGB) 7.9 % High 4.0-5.6 13 Comp Metabolic Panel 09/17/2018 [facility] Sodium 139 mmol/L N 135-[address] [place] [address] [phone] Potassium 4.8 mmol/L N 3.5-5.0 Chloride 107 mmol/L N 101-111 Co2 Carbon Dioxide 25 mmol/L N 22-32 Anion Gap 7 mmol/L N 2-11 Glucose 174 mg/dL High 70-100 Blood Urea Nitrogen 25 mg/dL High 6-24 Creatinine 1.23 mg/dL High 0.51-0.95 BUN/Creatinine Ratio 20.3 High 8-20 Calcium 10.0 mg/dL N 8.6-10.3 Total Protein 6.9 g/dL N 6.4-8.9 Albumin 3.8 g/dL N 3.2-5.2 Globulin 3.1 g/dL N 2-4 Albumin/Globulin Ratio 1.2 N 1-3 Total Bilirubin 0.40 mg/dL N 0.2-1.0 Alkaline Phosphatase 81 U/L N 34-104 Alt 8 U/L N 7-52 Ast 16 U/L N 13-39 Egfr Non- 41.5 >60 Egfr 50.2 >60 14 CBC Auto Diff 09/17/2018 [facility] White Blood 8.9 10^3/uL N 3.5-10.[address] [place] [address] [phone] Red Blood Count 3.03 10^6/uL Low 4.00-5.40 Hemoglobin 8.3 g/dL Low 12.0-16.0 Hematocrit 26 % Low 35-47 Mean Corpuscular Volume 86 fL N 80-97 Mean Corpuscular Hemoglobin 28 pg N 27-31 Mean Corpuscular HGB Conc 32 g/dL N 31-36 Red Cell Distribution Width 17 % High 10.5-15 Platelet Count 236 10^3/uL N 150-450 Mean Platelet Volume 8.1 fL N 7.4-10.4 Abs Neutrophils 5.9 10^3/uL N 1.5-7.7 Abs Lymphocytes 2.2 10^3/uL N 1.0-4.8 Abs Monocytes 0.5 10^3/uL N 0-0.8 Abs Eosinophils 0.2 10^3/uL N 0-0.6 Abs Basophils 0 10^3/uL N 0-0.2 Abs Nucleated RBC 0 10^3/uL Granulocyte % 66.8 % Lymphocyte % 24.9 % Monocyte % 6.0 % Eosinophil % 1.8 % Basophil % 0.5 % Nucleated Red Blood Cells % 0 Basic Metabolic 10/22/2014 [facility] Sodium 132 mmol/L Low 133-[address] [place] [address] [phone] Potassium 4.5 mmol/L N 3.5-5.0 Chloride 99 mmol/L Low 101-111 Co2 Carbon Dioxide 26 mmol/L N 22-32 Anion Gap 7 mmol/L N 2-11 Glucose 286 mg/dL High 70-100 Blood Urea Nitrogen 19 mg/dL N 6-24 Creatinine 0.96 mg/dL High 0.51-0.95 BUN/Creatinine Ratio 19.8 N 8-20 Calcium 9.8 mg/dL N 8.6-10.3 Egfr Non- 55.8 N >60 Egfr 71.7 N >60 16 Cath Panel 10/17/2014 [facility] Activated 29.1 seconds N 24.0 -36.[address] [place] [address] Time [phone] CBC Auto 10/17/2014 [facility] White Blood 9.2 10^3/uL N 4.8- 10.[address] [place] [address] [phone] Red Blood Count 4.21 10^6/uL N 4.0-5.4 [...] Nucleated Red Blood Cells % 0.1 N Basic Metabolic Panel 10/17/2014 [facility] Sodium 136 mmol/L N 133-145 [address] [place] [address] [phone] Potassium 4.0 mmol/L N 3.5-5.0 Chloride 103 mmol/L N 101-111 Co2 Carbon Dioxide 24 mmol/L N 22-32 Anion Gap 9 mmol/L N 2-11 Glucose 102 mg/dL High 70-100 Blood Urea Nitrogen 21 mg/dL N 6-24 Creatinine 0.88 mg/dL N 0.51-0.95 BUN/Creatinine Ratio 23.9 High 8-20 Calcium 10.5 mg/dL High 8.6-10.3 Egfr Non- 61.7 N >60 Egfr 79.3 N >60 17 Inr/Protime 10/17/2014 [facility] Inr 1.25 High 0.78-1.[address] [place] [address] [phone] Order 08/30/2014 [facility] Echocardiogram <pending [address] > [place] [address] [phone] Basic Metabolic 01/19/2014 [facility] Sodium 137 N 133-145 [address] mmol/[place] [address] [phone] Potassium 4.4 mmol/L N 3.7-5.6 Chloride 102 mmol/L N 101-111 Co2 Carbon Dioxide 26 mmol/L N 22-32 Anion Gap 9 mmol/L N 2-11 Glucose 250 mg/dL High 70-100 Blood Urea Nitrogen 21 mg/dL N 6-24 Creatinine 0.95 mg/dL N 0.51-0.95 BUN/Creatinine Ratio 22.1 High 8-20 Calcium 9.8 mg/dL N 8.6-10.3 Egfr Non- 56.6 N >60 Egfr 72.8 N >60 20 CBC Auto Diff 01/19/2014 [facility] White Blood 8.1 10^3/uL N 4.8-10.[address] [place] [address] [phone] Red Blood Count 3.80 10^6/uL Low 4.0-5.4 [...] Nucleated Red Blood Cells % 0 N Laboratory test 12/20/2013 [facility] Troponin I 0.02 ng/mL N <0.03 [address] [place] [address] [phone] Laboratory test 08/25/2013 [facility] Creatine 75 U/L 0-200 [address] [place] [address] [phone] TSH (Thyroid Stimulating Horm) 3.35 miu/mL 0.34-5.60 23 CBC Auto Diff 08/25/2013 [facility] White Blood 9.0 10^3/uL 4.8-10.[address] [place] [address] [phone] Red Blood Count 3.96 10^6/uL Low 4.0-5.4 [...] Nucleated Red Blood Cells % 0.1 Lipid Profile 08/25/2013 [facility] Triglycerides 144 mg/dL 40-200 (Trig/Chol/HDL) [address] [place] [address] [phone] Cholesterol 172 mg/dL Less than 200 HDL Cholesterol 46 mg/dL 40-60 24 Cholesterol/HDL Ratio 3.7 Average 1-4.44 LDL Cholesterol 97.2 Less Than 100 25 Comp Metabolic Panel 08/25/2013 [facility] Sodium 136 mmol/L 133-145 [address] [place] [address] [phone] Potassium 4.7 mmol/L 3.5-5.0 Chloride 104 mmol/L [...] Egfr Non- 53.3 >60 Egfr 68.6 >60 26 Lipid Panel - 12/22/2012 [facility] Creatine Kinase 60 U/L 0- 200 27 JFM [address] [place] [address] [phone] Lipid Profile 12/22/2012 [facility] Triglycerides 100 mg/dL 40-200 (Trig/Chol/HDL) [address] [place] [address] [phone] Cholesterol 205 mg/dL High Less than 200 HDL Cholesterol 46 mg/dL 40-60 28 Cholesterol/HDL Ratio 4.5 Average High 1-4.44 LDL Cholesterol 139.0 mg/dL High Less Than 100 29 Comp Metabolic Panel 12/22/2012 [facility] Sodium 139 mmol/L 133-145 [address] [place] [address] [phone] Potassium 4.4 mmol/L 3.5-5.0 Chloride 104 mmol/L [...] Egfr Non- 43.3 >60 Egfr 55.7 >60 30 Laboratory 12/22/2012 [facility] TSH (Thyroid 7.22 High 0.34- 5.60 31 test finding [address] Stimulating miu/[place] [address] Horm) [phone] Free T4 0.69 ng/mL 0.61-1.24 32 Laboratory 08/14/2012 [facility] TSH (Thyroid 8.09 High 0.34- 5.60 test finding [address] Stimulating MIU/[place] [address] Horm) [phone] Comp Metabolic 08/14/2012 [facility] Sodium 138 mmol/L 133- [address] [place] [address] [phone] Potassium 4.0 mmol/L 3.5-5.0 Chloride 106 mmol/L [...] Egfr Non- 60.4 >60 Egfr 77.7 >60 33 CBC No Diff 08/14/2012 [facility] White Blood 9.6 10^3/uL 4.8 -10.[address] [place] [address] [phone] Red Blood Count 4.10 10^6/uL 4.0-5.4 Hemoglobin 12.7 g/dL 12.0-16.0 Hematocrit 38 % 35-47 Mean Corpuscular Volume 93 fL 80-97 Mean Corpuscular Hemoglobin 31 pg 27-31 Mean Corpuscular HGB Conc 34 g/dL 31-36 Red Cell Distribution Width 14 % 10.5-15 Platelet Count 234 10^3/uL 150-450 Mean Platelet Volume 8 um3 7.4-10.4 Comp Metabolic Panel 06/11/2012 [facility] Sodium 140 mmol/L 135-[address] [place] [address] [phone] Potassium 4.3 mmol/L 3.5-5.0 Chloride 105 mmol/L 101-111 Co2 (Carbon Dioxide) 27.0 mmol/L 22-32 Anion Gap 8.0 mmol/L 2-11 35 Glucose 157 mg/dL High 70-100 BUN 20 mg/dL 6-24 Creatinine 1.1 mg/dL 0.50-1.40 One Over Creatinine 0.90 BUN/Creatinine Ratio 18.2 8-20 Calcium 10.0 mg/dL High 8.1-9.9 Total Protein 6.3 GM/DL 6.2-8.1 Albumin 4.0 GM/DL 3.2-5.2 Globulin 2.3 GM/DL 2-4 Albumin/Globulin Ratio 1.7 1-3 Bilirubin Total 0.7 mg/dL 0.4-1.5 36 Alkaline Phosphatase 80 U/L 30-110 Alt (SGPT) 19 U/L 14-54 Ast (Sgot) 26 U/L 12-42 eGFR Non- 47.9 > 60 eGFR 61.6 > 60 37 Lipid Profile 06/11/2012 [facility] Triglyceride 119 mg/dL 40 -200 (Trig/Chol/HDL) [address] [place] [address] [phone] Cholesterol 154 mg/dL Less Than 200 38 High Density Lipoprotein 49 mg/dL 40-60 39 Cholesterol/HDL Ratio 3.14 AVERAGE 1-4.44 Low Density Lipoprotein 81 mg/dL Less Than 100 40 Laboratory test 06/11/2012 [facility] CPK (Creatine 65 U/L 0- [address] Kinase) [place] [address] [phone] CBC Auto Diff 06/11/2012 [facility] White Blood 7.6 CUMM 4.8- 10.[address] [place] [address] [phone] Red Cell Count 3.92 CUMM Low 4.2-5.4 [...] Eosinophils 0.2 0-0.6 Abs Basophils 0 0-0.2 Arterial Blood Gas 01/17/2012 [facility] PH 7.34 Low 7.35- 7.[address] [place] [address] [phone] Pco2 43 mmHg 35-45 Po2 49 mmHg Low 80-100 42 O2 Saturation 85.1 % Low 95-98 Base Excess -2.6 Low -2.0-2.0 Bicarbonate 22.6 mmol/L Arterial Blood Gas 01/17/2012 [facility] PH 7.40 7.35-7.[address] [place] [address] [phone] Pco2 37 mmHg 35-45 Po2 100 mmHg 80-100 O2 Saturation 98.8 % High 95-98 Base Excess -1.6 -2.0-2.0 Bicarbonate 23.7 mmol/L Venous Blood Gas 01/17/2012 [facility] PH 7.33 Low 7.35-7.[address] [place] [address] [phone] Pco2 44 mmHg 35-45 Po2 40 mmHg Low 80-100 O2 Saturation 74.1 % Low 95-98 Base Excess -2.8 Low -2.0-2.0 45 Bicarbonate 22.2 mmol/L CBC Auto Diff 01/15/2012 [facility] White Blood 8.2 CUMM 4.8- 10.[address] [place] [address] [phone] Red Cell Count 3.93 CUMM Low 4.2-5.4 [...] Basophils 0 0-0.2 Basic Metabolic Panel 01/15/2012 [facility] Sodium 137 mmol/L 135-145 [address] [place] [address] [phone] Potassium 4.5 mmol/L 3.5-5.0 Chloride 104 mmol/L 101-111 Co2 (Carbon Dioxide) 29.0 mmol/L 22-32 Anion Gap 4.0 mmol/L 2-11 46 Glucose 268 mg/dL High 70-100 BUN 22 mg/dL 6-24 Creatinine 0.9 mg/dL 0.50-1.40 One Over Creatinine 1.11 BUN/Creatinine Ratio 24.4 High 8-20 Calcium 9.8 mg/dL 8.1-9.9 eGFR Non- 60.6 > 60 eGFR 77.9 > 60 47 Protime 01/15/2012 [facility] Inr 1.07 0.88-1.13 48 [address] [place] [address] [phone] Protime 12.8 SEC 10.3-13.5 49 Laboratory test 01/15/2012 [facility] TSH 2.77 MIU/ML 0.34- 5.60 finding [address] [place] [address] [phone] Lipid Panel - 12/25/2011 [facility] CPK 55 U/L 0-[address] ([place] [address] Kinase) [phone] Comp Metabolic 12/25/2011 [facility] Sodium 139 mmol/L 135- [address] [place] [address] [phone] Potassium 4.2 mmol/L 3.5-5.0 Chloride 104 mmol/L 101-111 Co2 (Carbon Dioxide) 27.0 mmol/L 22-32 Anion Gap 8.0 mmol/L 2-11 50 Glucose 218 mg/dL High 70-100 BUN 17 mg/dL 6-24 Creatinine 0.8 mg/dL 0.50-1.40 One Over Creatinine 1.25 BUN/Creatinine Ratio 21.3 High 8-20 Calcium 9.8 mg/dL 8.1-9.9 Total Protein 7.0 GM/DL 6.2-8.1 Albumin 4.1 GM/DL 3.2-5.2 Globulin 2.9 GM/DL 2-4 Albumin/Globulin Ratio 1.4 1-3 Bilirubin Total 0.8 mg/dL 0.4-1.5 51 Alkaline Phosphatase 83 U/L 30-110 Alt (SGPT) 31 U/L 14-54 Ast (Sgot) 43 U/L High 12-42 eGFR Non- 69.4 > 60 eGFR 89.2 > 60 52 Lipid Profile 12/25/2011 [facility] Triglyceride 149 mg/dL 40 -200 (Trig/Chol/HDL) [address] [place] [address] [phone] Cholesterol 169 mg/dL Less Than 200 53 High Density Lipoprotein 44 mg/dL 40-60 54 Cholesterol/HDL Ratio 3.84 AVERAGE 1-4.44 Low Density Lipoprotein 95 mg/dL Less Than 100 55 CBC Auto Diff 12/25/2011 [facility] White Blood 8.1 CUMM 4.8- 10.[address] [place] [address] [phone] Red Cell Count 4.12 CUMM Low 4.2-5.4 [...] Abs Basophils 0 0-0.2 MRSA/Vre Screen 10/22/2011 [facility] M <SEE [address] NOTE> [place] [address] [phone] Comp Metabolic 08/20/2011 [facility] Sodium 139 mmol/L 135-[address] [place] [address] [phone] Potassium 4.4 mmol/L 3.5-5.0 Chloride 104 mmol/L 101-111 Co2 (Carbon Dioxide) 27.0 mmol/L 22-32 Anion Gap 8.0 mmol/L 2-11 57 Glucose 212 mg/dL High 70-100 BUN 18 mg/dL 6-24 Creatinine 0.9 mg/dL 0.50-1.40 One Over Creatinine 1.11 BUN/Creatinine Ratio 20.0 8-20 Calcium 9.6 mg/dL 8.1-9.9 Total Protein 6.6 GM/DL 6.2-8.1 Albumin 4.0 GM/DL 3.2-5.2 Globulin 2.6 GM/DL 2-4 Albumin/Globulin Ratio 1.5 1-3 Bilirubin Total 0.7 mg/dL 0.4-1.5 58 Alkaline Phosphatase 80 U/L 30-110 Alt (SGPT) 29 U/L 14-54 Ast (Sgot) 38 U/L 12-42 eGFR Non- 60.6 > 60 eGFR 77.9 > 60 59 Lipid Profile 08/20/2011 [facility] Triglyceride 134 mg/dL 40 -200 (Trig/Chol/HDL) [address] [place] [address] [phone] Cholesterol 158 mg/dL Less Than 200 60 High Density Lipoprotein 45 mg/dL 40-60 61 Cholesterol/HDL Ratio 3.51 AVERAGE 1-4.44 Low Density Lipoprotein 86 mg/dL Less Than 100 62 Laboratory test 08/20/2011 [facility] CPK (Creatine 80 U/L 0- [address] Kinase) [place] [address] [phone] CBC Auto Diff 08/20/2011 [facility] White Blood 7.5 CUMM 4.8- 10.[address] [place] [address] [phone] Red Cell Count 3.93 CUMM Low 4.2-5.4 [...] Abs Basophils 0 0-0.2 Laboratory test 08/20/2011 [facility] TSH 4.42 MIU/ML 0.34- 5.[address] [place] [address] [phone] Magnesium 2.2 mg/dL 1.7-2.6 Lipid Panel - 03/12/2011 [facility] CPK (Creatine 104 U/L 0- [address] Kinase) [place] [address] [phone] CMP Panel 03/12/2011 [facility] Sodium 139 mmol/L 135-[address] [place] [address] [phone] Potassium 4.3 mmol/L 3.5-5.0 Chloride 105 mmol/L 101-111 Co2 (Carbon Dioxide) 27.0 mmol/L 22-32 Anion Gap 7.0 mmol/L 2-11 63 Glucose 200 mg/dL High 70-100 BUN 21 mg/dL 6-24 Creatinine 0.90 mg/dL 0.50-1.40 One Over Creatinine 1.10 BUN/Creatinine Ratio 23.3 High 8-20 Calcium 10.1 mg/dL High 8.1-9.9 Total Protein 6.7 GM/DL 6.2-8.1 Albumin 4.2 GM/DL 3.2-5.2 Globulin 2.5 GM/DL 2-4 Albumin/Globulin Ratio 1.7 1-3 Bilirubin Total 0.9 mg/dL 0.4-1.5 64 Alkaline Phosphatase 85 U/L 30-110 Alt (SGPT) 27 U/L 14-54 Ast (Sgot) 39 U/L 12-42 eGFR Non- 60.7 > 60 eGFR 78.1 > 60 65 Lipid Panel 03/12/2011 [facility] Triglyceride 125 mg/dL 40- 200 [address] [place] [address] [phone] Cholesterol 158 mg/dL Less Than 200 66 High Density Lipoprotein 48 mg/dL 40-60 67 Cholesterol/HDL Ratio 3.29 AVERAGE 1-4.44 Low Density Lipoprotein 85 mg/dL Less Than 100 68 Basic Metabolic Panel 12/04/2010 [facility] Sodium 135 mmol/L 135-145 [address] [place] [address] [phone] Potassium 4.2 mmol/L 3.5-5.0 Chloride 102 mmol/L 101-111 Co2 (Carbon Dioxide) 27.0 mmol/L 22-32 Anion Gap 6.0 mmol/L 2-11 69 Glucose 306 mg/dL High 70-100 BUN 20 mg/dL 6-24 Creatinine 1.00 mg/dL 0.50-1.40 One Over Creatinine 1.00 BUN/Creatinine Ratio 20.0 8-20 Calcium 9.7 mg/dL 8.1-9.9 eGFR Non- 53.8 > 60 eGFR 69.1 > 60 70 Laboratory test 11/10/2010 [facility] Magnesium 2.1 mg/dL 1.7 -2.[address] [place] [address] [phone] Basic Metabolic 11/10/2010 [facility] Sodium 136 mmol/L 135- 145 Panel [address] [place] [address] [phone] Potassium 4.1 mmol/L 3.5-5.0 Chloride 101 mmol/L 101-111 Co2 (Carbon Dioxide) 27.0 mmol/L 22-32 Anion Gap 8.0 mmol/L 2-11 71 Glucose 174 mg/dL High 70-100 BUN 22 mg/dL 6-24 Creatinine 0.80 mg/dL 0.50-1.40 One Over Creatinine 1.20 BUN/Creatinine Ratio 27.5 High 8-20 Calcium 9.6 mg/dL 8.1-9.9 eGFR Non- 69.6 > 60 eGFR 89.4 > 60 72 Lipid Panel - 08/22/2010 [facility] CPK (Creatine 121 U/L 0- [address] Kinase) [place] [address] [phone] CMP Panel 08/22/2010 [facility] Sodium 138 mmol/L 135-145 [address] [place] [address] [phone] Potassium 4.4 mmol/L 3.5-5.0 Chloride 105 mmol/L 101-111 Co2 (Carbon Dioxide) 27.0 mmol/L 22-32 Anion Gap 6.0 mmol/L 2-11 73 Glucose 165 mg/dL High 70-100 74 BUN 21 mg/dL 6-24 Creatinine 0.90 mg/dL 0.50-1.40 One Over Creatinine 1.10 BUN/Creatinine Ratio 23.3 High 8-20 Calcium 9.6 mg/dL 8.1-9.9 Total Protein 7.0 GM/DL 6.2-8.1 Albumin 4.0 GM/DL 3.2-5.2 Globulin 3.0 GM/DL 2-4 Albumin/Globulin Ratio 1.3 1-3 Bilirubin Total 0.6 mg/dL 0.4-1.5 75 Alkaline Phosphatase 82 U/L 30-110 Alt (SGPT) 20 U/L 14-54 Ast (Sgot) 32 U/L 12-42 eGFR Non- 64.5 > 60 eGFR 78.1 > 60 76 Lipid Panel 08/22/2010 [facility] Triglyceride 89 mg/dL 40- [address] [place] [address] [phone] Cholesterol 148 mg/dL Less Than 200 77 High Density Lipoprotein 49 mg/dL 40-60 78 Cholesterol/HDL Ratio 3.02 AVERAGE 1-4.44 Low Density Lipoprotein 81 mg/dL Less Than 100 79 Basic Metabolic Panel 06/05/2010 [facility] Sodium 139 mmol/L 135-[address] [place] [address] [phone] Potassium 4.2 mmol/L 3.5-5.0 Chloride 105 mmol/L 101-111 Co2 (Carbon Dioxide) 24.0 mmol/L 22-32 Anion Gap 10.0 mmol/L 2-11 80 Glucose 161 mg/dL High 70-100 81 BUN 18 mg/dL 6-24 Creatinine 0.80 mg/dL 0.50-1.40 One Over Creatinine 1.20 BUN/Creatinine Ratio 22.5 High 8-20 Calcium 9.2 mg/dL 8.1-9.9 eGFR Non- 73.9 > 60 eGFR 89.4 > 60 82 Protime 04/07/2010 [facility] Inr 2.79 High 0.97-1.[address] [place] [address] [phone] Protime 33.3 SEC High 11.5-12.2 84 CBC With 04/05/2010 [facility] White Blood 8.5 CUMM 4.8-10.[address] [place] [address] [phone] Red Cell Count 4.01 CUMM Low 4.2-5.4 Hemoglobin 12.4 g/dL 12.0-16.0 Hematocrit 37 % 35-47 Mean Corpuscular Volume 91 um3 79-97 Mean Corpuscular Hemoglob 31 pg 27-31 Mean Corpuscular HGB Cone 34 g/dL 32-36 Redcell Distribution WDTH 15 % 10.5-15 Platelet Count 236 CUMM 150-450 Mean Platelet Volume 8.3 um3 7.4-10.4 85 Manual 04/05/2010 [facility] Polysegmented 36 % Low 38-[address] [place] [address] [phone] Lymphocyte 56 % High 25-47 Monocyte 7 % 0-13 Eosinophil 1 % 0-6 Absolute Neutrophil Count 3.0 Manual Diff Comments (SEE NOTE) 86 RBC Morphology NORMAL MRSA/Vre Screen 04/04/2010 [facility] MRSA/Vre NFICU 87, [address] [place] [address] [phone] Lipid Panel - 02/16/2010 [facility] CPK (Creatine 101 U/L 0- [address] Kinase) [place] [address] [phone] Comp Metabolic 02/16/2010 [facility] Sodium 142 mmol/L 135-[address] [place] [address] [phone] Potassium 4.1 mmol/L 3.5-5.0 Chloride 108 mmol/L 101-111 Co2 (Carbon Dioxide) 27.0 mmol/L 22-32 Anion Gap 7.0 mmol/L 2-11 89 Glucose 154 mg/dL High 70-100 90 BUN 16 mg/dL 6-24 Creatinine 1.00 mg/dL 0.50-1.40 One Over Creatinine 1.00 BUN/Creatinine Ratio 16.0 8-20 Calcium 9.4 mg/dL 8.1-9.9 91 Total Protein 6.8 GM/DL 6.2-8.1 Albumin 4.0 GM/DL 3.2-5.2 Globulin 2.8 GM/DL 2-4 Albumin/Globulin Ratio 1.4 1-3 Bilirubin Total 0.6 mg/dL 0.4-1.5 92 Alkaline Phosphatase 74 U/L 30-110 Alt (SGPT) 18 U/L 14-54 Ast (Sgot) 35 U/L 12-42 eGFR Non- 57.3 > 60 eGFR 69.3 > 60 93 Lipid Profile 02/16/2010 [facility] Triglyceride 84 mg/dL 40- 200 (Trig/Chol/HDL) [address] [place] [address] [phone] Cholesterol 150 mg/dL Less Than 200 94 High Density Lipoprotein 51 mg/dL 40-60 95 Cholesterol/HDL Ratio 2.94 AVERAGE 1-4.44 Low Density Lipoprotein 82 mg/dL Less Than 100 96 Lipid Profile 08/16/2009 [facility] Triglyceride 122 mg/dL 40 -200 (Trig/Chol/HDL) [address] [place] [address] [phone] Cholesterol 182 mg/dL Less Than 200 97 High Density Lipoprotein 48 mg/dL 40-60 98 Cholesterol/HDL Ratio 3.79 AVERAGE 1-4.44 Low Density Lipoprotein 110 mg/dL High Less Than 100 99 Comp Metabolic Panel 08/16/2009 [facility] Sodium 139 mmol/L 135-[address] [place] [address] [phone] Potassium 3.9 mmol/L 3.5-5.0 Chloride 105 mmol/L 101-111 Co2 (Carbon Dioxide) 26.0 mmol/L 22-32 Anion Gap 8.0 mmol/L 2-11 100 Glucose 149 mg/dL High 70-100 101 BUN 19 mg/dL 6-24 Creatinine 0.80 mg/dL 0.50-1.40 One Over Creatinine 1.20 BUN/Creatinine Ratio 23.8 High 8-20 Calcium 9.5 mg/dL 8.1-9.9 102 Total Protein 6.6 GM/DL 6.2-8.1 Albumin 3.9 GM/DL 3.2-5.2 Globulin 2.7 GM/DL 2-4 Albumin/Globulin Ratio 1.4 1-3 Bilirubin Total 0.6 mg/dL 0.4-1.5 103 Alkaline Phosphatase 86 U/L 30-110 Alt (SGPT) 17 U/L 14-54 Ast (Sgot) 26 U/L 12-42 eGFR Non- 74.1 > 60 eGFR 89.7 > 60 104 Lipid Panel - 08/16/2009 [facility] CPK (Creatine 105 U/L 0- [address] Kinase) [place] [address] [phone] Lipid Profile 03/15/2009 [facility] Triglyceride 147 mg/dL 40 -200 (Trig/Chol/HDL [address] ) [place] [address] [phone] Cholesterol 169 mg/dL Less Than 200 105 High Density Lipoprotein 46 mg/dL 40-60 106 Cholesterol/HDL Ratio 3.67 AVERAGE 1-4.44 Low Density Lipoprotein 94 mg/dL Less Than 100 107 Comp Metabolic Panel 03/15/2009 [facility] Sodium 139 mmol/L 135-[address] [place] [address] [phone] Potassium 4.3 mmol/L 3.5-5.0 Chloride 106 mmol/L 101-111 Co2 (Carbon Dioxide) 25.0 mmol/L 22-32 Anion Gap 8.0 mmol/L 2-11 108 Glucose 136 mg/dL High 70-100 109 BUN 16 mg/dL 6-24 Creatinine 0.80 mg/dL 0.50-1.40 One Over Creatinine 1.20 BUN/Creatinine Ratio 20.0 8-20 Calcium 9.6 mg/dL 8.1-9.9 110 Total Protein 6.6 GM/DL 6.2-8.1 Albumin 3.9 GM/DL 3.2-5.2 Globulin 2.7 GM/DL 2-4 Albumin/Globulin Ratio 1.4 1-3 Bilirubin Total 0.7 mg/dL 0.4-1.5 111 Alkaline Phosphatase 90 U/L 30-110 Alt (SGPT) 14 U/L 14-54 Ast (Sgot) 24 U/L 12-42 Lipid Panel - 03/15/2009 [facility] CPK (Creatine 74 U/L 0- [address] Kinase) [place] [address] [phone] Laboratory test 01/11/2009 [facility] Magnesium 2.1 mg/dL 1.7 -2.[address] [place] [address] [phone] CBC With Manual 01/11/2009 [facility] White Blood 6.8 CUMM 4.8-10.[address] [place] [address] [phone] Red Cell Count 3.91 CUMM Low 4.2-5.4 [...] Count 3.9 Anisocytosis SLIGHT Laboratory test 01/11/2009 [facility] CPK (Creatine 97 U/L 0- 170 finding [address]) [place] [address] [phone] Lipid Profile 01/11/2009 [facility] Triglyceride 141 mg/dL 40 -200 (Trig/Chol/HDL) [address] [place] [address] [phone] Cholesterol 215 mg/dL High Less Than 200 112 High Density Lipoprotein 44 mg/dL 40-60 113 Cholesterol/HDL Ratio 4.89 AVERAGE High 1-4.44 Low Density Lipoprotein 143 mg/dL High Less Than 100 114 Comp Metabolic Panel 01/11/2009 [facility] Sodium 141 mmol/L 135-[address] [place] [address] [phone] Potassium 4.2 mmol/L 3.5-5.0 Chloride 108 mmol/L 101-111 Co2 (Carbon Dioxide) 26.0 mmol/L 22-32 Anion Gap 7.0 mmol/L 2-11 115 Glucose 137 mg/dL High 70-100 116 BUN 19 mg/dL 6-24 Creatinine 0.80 mg/dL 0.50-1.40 One Over Creatinine 1.20 BUN/Creatinine Ratio 23.8 High 8-20 Calcium 9.4 mg/dL 8.1-9.9 117 Total Protein 6.5 GM/DL 6.2-8.1 Albumin 3.7 GM/DL 3.2-5.2 Globulin 2.8 GM/DL 2-4 Albumin/Globulin Ratio 1.3 1-3 Bilirubin Total 0.5 mg/dL 0.4-1.5 Alkaline Phosphatase 72 U/L 30-110 Alt (SGPT) 17 U/L 14-54 Ast (Sgot) 25 U/L 12-42 CBC With Manual 12/05/2008 [facility] White Blood 8.7 CUMM 4.8-10.[address] [place] [address] [phone] Red Cell Count 4.11 CUMM Low 4.2-5.4 [...] RBC Morphology NORMAL Comp Metabolic Panel 12/05/2008 [facility] Sodium 140 mmol/L 135-[address] [place] [address] [phone] Potassium 4.4 mmol/L 3.5-5.0 Chloride 104 mmol/L 101-111 Co2 (Carbon Dioxide) 27.0 mmol/L 22-32 Anion Gap 9.0 mmol/L 2-11 119 Glucose 144 mg/dL High 70-100 120 BUN 23 mg/dL 6-24 Creatinine 0.90 mg/dL 0.50-1.40 One Over Creatinine 1.10 BUN/Creatinine Ratio 25.6 High 8-20 Calcium 9.8 mg/dL 8.1-9.9 121 Total Protein 6.8 GM/DL 6.2-8.1 Albumin 3.9 GM/DL 3.2-5.2 Globulin 2.9 GM/DL 2-4 Albumin/Globulin Ratio 1.3 1-3 Bilirubin Total 0.6 mg/dL 0.4-1.5 Alkaline Phosphatase 75 U/L 30-110 Alt (SGPT) 15 U/L 14-54 Ast (Sgot) 25 U/L 12-42 1 *Ascorbic acid is present which may interfere with detection of blood. 2 SEE RESULT BELOW Name: RYANNESONAL S : [address]: Mary Reza NP Acct: [id number] Unit: [id number] AGE: 83 Location: [facility] Re11/23/18 SEX: F Status: REG REF SPEC: [id number] ANIVAL: 11/23/18-[address]: Haley Hill DO REQ: [id number] RECD: 11/23/18 STATUS: COMP _ SOURCE: URINE SPDESC: ORDERED: Urine Culture QUERIES: Urine Source: Random Procedure Result Reported Site Urine Culture Final 11/24/18- 1607 ML No growth of clinically significant organisms * ML - Main Lab . END OF REPORT DEPARTMENT OF PATHOLOGY, [address] [place] [id number] Han Ayala M.D. Director [facility] # [id number] 4 Because ethnic data is not always [...] 5 Kidney failure <15 (or dialysis) 5 [id number] *Ascorbic acid is present which may interfere with detection of blood. 7 Test Performed by: [facility] [address] [place] [address] 8 Desirable: <150 Borderline High: 150-199 High: 200-499 Very High: >500 9 Desirable: <200 Borderline High: 200-239 High: >239 10 Low: <40 Desirable: 40-60 High: >60 11 Desirable: <100 Near Optimal: 100-129 Borderline High: 130-159 High: 160-189 Very High: >189 12 RESULT: No apparent monoclonal protein on serum electrophoresis. Test Performed by: [place] [id number] 13 Therapeutic target for the treatment of diabetes mellitus patients is <7% HBA1C, and in selective patients <6.0%. Please refer to [place] [employer] diabetic care guidelines for further information. 14 Because ethnic data is not always readily [...] 15-29 5 Kidney failure <15 (or dialysis) [address] FARAH WITH RESULTS.. NUMBER [phone]. THANK YOU! PLEASE CALL RESULTS TO DR FARAH AT [phone] 16 Because ethnic data is not always [...] 5 Kidney failure <15 (or dialysis) 17 Because ethnic data is not always readily [...] 15-29 5 Kidney failure <15 (or dialysis) 18 Please note: Effective October 12, 2014, the reference value for this test has changed due to the validation and activation of a new reagent lot number. 19 fsting in 2-3 weeks [facility] 20 Because ethnic data is not always readily [...] 15-29 5 Kidney failure <15 (or dialysis) 21 Reference Range and Interpretation: TnI (ng/mL) Interpretation Less Than 0.03 ng/mL Not supportive of diagnosis of NC 0.03 - 0.50 ng/mL Indeterminate: suggest serial studies if clinically indicated. Greater than 0.5 ng/mL Consistent with diagnosis of NC 22 FASTING 23 FASTING 24 HDL Interpretation: Undesirable: High Risk: Less than 40 mg/dL Desirable: Low Risk: Greater than 60 mg/dL 25 LDL Interpretation: Low Risk Optimal Level: LDL Less than 100 mg/dL Near or Above Optimal: LDL 100-129 mg/dL Borderline High Risk: LDL 130-159 mg/dL High Risk: LDL 160-189 mg/dL Very High Risk: LDL Greater than 189 mg/dL 26 Because ethnic data is not always [...] 5 Kidney failure <15 (or dialysis) 27 FASTING 28 HDL Interpretation: Undesirable: High Risk: Less than 40 MG/DL Desirable: Low Risk: Greater than 60 MG/DL 29 LDL Interpretation: Low Risk Optimal Level: LDL Less than 100 MG/DL Near or Above Optimal: LDL 100-129 MG/DL Borderline High Risk: LDL 130-159 MG/DL High Risk: LDL 160-189 MG/DL Very High Risk: LDL Greater than 189 MG/DL 30 Because ethnic data is not always readily [...] 15-29 5 Kidney failure <15 (or dialysis) 31 Fasting 32 Fasting 33 Because ethnic data is not always [...] 5 Kidney failure <15 (or dialysis) 34 FASTING 35 Anion gap measurement may be of limited value in the presence of any alkalosis, especially in a combined acid base disorder. . 36 A metabolite of Naproxen, O-desmethylnaproxen, has been shown to interfere with the [place] method for measuring total bilirubin. Samples from patients who have taken Naproxen have shown spurious elevation in total bilirubin levels. 37 Because ethnic data is not always readily [...] 15-29 5 Kidney failure <15 (or dialysis) 38 CHOLESTEROL INTERPRETATION: Desirable: Less than 200 MG/DL Borderline-High Risk: 200-239 MG/DL High-Risk: 240 MG/DL and over 39 HDL INTERPRETATION: Undesirable: High Risk: Less than 40 MG/DL Desirable: Low Risk: Greater than 60 MG/DL 40 LDL INTERPRETATION: Low Risk Optimal Level: LDL Less than 100 MG/DL Near or Above Optimal: LDL 100-129 MG/DL Borderline High Risk: LDL 130-159 MG/DL High Risk: LDL 160-189 MG/DL Very High Risk: LDL Greater than 189 MG/DL 41 PA 42 VERBAL TO EVERTT BY BM at 1037 on 01/17/12 that panic result(s) have been read back accurately. 43 AORTA 44 PULMONARY ARTERY 45 REFERENCE RANGES BASED ON ROOM AIR 46 Anion gap measurement may be of limited value in the presence of any alkalosis, especially in a combined acid base disorder. . 47 Because ethnic data is not always readily [...] 15-29 5 Kidney failure <15 (or dialysis) 48 Recommended INR for Patients on Oral Anticoagulants Prophylaxis 2.0 - 3.0 Treatment of thrombosis 2.0 - 3.0 Prevention of embolism 2.0 - 3.0 Prevention of embolism from prosthetic heart valves 2.5 - 3.5 49 DIAGNOSIS,TREATMENT,AND THERAPY MUST BE BASED ON THE INR VALUE ALONE. 50 Anion gap measurement may be of limited value in the presence of any alkalosis, especially in a combined acid base disorder. . 51 A metabolite of Naproxen, O-desmethylnaproxen, has been shown to interfere with the [place] method for measuring total bilirubin. Samples from patients who have taken Naproxen have shown spurious elevation in total bilirubin levels. 52 Because ethnic data is not always readily [...] 15-29 5 Kidney failure <15 (or dialysis) 53 CHOLESTEROL INTERPRETATION: Desirable: Less than 200 MG/DL Borderline-High Risk: 200-239 MG/DL High-Risk: 240 MG/DL and over 54 HDL INTERPRETATION: Undesirable: High Risk: Less than 40 MG/DL Desirable: Low Risk: Greater than 60 MG/DL 55 LDL INTERPRETATION: Low Risk Optimal Level: LDL Less than 100 MG/DL Near or Above Optimal: LDL 100-129 MG/DL Borderline High Risk: LDL 130-159 MG/DL High Risk: LDL 160-189 MG/DL Very High Risk: LDL Greater than 189 MG/DL 56 RUN DATE: 10/24/11 [facility] NMI LIVE PAGE 1 RUN TIME: 1211 Specimen Inquiry RUN USER: INTERFACE Name: SONAL PEARL Status: DIS IN Re10/22/11 Age/Sex: 76/F Unit#: [id number] Location: ICU : 33 SPEC #: [id number] ANIVAL: 10/22/11 STATUS: COMP REQ #: [id number] RECD: 10/22/[address]: Jere HUDSON,Espinoza SOURCE: NOSE ENTR: 10/22/[address]: Tiffany [facility]ON,[facility]ad [facility]: MRSA/VRE CULT ACT WKST: B 10/24/11 #1 Procedure Result Verified Site > MRSA/VRE CULTURE Final 10/24/11- 1211 ML NO MRSA ISOLATED ML - [facility] Permit #[id number] [address] [place] [address] DEPARTMENT OF PATHOLOGY, [address] [place] [address] [facility] Permit #[id number] Han Ayala M.D. Director Cristian Jerry M.D. Supervisor [employer] 57 Anion gap measurement may be of limited value in the presence of any alkalosis, especially in a combined acid base disorder. . 58 A metabolite of Naproxen, O-desmethylnaproxen, has been shown to interfere with the [place] method for measuring total bilirubin. Samples from patients who have taken Naproxen have shown spurious elevation in total bilirubin levels. 59 Because ethnic data is not always readily [...] 15-29 5 Kidney failure <15 (or dialysis) 60 CHOLESTEROL INTERPRETATION: Desirable: Less than 200 MG/DL Borderline-High Risk: 200-239 MG/DL High-Risk: 240 MG/DL and over 61 HDL INTERPRETATION: Undesirable: High Risk: Less than 40 MG/DL Desirable: Low Risk: Greater than 60 MG/DL 62 LDL INTERPRETATION: Low Risk Optimal Level: LDL Less than 100 MG/DL Near or Above Optimal: LDL 100-129 MG/DL Borderline High Risk: LDL 130-159 MG/DL High Risk: LDL 160-189 MG/DL Very High Risk: LDL Greater than 189 MG/DL 63 Anion gap measurement may be of limited value in the presence of any alkalosis, especially in a combined acid base disorder. . 64 A metabolite of Naproxen, O-desmethylnaproxen, has been shown to interfere with the [place] method for measuring total bilirubin. Samples from patients who have taken Naproxen have shown spurious elevation in total bilirubin levels. 65 Because ethnic data is not always readily [...] 15-29 5 Kidney failure <15 (or dialysis) 66 CHOLESTEROL INTERPRETATION: Desirable: Less than 200 MG/DL Borderline-High Risk: 200-239 MG/DL High-Risk: 240 MG/DL and over 67 HDL INTERPRETATION: Undesirable: High Risk: Less than 40 MG/DL Desirable: Low Risk: Greater than 60 MG/DL 68 LDL INTERPRETATION: Low Risk Optimal Level: LDL Less than 100 MG/DL Near or Above Optimal: LDL 100-129 MG/DL Borderline High Risk: LDL 130-159 MG/DL High Risk: LDL 160-189 MG/DL Very High Risk: LDL Greater than 189 MG/DL 69 Anion gap measurement may be of limited value in the presence of any alkalosis, especially in a combined acid base disorder. . 70 Because ethnic data is not always readily [...] 15-29 5 Kidney failure <15 (or dialysis) 71 Anion gap measurement may be of limited value in the presence of any alkalosis, especially in a combined acid base disorder. . 72 Because ethnic data is not always readily [...] 15-29 5 Kidney failure <15 (or dialysis) 73 Anion gap measurement may be of limited value in the presence of any alkalosis, especially in a combined acid base disorder. . 74 Note change in reference range as of 05/05/08. The change was based on recommendations from the [place] [employer]. 75 A metabolite of Naproxen, O-desmethylnaproxen, has been shown to interfere with the [place] method for measuring total bilirubin. Samples from patients who have taken Naproxen have shown spurious elevation in total bilirubin levels. 76 Because ethnic data is not always readily [...] 15-29 5 Kidney failure <15 (or dialysis) 77 CHOLESTEROL INTERPRETATION: Desirable: Less than 200 MG/DL Borderline-High Risk: 200-239 MG/DL High-Risk: 240 MG/DL and over 78 HDL INTERPRETATION: Undesirable: High Risk: Less than 40 MG/DL Desirable: Low Risk: Greater than 60 MG/DL 79 LDL INTERPRETATION: Low Risk Optimal Level: LDL Less than 100 MG/DL Near or Above Optimal: LDL 100-129 MG/DL Borderline High Risk: LDL 130-159 MG/DL High Risk: LDL 160-189 MG/DL Very High Risk: LDL Greater than 189 MG/DL 80 Anion gap measurement may be of limited value in the presence of any alkalosis, especially in a combined acid base disorder. . 81 Note change in reference range as of 05/05/08. The change was based on recommendations from the [place] [employer]. 82 Because ethnic data is not always [...] 5 Kidney failure <15 (or dialysis) 83 Recommended INR for Patients on Oral Anticoagulants Prophylaxis 2.0 - 3.0 Treatment of thrombosis 2.0 - 3.0 Prevention of embolism 2.0 - 3.0 Prevention of embolism from prosthetic heart valves 2.5 - 3.5 84 DIAGNOSIS,TREATMENT,AND THERAPY MUST BE BASED ON THE INR VALUE ALONE. 85 Neutropenia % Lymphocytosis % 86 REVIEWED BY CRISTIAN JERRY MD 87 COMMENTS: ICU ADMIT 88 NO MRSA ISOLATED 89 Anion gap measurement may be of limited value in the presence of any alkalosis, especially in a combined acid base disorder. . 90 Note change in reference range as of 05/05/08. The change was based on recommendations from the [place] [employer]. 91 Please note change in reference range effective 08 . 92 A metabolite of Naproxen, O-desmethylnaproxen, has been shown to interfere with the [place] method for measuring total bilirubin. Samples from patients who have taken Naproxen have shown spurious elevation in total bilirubin levels. 93 Because ethnic data is not always readily [...] 15-29 5 Kidney failure <15 (or dialysis) 94 CHOLESTEROL INTERPRETATION: Desirable: Less than 200 MG/DL Borderline-High Risk: 200-239 MG/DL High-Risk: 240 MG/DL and over 95 HDL INTERPRETATION: Undesirable: High Risk: Less than 40 MG/DL Desirable: Low Risk: Greater than 60 MG/DL 96 LDL INTERPRETATION: Low Risk Optimal Level: LDL Less than 100 MG/DL Near or Above Optimal: LDL 100-129 MG/DL Borderline High Risk: LDL 130-159 MG/DL High Risk: LDL 160-189 MG/DL Very High Risk: LDL Greater than 189 MG/DL 97 CHOLESTEROL INTERPRETATION: Desirable: Less than 200 MG/DL Borderline-High Risk: 200-239 MG/DL High-Risk: 240 MG/DL and over 98 HDL INTERPRETATION: Undesirable: High Risk: Less than 40 MG/DL Desirable: Low Risk: Greater than 60 MG/DL 99 LDL INTERPRETATION: Low Risk Optimal Level: LDL Less than 100 MG/DL Near or Above Optimal: LDL 100-129 MG/DL Borderline High Risk: LDL 130-159 MG/DL High Risk: LDL 160-189 MG/DL Very High Risk: LDL Greater than 189 MG/DL 100 Anion gap measurement may be of limited value in the presence of any alkalosis, especially in a combined acid base disorder. . 101 Note change in reference range as of 05/05/08. The change was based on recommendations from the [place] [employer]. 102 Please note change in reference range effective 08 . 103 A metabolite of Naproxen, O-desmethylnaproxen, has been shown to interfere with the [place] method for measuring total bilirubin. Samples from patients who have taken Naproxen have shown spurious elevation in total bilirubin levels. 104 Because ethnic data is not always readily [...] 15-29 5 Kidney failure <15 (or dialysis) 105 CHOLESTEROL INTERPRETATION: Desirable: Less than 200 MG/DL Borderline-High Risk: 200-239 MG/DL High-Risk: 240 MG/DL and over 106 HDL INTERPRETATION: Undesirable: High Risk: Less than 40 MG/DL Desirable: Low Risk: Greater than 60 MG/DL 107 LDL INTERPRETATION: Low Risk Optimal Level: LDL Less than 100 MG/DL Near or Above Optimal: LDL 100-129 MG/DL Borderline High Risk: LDL 130-159 MG/DL High Risk: LDL 160-189 MG/DL Very High Risk: LDL Greater than 189 MG/DL 108 Anion gap measurement may be of limited value in the presence of any alkalosis, especially in a combined acid base disorder. . 109 Note change in reference range as of 05/05/08. The change was based on recommendations from the [place] [employer]. 110 Please note change in reference range effective 08 . 111 A metabolite of Naproxen, O-desmethylnaproxen, has been shown to interfere with the [place] method for measuring total bilirubin. Samples from patients who have taken Naproxen have shown spurious elevation in total bilirubin levels. 112 CHOLESTEROL INTERPRETATION: Desirable: Less than 200 MG/DL Borderline-High Risk: 200-239 MG/DL High-Risk: 240 MG/DL and over 113 HDL INTERPRETATION: Undesirable: High Risk: Less than 40 MG/DL Desirable: Low Risk: Greater than 60 MG/DL 114 LDL INTERPRETATION: Low Risk Optimal Level: LDL Less than 100 MG/DL Near or Above Optimal: LDL 100-129 MG/DL Borderline High Risk: LDL 130-159 MG/DL High Risk: LDL 160-189 MG/DL Very High Risk: LDL Greater than 189 MG/DL 115 Anion gap measurement may be of limited value in the presence of any alkalosis, especially in a combined acid base disorder. . 116 Note change in reference range as of 05/05/08. The change was based on recommendations from the [place] [employer]. 117 Please note change in reference range effective 08 . 118 FAX RESULTS TO HAN BYRNE MD AT FAX NUMBER [phone] 119 Anion gap measurement may be of limited value in the presence of any alkalosis, especially in a combined acid base disorder. . 120 Note change in reference range as of 05/05/08. The change was based on recommendations from the [place] [employer]. 121 Please note change in reference range effective 08 . Procedures Date Code Description Status 10/27/2018 96612 EKG, Interpretation Only Completed 10/25/2018 46109 EKG, Interpretation Only Completed 10/24/2018 44642 EKG, Interpretation Only Completed 10/23/2018 69842 EKG, Interpretation Only Completed 10/22/2018 44839 EEG Recording Awake & Drowsy Completed 10/22/2018 60119 EKG, Interpretation Only Completed 10/21/2018 97055 EKG, Interpretation Only Completed 09/28/2018 37081 ECHO Transthorasic Realtime 2D W Doppler & Color Flow Completed Hosp 09/27/2018 22740 EKG, Interpretation Only Completed 06/17/2018 90055 ECHO Transthorasic Realtime 2D W Doppler & Color Flow Completed Hosp 10/20/2014 07170 Left Heart Cath. Incl S/I Coronaries, Angio S/I V Gram Completed If Done 10/17/2014 71007 EKG Tracing & Interpretation Completed 09/30/2014 22735 Treadmill Interp/Report Only Completed 09/30/2014 80624 Stress Test Supervsn W/Out I/R Completed 08/30/2014 69951 ECHO Transthoracic, Real-Time 2D With Doppler And Color Completed Flow 07/15/2014 26941 EKG Tracing & Interpretation Completed 03/17/2014 44959 EKG Tracing & Interpretation Completed 02/11/2014 82857 EKG Tracing & Interpretation Completed 01/12/2014 32299 Holter Monitoring 24 HR New Completed 01/10/2014 30963 ECHO Transthoracic, Real-Time 2D With Doppler And Color Completed Flow 12/30/2013 85148 EKG Tracing & Interpretation Completed 12/24/2013 38012 EKG, Interpretation Only Completed 12/23/2013 14258 EKG, Interpretation Only Completed 12/22/2013 08518 EKG, Interpretation Only Completed 12/21/2013 82003 ECHO Transthoracic, Real-Time 2D With Doppler And Color Completed Flow 12/21/2013 00114 EKG, Interpretation Only Completed 12/21/2013 98761 Cardioversion Completed 12/16/2013 35327 EKG Tracing & Interpretation Completed 12/04/2013 14838 Cardioversion Completed 07/01/2013 37763 ECHO Transthoracic, Real-Time 2D With Doppler And Color Completed Flow 06/21/2013 14086 EKG Tracing & Interpretation Completed 02/18/2013 80119 EKG Tracing & Interpretation Completed 12/03/2012 89720 EKG Tracing & Interpretation Completed 12/01/2012 91828 Cardioversion Completed 10/15/2012 39415 EKG Tracing & Interpretation Completed 09/03/2012 08055 EKG Tracing & Interpretation Completed 08/26/2012 47175 EKG Tracing & Interpretation Completed 08/17/2012 73503 EKG Tracing & Interpretation Completed 08/14/2012 54335 EKG Tracing & Interpretation Completed 08/14/2012 52016 Cardioversion Completed 07/14/2012 [id number] Colonoscopy Completed 06/22/2012 35291 Mobile Cardiovascular Telemetry Over 24 HR Up To 30 Completed Days 06/05/2012 64029 EKG Tracing & Interpretation Completed 05/12/2012 62491 Mobile Cardiovascular Telemetry Over 24 HR Up To 30 Completed Days 04/30/2012 71171 Holter Monitoring 24 HR New Completed 03/13/2012 72929 EKG Tracing & Interpretation Completed 02/26/2012 51118 EKG Tracing & Interpretation Completed 01/17/2012 04622 RT & LT HRT Cath W/Inj For Ventriculography I/S And Completed Interp If Don 01/17/2012 45485 EKG, Interpretation Only Completed 01/15/2012 50002 EKG Tracing & Interpretation Completed 12/04/2011 31541 EKG Tracing & Interpretation Completed 11/18/2011 03495 ECHO Stress Test Incl Perf Contiuous ekg Monitoring Completed W/Phys Superv 10/31/2011 69424 ECHO Transthoracic, Real-Time 2D With Doppler And Color Completed Flow 10/23/2011 03280 Pulse Wave/Continuous-Interp.RPT Completed 10/23/2011 24333 EKG, Interpretation Only Completed 10/23/2011 39789 Cardioversion Completed 10/23/2011 81568 Color Flow Doppler/Interp & Reprt Completed 10/23/2011 91832 Echocardiography, Transesophageal, Real Time W/Image 2D Completed W/W/O M-M 07/10/2011 17178 EKG Tracing & Interpretation Completed 04/08/2011 60936 ECHO Transthoracic, Real-Time 2D With Doppler And Color Completed Flow 02/04/2011 61603 EKG, Interpretation Only Completed 02/04/2011 07837 EKG Tracing & Interpretation Completed 12/18/2010 68951 Treadmill Interp/Report Only Completed 12/18/2010 84980 Stress Test Supervsn W/Out I/R Completed 11/07/2010 87955 ECHO Transthoracic, Real-Time 2D With Doppler And Color Completed Flow 11/06/2010 01249 EKG, Interpretation Only Completed 05/03/2010 20522 EKG Tracing & Interpretation Completed 04/04/2010 00330 Pulse Wave/Continuous-Interp.RPT Completed 04/04/2010 95872 Echocardiography, Transesophageal, Real Time W/Image 2D Completed W/W/O M-M 04/04/2010 52498 Cardioversion Completed 04/04/2010 02447 Color Flow Doppler/Interp & Reprt Completed 12/13/2009 60484 EKG Tracing & Interpretation Completed 05/17/2009 72160 EKG Tracing & Interpretation Completed 03/07/2009 64511 EKG Tracing & Interpretation Completed 01/04/2009 38278 EKG Tracing & Interpretation Completed 12/05/2008 33872 ECHO Stress Test Incl Perf Contiuous ekg Monitoring Completed W/Phys Superv 12/01/2008 17445 EKG Tracing & Interpretation Completed 11/30/2008 05677 Holter Monitor Completed 11/27/2008 56268 ECHO Transthorasic Realtime 2D W Doppler & Color Flow Completed Hosp 02/27/2004 39744613 Colonoscopy Completed 02/22/2002 12723315 Colonoscopy Completed 12/12/1999 [id number] Colonoscopy Completed Encounters Type Date Location Provider Dx Diagnosis Office Visit 11/13/2018 [facility] Shannan Kamara, F32.9 Major depressive 8:15a disorder, single episode, unspecified E11.9 Type 2 diabetes mellitus without complications R41.0 Disorientation, unspecified R68.2 Dry mouth, unspecified Office Visit 11/06/2018 9:45a [facility] Shannan F32.9 Major depressive MD Anh disorder, single episode, unspecified I48.91 Unspecified atrial fibrillation E11.9 Type 2 diabetes mellitus without complications Z86.73 Prsnl hx of TIA (TIA), and cereb infrc w/o resid deficits I10 Essential (primary) hypertension R19.7 Diarrhea, unspecified K51.90 Ulcerative colitis, unspecified, without complications Z66 Do not resuscitate D50.9 Iron deficiency anemia, unspecified Office Visit 10/30/2018 1:47p [facility] Haley I63.9 Cerebral Assoc,diana Hill D.O. infarction, Hospitalists unspecified I48.91 Unspecified atrial fibrillation E11.9 Type 2 diabetes mellitus without complications I10 Essential (primary) hypertension Office Visit 10/29/2018 1:47p [facility] Haley I63.9 Cerebral Assoc,diana Hill D.O. infarction, Hospitalists unspecified I48.91 Unspecified atrial fibrillation E11.9 Type 2 diabetes mellitus without complications I10 Essential (primary) hypertension F32.9 Major depressive disorder, single episode, unspecified Office Visit 10/28/2018 [facility] I61.9 Nontraumatic 1:45p Assoc,pc Shortle, TNT LINE SUPERVISOR intracerebral Hospitalists hemorrhage, unspecified N39.0 Urinary tract infection, site not specified B95.2 Enterococcus as the cause of diseases classified elsewhere I48.91 Unspecified atrial fibrillation I10 Essential (primary) hypertension E11.9 Type 2 diabetes mellitus without complications D50.9 Iron deficiency anemia, unspecified Office Visit 10/27/2018 [facility] I61.9 Nontraumatic 1:44p Assoc,pc Shortle, TNT LINE SUPERVISOR intracerebral Hospitalists hemorrhage, unspecified B95.2 Enterococcus as the cause of diseases classified elsewhere N39.0 Urinary tract infection, site not specified E11.9 Type 2 diabetes mellitus without complications I10 Essential (primary) hypertension I48.91 Unspecified atrial fibrillation D50.9 Iron deficiency anemia, unspecified Office Visit 10/26/2018 [facility] Stanislaw I61.9 Nontraumatic 1:44p Assocdiana PA intracerebral Hospitalists hemorrhage, unspecified I48.2 Chronic atrial fibrillation I10 Essential (primary) hypertension I47.2 Ventricular tachycardia E11.9 Type 2 diabetes mellitus without complications D50.9 Iron deficiency anemia, unspecified Office 10/26/2018 [facility] Virgilio I61.9 Nontraumatic Visit 7:00a Stefania Baugh M.D. intracerebral hemorrhage, unspecified I63.532 Cereb infrc d/t unsp occls or stenos of left post cereb art R41.0 Disorientation, unspecified Office Visit 10/25/2018 [facility] [place] I61.9 Nontraumatic 1:44p Assocdiana PA intracerebral Hospitalists hemorrhage, unspecified I48.2 Chronic atrial fibrillation E11.9 Type 2 diabetes mellitus without complications I10 Essential (primary) hypertension I47.2 Ventricular tachycardia D50.9 Iron deficiency anemia, unspecified Office Visit 10/24/2018 [facility] [place] I61.9 Nontraumatic 1:43p Assoc,diana Meeks PA intracerebral Hospitalists hemorrhage, unspecified E11.65 Type 2 diabetes mellitus with hyperglycemia I48.2 Chronic atrial fibrillation I10 Essential (primary) hypertension I47.2 Ventricular tachycardia D50.9 Iron deficiency anemia, unspecified Office 10/24/2018 [facility]gilio R41.0 Disorientation, Visit 7:00a Stefania Baugh M.D. unspecified I61.9 Nontraumatic intracerebral hemorrhage, unspecified I63.532 Cereb infrc d/t unsp occls or stenos of left post cereb art Office Visit 10/23/2018 [facility] [place] I61.9 Nontraumatic 1:43p Assoc,KAYLA Cox intracerebral Hospitalists hemorrhage, unspecified I48.91 Unspecified atrial fibrillation E11.9 Type 2 diabetes mellitus without complications I11.0 Hypertensive heart disease with heart failure I50.22 Chronic systolic (congestive) heart failure I47.2 Ventricular tachycardia D50.9 Iron deficiency anemia, unspecified Office Visit 10/23/2018 11:24a [facility] Kayode Hannon I48.91 Unspecified atrial Of Benitez Gee M.D., fibrillation FACC, FASNC I63.9 Cerebral infarction, unspecified Office Visit 10/23/2018 [facility] Justa I61.9 Nontraumatic 7:00a Stefania Okeefe MD intracerebral hemorrhage, unspecified I63.532 Cereb infrc d/t unsp occls or stenos of left post cereb art R41.0 Disorientation, unspecified Office Visit 10/22/2018 [facility] [place] I61.9 Nontraumatic 1:42p Assfranky,KAYLA Cox intracerebral Hospitalists hemorrhage, unspecified E11.9 Type 2 diabetes mellitus without complications I11.0 Hypertensive heart disease with heart failure I50.22 Chronic systolic (congestive) heart failure I48.91 Unspecified atrial fibrillation I47.2 Ventricular tachycardia D50.9 Iron deficiency anemia, unspecified Office Visit 10/22/2018 [facility] Justa R41.0 Disorientation, 7:00a Stefania Okeefe MD unspecified I61.9 Nontraumatic intracerebral hemorrhage, unspecified I63.532 Cereb infrc d/t unsp occls or stenos of left post cereb art Office Visit 10/21/2018 [facility] [place] I61.9 Nontraumatic 1:42p Assoc,KAYLA Cox intracerebral Hospitalists hemorrhage, unspecified I48.91 Unspecified atrial fibrillation E11.9 Type 2 diabetes mellitus without complications I47.2 Ventricular tachycardia I11.0 Hypertensive heart disease with heart failure I50.22 Chronic systolic (congestive) heart failure D50.9 Iron deficiency anemia, unspecified Office Visit 10/21/2018 [facility] Justa I61.9 Nontraumatic 7:00a Stefania Okeefe MD intracerebral hemorrhage, unspecified I63.532 Cereb infrc d/t unsp occls or stenos of left post cereb art Office Visit 10/20/2018 [facility] Noemy Hwang I61.9 Nontraumatic 1:41p Assocdiana NP intracerebral Hospitalists hemorrhage, unspecified I47.2 Ventricular tachycardia I48.91 Unspecified atrial fibrillation M79.662 Pain in left lower leg I11.0 Hypertensive heart disease with heart failure I50.22 Chronic systolic (congestive) heart failure E11.9 Type 2 diabetes mellitus without complications D50.9 Iron deficiency anemia, unspecified Office Visit 10/19/2018 [facility] Noemy Eri I61.9 Nontraumatic 1:41p Assdiana wilkins NP intracerebral Hospitalists hemorrhage, unspecified I50.22 Chronic systolic (congestive) heart failure I11.0 Hypertensive heart disease with heart failure I48.91 Unspecified atrial fibrillation E11.9 Type 2 diabetes mellitus without complications D50.9 Iron deficiency anemia, unspecified Office Visit 10/18/2018 [facility] Mattie Cortez, I63.9 Cerebral 1:05p Services Of Benitez COLLINSC infarction, unspecified Office Visit 10/18/2018 [facility] I61.9 Nontraumatic 1:40p Assocdiana MD intracerebral Hospitalists hemorrhage, unspecified I10 Essential (primary) hypertension I48.91 Unspecified atrial fibrillation E11.9 Type 2 diabetes mellitus without complications Office Visit 10/17/2018 [facility] Mattie I63.9 Cerebral 1:05p Of KARINA RobertsC infarction, unspecified Office Visit 10/17/2018 [facility] Corona S. I61.9 Nontraumatic 7:00a Clinic kandace Cheng M.DShraddha hemorrhage, unspecified I63.532 Cereb infrc d/t unsp occls or stenos of left post cereb art Office Visit 10/17/2018 [facility] Lola I61.9 Nontraumatic 1:39p Assoc,diana Gill MD intracerebral Hospitalists hemorrhage, unspecified I10 Essential (primary) hypertension I48.91 Unspecified atrial fibrillation E11.9 Type 2 diabetes mellitus without complications Office Visit 10/16/2018 [facility] Justin I61.9 Nontraumatic 7:00a Clinic MD Tristian intracerebral hemorrhage, unspecified I63.532 Cereb infrc d/t unsp occls or stenos of left post cereb art Office Visit 10/16/2018 [facility] Vilma I61.9 Nontraumatic 1:37p Assdiana wilkins M.D. intracerebral Hospitalists hemorrhage, unspecified I10 Essential (primary) hypertension I48.91 Unspecified atrial fibrillation E11.9 Type 2 diabetes mellitus without complications Office Visit 10/15/2018 [facility] Saranya I61.9 Nontraumatic 1:35p Assoc,diana Seymour NP intracerebral Hospitalists hemorrhage, unspecified I10 Essential (primary) hypertension I48.91 Unspecified atrial fibrillation E11.9 Type 2 diabetes mellitus without complications Office Visit 10/15/2018 [facility] Justin I61.9 Nontraumatic 7:00a Clinic MD Tristian intracerebral hemorrhage, unspecified I63.532 Cereb infrc d/t unsp occls or stenos of left post cereb art Office Visit 10/01/2018 2:06p [facility] I63.9 Cerebral Assocdiana M.D. infarction, Hospitalists unspecified D50.9 Iron deficiency anemia, unspecified I48.91 Unspecified atrial fibrillation E11.9 Type 2 diabetes mellitus without complications Office Visit 09/30/2018 2:05p [facility] I63.9 Cerebral Assocdiana M.D. infarction, Hospitalists unspecified D50.9 Iron deficiency anemia, unspecified E11.9 Type 2 diabetes mellitus without complications I48.91 Unspecified atrial fibrillation Office 09/30/2018 [facility] Virgilio I63.9 Cerebral Visit 7:00a Clinic Cornelius Baugh infarction, unspecified R41.0 Disorientation, unspecified Office Visit 09/29/2018 [facility] Carlos R47.1 Dysarthria and 7:00a Clinic Selene Barragan anarthria R41.0 Disorientation, unspecified I63.9 Cerebral infarction, unspecified R51 Headache [facility] Cerebral 2:05p diana Duke M.D. infarction, Hospitalists unspecified N17.9 Acute kidney failure, unspecified I50.23 Acute on chronic systolic (congestive) heart failure I11.0 Hypertensive heart disease with heart failure D50.9 Iron deficiency anemia, unspecified E11.9 Type 2 diabetes mellitus without complications I48.91 Unspecified atrial fibrillation I47.2 Ventricular tachycardia Office 09/28/2018 [facility] Virgilio I63.9 Cerebral Visit 7:00a Clinic Cornelius Baugh infarction, unspecified R51 Headache [facility].9 Cerebral 2:05p diana Duke M.D. infarction, Hospitalists unspecified N17.9 Acute kidney failure, unspecified I48.91 Unspecified atrial fibrillation I47.2 Ventricular tachycardia E11.9 Type 2 diabetes mellitus without complications D50.9 Iron deficiency anemia, unspecified I11.0 Hypertensive heart disease with heart failure I50.22 Chronic systolic (congestive) heart failure Office [facility] I63.9 Cerebral 2:04p diana Duke M.D. infarction, Hospitalists unspecified I48.91 Unspecified atrial fibrillation I47.2 Ventricular tachycardia I11.0 Hypertensive heart disease with heart failure I50.22 Chronic systolic (congestive) heart failure E11.9 Type 2 diabetes mellitus without complications D64.9 Anemia, unspecified Office 09/27/2018 [facility] Virgilio I63.9 Cerebral Visit 7:00a Stefania Baugh M.D. infarction, unspecified R51 Headache R41.0 Disorientation, unspecified Office Visit 09/27/2018 [facility] Lukas Amador D50.9 Iron deficiency 7:00a MD Wilian anemia, unspecified K21.9 Gastro-esophageal reflux disease without esophagitis K51.90 Ulcerative colitis, unspecified, without complications Office Visit 09/26/2018 7:00a [facility] Virgilio Baugh, R51 Headache M.D. R47.81 Slurred speech R29.810 Facial weakness Z86.73 Prsnl hx of TIA (TIA), and cereb infrc w/o resid deficits Office Visit 09/26/2018 [facility] Ellie Diana, I63.9 Cerebral 2:04p diana Duke M.D. infarction, Hospitalists unspecified I48.91 Unspecified atrial fibrillation I47.2 Ventricular tachycardia I50.22 Chronic systolic (congestive) heart failure I11.0 Hypertensive heart disease with heart failure E11.9 Type 2 diabetes mellitus without complications D64.9 Anemia, unspecified Office Visit 09/25/2018 2:04p [facility] G45.9 Transient Assocdiana NP cerebral ischemic Hospitalists attack, unspecified I48.91 Unspecified atrial fibrillation I10 Essential (primary) hypertension R51 Headache Office Visit 09/25/2018 7:00a [facility] Justa Okeefe MD R51 Headache R47.81 Slurred speech R29.810 Facial weakness Z86.73 Prsnl hx of TIA (TIA), and cereb infrc w/o resid deficits I10 Essential (primary) hypertension I48.2 Chronic atrial fibrillation Z79.01 watermaster (current) use of anticoagulants Office Visit 09/17/2018 [facility] Lukas Amador G45.9 Transient 8:45a MD Wilian cerebral ischemic attack, unspecified I48.91 Unspecified atrial fibrillation Z79.899 Other extermination inspector (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) drug therapy D64.9 Anemia, unspecified Office Visit 06/18/2018 [facility] Justa Okeefe G45.9 Transient 7:00a Stefania HUDSON cerebral ischemic attack, unspecified I16.0 Hypertensive urgency R29.6 Repeated falls Z79.01 watermaster (current) use of anticoagulants Office Visit 06/18/2018 [facility] Deepali G45.9 Transient 11:46a Assoc,diana Hope NP cerebral ischemic Hospitalists attack, unspecified I48.91 Unspecified atrial fibrillation E11.9 Type 2 diabetes mellitus without complications E03.9 Hypothyroidism, unspecified Office Visit 06/17/2018 [facility] Justa Okeefe, G45.9 Transient 7:00a Clinic cerebral ischemic attack, unspecified I16.0 Hypertensive urgency R29.6 Repeated falls Z79.01 penitentiary (current) use of anticoagulants Office Visit 06/17/2018 [facility] Ellie Ortiz, I63.9 Cerebral 11:46a Assocdiana M.D. infarction, Hospitalists unspecified I48.91 Unspecified atrial fibrillation E11.9 Type 2 diabetes mellitus without complications E03.9 Hypothyroidism, unspecified Office Visit 06/16/2018 [facility] Justa Okeefe, G45.9 Transient 7:00a Clinic cerebral ischemic attack, unspecified I16.0 Hypertensive urgency R29.702 Nihss score 2 Z79.01 penitentiary (current) use of anticoagulants Office Visit 06/16/2018 11:45a [facility] Espinoza I63.9 Cerebral Assoc,diana Oquendo M.D. infarction, Hospitalists unspecified I48.91 Unspecified atrial fibrillation E11.9 Type 2 diabetes mellitus without complications E03.9 Hypothyroidism, unspecified Office Visit 10/25/2014 3:40p [facility] Charmaine Ulrich 424.0 Mitral Valve Cornelius Farah Disorder 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 414.01 Coronary Atherosclerosis [place] Office Visit 10/17/2014 1:40p [facility] Charmaine Ulrich 786.05 Angélicaness Kenny Farah M.D. Breath 424.0 Mitral Valve Disorder 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 786.09 Dyspnea & Respiratory Abnormalities Other 414.01 Coronary Atherosclerosis [place] Office Visit 09/30/2014 9:30a [facility] Maurice Castellano 786.05 ShortHarshil M.D. Breath Office Visit 07/15/2014 3:20p [facility] Maurice Castellano 780.4 Dizziness & Cornelius Brenner Giddiness 327.23 Obstructive Sleep Apnea Adult & Pediatric 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 786.09 Dyspnea & Respiratory Abnormalities Other 135 Sarcoidosis Office 07/05/2014 Pul[facility] 327.23 Obstructive Sleep Visit 3:15p Sleep Services Humphrey, DNP, Apnea Adult & Of [facility] RN, LADLE REPAIRER- Pediatric Office 04/28/2014 KAYLA Peter 794.31 Electrocardiogram Visit 3:00p Cardiology (ECG) (EKG) Abnormal 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 250.90 Diabetes W/ Unspec Compl Type II Or Unspec Controlled 427.31 Atrial Fibrillation 424.0 Mitral Valve Disorder Office Visit 03/17/2014 11:00a [facility] Maurice Castellano 424.0 Mitral Valve Cornelius Brenner Disorder 427.31 Atrial Fibrillation 250.90 Diabetes W/ Unspec Compl Type II Or Unspec Controlled 401.1 Hypertension Benign Office Visit 01/20/2014 2:30p [facility] Puentes 427.31 Atrial Cardiology Fibrillation Office Visit 12/30/2013 2:00p [facility] Maurice Castellano 427.31 Atrial Cardiology Cornelius Brenner Fibrillation 244.9 Hypothyroidism Other Unspec 250.90 Diabetes W/ Unspec Compl Type II Or Unspec Controlled 401.1 Hypertension Benign 424.0 Mitral Valve Disorder 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 Office Visit 12/25/2013 [facility] Ellie Ortiz, 427.31 Atrial 3:43p diana Duke M.D. Fibr[facility] Hospitalists 244.9 Hypothyroidism Other Unspec 250.90 Diabetes W/ Unspec Compl Type II Or Unspec Controlled Office Visit 12/25/2013 Ildefonso Hannon 427.31 Atrial Fibrillation 10:14a Cardiology Kenny Gee M.D., [facility] FACC, FASNC Office Visit 12/24/2013 Alexandru Montano S. 794.31 Electrocardiogram 10:46a Cardiology Gagan (ECG) (EKG) Abnormal Cornelius 427.31 Atrial Fibrillation 401.1 Hypertension Benign 272.4 Hyperlipidemia Other Unspec Office Visit 12/24/2013 [facility] Ellie Ortiz, 427.31 Atrial 3:42p Assocdiana M.D. Fibr[facility] Hospitalists 244.9 Hypothyroidism Other Unspec 250.90 Diabetes W/ Unspec Compl Type II Or Unspec Controlled Office 12/23/2013 [facility] Charmaine S. 794.31 Electrocardiogram Visit 10:38a Cardiology Cornelius Farah (ECG) (EKG) Abnormal 427.31 Atrial Fibrillation 424.0 Mitral Valve Disorder Office Visit 12/23/2013 [facility] Ellie Ortiz, 427.31 Atrial 3:42p diana Duke M.D. [facility] 244.9 Hypothyroidism Other Unspec 250.90 Diabetes W/ Unspec Compl Type II Or Unspec Controlled Office 12/22/2013 [facility] Venanciooriana S. 794.31 Electrocardiogram Visit 9:47a Alondra Farah M.D. (ECG) (EKG) Abnormal 427.31 Atrial Fibrillation 401.1 Hypertension Benign Office Visit 12/22/2013 [facility] Ellie Hohn, 427.31 Atrial 3:42p diana Duke M.D. [facility] 244.9 Hypothyroidism Other Unspec 250.90 Diabetes W/ Unspec Compl Type II Or Unspec Controlled Office Visit 12/21/2013 [facility] Ellie Hohn, 427.31 Atrial 3:41p diana Duke M.D. [facility] 244.9 Hypothyroidism Other Unspec 250.90 Diabetes W/ Unspec Compl Type II Or Unspec Controlled Office Visit 12/21/2013 [facility] Miguel Ángel Kimble 427.31 Atrial 11:17a Of [facility] Yanez M.D. Fibrillation Office Visit 12/20/2013 [facility] Carlos 427.31 Atrial 3:40p Assdiana wilkins [facility] Fibrillation Hospitalists N.P. 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 427.31 Atrial 2:50p Alondra Farah M.D. Fibrillation Office Visit 06/21/2013 [facility] Maurice Castellano 427.32 Atrial Flutter 9:00a Alondra Brenner M.D. 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 Office Visit 12/13/2009 10:40a [facility] Maurice Castellano 427.31 Atrial Cardiology Cornelius Brenner Fibrillation 401.1 Hypertension Benign 414.01 Coronary Atherosclerosis [place] Office Visit 05/17/2009 10:10a [facility] Maurice Castellano 427.31 Atrial Cardiology Cornelius Brenner Fibrillation 401.1 Hypertension Benign 414.01 Coronary Atherosclerosis [place] 250.00 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 Office Visit 03/07/2009 9:30a [facility] Nurse Visit 427.31 Atrial Fibrillation cc 401.1 Hypertension Benign 414.01 Coronary Atherosclerosis [place] Office Visit 02/09/2009 9:40a [facility] Maurice Castellano 250.00 Diabetes Cornelius Brenner Mellitus W/O Compl Type II Or Unspec Controlled 427.31 Atrial Fibrillation 401.1 Hypertension Benign 414.01 Coronary Atherosclerosis [place] Office Visit 01/04/2009 9:10a [facility] Maurice Castellano 250.00 Diabetes Cornelius Brenner Mellitus W/O Compl Type II Or Unspec Controlled 427.31 Atrial Fibrillation 401.1 Hypertension Benign 414.01 Coronary Atherosclerosis [place] Plan of Treatment Future Appointment(s):03/12/2019 1:00 pm - Carlos Barragan NOswald at [facility]12/17/2018 11:00 am - Lukas Cedeno MD at [facility] [id number]/18/2019 - Carlos Barragan N.P.F32.9 Major depressive disorder, single episode, [id number] Cerebral infarction, unspecifiedNew Medication:Fluoxetine HCL (PMDD) 10 mg - 1 tablet at bedtimeFollow up:3 [id number] Cerebral infarction due to unspecified occlusion or [id number] Nontraumatic intracerebral hemorrhage, unspecified
[2018-12-07] MEDS ORDERED: NS 0.9% 1000 ML** 1,000 ML IV ONE (16:17)
[2018-12-07 16:52] LABS: ABS Basophils 0 10^3/ul (0-0.2); ABS Eosinophils 0.1 10^3/ul (0-0.6); ABS Lymphocytes 2.2 10^3/ul (1.0-4.8); ABS Monocytes 0.9 10^3/ul (0-0.8); ABS Neutrophils 6.5 10^3/ul (1.5-7.7); ABS Nucleated RBC 0 10^3/ul; Eosinophil % 1.5 %; Hematocrit 32 % (33-41); Hemoglobin 10.7 g/dL (12.0-16.0); Lymphocyte % 22.8 %; Mean Corpuscular HGB Conc 34 g/dL (31-36); Mean Corpuscular Hemoglobin 31 pg (27-31); Mean Corpuscular Volume 90 fL (80-97); Mean Platelet Volume 7.8 fL (7.4-10.4); Nucleated Red Blood Cells % 0; Platelet Count 184 10^3/uL (150-450); Red Blood Count 3.52 10^6 /uL (3.70-4.87); Red Cell Distribution Width 19 % (10.5-15); White Blood Count 9.8 10^3/uL (3.5-10.8)
[2018-12-07 16:58] LABS: INR 1.16 (0.77-1.02)
--- NOTE | 2018-12-07 17:06 | ED ---
HPI Cardiac - History of Current Complaint Chief Complaint: EDNeurologicalDeficit Stated Complaint: INCREASED LETHARGY PER SON/EMS Time Seen by Provider: 12/07/18 16:05 Pain Intensity: 0 - Additional Pertinent History Primary Care Physician: NELY - Allergy/Home Medications Allergies/Adverse Reactions: Allergies Allergy/AdvReac Type Severity Reaction Status Date / Time prednisone Allergy See Comment Verified 06/16/18 14:07 PMH/Surg Hx/FS Hx/Imm Hx Endocrine/Hematology History: Reports: Hx Anticoagulant Therapy, Hx Diabetes, Hx Thyroid Disease, Hx Anemia Denies: Hx Bone Marrow Disease, Hx Sickle Cell Disease Cardiovascular History: Reports: Hx Auto Implanted Cardiovert Defib - 2014, Hx Coronary Artery Disease, Hx Hypercholesterolemia, Hx Hypertension, Hx Pacemaker/ ICD, Hx Valvular Heart Disease - MITRAL VALVE REPLACEMENT 01/2012, Other Cardiovascular Problems/Disorders - heart ablation x2 w/ defibrillator pacemaker placed, MVR Respiratory History: Reports: Hx Asthma, Hx Pneumonia, Hx Sleep Apnea - CPAP GI History: Reports: Hx Gastroesophageal Reflux Disease, Other GI Disorders - ulcerative colitis-in remission History: Denies: Hx Renal Disease Musculoskeletal History: Reports: Hx Arthritis - HANDS,ELBOWS,BACK,KNEES Sensory History: Reports: Hx Contacts or Glasses, Hx Glaucoma Denies: Hx Eye Injury, Hx Eye Prosthesis, Hx Legally Blind, Hx Macular Degeneration, Hx Vision Problem, Hx Deafness, Hx Hearing Aid, Hx Hearing Problem , Other Sensory Impairments Opthamlomology History: Reports: Hx Contacts or Glasses, Hx Glaucoma Denies: Hx Eye Injury, Hx Eye Prosthesis, Hx Legally Blind, Hx Macular Degeneration, Hx Vision Problem, Other Sensory Impairments Neurological History: Reports: Hx Headaches - Surgical History Surgery Procedure, Year, and Place: mitral valve replacement, cardiac ablation x2; hysterectomy 1975, left breast cyst removal 1975, tonsillectomy, Hx Anesthesia Reactions: No Infectious Disease History: No Infectious Disease History: Denies: Traveled Outside the [place] in Last 30 Days - Family History Known Family History: Positive: Hypertension - Social History Alcohol Use: None Substance Use Type: Reports: None Smoking Status (MU): Never Smoked Tobacco Have You Smoked in the Last Year: No Physical Exam Vital Signs On Initial Exam: Initial Vitals Resp 17 12/07/18 16:08 Diagnostics - Vital Signs Vital Signs Temp Pulse Resp BP Pulse Ox 12/07/18 16:11 97.7 F 82 17 162/79 96 12/07/18 16:10 77 14 162/79 96 12/07/18 16:08 17 - Laboratory Lab Results: Lab Results 12/07/18 12/07/18 Range/Units 16:42 16:42 WBC 9.8 (3.5-10.8) 10^3/uL RBC 3.52 L (3.70-4.87) 10^6 /uL Hgb 10.7 L (12.0-16.0) g/dL Hct 32 L (33-41) % MCV 90 (80-97) fL MCH 31 (27-31) pg MCHC 34 (31-36) g/dL RDW 19 H (10.5-15) % Plt Count 184 (150-450) 10^3/uL MPV 7.8 (7.4-10.4) fL Neut % (Auto) 66.4 % Lymph % (Auto) 22.8 % [place] % (Auto) 8.9 % Eos % (Auto) 1.5 % Baso % (Auto) 0.4 % Absolute Neuts (auto) 6.5 (1.5-7.7) 10^3/ul Absolute Lymphs (auto) 2.2 (1.0-4.8) 10^3/ul Absolute Monos (auto) 0.9 H (0-0.8) 10^3/ul Absolute Eos (auto) 0.1 (0-0.6) 10^3/ul Absolute Basos (auto) 0 (0-0.2) 10^3/ul Absolute Nucleated RBC 0 10^3/ul Nucleated RBC % 0 INR (Anticoag Therapy) 1.16 H (0.77-1.02) Result Diagrams: 12/07/18 16:42 Lab Statement: Any lab studies that have been ordered have been reviewed, and results considered in the medical decision making process. Discharge - Discharge Plan Referrals: Vanessa Gómez MD [Primary Care Provider] -
[2018-12-07 17:19] LABS: ALT 6 U/L (7-52); AST 14 U/L (13-39); Albumin 3.8 g/dL (3.2-5.2); Albumin/Globulin Ratio 1.3 (1-3); Alkaline Phosphatase 68 U/L (34-104); Anion Gap 7 mmol/L (2-11); BUN/Creatinine Ratio 18.4 (8-20); Blood Urea Nitrogen 19 mg/dL (6-24); CO2 Carbon Dioxide 26 mmol/L (22-32); Calcium 9.5 mg/dL (8.6-10.3); Chloride 104 mmol/L (101-111); EGFR African American 61.6 (>60); EGFR Non-African American 50.9 (>60); Globulin 2.9 g/dL (2-4); Glucose 276 mg/dL (70-100); Magnesium 1.3 mg/dL (1.9-2.7); Potassium 4.2 mmol/L (3.5-5.0); Sodium 137 mmol/L (135-145); Total Protein 6.7 g/dL (6.4-8.9)
--- NOTE | 2018-12-07 17:22 | ED ---
Altered Mental Status - HPI Summary HPI Summary: Patient's knee 3-year-old female presenting to the ED by way of EMS from [facility] with concern for altered mental status. History of a stroke with subsequent bleed approximate 2 months ago. Over the past 2 days, family at bedside states she has been more confused than her baseline. She was given a liter of fluids 2 days ago which helped some of her confusion symptoms. She was also noted to be nitrite positive on her UA. She is not being treated for this at this time. Discussed with Mary Reza NP on arrival who has been taking care of her at [facility]. D/t her more acute changes, wanted to assure nothing further is found/needed. After stroke, she continues to maintain good strength bilaterally in upper and lower extremities. - History Of Current Complaint Chief Complaint: EDNeurologicalDeficit Stated Complaint: INCREASED LETHARGY PER SON/EMS Time Seen by Provider: 12/07/18 16:05 Hx Obtained From: Patient Timing: Constant Severity Initially: Moderate Severity Currently: Moderate Character: Confusion Aggravating Factor(s): Nothing, Environmental Exposure Alleviating Factor(s): Nothing Associated Signs And Symptoms: Positive: Negative Has Suicidal: Thoughts - Risk Factors Cardiac Risk Factors: Negative CVA Risk Factor: Prior CVA/TIA - Allergies/Home Medications Allergies/Adverse Reactions: Allergies Allergy/AdvReac Type Severity Reaction Status Date / Time prednisone Allergy See Comment Verified 06/16/18 14:07 Home Medications: Home Medications Carvedilol TAB* [Coreg TAB*] 25 mg PO BID 12/07/18 [History Confirmed 12/07/18] Digoxin TAB* [Lanoxin TAB*] 0.125 mg PO QPM 12/07/18 [History Confirmed 12/07/18 ] Insulin GLARGINE(*) [Lantus(*)] 22 units SUBCUT DAILY 12/07/18 [History Confirmed 12/07/18] Metoprolol Tartrate TAB* [Lopressor TAB*] 75 mg PO BID 12/07/18 [History Confirmed 12/07/18] Oral Rinse (Biotene)(NF) [Biotene Dry Mouth Oral Rinse(NF)] 15 ml SWISH SPIT BID 12/07/18 [History Confirmed 12/07/18] metFORMIN* [Glucophage 1000 MG TAB *] 1,000 mg PO BID 12/07/18 [History Confirmed 12/07/18] PMH/Surg Hx/FS Hx/Imm Hx Previously Healthy: No Endocrine/Hematology History: Reports: Hx Anticoagulant Therapy, Hx Diabetes, Hx Thyroid Disease, Hx Anemia Denies: Hx Bone Marrow Disease, Hx Sickle Cell Disease Cardiovascular History: Reports: Hx Auto Implanted Cardiovert Defib - 2014, Hx Coronary Artery Disease, Hx Hypercholesterolemia, Hx Hypertension, Hx Pacemaker/ ICD, Hx Valvular Heart Disease - MITRAL VALVE REPLACEMENT 01/2012, Other Cardiovascular Problems/Disorders - heart ablation x2 w/ defibrillator pacemaker placed, MVR Respiratory History: Reports: Hx Asthma, Hx Pneumonia, Hx Sleep Apnea - CPAP GI History: Reports: Hx Gastroesophageal Reflux Disease, Other GI Disorders - ulcerative colitis-in remission History: Denies: Hx Renal Disease Musculoskeletal History: Reports: Hx Arthritis - HANDS,ELBOWS,BACK,KNEES Sensory History: Reports: Hx Contacts or Glasses, Hx Glaucoma Denies: Hx Eye Injury, Hx Eye Prosthesis, Hx Legally Blind, Hx Macular Degeneration, Hx Vision Problem, Hx Deafness, Hx Hearing Aid, Hx Hearing Problem , Other Sensory Impairments Opthamlomology History: Reports: Hx Contacts or Glasses, Hx Glaucoma Denies: Hx Eye Injury, Hx Eye Prosthesis, Hx Legally Blind, Hx Macular Degeneration, Hx Vision Problem, Other Sensory Impairments Neurological History: Reports: Hx Headaches - Surgical History Surgery Procedure, Year, and Place: mitral valve replacement, cardiac ablation x2; hysterectomy 1975, left breast cyst removal 1975, tonsillectomy, Hx Anesthesia Reactions: No - Immunization History Hx Pertussis Vaccination: No Immunizations Up to Date: Yes Infectious Disease History: No Infectious Disease History: Denies: Traveled Outside the [place] in Last 30 Days - Family History Known Family History: Positive: Hypertension - Social History Occupation: Unemployed Lives: With Family Alcohol Use: None Hx Substance Use: No Substance Use Type: Reports: None Smoking Status (MU): Never Smoked Tobacco Have You Smoked in the Last Year: No Review of Systems Constitutional: Negative Negative: Fever, Chills, Fatigue, Skin Diaphoresis Negative: Palpitations, Chest Pain Negative: Shortness Of Breath, Cough Negative: Abdominal Pain, Vomiting, Diarrhea Genitourinary: Negative Positive: no symptoms reported, see HPI Negative: Arthralgia, Myalgia Skin: Negative Neurological: Negative All Other Systems Reviewed And Are Negative: Yes Physical Exam Triage Information Reviewed: Yes Vital Signs On Initial Exam: Initial Vitals Resp 17 12/07/18 16:08 Vital Signs Reviewed: Yes Appearance: Positive: Well-Appearing, Well-Nourished Skin: Positive: Skin Color Reflects Adequate Perfusion Head/Face: Positive: Normal Head/Face Inspection Eyes: Positive: EOMI, Conjunctiva Clear Respiratory/Lung Sounds: Positive: Clear to Auscultation, Breath Sounds Present Cardiovascular: Positive: IRR. Negative: Leg Edema Left, Leg Edema Right Diagnostics - Vital Signs Vital Signs Temp Pulse Resp BP Pulse Ox 12/07/18 16:11 97.7 F 82 17 162/79 96 12/07/18 16:10 77 14 162/79 96 12/07/18 16:08 17 - Laboratory Lab Results: Lab Results 12/07/18 12/07/18 Range/Units 16:42 16:42 WBC 9.8 (3.5-10.8) 10^3/uL RBC 3.52 L (3.70-4.87) 10^6 /uL Hgb 10.7 L (12.0-16.0) g/dL Hct 32 L (33-41) % MCV 90 (80-97) fL MCH 31 (27-31) pg MCHC 34 (31-36) g/dL RDW 19 H (10.5-15) % Plt Count 184 (150-450) 10^3/uL MPV 7.8 (7.4-10.4) fL Neut % (Auto) 66.4 % Lymph % (Auto) 22.8 % [place] % (Auto) 8.9 % Eos % (Auto) 1.5 % Baso % (Auto) 0.4 % Absolute Neuts (auto) 6.5 (1.5-7.7) 10^3/ul Absolute Lymphs (auto) 2.2 (1.0-4.8) 10^3/ul Absolute Monos (auto) 0.9 H (0-0.8) 10^3/ul Absolute Eos (auto) 0.1 (0-0.6) 10^3/ul Absolute Basos (auto) 0 (0-0.2) 10^3/ul Absolute Nucleated RBC 0 10^3/ul Nucleated RBC % 0 INR (Anticoag Therapy) 1.16 H (0.77-1.02) Result Diagrams: 12/07/18 16:42 12/07/18 16:42 Lab Statement: Any lab studies that have been ordered have been reviewed, and results considered in the medical decision making process. - CT No standard instances CT Interpretation Completed By: Radiologist - No acute intracranial findings; prior cerebral infarct noted - EKG No standard instances Cardiac Rate: NL - Atrial sensed ventricular paced complexes other complex is also detected. ST Segment: Normal Ectopy: None EKG Comparison: No Significant Change Altered Mental Statu Course/Dx - Course Course Of Treatment: This patient is evaluated for mental status changes and generalized weakness which has been worsening over the past few weeks. History of stroke 2 months ago with subsequent bleed. She was found at [facility] to have 1+ leuks in the urine which could be contributory. However due to her recent decline history of stroke, she was sent into the ED for further evaluation. On physical examination, patient appears well, however dehydrated. Family is at bedside stating she is much better today than her yesterday where she had severe delirium. The ED course, she was given 1 L fluids, urine obtained and she was found to have a elevated troponin of 0.20. She has had this in the past and denies any chest pain or SOB at this time. Urine pending. I have asked the hospitalist team to consult for possible observation and determine any further workup needed. - Diagnoses Provider Diagnoses: Acute delirium, UTI (urinary tract infection), Elevated troponin Discharge - Sign-Out/Discharge Documenting (check all that apply): Patient Departure All imaging exams completed and their final reports reviewed: Yes Patient Received Moderate/Deep Sedation with Procedure: No - Discharge Plan Condition: Fair Disposition: ADMITTED TO [facility] - Billing Disposition and Condition Condition: FAIR Disposition: Admitted to [facility]
[2018-12-07] MEDS ORDERED: Magnesium Hydroxide LIQ* 30 ML UDC PO PRN (17:48)
[2018-12-07] MEDS ORDERED: Senna TAB PO PRN (17:51)
[2018-12-07] MEDS ORDERED: Dextrose 50% Syringe 50 ML* 25 GM/50 ML SYRINGE IV PUSH PRN (17:55)
[2018-12-07] MEDS ORDERED: Magnesium Sulfate 2 GM IV* 2 GM/50 ML BAG IVPB ONE (18:30)
[2018-12-07 18:43] LABS: Urine Appearance Clear; Urine Bacteria Absent (Absent); Urine Bilirubin Negative (Negative); Urine Blood Negative (Negative); Urine Color Yellow; Urine Glucose 2+(150 mg/dL) (Negative); Urine Ketones Negative (Negative); Urine Nitrite Negative (Negative); Urine Protein Negative (Negative); Urine Red Blood Cell Absent (Absent); Urine Specific Gravity 1.011 (1.010-1.030); Urine Urobilinogen Negative (Negative); Urine White Blood Cell 1+(6-10/hpf) (Absent)
[2018-12-07] MEDS ORDERED: cefTRIAXone(*) 1 GM in NS 0.9% 50 ML* 50 ML IVPB SCH (19:30)
--- NOTE | 2018-12-07 20:53 | HP ---
CC: Dr. Haley Hill; Mary Reza NP * ADMISSION HISTORY AND PHYSICAL: DATE OF ADMISSION: 12/07/18 PRIMARY CARE PROVIDER: Dr. Hill at [facility]. ATTENDING PROVIDER: Dr. Ely * (DICTATED BY CASH MARISCAL NP) CHIEF COMPLAINT: UTI, altered mental status, and hypomagnesemia. HISTORY OF PRESENT ILLNESS: This is a very pleasant 83-year-old female well known to our service from a recent admission for stroke with hemorrhagic conversion. She was discharged back in October to [facility]. She was in her usual state of health while there. However, over the last week, Mary Reza, the PEDIATRIC HOSPITALIST at [facility], noted that the patient was having some acute changes, mental status changes, some general weakness. There was some concern that the patient because she had a stroke may be having some additional neurologic issues, so she was sent to the emergency department for evaluation. In the ED, the patient did have imaging, CT of the brain, which showed no acute intracranial pathology, chronic small vessel ischemic changes with chronic appearing infarct of the left [employer]IDENT[employer]IAN territory. However, there was no acute infarct or hemorrhage. There was an outpatient urinalysis that showed some nitrites for which she was being treated. So the though was perhaps the patient does have an advancing UTI. Also in the emergency department, she was found to have a bumped troponin, which she has had in the past. She does not have any anginal equivalents; however, given all these factors, it was determined that the patient should be admitted to observation for the night for any additional workup and then potentially send back to [facility] tomorrow. PAST MEDICAL HISTORY: Significant for: 1. Recent CVA with hemorrhagic transformation. 2. Hospital-acquired delirium. 3. Atrial fibrillation. 4. Type 2 diabetes. 5. Hypertension. 6. Depression. 7. Hypothyroidism. 8. Ulcerative colitis. 9. History of NH. 10. Coronary artery disease. 11. Chronic anemia. PAST SURGICAL HISTORY: 1. Pacemaker insertion. 2. Mitral valve replacement. 3. Ablation of atrial fibrillation x2. 4. CABG and multiple PCIs MEDICATIONS: At home include: 1. Levothyroxine 12.5 mcg p.o. daily. 2. Sertraline 25 mg daily. 3. Senna 2 tabs p.o. at bedtime as needed. 4. Tylenol 650 q.4 as needed. 5. Lispro 5 units subcu a.c. 6. Metoprolol tartrate 75 mg p.o. b.i.d. 7. Colazal 1500 mg p.o. b.i.d. 8. Metformin 1000 mg p.o. b.i.d. 9. Coreg 25 mg p.o. b.i.d. 10. Digoxin 0.125 mg p.o. in the evening. 11. Aspirin 81 mg daily. 12. Biotene swish and spit 2 times a day. 13. Pantoprazole 40 mg p.o. daily. 14. Atorvastatin 80 mg daily. 15. Lantus 22 units subcu daily. 16. Ferrous sulfate 325 mg daily. ALLERGIES: The patient has an allergy to PREDNISONE. FAMILY HISTORY: Mother with a history of diabetes. Father with a history of AFib. SOCIAL HISTORY: The patient does not use tobacco. She does not use any drugs and she denies any alcohol use. Surrogate decision maker is her son. REVIEW OF SYSTEMS: The patient denies any fever or chills. She does complain of some general fatigue and weakness. Denies any chest pain. Denies any shortness of breath. No nausea or vomiting. No abdominal pain. No urinary complaints. No arthralgias or myalgias and no further constitutional complaints. PHYSICAL EXAMINATION GENERAL: The patient is awake, alert, in no acute distress. VITAL SIGNS: Blood pressure 162/79, heart rate 82, respiratory rate 17, O2 saturation 96% on room air with a temperature of 97.7. HEENT: The patient is atraumatic, normocephalic. PERRLA. Nonicteric sclerae. Extraocular movements are intact. Oral mucosa is dry. Tongue is midline. NECK: Supple, nontender. No JVD noted. No carotid bruits auscultated. LUNGS: Clear bilaterally to auscultation with no wheezing, rhonchi, or rales. CARDIOVASCULAR: S1, S2 present. Rate is regular. She is paced on telemetry. ABDOMEN: Soft, nontender, nondistended. Positive bowel sounds in all 4 quadrants. : Deferred. MUSCULOSKELETAL: There is no clubbing, no cyanosis, and no edema. She has +2 distal pulses palpable. Full range of motion. NEUROLOGIC: She does have some periods of confusion; however, she is appropriate at this time, able to make her needs known. She is alert and oriented x2. PSYCHIATRIC: Cooperative and appropriate. SKIN: Warm, dry, and intact. DIAGNOSTIC STUDIES/LAB DATA: Laboratories: WBCs 9.8, RBCs 3.52, hemoglobin 10.7, hematocrit 32, platelets 184. Sodium 137, potassium 4.2, chloride 104, CO2 of 26, BUN 19, creatinine 1.03, GFR 50.9, glucose 276, lactic acid 1.1, calcium 9.5, magnesium 1.3. Bilirubin 0.40, AST 14, ALT 6, alk phos 68. Ammonia pending. Troponin is 0.20. Protein 6.7, albumin 3.8, globulin 2.9, albumin-globulin ratio 1.3. Imaging: CT of the head as noted above is negative for any acute infarct, does show her old from her old stroke. Chest x-ray does not show any active cardiopulmonary disease and her EKG shows a paced rhythm. IMPRESSION: Ms. Anderson is an 83-year-old female patient with recent history of hemorrhagic stroke who now presents to the emergency department from her short-term rehab facility with complaints of periods of altered mental status, weakness, hypomagnesemia, and elevated troponin. PLAN: The patient will be admitted to observation. DIAGNOSES: 1. Weakness, altered mental status, etiology unclear. May be secondary to urinary tract infection, general deconditioning, CAD, likely multifactorial and metabolic in nature. At this point, the patient had been treated at [facility] with IV fluids and antibiotics. She was also on antibiotics for ulcerative colitis; however, she still had nitrites in her urine. We will start her on ceftriaxone. She does not appear to be volume depleted and she is not septic or toxic. We will continue to monitor her urine here and follow her urinalysis and culture. 2. History of diabetes. We will continue her home Lantus and lispro with sliding scale. Consistent carbohydrate diet and Accu-Cheks a.c., h.s. Metformin will be continued. 3. History of hypertension. Continue her home medications. 4. For her history of atrial fibrillation, the patient is on digoxin for rate control. She is currently not on anticoagulation secondary to her recent brain bleed. 5. Hypothyroidism. We will continue her Synthroid daily. 6. History of anemia. We will continue ferrous sulfate daily. 7. History of hyperlipidemia. She is on high-dose statin. This will also be continued. 8. Gastroesophageal reflux disease. She will be continued on Protonix daily. 9. For her history of coronary artery disease, she will be continued on her carvedilol 25 mg p.o. b.i.d. and her metoprolol 75 p.o. b.i.d. 10. For history of ulcerative colitis, she will stay on Colazal. 11. For her hypomagnesemia, she will receive 2 g of magnesium sulfate now and recheck her mag in the morning. 12. Urinary tract infection. We will follow her urinalysis and continue her on ceftriaxone. 13. Elevated Troponin. Patient has had elevated trop in the past in a similar range and she does have documented history of CAD, however she does not endorse chest pain. Will continue to trend. The rest of the patient's course will be determined by further diagnostics, laboratories, and any other input from other providers as warranted during this admission. We will continue to monitor the patient overnight and address any issues as they arise. This plan of care has been discussed with Dr. Vilma Ely, the attending on this case. TIME SPENT: Approximately 65 minutes in reviewing the patient and determining admission plan of care. CASH MARISCAL NP [id number]/[facility] #: [id number] AMINA
[2018-12-07] MEDS: BALSALAZIDE SODIUM 750 MG PO SCH (20:54)
[2018-12-07] MEDS: Oral Rinse (Biotene)(NF) 237 ML or 473 ML ORAL RINSE BTL MT SCH (21:03)
[2018-12-07] MEDS: metFORMIN* 1,000 MG TAB PO SCH (21:13)
[2018-12-07] MEDS: Carvedilol TAB* 25 MG PO SCH (21:14)
[2018-12-07] MEDS: Metoprolol Tartrate TAB* 50 mg PO SCH (21:15)
[2018-12-07] MEDS: Insulin LISPRO* 1 UNITS UNIT SUBCUT SCH (21:20)
[2018-12-07] MEDS: Digoxin TAB* 0.125 MG PO SCH (21:22)
[2018-12-07 22:16] LABS: Troponin I 0.24 ng/mL (<0.04)
[2018-12-08] MEDS: Levothyroxine TAB* 25 MCG TAB PO SCH (05:28)
[2018-12-08 06:41] LABS: Magnesium 1.7 mg/dL (1.9-2.7)
[2018-12-08 06:44] LABS: Troponin I 0.57 ng/mL (<0.04)
[2018-12-08] MEDS ORDERED: Magnesium Sulfate 2 GM IV* 2 GM/50 ML BAG IVPB ONE (08:00)
[2018-12-08] MEDS: BALSALAZIDE SODIUM 750 MG PO SCH ×2 (08:20→20:13)
[2018-12-08] MEDS: Oral Rinse (Biotene)(NF) 237 ML or 473 ML ORAL RINSE BTL MT SCH ×2 (08:21→22:27)
[2018-12-08] MEDS: Metoprolol Tartrate TAB* 50 mg PO SCH ×2 (08:23→19:59)
[2018-12-08] MEDS: Atorvastatin* 80 MG TAB PO SCH (08:23)
[2018-12-08] MEDS: metFORMIN* 1,000 MG TAB PO SCH ×2 (08:23→19:57)
[2018-12-08] MEDS: Pantoprazole TAB * 40 MG TAB PO SCH (08:23)
[2018-12-08] MEDS: Carvedilol TAB* 25 MG PO SCH ×2 (08:23→19:59)
[2018-12-08] MEDS: Ferrous Sulfate TAB* 325 MG PO SCH (08:23)
[2018-12-08] MEDS: Aspirin EC TAB* 81 MG TAB.EC PO SCH (08:23)
[2018-12-08] MEDS: Insulin LISPRO* 1 UNITS UNIT SUBCUT SCH ×7 (08:24→22:26)
[2018-12-08] MEDS: Insulin GLARGINE(*) 1 UNITS UNIT SUBCUT SCH (08:25)
--- NOTE | 2018-12-08 10:04 | ECHO ---
Patient: DANIEL PEARL [facility] Rec#: [id number] : 1935 Date: 12/08/2018 Age: 83y Height: 165 cm / 65.0 in Weight: 70 kg / 154.3 lbs Sex: F BSA: 1.77 Room#: 438 Admit Date#: 12/07/2018 Type: Inpatient Referring: Jess Jorgensen Reading: Miguel Ángel Yanez MD Hospitalist Nocturnist Physician: Mirtha Urias,RODRIGOCS,RDMS CC: Moo Morse Transthoracic Echocardiogram Indication: CP BP: 141/55 HR: 82 Rhythm: NSR Findings History: CAD, IN, PCI, MV replacement, CVA, AFIB, ischemic cardiomyopathy, DM, HTN Left Ventricle: The left ventricular chamber size is normal. Mild concentric left ventricular hypertrophy is observed. Mild global hypokinesis of the left ventricle is observed. The estimated ejection fraction is 45-50%. There is abnormal ventricular septal wall motion consistent with right ventricular pacemaker. The assessment of diastolic function is non-diagnostic. The patient was unable to perform a Valsalva maneuver. Left Atrium: The left atrium is moderate to severely dilated. Right Ventricle: The right ventricular chamber size and systolic function are within normal limits. A pacemaker wire is visualized in the right ventricle. Right Atrium: The right atrial cavity size is normal. A pacemaker wire is visualized in the right atrium. Aortic Valve: The aortic valve is trileaflet. The aortic valve leaflets are mildly thickened. There is a trace of aortic regurgitation. There is no evidence of aortic stenosis. Mitral Valve: There is a trace of mitral regurgitation. The mean gradient across the mitral valve is 5 mmHg. The mitral valve area, by pressure half time, is calculated at 1.7 cm2. A porcine bioprosthetic mitral valve is present. The bioprosthetic mitral valve appears to be functioning normally. There is a mobile structure moving with the valve leaflets. Measures 0.8 cm by 0.5 cm Tricuspid Valve: The tricuspid valve leaflets are normal. There is trace tricuspid regurgitation. There is evidence of mild pulmonary hypertension. Pulmonic Valve: The pulmonic valve structure is not well visualized. There is no evidence of pulmonic valve thickening. There is a trace pulmonic regurgitation. Pericardium: There is no significant pericardial effusion. Aorta: The aortic root appears normal. There is no dilatation of the aortic arch. Pulmonary Artery: The main pulmonary artery is not well visualized. Venous: The inferior vena cava is dilated. There is less than 50% respiratory change in the inferior vena cava dimension. Conclusions Mild concentric left ventricular hypertrophy is observed. Mild global hypokinesis of the left ventricle is observed. The estimated ejection fraction is 45-50%. There is abnormal ventricular septal wall motion consistent with right ventricular pacemaker. The assessment of diastolic function is non-diagnostic. A pacemaker wire is visualized in the right ventricle. The right ventricular chamber size and systolic function are within normal limits. The aortic valve leaflets are mildly thickened. There is no evidence of aortic stenosis. A porcine bioprosthetic mitral valve is present. The bioprosthetic mitral valve appears to be functioning normally. There is a mobile structure moving with the valve leaflets. Measures 0.8 cm by 0.5 cm There is a trace of mitral regurgitation. There is trace tricuspid regurgitation. There is evidence of mild pulmonary hypertension. There is no significant pericardial effusion. Compared to study of 09/28/18, the LV function is slightly lower. 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 Measurements Name Value Normal Range RVIDd (AP) 2D 2.8 cm (0.9 - 2.6) RVDdMajor (2D) 2.6 cm (2.2 - 4.4) RAd ISD 4CH 4.9 cm (3.4 - 4.9) RA (A4C)W 3.6 cm (2.9 - 4.6) IVSd (2D) 1.1 cm (0.6 - 1) LVPWd (2D) 1.3 cm (0.6 - 1) LVIDd (2D) 4.6 cm (3.6 - 5.4) LVIDs (2D) 3.8 cm - LV FS (2D) 17 % (25 - 45) Aortic Annulus 2.1 cm (1.4 - 2.6) Ao root diameter (2D) 3.2 cm (2.1 - 3.5) Ascending Ao 2.9 cm (2.1 - 3.4) Aortic arch 2.6 cm (1.8 - 3.4) LA dimension (AP) 2D 4.5 cm (2.3 - 3.8) LAd ISD 4CH 5.1 cm (2.9 - 5.3) LA ISD 4CH W 5.4 cm (2.5 - 4.5) Name Value Normal Range LA ESV BP (A/L) index 57 ml/m2 - Name Value Normal Range MV E-wave Vmax 1.4 m/sec - MV deceleration time 264 msec - MV A-wave Vmax 1 m/sec - MV E:A ratio 1.4 ratio - LV septal e' Vmax 0.04 m/sec - LV lateral e' Vmax 0.04 m/sec - LV E:e' septal ratio 35 ratio - LV E:e' lateral ratio 35 ratio - Name Value Normal Range AV Vmax 1.7 m/sec - AV VTI 31 cm - AV peak gradient 12 mmHg - AV mean gradient 6 mmHg - LVOT diameter 2 cm - LVOT Vmax 1.2 m/sec - LVOT VTI 20.5 cm - LVOT peak gradient 6 mmHg - LVOT mean gradient 3 mmHg - KHOA Vmax 0.5 m/sec - Name Value Normal Range MV Vmax 1.8 m/sec - MV VTI 53 cm - MV peak gradient 13 mmHg - MV mean gradient 5 mmHg - MV PHT 133 msec - MVA (PHT) 1.7 cm2 - MVA (continuity VTI) 1.2 cm2 - Name Value Normal Range TR Vmax 2.7 m/sec - TR peak gradient 29 mmHg - RAP 8 mmHg - RVSP 37 mmHg - IVC diameter 2.2 cm - Name Value Normal Range PV Vmax 0.7 m/sec - PV peak gradient 2 mmHg -
[2018-12-08 10:49] LABS: Troponin I 0.61 ng/mL (<0.04)
[2018-12-08] MEDS: Cefepime* 2 GM in Dextrose 50mL Q24H (Duplex) IV SCH (12:17)
[2018-12-08] MEDS ORDERED: Vancomycin(*) 1,000 MG in NS 0.9% 250 ML* 250 ML IVPB ONE (12:30)
--- NOTE | 2018-12-08 13:56 | CONS ---
CC: Dr. Allen; Dr. Morse at [facility]* CARDIOLOGY CONSULTATION: DATE OF CONSULT: 12/08/18 INDICATION FOR CONSULTATION: Chest pain, abnormal troponin. HISTORY OF PRESENT ILLNESS: The patient is an 83-year-old woman with a history of paroxysmal atrial fibrillation, history of pulmonary vein ablations in the past, history of ICD implantation, history of coronary artery disease, hemorrhagic stroke 2 months ago, who came to the hospital because of mental status changes, general weakness, and some reports of chest pain. The patient does have dementia and having obtained information from her is difficult. The patient's son is very involved in her care, but I have not yet been able to speak to him. The patient was brought from [facility] to the emergency room because of change in mental status, lethargy. In the emergency room, an EKG demonstrates she was in normal sinus rhythm with sinus arrhythmia. Also, there was an elevated troponin level. Again, on speaking with the patient today , she is unable to give any significant history. PAST MEDICAL HISTORY: Significant for atrial fibrillation, coronary artery disease, mitral valve replacement, recent CVA with hemorrhagic transformation, chronic anemia, ulcerative colitis, hypertension. PAST SURGICAL HISTORY: ICD implantation in the past, mitral valve replacement, pulmonary vein ablation for atrial fibrillation x2. OUTPATIENT MEDICATIONS: 1. Levothyroxine 12.5 mcg a day. 2. Sertraline 25 mg a day. 3. Senna tablets. 4. Lispro 5 units. 5. Metoprolol tartrate 75 mg b.i.d. 6. Colazal 1500 mg b.i.d. 7. Metformin 1000 mg b.i.d. 8. Coreg 12.5 mg b.i.d. 9. Digoxin 0.125 mg once a day. 10. Aspirin 81 mg a day. 11. Pantoprazole 40 mg a day. 12. Atorvastatin 80 mg a day. 13. Lantus insulin 22 units daily. ALLERGIES: She is intolerant of PREDNISONE. FAMILY HISTORY: Diabetes and atrial fibrillation. SOCIAL HISTORY: She is . She denies tobacco or alcohol use. There is none in the residential. Her son is her decision maker. REVIEW OF SYSTEMS: Difficult to assess as the patient is unable to give history. PHYSICAL EXAM: Height is 5 feet 5 inches, weight is 154 pounds, temperature 97 , heart rate is 75, blood pressure 155/68, respiratory rate is 16, oxygen saturation 98% on room air. Sclerae anicteric. Oropharynx is pink without erythema. Carotids are 2+ without bruits. JVD is normal. Thyroid is normal. Cardiac Exam: S1, S2 with a 1/6 systolic ejection murmur heard best at the apex. PMI is normal. Lungs are clear to auscultation bilaterally with no dullness to percussion. Abdomen is soft, nontender, nondistended with normoactive bowel sounds. Extremities show no edema. The patient is awake, but unable to give any meaningful information. DIAGNOSTIC STUDIES/LAB DATA: Chemistry is within normal limits. BUN 19, creatinine 1.03. AST and ALT are normal. Initial troponin level 0.2, second troponin 0.24, third troponin 0.61. CBC: White count 9.8, hemoglobin 10, hematocrit 32, platelet count 184. Digoxin level was not drawn. IMPRESSION: The patient is an 83-year-old female, who was brought to the emergency room because of lethargy and change in mental status. Again, the patient is not able to give a cohesive report of the events of last night. The patient was admitted to the hospital. The patient does have an elevated troponin levels, the peak troponin so far is 0.61. Her EKG shows no obvious ischemic EKG changes. The patient's echocardiogram today demonstrates a slight decrease in her LV function and her ejection fraction is now 45%. The patient does have a mitral valve replacement which is functioning normal. There is no evidence of mitral stenosis, no evidence of mitral regurgitation. There is a mobile mass on the valve leaflets themselves that measures 0.5 cm x 0.8 cm in size. No obvious abscess. The other valves are stable. PLAN/RECOMMENDATIONS: For now, my recommendation is the patient be continued on her current medications. Again, I cannot elicit any chest pain symptoms from the patient. At this point, I do not think aggressive measures are appropriate in this patient. I do not think she should go for a workup for a mitral valve replacement given the vegetation on the mitral valve. The patient will get blood work drawn. The patient will get blood cultures drawn. I think it is important to get Dr. Papi Mcbride involved in the case for this vegetation and what suppressive antibiotics the patient should be on. The patient is on digoxin at least what I can tell as an outpatient, may be worthwhile to get a digoxin level given her disorientation. This was discussed with Jess Avila, nurse practitioner. [id number]/[facility] #: [id number] AMINA
--- NOTE | 2018-12-08 15:04 | PN ---
Subjective Date of Service: 12/08/18 Interval History: Patient seen and examined. Patient has had no acute overnight events. Denies chest pain, no SOB, does feel weak. Lengthy discussion with patient's son regarding new findings on ECHO. Objective Active Medications: Acetaminophen (Tylenol Tab*) 650 mg PO Q4H PRN PRN Reason: FEVER/PAIN Aspirin (Aspirin Ec Tab*) 81 mg PO DAILY [facility] Last Admin: 12/08/18 08:23 Dose: 81 mg Atorvastatin Calcium (Lipitor*) 80 mg PO DAILY [facility] Last Admin: 12/08/18 08:23 Dose: 80 mg Balsalazide (Colazal Cap(Nf)) 1,500 mg PO BID [facility]; Protocol Last Admin: 12/08/18 08:20 Dose: Not Given Carvedilol (Coreg Tab*) 25 mg PO BID [facility] Last Admin: 12/08/18 08:23 Dose: 25 mg Dextrose (D50w Syringe 50 Ml*) 12.5 gm IV PUSH .FOR FS < 60 - SS PRN PRN Reason: FS < 60 Digoxin (Lanoxin Tab*) 0.125 mg PO QPM@1700 [facility] Last Admin: 12/07/18 21:22 Dose: 0.125 mg Ferrous Sulfate (Ferrous Sulfate Tab*) 325 mg PO DAILY [facility] Last Admin: 12/08/18 08:23 Dose: 325 mg Cefepime HCl (Maxipime 2 Gm In Dextrose Duplex (*)) 2 gm in 50 mls @ 100 mls/ hr IV Q24H [facility] Last Admin: 12/08/18 12:17 Dose: 100 mls/hr Vancomycin HCl 750 mg/ Sodium (Chloride) 250 mls @ 166.667 mls/hr IVPB Q12H [facility] Insulin Glargine (Lantus(*)) 22 units SUBCUT DAILY [facility] Last Admin: 12/08/18 08:25 Dose: 22 units Insulin Human Lispro (Humalog*) 5 units SUBCUT AC [facility] Last Admin: 12/08/18 12:17 Dose: 5 units Insulin Human Lispro (Humalog*) 0 units SUBCUT ACHS [facility]; Protocol Last Admin: 12/08/18 12:17 Dose: 1 units Levothyroxine Sodium (Synthroid Tab*) 12.5 mcg PO DAILY@0600 [facility] Last Admin: 12/08/18 05:28 Dose: 12.5 mcg Magnesium Hydroxide (Milk Of Magnesia Liq*) 30 ml PO Q4H PRN PRN Reason: CONSTIPATION Metformin HCl (Glucophage*) 1,000 mg PO BID [facility] Last Admin: 12/08/18 08:23 Dose: 1,000 mg Metoprolol Tartrate (Lopressor Tab*) 75 mg PO BID [facility] Last Admin: 12/08/18 08:23 Dose: 75 mg Multi-Ingredient Mouthwash/Gargle (Biotene Dry Mouth Oral Rinse(Nf)) 15 ml MT BID [facility] Last Admin: 12/08/18 08:21 Dose: Not Given Ondansetron HCl (Zofran Inj*) 4 mg IV Q4H PRN PRN Reason: NAUSEA/VOMITING Pantoprazole Sodium (Protonix Tab*) 40 mg PO DAILY [facility] Last Admin: 12/08/18 08:23 Dose: 40 mg Pharmacy Profile Note (Vancomycin Trough Check) 1 note FOLLOW UP 08 ONE Stop: 12/10/18 08:31 Senna (Senokot Tab*) 2 tab PO BEDTIME PRN PRN Reason: CONSTIPATION Last Admin: 12/07/18 21:14 Dose: 2 tab Vital Signs - 8 hr 12/08/18 12/08/18 12/08/18 08:00 11:36 12:19 Temperature 97.2 F 97.2 F Pulse Rate 70 70 Respiratory 18 16 16 Rate Blood Pressure 119/49 119/49 (mmHg) O2 Sat by Pulse 94 94 Oximetry Oxygen Devices in Use Now: None Appearance: alert, NAD Eyes: No Scleral Icterus, PERRLA Ears/Nose/Mouth/Throat: NL Teeth, Lips, Gums, Mucous Membranes Moist Neck: NL Appearance and Movements; NL JVP, Trachea Midline Respiratory: Symmetrical Chest Expansion and Respiratory Effort, Clear to Auscultation Cardiovascular: NL Sounds; No Murmurs; No JVD, - - paced with runs of tachycardia, underlying afib/flutter Abdominal: NL Sounds; No Tenderness; No Distention Lymphatic: No Cervical Adenopathy Extremities: No Edema, No Clubbing, Cyanosis Skin: No Rash or Ulcers, No Nodules or Sclerosis Neurological: NL Sensation, NL Gait, - - A&O x2 Nutrition: Taking PO's Result Diagrams: 12/07/18 16:42 12/07/18 16:42 Additional Lab and Data: Lab Results 12/07/18 12/07/18 Range/Units 16:42 16:42 WBC 9.8 (3.5-10.8) 10^3/uL RBC 3.52 L (3.70-4.87) 10^6 /uL Hgb 10.7 L (12.0-16.0) g/dL Hct 32 L (33-41) % MCV 90 (80-97) fL MCH 31 (27-31) pg MCHC 34 (31-36) g/dL RDW 19 H (10.5-15) % Plt Count 184 (150-450) 10^3/uL MPV 7.8 (7.4-10.4) fL Neut % (Auto) 66.4 % Lymph % (Auto) 22.8 % [place] % (Auto) 8.9 % Eos % (Auto) 1.5 % Baso % (Auto) 0.4 % Absolute Neuts (auto) 6.5 (1.5-7.7) 10^3/ul Absolute Lymphs (auto) 2.2 (1.0-4.8) 10^3/ul Absolute Monos (auto) 0.9 H (0-0.8) 10^3/ul Absolute Eos (auto) 0.1 (0-0.6) 10^3/ul Absolute Basos (auto) 0 (0-0.2) 10^3/ul Absolute Nucleated RBC 0 10^3/ul Nucleated RBC % 0 INR (Anticoag Therapy) 1.16 H (0.77-1.02) Diagnostic Imaging: CARDIAC ECHO: Conclusions Mild concentric left ventricular hypertrophy is observed. Mild global hypokinesis of the left ventricle is observed. The estimated ejection fraction is 45-50%. There is abnormal ventricular septal wall motion consistent with right ventricular pacemaker. The assessment of diastolic function is non-diagnostic. A pacemaker wire is visualized in the right ventricle. The right ventricular chamber size and systolic function are within normal limits. The aortic valve leaflets are mildly thickened. There is no evidence of aortic stenosis. A porcine bioprosthetic mitral valve is present. The bioprosthetic mitral valve appears to be functioning normally. There is a mobile structure moving with the valve leaflets. Measures 0.8 cm by 0.5 cm There is a trace of mitral regurgitation. There is trace tricuspid regurgitation. There is evidence of mild pulmonary hypertension. There is no significant pericardial effusion. Compared to study of 09/28/18, the LV function is slightly lower. 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 - Patient Problems (1) Mitral valve vegetation Code(s): I33.0 - ACUTE AND SUBACUTE INFECTIVE ENDOCARDITIS SNOMED Code(s): 657065449 Comment: - Today's ECHO as above - Consult with Dr. Beau ralph, recommends blood cultures and ID consultation - Will start cefepime and vanco empirically today and follow cultures - Discussed this issue with patient's son, will plan family meeting, as palliative care is now being considered (2) Diabetes Code(s): E11.9 - TYPE 2 DIABETES MELLITUS WITHOUT COMPLICATIONS SNOMED Code(s) : 74266271 Comment: - CC diet, lispro SS and lantus (3) HTN (hypertension) Code(s): I10 - ESSENTIAL (PRIMARY) HYPERTENSION SNOMED Code(s): 68613177 Comment: - Stable on metoprolol (4) Hemorrhagic cerebrovascular accident (CVA) Code(s): I61.9 - NONTRAUMATIC INTRACEREBRAL HEMORRHAGE, UNSPECIFIED SNOMED Code(s): 145789751 Comment: - Noted CVA last month with bleed after patient was started on ASA and Eliquis - CT brain yesterday with no new pathology - Supportive care (5) UTI (urinary tract infection) Comment: - Urine is clear, will DC ceftriaxone (6) Ulcerative colitis Code(s): K51.90 - ULCERATIVE COLITIS, UNSPECIFIED, WITHOUT COMPLICATIONS SNOMED Code(s): 60872415 Comment: - Continue balsalazide (7) Atrial fibrillation Code(s): I48.91 - UNSPECIFIED ATRIAL FIBRILLATION SNOMED Code(s): 52181384 Comment: - Intermittent pacing with underlying afib/flutter with runs of SVT - No AC 2/2 recent ICH - Had recent discharge of her AICD and patient requested to have it turned off - continue tele and supportive care (8) Iron deficiency anemia Code(s): D50.9 - IRON DEFICIENCY ANEMIA, UNSPECIFIED SNOMED Code(s): 57832588 Comment: - Continue ferrous sulfate (9) DNR (do not resuscitate) Comment: - Confirmed that patient recently the defibrillator on her AICD turned off, pacing only Status and Disposition: Inpatient, dispo pending.
[2018-12-08] MEDS: Digoxin TAB* 0.125 MG PO SCH (17:25)
[2018-12-08] MEDS: Ondansetron INJ* 2 MG/ML VIAL IV PRN (19:19)
[2018-12-08] MEDS: Vancomycin(*) 750 MG in NS 0.9% 250 ML* 250 ML IVPB SCH (20:00)
[2018-12-09] MEDS: Levothyroxine TAB* 25 MCG TAB PO SCH (05:08)
[2018-12-09 06:14] LABS: EGFR African American 57.7 (>60); EGFR Non-African American 47.7 (>60)
[2018-12-09] MEDS: Atorvastatin* 80 MG TAB PO SCH (08:47)
[2018-12-09] MEDS: Metoprolol Tartrate TAB* 50 mg PO SCH ×2 (08:48→20:07)
[2018-12-09] MEDS: metFORMIN* 1,000 MG TAB PO SCH ×2 (08:48→20:08)
[2018-12-09] MEDS: Pantoprazole TAB * 40 MG TAB PO SCH (08:48)
[2018-12-09] MEDS: BALSALAZIDE SODIUM 750 MG PO SCH ×2 (08:49→20:09)
[2018-12-09] MEDS: Carvedilol TAB* 25 MG PO SCH ×2 (08:49→20:08)
[2018-12-09] MEDS: Ferrous Sulfate TAB* 325 MG PO SCH (08:49)
[2018-12-09] MEDS: Aspirin EC TAB* 81 MG TAB.EC PO SCH (08:49)
[2018-12-09] MEDS: Insulin LISPRO* 1 UNITS UNIT SUBCUT SCH ×7 (08:54→20:41)
[2018-12-09] MEDS: Insulin GLARGINE(*) 1 UNITS UNIT SUBCUT SCH (08:55)
[2018-12-09] MEDS: Oral Rinse (Biotene)(NF) 237 ML or 473 ML ORAL RINSE BTL MT SCH ×2 (08:55→20:10)
[2018-12-09] MEDS: Vancomycin(*) 750 MG in NS 0.9% 250 ML* 250 ML IVPB SCH ×2 (08:56→20:03)
[2018-12-09] MEDS: Cefepime* 2 GM in Dextrose 50mL Q24H (Duplex) IV SCH (12:16)
--- NOTE | 2018-12-09 14:51 | CONSULT ---
Palliative / Hospice Consult Ordering Provider: Jess FLORIAN-Rico - Subjective Code Status: DNR Advance Directives Location: In Chart MOLST Part A Completed: Yes - on chart MOLST Part E Completed:: Yes - on chart - History or Present Illness History or Present Illness: 83 yo female resident of [facility]() s/p CVA(09/2018) presents to ER with c/ o AMS and weakness. PMH is significant for severe dementia(incontinent of bladder & bowel FAST 7b), paroxysmal afib s/p ablation and pacer insertion, mitral valve replacement 2011, chronic anemia, DM type 2, HTN, depression, hypothyroid, ulcerative colitis, history of RI CAD, CABG PCI with stent 2014, ICD(which has been turned off) and GERD. Ekg vent paced, CXR neg, brain Ct chronic small vessel ischemia changes chronic [employer]. ECHO 45-50% mitral valve vegetation. All history is from medical records and family pt is unable to contribute. Pt is non smoker/ no drugs & no etoh. Being treated for mitral valve vegetation now with change in alertness. Lab Values: Abnormal Lab Results 12/08/18 12/08/18 12/09/18 16:16 19:56 05:14 BUN 17 Creatinine 1.09 H Est GFR ( Amer) 57.7 Est GFR (Non-Af Amer) 47.7 POC Glucose (mg/dL) 99 93 12/09/18 12/09/18 07:20 11:11 BUN Creatinine Est GFR ( Amer) Est GFR (Non-Af Amer) POC Glucose (mg/dL) 161 H 101 H Laboratory Last Values WBC 9.8 10^3/uL (3.5-10.8) 12/07/18 16:42 RBC 3.52 10^6 /uL (3.70-4.87) L 12/07/18 16:42 Hgb 10.7 g/dL (12.0-16.0) L 12/07/18 16:42 Hct 32 % (33-41) L 12/07/18 16:42 MCV 90 fL (80-97) 12/07/18 16:42 MCH 31 pg (27-31) 12/07/18 16:42 MCHC 34 g/dL (31-36) 12/07/18 16:42 RDW 19 % (10.5-15) H 12/07/18 16:42 Plt Count 184 10^3/uL (150-450) 12/07/18 16:42 MPV 7.8 fL (7.4-10.4) 12/07/18 16:42 Neut % (Auto) 66.4 % 12/07/18 16:42 Lymph % (Auto) 22.8 % 12/07/18 16:42 [place] % (Auto) 8.9 % 12/07/18 16:42 Eos % (Auto) 1.5 % 12/07/18 16:42 Baso % (Auto) 0.4 % 12/07/18 16:42 Absolute Neuts (auto) 6.5 10^3/ul (1.5-7.7) 12/07/18 16:42 Absolute Lymphs (auto) 2.2 10^3/ul (1.0-4.8) 12/07/18 16:42 Absolute Monos (auto) 0.9 10^3/ul (0-0.8) H 12/07/18 16:42 Absolute Eos (auto) 0.1 10^3/ul (0-0.6) 12/07/18 16:42 Absolute Basos (auto) 0 10^3/ul (0-0.2) 12/07/18 16:42 Absolute Nucleated RBC 0 10^3/ul 12/07/18 16:42 Nucleated RBC % 0 12/07/18 16:42 INR (Anticoag Therapy) 1.16 (0.77-1.02) H 12/07/18 16:42 Sodium 137 mmol/L (135-145) 12/07/18 16:42 Potassium 4.2 mmol/L (3.5-5.0) 12/07/18 16:42 Chloride 104 mmol/L (101-111) 12/07/18 16:42 Carbon Dioxide 26 mmol/L (22-32) 12/07/18 16:42 Anion Gap 7 mmol/L (2-11) 12/07/18 16:42 BUN 17 mg/dL (6-24) 12/09/18 05:14 Creatinine 1.09 mg/dL (0.51-0.95) H 12/09/18 05:14 Est GFR ( Amer) 57.7 (>60) 12/09/18 05:14 Est GFR (Non-Af Amer) 47.7 (>60) 12/09/18 05:14 BUN/Creatinine Ratio 18.4 (8-20) 12/07/18 16:42 Glucose 276 mg/dL (70-100) H 12/07/18 16:42 POC Glucose (mg/dL) 101 mg/dL (70-100) H 12/09/18 11:11 Lactic Acid 1.1 mmol/L (0.5-2.0) 12/07/18 16:42 Calcium 9.5 mg/dL (8.6-10.3) 12/07/18 16:42 Magnesium 1.7 mg/dL (1.9-2.7) L 12/08/18 05:37 Total Bilirubin 0.40 mg/dL (0.2-1.0) 12/07/18 16:42 AST 14 U/L (13-39) 12/07/18 16:42 ALT 6 U/L (7-52) L 12/07/18 16:42 Alkaline Phosphatase 68 U/L (34-104) 12/07/18 16:42 Ammonia 31 mcmol/L (16-53) 12/07/18 17:33 Troponin I 0.61 ng/mL (<0.04) H* 12/08/18 10:02 Total Protein 6.7 g/dL (6.4-8.9) 12/07/18 16:42 Albumin 3.8 g/dL (3.2-5.2) 12/07/18 16:42 Globulin 2.9 g/dL (2-4) 12/07/18 16:42 Albumin/Globulin Ratio 1.3 (1-3) 12/07/18 16:42 Urine Color Yellow 12/07/18 16:17 Urine Appearance Clear 12/07/18 16:17 Urine pH 6.0 (5-9) 12/07/18 16:17 Ur Specific [place] 1.011 (1.010-1.030) 12/07/18 16:17 Urine Protein Negative (Negative) 12/07/18 16:17 Urine Ketones Negative (Negative) 12/07/18 16:17 Urine Blood Negative (Negative) 12/07/18 16:17 Urine Nitrate Negative (Negative) 12/07/18 16:17 Urine Bilirubin Negative (Negative) 12/07/18 16:17 Urine Urobilinogen Negative (Negative) 12/07/18 16:17 Ur Leukocyte Esterase 1+ (Negative) A 12/07/18 16:17 Urine WBC (Auto) 1+(6-10/hpf) (Absent) A 12/07/18 16:17 Urine RBC (Auto) Absent (Absent) 12/07/18 16:17 Urine Bacteria Absent (Absent) 12/07/18 16:17 Urine Glucose 2+(150 mg/dl) (Negative) A 12/07/18 16:17 Digoxin 0.7 ng/ml (0.8-2.0) L 12/08/18 13:25 - Objective Active Medications: Acetaminophen (Tylenol Tab*) 650 mg PO Q4H PRN PRN Reason: FEVER/PAIN Aspirin (Aspirin Ec Tab*) 81 mg PO DAILY [facility] Last Admin: 12/09/18 08:49 Dose: 81 mg Atorvastatin Calcium (Lipitor*) 80 mg PO DAILY [facility] Last Admin: 12/09/18 08:47 Dose: 80 mg Balsalazide (Colazal Cap(Nf)) 1,500 mg PO BID [facility]; Protocol Last Admin: 12/09/18 08:49 Dose: 1,500 mg Carvedilol (Coreg Tab*) 25 mg PO BID [facility] Last Admin: 12/09/18 08:49 Dose: 25 mg Dextrose (D50w Syringe 50 Ml*) 12.5 gm IV PUSH .FOR FS < 60 - SS PRN PRN Reason: FS < 60 Digoxin (Lanoxin Tab*) 0.125 mg PO QPM@1700 [facility] Last Admin: 12/08/18 17:25 Dose: 0.125 mg Ferrous Sulfate (Ferrous Sulfate Tab*) 325 mg PO DAILY [facility] Last Admin: 12/09/18 08:49 Dose: 325 mg Cefepime HCl (Maxipime 2 Gm In Dextrose Duplex (*)) 2 gm in 50 mls @ 100 mls/ hr IV Q24H [facility] Last Admin: 12/09/18 12:16 Dose: 100 mls/hr Vancomycin HCl 750 mg/ Sodium (Chloride) 250 mls @ 166.667 mls/hr IVPB Q12H [facility] Last Admin: 12/09/18 08:56 Dose: 166.667 mls/hr Insulin Glargine (Lantus(*)) 22 units SUBCUT DAILY [facility] Last Admin: 12/09/18 08:55 Dose: 22 units Insulin Human Lispro (Humalog*) 5 units SUBCUT AC [facility] Last Admin: 12/09/18 12:11 Dose: Not Given Insulin Human Lispro (Humalog*) 0 units SUBCUT ACHS [facility]; Protocol Last Admin: 12/09/18 12:11 Dose: Not Given Levothyroxine Sodium (Synthroid Tab*) 12.5 mcg PO DAILY@0600 [facility] Last Admin: 12/09/18 05:08 Dose: 12.5 mcg Magnesium Hydroxide (Milk Of Magnesia Liq*) 30 ml PO Q4H PRN PRN Reason: CONSTIPATION Metformin HCl (Glucophage*) 1,000 mg PO BID [facility] Last Admin: 12/09/18 08:48 Dose: 1,000 mg Metoprolol Tartrate (Lopressor Tab*) 75 mg PO BID [facility] Last Admin: 12/09/18 08:48 Dose: 75 mg Multi-Ingredient Mouthwash/Gargle (Biotene Dry Mouth Oral Rinse(Nf)) 15 ml MT BID [facility] Last Admin: 12/09/18 08:55 Dose: 15 ml Ondansetron HCl (Zofran Inj*) 4 mg IV Q4H PRN PRN Reason: NAUSEA/VOMITING Last Admin: 12/08/18 19:19 Dose: 4 mg Pantoprazole Sodium (Protonix Tab*) 40 mg PO DAILY [facility] Last Admin: 12/09/18 08:48 Dose: 40 mg Pharmacy Profile Note (Vancomycin Trough Check) 1 note FOLLOW UP 0830 ONE Stop: 12/10/18 08:31 Senna (Senokot Tab*) 2 tab PO BEDTIME PRN PRN Reason: CONSTIPATION Last Admin: 12/07/18 21:14 Dose: 2 tab Vital Signs: Vital Signs: Temp Pulse Resp BP Pulse Ox 98.3 F 72 20 120/42 93 12/09/18 11:28 12/09/18 11:28 12/09/18 11:28 12/09/18 11:28 12/09/18 11:28 Patient Weight: Weight 69.944 kg Intake and Output: Intake & Output 12/07/18 12/08/18 12/09/18 12/10/18 06:59 06:59 06:59 06:59 Intake Total 1050 905 466 Output Total 0 Balance 1050 905 466 Weight 69.944 kg Intake: IV Fluids 1050 97 ABX - CEFTRIAXONE 50 ABX - VANCOMYCIN 27 IVPB 638 346 ABX - CEFTRIAXONE 60 ABX - VANCOMYCIN 255 286 Oral 0 170 120 Output: Urine 0 Other: Estimated Void Large # Bowel Movements 1 Estimated Stool Amount Medium # Voids 1 ADLs: Meal Record Start: 12/07/18 18: 07 Freq: DAILY@0900,1400,1800 Status: Active Protocol: Created 12/07/18 18:07 System (Rec: 12/07/18 18:07 System [email or web address]) Document 12/08/18 09:00 [id number] (Rec: 12/08/18 10:29 [id number]) Document 12/08/18 14:00 [id number] (Rec: 12/08/18 15:27 [id number]) Document 12/08/18 18:00 [id number] (Rec: 12/08/18 18:44 [id number] TELE-C01) Document 12/09/18 14:00 [id number] (Rec: 12/09/18 14:16 [id number] TELE-C05) Intake and Output Start: 12/07/18 18: 07 Freq: DAILY@0600,1400,2200 Status: Active Protocol: Created 12/07/18 18:07 System (Rec: 12/07/18 18:07 System [id number]) Document 12/07/18 22:00 [id number] (Rec: 12/07/18 23:12 [id number]) Document 12/08/18 06:00 [id number] (Rec: 12/08/18 07:24 [id number] TELE-C08) Document 12/08/18 14:00 [id number] (Rec: 12/08/18 15:27 [id number] TELE-C07) Document 12/08/18 22:00 [id number] (Rec: 12/08/18 22:44 [id number] TELE-C01) Document 12/09/18 06:00 [id number] (Rec: 12/09/18 06:46 [id number] TELE-C03) Eyes: No Scleral Icterus, PERRLA Ears/Nose/Mouth/Throat: NL Teeth, Lips, Gums, Mucous Membranes Moist Neck: NL Appearance and Movements; NL JVP, Trachea Midline Cardiovascular: NL Sounds; No Murmurs; No JVD, - - paced with runs of tachycardia, underlying afib/flutter Abdominal: NL Sounds; No Tenderness; No Distention Extremities: No Edema, No Clubbing, Cyanosis Neurological: NL Sensation, NL Gait, - - A&O x2 - Assessment Assessment: 83 yo female resident of [facility] s/p CVA(09/2018) with mitral vegetation and change in mental status eligible for hospice - Plan Consult Plan (MU): Hospice Plan: Long discussion with pt's son and daughter in law about care options. They are aware she has a poor prognosis with the mitral vegetation especially with her recent change in alertness. Discussed hospice benefits and gave them a brochure. Daughter in law volunteers for hospice. They are in the process of applying for medicaid but having issues I gave them Christie Weiss's number. 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 They are entertaining a few options for placement. They can go to hospice residence and pay the first week and plan on medicaid starting or go back to [facility] which they are not excited about, if pt still qualifies for the rehab benefit or go home with home hospice but that would require the daughter in law taking off from work. Pt is eligible for hospice based on severe dementia, s/p CVA, CAD and paroxysmal afib. KPS30% PPS 30% - Time On Unit Date of Evaluation: 12/09/18 Hospice Consult Time in: 12:30 Hospice Consult Time Out: 02:00 Hospice Consult Time Total: -630 > 50% of Time Spend In Counseling or Coordinating Care: Yes
[2018-12-09] MEDS: Digoxin TAB* 0.125 MG PO SCH (16:11)
--- NOTE | 2018-12-09 17:38 | PN ---
Subjective Date of Service: 12/09/18 Interval History: Patient seen and examined. Appears more lethargic today, with transient desats. Kept falling asleep when staff got her OOB to chair. Requested primary RN to place patient back in bed with O2 for support. Some low sugars in the 70-101 range. Also had 7 beat run of Vtach today. Objective Active Medications: Acetaminophen (Tylenol Tab*) 650 mg PO Q4H PRN PRN Reason: FEVER/PAIN Aspirin (Aspirin Ec Tab*) 81 mg PO DAILY [facility] Last Admin: 12/09/18 08:49 Dose: 81 mg Atorvastatin Calcium (Lipitor*) 80 mg PO DAILY [facility] Last Admin: 12/09/18 08:47 Dose: 80 mg Balsalazide (Colazal Cap(Nf)) 1,500 mg PO BID [facility]; Protocol Last Admin: 12/09/18 08:49 Dose: 1,500 mg Carvedilol (Coreg Tab*) 25 mg PO BID [facility] Last Admin: 12/09/18 08:49 Dose: 25 mg Dextrose (D50w Syringe 50 Ml*) 12.5 gm IV PUSH .FOR FS < 60 - SS PRN PRN Reason: FS < 60 Digoxin (Lanoxin Tab*) 0.125 mg PO QPM@1700 [facility] Last Admin: 12/09/18 16:11 Dose: 0.125 mg Ferrous Sulfate (Ferrous Sulfate Tab*) 325 mg PO DAILY [facility] Last Admin: 12/09/18 08:49 Dose: 325 mg Cefepime HCl (Maxipime 2 Gm In Dextrose Duplex (*)) 2 gm in 50 mls @ 100 mls/ hr IV Q24H [facility] Last Admin: 12/09/18 12:16 Dose: 100 mls/hr Vancomycin HCl 750 mg/ Sodium (Chloride) 250 mls @ 166.667 mls/hr IVPB Q12H [facility] Last Admin: 12/09/18 08:56 Dose: 166.667 mls/hr Insulin Glargine (Lantus(*)) 22 units SUBCUT DAILY [facility] Last Admin: 12/09/18 08:55 Dose: 22 units Insulin Human Lispro (Humalog*) 5 units SUBCUT AC [facility] Last Admin: 12/09/18 16:10 Dose: Not Given Insulin Human Lispro (Humalog*) 0 units SUBCUT ACHS [facility]; Protocol Last Admin: 12/09/18 16:11 Dose: Not Given Levothyroxine Sodium (Synthroid Tab*) 12.5 mcg PO DAILY@0600 [facility] Last Admin: 12/09/18 05:08 Dose: 12.5 mcg Magnesium Hydroxide (Milk Of Magnesia Liq*) 30 ml PO Q4H PRN PRN Reason: CONSTIPATION Metformin HCl (Glucophage*) 1,000 mg PO BID [facility] Last Admin: 12/09/18 08:48 Dose: 1,000 mg Metoprolol Tartrate (Lopressor Tab*) 75 mg PO BID [facility] Last Admin: 12/09/18 08:48 Dose: 75 mg Multi-Ingredient Mouthwash/Gargle (Biotene Dry Mouth Oral Rinse(Nf)) 15 ml MT BID [facility] Last Admin: 12/09/18 08:55 Dose: 15 ml Ondansetron HCl (Zofran Inj*) 4 mg IV Q4H PRN PRN Reason: NAUSEA/VOMITING Last Admin: 12/08/18 19:19 Dose: 4 mg Pantoprazole Sodium (Protonix Tab*) 40 mg PO DAILY [facility] Last Admin: 12/09/18 08:48 Dose: 40 mg Pharmacy Profile Note (Vancomycin Trough Check) 1 note FOLLOW UP 0830 ONE Stop: 12/10/18 08:31 Senna (Senokot Tab*) 2 tab PO BEDTIME PRN PRN Reason: CONSTIPATION Last Admin: 12/07/18 21:14 Dose: 2 tab Vital Signs - 8 hr 12/09/18 12/09/18 12/09/18 11:28 15:32 16:11 Temperature 98.3 F 98.0 F Pulse Rate 72 68 72 Respiratory 20 16 Rate Blood Pressure 120/42 122/43 (mmHg) O2 Sat by Pulse 93 98 Oximetry Oxygen Devices in Use Now: Nasal Cannula Appearance: Pale, frail, lethargic Eyes: No Scleral Icterus, PERRLA Ears/Nose/Mouth/Throat: NL Teeth, Lips, Gums, Mucous Membranes Moist Neck: NL Appearance and Movements; NL JVP, Trachea Midline Respiratory: - - crackles bilat bases Cardiovascular: NL Sounds; No Murmurs; No JVD, - - paced with run of Vtach, underlying afib Abdominal: NL Sounds; No Tenderness; No Distention Extremities: No Edema, No Clubbing, Cyanosis Skin: No Rash or Ulcers Neurological: - - confused at times but appropriate Nutrition: Taking PO's, - - decreased PO intake Result Diagrams: 12/07/18 16:42 12/09/18 05:14 Additional Lab and Data: Lab Results 12/07/18 12/07/18 Range/Units 16:42 16:42 WBC 9.8 (3.5-10.8) 10^3/uL RBC 3.52 L (3.70-4.87) 10^6 /uL Hgb 10.7 L (12.0-16.0) g/dL Hct 32 L (33-41) % MCV 90 (80-97) fL MCH 31 (27-31) pg MCHC 34 (31-36) g/dL RDW 19 H (10.5-15) % Plt Count 184 (150-450) 10^3/uL MPV 7.8 (7.4-10.4) fL Neut % (Auto) 66.4 % Lymph % (Auto) 22.8 % [place] % (Auto) 8.9 % Eos % (Auto) 1.5 % Baso % (Auto) 0.4 % Absolute Neuts (auto) 6.5 (1.5-7.7) 10^3/ul Absolute Lymphs (auto) 2.2 (1.0-4.8) 10^3/ul Absolute Monos (auto) 0.9 H (0-0.8) 10^3/ul Absolute Eos (auto) 0.1 (0-0.6) 10^3/ul Absolute Basos (auto) 0 (0-0.2) 10^3/ul Absolute Nucleated RBC 0 10^3/ul Nucleated RBC % 0 INR (Anticoag Therapy) 1.16 H (0.77-1.02) Microbiology and Other Data: Microbiology 12/08/18 15:34 Aerobic Blood Culture - Preliminary Blood Venous No Growth Day 1 Anaerobic Blood Culture - Preliminary No Growth Day 1 12/08/18 11:36 Aerobic Blood Culture - Preliminary Blood Venous No Growth Day 1 Anaerobic Blood Culture - Preliminary No Growth Day 1 12/08/18 11:40 Aerobic Blood Culture - Preliminary Blood Venous No Growth Day 1 Anaerobic Blood Culture - Preliminary No Growth Day 1 Diagnostic Imaging: CARDIAC ECHO: Conclusions Mild concentric left ventricular hypertrophy is observed. Mild global hypokinesis of the left ventricle is observed. The estimated ejection fraction is 45-50%. There is abnormal ventricular septal wall motion consistent with right ventricular pacemaker. The assessment of diastolic function is non-diagnostic. A pacemaker wire is visualized in the right ventricle. The right ventricular chamber size and systolic function are within normal limits. The aortic valve leaflets are mildly thickened. There is no evidence of aortic stenosis. A porcine bioprosthetic mitral valve is present. The bioprosthetic mitral valve appears to be functioning normally. There is a mobile structure moving with the valve leaflets. Measures 0.8 cm by 0.5 cm There is a trace of mitral regurgitation. There is trace tricuspid regurgitation. There is evidence of mild pulmonary hypertension. There is no significant pericardial effusion. Compared to study of 09/28/18, the LV function is slightly lower. 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 Beau ralph, recommends blood cultures and ID consultation - Continue cefepime and vanco empirically today and follow cultures, pending recs from ID regarding continued atbx - Extensive family meetings and discussion, patient will be referred for hospice when plan can be decided, as she is not a candidate for another valve replacement or any inveasive measures. (2) Diabetes Code(s): E11.9 - TYPE 2 DIABETES MELLITUS WITHOUT COMPLICATIONS SNOMED Code(s) : 23854014 Comment: - CC diet, lispro SS - discontinue lantus, sugars running low (3) HTN (hypertension) Code(s): I10 - ESSENTIAL (PRIMARY) HYPERTENSION SNOMED Code(s): 72384086 Comment: - Stable on metoprolol (4) Hemorrhagic cerebrovascular accident (CVA) Code(s): I61.9 - NONTRAUMATIC INTRACEREBRAL HEMORRHAGE, UNSPECIFIED SNOMED Code(s): 080912026 Comment: - Noted CVA last month with bleed after patient was started on ASA and Eliquis - CT brain yesterday with no new pathology - Supportive care (5) UTI (urinary tract infection) Comment: - Urine is clear, will DC ceftriaxone (6) Ulcerative colitis Code(s): K51.90 - ULCERATIVE COLITIS, UNSPECIFIED, WITHOUT COMPLICATIONS SNOMED Code(s): 39579681 Comment: - Continue balsalazide (7) Atrial fibrillation Code(s): I48.91 - UNSPECIFIED ATRIAL FIBRILLATION SNOMED Code(s): 87366768 Comment: - Intermittent pacing with underlying afib/flutter with runs of SVT and Vtach - No AC 2/2 recent ICH - Had recent discharge of her AICD and patient requested to have it turned off - continue tele and supportive care (8) Iron deficiency anemia Code(s): D50.9 - IRON DEFICIENCY ANEMIA, UNSPECIFIED SNOMED Code(s): 44856745 Comment: - Continue ferrous sulfate (9) DNR (do not resuscitate) Comment: - Confirmed that patient recently the defibrillator on her AICD turned off, pacing only Status and Disposition: Inpatient. Given additional change in mental status today with new O2 requirement, concern that patient is failing. Continue pursing hospice referral and appropriate disposition. Will likely move to [facility] after seen by ID and hospice plan can be determined.
[2018-12-09] MEDS: Acetaminophen TAB* 325 MG PO PRN (21:13)
[2018-12-10] MEDS: Levothyroxine TAB* 25 MCG TAB PO SCH (05:22)
[2018-12-10 08:28] LABS: EGFR African American 55.9 (>60); EGFR Non-African American 46.2 (>60)
[2018-12-10] MEDS ORDERED: Vancomycin Trough Check NOTE FOLLOW UP ONE (08:30)
[2018-12-10] MEDS: Insulin LISPRO* 1 UNITS UNIT SUBCUT SCH ×4 (08:33→12:00)
[2018-12-10] MEDS: Insulin GLARGINE(*) 1 UNITS UNIT SUBCUT SCH (08:47)
[2018-12-10] MEDS: BALSALAZIDE SODIUM 750 MG PO SCH ×2 (08:48→20:56)
[2018-12-10] MEDS: metFORMIN* 1,000 MG TAB PO SCH ×2 (08:49→21:07)
[2018-12-10] MEDS: Atorvastatin* 80 MG TAB PO SCH (08:49)
[2018-12-10] MEDS: Pantoprazole TAB * 40 MG TAB PO SCH (08:49)
[2018-12-10] MEDS: Aspirin EC TAB* 81 MG TAB.EC PO SCH (08:49)
[2018-12-10] MEDS: Vancomycin(*) 750 MG in NS 0.9% 250 ML* 250 ML IVPB SCH (08:49)
[2018-12-10] MEDS: Metoprolol Tartrate TAB* 50 mg PO SCH ×2 (08:50→21:07)
[2018-12-10] MEDS: Ferrous Sulfate TAB* 325 MG PO SCH (08:50)
[2018-12-10] MEDS: Oral Rinse (Biotene)(NF) 237 ML or 473 ML ORAL RINSE BTL MT SCH ×2 (08:50→21:08)
[2018-12-10] MEDS: Carvedilol TAB* 25 MG PO SCH ×2 (08:50→21:10)
--- NOTE | 2018-12-10 14:49 | PN ---
Subjective Date of Service: 12/10/18 Interval History: Patient examined. OOB to denise-chair. Remains on O2, confused but appropriate. Very sleepy, offers no complaints other than fatigue. Objective Active Medications: Acetaminophen (Tylenol Tab*) 650 mg PO Q4H PRN PRN Reason: FEVER/PAIN Last Admin: 12/09/18 21:13 Dose: 650 mg Aspirin (Aspirin Ec Tab*) 81 mg PO DAILY [facility] Last Admin: 12/10/18 08:49 Dose: 81 mg Atorvastatin Calcium (Lipitor*) 80 mg PO DAILY [facility] Last Admin: 12/10/18 08:49 Dose: 80 mg Balsalazide (Colazal Cap(Nf)) 1,500 mg PO BID [facility]; Protocol Last Admin: 12/10/18 08:48 Dose: 1,500 mg Carvedilol (Coreg Tab*) 25 mg PO BID [facility] Last Admin: 12/10/18 08:50 Dose: 25 mg Dextrose (D50w Syringe 50 Ml*) 12.5 gm IV PUSH .FOR FS < 60 - SS PRN PRN Reason: FS < 60 Digoxin (Lanoxin Tab*) 0.125 mg PO QPM@1700 [facility] Last Admin: 12/09/18 16:11 Dose: 0.125 mg Ferrous Sulfate (Ferrous Sulfate Tab*) 325 mg PO DAILY [facility] Last Admin: 12/10/18 08:50 Dose: 325 mg Vancomycin HCl 500 mg/ Sodium (Chloride) 250 mls @ 0 mls/hr IVPB Q12H [facility] Insulin Glargine (Lantus(*)) 22 units SUBCUT DAILY [facility] Last Admin: 12/10/18 08:47 Dose: 22 units Insulin Human Lispro (Humalog*) 5 units SUBCUT AC [facility] Last Admin: 12/10/18 12:00 Dose: 5 units Insulin Human Lispro (Humalog*) 0 units SUBCUT ACHS [facility]; Protocol Last Admin: 12/10/18 12:00 Dose: 2 units Levothyroxine Sodium (Synthroid Tab*) 12.5 mcg PO DAILY@0600 [facility] Last Admin: 12/10/18 05:22 Dose: 12.5 mcg Magnesium Hydroxide (Milk Of Magnesia Liq*) 30 ml PO Q4H PRN PRN Reason: CONSTIPATION Metformin HCl (Glucophage*) 1,000 mg PO BID [facility] Last Admin: 12/10/18 08:49 Dose: 1,000 mg Metoprolol Tartrate (Lopressor Tab*) 75 mg PO BID [facility] Last Admin: 12/10/18 08:50 Dose: 75 mg Multi-Ingredient Mouthwash/Gargle (Biotene Dry Mouth Oral Rinse(Nf)) 15 ml MT BID [facility] Last Admin: 12/10/18 08:50 Dose: 15 ml Ondansetron HCl (Zofran Inj*) 4 mg IV Q4H PRN PRN Reason: NAUSEA/VOMITING Last Admin: 12/08/18 19:19 Dose: 4 mg Pantoprazole Sodium (Protonix Tab*) 40 mg PO DAILY [facility] Last Admin: 12/10/18 08:49 Dose: 40 mg Pharmacy Profile Note (Vancomycin Trough Check) 1 note FOLLOW UP 829 ONE Stop: 12/12/18 08:31 Senna (Senokot Tab*) 2 tab PO BEDTIME PRN PRN Reason: CONSTIPATION Last Admin: 12/07/18 21:14 Dose: 2 tab Vital Signs - 8 hr 12/10/18 12/10/18 12/10/18 07:18 07:44 11:57 Temperature 97.8 F 98.8 F Pulse Rate 72 70 Respiratory 20 18 20 Rate Blood Pressure 158/57 130/35 (mmHg) O2 Sat by Pulse 97 98 Oximetry 12/10/18 13:47 Temperature 97.6 F Pulse Rate 74 Respiratory 18 Rate Blood Pressure 138/80 (mmHg) O2 Sat by Pulse 97 Oximetry Oxygen Devices in Use Now: Nasal Cannula Appearance: sleepy, arousable, NAD Eyes: No Scleral Icterus, PERRLA Ears/Nose/Mouth/Throat: NL Teeth, Lips, Gums, Mucous Membranes Moist Neck: NL Appearance and Movements; NL JVP, Trachea Midline Respiratory: Symmetrical Chest Expansion and Respiratory Effort, Clear to Auscultation Cardiovascular: No Edema, - - paced, irregular Abdominal: NL Sounds; No Tenderness; No Distention, No Hepatosplenomegaly Extremities: No Edema, No Clubbing, Cyanosis Skin: No Rash or Ulcers Neurological: - - alert to self Nutrition: - - poor PO intake Result Diagrams: 12/07/18 16:42 12/10/18 07:57 Additional Lab and Data: Lab Results 12/07/18 12/07/18 Range/Units 16:42 16:42 WBC 9.8 (3.5-10.8) 10^3/uL RBC 3.52 L (3.70-4.87) 10^6 /uL Hgb 10.7 L (12.0-16.0) g/dL Hct 32 L (33-41) % MCV 90 (80-97) fL MCH 31 (27-31) pg MCHC 34 (31-36) g/dL RDW 19 H (10.5-15) % Plt Count 184 (150-450) 10^3/uL MPV 7.8 (7.4-10.4) fL Neut % (Auto) 66.4 % Lymph % (Auto) 22.8 % [place] % (Auto) 8.9 % Eos % (Auto) 1.5 % Baso % (Auto) 0.4 % Absolute Neuts (auto) 6.5 (1.5-7.7) 10^3/ul Absolute Lymphs (auto) 2.2 (1.0-4.8) 10^3/ul Absolute Monos (auto) 0.9 H (0-0.8) 10^3/ul Absolute Eos (auto) 0.1 (0-0.6) 10^3/ul Absolute Basos (auto) 0 (0-0.2) 10^3/ul Absolute Nucleated RBC 0 10^3/ul Nucleated RBC % 0 INR (Anticoag Therapy) 1.16 H (0.77-1.02) Microbiology and Other Data: Microbiology 12/08/18 15:34 Aerobic Blood Culture - Preliminary Blood Venous No Growth Day 1 Anaerobic Blood Culture - Preliminary No Growth Day 1 12/08/18 11:36 Aerobic Blood Culture - Preliminary Blood Venous No Growth Day 1 Anaerobic Blood Culture - Preliminary No Growth Day 1 12/08/18 11:40 Aerobic Blood Culture - Preliminary Blood Venous No Growth Day 1 Anaerobic Blood Culture - Preliminary No Growth Day 1 Diagnostic Imaging: CARDIAC ECHO: Conclusions Mild concentric left ventricular hypertrophy is observed. Mild global hypokinesis of the left ventricle is observed. The estimated ejection fraction is 45-50%. There is abnormal ventricular septal wall motion consistent with right ventricular pacemaker. The assessment of diastolic function is non-diagnostic. A pacemaker wire is visualized in the right ventricle. The right ventricular chamber size and systolic function are within normal limits. The aortic valve leaflets are mildly thickened. There is no evidence of aortic stenosis. A porcine bioprosthetic mitral valve is present. The bioprosthetic mitral valve appears to be functioning normally. There is a mobile structure moving with the valve leaflets. Measures 0.8 cm by 0.5 cm There is a trace of mitral regurgitation. There is trace tricuspid regurgitation. There is evidence of mild pulmonary hypertension. There is no significant pericardial effusion. Compared to study of 09/28/18, the LV function is slightly lower. The Mitral valve mass is newly seen Assess/Plan/Problems-Billing Assessment: This is an 83 year old female with recent hx of CVA with hemorrhagic conversion , CAD, AL, mitral valve replacement that was sent from [facility] with complaints of weakness, chest pain and potential UTI, found to have vegetation on mitral valve. 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 Beau ralph, recommends blood cultures and ID consultation - Per ID, will continue vanco 500mg BID, transition to doxy PO at discharge - Extensive family meetings and discussion, patient will be referred for hospice when plan can be decided, as she is not a candidate for another valve replacement or any invasive measures. - Will discontinue telemetry (2) Encephalopathy Code(s): G93.40 - ENCEPHALOPATHY, UNSPECIFIED SNOMED Code(s): 24997663 Comment: - Source unclear, although cardiac disease/Vtach/mitral valve vegetation/ recent hospitalization/recent intracerebral hemorrhage are likely all contributing - Supportive care (3) Diabetes Code(s): E11.9 - TYPE 2 DIABETES MELLITUS WITHOUT COMPLICATIONS SNOMED Code(s) : 86979110 Comment: - CC diet, lispro SS - discontinue lantus, sugars running low (4) HTN (hypertension) Code(s): I10 - ESSENTIAL (PRIMARY) HYPERTENSION SNOMED Code(s): 12701372 Comment: - Stable on metoprolol (5) Hemorrhagic cerebrovascular accident (CVA) Code(s): I61.9 - NONTRAUMATIC INTRACEREBRAL HEMORRHAGE, UNSPECIFIED SNOMED Code(s): 246605384 Comment: - Noted CVA last month with bleed after patient was started on ASA and Eliquis - CT brain yesterday with no new pathology - Supportive care (6) UTI (urinary tract infection) Comment: - Urine is clear, will DC ceftriaxone (7) Ulcerative colitis Code(s): K51.90 - ULCERATIVE COLITIS, UNSPECIFIED, WITHOUT COMPLICATIONS SNOMED Code(s): 58224863 Comment: - Continue balsalazide (8) Atrial fibrillation Code(s): I48.91 - UNSPECIFIED ATRIAL FIBRILLATION SNOMED Code(s): 49985822 Comment: - Intermittent pacing with underlying afib/flutter with runs of SVT and Vtach - No AC 2/2 recent ICH - Had recent discharge of her AICD and patient requested to have it turned off - continue tele and supportive care (9) Iron deficiency anemia Code(s): D50.9 - IRON DEFICIENCY ANEMIA, UNSPECIFIED SNOMED Code(s): 68735073 Comment: - Continue ferrous sulfate (10) DNR (do not resuscitate) Comment: - Confirmed that patient recently the defibrillator on her AICD turned off, pacing only - will discontinue telemetry Status and Disposition: Inpatient. Given additional changes in mental status with new O2 requirement and arrhythmias, concern that patient is failing. Continue pursing hospice referral and appropriate disposition. Will likely move to [facility] after seen by ID and hospice plan can be determined.
[2018-12-10] MEDS ORDERED: Morphine ORAL CONCENTRATE* 5 MG/0.25 ML ORAL.SYRIN SL PRN (14:59)
[2018-12-10] MEDS: Digoxin TAB* 0.125 MG PO SCH (16:19)
[2018-12-10] MEDS: Vancomycin(*) 500 MG in NS 0.9% 250 ML* 250 ML IVPB SCH (21:22)
[2018-12-11] MEDS: Levothyroxine TAB* 25 MCG TAB PO SCH (05:33)
[2018-12-11] MEDS: Pantoprazole TAB * 40 MG TAB PO SCH ×2 (08:51→09:52)
[2018-12-11] MEDS: Ferrous Sulfate TAB* 325 MG PO SCH ×2 (08:51→09:52)
[2018-12-11] MEDS: Metoprolol Tartrate TAB* 50 mg PO SCH ×3 (08:51→20:17)
[2018-12-11] MEDS: Atorvastatin* 80 MG TAB PO SCH ×2 (08:51→09:52)
[2018-12-11] MEDS: Carvedilol TAB* 25 MG PO SCH ×3 (08:51→20:17)
[2018-12-11] MEDS: Aspirin EC TAB* 81 MG TAB.EC PO SCH ×2 (08:52→09:52)
[2018-12-11] MEDS: Vancomycin(*) 500 MG in NS 0.9% 250 ML* 250 ML IVPB SCH ×2 (08:52→20:16)
[2018-12-11] MEDS: metFORMIN* 1,000 MG TAB PO SCH ×3 (08:52→20:20)
[2018-12-11] MEDS: Oral Rinse (Biotene)(NF) 237 ML or 473 ML ORAL RINSE BTL MT SCH ×2 (09:52→20:21)
[2018-12-11] MEDS: BALSALAZIDE SODIUM 750 MG PO SCH ×2 (09:52→20:19)
--- NOTE | 2018-12-11 11:50 | PN ---
Subjective Date of Service: 12/11/18 Interval History: Pt is confused today. Refused to eat breakfast. wants her children to start eating first. there is nobody else in the room. Denies pain Objective Active Medications: Acetaminophen (Tylenol Tab*) 650 mg PO Q4H PRN PRN Reason: FEVER/PAIN Last Admin: 12/09/18 21:13 Dose: 650 mg Aspirin (Aspirin Ec Tab*) 81 mg PO DAILY [facility] Last Admin: 12/11/18 09:52 Dose: Not Given Atorvastatin Calcium (Lipitor*) 80 mg PO DAILY [facility] Last Admin: 12/11/18 09:52 Dose: Not Given Balsalazide (Colazal Cap(Nf)) 1,500 mg PO BID [facility]; Protocol Last Admin: 12/11/18 09:52 Dose: Not Given Carvedilol (Coreg Tab*) 25 mg PO BID [facility] Last Admin: 12/11/18 09:52 Dose: Not Given Digoxin (Lanoxin Tab*) 0.125 mg PO QPM@1700 [facility] Last Admin: 12/10/18 16:19 Dose: 0.125 mg Ferrous Sulfate (Ferrous Sulfate Tab*) 325 mg PO DAILY [facility] Last Admin: 12/11/18 09:52 Dose: Not Given Vancomycin HCl 500 mg/ Sodium (Chloride) 250 mls @ 166.667 mls/hr IVPB Q12H [facility] Last Admin: 12/11/18 08:52 Dose: 166.667 mls/hr Levothyroxine Sodium (Synthroid Tab*) 12.5 mcg PO DAILY@0600 [facility] Last Admin: 12/11/18 05:33 Dose: 12.5 mcg Magnesium Hydroxide (Milk Of Magnesia Liq*) 30 ml PO Q4H PRN PRN Reason: CONSTIPATION Metformin HCl (Glucophage*) 1,000 mg PO BID [facility] Last Admin: 12/11/18 09:52 Dose: Not Given Metoprolol Tartrate (Lopressor Tab*) 75 mg PO BID [facility] Last Admin: 12/11/18 09:52 Dose: Not Given Morphine Sulfate (Morphine Oral Concentrate*) 5 mg SL Q4H PRN PRN Reason: Pain or respiratory distress Multi-Ingredient Mouthwash/Gargle (Biotene Dry Mouth Oral Rinse(Nf)) 15 ml MT BID [facility] Last Admin: 12/11/18 09:52 Dose: Not Given Ondansetron HCl (Zofran Inj*) 4 mg IV Q4H PRN PRN Reason: NAUSEA/VOMITING Last Admin: 12/08/18 19:19 Dose: 4 mg Pantoprazole Sodium (Protonix Tab*) 40 mg PO DAILY [facility] Last Admin: 12/11/18 09:52 Dose: Not Given Pharmacy Profile Note (Vancomycin Trough Check) 1 note FOLLOW UP 0830 ONE Stop: 12/12/18 08:31 Senna (Senokot Tab*) 2 tab PO BEDTIME PRN PRN Reason: CONSTIPATION Last Admin: 12/07/18 21:14 Dose: 2 tab Vital Signs - 8 hr 12/11/18 12/11/18 07:54 08:00 Temperature 98.3 F Pulse Rate 69 Respiratory 15 16 Rate Blood Pressure 129/48 (mmHg) O2 Sat by Pulse 92 Oximetry Oxygen Devices in Use Now: Nasal Cannula Appearance: 83 yo F in nAD, AAOx1 Eyes: No Scleral Icterus, PERRLA Ears/Nose/Mouth/Throat: NL Teeth, Lips, Gums, Mucous Membranes Moist Neck: NL Appearance and Movements; NL JVP, Trachea Midline Respiratory: Symmetrical Chest Expansion and Respiratory Effort Cardiovascular: - - irregular Abdominal: NL Sounds; No Tenderness; No Distention, No Hepatosplenomegaly Lymphatic: No Cervical Adenopathy Extremities: No Edema, No Clubbing, Cyanosis Skin: No Nodules or Sclerosis Neurological: NL Muscle Strength and Tone Result Diagrams: 12/07/18 16:42 12/10/18 07:57 Additional Lab and Data: Lab Results 12/07/18 12/07/18 Range/Units 16:42 16:42 WBC 9.8 (3.5-10.8) 10^3/uL RBC 3.52 L (3.70-4.87) 10^6 /uL Hgb 10.7 L (12.0-16.0) g/dL Hct 32 L (33-41) % MCV 90 (80-97) fL MCH 31 (27-31) pg MCHC 34 (31-36) g/dL RDW 19 H (10.5-15) % Plt Count 184 (150-450) 10^3/uL MPV 7.8 (7.4-10.4) fL Neut % (Auto) 66.4 % Lymph % (Auto) 22.8 % Baker % (Auto) 8.9 % Eos % (Auto) 1.5 % Baso % (Auto) 0.4 % Absolute Neuts (auto) 6.5 (1.5-7.7) 10^3/ul Absolute Lymphs (auto) 2.2 (1.0-4.8) 10^3/ul Absolute Monos (auto) 0.9 H (0-0.8) 10^3/ul Absolute Eos (auto) 0.1 (0-0.6) 10^3/ul Absolute Basos (auto) 0 (0-0.2) 10^3/ul Absolute Nucleated RBC 0 10^3/ul Nucleated RBC % 0 INR (Anticoag Therapy) 1.16 H (0.77-1.02) Microbiology and Other Data: Microbiology 12/08/18 15:34 Aerobic Blood Culture - Preliminary Blood Venous No Growth Day 1 Anaerobic Blood Culture - Preliminary No Growth Day 1 12/08/18 11:36 Aerobic Blood Culture - Preliminary Blood Venous No Growth Day 1 Anaerobic Blood Culture - Preliminary No Growth Day 1 12/08/18 11:40 Aerobic Blood Culture - Preliminary Blood Venous No Growth Day 1 Anaerobic Blood Culture - Preliminary No Growth Day 1 Diagnostic Imaging: CARDIAC ECHO: Conclusions Mild concentric left ventricular hypertrophy is observed. Mild global hypokinesis of the left ventricle is observed. The estimated ejection fraction is 45-50%. There is abnormal ventricular septal wall motion consistent with right ventricular pacemaker. The assessment of diastolic function is non-diagnostic. A pacemaker wire is visualized in the right ventricle. The right ventricular chamber size and systolic function are within normal limits. The aortic valve leaflets are mildly thickened. There is no evidence of aortic stenosis. A porcine bioprosthetic mitral valve is present. The bioprosthetic mitral valve appears to be functioning normally. There is a mobile structure moving with the valve leaflets. Measures 0.8 cm by 0.5 cm There is a trace of mitral regurgitation. There is trace tricuspid regurgitation. There is evidence of mild pulmonary hypertension. There is no significant pericardial effusion. Compared to study of 09/28/18, the LV function is slightly lower. 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 - Patient Problems (1) Mitral valve vegetation Comment: - Consult with Dr. Beau ralph, recommends blood cultures and ID consultation - Per ID, will continue vanco 500mg BID, transition to doxy PO at discharge - Extensive family meetings and discussion, patient will be referred for hospice when plan can be decided, as she is not a candidate for another valve replacement or any invasive measures. - Will discontinue telemetry (2) Diabetes Comment: - CC diet, lispro SS - lantus held (3) Hemorrhagic cerebrovascular accident (CVA) Comment: - Noted CVA last month with bleed after patient was started on ASA and Eliquis - CT brain with no new pathology this stay - Supportive care (4) Ulcerative colitis Comment: - Continue balsalazide (5) Atrial fibrillation Comment: - h/o ntermittent pacing with underlying afib/flutter with runs of SVT and Vtach - No AC 2/2 recent ICH - Had recent discharge of her AICD and patient requested to have it turned off (6) DNR (do not resuscitate) Current Visit: No Comment: - Confirmed that patient recently the defibrillator on her AICD turned off, pacing only (7) DVT prophylaxis Comment: SCDs Status and Disposition: Inpatient. Given changes in mental status with new O2 requirement and arrhythmias, concern that patient is failing. Continue pursing hospice referral and appropriate disposition. Will likely move to [facility] soon and hospice plan can be determined.
[2018-12-11] MEDS: Acetaminophen TAB* 325 MG PO PRN (15:33)
[2018-12-11] MEDS: Digoxin TAB* 0.125 MG PO SCH (15:34)
[2018-12-11] MEDS: Ondansetron INJ* 2 MG/ML VIAL IV PRN (18:57)
[2018-12-12] MEDS: Levothyroxine TAB* 25 MCG TAB PO SCH (05:25)
[2018-12-12 06:32] LABS: EGFR African American 56.5 (>60); EGFR Non-African American 46.7 (>60)
[2018-12-12] MEDS ORDERED: Vancomycin Trough Check NOTE FOLLOW UP ONE (08:30)
[2018-12-12] MEDS: Vancomycin(*) 500 MG in NS 0.9% 250 ML* 250 ML IVPB SCH ×2 (09:29→20:05)
[2018-12-12] MEDS: Metoprolol Tartrate TAB* 50 mg PO SCH ×2 (10:05→20:09)
[2018-12-12] MEDS: BALSALAZIDE SODIUM 750 MG PO SCH ×2 (10:05→20:11)
[2018-12-12] MEDS: Aspirin EC TAB* 81 MG TAB.EC PO SCH (10:05)
[2018-12-12] MEDS: Atorvastatin* 80 MG TAB PO SCH (10:05)
[2018-12-12] MEDS: Pantoprazole TAB * 40 MG TAB PO SCH (10:05)
[2018-12-12] MEDS: Carvedilol TAB* 25 MG PO SCH ×2 (10:05→20:08)
[2018-12-12] MEDS: metFORMIN* 1,000 MG TAB PO SCH ×2 (10:05→20:12)
[2018-12-12] MEDS: Oral Rinse (Biotene)(NF) 237 ML or 473 ML ORAL RINSE BTL MT SCH ×2 (10:05→19:57)
--- NOTE | 2018-12-12 16:22 | PN ---
Subjective Date of Service: 12/12/18 Interval History: Appears comfortable.Denies any complains Objective Active Medications: Acetaminophen (Tylenol Tab*) 650 mg PO Q4H PRN PRN Reason: FEVER/PAIN Last Admin: 12/11/18 15:33 Dose: 650 mg Aspirin (Aspirin Ec Tab*) 81 mg PO DAILY [facility] Last Admin: 12/12/18 10:05 Dose: Not Given Atorvastatin Calcium (Lipitor*) 80 mg PO DAILY [facility] Last Admin: 12/12/18 10:05 Dose: Not Given Balsalazide (Colazal Cap(Nf)) 1,500 mg PO BID [facility]; Protocol Last Admin: 12/12/18 10:05 Dose: Not Given Carvedilol (Coreg Tab*) 25 mg PO BID [facility] Last Admin: 12/12/18 10:05 Dose: Not Given Digoxin (Lanoxin Tab*) 0.125 mg PO QPM@1700 [facility] Last Admin: 12/11/18 15:34 Dose: 0.125 mg Vancomycin HCl 500 mg/ Sodium (Chloride) 250 mls @ 166.667 mls/hr IVPB Q24H [facility] Levothyroxine Sodium (Synthroid Tab*) 12.5 mcg PO DAILY@0600 [facility] Last Admin: 12/12/18 05:25 Dose: Not Given Magnesium Hydroxide (Milk Of Magnesia Liq*) 30 ml PO Q4H PRN PRN Reason: CONSTIPATION Metformin HCl (Glucophage*) 1,000 mg PO BID [facility] Last Admin: 12/12/18 10:05 Dose: Not Given Metoprolol Tartrate (Lopressor Tab*) 75 mg PO BID [facility] Last Admin: 12/12/18 10:05 Dose: Not Given Morphine Sulfate (Morphine Oral Concentrate*) 5 mg SL Q4H PRN PRN Reason: Pain or respiratory distress Multi-Ingredient Mouthwash/Gargle (Biotene Dry Mouth Oral Rinse(Nf)) 15 ml MT BID [facility] Last Admin: 12/12/18 10:05 Dose: Not Given Ondansetron HCl (Zofran Inj*) 4 mg IV Q4H PRN PRN Reason: NAUSEA/VOMITING Last Admin: 12/11/18 18:57 Dose: 4 mg Pantoprazole Sodium (Protonix Tab*) 40 mg PO DAILY [facility] Last Admin: 12/12/18 10:05 Dose: Not Given Pharmacy Profile Note (Vancomycin Trough Check) 1 note FOLLOW UP ONCE ONE Stop: 12/15/18 20:31 Senna (Senokot Tab*) 2 tab PO BEDTIME PRN PRN Reason: CONSTIPATION Last Admin: 12/07/18 21:14 Dose: 2 tab Vital Signs - 8 hr 12/12/18 12/12/18 12/12/18 10:00 11:27 15:54 Temperature 97.2 F 97.9 F Pulse Rate 79 70 Respiratory 16 16 18 Rate Blood Pressure 150/51 151/52 (mmHg) O2 Sat by Pulse 94 93 Oximetry Oxygen Devices in Use Now: Nasal Cannula Eyes: No Scleral Icterus Neck: NL Appearance and Movements; NL JVP Respiratory: Symmetrical Chest Expansion and Respiratory Effort, Clear to Auscultation Cardiovascular: NL Sounds; No Murmurs; No JVD Extremities: No Edema Neurological: - - confused but alert oriented *2 Result Diagrams: 12/07/18 16:42 12/12/18 05:30 Additional Lab and Data: Lab Results 12/07/18 12/07/18 Range/Units 16:42 16:42 WBC 9.8 (3.5-10.8) 10^3/uL RBC 3.52 L (3.70-4.87) 10^6 /uL Hgb 10.7 L (12.0-16.0) g/dL Hct 32 L (33-41) % MCV 90 (80-97) fL MCH 31 (27-31) pg MCHC 34 (31-36) g/dL RDW 19 H (10.5-15) % Plt Count 184 (150-450) 10^3/uL MPV 7.8 (7.4-10.4) fL Neut % (Auto) 66.4 % Lymph % (Auto) 22.8 % [place] % (Auto) 8.9 % Eos % (Auto) 1.5 % Baso % (Auto) 0.4 % Absolute Neuts (auto) 6.5 (1.5-7.7) 10^3/ul Absolute Lymphs (auto) 2.2 (1.0-4.8) 10^3/ul Absolute Monos (auto) 0.9 H (0-0.8) 10^3/ul Absolute Eos (auto) 0.1 (0-0.6) 10^3/ul Absolute Basos (auto) 0 (0-0.2) 10^3/ul Absolute Nucleated RBC 0 10^3/ul Nucleated RBC % 0 INR (Anticoag Therapy) 1.16 H (0.77-1.02) Microbiology and Other Data: Microbiology 12/08/18 15:34 Aerobic Blood Culture - Preliminary Blood Venous No Growth Day 1 Anaerobic Blood Culture - Preliminary No Growth Day 1 12/08/18 11:36 Aerobic Blood Culture - Preliminary Blood Venous No Growth Day 1 Anaerobic Blood Culture - Preliminary No Growth Day 1 12/08/18 11:40 Aerobic Blood Culture - Preliminary Blood Venous No Growth Day 1 Anaerobic Blood Culture - Preliminary No Growth Day 1 Diagnostic Imaging: CARDIAC ECHO: Conclusions Mild concentric left ventricular hypertrophy is observed. Mild global hypokinesis of the left ventricle is observed. The estimated ejection fraction is 45-50%. There is abnormal ventricular septal wall motion consistent with right ventricular pacemaker. The assessment of diastolic function is non-diagnostic. A pacemaker wire is visualized in the right ventricle. The right ventricular chamber size and systolic function are within normal limits. The aortic valve leaflets are mildly thickened. There is no evidence of aortic stenosis. A porcine bioprosthetic mitral valve is present. The bioprosthetic mitral valve appears to be functioning normally. There is a mobile structure moving with the valve leaflets. Measures 0.8 cm by 0.5 cm There is a trace of mitral regurgitation. There is trace tricuspid regurgitation. There is evidence of mild pulmonary hypertension. There is no significant pericardial effusion. Compared to study of 09/28/18, the LV function is slightly lower. The Mitral valve mass is newly seen Assess/Plan/Problems-Billing Assessment: This is an 83 year old female with recent hx of CVA with hemorrhagic conversion , CAD, [place], mitral valve replacement that was sent from [facility] with complaints of weakness, chest pain and potential UTI, found to have vegetation on mitral valve. - Patient Problems (1) Mitral valve vegetation Current Visit: Yes Status: Acute Code(s): I33.0 - ACUTE AND SUBACUTE INFECTIVE ENDOCARDITIS SNOMED Code(s): 698909907 Comment: - Consult with Dr. Beau ralph, recommends blood cultures and ID consultation - Per ID, will continue vanco 500mg BID, transition to doxy PO at discharge - Extensive family meetings and discussion, patient will be referred for hospice when plan can be decided, as she is not a candidate for another valve replacement or any invasive measures. - Will discontinue telemetry (2) DVT prophylaxis Current Visit: No Status: Acute Code(s): EQY8038 - SNOMED Code(s): 149940104 Comment: SCDs (3) Diabetes Current Visit: No Status: Acute Code(s): E11.9 - TYPE 2 DIABETES MELLITUS WITHOUT COMPLICATIONS SNOMED Code(s): 71167464 Comment: - CC diet, lispro SS - lantus held (4) DNR (do not resuscitate) Current Visit: No Status: Acute Comment: - Confirmed that patient recently the defibrillator on her AICD turned off, pacing only Status and Disposition: Inpatient. Given changes in mental status with new O2 requirement and arrhythmias, concern that patient is failing. Continue pursing hospice referral and appropriate disposition. Will likely move to [facility] soon and hospice plan can be determined.
[2018-12-12] MEDS: Digoxin TAB* 0.125 MG PO SCH (18:13)
[2018-12-12] MEDS: Nystatin TOP POWDER* 15 GM BTL TOPICAL SCH (23:46)
[2018-12-13] MEDS: Levothyroxine TAB* 25 MCG TAB PO SCH (05:28)
[2018-12-13] MEDS: Metoprolol Tartrate TAB* 50 mg PO SCH ×2 (10:31→20:37)
[2018-12-13] MEDS: Aspirin EC TAB* 81 MG TAB.EC PO SCH (10:32)
[2018-12-13] MEDS: metFORMIN* 1,000 MG TAB PO SCH ×2 (10:32→20:38)
[2018-12-13] MEDS: Pantoprazole TAB * 40 MG TAB PO SCH (10:34)
[2018-12-13] MEDS: Atorvastatin* 80 MG TAB PO SCH (10:34)
[2018-12-13] MEDS: Carvedilol TAB* 25 MG PO SCH ×2 (10:34→20:36)
[2018-12-13] MEDS: BALSALAZIDE SODIUM 750 MG PO SCH ×2 (10:34→20:35)
[2018-12-13] MEDS: Oral Rinse (Biotene)(NF) 237 ML or 473 ML ORAL RINSE BTL MT SCH ×2 (11:12→20:31)
[2018-12-13] MEDS: Nystatin TOP POWDER* 15 GM BTL TOPICAL SCH ×2 (11:12→20:39)
[2018-12-13] MEDS: Acetaminophen TAB* 325 MG PO PRN (15:12)
--- NOTE | 2018-12-13 17:45 | PN ---
Subjective Date of Service: 12/13/18 Interval History: More awake and communicative today.Denies any complaints Objective Active Medications: Acetaminophen (Tylenol Tab*) 650 mg PO Q4H PRN PRN Reason: FEVER/PAIN Last Admin: 12/13/18 15:12 Dose: 650 mg Aspirin (Aspirin Ec Tab*) 81 mg PO DAILY [facility] Last Admin: 12/13/18 10:32 Dose: 81 mg Atorvastatin Calcium (Lipitor*) 80 mg PO DAILY [facility] Last Admin: 12/13/18 10:34 Dose: 80 mg Balsalazide (Colazal Cap(Nf)) 1,500 mg PO BID [facility]; Protocol Last Admin: 12/13/18 10:34 Dose: 1,500 mg Carvedilol (Coreg Tab*) 25 mg PO BID [facility] Last Admin: 12/13/18 10:34 Dose: 25 mg Digoxin (Lanoxin Tab*) 0.125 mg PO QPM@1700 [facility] Last Admin: 12/12/18 18:13 Dose: Not Given Vancomycin HCl 500 mg/ Sodium (Chloride) 250 mls @ 166.667 mls/hr IVPB Q24H [facility] Last Admin: 12/12/18 20:05 Dose: 166.667 mls/hr Levothyroxine Sodium (Synthroid Tab*) 12.5 mcg PO DAILY@0600 [facility] Last Admin: 12/13/18 05:28 Dose: Not Given Magnesium Hydroxide (Milk Of Magnesia Liq*) 30 ml PO Q4H PRN PRN Reason: CONSTIPATION Metformin HCl (Glucophage*) 1,000 mg PO BID [facility] Last Admin: 12/13/18 10:32 Dose: 1,000 mg Metoprolol Tartrate (Lopressor Tab*) 75 mg PO BID [facility] Last Admin: 12/13/18 10:31 Dose: 75 mg Morphine Sulfate (Morphine Oral Concentrate*) 5 mg SL Q4H PRN PRN Reason: Pain or respiratory distress Multi-Ingredient Mouthwash/Gargle (Biotene Dry Mouth Oral Rinse(Nf)) 15 ml MT BID [facility] Last Admin: 12/13/18 11:12 Dose: Not Given Nystatin (Nystatin Top Powder*) 1 applic TOPICAL BID [facility] Last Admin: 12/13/18 11:12 Dose: Not Given Ondansetron HCl (Zofran Inj*) 4 mg IV Q4H PRN PRN Reason: NAUSEA/VOMITING Last Admin: 12/11/18 18:57 Dose: 4 mg Pantoprazole Sodium (Protonix Tab*) 40 mg PO DAILY [facility] Last Admin: 12/13/18 10:34 Dose: 40 mg Pharmacy Profile Note (Vancomycin Trough Check) 1 note FOLLOW UP ONCE ONE Stop: 12/15/18 20:31 Senna (Senokot Tab*) 2 tab PO BEDTIME PRN PRN Reason: CONSTIPATION Last Admin: 12/07/18 21:14 Dose: 2 tab Oxygen Devices in Use Now: Nasal Cannula Eyes: No Scleral Icterus Neck: NL Appearance and Movements; NL JVP Respiratory: Symmetrical Chest Expansion and Respiratory Effort, Clear to Auscultation Cardiovascular: NL Sounds; No Murmurs; No JVD Abdominal: NL Sounds; No Tenderness; No Distention Extremities: No Edema Neurological: - - alert oriented *2 Result Diagrams: 12/07/18 16:42 12/12/18 05:30 Additional Lab and Data: Lab Results 12/07/18 12/07/18 Range/Units 16:42 16:42 WBC 9.8 (3.5-10.8) 10^3/uL RBC 3.52 L (3.70-4.87) 10^6 /uL Hgb 10.7 L (12.0-16.0) g/dL Hct 32 L (33-41) % MCV 90 (80-97) fL MCH 31 (27-31) pg MCHC 34 (31-36) g/dL RDW 19 H (10.5-15) % Plt Count 184 (150-450) 10^3/uL MPV 7.8 (7.4-10.4) fL Neut % (Auto) 66.4 % Lymph % (Auto) 22.8 % [place]nn % (Auto) 8.9 % Eos % (Auto) 1.5 % Baso % (Auto) 0.4 % Absolute Neuts (auto) 6.5 (1.5-7.7) 10^3/ul Absolute Lymphs (auto) 2.2 (1.0-4.8) 10^3/ul Absolute Monos (auto) 0.9 H (0-0.8) 10^3/ul Absolute Eos (auto) 0.1 (0-0.6) 10^3/ul Absolute Basos (auto) 0 (0-0.2) 10^3/ul Absolute Nucleated RBC 0 10^3/ul Nucleated RBC % 0 INR (Anticoag Therapy) 1.16 H (0.77-1.02) Microbiology and Other Data: Microbiology 12/08/18 15:34 Aerobic Blood Culture - Preliminary Blood Venous No Growth Day 1 Anaerobic Blood Culture - Preliminary No Growth Day 1 12/08/18 11:36 Aerobic Blood Culture - Preliminary Blood Venous No Growth Day 1 Anaerobic Blood Culture - Preliminary No Growth Day 1 12/08/18 11:40 Aerobic Blood Culture - Preliminary Blood Venous No Growth Day 1 Anaerobic Blood Culture - Preliminary No Growth Day 1 Diagnostic Imaging: CARDIAC ECHO: Conclusions Mild concentric left ventricular hypertrophy is observed. Mild global hypokinesis of the left ventricle is observed. The estimated ejection fraction is 45-50%. There is abnormal ventricular septal wall motion consistent with right ventricular pacemaker. The assessment of diastolic function is non-diagnostic. A pacemaker wire is visualized in the right ventricle. The right ventricular chamber size and systolic function are within normal limits. The aortic valve leaflets are mildly thickened. There is no evidence of aortic stenosis. A porcine bioprosthetic mitral valve is present. The bioprosthetic mitral valve appears to be functioning normally. There is a mobile structure moving with the valve leaflets. Measures 0.8 cm by 0.5 cm There is a trace of mitral regurgitation. There is trace tricuspid regurgitation. There is evidence of mild pulmonary hypertension. There is no significant pericardial effusion. Compared to study of 09/28/18, the LV function is slightly lower. The Mitral valve mass is newly seen Assess/Plan/Problems-Billing Assessment: This is an 83 year old female with recent hx of CVA with hemorrhagic conversion , CAD, [place], mitral valve replacement that was sent from [facility] with complaints of weakness, chest pain and potential UTI, found to have vegetation on mitral valve. - Patient Problems (1) Mitral valve vegetation Current Visit: Yes Status: Acute Code(s): I33.0 - ACUTE AND SUBACUTE INFECTIVE ENDOCARDITIS SNOMED Code(s): 209353400 Comment: - Consult with Dr. Beau ralph, recommended blood cultures and ID consultation - Per ID, will continue Vancomycin, transition to doxy PO at discharge - Extensive family meetings and discussion, patient will be referred for hospice when plan can be decided, as she is not a candidate for another valve replacement or any invasive measures. - Will discontinue telemetry (2) Diabetes Current Visit: No Status: Acute Code(s): E11.9 - TYPE 2 DIABETES MELLITUS WITHOUT COMPLICATIONS SNOMED Code(s): 96878112 Comment: - CC diet, lispro SS - lantus held (3) DNR (do not resuscitate) Current Visit: No Status: Acute Comment: - Confirmed that patient recently the defibrillator on her AICD turned off, pacing only (4) DVT prophylaxis Current Visit: No Status: Acute Code(s): VIU8846 - SNOMED Code(s): 529053144 Comment: SCDs Status and Disposition: Inpatient. Given changes in mental status with new O2 requirement and arrhythmias, concern that patient is failing. Continue pursing hospice referral and appropriate disposition. Will likely move to [facility] soon and hospice plan can be determined.
[2018-12-13] MEDS: Digoxin TAB* 0.125 MG PO SCH (18:28)
[2018-12-13] MEDS: Vancomycin(*) 500 MG in NS 0.9% 250 ML* 250 ML IVPB SCH (20:34)
[2018-12-14] MEDS: Levothyroxine TAB* 25 MCG TAB PO SCH (05:37)
[2018-12-14] MEDS: Oral Rinse (Biotene)(NF) 237 ML or 473 ML ORAL RINSE BTL MT SCH ×3 (10:21→21:26)
[2018-12-14] MEDS: Nystatin TOP POWDER* 15 GM BTL TOPICAL SCH ×2 (10:21→21:27)
[2018-12-14] MEDS: BALSALAZIDE SODIUM 750 MG PO SCH ×2 (10:22→21:27)
[2018-12-14] MEDS: Atorvastatin* 80 MG TAB PO SCH (10:23)
[2018-12-14] MEDS: Pantoprazole TAB * 40 MG TAB PO SCH (10:23)
[2018-12-14] MEDS: Aspirin EC TAB* 81 MG TAB.EC PO SCH (10:23)
[2018-12-14] MEDS: Metoprolol Tartrate TAB* 50 mg PO SCH ×2 (10:23→21:24)
[2018-12-14] MEDS: Carvedilol TAB* 25 MG PO SCH ×2 (10:23→21:26)
[2018-12-14] MEDS: metFORMIN* 1,000 MG TAB PO SCH ×2 (10:23→21:25)
--- NOTE | 2018-12-14 16:13 | PN ---
Subjective Date of Service: 12/14/18 Interval History: HOSPITALIST PROGRESS NOTE Patient seen and examined at bedside. Care reviewed and d/w Kaitlin Coleman RN. Son (Nikolai) updated at bedside. She's in good spirits today, offers no complaints. Family History: Unchanged from Admission Social History: Unchanged from Admission Past Medical History: Unchanged from Admission Objective Active Medications: Acetaminophen (Tylenol Tab*) 650 mg PO Q4H PRN PRN Reason: FEVER/PAIN Last Admin: 12/13/18 15:12 Dose: 650 mg Aspirin (Aspirin Ec Tab*) 81 mg PO DAILY [facility] Last Admin: 12/14/18 10:23 Dose: 81 mg Atorvastatin Calcium (Lipitor*) 80 mg PO DAILY [facility] Last Admin: 12/14/18 10:23 Dose: 80 mg Balsalazide (Colazal Cap(Nf)) 1,500 mg PO BID [facility]; Protocol Last Admin: 12/14/18 10:22 Dose: 1,500 mg Carvedilol (Coreg Tab*) 25 mg PO BID [facility] Last Admin: 12/14/18 10:23 Dose: 25 mg Digoxin (Lanoxin Tab*) 0.125 mg PO QPM@1700 [facility] Last Admin: 12/13/18 18:28 Dose: Not Given Vancomycin HCl 500 mg/ Sodium (Chloride) 250 mls @ 166.667 mls/hr IVPB Q24H [facility] Last Admin: 12/13/18 20:34 Dose: 166.667 mls/hr Levothyroxine Sodium (Synthroid Tab*) 12.5 mcg PO DAILY@0600 [facility] Last Admin: 12/14/18 05:37 Dose: 12.5 mcg Magnesium Hydroxide (Milk Of Magnesia Liq*) 30 ml PO Q4H PRN PRN Reason: CONSTIPATION Metformin HCl (Glucophage*) 1,000 mg PO BID [facility] Last Admin: 12/14/18 10:23 Dose: 1,000 mg Metoprolol Tartrate (Lopressor Tab*) 75 mg PO BID [facility] Last Admin: 12/14/18 10:23 Dose: 75 mg Morphine Sulfate (Morphine Oral Concentrate*) 5 mg SL Q4H PRN PRN Reason: Pain or respiratory distress Multi-Ingredient Mouthwash/Gargle (Biotene Dry Mouth Oral Rinse(Nf)) 15 ml MT BID [facility] Last Admin: 12/14/18 10:32 Dose: Not Given Nystatin (Nystatin Top Powder*) 1 applic TOPICAL BID [facility] Last Admin: 12/14/18 10:21 Dose: 1 applic Ondansetron HCl (Zofran Inj*) 4 mg IV Q4H PRN PRN Reason: NAUSEA/VOMITING Last Admin: 12/11/18 18:57 Dose: 4 mg Pantoprazole Sodium (Protonix Tab*) 40 mg PO DAILY [facility] Last Admin: 12/14/18 10:23 Dose: 40 mg Pharmacy Profile Note (Vancomycin Trough Check) 1 note FOLLOW UP ONCE ONE Stop: 12/15/18 20:31 Senna (Senokot Tab*) 2 tab PO BEDTIME PRN PRN Reason: CONSTIPATION Last Admin: 12/07/18 21:14 Dose: 2 tab Oxygen Devices in Use Now: None Appearance: Elderly lady lying in bed in NAD Eyes: No Scleral Icterus Ears/Nose/Mouth/Throat: Mucous Membranes Moist Neck: Trachea Midline Respiratory: Symmetrical Chest Expansion and Respiratory Effort, Clear to Auscultation Cardiovascular: RRR - Normal S1 and S2 Neurological: - - AAOx2 (self and place) Result Diagrams: 12/07/18 16:42 12/12/18 05:30 Diagnostic Imaging: CARDIAC ECHO: Conclusions Mild concentric left ventricular hypertrophy is observed. Mild global hypokinesis of the left ventricle is observed. The estimated ejection fraction is 45-50%. There is abnormal ventricular septal wall motion consistent with right ventricular pacemaker. The assessment of diastolic function is non-diagnostic. A pacemaker wire is visualized in the right ventricle. The right ventricular chamber size and systolic function are within normal limits. The aortic valve leaflets are mildly thickened. There is no evidence of aortic stenosis. A porcine bioprosthetic mitral valve is present. The bioprosthetic mitral valve appears to be functioning normally. There is a mobile structure moving with the valve leaflets. Measures 0.8 cm by 0.5 cm There is a trace of mitral regurgitation. There is trace tricuspid regurgitation. There is evidence of mild pulmonary hypertension. There is no significant pericardial effusion. Compared to study of 09/28/18, the LV function is slightly lower. The Mitral valve mass is newly seen Assess/Plan/Problems-Billing Assessment: This is an 83 year old female with recent hx of CVA with hemorrhagic conversion , CAD, UT, mitral valve replacement that was sent from [facility] with complaints of weakness, chest pain and potential UTI, found to have vegetation on mitral valve. - Patient Problems (1) Mitral valve vegetation Comment: - Consult with Dr. Beau ralph, recommended blood cultures and ID consultation - Per ID, will continue Vancomycin, transition to doxy PO at discharge - Extensive family meetings and discussion: as she is not a candidate for another valve replacement or any invasive measures plan is for Hospice. Family would like to take her home with Hospice, but don't have home care arranged yet. Tentative plan to go to [facility] with Hospice and then transition home. (2) Diabetes Comment: - Continue metformin. (3) CVA (cerebral vascular accident) Comment: - With recent hemorrhagic transformation of her initial ischemic CVA. - Continue low dose ASA and Atorvastatin. (4) DNR (do not resuscitate) Comment: Status and Disposition: Inpatient. Anticipate d/c in AM to CR to Hospice.
[2018-12-14] MEDS: DOXYcycline CAP(*) 100 MG PO SCH (17:58)
[2018-12-14] MEDS: Digoxin TAB* 0.125 MG PO SCH (17:58)
--- NOTE | 2018-12-15 01:28 | DS ---
CC: Dr. Vanessa Gómez; Dr. Hill at [facility] * DISCHARGE SUMMARY: DATE OF ADMISSION: 12/08/18 DATE OF DISCHARGE: 12/15/18 PRIMARY CARE PROVIDER: Dr. Vanessa Gómez. DISCHARGE DIAGNOSES: 1. Mitral valve vegetation, cannot rule out endocarditis. 2. Altered mental status. SECONDARY DIAGNOSES: 1. History of recent cerebrovascular accident with hemorrhagic transformation. 2. Hospital-acquired delirium. 3. Atrial fibrillation. 4. Type 2 diabetes. 5. Hypertension. 6. Depression. 7. Hypothyroidism. 8. Ulcerative colitis. 9. Coronary artery disease. 10. Chronic anemia. 11. Status post mitral valve replacement (porcine). 12. Status post implantable cardioverter defibrillator implantation. MEDICATION LIST: 1. Acetaminophen 650 mg p.o. q.4 hours p.r.n. pain or fever. 2. Aspirin 81 mg p.o. daily. 3. Balsalazide 1500 mg p.o. b.i.d. 4. Coreg 25 mg p.o. b.i.d. 5. Digoxin 0.125 mg p.o. at bedtime. 6. Levothyroxine 12.5 mcg p.o. daily. 7. Metformin 1000 mg p.o. b.i.d. 8. Metoprolol tartrate 75 mg p.o. b.i.d. 9. Biotene dry mouth 15 mL swish and spit b.i.d. 10. Pantoprazole 40 mg p.o. daily. 11. Senna 2 tablets p.o. at bedtime as needed for constipation. New Medications: 1. Doxycycline 100 mg p.o. b.i.d. for 14 days. 2. Morphine oral concentrate 5 mg sublingual q.2 hours p.r.n. pain or tachypnea with respiratory rate greater than 24. 3. Nystatin powder to inguinal folds. HOSPITAL COURSE: Mrs. Anderson is an 83-year-old lady with a complex past medical history as stated above who presented to the emergency department on with altered mental status. She has had a complex history and had a prolonged admission to [facility] from 09/25/18 to 10/30/18 including multiple transfers from the medical floor to [facility] and vice versa. She was discharged to [facility] for rehab where she was noted to have some mental status changes, general weakness with concern for possible urinary tract infection. Since an outpatient urinalysis had shown some nitrites, she was being treated with antibiotics. As her lethargy continued, she was sent to the emergency room for further evaluation. In the ED, her urinalysis showed only 1+ LE and 1+ wbc's. She had a CT of the brain that showed no acute intracranial pathology, only chronic small vessel ischemic change with chronic appearing infarct of the left [employer] territory. Mitral valve vegetation: the patient underwent a transthoracic echocardiogram and it showed an ejection fraction of 45% to 50% with a pacemaker wire visualized in the right ventricle and a 0.8 x 0.5 cm mobile structure was seen on her bioprosthetic mitral valve (porcine). When compared to the study from September 2018, the LV function was slightly lower and the mitral valve was newly seen. The patient was seen in consultation by Cardiology (Dr. Yanez). He did not think aggressive measures were appropriate in this patient. He did not think she should go for a workup for mitral valve replacement given the vegetation on the mitral valve. The patient had 3 sets of blood cultures in the hospital were negative. She was treated with vancomycin while in the hospital, and after discussion with Dr. Mcbride, he recommended 2 more weeks of doxycycline. After conversation with family, decision was made to pursue comfort care measures. She was seen in consultation by Dr. Bravo and she discussed with the son and [id number] which options would be available. She felt that the patient was eligible for hospice based on severe dementia, status post CVA, coronary artery disease, and paroxysmal atrial fibrillation. There were many conversations with the patient's family, and after discussing multiple possibilities, the plan at this point is for the patient to return to [facility] with hospice and the family will continue to make arrangements as they are trying to get her home with hospice, but do not have the care in place at this time. As the goal for her care now is comfort, her insulin and high dose statins were discontinued and the process of deprescription should continue at [facility]. PHYSICAL EXAMINATION: Vital Signs: Temperature 97.9, heart rate is 69, respiratory rate is 20, oxygen saturation 95% on room air, blood pressure is 153 /53. General: The patient is a pleasantly confused elderly lady, lying in bed , in no acute distress. CVS: Normal S1 and S2. Regular rate and rhythm. Chest: Breath sounds bilaterally with no added sounds. Abdomen: Soft, nontender. Bowel sounds are present. Extremities: Trace edema. Neuro: She is alert and oriented x2 to self and place, able to move all 4 extremities. DIET: Regular diet for comfort. ACTIVITY: As tolerated. DISPOSITION: To [facility] with hospice. STATUS WHILE IN THE HOSPITAL: Inpatient. CONDITION AT THE TIME OF DISCHARGE: Guarded. Please keep in mind this is a summarized version of this patient's hospital stay. If you need more information, please feel free to call me at [phone] or please obtain the full medical record. Son was called and updated about patient's condition and plan of care. This discharge summary will serve as a History and Physical at [facility]. TIME SPENT: Approximately 45 minutes was spent on this discharge. [id number] #: [id number] MTDD
[2018-12-15] MEDS: Acetaminophen TAB* 325 MG PO PRN (04:56)
[2018-12-15] MEDS: Levothyroxine TAB* 25 MCG TAB PO SCH (05:00)
[2018-12-15 07:58] VITALS: BP 171/58
[2018-12-15] MEDS: Oral Rinse (Biotene)(NF) 237 ML or 473 ML ORAL RINSE BTL MT SCH (10:30)
[2018-12-15] MEDS: BALSALAZIDE SODIUM 750 MG PO SCH (10:31)
[2018-12-15] MEDS: Atorvastatin* 80 MG TAB PO SCH (10:32)
[2018-12-15] MEDS: metFORMIN* 1,000 MG TAB PO SCH (10:32)
[2018-12-15] MEDS: Carvedilol TAB* 25 MG PO SCH (10:32)
[2018-12-15] MEDS: DOXYcycline CAP(*) 100 MG PO SCH (10:32)
[2018-12-15] MEDS: Metoprolol Tartrate TAB* 50 mg PO SCH (10:33)
[2018-12-15] MEDS: Pantoprazole TAB * 40 MG TAB PO SCH (10:33)
[2018-12-15] MEDS: Aspirin EC TAB* 81 MG TAB.EC PO SCH (10:33)
[2018-12-15] MEDS: Nystatin TOP POWDER* 15 GM BTL TOPICAL SCH (10:35)
[2018-12-15] MEDS ORDERED: Vancomycin Trough Check NOTE FOLLOW UP ONE (20:30)
== END 2018-12-15 12:40 | disposition hospice, home (50) | DRG 289 ==
LOC: ED 16:02 → MED 17:48 → MEDTELE 18:07 → OBSVTOIN 12-08 15:00 → MED 12-11 02:17
PROVIDERS: ADMIT Internal Medicine; ATTEND Internal Medicine
DX: I33.0 Acute and subacute infective endocarditis (principal); N39.0 Urinary tract infection, site not specified; G93.49 Other encephalopathy; I47.2 Ventricular tachycardia; K51.90 Ulcerative colitis, unspecified, without complications; I48.92 Unspecified atrial flutter; I47.1 Supraventricular tachycardia; E83.42 Hypomagnesemia; I48.0 Paroxysmal atrial fibrillation; E11.9 Type 2 diabetes mellitus without complications; Z66 Do not resuscitate; F32.9 Major depressive disorder, single episode, unspecified; E03.9 Hypothyroidism, unspecified; I25.10 Atherosclerotic heart disease of native coronary artery without angina pectoris; D50.9 Iron deficiency anemia, unspecified; I10 Essential (primary) hypertension; K21.9 Gastro-esophageal reflux disease without esophagitis; F03.90 Unspecified dementia, unspecified severity, without behavioral disturbance, psychotic disturbance, mood disturbance, and anxiety; R74.8 Abnormal levels of other serum enzymes; Z86.73 Personal history of transient ischemic attack (TIA), and cerebral infarction without residual deficits; Z95.4 Presence of other heart-valve replacement; Z95.810 Presence of automatic (implantable) cardiac defibrillator; Z95.5 Presence of coronary angioplasty implant and graft; Z95.1 Presence of aortocoronary bypass graft; Z79.84 Long term (current) use of oral hypoglycemic drugs; Z79.1 Long term (current) use of non-steroidal anti-inflammatories (NSAID); Z79.82 Long term (current) use of aspirin; Z79.4 Long term (current) use of insulin; Z79.899 Other long term (current) drug therapy; Z88.8 Allergy status to other drugs, medicaments and biological substances; Z83.3 Family history of diabetes mellitus; Z82.49 Family history of ischemic heart disease and other diseases of the circulatory system
CPT/HCPCS: 36415; 70450; 71045; 80053; 80162; 80202; 81003; 81015; 82140; 82565; 83605; 83735; 84484; 84520; 85025; 85610; 87040; 87077; 87086; 87186; 93005; 93306; 99284; A9270-GY; G0378; G8978-GP-CK; G8979-GP-CI; J0692; J0696; J2405; J3370; J3475